=== PATIENT | female | born 1945 | race Caucasian/White ===

== ENCOUNTER 2017-09-17 17:00 | Emergency (ER) | payer MEDICARE, SELFPAY | END 2017-09-17 20:31 | disposition home or self-care (01) | PROVIDERS: Emergency Provider Emergency Medicine; Visit Provider Emergency Medicine | DX: G43.001 Migraine without aura, not intractable, with status migrainosus (principal); I10 Essential (primary) hypertension; E78.5 Hyperlipidemia, unspecified; J44.9 Chronic obstructive pulmonary disease, unspecified; E11.9 Type 2 diabetes mellitus without complications; Z90.49 Acquired absence of other specified parts of digestive tract; Z95.0 Presence of cardiac pacemaker; Z79.01 Long term (current) use of anticoagulants; Z79.4 Long term (current) use of insulin; Z79.899 Other long term (current) drug therapy; Z91.041 Radiographic dye allergy status; Z88.2 Allergy status to sulfonamides; Z88.8 Allergy status to other drugs, medicaments and biological substances; Z91.048 Other nonmedicinal substance allergy status; I69.320 Aphasia following cerebral infarction; I69.351 Hemiplegia and hemiparesis following cerebral infarction affecting right dominant side; I67.1 Cerebral aneurysm, nonruptured; Z91.81 History of falling | CPT/HCPCS: 70450; 71010; 80053; 82550; 82553; 84484; 85025; 93005; 93041; 96374; 96375; 96376; 99285; J2405 ==

== ENCOUNTER 2017-09-22 09:07 | Emergency (ER) | payer MEDICARE, SELFPAY | END 2017-09-22 11:53 | disposition home or self-care (01) | PROVIDERS: Emergency Provider Emergency Medicine; Family Provider Internal Medicine; Visit Provider Emergency Medicine | DX: R10.31 Right lower quadrant pain (principal); I10 Essential (primary) hypertension; E78.5 Hyperlipidemia, unspecified; J44.9 Chronic obstructive pulmonary disease, unspecified; E11.9 Type 2 diabetes mellitus without complications; Z79.4 Long term (current) use of insulin; Z88.8 Allergy status to other drugs, medicaments and biological substances | CPT/HCPCS: 74176; 80053; 81001; 83690; 85025; 96365; 96372; 96375; 96376; 99284; J2405 ==

== ENCOUNTER 2017-09-23 14:09 | Emergency (ER) | payer MEDICARE, SELFPAY | END 2017-09-23 17:10 | disposition short-term general hospital (02) | PROVIDERS: Emergency Provider Emergency Medicine; Family Provider Internal Medicine; Visit Provider Emergency Medicine | DX: R10.31 Right lower quadrant pain (principal); E11.65 Type 2 diabetes mellitus with hyperglycemia; Z79.4 Long term (current) use of insulin; I10 Essential (primary) hypertension; E78.5 Hyperlipidemia, unspecified; J44.9 Chronic obstructive pulmonary disease, unspecified; Z79.899 Other long term (current) drug therapy; Z88.8 Allergy status to other drugs, medicaments and biological substances; Z88.2 Allergy status to sulfonamides; F41.8 Other specified anxiety disorders; R06.09 Other forms of dyspnea | CPT/HCPCS: 74176; 80053; 83690; 83880; 84484; 85025; 85610; 85730; 93005; 93041; 99284 ==

== ENCOUNTER → 2017-09-23 | Outpatient (CLI) | payer MEDICARE, SELFPAY | PROVIDERS: Family Provider Internal Medicine; Visit Provider Internal Medicine | DX: M25.551 Pain in right hip (principal) | CPT/HCPCS: 73502 ==

== ENCOUNTER → 2017-10-24 15:41 | Outpatient (POV) | payer MEDICARE, SELFPAY ==
[2017-10-24 16:25] VITALS: BP 99/59; PULSE 75; RESP 18; TEMP 36.3; O2SAT 92
--- NOTE | 2017-10-24 16:36 | HMH.PMCON ---
Assessment and Plan (1) Lumbosacral radiculopathy due to degenerative joint disease of spine Current visit: Yes Status: Chronic Category: Medical Code(s): M47.27 - Other spondylosis with radiculopathy, lumbosacral region (2) Degenerative joint disease (DJD) of lumbar spine Current visit: Yes Status: Chronic Category: Medical Code(s): M47.816 - Spondylosis without myelopathy or radiculopathy, lumbar region - Assessment and plan all Dx Assessment and Plan for all problems:: This patient is on Eliquis. We will seek approval for her to come off her else. He has not had any injections I do believe the first place to start is with a lumbar epidural steroid injection. We will seek approval and plan a lumbar epidural steroid injection. Prior to this she needs to be off of her Eliquis for approximately 3 days. She is on a fentanyl patch and oxycodone prescribed by Dr. Medel. She can remain on these for now and he can continue prescribing these medications. HPI - Data of Consult Patient: new to practice Consult date: 10/24/17 Requesting Physician: Shiva Ritchie MD Primary Care Provider: Geovany Medel [facility] Provider: Geovany Medel - Consult Narrative Reason for consult: Low back pain History of present illness: Ms. Leon is a 72 year old female who has a long history of low back pain with previous back surgery. She was currently under the care of the pain clinic at the [facility]. She is currently medically managed with a fentanyl patch 50 mcg +12.5 mcg every 3 days along with oxycodone for breakthrough. She is doing well up until recently when she fell. Most of her pain is in her back. She does have pain going on the right leg. She has a below-knee amputation left leg. She has not had any injections. She is currently on Eliquis. Pain is worsened significantly since a fall. Pain score is a 9-10 out of 10. She has been nonfunctional since her fall. CC: Shiva Ritchie MD [facility] History I have reviewed the patient's past medical history: Yes Medical History: Reports:: Aneurysm, Atrial Fibrillation, Hypertension Other Surgeries: Yes: Pacemaker Amputation: No Fractures: No - *Social History Educational Level: Completed High School Smoking Status: Never smoker Alcohol Intake: never Occupational Status: disabled Housing: house Household Members: spouse - Psychiatric History Expresses thoughts of harming self/others: None Suicide Plan Description: No Plan Review of Systems - Review of Systems Review of systems:: pertinent systems reviewed and negative unless documented below - *Musculoskeletal Reports joint pain, Reports back pain, Reports limited joint movement - *Neurologic Reports radiating pain Meds Allergies Allergy/AdvReac Type Severity Reaction Status Date / Time amitriptyline [From Elavil] Allergy Severe T-[id number]-YCPC/THROAT; Unverified 09/20/17 14:41 SEIZURES chlorpromazine Allergy Severe SEIZURES Unverified 09/20/17 14:41 [From Thorazine] dichloralphenazone Allergy Severe S-SWELLS-OR Unverified 09/20/17 14:41 [From Midrin] AL/THROAT isometheptene [From Midrin] Allergy Severe S-SWELLS-OR Unverified 09/20/17 14:41 AL/THROAT prochlorperazine Allergy Severe SEIZURES Unverified 09/20/17 14:41 [From Compazine] acetaminophen [From MIDRIN] Allergy Intermediate Unverified 09/20/17 14:41 adhesive tape Allergy Intermediate I-RASH Unverified 09/20/17 14:41 aspirin Allergy Intermediate COLD Unverified 09/20/17 14:41 SWEATS , N/V cyclobenzaprine Allergy Unknown Unverified 09/20/17 14:41 [From FLEXERIL] duloxetine [DULOXETINE] Allergy Unknown Unverified 09/20/17 14:41 Iodinated Contrast Media - Allergy Unknown Unverified 09/20/17 14:41 Oral and [IODINATED CONTRAST MEDIA - ORAL AND] Sulfa (Sulfonamide Allergy Unknown CONTRAINDICATED Unverified 09/20/17 14:41 Antibiotics) WITH ASTHMA trimethoprim [TRIMETHOPRIM] Allergy U
--- NOTE | 2017-10-24 16:39 | P.CONS_ITS ---
Assessment and Plan (1) Lumbosacral radiculopathy due to degenerative joint disease of spine Current visit: Yes Status: Chronic Category: Medical Code(s): M47.27 - Other spondylosis with radiculopathy, lumbosacral region (2) Degenerative joint disease (DJD) of lumbar spine Current visit: Yes Status: Chronic Category: Medical Code(s): M47.816 - Spondylosis without myelopathy or radiculopathy, lumbar region - Assessment and plan all Dx Assessment and Plan for all problems:: This patient is on Eliquis. We will seek approval for her to come off her else. He has not had any injections I do believe the first place to start is with a lumbar epidural steroid injection. We will seek approval and plan a lumbar epidural steroid injection. Prior to this she needs to be off of her Eliquis for approximately 3 days. She is on a fentanyl patch and oxycodone prescribed by Dr. Medel. She can remain on these for now and he can continue prescribing these medications. HPI - Data of Consult Patient: new to practice Consult date: 10/24/17 Requesting Physician: Shiva Ritchie MD Primary Care Provider: Geovany Medel [facility] Provider: Geovany Medel - Consult Narrative Reason for consult: Low back pain History of present illness: Ms. Leon is a 72 year old female who has a long history of low back pain with previous back surgery. She was currently under the care of the pain clinic at the [facility]. She is currently medically managed with a fentanyl patch 50 mcg +12.5 mcg every 3 days along with oxycodone for breakthrough. She is doing well up until recently when she fell. Most of her pain is in her back. She does have pain going on the right leg. She has a below-knee amputation left leg. She has not had any injections. She is currently on Eliquis. Pain is worsened significantly since a fall. Pain score is a 9-10 out of 10. She has been nonfunctional since her fall. CC: Shiva Ritchie MD [facility] History I have reviewed the patient's past medical history: Yes Medical History: Reports:: Aneurysm, Atrial Fibrillation, Hypertension Other Surgeries: Yes: Pacemaker Amputation: No Fractures: No - *Social History Educational Level: Completed High School Smoking Status: Never smoker Alcohol Intake: never Occupational Status: disabled Housing: house Household Members: spouse - Psychiatric History Expresses thoughts of harming self/others: None Suicide Plan Description: No Plan Review of Systems - Review of Systems Review of systems:: pertinent systems reviewed and negative unless documented below - *Musculoskeletal Reports joint pain, Reports back pain, Reports limited joint movement - *Neurologic Reports radiating pain Meds Allergies Allergy/AdvReac Type Severity Reaction Status Date / Time amitriptyline [From Elavil] Allergy Severe U-[id number]-ICDK/THROAT; Unverified 14:41 SEIZURES chlorpromazine Allergy Severe SEIZURES Unverified 09/20/17 14:41 [From Thorazine] dichloralphenazone Allergy Severe S-SWELLS-OR Unverified 09/20/17 14:41 [From Midrin] AL/THROAT isometheptene [From Midrin] Allergy Severe S-SWELLS-OR Unverified 09/20/17 14:41 AL/THROAT prochlorperazine Allergy Severe SEIZURES Unverified 09/20/17 14:41 [From Compazine] acetaminophen [From MIDRIN] Allergy Intermediate Unverified 09/20/17 14:41 adhesive tape Allergy Intermediate I-RASH Unverified 09/20/17 14:41 aspirin Allergy Intermediate
== END ==
PROVIDERS: Family Provider Internal Medicine; PCP Internal Medicine; Visit Provider Anesthesiology
DX: M47.816 Spondylosis without myelopathy or radiculopathy, lumbar region (principal); M47.27 Other spondylosis with radiculopathy, lumbosacral region
CPT/HCPCS: 99202

== ENCOUNTER → 2017-11-25 13:53 | Day surgery (SDC) | payer MEDICARE, SELFPAY ==
[2017-11-25 14:35] VITALS: BP 136/70; PULSE 76; RESP 18; O2SAT 97; BMI 29.1
[2017-11-25 14:51] VITALS: BP 152/87; PULSE 72; RESP 18
--- NOTE | 2017-11-25 14:53 | HMH.PMPROC ---
- Procedure Date: 11/25/17 Time: 14:53 Anesthesiologist:: Shiva Ritchie MD Complications:: None Pre-procedure Diagnosis:: Degenerative disc disease of lumbar spine with lumbar radiculopathy symptoms Post-procedure Diagnosis:: Same Indications for Procedure:: This patient is a pleasant 72-year-old white female who we are seeing for low back pain with lumbar radiculopathy symptoms. She has had previous back surgery with hardware in place. She was on Eliquis. Been off her Eliquis for 4 days. She is on no patch and oxycodone prescribed by Dr. Medel. She presents for lumbar epidural steroid injection today to see if this gives her some benefit. Procedure Details:: Lumbar epidural steroid injection Informed consent was obtained and the risk and benefits of the procedure was explained to the patient. The patient was taken to the procedure room. The patient was placed prone on the procedure table. The patient was prepped and draped in sterile fashion. C-arm fluoroscopy was used to view the lumbar spine. Skin and subcutaneous tissues were anesthetized using lidocaine. I placed an 18-gauge epidural needle and advanced into the L5-S1 interspace using fluoroscopic guidance and [id number] to air. After confirmation of needle placement in the epidural space with dye I injected 2 mL of lidocaine 1.5% with Depo-Medrol 80 mg. Patient tolerated the procedure well with no complications. Plan and Disposition:: She may restart her Eliquis tomorrow. We will follow-up with her in 2 weeks to reevaluate her symptoms. She may be a pump candidate if she does not get any relief with the injections.
[2017-11-25 14:55] VITALS: BP 155/88; PULSE 75; RESP 18; O2SAT 92
--- NOTE | 2017-11-25 14:58 | P.PCN_ITS ---
- Procedure Date: 11/25/17 Time: 14:53 Anesthesiologist:: Shiva Ritchie MD Complications:: None Pre-procedure Diagnosis:: Degenerative disc disease of lumbar spine with lumbar radiculopathy symptoms Post-procedure Diagnosis:: Same Indications for Procedure:: This patient is a pleasant 72-year-old white female who we are seeing for low back pain with lumbar radiculopathy symptoms. She has had previous back surgery with hardware in place. She was on Eliquis. Been off her Eliquis for 4 days. She is on no patch and oxycodone prescribed by Dr. Medel. She presents for lumbar epidural steroid injection today to see if this gives her some benefit. Procedure Details:: Lumbar epidural steroid injection Informed consent was obtained and the risk and benefits of the procedure was explained to the patient. The patient was taken to the procedure room. The patient was placed prone on the procedure table. The patient was prepped and draped in sterile fashion. C-arm fluoroscopy was used to view the lumbar spine. Skin and subcutaneous tissues were anesthetized using lidocaine. I placed an 18-gauge epidural needle and advanced into the L5-S1 interspace using fluoroscopic guidance and [id number] to air. After confirmation of needle placement in the epidural space with dye I injected 2 mL of lidocaine 1.5 % with Depo-Medrol 80 mg. Patient tolerated the procedure well with no complications. Plan and Disposition:: She may restart her Eliquis tomorrow. We will follow-up with her in 2 weeks to reevaluate her symptoms. She may be a pump candidate if she does not get any relief with the injections.
[2017-11-25 15:03] VITALS: BP 113/74; PULSE 76; RESP 18; O2SAT 95
== END ==
PROVIDERS: Family Provider Internal Medicine; PCP Internal Medicine; Visit Provider Anesthesiology
DX: M51.16 Intervertebral disc disorders with radiculopathy, lumbar region (principal)
CPT/HCPCS: 62323; J1040

== ENCOUNTER 2017-12-22 11:10 | Emergency (ER) | payer MEDICARE, SELFPAY ==
[2017-12-22 11:19] VITALS: BP 101/66; PULSE 76; RESP 16; TEMP 37.3; O2SAT 96; BMI 29.9
--- NOTE | 2017-12-22 11:42 | CT_ITS ---
CT head/brain wo con HISTORY: Altered mental status, altered level consciousness, confusion, right-sided weakness ITS.REASON: ams ORDERING PHYSICIAN: iHen Bocanegra MD PATIENT AGE: 72 years COMPARISON: None TECHNIQUE: Axial images obtained without contrast. Brain and bone windows reviewed. All CT scans at the facility use one or more dose reduction, viz: automated exposure control; ma/kV adjustment per patient size (including targeted exams where dose is matched to indication; i.e. head); or iterative reconstruction technique. FINDINGS: No midline shift, mass effect, intracranial hemorrhage, hydrocephalus, or extra-axial fluid collection is evident. Subtle low density changes are present in the periventricular white matter consistent with ischemic gliotic change from microvascular disease. The calvarium has an unremarkable appearance. No mastoid effusion. No sinus air-fluid levels.. IMPRESSION: 1. No acute finding. 2. There is no evidence of intracranial hemorrhage, focal mass, or acute territorial infarction. A negative CT does not exclude an acute CVA. A follow-up head CT or MRI is recommended if neurological symptoms persist .
--- NOTE | 2017-12-22 11:42 | XR_ITS ---
XR chest AP HISTORY: Altered mental status, history of heart disease ITS.REASON: ams ORDERING PHYSICIAN: Hien Bocanegra MD PATIENT AGE: 72 years COMPARISON: 09/23/2017 FINDINGS: Mild cardiomegaly without failure. Bipolar pacemaker is present in left subclavian approach. Lungs are clear bilaterally. No acute bony anomalies. IMPRESSION: Cardiomegaly, no change with no acute finding.
--- NOTE | 2017-12-22 12:20 | HMH.EDWEAK ---
ED Disposition Clinical Impression: UTI (urinary tract infection), Chronic pain disorder Disposition: Home, Self-Care Condition on Discharge: Good Instructions: DI for Altered Mental Status, DI for Chronic Pain -- Adult, Urinary Tract Infection Additional Instructions: Macrobid, encourage fluids for mild dehydration; see Dr. Medel for follow up this week and also follow up with pain management in case the Fentanyl dose is a little high for you. Prescriptions: Nitrofurantoin Monohyd/M-Cryst [Macrobid 100 mg Capsule] 100 mg PO BID 10 Days #20 cap Referrals: Geovany Medel [Primary Care Provider] - - Critical Care Critical Care Time: No Attestation: On 12/22/17, the high probability of a clinically significant, sudden or life threatening deterioration of the following system(s) required my full and direct attention, intervention and personal management. The time I documented below is in addition to time spent performing reported procedures but includes the following listed in this critical care notation. Medical Decision Making - Abraham Inquiry Pt receiving controlled substance: No (already on controlled substance per pain management) Vital Signs: 12/22/17 11:19 Temperature 99.1 F Temperature Source Oral Pulse Rate [Right Radial] 76 Respiratory Rate 16 Blood Pressure [Right Arm] 101/66 Blood Pressure Mean [Right Arm] 77 Blood Pressure Source [Right Arm] Automatic Cuff Blood Pressure Position [Right Arm] Sitting 02 Sat by Pulse Oximetry 96 Oxygen Delivery Method Room Air - Lab Data Lab results reviewed: Yes: I reviewed the patient's lab results. Lab Results 12/22/17 12:28: Urine Color Yellow, Urine Appearance Clear, Urine pH 5.5, Ur Specific [place] 1.010, Urine Protein Negative, Urine Glucose (UA) 3+, Urine Ketones Negative, Urine Blood Negative, Urine Nitrate Negative, Urine Bilirubin Negative, Urine Urobilinogen 0.2, Ur Leukocyte Esterase Negative, Urine RBC Occasional, Urine WBC 10-20, Ur Squamous Epith Cells 5-10, Urine Bacteria Trace 12/22/17 12:30: WBC 6.5, RBC 3.92 L, Hgb 12.1 L, Hct 38.8, MCV 99.1 H, MCH 30.9, MCHC 31.2 L, RDW 13.7, Plt Count 171, MPV 8.5, Neut % (Auto) 49.4, Lymph % (Auto) 42.2, [place] % (Auto) 4.4, Eos % (Auto) 3.8, Baso % (Auto) 0.2, Neut # (Auto) 3.2, Lymph # (Auto) 2.7, [place] # (Auto) 0.3, Eos # (Auto) 0.3, Baso # (Auto) 0.0 12/22/17 12:30: Sodium 137, Potassium 5.4 H, Chloride 99, Carbon Dioxide 33 H, Anion Gap 10.4, BUN 29 H, Creatinine 1.72 H, Estimated Creat Clear 39, Estimated GFR 29 L, Est GFR ( Amer) 35 L, Glucose 317 H, Calcium 8.7, Total Bilirubin 0.3, AST 9 L, ALT 16, Alkaline Phosphatase 158 H, Total Protein 6.9, Albumin 3.2 L, Globulin 3.7 H, Albumin/Globulin Ratio 0.9 L 12/22/17 12:30: PT 10.6, INR 0.98 12/22/17 12:30: Total Creatine Kinase 58, CK-MB (CK-2) 0.8, CK-MB (CK-2) Rel Index 1.4, Troponin I < 0.02 12/22/17 13:11: POC Glucose 291 Result diagrams: 12/22/17 12:30 12/22/17 12:30 Orders (Tests/Meds): ORDERS Category Date Time Status Urine Culture Stat Micro 12/22/17 12:28 Received - Radiology Data #1 Image(s): Chest Image Reviewed: Yes I reviewed the patient's radiology results Preliminary Findings: Normal/NAD, No Infiltrates Seen, Normal Lung Inflation Larry - CT Data CT Scan: Head Time Received: 13:[address] Reviewed: Yes: I have reviewed the patient's CT results Preliminary Findings: Normal/NAD (neg acute per radiology report review) - ECG Data Tracing #1 I reviewed this ECG and interpreted as documented below: ECG initial impression date: 12/22/17 ECG initial impression time: 12:10 Normal Sinus Rhythm: No (hx Afib; is rate controlled today 75-100's w good v response) Arrhythmias present: afib - Reevaluation(s) Time: 13:32 (alert, no complaints at d/c) Weakness HPI - General Chief complaint: Altered Mental Status Stated complaint: high sugar ams Time Seen by Provider: 12/22/17 12:00 Mode of Arrival: Wheelchair [facility]
--- NOTE | 2017-12-22 12:24 | ED_ITS ---
ED Disposition Clinical Impression: UTI (urinary tract infection), Chronic pain disorder Disposition: Home, Self-Care Condition on Discharge: Good Instructions: DI for Altered Mental Status, DI for Chronic Pain -- Adult, Urinary Tract Infection Additional Instructions: Macrobid, encourage fluids for mild dehydration; see Dr. Medel for follow up this week and also follow up with pain management in case the Fentanyl dose is a little high for you. Prescriptions: Nitrofurantoin Monohyd/M-Cryst [Macrobid 100 mg Capsule] 100 mg PO BID 10 Days # 20 cap Referrals: Geovany Medel [Primary Care Provider] - - Critical Care Critical Care Time: No Attestation: On 12/22/17, the high probability of a clinically significant, sudden or life threatening deterioration of the following system(s) required my full and direct attention, intervention and personal management. The time I documented below is in addition to time spent performing reported procedures but includes the following listed in this critical care notation. Medical Decision Making - Abraham Inquiry Pt receiving controlled substance: No (already on controlled substance per pain management) Vital Signs: 12/22/17 11:19 Temperature 99.1 F Temperature Source Oral Pulse Rate [Right Radial] 76 Respiratory Rate 16 Blood Pressure [Right Arm] 101/66 Blood Pressure Mean [Right Arm] 77 Blood Pressure Source [Right Arm] Automatic Cuff Blood Pressure Position [Right Arm] Sitting 02 Sat by Pulse Oximetry 96 Oxygen Delivery Method Room Air - Lab Data Lab results reviewed: Yes: I reviewed the patient's lab results. Lab Results 12/22/17 12:28: Urine Color Yellow, Urine Appearance Clear, Urine pH 5.5, Ur Specific [place] 1.010, Urine Protein Negative, Urine Glucose (UA) 3+, Urine Ketones Negative, Urine Blood Negative, Urine Nitrate Negative, Urine Bilirubin Negative, Urine Urobilinogen 0.2, Ur Leukocyte Esterase Negative, Urine RBC Occasional, Urine WBC 10-20, Ur Squamous Epith Cells 5-10, Urine Bacteria Trace 12/22/17 12:30: WBC 6.5, RBC 3.92 L, Hgb 12.1 L, Hct 38.8, MCV 99.1 H, MCH 30.9 , MCHC 31.2 L, RDW 13.7, Plt Count 171, MPV 8.5, Neut % (Auto) 49.4, Lymph % ( Auto) 42.2, [place] % (Auto) 4.4, Eos % (Auto) 3.8, Baso % (Auto) 0.2, Neut # (Auto ) 3.2, Lymph # (Auto) 2.7, [place] # (Auto) 0.3, Eos # (Auto) 0.3, Baso # (Auto) 0.0 12/22/17 12:30: Sodium 137, Potassium 5.4 H, Chloride 99, Carbon Dioxide 33 H, Anion Gap 10.4, BUN 29 H, Creatinine 1.72 H, Estimated Creat Clear 39, Estimated GFR 29 L, Est GFR ( Amer) 35 L, Glucose 317 H, Calcium 8.7, Total Bilirubin 0.3, AST 9 L, ALT 16, Alkaline Phosphatase 158 H, Total Protein 6.9, Albumin 3.2 L, Globulin 3.7 H, Albumin/Globulin Ratio 0.9 L 12/22/17 12:30: PT 10.6, INR 0.98 12/22/17 12:30: Total Creatine Kinase 58, CK-MB (CK-2) 0.8, CK-MB (CK-2) Rel Index 1.4, Troponin I < 0.02 12/22/17 13:11: POC Glucose 291 Result diagrams: 12/22/17 12:30 12/22/17 12:30 Orders (Tests/Meds): ORDERS Category Date Time Status Urine Culture Stat Micro 12/22/17 12:28 Received - Radiology Data #1 Image(s): Chest Image Reviewed: Yes I reviewed the patient's radiology results Preliminary Findings: Normal/NAD, No Infiltrates Seen, Normal Lung Inflation Larry - CT Data CT Scan: Head Time Received: 13:[address] Reviewed: Yes: I have reviewed the patient's CT results Preliminary Findings: Normal/NAD (neg acute per radiology report review)
[2017-12-22 12:39] LABS: Microscopic, Urine URINE MICROSCOPIC (MICROSCOPIC)
[2017-12-22 12:41] LABS: Appearance,Urine CLEAR (Clear); Bilirubin,Urine Negative (Negative); Blood, Urine Negative (Negative); Color,Urine YELLOW (Yellow); Glucose,Urine (UA) 3+ (Negative); Ketones,Urine Negative (Negative); Leukocyte Esterase,Urine Negative (Negative); Nitrate,Urine Negative (Negative); PH,Urine 5.5 (5.0-8.5); Protein,Urine Negative (Negative); Urobilinogen,Urine 0.2 EU/dl (0.2)
--- NOTE | 2017-12-22 12:46 | PC.NURSE ---
fentanyl patch removed by myself as ordered by dr olvera. assessing to see if pt's loc increases.
[2017-12-22 12:51] LABS: Basophils % 0.2 % (0.1-2.0); Eosinophils # 0.3 K/mm3 (0.0-0.4); Eosinophils % 3.8 % (0.1-12.0); Hematocrit 38.8 % (37.0-47.0); Hemoglobin 12.1 g/dL (12.2-16.2); Lymphocytes # 2.7 K/mm3 (0.7-4.5); Lymphocytes % 42.2 K/mm3 (10-50); Mean Corpuscular HGB Conc 31.2 g/dL (31.8-35.4); Mean Corpuscular Hemoglobin 30.9 pg (27.0-31.2); Mean Corpuscular Volume 99.1 fl (81-99); Mean Platelet Volume 8.5 fl (7.4-10.4); Monocytes # 0.3 K/mm3 (0.1-1.0); Monocytes % 4.4 % (1.7-9.3); Neutrophils # 3.2 K/mm3 (1.8-7.8); Neutrophils % 49.4 % (37.0-80.0); Platelet Count 171 K/mm3 (142-424); Red Blood Count 3.92 M/mm3 (4.20-5.40); Red Cell Distribution Width 13.7 % (11.5-17.5); White Blood Count 6.5 K/mm3 (4.8-10.8)
[2017-12-22 13:00] LABS: INR 0.98 (0.9-1.1); Prothrombin Time 10.6 seconds (9.4-11.8)
[2017-12-22 13:03] LABS: Bacteria,Urine Trace /lpf; RBC,Urine Occasional #/hpf (0-3)
[2017-12-22 13:21] LABS: POC Glucose,Bedside 291 mg/dL (70-110)
[2017-12-22 13:23] LABS: Alanine Aminotransferase 16 U/L (12-78); Albumin Level 3.2 gm/dL (3.4-5.0); Albumin/Globulin Ratio 0.9 (1.1-1.8); Alkaline Phosphatase 158 U/L (46-116); Anion Gap 10.4 mEq/L (5-15); Aspartate Amino Transferase 9 U/L (15-37); Bilirubin,Total 0.3 mg/dL (0.2-1.0); Blood Urea Nitrogen 29 mg/dL (7-18); Calcium 8.7 mg/dL (8.5-10.1); Carbon Dioxide 33 mmol/L (21.0-32.0); Chloride 99 mmol/L (98-107); Creatinine Clearance Estimated 39 mL/min (0-300); Creatinine,Serum 1.72 mg/dL (0.55-1.02); Estimated Glomerular Filt Rate 29 ml/min (>60); GFR (African American) 35 ML/MIN (>60); Globulin 3.7 gm/dl (1.3-3.2); Glucose 317 mg/dL (74-106); Potassium 5.4 mmoL/L (3.5-5.1); Sodium 137 mmol/L (136-145); Total Protein,Serum 6.9 gm/dL (6.4-8.2)
[2017-12-22 13:26] LABS: CKMB Relative Index 1.4 U/L (0-4.0); Creatine Kinase 58 U/L (26-192); Creatine Kinase MB 0.8 ng/ml (0.0-3.6); Troponin I < 0.02 ng/ml (0.00-0.06)
[2017-12-22 13:55] VITALS: BP 118/65; PULSE 72; RESP 18; TEMP 37; O2SAT 92
== END 2017-12-22 13:57 | disposition home or self-care (01) ==
PROVIDERS: Emergency Provider Emergency Medicine; Family Provider Internal Medicine; PCP Internal Medicine
DX: N30.00 Acute cystitis without hematuria (principal); G89.4 Chronic pain syndrome; E11.65 Type 2 diabetes mellitus with hyperglycemia; Z79.84 Long term (current) use of oral hypoglycemic drugs; I10 Essential (primary) hypertension; I48.2 Chronic atrial fibrillation; Z95.0 Presence of cardiac pacemaker; Z88.6 Allergy status to analgesic agent; Z88.2 Allergy status to sulfonamides; I69.351 Hemiplegia and hemiparesis following cerebral infarction affecting right dominant side
CPT/HCPCS: 70450; 71045; 80053; 81001; 82550; 82553; 82962; 84484; 85025; 85610; 87086; 93005; 99283

== ENCOUNTER → 2017-12-26 15:07 | Outpatient (POV) | payer MEDICARE, SELFPAY ==
[2017-12-26 15:14] VITALS: BP 113/69; PULSE 56; RESP 18; TEMP 36.7; O2SAT 93; BMI 29.9
--- NOTE | 2017-12-26 16:02 | HMH.PAINSOAP ---
[facility] Pain Management SOAP Note Subjective:: Patient is a 72-year-old white female who comes for follow-up after her lumbar epidural steroid injection. Patient denies any relief from this injection she states that she had no relief even when she was numb. Patient recently has seen a neurosurgeon who states that she did not a surgical candidate at this time. Patient's symptomology is correlating more with a right SI issue. Patient has extreme point tenderness over her right SI joint and has a right inguinal pain. Patient rates her pain an 8 out of 10 today. Patient describes her pain as aching constant. patient uses a walker to help her walk. Patient is on Eliquis. Patient is currently being medically managed by her primary care physician with fentanyl patches, oxycodone, gabapentin, alprazolam. We will also give the patient a back brace today. I believe that this may help be helpful for her. ROS General: no recent weight change, no fever, no sleep disturbances Respiratory: no cough, no shortness of air, no recurring pulmonary infections Cardiovascular/Peripheral Vascular: No chest pain, No palpitations, no edema, no shortness of breath. Gastrointestinal: no incontinence, normal bowel movements reported Genitourinary: no incontinence Musculoskeletal: Back pain, right leg pain, right SI joint pain Psychiatric: normal mood/ affect Neurological: [denies weakness in extremities], [denies balance issues] Objective:: Physical Exam General: Alert and oriented x3, no acute distress, pleasant and cooperative, [on room air] Lungs: Resps E/U, Symmetrical chest expansion, Eyes: PERRL Musculoskeletal: Flexion and extension of lumbar spine somewhat guarded secondary to pain, deep tendon reflexes normal, strength in upper and lower extremities [5/5], [abnormal gait noted], positive Dalia's test on the right side, extreme point tenderness over right SI joint Neurological: speech clear, director of entertainment equal, no gross sensory deficits Assessment:: Degenerative disc disease of the lumbar spine with lumbar radiculopathy symptoms, postlaminectomy syndrome, sacroiliitis Plan:: I will schedule a right SI joint injection for the patient. I believe that this may be beneficial for her given her symptomology. Patient does have extreme point tenderness over her SI joint as well as a positive Dalia's test on that side. Patient has tried and failed physical therapy in the past she is also on medication which does not relieve her pain. She is also tried and failed anti-inflammatories. This note was dictated using voice recognition software contain errors or omissions
--- NOTE | 2017-12-26 16:05 | P.CONS_ITS ---
[facility] Pain Management SOAP Note Subjective:: Patient is a 72-year-old white female who comes for follow-up after her lumbar epidural steroid injection. Patient denies any relief from this injection she states that she had no relief even when she was numb. Patient recently has seen a neurosurgeon who states that she did not a surgical candidate at this time. Patient's symptomology is correlating more with a right SI issue. Patient has extreme point tenderness over her right SI joint and has a right inguinal pain. Patient rates her pain an 8 out of 10 today. Patient describes her pain as aching constant. patient uses a walker to help her walk. Patient is on Eliquis. Patient is currently being medically managed by her primary care physician with fentanyl patches, oxycodone, gabapentin, alprazolam. We will also give the patient a back brace today. I believe that this may help be helpful for her. ROS General: no recent weight change, no fever, no sleep disturbances Respiratory: no cough, no shortness of air, no recurring pulmonary infections Cardiovascular/Peripheral Vascular: No chest pain, No palpitations, no edema, no shortness of breath. Gastrointestinal: no incontinence, normal bowel movements reported Genitourinary: no incontinence Musculoskeletal: Back pain, right leg pain, right SI joint pain Psychiatric: normal mood/ affect Neurological: [denies weakness in extremities], [denies balance issues] Objective:: Physical Exam General: Alert and oriented x3, no acute distress, pleasant and cooperative, [ on room air] Lungs: Resps E/U, Symmetrical chest expansion, Eyes: PERRL Musculoskeletal: Flexion and extension of lumbar spine somewhat guarded secondary to pain, deep tendon reflexes normal, strength in upper and lower extremities [5/5], [abnormal gait noted], positive Dalia's test on the right side, extreme point tenderness over right SI joint Neurological: 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 I believe that this may be beneficial for her given her symptomology. Patient does have extreme point tenderness over her SI joint as well as a positive Dalia's test on that side. Patient has tried and failed physical therapy in the past she is also on medication which does not relieve her pain. She is also tried and failed anti-inflammatories. This note was dictated using voice recognition software contain errors or omissions
== END ==
PROVIDERS: Family Provider Internal Medicine; PCP Internal Medicine; Visit Provider Clinical Nurse Specialist Family Health
DX: M54.16 Radiculopathy, lumbar region (principal)
CPT/HCPCS: 99212

== ENCOUNTER → 2017-12-30 18:30 | Outpatient (REF) | payer MEDICARE, SELFPAY | LOC: LAB 18:30 | PROVIDERS: Visit Provider Internal Medicine | DX: N39.0 Urinary tract infection, site not specified (principal); E11.42 Type 2 diabetes mellitus with diabetic polyneuropathy; M54.5 Low back pain | CPT/HCPCS: 87086 ==

== ENCOUNTER → 2018-01-06 13:59 | Day surgery (SDC) | payer MEDICARE, SELFPAY ==
--- NOTE | 2018-01-06 14:26 | PC.NURSE ---
when pt came back to get checked in for injection her bp was 88/44 in one arm and 95/41 in the other. pt stated she has had multiple near syncopal episodes today and increased visual loss and blurred vision. pt asked if we could call 's office to see if he could get her in and i called even though we suggested she go to the ED to get checked out. office was called and they said the pt needed to go to the ED.
== END ==
PROVIDERS: Family Provider Internal Medicine; PCP Internal Medicine; Visit Provider Anesthesiology
DX: Z53.21 Procedure and treatment not carried out due to patient leaving prior to being seen by health care provider (principal); M51.16 Intervertebral disc disorders with radiculopathy, lumbar region; M96.1 Postlaminectomy syndrome, not elsewhere classified; M46.1 Sacroiliitis, not elsewhere classified

== ENCOUNTER → 2018-01-30 09:45 | Outpatient (POV) | payer MEDICARE, SELFPAY ==
[2018-01-30 10:13] VITALS: BP 130/75; PULSE 78; RESP 18; TEMP 36.6; O2SAT 99; BMI 37.5
--- NOTE | 2018-01-30 10:20 | HMH.PAINSOAP ---
[facility] Pain Management SOAP Note Subjective:: This patient is a pleasant 72-year-old white female who we cancel previous procedures because of increased blood sugar and increased blood pressure. She is consulted with Dr. Medel and her medications have been changed. Her sugar is better under control now last one was 206. Her blood pressure is also better controlled. She is also currently on fentanyl patches, oxycodone, gabapentin and alprazolam. These medications are currently being prescribed and managed by Dr. Medel. I do believe that she would benefit from a right SI joint injection. She is tender over the right SI joint. Most of her pain is emanating from this area. She does have a positive Dalia's test on the right side. We will schedule for right SI joint injection as soon as possible. Objective:: Alert and oriented ?3 in no acute distress. Tenderness over the right SI joint. Motor strength of the lower extremities is 5/5. Patient does have an antalgic gait and needs assistance with a walker. There is no gross sensory deficit. Assessment:: Sacroiliitis. Degenerative disease of lumbar spine with postlaminectomy syndrome and lumbar radiculopathy symptoms. Plan:: Patient's blood sugar and blood pressure are better under control. We will schedule for right SI joint injection under fluoroscopy as soon as possible.
[2018-01-30 11:42] VITALS: BP 173/77; PULSE 77; RESP 18; TEMP 36.7; O2SAT 99; BMI 35.2
== END ==
PROVIDERS: Family Provider Internal Medicine; PCP Internal Medicine; Visit Provider Anesthesiology
DX: M54.16 Radiculopathy, lumbar region (principal)
CPT/HCPCS: 99212

== ENCOUNTER → 2018-02-13 10:39 | Outpatient (POV) | payer MEDICARE, SELFPAY ==
[2018-02-13 10:48] VITALS: BP 177/84; PULSE 77; RESP 20; TEMP 36.6; O2SAT 98; BMI 38.4
--- NOTE | 2018-02-13 13:17 | HMH.PAINSOAP ---
[facility] Pain Management SOAP Note Subjective:: Is a 72-year-old white female who presents today after SI joint injection. Patient is tearful today stating that she has been in extreme pain since the injection. Injection site is clean there is no puncture nagel noted there is no redness no swelling. Patient went to ER with pain was given morphine. Patient has been doubling her oxycodone dose per her primary care physician. Patient has not been able to take anti-inflammatories. Patient states she has been taking Tylenol. Patient has had surgery by Dr. Padilla on her lumbar spine. Patient does not have any updated imaging of her lumbar spine. Patient rates her pain a 10 out of 10 today. Mostly in her right lower back radiating into her groin. ROS General: no recent weight change, no fever, no sleep disturbances Respiratory: no cough, no shortness of air, no recurring pulmonary infections Cardiovascular/Peripheral Vascular: No chest pain, No palpitations, no edema, no shortness of breath. 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 Patient is diabetic she is to monitor her sugars. Patient and I had a long discussion about this. I will see the patient back in 1 week we will get an CT scan update of her lumbar spine to ensure that she has had no changes post surgery. She is unable to take anti-inflammatories, unable to take muscle relaxers. I do have some concern about potential hyper analgesia due to the amount of narcotic medication she receives. Patient's morphine equivalent is 210. This note was dictated using voice recognition software and may contain errors or omissions
== END ==
PROVIDERS: Family Provider Internal Medicine; PCP Internal Medicine; Visit Provider Clinical Nurse Specialist Family Health
DX: M46.1 Sacroiliitis, not elsewhere classified (principal)
CPT/HCPCS: 99212

== ENCOUNTER 2018-02-18 21:23 | Observation (INO) ==
--- NOTE | 2018-02-18 21:54 | Emergency Department Note ---
ED Disposition Clinical Impression: Hyperglycemia Hypotension Qualifiers: Hypotension type: unspecified hypotension type Qualified Code(s): I95.9 - Hypotension, unspecified Disposition: Still a Patient Condition on Discharge: Fair - Critical Care Critical Care Time: Yes Attestation: On 02/18/18, the high probability of a clinically significant, sudden or life threatening deterioration of the following system(s) required my full and direct attention, intervention and personal management. The time I documented below is in addition to time spent performing reported procedures but includes the following listed in this critical care notation. Total Critical Care Time: 35 Vital system(s) involved:: Circulatory Failure My critical care processes included: Assessment & monitoring of V/S, Initial and Re-exams, Data Review/Interpretation, Coordinating Care, Medication Orders and management, Documentation Medical Decision Making - Abraham Inquiry Pt receiving controlled substance: No Vital Signs: 02/18/18 21:27 02/18/18 23:45 02/19/18 00:00 Temperature 98.0 F Temperature Source Oral Pulse Rate [Right Radial] 74 77 77 Respiratory Rate 14 16 16 Blood Pressure [Right Arm] 86/46 84/51 84/51 Blood Pressure Mean [Right Arm] 59 62 62 Blood Pressure Source [Right Arm] Automatic Cuff Automatic Cuff Blood Pressure Position [Right Arm] Sitting Supine Sitting 02 Sat by Pulse Oximetry 93 L 96 96 Oxygen Delivery Method Room Air Room Air Room Air - Lab Data Lab Results 02/18/18 21:40: WBC 14.1 H, RBC 4.48, Hgb 13.9, Hct 44.8, MCV 100.0 H, MCH 30.9 , MCHC 30.9 L, RDW 13.4, Plt Count 231, MPV 9.4, Neut % (Auto) 69.3, Lymph % ( Auto) 25.6, [place] % (Auto) 4.3, Eos % (Auto) 0.7, Baso % (Auto) 0.1, Neut # (Auto ) 9.8 H, Lymph # (Auto) 3.6, [place] # (Auto) 0.6, Eos # (Auto) 0.1, Baso # (Auto) 0.0 02/18/18 21:40: Sodium 131 L, Potassium 4.4, Chloride 97 L, Carbon Dioxide 25, Anion Gap 13.4, BUN 56 H, Creatinine 2.24 H, Estimated Creat Clear 29, Estimated GFR 22 L, Est GFR ( Amer) 26 L, Glucose 469 H*, Calcium 9.3, Total Bilirubin 0.2, AST 13 L, ALT 18, Alkaline Phosphatase 175 H, Troponin I < 0.02, Total Protein 7.3, Albumin 3.4, Globulin 3.9 H, Albumin/Globulin Ratio 0.9 L 02/18/18 22:15: Lactic Acid 2.5 H 02/18/18 23:30: Urine Color Yellow, Urine Appearance Clear, Urine pH 5.5, Ur Specific [place] 1.015, Urine Protein Negative, Urine Glucose (UA) 3+, Urine Ketones Negative, Urine Blood 2+, Urine Nitrate Negative, Urine Bilirubin Negative, Urine Urobilinogen 0.2, Ur Leukocyte Esterase Negative, Urine RBC 20- 50, Urine Yeast 4+ 02/18/18 23:51: POC Glucose 497 H* Result diagrams: 02/18/18 21:40 02/18/18 21:40 Orders (Tests/Meds): ED MEDICATIONS Discontinued Medications Generic Name Dose Route Start Last Admin Trade Name Mary PRN Reason Stop Dose Admin Insulin Human Lispro 15 unit 02/18/18 22:41 02/18/18 23:03 Humalog 100 Units/Ml 3ml Vial (Ssi) SQ 02/18/18 22:42 15 unit ONCE ONE Administration Insulin Human Lispro 15 unit 02/18/18 23:54 02/19/18 00:06 Humalog 100 Units/Ml 3ml Vial (Ssi) SQ 02/18/18 23:55 15 unit ONCE ONE Administration Sodium Chloride 1,000 ml 02/18/18 21:54 02/18/18 22:57 Sod Chlor 0.9% 1000ml Bag IV 02/18/18 21:55 1,000 ml BOLUS ONE Administration ORDERS Category Date Time Status XR chest portable Stat Exams 02/18/18 21:53 Taken EKG Request [ECG Request by /Tevin] Stat Y 02/18/18 23:58 Ordered - Radiology Data #1 Image(s): Chest Image Reviewed: Yes I reviewed the patient's radiology image Preliminary Findings: Normal/NAD - ECG Data Tracing #1 EKG interpreted by Axel Bundy MD: Rhythm: Ventricular paced rhythm Rate: 75 No evidence of acute ischemia or injury - Physician Consults Physician Consulted: Jarvis Time: 00:03 Reason -: Admission Comment/Response: I have discussed the case with Dr. Conley who agrees to admit the patient to the hospital. We discussed the patient's clinical information, including history, exam, laboratory and radiology results and ED course. Per hospital procedure, I will write temporary bridge inpatient orders on the patient. Specific orders requested by the admitting physician: 2L IVF. sliding scale insulin. recheck labs in am. no tx for yeast in urine at this time. General Adult HPI - General Chief complaint: Dizziness Stated complaint: lOW BP,FELLS LIKE GOING TO PASS OUT Time Seen by Provider: 02/18/18 21:54 Mode of Arrival: Ambulatory Limitations: No Limitations Description of Symptoms (Recalled from ER Triage Doc. by RN): pt states about a week or two of low blood pressure with pre-syncope sensation - History of Present Illness HPI narrative: For the past week or 2 the patient has symptoms of orthostatic hypotension. Dizzy when she stands up. Gets sweaty with it. When she takes her blood pressure it has sometimes been on the 70. She called her PCP french who advised her to come to the emergency room. She is on blood pressure medication. She does not take it if her systolic is less than 100. She last took it this morning when her systolic blood pressure was 103. She has chronic pain and is on a fentanyl patch. She is on 50 mcg every 3 days. She also has a 12 mcg patch that she was using in addition to the 50 mcg patch, but stopped using it a couple of months ago, before restarting it 3 days ago. states the blood pressure problems have been worse since she began using the 12 mcg patch again. Just finished a steroid course last night. - Related Data Home Medications Medication Instructions Recorded Confirmed ALPRAZolam [Xanax 0.5mg tab] 0.5 mg PO TID 01/06/18 02/18/18 Apixaban [Eliquis] 5 mg PO BID 01/06/18 02/18/18 Atorvastatin Calcium [Atorvastatin 40 mg PO HS 01/06/18 02/18/18 40mg Tab] Bisoprolol Fumarate [Zebeta] 10 mg PO DAILY 01/06/18 02/18/18 Furosemide [Furosemide 40MG tAB] 40 mg PO DAILY 01/06/18 02/18/18 Gabapentin [Gabapentin 800mg Tab] 800 mg PO QID 01/06/18 02/18/18 Lisinopril [Lisinopril 10mg Tab] 10 mg PO DAILY 01/06/18 02/18/18 Melatonin 10 mg PO HS 01/06/18 02/18/18 Oxycodone HCl [Oxycodone (IR) 10mg 10 mg PO Q4H 01/06/18 02/18/18 Tab] Pantoprazole Sodium [Protonix 40mg 40 mg PO DAILY 01/06/18 02/18/18 (granule) packet] Polyethylene Glycol 3350 [Miralax 17 gm PO DAILY 01/06/18 02/18/18 Powder] Potassium Chloride [Klor-con 20 20 meq PO DAILY 01/06/18 02/18/18 mEq tablet] acetaminophen 325 mg capsule 325 mg PO Q6H PRN 02/07/18 02/18/18 fentanyl 50 mcg/hr transdermal 1 patch TRANSDERMA Q72H 02/07/18 02/18/18 patch insulin aspart U-100 100 unit/mL 5 unit SUB-Q QPM 02/07/18 02/18/18 subcutaneous solution insulin glargine (U-100) 100 100 unit SUB-Q QHS 02/07/18 02/18/18 unit/mL subcutaneous solution Allergies Allergy/AdvReac Type Severity Reaction Status Date / Time amitriptyline [From Elavil] Allergy Severe T-[id number]/THROAT; Verified 21:38 SEIZURES chlorpromazine Allergy Severe SEIZURES Verified 02/18/18 21:38 [From Thorazine] dichloralphenazone Allergy Severe S-SWELLS-OR Verified 02/18/18 21:38 [From Midrin] AL/THROAT isometheptene [From Midrin] Allergy Severe S-SWELLS-OR Verified 02/18/18 21:38 AL/THROAT prochlorperazine Allergy Severe SEIZURES Verified 02/18/18 21:38 [From Compazine] acetaminophen [From MIDRIN] Allergy Intermediate Verified 02/18/18 21:38 adhesive tape Allergy Intermediate I-RASH Verified 02/18/18 21:38 aspirin Allergy Intermediate "COLD Verified 02/18/18 21:38 SWEATS", N/V cyclobenzaprine Allergy Unknown Verified 02/18/18 21:38 [From FLEXERIL] duloxetine [DULOXETINE] Allergy Unknown Verified 02/18/18 21:38 Iodinated Contrast Media - Allergy Unknown Verified 02/18/18 21:38 Oral and [IODINATED CONTRAST MEDIA - ORAL AND] Sulfa (Sulfonamide Allergy Unknown "CONTRAINDICATED Verified 02/18/18 21:38 Antibiotics) WITH ASTHMA" trimethoprim [TRIMETHOPRIM] Allergy Unknown Verified 02/18/18 21:38 Beta-Blockers AdvReac Severe "MAKES Verified 02/18/18 21:38 (Beta-Adrenergic Bloc ASTHMA WORSE" caffeine [From Cafergot] AdvReac Mild NA-NAUSEA Verified 02/18/18 21:38 ergotamine [From Cafergot] AdvReac Mild NA-NAUSEA Verified 02/18/18 21:38 pregabalin [From Lyrica] AdvReac Mild "TOO Verified 02/18/18 21:38 SEDATED" NSAIDS (Non-Steroidal AdvReac Verified 02/18/18 21:38 Anti-Inflamma [facility] History I have reviewed the patient's past medical history: Yes Medical History: Reports:: Aneurysm, Asthma, Atrial Fibrillation, Cancer, Diabetes Mellitus Type 2, Hypertension, Internal Pacemaker, Lung Disease, Renal Disease, Transient Ischemic Attacks (TIA), Tuberculosis Denies:: Diabetes Mellitus Type 1, MRSA, Seizures Other Medical History: Reports: Arthritis, Cataracts, Fibromyalgia Comment: Heart Problems, SOA Laterality Cases: Right: Arthroscopy Shoulder Other Surgeries: Yes: Cancer Surgery, Colonoscopy, Colon Resection, Hysterectomy -Total, Pacemaker Amputation: No Fractures: No Comment: Ablation in heart, Back surgery x3, Shoulder surgery, Small bowel blockage x4, Renal surgery - Social History Smoking Status: Never smoker Alcohol Intake: never Substance Use Type: denies use Occupational Status: retired Housing: house Household Members: spouse - Psychiatric History Expresses thoughts of harming self/others: None Suicide Plan Description: No Plan Family Hx:: Cancer, Hyperlipidemia, Diabetes, Heart Attack, Hypertension, Kidney Disease, Stroke, Thyroid Disorder, Tuberculosis, Asthma Comment: Radiation tx, Lung Disease, Emphysema, SOA ROS Obtained: Yes All systems reviewed & no additional complaints - Constitutional Constitutional: Denies fever(s) - Cardiovascular Cardiovascular: Denies chest pain - Respiratory Respiratory: No cough, No dyspnea - Gastrointestinal Gastrointestingal: Denies: abdominal pain, diarrhea, vomiting - Genitourinary Female Genitourinary: Denies dysuria - Musculoskeletal Musculoskeletal: Reports back pain, Reports other (right leg pain) Physical Exam - General General appearance: alert, in no apparent distress - Head Head exam: atraumatic, normocephalic, normal inspection - Eye Eye exam: Present: normal appearance, PERRL, EOMI - ENT ENT exam: Present: normal exam, normal oropharynx, mucous membranes moist, TM's normal bilaterally, normal external ear exam - Neck Neck exam: Present: normal inspection, full ROM, trachea midline. Absent: meningismus, lymphadenopathy - Chest Chest inspection: Present: normal inspection, symmetric chest wall rise. Absent : tenderness - Respiratory Respiratory exam: Present: normal lung sounds bilaterally. Absent: respiratory distress - Cardiovascular Cardiovascular exam: Present: regular rate, normal rhythm. Absent: JVD - Abdominal Exam Abdominal exam: Present: soft, normal bowel sounds. Absent: distention, tenderness, guarding - Extremities Exam Extremities exam: Present: normal inspection, full ROM, normal capillary refill. Absent: calf tenderness - Neurological Exam Neurological exam: Present: alert, oriented X3 - Psychiatric Psychiatric exam: Present: normal affect, normal mood - Skin Skin exam: Present: warm, dry, intact, normal color
[2018-02-18 22:02] LABS: Basophils % 0.1 % (0.1-2.0); Eosinophils # 0.1 K/mm3 (0.0-0.4); Eosinophils % 0.7 % (0.1-12.0); Hematocrit 44.8 % (37.0-47.0); Hemoglobin 13.9 g/dL (12.2-16.2); Lymphocytes # 3.6 K/mm3 (0.7-4.5); Lymphocytes % 25.6 K/mm3 (10-50); Mean Corpuscular HGB Conc 30.9 g/dL (31.8-35.4); Mean Corpuscular Hemoglobin 30.9 pg (27.0-31.2); Mean Platelet Volume 9.4 fl (7.4-10.4); Monocytes # 0.6 K/mm3 (0.1-1.0); Monocytes % 4.3 % (1.7-9.3); Neutrophils # 9.8 K/mm3 (1.8-7.8); Neutrophils % 69.3 % (37.0-80.0); Platelet Count 231 K/mm3 (142-424); Red Blood Count 4.48 M/mm3 (4.20-5.40); Red Cell Distribution Width 13.4 % (11.5-17.5); White Blood Count 14.1 K/mm3 (4.8-10.8)
[2018-02-18 22:12] LABS: Alanine Aminotransferase 18 U/L (12-78); Albumin Level 3.4 gm/dL (3.4-5.0); Albumin/Globulin Ratio 0.9 (1.1-1.8); Alkaline Phosphatase 175 U/L (46-116); Anion Gap 13.4 mEq/L (5-15); Aspartate Amino Transferase 13 U/L (15-37); Bilirubin,Total 0.2 mg/dL (0.2-1.0); Blood Urea Nitrogen 56 mg/dL (7-18); Calcium 9.3 mg/dL (8.5-10.1); Carbon Dioxide 25 mmol/L (21.0-32.0); Chloride 97 mmol/L (98-107); Globulin 3.9 gm/dl (1.3-3.2); Potassium 4.4 mmoL/L (3.5-5.1); Sodium 131 mmol/L (136-145); Total Protein,Serum 7.3 gm/dL (6.4-8.2)
[2018-02-18 22:14] LABS: Glucose 469 mg/dL (74-106)
[2018-02-18 23:36] LABS: Appearance,Urine CLEAR (Clear); Bilirubin,Urine Negative (Negative); Blood, Urine 2+ (Negative); Color,Urine YELLOW (Yellow); Glucose,Urine (UA) 3+ (Negative); Ketones,Urine Negative (Negative); Leukocyte Esterase,Urine Negative (Negative); PH,Urine 5.5 (5.0-8.5); Protein,Urine Negative (Negative); Specific Gravity, Urine 1.015 (1.005-1.030); Urobilinogen,Urine 0.2 EU/dl (0.2)
[2018-02-18 23:37] LABS: Microscopic, Urine URINE MICROSCOPIC (MICROSCOPIC)
[2018-02-18 23:39] LABS: RBC,Urine 20-50 #/hpf (0-3); Yeast,Urine 4+ /lpf
[2018-02-19 03:59] LABS: Basophils % 0.3 % (0.1-2.0); Eosinophils # 0.2 K/mm3 (0.0-0.4); Eosinophils % 1.2 % (0.1-12.0); Hematocrit 36.4 % (37.0-47.0); Lymphocytes % 38.8 K/mm3 (10-50); Mean Corpuscular HGB Conc 32.4 g/dL (31.8-35.4); Mean Corpuscular Hemoglobin 31.3 pg (27.0-31.2); Mean Corpuscular Volume 96.4 fl (81-99); Mean Platelet Volume 8.6 fl (7.4-10.4); Monocytes # 0.6 K/mm3 (0.1-1.0); Monocytes % 4.1 % (1.7-9.3); Neutrophils # 8.7 K/mm3 (1.8-7.8); Neutrophils % 55.6 % (37.0-80.0); Platelet Count 179 K/mm3 (142-424); Red Blood Count 3.78 M/mm3 (4.20-5.40); Red Cell Distribution Width 13.5 % (11.5-17.5); White Blood Count 15.6 K/mm3 (4.8-10.8)
[2018-02-19 04:05] LABS: Hemoglobin 11.8 g/dL (12.2-16.2)
[2018-02-19 04:06] LABS: Anion Gap 9.6 mEq/L (5-15); Potassium 3.6 mmoL/L (3.5-5.1)
[2018-02-19 04:27] LABS: Eosinophils % 1 % (0-3); Lymphocytes % 20 % (10-50); Macrocytosis 1+; Monocytes % 1 % (2-9); Neutrophils % 72 % (42-76); Polychromasia 1+; Total Cells Counted 100
--- NOTE | 2018-02-19 07:49 | H&P/Discharge Summary ---
General - General Admission date:: 02/19/18 Discharge date: 02/19/18 *Admission Date: 02/18/18 *Chief complaint: Weakness *History of present illness: 72-year-old white female with long medical history of diabetes, hypertension, chronic pain syndrome on oral and patch opioids as well as benzodiazepines, who has had multiple back procedures and most recently had an SI joint injection. Has been feeling very weak throughout the morning of admission, interestingly had put an extra fentanyl patch on of 12.5 mcg on top of her 50 mcg patch for the past couple of days, ostensibly at the request of her pain clinic. She felt very weak and unsteady yesterday, came to the emergency department found to be orthostatic and have acute kidney injury with creatinine of 2.2. Admitted overnight for fluids and observation and control of her blood sugar which were in the 400s in the ER. [facility] History I have reviewed the patient's past medical history: Yes Medical History: Reports:: Aneurysm, Asthma, Atrial Fibrillation, Cancer (eye and ear), Diabetes Mellitus Type 2, Hypertension, Internal Pacemaker, Lung Disease, MRSA, Renal Disease, Transient Ischemic Attacks (TIA), Tuberculosis Denies:: Diabetes Mellitus Type 1, Seizures Other Medical History: Reports: Arthritis, Cataracts, Fibromyalgia Laterality Cases: Right: Arthroscopy Shoulder Other Surgeries: Yes: Cancer Surgery, Cardiac Catheterization, Colonoscopy, Colon Resection, Hysterectomy-Total, Pacemaker Amputation: No Fractures: No - *Social History Educational Level: Completed College Smoking Status: Never smoker Alcohol Intake: never Substance Use Type: denies use Occupational Status: retired Housing: house Household Members: spouse - Psychiatric History Expresses thoughts of harming self/others: None Suicide Plan Description: No Plan *Family Hx:: Cancer, Hyperlipidemia, Diabetes, Heart Attack, Hypertension, Kidney Disease, Stroke, Thyroid Disorder, Tuberculosis, Asthma Review of Systems - Review of Systems Review of systems:: pertinent systems reviewed and negative unless documented below Essentially negative except for weakness. No cardiac symptoms, no palpitations , no chest pain, no edema. No change in her perception of her urine output. Exam Vital signs and Labs for Last 24 Hours: Temp Pulse Resp BP Pulse Ox 97.9 F 74 16 125/44 95 02/19/18 04:00 02/19/18 04:00 02/19/18 04:00 02/19/18 04:00 02/19/18 04:00 Laboratory Results - last 24 hr 02/18/18 21:40: WBC 14.1 H, RBC 4.48, Hgb 13.9, Hct 44.8, MCV 100.0 H, MCH 30.9 , MCHC 30.9 L, RDW 13.4, Plt Count 231, MPV 9.4, Neut % (Auto) 69.3, Lymph % ( Auto) 25.6, Bacon % (Auto) 4.3, Eos % (Auto) 0.7, Baso % (Auto) 0.1, Neut # (Auto ) 9.8 H, Lymph # (Auto) 3.6, Bacon # (Auto) 0.6, Eos # (Auto) 0.1, Baso # (Auto) 0.0 02/18/18 21:40: Sodium 131 L, Potassium 4.4, Chloride 97 L, Carbon Dioxide 25, Anion Gap 13.4, BUN 56 H, Creatinine 2.24 H, Estimated Creat Clear 29, Estimated GFR 22 L, Est GFR ( Amer) 26 L, Glucose 469 H*, Calcium 9.3, Total Bilirubin 0.2, AST 13 L, ALT 18, Alkaline Phosphatase 175 H, Troponin I < 0.02, Total Protein 7.3, Albumin 3.4, Globulin 3.9 H, Albumin/Globulin Ratio 0.9 L 02/18/18 22:15: Lactic Acid 2.5 H 02/18/18 23:30: Urine Color Yellow, Urine Appearance Clear, Urine pH 5.5, Ur Specific [place] 1.015, Urine Protein Negative, Urine Glucose (UA) 3+, Urine Ketones Negative, Urine Blood 2+, Urine Nitrate Negative, Urine Bilirubin Negative, Urine Urobilinogen 0.2, Ur Leukocyte Esterase Negative, Urine RBC 20- 50, Urine Yeast 4+ 02/18/18 23:51: POC Glucose 497 H* 02/19/18 02:20: Lactic Acid Fup @ 4Hr 1.7 02/19/18 03:55: WBC 15.6 H, RBC 3.78 L, Hgb 11.8 L D, Hct 36.4 L, MCV 96.4, MCH 31.3 H, MCHC 32.4, RDW 13.5, Plt Count 179, MPV 8.6, Neut % (Auto) 55.6, Lymph % (Auto) 38.8, Bacon % (Auto) 4.1, Eos % (Auto) 1.2, Baso % (Auto) 0.3, Neut # ( Auto) 8.7 H, Lymph # (Auto) 6.0 H, Bacon # (Auto) 0.6, Eos # (Auto) 0.2, Baso # ( Auto) 0.0, Total Counted 100, Neutrophils % (Manual) 72, Band Neutrophils % 6.0 , Lymphocytes % (Manual) 20, Monocytes % (Manual) 1 L, Eosinophils % (Manual) 1 , Platelet Estimate Normal, Polychromasia 1+, Macrocytosis 1+ 02/19/18 03:55: Sodium 139, Potassium 3.6, Chloride 107, Carbon Dioxide 26, Anion Gap 9.6, BUN 53 H, Creatinine 1.46 H D, Estimated Creat Clear 45, Estimated GFR 35 L, Est GFR ( Amer) 43 L D, Glucose 60 L D 02/19/18 04:16: POC Glucose 60 L 02/19/18 06:15: POC Glucose 114 H I & O for Last 24 hours: Intake & Output 02/16/18 02/17/18 02/18/18 02/19/18 11:59 11:59 11:59 11:59 Intake Total 1240 / 1240 Balance 1240 / 1240 Weight 179 lb Narrative: This morning patient is awake, alert. States she feels much better. Heart rate regular. Lungs are clear, abdomen soft, lots of pain behaviors with movement of her legs, but normal strength in both legs. Oropharynx is clear, well-hydrated. Eyes are without jaundice, no skin jaundice. Hospital Course Hospital Course: She was admitted, extra fentanyl patch was held, her lisinopril was held. She was gently hydrated overnight. This morning creatinine is improved to 1.4. Her blood pressure has normalized and her glucoses are normalized. She will be discharged home. She will be instructed to hold her extra fentanyl patch, take only her scheduled pain medications. She was also instructed to hold lisinopril until she sees her regular physician, Dr. Medel in the office. Results Labs on day of discharge: Labs from last 24 hours 02/19/18 02/19/18 02/19/18 06:15 04:16 03:55 WBC RBC Hgb Hct MCV MCH MCHC RDW Plt Count MPV Neut % (Auto) Lymph % (Auto) Bacon % (Auto) Eos % (Auto) Baso % (Auto) Neut # (Auto) Lymph # (Auto) Bacon # (Auto) Eos # (Auto) Baso # (Auto) Total Counted Neutrophils % (Manual) Band Neutrophils % Lymphocytes % (Manual) Monocytes % (Manual) Eosinophils % (Manual) Platelet Estimate Polychromasia Macrocytosis Sodium 139 Potassium 3.6 Chloride 107 Carbon Dioxide 26 Anion Gap 9.6 BUN 53 H Creatinine 1.46 H D Estimated Creat Clear 45 Estimated GFR 35 L Est GFR ( Amer) 43 L D Glucose 60 L D POC Glucose 114 H 60 L Lactic Acid Lactic Acid Fup @ 4Hr Calcium Total Bilirubin AST ALT Alkaline Phosphatase Troponin I Total Protein Albumin Globulin Albumin/Globulin Ratio Urine Color Urine Appearance Urine pH Ur Specific [place] Urine Protein Urine Glucose (UA) Urine Ketones Urine Blood Urine Nitrate Urine Bilirubin Urine Urobilinogen Ur Leukocyte Esterase Urine RBC Urine Yeast 02/19/18 02/19/18 02/18/18 03:55 02:20 23:51 WBC 15.6 H RBC 3.78 L Hgb 11.8 L D Hct 36.4 L MCV 96.4 MCH 31.3 H MCHC 32.4 RDW 13.5 Plt Count 179 MPV 8.6 Neut % (Auto) 55.6 Lymph % (Auto) 38.8 Bacon % (Auto) 4.1 Eos % (Auto) 1.2 Baso % (Auto) 0.3 Neut # (Auto) 8.7 H Lymph # (Auto) 6.0 H Bacon # (Auto) 0.6 Eos # (Auto) 0.2 Baso # (Auto) 0.0 Total Counted 100 Neutrophils % (Manual) 72 Band Neutrophils % 6.0 Lymphocytes % (Manual) 20 Monocytes % (Manual) 1 L Eosinophils % (Manual) 1 Platelet Estimate Normal Polychromasia 1+ Macrocytosis 1+ Sodium Potassium Chloride Carbon Dioxide Anion Gap BUN Creatinine Estimated Creat Clear Estimated GFR Est GFR ( Amer) Glucose POC Glucose 497 H* Lactic Acid Lactic Acid Fup @ 4Hr 1.7 Calcium Total Bilirubin AST ALT Alkaline Phosphatase Troponin I Total Protein Albumin Globulin Albumin/Globulin Ratio Urine Color Urine Appearance Urine pH Ur Specific [place] Urine Protein Urine Glucose (UA) Urine Ketones Urine Blood Urine Nitrate Urine Bilirubin Urine Urobilinogen Ur Leukocyte Esterase Urine RBC Urine Yeast 02/18/18 02/18/18 02/18/18 23:30 22:15 21:40 WBC RBC Hgb Hct MCV MCH MCHC RDW Plt Count MPV Neut % (Auto) Lymph % (Auto) Bacon % (Auto) Eos % (Auto) Baso % (Auto) Neut # (Auto) Lymph # (Auto) Bacon # (Auto) Eos # (Auto) Baso # (Auto) Total Counted Neutrophils % (Manual) Band Neutrophils % Lymphocytes % (Manual) Monocytes % (Manual) Eosinophils % (Manual) Platelet Estimate Polychromasia Macrocytosis Sodium 131 L Potassium 4.4 Chloride 97 L Carbon Dioxide 25 Anion Gap 13.4 BUN 56 H Creatinine 2.24 H Estimated Creat Clear 29 Estimated GFR 22 L Est GFR ( Amer) 26 L Glucose 469 H* POC Glucose Lactic Acid 2.5 H Lactic Acid Fup @ 4Hr Calcium 9.3 Total Bilirubin 0.2 AST 13 L ALT 18 Alkaline Phosphatase 175 H Troponin I < 0.02 Total Protein 7.3 Albumin 3.4 Globulin 3.9 H Albumin/Globulin Ratio 0.9 L Urine Color Yellow Urine Appearance Clear Urine pH 5.5 Ur Specific [place] 1.015 Urine Protein Negative Urine Glucose (UA) 3+ Urine Ketones Negative Urine Blood 2+ Urine Nitrate Negative Urine Bilirubin Negative Urine Urobilinogen 0.2 Ur Leukocyte Esterase Negative Urine RBC 20-50 Urine Yeast 4+ 02/18/18 21:40 WBC 14.1 H RBC 4.48 Hgb 13.9 Hct 44.8 MCV 100.0 H MCH 30.9 MCHC 30.9 L RDW 13.4 Plt Count 231 MPV 9.4 Neut % (Auto) 69.3 Lymph % (Auto) 25.6 Bacon % (Auto) 4.3 Eos % (Auto) 0.7 Baso % (Auto) 0.1 Neut # (Auto) 9.8 H Lymph # (Auto) 3.6 Bacon # (Auto) 0.6 Eos # (Auto) 0.1 Baso # (Auto) 0.0 Total Counted Neutrophils % (Manual) Band Neutrophils % Lymphocytes % (Manual) Monocytes % (Manual) Eosinophils % (Manual) Platelet Estimate Polychromasia Macrocytosis Sodium Potassium Chloride Carbon Dioxide Anion Gap BUN Creatinine Estimated Creat Clear Estimated GFR Est GFR ( Amer) Glucose POC Glucose Lactic Acid Lactic Acid Fup @ 4Hr Calcium Total Bilirubin AST ALT Alkaline Phosphatase Troponin I Total Protein Albumin Globulin Albumin/Globulin Ratio Urine Color Urine Appearance Urine pH Ur Specific [place] Urine Protein Urine Glucose (UA) Urine Ketones Urine Blood Urine Nitrate Urine Bilirubin Urine Urobilinogen Ur Leukocyte Esterase Urine RBC Urine Yeast DS: Diagnosis - Discharge Diagnosis (1) Acute kidney injury Status: Acute (2) Hypotension Status: Acute (3) Chronic pain disorder Status: Acute Discharge Medications Discharge Medications: Home Medications Medication Instructions Recorded Confirmed Type ALPRAZolam [Xanax 0.5mg tab] 0.5 mg PO Q4-6H PRN 01/06/18 02/19/18 History Apixaban [Eliquis] 5 mg PO BID 01/06/18 02/19/18 History Atorvastatin Calcium [Atorvastatin 40 mg PO HS 01/06/18 02/19/18 History 40mg Tab] Bisoprolol Fumarate [Zebeta] 10 mg PO DAILY 01/06/18 02/19/18 History Furosemide [Furosemide 40MG tAB] 40 mg PO DAILY 01/06/18 02/19/18 History Gabapentin [Gabapentin 800mg Tab] 800 mg PO QID 01/06/18 02/19/18 History Lisinopril [Lisinopril 10mg Tab] 10 mg PO DAILY 01/06/18 02/19/18 History Melatonin 10 mg PO HS 01/06/18 02/19/18 History Oxycodone HCl [Oxycodone (IR) 10mg 10 mg PO Q6 01/06/18 02/19/18 History Tab] Pantoprazole Sodium [Protonix 40mg 40 mg PO DAILY 01/06/18 02/19/18 History (granule) packet] Polyethylene Glycol 3350 [Miralax 17 gm PO DAILY 01/06/18 02/19/18 History Powder] Potassium Chloride [Klor-con 20 20 meq PO BID 01/06/18 02/19/18 History mEq tablet] acetaminophen 325 mg capsule 650 mg PO BID 02/07/18 02/19/18 History fentanyl 50 mcg/hr transdermal 1 patch TRANSDERMA Q72H 02/07/18 02/19/18 History patch insulin aspart U-100 100 unit/mL 30 unit SUB-Q DIRECTED 02/07/18 02/19/18 History subcutaneous solution insulin glargine (U-100) 100 35 unit SUB-Q QHS 02/07/18 02/19/18 History unit/mL subcutaneous solution Doxycycline Hyclate 100 mg PO DAILY 02/19/18 02/19/18 History Disposition Disposition: Home, Self-Care
[2018-02-19 07:50] VITALS: BP 108/61
== END 2018-02-19 08:10 | disposition home or self-care (01) ==
LOC: 2ND 21:23 → ER 21:23 → 2ND 02-19 01:12
PROVIDERS: ADMIT Internal Medicine Adolescent Medicine; ATTEND Internal Medicine Adolescent Medicine

== ENCOUNTER → 2018-02-20 13:45 | Outpatient (CLI) | payer MEDICARE, SELFPAY ==
--- NOTE | 2018-02-20 13:50 | CT_ITS ---
CT lumbar spine wo con INDICATION: Worsening back pain, previous fall with injury and pain ITS.REASON: WORSENING BACK PAIN ORDERING PHYSICIAN: Shvia Ritchie MD PATIENT AGE: 72 years COMPARISON: 07/14/2016 TECHNIQUE: Axial images are obtained without contrast. Sagittal and coronal reformatted images are reviewed as well. All CT scans at the facility use one or more dose reduction, viz: automated exposure control; ma/kV adjustment per patient size (including targeted exams where dose is matched to indication; i.e. head); or iterative reconstruction technique. FINDINGS: There is normal alignment. There are bridging lateral osteophytes in the lower thoracic spine. L2-L3: Degenerative disc disease with mild concentric bulging disc with mild bilateral foraminal narrowing. L3-L4: Postsurgical changes are present at L3 and L4 with interpedicular screws and a disc spacer device at L3 and L4. Facet hypertrophic changes are present at L3-L4 with mild bilateral foraminal narrowing. L4-L5: There is a disc spacer device also at L4-L5. Laminotomy defect noted at L4-L5 as before centrally and on the right. Prominent facet hypertrophic changes are present with moderate bilateral foraminal narrowing. L5-S1: Bulging disc with moderate facet hypertrophic change with mild bilateral foraminal narrowing. No acute fracture or dislocation. Punctate bilateral renal calculi noted as before. IMPRESSION: Postsurgical change with lumbar spondylosis as described above with foraminal narrowing. Please see above for detailed description at each level. Overall no significant change from the previous study with no acute fracture or dislocation. No evidence of surgical hardware malfunction.
== END ==
PROVIDERS: Family Provider Internal Medicine; PCP Internal Medicine; Visit Provider Anesthesiology
DX: M54.5 Low back pain (principal)
CPT/HCPCS: 72131

== ENCOUNTER → 2018-03-06 13:00 | Outpatient (POV) | payer MEDICARE, SELFPAY ==
[2018-03-06 13:41] VITALS: BP 144/87; PULSE 78; RESP 18; O2SAT 98; BMI 33.8
--- NOTE | 2018-03-06 14:35 | [facility].PAINSOAP ---
[facility] Pain Management SOAP Note Subjective:: Patient is a pleasant 72-year-old white female who presents today for follow-up. Patient is tearful today stating that her pain is unbearable. Patient states that her medication is not working for her. Patient is currently on fentanyl 50 mcg transdermal patch every 72 hours along with oxycodone 10 mg 1 p.o. 6 times a day along with alprazolam 0.5 mg 1 4 times a day. Patient had a long discussion about hyper analgesia at this point I do not believe extra pain medication will be beneficial for her. Patient's current morphine equivalent is 210. Patient had recent CT which shows no no acute changes since her last imaging. Patient has been seen by Dr. Padilla in the past. I would be beneficial for her to return to him. Patient states that coincidentally this happened after an injection from us. Patient is uninterested in a more injections. I believe that this is appropriate. Patient does present today with a back brace on. She states it does not help much. She rates her pain a 9 out of 10 mostly in her low back radiating into her legs. Patient is unable to take anti-inflammatories. ROS General: no recent weight change, no fever, no sleep disturbances Respiratory: no cough, no shortness of air, no recurring pulmonary infections Cardiovascular/Peripheral Vascular: No chest pain, No palpitations, no edema, no shortness of breath. Gastrointestinal: no incontinence, normal bowel movements reported Genitourinary: no incontinence Musculoskeletal: Back pain, right leg pain Psychiatric: normal mood/ affect Neurological: [denies weakness in extremities], [denies balance issues] Objective:: Physical Exam General: Alert and oriented x3, no acute distress, pleasant and cooperative, [on room air] Lungs: Resps E/U, Symmetrical chest expansion, Eyes: PERRL Musculoskeletal: Flexion and extension of lumbar spine somewhat guarded secondary to pain, deep tendon reflexes normal, strength in upper and lower extremities [5/5], [abnormal gait noted] Neurological: speech clear, internal carver equal, no gross sensory deficits Assessment:: Postlaminectomy syndrome lumbar spine, sacroiliitis, degenerative disc disease Plan:: We will send this patient to Dr. Padilla for consultation. I encouraged the patient to take her radiography report with her and the disc. At this time I do not believe that there is much we can offer her. Patient is being medically managed by her primary care physician. This note was dictated using voice recognition software and may contain errors or omissions
--- NOTE | 2018-03-06 14:39 | P.CONS_ITS ---
[facility] Pain Management SOAP Note Subjective:: Patient is a pleasant 72-year-old white female who presents today for follow- up. Patient is tearful today stating that her pain is unbearable. Patient states that her medication is not working for her. Patient is currently on fentanyl 50 mcg transdermal patch every 72 hours along with oxycodone 10 mg 1 p.o. 6 times a day along with alprazolam 0.5 mg 1 4 times a day. Patient had a long discussion about hyper analgesia at this point I do not believe extra pain medication will be beneficial for her. Patient's current morphine equivalent is 210. Patient had recent CT which shows no no acute changes since her last imaging. Patient has been seen by Dr. Padilla in the past. I would be beneficial for her to return to him. Patient states that coincidentally this happened after an injection from us. Patient is uninterested in a more injections. I believe that this is appropriate. Patient does present today with a back brace on. She states it does not help much. She rates her pain a 9 out of 10 mostly in her low back radiating into her legs. Patient is unable to take anti- inflammatories. ROS General: no recent weight change, no fever, no sleep disturbances Respiratory: no cough, no shortness of air, no recurring pulmonary infections Cardiovascular/Peripheral Vascular: No chest pain, No palpitations, no edema, no shortness of breath. Gastrointestinal: no incontinence, normal bowel movements reported Genitourinary: no incontinence Musculoskeletal: Back pain, right leg pain Psychiatric: normal mood/ affect Neurological: [denies weakness in extremities], [denies balance issues] Objective:: Physical Exam General: Alert and oriented x3, no acute distress, pleasant and cooperative, [ on room air] Lungs: Resps E/U, Symmetrical chest expansion, Eyes: PERRL Musculoskeletal: Flexion and extension of lumbar spine somewhat guarded secondary to pain, deep tendon reflexes normal, strength in upper and lower extremities [5/5], [abnormal gait noted] Neurological: speech clear, patient services manager equal, no gross sensory deficits Assessment:: Postlaminectomy syndrome lumbar spine, sacroiliitis, degenerative disc disease Plan:: We will send this patient to Dr. Padilla for consultation. I encouraged the patient to take her radiography report with her and the disc. At this time I do not believe that there is much we can offer her. Patient is being medically managed by her primary care physician. This note was dictated using voice recognition software and may contain errors or omissions
== END ==
PROVIDERS: Family Provider Internal Medicine; PCP Internal Medicine; Visit Provider Clinical Nurse Specialist Family Health
DX: M51.36 Other intervertebral disc degeneration, lumbar region (principal)
CPT/HCPCS: 99212

== ENCOUNTER 2018-05-04 22:53 | Observation (INO) ==
[2018-05-04 23:32] LABS: Microscopic, Urine URINE MICROSCOPIC (MICROSCOPIC)
[2018-05-04 23:34] LABS: Appearance,Urine CLEAR (Clear); Bilirubin,Urine Negative (Negative); Blood, Urine TRACE-I (Negative); Color,Urine YELLOW (Yellow); Glucose,Urine (UA) 2+ (Negative); Ketones,Urine Negative (Negative); Leukocyte Esterase,Urine 1+ (Negative); PH,Urine 5.5 (5.0-8.5); Protein,Urine Negative (Negative); Specific Gravity, Urine 1.015 (1.005-1.030); Urobilinogen,Urine 0.2 EU/dl (0.2)
[2018-05-04 23:41] LABS: Bacteria,Urine 1+ /lpf; Mucus,Urine 1+ /lpf; WBC,Urine 20-50 #/hpf (0-3)
[2018-05-04 23:43] LABS: Amphetamine/Metha Screen,Urine Negative ng/mL (<1000); Barbiturates Screen,Urine Negative ng/mL (<200); Basophils % 0.3 % (0.1-2.0); Benzodiazepines Screen,Urine Positive ng/mL (<200); Cannabinoid Screen,Urine Negative ng/mL (<50); Cocaine Screen,Urine Negative ng/mL (<300); Eosinophils # 0.3 K/mm3 (0.0-0.4); Eosinophils % 2.9 % (0.1-12.0); Hematocrit 31.2 % (37.0-47.0); Hemoglobin 9.9 g/dL (12.2-16.2); Lymphocytes % 35.6 K/mm3 (10-50); Mean Corpuscular HGB Conc 31.6 g/dL (31.8-35.4); Mean Corpuscular Hemoglobin 29.6 pg (27.0-31.2); Mean Corpuscular Volume 93.6 fl (81-99); Mean Platelet Volume 7.9 fl (7.4-10.4); Methadone Screen,Urine Negative ng/mL (<300); Monocytes # 0.4 K/mm3 (0.1-1.0); Monocytes % 4.5 % (1.7-9.3); Neutrophils # 4.8 K/mm3 (1.8-7.8); Neutrophils % 56.7 % (37.0-80.0); Opiate Screen,Urine Positive ng/mL (<300); Phencyclidine Screen,Urine Negative ng/mL (<25); Platelet Count 242 K/mm3 (142-424); Red Blood Count 3.34 M/mm3 (4.20-5.40); White Blood Count 8.4 K/mm3 (4.8-10.8)
[2018-05-05] LABS: Alanine Aminotransferase 19 U/L (12-78); Albumin Level 3.3 gm/dL (3.4-5.0); Albumin/Globulin Ratio 0.9 (1.1-1.8); Alkaline Phosphatase 177 U/L (46-116); Anion Gap 8.2 mEq/L (5-15); Aspartate Amino Transferase 12 U/L (15-37); Bilirubin,Total 0.3 mg/dL (0.2-1.0); Blood Urea Nitrogen 23 mg/dL (7-18); Calcium 8.6 mg/dL (8.5-10.1); Carbon Dioxide 27 mmol/L (21.0-32.0); Chloride 106 mmol/L (98-107); Creatine Kinase 149 U/L (26-192); Globulin 3.8 gm/dl (1.3-3.2); Glucose 274 mg/dL (74-106); Potassium 4.2 mmoL/L (3.5-5.1); Sodium 137 mmol/L (136-145); Total Protein,Serum 7.1 gm/dL (6.4-8.2)
--- NOTE | 2018-05-05 01:35 | Emergency Department Note ---
ED Disposition Clinical Impression: UTI (urinary tract infection) Qualifiers: Urinary tract infection type: acute cystitis Hematuria presence: without hematuria Qualified Code(s): N30.00 - Acute cystitis without hematuria Altered mental status Qualifiers: Altered mental status type: unspecified Qualified Code(s): R41.82 - Altered mental status, unspecified Disposition: Admitted as Observation Condition on Discharge: Good Time of Disposition: 01:34 - Critical Care Critical Care Time: No Attestation: On 05/04/18, the high probability of a clinically significant, sudden or life threatening deterioration of the following system(s) required my full and direct attention, intervention and personal management. The time I documented below is in addition to time spent performing reported procedures but includes the following listed in this critical care notation. Medical Decision Making - Medical Records Medical records reviewed: Yes: I reviewed the patient's medical records. - Abraham Inquiry Pt receiving controlled substance: No Vital Signs: 05/04/18 22:58 05/05/18 00:12 05/05/18 01:12 Temperature 99.8 F H Temperature Source Oral Pulse Rate Pulse Rate [Right Radial] 92 H 88 75 Respiratory Rate 20 14 14 Blood Pressure Blood Pressure [Right Arm] 131/80 138/74 143/87 Blood Pressure Mean [Right Arm] 97 95 105 Blood Pressure Source [Right Arm] Automatic Cuff Automatic Cuff Blood Pressure Position [Right Arm] Supine Supine 02 Sat by Pulse Oximetry 95 93 L 97 Oxygen Delivery Method Room Air Room Air 05/05/18 01:55 Temperature 98.9 F Temperature Source Oral Pulse Rate 91 H Pulse Rate [Right Radial] Respiratory Rate 16 Blood Pressure 112/62 Blood Pressure [Right Arm] Blood Pressure Mean [Right Arm] Blood Pressure Source [Right Arm] Blood Pressure Position [Right Arm] 02 Sat by Pulse Oximetry Oxygen Delivery Method Room Air - Lab Data Lab results reviewed: Yes: I reviewed the patient's lab results. Lab Results 05/04/18 23:20: WBC 8.4, RBC 3.34 L, Hgb 9.9 L, Hct 31.2 L, MCV 93.6, MCH 29.6, MCHC 31.6 L, RDW 15.0, Plt Count 242, MPV 7.9, Neut % (Auto) 56.7, Lymph % (Auto ) 35.6, [place] % (Auto) 4.5, Eos % (Auto) 2.9, Baso % (Auto) 0.3, Neut # (Auto) 4.8, Lymph # (Auto) 3.0, [place] # (Auto) 0.4, Eos # (Auto) 0.3, Baso # (Auto) 0.0 05/04/18 23:20: Sodium 137, Potassium 4.2, Chloride 106, Carbon Dioxide 27, Anion Gap 8.2, BUN 23 H, Creatinine 1.67 H, Estimated Creat Clear 39, Estimated GFR 30 L, Est GFR ( Amer) 37 L, Glucose 274 H, Calcium 8.6, Total Bilirubin 0.3, AST 12 L, ALT 19, Alkaline Phosphatase 177 H, Total Creatine Kinase 149, CK-MB (CK-2) 2.0, CK-MB (CK-2) Rel Index 1.3, Troponin I < 0.02, Total Protein 7.1, Albumin 3.3 L, Globulin 3.8 H, Albumin/Globulin Ratio 0.9 L 05/04/18 23:20: Urine Color Yellow, Urine Appearance Clear, Urine pH 5.5, Ur Specific [place] 1.015, Urine Protein Negative, Urine Glucose (UA) 2+, Urine Ketones Negative, Urine Blood Trace-i, Urine Nitrate Negative, Urine Bilirubin Negative, Urine Urobilinogen 0.2, Ur Leukocyte Esterase 1+ A, Urine RBC 5-10, Urine WBC 20-50, Urine Bacteria 1+, Fine Granular Casts 3-5, Urine Mucus 1+ 05/04/18 23:20: Lactate 1.2 05/04/18 23:20: Urine Opiates Screen Positive H, Urine Methadone Screen Negative , Ur Barbituates Screen Negative, Ur Phencyclidine Scrn Negative, Ur Amphetamines Screen Negative, U Benzodiazepines Scrn Positive H, Urine Cocaine Screen Negative, U Marijuana (THC) Screen Negative Result diagrams: 05/04/18 23:20 05/04/18 23:20 Orders (Tests/Meds): ED MEDICATIONS Generic Name Dose Route Start Last Admin Trade Name Freq PRN Reason Stop Dose Admin Atorvastatin Calcium 40 mg 05/05/18 21:00 Lipitor 40mg Tablet PO 06/04/18 20:59 HS DENISE Furosemide 40 mg 05/05/18 09:00 Lasix 40mg Tablet PO 06/04/18 08:59 DAILY DENISE Ceftriaxone Sodium 1 gm/ 50 mls @ 100 mls/hr 05/06/18 00:30 Sodium Chloride IV 05/19/18 00:29 Q24H DENISE Protocol Sodium Chloride 1,000 mls @ 75 mls/hr 05/05/18 02:01 05/05/18 02:59 Sod Chlor 0.9% 1000ml Bag IV 06/04/18 02:00 75 mls/hr .[id number] DENISE Administration Insulin Glargine 35 unit 05/05/18 02:01 Lantus Insulin 100units/Ml 10ml Vial SQ 06/04/18 02:00 QHS DENISE Non-Formulary Medication 5 mg 05/05/18 09:00 Apixaban [Eliquis] PO 06/04/18 08:59 BID DENISE Non-Formulary Medication 10 mg 05/05/18 09:00 Bisoprolol Fumarate [Zebeta] PO 06/04/18 08:59 DAILY DENISE Non-Formulary Medication 30 unit 05/05/18 02:01 Insulin Aspart [Novolog] SUB-Q 06/04/18 02:00 DIRECTED DENISE Non-Formulary Medication 650 mg 05/05/18 09:00 Acetaminophen [Acetaminophen] PO 06/04/18 08:59 BID DENISE Non-Formulary Medication 17 gm 05/05/18 09:00 Polyethylene Glycol 3350 [Miralax Powder] PO 06/04/18 08:59 DAILY DENISE Pantoprazole Sodium 40 mg 05/05/18 09:00 Protonix 40mg Granule Packet PO 06/04/18 08:59 DAILY DENISE Potassium Chloride 20 meq 05/05/18 09:00 Klor-Con 20meq Tablet PO 06/04/18 08:59 BID DENISE Sodium Chloride 10 ml 05/05/18 02:01 Saline Flush 10ml Syringe IV 06/04/18 02:00 NEEDED PRN Maintain IV Site Discontinued Medications Generic Name Dose Route Start Last Admin Trade Name Freq PRN Reason Stop Dose Admin Sodium Chloride 1,000 mls @ 999 mls/hr 05/04/18 23:15 05/04/18 23:26 Sod Chlor 0.9% 1000ml Bag IV 05/05/18 00:15 999 mls/hr .Q1H1M DENISE Administration Ceftriaxone Sodium 1 gm/ 50 mls @ 100 mls/hr 05/05/18 00:30 05/05/18 00:19 Sodium Chloride IV 05/19/18 00:29 100 mls/hr Q24H DENISE Administration Protocol ORDERS Category Date Time Status CT head/brain wo con Stat Cat Scan 05/04/18 23:04 Taken XR chest AP Stat Exams 05/04/18 23:05 Taken Blood Culture Stat Micro 05/04/18 23:20 Received Urine Culture Stat Micro 05/04/18 23:20 Received - Radiology Data #1 Image(s): Chest Image Reviewed: Yes I reviewed the patient's radiology image Preliminary Findings: Normal/NAD - CT Data CT Scan: Head Time Received: 23:[address] Reviewed: Yes: I have viewed the radiologist's interpretation Preliminary Findings: Normal/NAD Findings Narrative: see radiologist's report from V rad - ECG Data Tracing #1 I reviewed this ECG and interpreted as documented below: No acute ischemic changes, heart rate 88, no ectopies. ECG normal with no acute: arrhythmias, ischemia, conduction abnormalities, chamber hypertrophy Normal Sinus Rhythm: Yes - Physician Consults Physician Consulted: Dr Pereira covering for Dr Conley Time: 01:20 Reason -: Admission, Pt condition - Reevaluation(s) Time: 01:34 Reevaluation #1: Upon reevaluation patient appears medically stable, however extremely drowsy, very lethargic, barely able to wake up answer questions. Decision is made to hospitalize patient at this time, noted to be properly monitored, given her multiple comorbid risk factors. Altered Mental Status HPI - General Chief Complaint: Altered Mental Status Stated Complaint: Hallucinations, drowsiness, possible UTI Time Seen by Provider: 05/04/18 22:55 Mode of Arrival: Family Vehicle Source of Information: Patient, Spouse Limitations: No Limitations Description of Symptoms (Recalled from ER Triage Doc. by RN): pt presents with confusion. states that patient had recent back surgery and is on increased pain meds. states that he thinks she has a uti. pt states he "changed patients fentanyl patch a few hours ago and gave her oxycodone, xanax, and 2 benadryl. - History of Present Illness HPI narrative: Patient recently underwent low back surgery, on 04/28/18, as a result she is on multiple narcotics at this time, including fentanyl patch, hydrocodone, as well as alprazolam. gave her a dose of hydrocodone, as well as alprazolam, without realizing that the patient has already taken 2 Benadryl as just minutes before, as well. believes that she may be having a urinary tract infection, as she has been previously confused under similar circumstances. Hospital advised that she was also hallucinating at home, and wondering aimlessly from place to place. MD complaint: altered mental status, confusion Onset (ago): hour(s) (2) Timing confirmed by: spouse Severity: moderate Consistency of symptoms: waxing and waning Context: history of similar presentation Associated symptoms: foul smelling urine - Related Data Home Medications Medication Instructions Recorded Confirmed ALPRAZolam [Xanax 0.5mg tab] 0.5 mg PO Q4-6H PRN 01/06/18 05/05/18 Apixaban [Eliquis] 5 mg PO BID 01/06/18 05/05/18 Atorvastatin Calcium [Atorvastatin 40 mg PO HS 01/06/18 05/05/18 40mg Tab] Bisoprolol Fumarate [Zebeta] 10 mg PO DAILY 01/06/18 05/05/18 Furosemide [Furosemide 40MG tAB] 40 mg PO DAILY 01/06/18 05/05/18 Gabapentin [Gabapentin 800mg Tab] 800 mg PO QID 01/06/18 05/05/18 Melatonin 10 mg PO HS 01/06/18 05/05/18 Oxycodone HCl [Oxycodone (IR) 10mg 10 mg PO Q6 01/06/18 05/05/18 Tab] Pantoprazole Sodium [Protonix 40mg 40 mg PO DAILY 01/06/18 05/05/18 (granule) packet] Polyethylene Glycol 3350 [Miralax 17 gm PO DAILY 01/06/18 05/05/18 Powder] Potassium Chloride [Klor-con 20 20 meq PO BID 01/06/18 05/05/18 mEq tablet] acetaminophen 325 mg capsule 650 mg PO BID 02/07/18 05/05/18 fentanyl 50 mcg/hr transdermal 1 patch TRANSDERMA Q72H 02/07/18 05/05/18 patch insulin aspart U-100 100 unit/mL 30 unit SUB-Q DIRECTED 02/07/18 05/05/18 subcutaneous solution insulin glargine (U-100) 100 35 unit SUB-Q QHS 02/07/18 05/05/18 unit/mL subcutaneous solution Allergies Allergy/AdvReac Type Severity Reaction Status Date / Time amitriptyline [From Elavil] Allergy Severe [id number]/THROAT; Verified 09:31 SEIZURES chlorpromazine Allergy Severe SEIZURES Verified 05/04/18 23:04 [From Thorazine] dichloralphenazone Allergy Severe S-SWELLS-OR Verified 05/04/18 23:04 [From Midrin] AL/THROAT isometheptene [From Midrin] Allergy Severe S-SWELLS-OR Verified 05/04/18 23:04 AL/THROAT prochlorperazine Allergy Severe SEIZURES Verified 05/04/18 23:04 [From Compazine] acetaminophen [From MIDRIN] Allergy Intermediate Verified 05/04/18 23:04 adhesive tape Allergy Intermediate I-RASH Verified 05/04/18 23:04 aspirin Allergy Intermediate "COLD Verified 05/04/18 23:04 SWEATS", N/V cyclobenzaprine Allergy Unknown Verified 05/04/18 23:04 [From FLEXERIL] duloxetine [DULOXETINE] Allergy Unknown Verified 05/04/18 23:04 Iodinated Contrast Media - Allergy Unknown Verified 05/04/18 23:04 Oral and [IODINATED CONTRAST MEDIA - ORAL AND] Sulfa (Sulfonamide Allergy Unknown "CONTRAINDICATED Verified 05/04/18 23:04 Antibiotics) WITH ASTHMA" trimethoprim [TRIMETHOPRIM] Allergy Unknown Verified 05/04/18 23:04 Beta-Blockers AdvReac Severe "MAKES Verified 05/04/18 23:04 (Beta-Adrenergic Bloc ASTHMA WORSE" caffeine [From Cafergot] AdvReac Mild NA-NAUSEA Verified 05/04/18 23:04 ergotamine [From Cafergot] AdvReac Mild NA-NAUSEA Verified 05/04/18 23:04 pregabalin [From Lyrica] AdvReac Mild "TOO Verified 05/04/18 23:04 SEDATED" NSAIDS (Non-Steroidal AdvReac Verified 05/04/18 23:04 Anti-Inflamma [facility] History I have reviewed the patient's past medical history: Yes Medical History: Reports:: Aneurysm, Asthma, Atrial Fibrillation, Cancer (SKIN CA), Chronic Obstructive Pulmonary Disease (COPD), Cerebrovascular Accident, Diabetes Mellitus Type 2, Hypertension, Internal Pacemaker, Lung Disease, MRSA, Renal Disease, Transient Ischemic Attacks (TIA), Tuberculosis Denies:: Diabetes Mellitus Type 1, Seizures Other Medical History: Reports: Arthritis, Cataracts, Fibromyalgia Comment: Heart Problems, SOA Laterality Cases: Right: Arthroscopy Shoulder Other Surgeries: Yes: Cancer Surgery, Cardiac Catheterization, Colonoscopy, Colon Resection, Hysterectomy-Total, Pacemaker Amputation: No Fractures: No Comment: Ablation in heart, Back surgery x3, Shoulder surgery, Small bowel blockage x4, Renal surgery - Social History Smoking Status: Never smoker Alcohol Intake: never Substance Use Type: denies use Occupational Status: retired Housing: house Household Members: spouse - Psychiatric History Expresses thoughts of harming self/others: None Suicide Plan Description: No Plan Family Hx:: Cancer, Hyperlipidemia, Diabetes, Heart Attack, Hypertension, Kidney Disease, Stroke, Thyroid Disorder, Tuberculosis, Asthma Comment: Radiation tx, Lung Disease, Emphysema, SOA ROS Obtained: Yes All systems reviewed & no additional complaints, Yes Systems reviewed as appropriate & no additional complaints - Neurologic Neurologic: Reports as per HPI, Reports confusion Physical Exam - General General appearance: alert, lethargic, in distress (mild), other (falls asleep in mid sentence) - Head Head exam: atraumatic, normocephalic, normal inspection - Neck Neck exam: Present: normal inspection, full ROM, trachea midline. Absent: meningismus, lymphadenopathy - Chest Chest inspection: Present: normal inspection, symmetric chest wall rise. Absent : tenderness - Respiratory Respiratory exam: Present: normal lung sounds bilaterally. Absent: respiratory distress - Cardiovascular Cardiovascular exam: Present: regular rate, normal rhythm. Absent: JVD - Abdominal Exam Abdominal exam: Present: soft, normal bowel sounds. Absent: distention, tenderness, guarding - Extremities Exam Extremities exam: Present: normal inspection, full ROM, normal capillary refill. Absent: calf tenderness - Back Exam Back exam: Present: normal inspection. Absent: tenderness - Neurological Exam Neurological exam: Present: alert, oriented X3, CN II-XII intact - Psychiatric Psychiatric exam: Present: depressed, flat affect - Skin Skin exam: Present: warm, dry, intact, normal color
--- NOTE | 2018-05-05 07:17 | Pharmacy Consult Notes ---
[facility] Pharmacy VTE Monitoring - Patient Demographics Admission date: 05/05/18 Report Date: 05/05/18 Time: 07:17 Allergies/Adverse Reactions: Patient Allergies amitriptyline [From Elavil] Allergy (Severe, Verified 04/25/18 09:31) [id number]/THROAT; SEIZURES chlorpromazine [From Thorazine] Allergy (Severe, Verified 05/04/18 23:04) SEIZURES dichloralphenazone [From Midrin] Allergy (Severe, Verified 05/04/18 23:04) Q-[id number]-[id number]/THROAT isometheptene [From Midrin] Allergy (Severe, Verified 05/04/18 23:04) M-[id number]-YHTS/THROAT prochlorperazine [From Compazine] Allergy (Severe, Verified 05/04/18 23:04) SEIZURES acetaminophen [From MIDRIN] Allergy (Intermediate, Verified 05/04/18 23:04) adhesive tape Allergy (Intermediate, Verified 05/04/18 23:04) I-RASH aspirin Allergy (Intermediate, Verified 05/04/18 23:04) "COLD SWEATS", N/V cyclobenzaprine [From FLEXERIL] Allergy (Unknown, Verified 05/04/18 23:04) duloxetine [DULOXETINE] Allergy (Unknown, Verified 05/04/18 23:04) Iodinated Contrast Media - Oral and [IODINATED CONTRAST MEDIA - ORAL AND] Allergy (Unknown, Verified 05/04/18 23:04) Sulfa (Sulfonamide Antibiotics) Allergy (Unknown, Verified 05/04/18 23:04) "CONTRAINDICATED WITH ASTHMA" trimethoprim [TRIMETHOPRIM] Allergy (Unknown, Verified 05/04/18 23:04) Beta-Blockers (Beta-Adrenergic Bloc Adverse Reaction (Severe, Verified 05/04/18 23:04) "MAKES ASTHMA WORSE" caffeine [From Cafergot] Adverse Reaction (Mild, Verified 05/04/18 23:04) NA-NAUSEA ergotamine [From Cafergot] Adverse Reaction (Mild, Verified 05/04/18 23:04) NA-NAUSEA pregabalin [From Lyrica] Adverse Reaction (Mild, Verified 05/04/18 23:04) "TOO SEDATED" NSAIDS (Non-Steroidal Anti-Inflamma Adverse Reaction (Verified 05/04/18 23:04) Height: 1.78 m Weight: 91.824 kg Patient Problems: Current Active Problems UTI (urinary tract infection) (Acute) Altered mental status (Acute) - VTE Risk Labs: VTE Related Lab Results Hgb 9.9 g/dL (12.2-16.2) L 05/04/18 23:20 Hct 31.2 % (37.0-47.0) L 05/04/18 23:20 Plt Count 242 K/mm3 (142-424) 05/04/18 23:20 BUN 23 mg/dL (7-18) H 05/04/18 23:20 Creatinine 1.67 mg/dL (0.55-1.02) H 05/04/18 23:20 Estimated Creat Clear 39 mL/min (0-300) 05/04/18 23:20 Was VTE Risk Assessment Performed: Yes VTE Risk Level: Low Risk - Prophylaxis VTE Prophylaxis Ordered?: Yes Types of VTE Prophylaxis: TEDS Knee High, Pharmacological Location of Applied Device: Bilateral Lower Extremeties Pharmacologic Type: Other (ELIQUIS) - VTE Diagnosis Confirmed Treatment or plan recommended: Continue Current Treatment
--- NOTE | 2018-05-05 07:21 | History & Physical Report ---
*Admission Date: 05/05/18 *Chief complaint: Confusion *History of present illness: Ms. Espinosa has an extensive history of recurrent urinary tract infections and use of pain medications, antihistamines, benzodiazepines for anxiety. She presented with worsening altered mental status over the past 3 days noted by her significant other. She denies any dysuria, fevers, chills, hematuria. Her main presenting symptom was confusion. Her significant other reports she was beginning to have hallucinations and responding to internal stimuli. Denies any trauma or falls. No back pain, diarrhea, nausea or vomiting reported. To the ER because he was concerned it was another UTI. "This is how her urinary tract infections present". Initially seen in the emergency room where he UA was positive for leukoesterase, nitrates, bacteria. Started on ceftriaxone. Admitted for IV access and because of confusion. [facility] History Medical History: Reports:: Aneurysm, Asthma, Atrial Fibrillation, Cancer (SKIN CA), Chronic Obstructive Pulmonary Disease (COPD), Cerebrovascular Accident, Diabetes Mellitus Type 2, Hypertension, Internal Pacemaker, Lung Disease, MRSA, Renal Disease, Transient Ischemic Attacks (TIA), Tuberculosis Denies:: Diabetes Mellitus Type 1, Seizures Other Medical History: Reports: Arthritis, Cataracts, Fibromyalgia Laterality Cases: Right: Arthroscopy Shoulder Other Surgeries: Yes: Cancer Surgery, Cardiac Catheterization, Colonoscopy, Colon Resection, Hysterectomy-Total, Pacemaker Amputation: No Fractures: No - *Social History Educational Level: Attended College Smoking Status: Never smoker Alcohol Intake: never Substance Use Type: denies use Occupational Status: retired Housing: house Household Members: spouse - Psychiatric History Expresses thoughts of harming self/others: None Suicide Plan Description: No Plan *Family Hx:: Cancer, Hyperlipidemia, Diabetes, Heart Attack, Hypertension, Kidney Disease, Stroke, Thyroid Disorder, Tuberculosis, Asthma Review of Systems - *Neurologic Reports confusion Meds Home Medications Medication Instructions Recorded Confirmed Type ALPRAZolam [Xanax 0.5mg tab] 0.5 mg PO Q4-6H PRN 01/06/18 05/05/18 History Apixaban [Eliquis] 5 mg PO BID 01/06/18 05/05/18 History Atorvastatin Calcium [Atorvastatin 40 mg PO HS 01/06/18 05/05/18 History 40mg Tab] Bisoprolol Fumarate [Zebeta] 10 mg PO DAILY 01/06/18 05/05/18 History Furosemide [Furosemide 40MG tAB] 40 mg PO DAILYP PRN 01/06/18 05/05/18 History Gabapentin [Gabapentin 800mg Tab] 800 mg PO QID 01/06/18 05/05/18 History Melatonin 10 mg PO HS 01/06/18 05/05/18 History Oxycodone HCl [Oxycodone (IR) 10mg 10 mg PO Q4HP PRN 01/06/18 05/05/18 History Tab] Pantoprazole Sodium [Protonix 40mg 40 mg PO DAILY 01/06/18 05/05/18 History (granule) packet] Polyethylene Glycol 3350 [Miralax 17 gm PO DAILY 01/06/18 05/05/18 History Powder] Potassium Chloride [Klor-con 20 20 meq PO BID 01/06/18 05/05/18 History mEq tablet] acetaminophen 325 mg capsule 500 mg PO BID 02/07/18 05/05/18 History fentanyl 50 mcg/hr transdermal 1 patch TRANSDERMA Q72H 02/07/18 05/05/18 History patch insulin aspart U-100 100 unit/mL 13 unit SUB-Q QID 02/07/18 05/05/18 History subcutaneous solution Insulin Detemir [Levemir 100 0 units SQ DAILY 05/05/18 05/05/18 History units/mL 10mL vial] Insulin Detemir [Levemir 100 40 unit SQ HS 05/05/18 05/05/18 History units/mL 10mL vial] Allergies Allergy/AdvReac Type Severity Reaction Status Date / Time amitriptyline [From Elavil] Allergy Severe [id number]/THROAT; Verified 09:31 SEIZURES chlorpromazine Allergy Severe SEIZURES Verified 05/04/18 23:04 [From Thorazine] dichloralphenazone Allergy Severe S-SWELLS-OR Verified 05/04/18 23:04 [From Midrin] AL/THROAT isometheptene [From Midrin] Allergy Severe S-SWELLS-OR Verified 05/04/18 23:04 AL/THROAT prochlorperazine Allergy Severe SEIZURES Verified 05/04/18 23:04 [From Compazine] adhesive tape Allergy Intermediate I-RASH Verified 05/04/18 23:04 aspirin Allergy Intermediate "COLD Verified 05/04/18 23:04 SWEATS", N/V cyclobenzaprine Allergy Unknown Unknown Verified 05/05/18 07:52 [From FLEXERIL] allergy reaction duloxetine [DULOXETINE] Allergy Unknown Unknown Verified 05/05/18 07:52 allergy reaction Iodinated Contrast Media - Allergy Unknown Unknown Verified 05/05/18 07:52 Oral and allergy [IODINATED CONTRAST MEDIA - reaction ORAL AND] Sulfa (Sulfonamide Allergy Unknown "CONTRAINDICATED Verified 05/04/18 23:04 Antibiotics) WITH ASTHMA" trimethoprim [TRIMETHOPRIM] Allergy Unknown Unknown Verified 05/05/18 07:52 allergy reaction Beta-Blockers AdvReac Severe "MAKES Verified 05/04/18 23:04 (Beta-Adrenergic Bloc ASTHMA WORSE" caffeine [From Cafergot] AdvReac Mild NA-NAUSEA Verified 05/04/18 23:04 ergotamine [From Cafergot] AdvReac Mild NA-NAUSEA Verified 05/04/18 23:04 pregabalin [From Lyrica] AdvReac Mild "TOO Verified 05/04/18 23:04 SEDATED" NSAIDS (Non-Steroidal AdvReac Unknown Verified 05/05/18 07:52 Anti-Inflamma allergy reaction Exam Vital signs and Labs for Last 24 Hours: Temp Pulse Resp BP Pulse Ox 97.8 F 75 18 129/77 100 05/05/18 03:59 05/05/18 03:59 05/05/18 03:59 05/05/18 03:59 05/05/18 03:59 Laboratory Results - last 24 hr 05/04/18 23:20: WBC 8.4, RBC 3.34 L, Hgb 9.9 L, Hct 31.2 L, MCV 93.6, MCH 29.6, MCHC 31.6 L, RDW 15.0, Plt Count 242, MPV 7.9, Neut % (Auto) 56.7, Lymph % (Auto ) 35.6, [place] % (Auto) 4.5, Eos % (Auto) 2.9, Baso % (Auto) 0.3, Neut # (Auto) 4.8, Lymph # (Auto) 3.0, [place] # (Auto) 0.4, Eos # (Auto) 0.3, Baso # (Auto) 0.0 05/04/18 23:20: Sodium 137, Potassium 4.2, Chloride 106, Carbon Dioxide 27, Anion Gap 8.2, BUN 23 H, Creatinine 1.67 H, Estimated Creat Clear 39, Estimated GFR 30 L, Est GFR ( Amer) 37 L, Glucose 274 H, Calcium 8.6, Total Bilirubin 0.3, AST 12 L, ALT 19, Alkaline Phosphatase 177 H, Total Creatine Kinase 149, CK-MB (CK-2) 2.0, CK-MB (CK-2) Rel Index 1.3, Troponin I < 0.02, Total Protein 7.1, Albumin 3.3 L, Globulin 3.8 H, Albumin/Globulin Ratio 0.9 L 05/04/18 23:20: Urine Color Yellow, Urine Appearance Clear, Urine pH 5.5, Ur Specific [place] 1.015, Urine Protein Negative, Urine Glucose (UA) 2+, Urine Ketones Negative, Urine Blood Trace-i, Urine Nitrate Negative, Urine Bilirubin Negative, Urine Urobilinogen 0.2, Ur Leukocyte Esterase 1+ A, Urine RBC 5-10, Urine WBC 20-50, Urine Bacteria 1+, Fine Granular Casts 3-5, Urine Mucus 1+ 05/04/18 23:20: Lactate 1.2 05/04/18 23:20: Urine Opiates Screen Positive H, Urine Methadone Screen Negative , Ur Barbituates Screen Negative, Ur Phencyclidine Scrn Negative, Ur Amphetamines Screen Negative, U Benzodiazepines Scrn Positive H, Urine Cocaine Screen Negative, U Marijuana (THC) Screen Negative I & O for Last 24 hours: Intake & Output 05/02/18 05/03/18 05/04/18 05/05/18 23:59 23:59 23:59 23:59 Intake Total 1050 / 1050 Balance 1050 / 1050 Weight 80.739 kg 91.824 kg - *Routine HEENT Exam Head: Present: normocephalic, atraumatic Eye: Present: EOMI, PERRL. Absent: conjunctival icterus ENT: Present: mucous membranes moist, dentition normal - *Routine Neck Exam Present: supple. Absent: full ROM, lymphadenopathy - *Routine Respiratory Exam Present: CTA bilaterally. Absent: accessory muscle use, prolonged expiratory phase, rales, wheezes, crackles - *Routine Cardiovascular Exam Present: RRR, Normal S1, Normal S2. Absent: murmur, gallop - *Routine Abdominal Exam Present: soft, normoactive bowel sounds, tenderness (Suprapubic) - *Routine Rectal Exam Patient deferred: visual exam - *Routine Exam Patient deferred: external exam - *Routine Extremities Exam Absent: cyanosis, clubbing, edema - *Routine Skin Exam Present: intact. Absent: cyanosis, erythema - *Routine Neurological Exam Present: alert, oriented X3, CN II-XII intact - Routine Psychiatric Exam Present: normal affect, cooperative H&P: Result - Labs Labs: Short CBC 05/04/18 Range/Units 23:20 WBC 8.4 (4.8-10.8) K/mm3 Hgb 9.9 L (12.2-16.2) g/dL Hct 31.2 L (37.0-47.0) % Plt Count 242 (142-424) K/mm3 BMP 05/04/18 23:20 Sodium 137 Potassium 4.2 Chloride 106 Carbon Dioxide 27 BUN 23 H Creatinine 1.67 H Glucose 274 H Calcium 8.6 Cardiac Enzymes 05/04/18 Range/Units 23:20 Total Creatine Kinase 149 (26-192) U/L CK-MB (CK-2) 2.0 (0.0-3.6) ng/ml Troponin I < 0.02 (0.00-0.06) ng/ml Liver Function 05/04/18 Range/Units 23:20 Total Bilirubin 0.3 (0.2-1.0) mg/dL AST 12 L (15-37) U/L ALT 19 (12-78) U/L Alkaline Phosphatase 177 H (46-116) U/L Albumin 3.3 L (3.4-5.0) gm/dL Urine 05/04/18 Range/Units 23:20 Urine Color Yellow (Yellow) Urine Appearance Clear (Clear) Urine pH 5.5 (5.0-8.5) Ur Specific [place] 1.015 (1.005-1.030) Urine Protein Negative (Negative) Urine Glucose (UA) 2+ (Negative) Assessment and Plan (1) Acute kidney injury superimposed on CKD Current visit: Yes Status: Acute Category: Medical Code(s): N17.9 - Acute kidney failure, unspecified; N18.9 - Chronic kidney disease, unspecified (2) Altered mental status Current visit: Yes Status: Acute Qualifiers: Altered mental status type: unspecified Qualified Code(s): R41.82 - Altered mental status, unspecified Category: Medical Code(s): R41.82 - Altered mental status, unspecified (3) UTI (urinary tract infection) Current visit: Yes Status: Acute Qualifiers: Urinary tract infection type: acute cystitis Hematuria presence: without hematuria Qualified Code(s): N30.00 - Acute cystitis without hematuria Category: Medical Code(s): N39.0 - Urinary tract infection, site not specified (4) Chronic pain disorder Current visit: No Status: Acute Category: Medical Code(s): G89.4 - Chronic pain syndrome (5) CHF (congestive heart failure) Current visit: Yes Status: Acute Category: Medical Code(s): I50.9 - Heart failure, unspecified Continue home bisoprolol, atorvastatin, Lasix, and apixaban due to pacemaker (6) Diabetes Current visit: Yes Status: Chronic Category: Medical Code(s): E11.9 - Type 2 diabetes mellitus without complications Continue home insulin regimen with fingerstick glucose (7) GERD (gastroesophageal reflux disease) Current visit: Yes Status: Acute Category: Medical Code(s): K21.9 - Gastro -esophageal reflux disease without esophagitis Continue PPI - Assessment and plan all Dx Assessment and Plan for all problems:: 72-year-old female comorbidities admitted for complicated UTI. -Continue ceftriaxone every 24 hours -Any fluid resuscitation, bolus LR 500 cc 1 today -Reassess kidney function in the morning -Urine culture and sensitivities pending, de-escalate antibiotics pending results -Minimize medications putting patient at risk for confusion
[2018-05-06 06:48] LABS: Anion Gap 9.3 mEq/L (5-15); Calcium 8.5 mg/dL (8.5-10.1); Potassium 4.3 mmoL/L (3.5-5.1)
--- NOTE | 2018-05-06 09:41 | Progress Note ---
Internal Medicine - PN: Subj *Date: 05/06/18 *Time: 08:00 Interval history: Patient reports nausea has improved with Zofran. + dysuria and malodorous urine. No hematuria. States she "feels better." Mental status has returned to baseline. Alert and oriented x3. Rate and rhythm regular. Pulses 2+ bilaterally. Lung sounds clear and equal. Abdomen soft, nondistended, mild suprapubic tenderness. No LE edema. Exam Vital signs and Labs for Last 24 Hours: Temp Pulse Resp BP Pulse Ox 98.4 F 76 20 170/80 96 05/06/18 08:00 05/06/18 08:00 05/06/18 08:00 05/06/18 08:00 05/06/18 09:06 Laboratory Results - last 24 hr 05/05/18 11:03: POC Glucose 374 H* 05/05/18 16:07: POC Glucose 354 H* 05/05/18 21:30: POC Glucose 373 H* 05/06/18 05:55: Sodium 138, Potassium 4.3, Chloride 107, Carbon Dioxide 26, Anion Gap 9.3, BUN 15 D, Creatinine 1.04 H D, Estimated Creat Clear 66, Estimated GFR 52 L, Est GFR ( Amer) 63 D, Glucose 345 H, Calcium 8.5 I & O for Last 24 hours: Intake & Output 05/03/18 05/04/18 05/05/18 05/06/18 11:59 11:59 11:59 11:59 Intake Total 1050 / 1050 2022 Balance 1050 / 1050 2022 Weight 202 lb 7 oz 186 lb 9 oz Microbiology Reports for the Last 24 Hours: Microbiology 05/04/18 23:20 Urine,Catheterized Urine Culture - Preliminary NO GROWTH AFTER 24 HOURS Assessment and Plan (1) Acute kidney injury superimposed on CKD Current visit: Yes Status: Acute Category: Medical Code(s): N17.9 - Acute kidney failure, unspecified; N18.9 - Chronic kidney disease, unspecified (2) Altered mental status Current visit: Yes Status: Acute Qualifiers: Altered mental status type: unspecified Qualified Code(s): R41.82 - Altered mental status, unspecified Category: Medical Code(s): R41.82 - Altered mental status, unspecified (3) UTI (urinary tract infection) Current visit: Yes Status: Acute Qualifiers: Urinary tract infection type: acute cystitis Hematuria presence: without hematuria Qualified Code(s): N30.00 - Acute cystitis without hematuria Category: Medical Code(s): N39.0 - Urinary tract infection, site not specified (4) Chronic pain disorder Current visit: No Status: Acute Category: Medical Code(s): G89.4 - Chronic pain syndrome (5) CHF (congestive heart failure) Current visit: Yes Status: Acute Category: Medical Code(s): I50.9 - Heart failure, unspecified (6) Diabetes Current visit: Yes Status: Chronic Category: Medical Code(s): E11.9 - Type 2 diabetes mellitus without complications (7) GERD (gastroesophageal reflux disease) Current visit: Yes Status: Acute Category: Medical Code(s): K21.9 - Gastro -esophageal reflux disease without esophagitis - Assessment and plan all Dx Assessment and Plan for all problems:: Improving. Continue IV antibiotics. Urine culture pending. Oral intake has improved, d/c IVF's.
--- NOTE | 2018-05-07 09:58 | Progress Note ---
Internal Medicine - PN: Subj *Date: 05/07/18 *Time: 10:06 Interval history: Ms. Leon had some intermittent nausea overnight. Responded to Zofran. Decreased fluid intake due to nausea. Reports she is feeling well this morning. Labs stable this morning. Starting to have some complaint of neuropathy. Denies shortness of breath, fevers, diarrhea, confusion. Exam Vital signs and Labs for Last 24 Hours: Temp Pulse Resp BP Pulse Ox 98.3 F 75 18 154/81 96 05/07/18 07:59 05/07/18 07:59 05/07/18 07:59 05/07/18 07:59 05/07/18 07:59 Laboratory Results - last 24 hr 05/06/18 06:37: POC Glucose 332 H* 05/06/18 11:20: POC Glucose 305 H* 05/06/18 16:25: POC Glucose 268 H 05/06/18 20:20: POC Glucose 197 H 05/07/18 05:54: POC Glucose 123 H I & O for Last 24 hours: Intake & Output 05/04/18 05/05/18 05/06/18 05/07/18 23:59 23:59 23:59 23:59 Intake Total 3073 / 3073 240 / 240 240 / 240 Balance 3073 / 3073 240 / 240 240 / 240 Weight 80.739 kg 91.824 kg 84.623 kg Microbiology Reports for the Last 24 Hours: Microbiology 05/04/18 23:20 Urine,Catheterized Urine Culture - Final NO GROWTH AFTER 48 HOURS 05/04/18 23:20 Blood Blood Culture - Preliminary NO GROWTH AFTER 48 HOURS 05/04/18 23:20 Blood Blood Culture - Preliminary NO GROWTH AFTER 48 HOURS - *Routine HEENT Exam Head: Present: normocephalic, atraumatic Eye: Present: EOMI, PERRL ENT: Present: mucous membranes moist - *Routine Neck Exam Present: supple, full ROM - *Routine Respiratory Exam Present: CTA bilaterally. Absent: prolonged expiratory phase, rales, crackles - *Routine Cardiovascular Exam Present: RRR, Normal S1, Normal S2. Absent: murmur - *Routine Abdominal Exam Present: soft, normoactive bowel sounds. Absent: tenderness - *Routine Rectal Exam Patient deferred: visual exam - *Routine Exam Patient deferred: external exam - *Routine Extremities Exam Absent: cyanosis, clubbing, edema - *Routine Skin Exam Present: intact. Absent: cyanosis, erythema - *Routine Neurological Exam Present: alert, oriented X3, CN II-XII intact, moving all extremities Assessment and Plan (1) Acute kidney injury superimposed on CKD Current visit: Yes Status: Acute Category: Medical Code(s): N17.9 - Acute kidney failure, unspecified; N18.9 - Chronic kidney disease, unspecified (2) Altered mental status Current visit: Yes Status: Acute Qualifiers: Altered mental status type: unspecified Qualified Code(s): R41.82 - Altered mental status, unspecified Category: Medical Code(s): R41.82 - Altered mental status, unspecified (3) UTI (urinary tract infection) Current visit: Yes Status: Acute Qualifiers: Urinary tract infection type: acute cystitis Hematuria presence: without hematuria Qualified Code(s): N30.00 - Acute cystitis without hematuria Category: Medical Code(s): N39.0 - Urinary tract infection, site not specified (4) Chronic pain disorder Current visit: No Status: Acute Category: Medical Code(s): G89.4 - Chronic pain syndrome (5) CHF (congestive heart failure) Current visit: Yes Status: Acute Category: Medical Code(s): I50.9 - Heart failure, unspecified (6) Diabetes Current visit: Yes Status: Chronic Category: Medical Code(s): E11.9 - Type 2 diabetes mellitus without complications (7) GERD (gastroesophageal reflux disease) Current visit: Yes Status: Acute Category: Medical Code(s): K21.9 - Gastro -esophageal reflux disease without esophagitis - Assessment and plan all Dx Assessment and Plan for all problems:: Kidney injury improving with fluid resuscitation -Bolus LR 500 cc today -Continue ceftriaxone 1 more dose tonight for 3 total doses -Urine culture negative to date -Zofran for nausea -Initiate gabapentin 3 times a day 800 mg for neuropathy -Instructed to get up to bedside chair 2 times today, ambulate around the hallway at least once -Monitor glucose, continue current insulin regimen -Significant concern for polypharmacy is underlying etiology for symptoms and presentation. Adjustments have been made to home regimen with decrease in oxycodone, decrease alprazolam, decreasing gabapentin. Monitor overnight for stability to tolerance. If stable in the morning, plan for discharge home on decreased regimen of pain and anxiety medications. -Continues to require inpatient management.
[2018-05-08 07:25] VITALS: BP 141/76
--- NOTE | 2018-05-08 07:28 | Discharge Summary ---
General - General Admission date:: 05/05/18 Discharge date: 05/08/18 HPI HPI: Ms. Espinosa has an extensive history of recurrent urinary tract infections and use of pain medications, antihistamines, benzodiazepines for anxiety. She presented with worsening altered mental status over the past 3 days noted by her significant other. She denies any dysuria, fevers, chills, hematuria. Her main presenting symptom was confusion. Her significant other reports she was beginning to have hallucinations and responding to internal stimuli. Denies any trauma or falls. No back pain, diarrhea, nausea or vomiting reported. To the ER because he was concerned it was another UTI. "This is how her urinary tract infections present". Initially seen in the emergency room where he UA was positive for leukoesterase, nitrates, bacteria. Started on ceftriaxone. Admitted for IV access and because of confusion. Hospital Course Hospital Course: Patient was admitted, placed on IV ceftriaxone. Urinalysis looked suspicious but urine culture was no growth. Patient was treated with a total of 3 days of intravenous ceftriaxone. Her constitutional symptoms improved very nicely with IV fluids and antibiotics but also with the holding/decrease of her opiates and benzodiazepines. It turns out her is probably giving her more medication than prescribed and she is on a host of medications that can cause mental status changes and confusions. Discussion with the and her ensued about the risk of polypharmacy and trying a new regimen of reduced opiates and benzodiazepines as well as continuing on a stable dose of gabapentin. We recommended cutting back Xanax dose to 3 times daily instead of every 4 as needed, recommended cutting oxycodone to twice daily scheduled instead of every 4 hours as needed as she was being given. Recommended continuing her fentanyl patch, recommended cutting down gabapentin to 3 times daily instead of 4 times daily. Obviously this will need to be continued to wean and her primary physician's office as tolerated. This morning she was doing well. Please see exam notes for details below. Plan will be to be discharged home on new lower dose opiate regimen. She will follow-up with her primary physician, Dr. Medel in 2 days. Objective Vital signs: Temp Pulse Resp BP Pulse Ox 97.5 F L 95 H 20 135/78 96 05/08/18 03:49 05/08/18 03:49 05/08/18 03:49 05/08/18 03:49 05/08/18 03:49 Narrative: Patient is awake. Alert. A little bit weak according to her report but much stronger. She is pleasant and talkative. Anterior lung freedman are clear, heart rate regular, abdomen soft, skin is warm and well-perfused. Cranial nerves are symmetric and she is able to move all of her extremities symmetrically. Results Labs on day of discharge: Labs from last 24 hours 05/07/18 05/07/18 20:45 10:46 POC Glucose 262 H 191 H Preliminary micro results at discharge 05/04/18 23:20 Blood Culture - Preliminary Blood NO GROWTH AFTER 48 HOURS 05/04/18 23:20 Blood Culture - Preliminary Blood NO GROWTH AFTER 48 HOURS DS: Diagnosis - Discharge Diagnosis (1) Acute kidney injury superimposed on CKD Status: Resolved (2) Altered mental status Status: Resolved (3) UTI (urinary tract infection) Status: Ruled-out (4) Chronic pain disorder Status: Chronic (5) CHF (congestive heart failure) Status: Chronic (6) Diabetes Status: Chronic (7) GERD (gastroesophageal reflux disease) Status: Chronic (8) Polypharmacy Status: Chronic Discharge Plan - Patient Discharge Instructions ACTIVITY: Continue current activity DIET: continue same diet - Follow up Plan Follow up with: Geovany Medel [Primary Care Provider] - 2 days Disposition: Home, Self-Halfway Medications: Home Medications Medication Instructions Recorded Confirmed Type Apixaban [Eliquis] 5 mg PO BID 01/06/18 05/05/18 History Atorvastatin Calcium [Atorvastatin 40 mg PO HS 01/06/18 05/05/18 History 40mg Tab] Bisoprolol Fumarate [Zebeta] 10 mg PO DAILY 01/06/18 05/05/18 History Furosemide [Furosemide 40MG tAB] 40 mg PO DAILYP PRN 01/06/18 05/05/18 History Melatonin 10 mg PO HS 01/06/18 05/05/18 History Pantoprazole Sodium [Protonix 40mg 40 mg PO DAILY 01/06/18 05/05/18 History (granule) packet] Polyethylene Glycol 3350 [Miralax 17 gm PO DAILY 01/06/18 05/05/18 History Powder] Potassium Chloride [Klor-con 20 20 meq PO BID 01/06/18 05/05/18 History mEq tablet] acetaminophen 325 mg capsule 500 mg PO BID 02/07/18 05/05/18 History fentanyl 50 mcg/hr transdermal 1 patch TRANSDERMA Q72H 02/07/18 05/05/18 History patch insulin aspart U-100 100 unit/mL 13 unit SUB-Q QID 02/07/18 05/05/18 History subcutaneous solution Insulin Detemir [Levemir 100 0 units SQ DAILY 05/05/18 05/05/18 History units/mL 10mL vial] Insulin Detemir [Levemir 100 40 unit SQ HS 05/05/18 05/05/18 History units/mL 10mL vial] Prescriptions/Medication Reconciliation: Continue acetaminophen 325 mg capsule 500 mg PO BID fentanyl 50 mcg/hr transdermal patch 1 patch TRANSDERMA Q72H insulin aspart U-100 100 unit/mL subcutaneous solution 13 unit SUB-Q QID Potassium Chloride [Klor-con 20 mEq tablet] 20 meq PO BID Furosemide [Furosemide 40MG tAB] 40 mg PO DAILYP PRN PRN Reason: HYPERTENSION Pantoprazole Sodium [Protonix 40mg (granule) packet] 40 mg PO DAILY Polyethylene Glycol 3350 [Miralax Powder] 17 gm PO DAILY Melatonin 10 mg PO HS Bisoprolol Fumarate [Zebeta] 10 mg PO DAILY Atorvastatin Calcium [Atorvastatin 40mg Tab] 40 mg PO HS Apixaban [Eliquis] 5 mg PO BID Insulin Detemir [Levemir 100 units/mL 10mL vial] 0 units SQ DAILY Insulin Detemir [Levemir 100 units/mL 10mL vial] 40 unit SQ HS Changed ALPRAZolam [Xanax 0.5mg tab] 0.5 mg PO TID PRN 30 Days tablet PRN Reason: Anxiety Gabapentin [Gabapentin 800mg Tab] 800 mg PO TID #90 tablet Oxycodone HCl [Oxycodone (IR) 10mg Tab] 10 mg PO BID #60 tablet
== END 2018-05-08 09:14 | disposition home or self-care (01) ==
LOC: 2ND 22:53 → ER 22:53 → 2ND 05-05 01:56
PROVIDERS: ADMIT Family Medicine; ATTEND Internal Medicine Adolescent Medicine
CPT/HCPCS: 36415; 70450; 71010; 71045; 80048; 80053; 80305; 81001; 82550; 82553; 82962; 83605; 84484; 85025; 87040; 87086; 93005; 94761; 96365; 96367; 97110; 97116; 97162; 99285; G0378

== ENCOUNTER → 2018-07-07 16:23 | Outpatient (REF) | payer MEDICARE, SELFPAY ==
[2018-07-07 16:27] LABS: Adenovirus F 40/41, stool Not Detected (NotDetected); Astrovirus Not Detected (NotDetected); Campylobacter Not Detected (NotDetected); Clostridium Difficile A/B, PCR Not Detected (NotDetected); Cryptosporidium Not Detected (NotDetected); Cyclospora Cayetanesis Not Detected (NotDetected); Entamoeba histolytica Not Detected (NotDetected); Enteroaggregative E coli Not Detected (NotDetected); Enteropathogenic E coli Not Detected (NotDetected); Enterotoxigenic E coli Not Detected (NotDetected); Giardia lamblia Not Detected (NotDetected); Norovirus Not Detected (NotDetected); Plesimonas Shigalloides, PCR Not Detected (NotDetected); Rotavirus A Not Detected (NotDetected); Salmonella, PCR Not Detected (NotDetected); Sapovirus Not Detected (NotDetected); Shiga-like toxin E coli Not Detected (NotDetected); Shigella Enterovasive E coli Not Detected (NotDetected); Vibrio Cholerae Not Detected (NotDetected); Vibrio, PCR Not Detected (NotDetected); Yersinia Entercolitica, PCR Not Detected (NotDetected)
== END ==
LOC: LAB 16:23
PROVIDERS: Visit Provider Internal Medicine
DX: R19.7 Diarrhea, unspecified (principal)
CPT/HCPCS: 87507

== ENCOUNTER → 2018-07-13 14:35 | Outpatient (CLI) | payer MEDICARE, SELFPAY ==
--- NOTE | 2018-07-13 14:39 | MM_ITS ---
MM Dig screening mamm BI w/CAD ORDERING PHYSICIAN : Geovany Medel PATIENT AGE: 72 years GENDER: Female COMPARISON: Bilateral digital mammogram August 2015, & March 2013 Also January 2010 film screen study INDICATION: ITS.REASON: SCREENING. No hormones. No new complaints. Family history. Mother and maternal grandmother with breast cancer TECHNIQUE: Standard CC and MLO images were obtained. R2 CAD reviewed. FINDINGS: Minimal residual fibroglandular elements. Scattered small benign character calcifications including vascular calcifications as well as some likely minimal secretory calcifications lateral right breast. RIGHT BREAST:No significant new areas of concern. Area of density deep upper quadrant change. LEFT BREAST:No new areas of concern. Small benign areas nodularity upper-outer quadrant stable . pacemaker projected over the axillary left breast, again noted IMPRESSION: Stable bilateral mammogram. No new areas of significant concern. Bilateral follow-up in one year recommended. BI-RADS Category: 2 Benign Finding(s) RECOMMENDED FOLLOW-UP: 1YR 1 YEAR FOLLOW-UP (A letter has been sent to the patient regarding results of the study.)
== END ==
PROVIDERS: Family Provider Internal Medicine; PCP Internal Medicine; Visit Provider Internal Medicine
DX: Z12.31 Encounter for screening mammogram for malignant neoplasm of breast (principal)
CPT/HCPCS: 77067

== ENCOUNTER → 2018-08-08 14:32 | Outpatient (CLI) | payer MEDICARE, SELFPAY ==
--- NOTE | 2018-08-08 14:37 | XR_ITS ---
EXAM: XR lumbar spine min 4V HISTORY: Low back pain following injury, prior surgery ITS.REASON: S/P FALL, LBP ORDERING PHYSICIAN: Geovany Medel PATIENT AGE: 72 years COMPARISON: 06/03/2017 FINDINGS: Interval posterior fusion with interpedicular screws at L2 and L3. There is some increased sclerosis along the inferior endplate of L2 with degenerative disc disease at L2-L3. There has been prior fusion at L3 and L4. The interpedicular screws at L4 and been removed. Disc spaces are present at L2-L3 and L3-L4 and L4-L5. There is normal alignment. No acute fracture or dislocation. Multiple surgical clips are present in the abdomen and right upper quadrant. Facet arthritic changes are noted at L4-5 and L5-S1. IMPRESSION: Postsurgical changes as described above with degenerative changes. No acute fracture
== END ==
PROVIDERS: PCP Internal Medicine; Visit Provider Internal Medicine
DX: M54.5 Low back pain (principal)
CPT/HCPCS: 72110

== ENCOUNTER 2018-11-01 10:00 | Outpatient (RCR) | payer MEDICARE, SELFPAY | END 2018-11-01 10:10 | disposition home or self-care (01) | LOC: PT 10:00 | PROVIDERS: Visit Provider Physician Assistant Surgical | DX: Z98.1 Arthrodesis status (principal); M51.36 Other intervertebral disc degeneration, lumbar region; M51.26 Other intervertebral disc displacement, lumbar region; M48.062 Spinal stenosis, lumbar region with neurogenic claudication; M25.551 Pain in right hip; R25.1 Tremor, unspecified | CPT/HCPCS: 97010; 97014; 97033; 97110; 97112; 97140; 97163; 97164; G0283 ==

== ENCOUNTER → 2018-11-20 13:40 | Outpatient (CLI) | payer MEDICARE, SELFPAY ==
[2018-11-20 14:07] LABS: Basophils % 0.2 % (0.1-2.0); Eosinophils # 0.2 K/mm3 (0.0-0.4); Hematocrit 38.8 % (37.0-47.0); Hemoglobin 11.7 g/dL (12.2-16.2); Lymphocytes # 3.1 K/mm3 (0.7-4.5); Lymphocytes % 32.3 % (10-50); Mean Corpuscular HGB Conc 30.3 g/dL (31.8-35.4); Mean Corpuscular Hemoglobin 27.8 pg (27.0-31.2); Mean Corpuscular Volume 91.8 fl (81-99); Mean Platelet Volume 8.3 fl (7.4-10.4); Monocytes # 0.4 K/mm3 (0.1-1.0); Monocytes % 3.6 % (1.7-9.3); Neutrophils # 5.9 K/mm3 (1.8-7.8); Neutrophils % 61.8 % (37.0-80.0); Platelet Count 200 K/mm3 (142-424); Red Blood Count 4.22 M/mm3 (4.20-5.40); Red Cell Distribution Width 16.2 % (11.5-17.5); White Blood Count 9.5 K/mm3 (4.8-10.8)
[2018-11-20 15:15] LABS: Hemoglobin A1C 12.4 % (0.0-7.0)
[2018-11-20 15:18] LABS: Alanine Aminotransferase 18 U/L (12-78); Albumin Level 3.5 gm/dL (3.4-5.0); Alkaline Phosphatase 177 U/L (46-116); Anion Gap 16.1 mEq/L (5-15); Aspartate Amino Transferase 11 U/L (15-37); Bilirubin,Total 0.3 mg/dL (0.2-1.0); Blood Urea Nitrogen 29 mg/dL (7-18); Calcium 9.2 mg/dL (8.5-10.1); Carbon Dioxide 26 mmol/L (21.0-32.0); Chloride 105 mmol/L (98-107); Chol/HDL Ratio 3.3 (1-3.5); Cholesterol 164 mg/dL (140-200); Estimated Glomerular Filt Rate 44 ml/min (>60); GFR (African American) 53 ML/MIN (>60); Globulin 3.6 gm/dl (1.3-3.2); Glucose 75 mg/dL (74-106); HDL Cholesterol 50 mg/dL (29-89); LDL Cholesterol 83 mg/dL (0-130); Potassium 4.1 mmoL/L (3.5-5.1); Sodium 143 mmol/L (136-145); Thyroid Stimulating Hormone 5.42 uIU/ml (0.358-3.740); Total Protein,Serum 7.1 gm/dL (6.4-8.2); Triglycerides 155 mg/dL (30-200); VLDL Cholesterol 31 mg/dL (0-40)
[2018-11-22 15:24] LABS: Microalbumin, Urine 14.6 ug/mL (Not Estab.)
== END ==
PROVIDERS: Visit Provider Internal Medicine
DX: E11.42 Type 2 diabetes mellitus with diabetic polyneuropathy (principal); I10 Essential (primary) hypertension; E11.59 Type 2 diabetes mellitus with other circulatory complications; E78.5 Hyperlipidemia, unspecified; Z79.4 Long term (current) use of insulin
CPT/HCPCS: 36415; 80053; 80061; 82043; 83036; 84443; 85025

== ENCOUNTER → 2018-12-04 10:55 | Outpatient (CLI) | payer MEDICARE, SELFPAY ==
--- NOTE | 2018-12-04 10:59 | FL_ITS ---
EXAM: Barium swallow/esophagram. INDICATION: ITS.REASON: DIFFICULTY SWALLOWING, MID ESOPHAGUS FOOD HANGING ORDERING PHYSICIAN: Geovany Medel PATIENT AGE: 73 years COMPARISON: None TECHNIQUE: In the upright position the patient was observed to swallow barium in both the AP and lateral view. The cervical esophagus was examined under fluoroscopy with images obtained. The patient was then placed prone in the right anterior oblique position and was observed to swallow barium with Valsalva technique . FLUOROSCOPY TIME: 3 minutes and 13 seconds FL barium swallow modified: 12/04/2018 10:59 AM CLINICAL HISTORY: History of stroke with dysphagia ORDERING PHYSICIAN: Geovany Medel PATIENT AGE: 73 years Comparison: None TECHNIQUE: Patient administered varying consistencies of barium contrast, while viewed in lateral position under real-time fluoroscopy with cine recording. FLUOROSCOPY TIME: 3 minutes and 13 seconds The study was performed in conjunction with speech pathologist. Please see that report & recommendations. FINDINGS: Patient was given varying consistencies of barium. There was premature loss of fluid and liquids over base of tongue with minimal vestibular penetration of thin liquids which improved with head turning to the right. No obvious aspiration. IMPRESSION: Minimal vestibular penetration with thin liquids Please see speech pathologist report and recommendations.
--- NOTE | 2018-12-04 12:11 | HMH.SLMBS2 ---
Speech & Language Evaluation Speech/Language Mod Barium Swallow Start: 12/04/18 11:37 Freq: once Status: Complete Protocol: Document 12/04/18 11:37 RAMA (Rec: 12/04/18 12:11 RAMA [id number]) MBS Recommendations Diet Dietary Recommendations Regular Thin Liquids Comment Head turn to right Treatment/Strategies Treatment Recommendation Oral Motor Exercises Base of Tongue Exercises Compens. Strategy Educat. Strategy/Precaution Recommend Sitting Upright (90 deg) No Straw Liquids from Cup Referrals/Other Recommended Referrals GI Consult ENT Consult Other Recommendations Gastrointerology consult recommented to assess feeling of food getting stuck in throat. ENT consult recommended due to vocal quality changes in past two months coinciding with swallowing difficulty. Mod Barium Swallow Impressions Summary and Impressions Oral Phase Impression Mild Impairment Oral Phase Summary Premature loss of food and liquids over base of tongue; Pharyngeal Phase Impression Moderate Impairment Pharyngeal Phase Summary Penetration of thin liquids when not using compensatory strategy. No penetration noted when compensatory strategies were done. Speech/Language MBS Assessment/Goals/Plan Assessment Date of Evaluation: 12/04/18 Evaluation Type Initial Certification Assessment/Problems Pt. reports difficulty swallowing in the past few months. History of Stroke in (2016) and PEG tube placement due to aspiration and aspiration pneumonia. Pt concerned she is aspirating again. Does Patient Qualify for Service Yes Qualify/Failure Comment Ms. Leon participated in MBS today. She was able to communicate her history with therapists. Her was also informed of results and strategies. He reports she has difficulty with memory since her stroke three years
== END ==
PROVIDERS: PCP Internal Medicine; Visit Provider Internal Medicine
DX: R13.10 Dysphagia, unspecified (principal); T18.120A Food in esophagus causing compression of trachea, initial encounter
CPT/HCPCS: 70371; 92611

== ENCOUNTER 2018-12-26 13:08 | Outpatient (RCR) | payer MEDICARE, SELFPAY ==
--- NOTE | 2018-12-26 14:14 | HMH.SLDYSPHA ---
Speech & Language Evaluation Speech/Language Dysphagia Evaluation Start: 12/26/18 13:47 Freq: ONCE Status: Active Protocol: Document 12/26/18 13:47 SHASTA (Rec: 12/26/18 14:14 SHASTA [id number]) Dysphagia Assess/Goals/Plan Assessment Date of Evaluation: 12/26/18 Evaluation Type Initial Certification Assessment/Problems Dysphagia Does Patient Qualify for Service Yes Qualify/Failure Comment Patient was given HEP to complete at home. Will contact CIRCULATION LIBRARIAN in 1 week to determine further therapy needs Recommendations PHYSICIAN CERTIFICATION: The specified therapy services are required, authorized, and reviewed every 30 days. Pt will be seen # times/week 1 for # weeks 4 Diet Recommendations Normal Liquid Type Recommendations Normal/Thin SL Swallow Guidelines Standard Aspiration Prec. Dysphagia Swallow Precautions/Strategies Sitting Upright (90 deg) Turn Head Right Supersupraglottic Swallow No Straw Small Bites and Sips Alternate Liquids/Solids Additional Consults Recommended Other Comment Gastrointerology consult recommended to assess feeling of food getting suck in throat. ENT consult recommendeddue to vocal quality changes in past two months coinciding with swallowing difficulty. Plan Anticipate reaching STG in # weeks 2 Anticipate reaching LTG in # weeks 4 Pt/Guardian verbally ack understanding Yes of dx/prognosis/goals G -code Required Yes G-CODES ST Current Status [id number] ST Current Status Modifier CI-At least 1% but less than 20% impaired, limited or restricted ST Goal Status [id number] ST Goal Status Modifier CI-At least 1% but less than 20% impaired, limited or restricted STG-Bolus Prop/Tongue Movement Take small sip of liq/thick liq after 10 bolus to clear residue in # trials Will pop tongue against hard palate in # 30 trials STG-Bolus Prop/Oral Sensation Use effortful swallowing w/wo cues in # 10 trials STG-Asp Before/Tongue Control Produce a forceful fk/ at the end of 30 words in #trials STG-Asp During/Laryngeal Closure Use head rotation to R/L w/wo cues in # 3 trials
== END 2018-12-26 13:15 | disposition home or self-care (01) ==
LOC: ST 13:08
PROVIDERS: Visit Provider Internal Medicine
DX: R13.10 Dysphagia, unspecified (principal)
CPT/HCPCS: 92610

== ENCOUNTER 2019-01-19 13:30 | Outpatient (RCR) | payer MEDICARE, SELFPAY ==
--- NOTE | 2018-12-29 14:09 | HMH.OTOPEV ---
OT Inpatient Evaluation Rehab OT Outpatient Eval Start: 12/29/18 13:50 Freq: Status: Active Protocol: Document 12/29/18 13:50 RMARSHALL (Rec: 12/29/18 14:08 [facility] [id number] Electronically Signed By Tish Davalos OT 12/29/18 13:50 Outpatient Therapy Subjective History Subjective History Pt is a 73 year old female who reports to therapy for initial evaluation to right hand. 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 Pt was also diagnosed with RA in 2002 which has affected her pain in right hand. Pt explains she has complications with fine motor coordination such as buttoning clothing. Pt has numbness and tingling down into the forearm of the right UE. Pt does have braces that she sleeps in each night , but she does not feel they are helping her pain. Pt is unable to make a fist with the right hand and does have decreased AROM and strength at wrist. Pt will continue to be seen in order to address these deficits. 9 hole peg test results Left hand: 50 seconds Right hand: 65 seconds 9 hole peg test STG Left hand: 40 seconds Right hand: 50 seconds 9 hole peg test LTG Left hand 35 seconds Right hand: 45 seconds Consumer Analyst Strength STG Right: 10 lbs Left: 10 lbs Consumer Analyst strength LTG Right: 20 lbs Left: 15 lbs Chief Complaint Pain Stiff Weakness Decreased Consumer Analyst Strength Decreased Coordination Symptom Type Ache Throb Sharp Dull Stabbing
== END 2019-01-19 13:35 | disposition home or self-care (01) ==
LOC: OT 13:30
PROVIDERS: Visit Provider Specialist
DX: R29.898 Other symptoms and signs involving the musculoskeletal system (principal); R20.2 Paresthesia of skin; G56.91 Unspecified mononeuropathy of right upper limb
CPT/HCPCS: 97110; 97140; 97166

== ENCOUNTER → 2019-02-01 12:03 | Outpatient (CLI) | payer MEDICARE, SELFPAY ==
[2019-02-02 14:42] LABS: Vitamin B12 413 pg/mL (232-1245)
== END ==
PROVIDERS: Visit Provider Specialist
DX: G56.91 Unspecified mononeuropathy of right upper limb (principal); R20.2 Paresthesia of skin; R29.898 Other symptoms and signs involving the musculoskeletal system
CPT/HCPCS: 36415; 82607

== ENCOUNTER → 2019-03-05 10:40 | Outpatient (POV) | payer MEDICARE, SELFPAY | PROVIDERS: Visit Provider Specialist | DX: R20.2 Paresthesia of skin (principal); R29.898 Other symptoms and signs involving the musculoskeletal system; G56.91 Unspecified mononeuropathy of right upper limb | CPT/HCPCS: 95886; 95908 ==

== ENCOUNTER 2019-03-09 15:19 | Emergency (ER) | payer MEDICARE, SELFPAY ==
[2019-03-09 15:20] VITALS: BP 122/64; PULSE 73; RESP 22; TEMP 37.1; O2SAT 95; BMI 30.7
--- NOTE | 2019-03-09 15:39 | XR_ITS ---
XR chest 2V HISTORY: ITS.REASON: COUGH ORDERING PHYSICIAN: INGRID Recinos PATIENT AGE: 73 years COMPARISON: 11/08/2018 FINDINGS: Mild cardiomegaly without failure. Bipolar pacemaker is present from left subclavian approach.. There are fibrotic changes in the left mid to lower lung zone. Patchy densities present in the right lung base may be due to an area of atelectasis or infiltrate. There are degenerative changes of the thoracic spine. IMPRESSION: Chronic changes with atelectasis or infiltrate in the right lung base
--- NOTE | 2019-03-09 15:54 | HMH.EDUTC ---
[facility] [place] Disposition Clinical Impression: Pneumonia Qualifiers: Pneumonia type: due to unspecified organism Laterality: right Lung location: upper lobe of lung Qualified Code(s): J18.1 - Lobar pneumonia, unspecified organism Disposition: Home, Self-Care Condition on Discharge: Good Instructions: Pneumonia-Adult Prescriptions: levoFLOXacin [Levaquin 500mg tab] 500 mg PO DAILY #10 tab methylPREDNISolone [Medrol] 4 mg PO DIRECTED 6 Days #1 tab.ds.pk Guaifenesin/Dextromethorphan [Mucinex Dm ER 1,200-60 mg Tab] 1 tab PO BID 10 Days #20 tab Referrals: Geovany Medel [Primary Care Provider] - Time of Disposition: 16:51 Medical Decision Making - Abraham Inquiry Pt receiving controlled substance: No Vital Signs: 03/09/19 15:20 Temperature 98.7 F Temperature Source Oral Pulse Rate [Left Radial] 73 Respiratory Rate 22 Blood Pressure [Right Arm] 122/64 Blood Pressure Mean [Right Arm] 83 Blood Pressure Source [Right Arm] Automatic Cuff Blood Pressure Position [Right Arm] Sitting 02 Sat by Pulse Oximetry 95 Oxygen Delivery Method Room Air Orders (Tests/Meds): ED MEDICATIONS Discontinued Medications Generic Name Dose Route Start Last Admin Trade Name Freq PRN Reason Stop Dose Admin Albuterol/Ipratropium 3 ml 03/09/19 15:42 03/09/19 15:56 Duoneb 3ml Neb IH 03/09/19 15:43 3 ml ONCE ONE Administration ORDERS Category Date Time Status Chest XR 2 view (NOT portable) [XR chest 2V] Stat Exams 03/09/19 15:39 Taken - Radiology Data #1 Image(s): Chest Image Reviewed: Yes I reviewed the patient's radiology image [facility] [place] HPI - General Stated complaint: Cough Time Seen by Provider: 03/09/19 15:54 Mode of Arrival: Ambulatory Source of Information: Patient Limitations: No Limitations Description of Symptoms (Recalled from Triage Doc. by RN): COUGH, CONGESTION, ASTHMA, BRONCHITIS HEENT Symptoms (Recalled from RN notes): Yes Resp Symptoms (Recalled from RN notes): Yes Skin Symptoms (Recalled from RN notes): No MS Symptoms (Recalled from RN notes): No Functional Status (Recalled from RN notes): WNL - History of Present Illness Provider Complaint: Patient has had cough and congestion X 1 week. Has had fever. Has been on Amoxicillin and Prednisone since Tuesday by PCP. Is still coughing, to the point of choking/gagging. Sputum is green. Has h/o COPD. Onset (ago): day(s) (6) Location: chest Relieving factors: none Exacerbating factors: none Associated symptoms: cough Treatments prior to arrival: other (Prednisone, Amoxil) - Related Data Home Medications Medication Instructions Recorded Confirmed Apixaban [Eliquis 5mg tab] 5 mg PO BID 01/06/18 12/11/18 Atorvastatin Calcium [Atorvastatin 40 mg PO HS 01/06/18 12/11/18 40mg Tab] Bisoprolol Fumarate [Zebeta] 10 mg PO DAILY 01/06/18 12/11/18 Furosemide [Furosemide 40MG tAB] 40 mg PO DAILYP PRN 01/06/18 12/11/18 Melatonin 10 mg PO HS 01/06/18 12/11/18 Pantoprazole Sodium [Protonix 40mg 40 mg PO DAILY 01/06/18 12/11/18 (granule) packet] Polyethylene Glycol 3350 [Miralax 17 gm PO DAILY 01/06/18 12/11/18 Powder] Potassium Chloride [Klor-con 20 20 meq PO BID 01/06/18 12/11/18 mEq tablet] acetaminophen 325 mg capsule 500 mg PO BID 02/07/18 12/11/18 fentanyl 50 mcg/hr transdermal 1 patch TRANSDERMA Q72H 02/07/18 12/11/18 patch insulin aspart U-100 100 unit/mL 13 unit SUB-Q QID 02/07/18 12/11/18 subcutaneous solution Insulin Detemir [Levemir 100 0 units SQ DAILY 05/05/18 12/11/18 units/mL 10mL vial] Insulin Detemir [Levemir 100 40 unit SQ HS 05/05/18 12/11/18 units/mL 10mL vial] Oxycodone HCl [Oxycodone (IR) 10mg 10 mg PO BID 06/08/18 12/11/18 Tab] Previous Rx's Medication Instructions Recorded ALPRAZolam [Xanax 0.5mg tab] 0.5 mg PO TID PRN 30 Days tab 05/08/18 Gabapentin [Gabapentin 800mg Tab] 800 mg PO TID #90 tab 05/08/18 Guaifenesin/Dextromethorphan 1 tab PO BID 10 Days #20 tab 03/09/19
[2019-03-09 16:58] VITALS: BP 122/64; PULSE 73; RESP 22; TEMP 37.1; O2SAT 95
== END 2019-03-09 16:59 | disposition home or self-care (01) ==
PROVIDERS: Emergency Provider Physician Assistant; PCP Internal Medicine
DX: J18.1 Lobar pneumonia, unspecified organism (principal); E11.9 Type 2 diabetes mellitus without complications; Z79.4 Long term (current) use of insulin; M79.7 Fibromyalgia; J44.9 Chronic obstructive pulmonary disease, unspecified; I48.2 Chronic atrial fibrillation; Z88.2 Allergy status to sulfonamides; Z88.6 Allergy status to analgesic agent
CPT/HCPCS: G0463; 71046; 96372; 99202

== ENCOUNTER → 2019-03-21 12:59 | Outpatient (CLI) | payer MEDICARE, SELFPAY ==
--- NOTE | 2019-03-21 13:05 | CI_ITS ---
Cerebrovascular Exam Indications: 780.4 Dizziness and giddiness. IMPRESSIONS 1. The bilateral vertebral arteries are patent with normal antegrade flow. 2. Study suggests less than 20% stenosis involving the right internal carotid artery and the left internal carotid artery. 3. Right thyroid cyst. Carotid duplex study. Complete study and Doppler flow study including spectral analysis, color and green scale imaging. Height: Height: 162.6cm. Height: 64in. Weight: Weight: 80.7kg. Weight: 177.6lb. Body mass index: BMI: 30.6kg/m^2. Body surface area: BSA: 1.94m^2. Location: Vascular laboratory. Patient status: Outpatient. Incidental findings: A thyroid cyst in the right lobe is noted incidentally. Tables: Arterial flow: + +--------+--------+ Location V sys V ed + +--------+--------+ Right CCA - proximal 95.1cm/s 20.4cm/s + +--------+--------+ Right CCA - distal 66.8cm/s 20.4cm/s + +--------+--------+ Right ECA 87.4cm/s -------- + +--------+--------+ Right ICA - proximal 61.9cm/s 15.7cm/s + +--------+--------+ Right ICA - mid 49.6cm/s 21.6cm/s + +--------+--------+ Right ICA - distal 83.6cm/s 35.2cm/s + +--------+--------+ Right vertebral 31.7cm/s -------- + +--------+--------+ Left CCA - proximal 91.1cm/s 25.8cm/s + +--------+--------+ Left CCA - distal 81.7cm/s 25.8cm/s + +--------+--------+ Left ECA 99.9cm/s -------- + +--------+--------+ Left ICA - proximal 90.5cm/s 26.4cm/s + +--------+--------+ Left ICA - mid 79.2cm/s 35.2cm/s + +--------+--------+ Left ICA - distal 86.1cm/s 39cm/s + +--------+--------+ Left vertebral 46.5cm/s -------- + +--------+--------+ Velocity ratios: + + + + + + Right, V sys Right, V ed Left, V sys Left, V ed + + + + + + Max ICA/dist CCA 1.25 1.73 1.11 1.51 + + + + + + (Report amended ) Electronically signed by: Ravinder Smith [id number]
== END ==
PROVIDERS: PCP Internal Medicine; Visit Provider Internal Medicine
DX: G45.3 Amaurosis fugax (principal)
CPT/HCPCS: 93880

== ENCOUNTER 2019-03-23 10:07 | Day surgery (SDC) | payer MEDICARE, SELFPAY ==
[2019-03-20 14:25] VITALS: BMI 29.9
[2019-03-23] VITALS (10 sets, daily range): BP systolic 94–129; BP diastolic 54–82; PULSE 74–80; RESP 12–16; TEMP 36.2–36.4; O2SAT 93–97
[2019-03-23 10:54] LABS: POC Glucose,Bedside 298 (70-110)
--- NOTE | 2019-03-23 10:57 | HMH.ANESCL ---
[facility] Anesthesia Checklist - Patient Identification Patient Identification: Arm Band - Structural Data Admitted From: Home Planned Operative Procedure/s: egd Consent for Planned Operative Procedure(s) Verified: Yes Verified Documents: Surgical Consent, History and Physical - NPO Status Verified Time NPO: 00:00 - Additional verifications Anesthesia Reactions: No - Airway Assessment C-Spine Mobility Assessed: Yes (mp2) TMJ Mobility Assessed: Yes Dentition: Poor Dentition - Neurological Assessment Level of Consciousness: Awake, Alert - Anesthesia Plan Anesthesia Risk discussed: Yes Anesthesia Plan: Verified ASA Class: III Anesthesia Type: MAC [facility] History I have reviewed the patient's past medical history: Yes Medical History: Reports:: Aneurysm, Asthma, Atrial Fibrillation, Chronic Obstructive Pulmonary Disease (COPD), Cerebrovascular Accident, Diabetes Mellitus Type 2, Hypertension, Internal Pacemaker, Lung Disease (ASTHMA COPD), Renal Disease, Seizures (with medication reaction), Transient Ischemic Attacks (TIA), Tuberculosis Denies:: Cancer, Diabetes Mellitus Type 1, MRSA *Have you ever received a pneumonia vaccine?: Yes *Have you received a flu vaccine this season?: Yes Other Medical History: Reports: Arthritis, Cataracts, Fibromyalgia Laterality Cases: Other Surgeries: Yes: Cancer Surgery, Cardiac Catheterization, Colonoscopy, Colon Resection, Hysterectomy-Total, Pacemaker Amputation: No Fractures: No - *Social History Smoking Status: Never smoker Alcohol Intake: never Alcohol Intake Frequency:: other Substance Use Type: denies use *Occupational Status:: retired Housing: house Household Members: spouse *Travel in the last 8 weeks: None Family Hx:: Cancer, Hyperlipidemia, Diabetes, Heart Attack, Hypertension, Kidney Disease, Stroke, Thyroid Disorder, Tuberculosis, Asthma
[2019-03-23 11:51] LABS: POC Glucose,Bedside 228 (70-110)
--- NOTE | 2019-03-23 11:59 | P.PCN_ITS ---
[facility] Procedure Note Procedure Note:: Upper Endoscopy Procedure Report: Esophagogastroduodenoscopy with cold biopsies and TTS balloon dilation Endoscopost: Hector Tristan II, MD Referring Physician: Geovany Medel MD Date of Procedure: March 23, 2019 Equipment: Olympus GIF 180 standard upper endoscope Sedation: MAC sedation Indications: Mrs. Leon is a 73-year-old female with prior cerebrovascular accident/stroke. This was in late 2016 and she had some esophageal swallowing difficulties contributing to aspiration and required a PEG tube placement. This was subsequently removed. The patient does report food getting hung up or stuck in the proximal esophagus/retro-hyoid region. She does have periodic aspiration of fluids. She will have moderate choking. She did have pharyngeal dilation years ago and had seen Dr. Manning. The patient reports no abdominal pain, bloating, belching, heartburn. She does get a knot in her throat/globus sensation. She does have some painful swallowing/odontophagia. She has had some minor weight loss. Procedure: Prior to the procedure, a history and physical exam was performed, and patient's medications and allergies were reviewed. The risks, benefits and alternatives of the sedation and procedure were discussed with the patient. All questions were answered and informed consent was obtained. The patient was brought to the procedure room. Patient identification and proposed procedure were verified by the physician and the nurse. The patient was placed in a left lateral decubitus position and the scope was passed under direct vision. Throughout the procedure, the patient's blood pressure, pulse, and oxygen saturations were monitored continuously. The upper GI endoscopy was accomplished without difficulty. The patient tolerated the procedure well. Findings: The scope was passed directly into the upper esophagus and advanced to the third portion of the duodenum. The post bulbar duodenum and duodenal bulb were normal with normal mucosa and conniventes. There was moderate duodenal lymphoid stasis. The scope was withdrawn through a normal duodenal bulb and pylorus into the stomach. There was some linear reactive gastropathy of the antrum. The remainder of the antrum, body and fundus of the stomach were grossly normal. Upon retroflexion there was no hiatal hernia. 2 biopsies were taken in the antrum and along the lesser curvature for histology to rule out gastritis and/or H pylori. The scope was then withdrawn into the esophagus. There was no evidence of Schatzki's ring, Browning's esophagus or reflux esophagitis. There were some tertiary contractions and mild dysmotility. There was some whitish plaque that was very mild and biopsies were obtained from the middle esophagus to rule out mild candidal esophagitis. There was no corrugation and no evidence of eosinophilic esophagitis. The entire esophagus was dilated to 60 Icelandic/20 mm with a TTS hydrostatic balloon. The remainder of the esophageal mucosa was normal. Impression: 1. Moderate esophageal dysmotility with some minimal whitish plaque (rule out mild candidal esophagitis) 2. Very mild linear reactive gastropathy 3. Duodenal lymphoid stasis Plan: I do feel the patient's dysphagia is primarily pharyngeal dysphagia and probably is related to her prior CVA. I would consider modified barium swallow and referral to speech pathology for treatment/swallowing exercises.
== END 2019-03-23 13:06 | disposition home or self-care (01) ==
LOC: OUTP 10:08
PROVIDERS: PCP Internal Medicine; Visit Provider Internal Medicine Gastroenterology
PROC: 0DJ08ZZ Inspection of Upper Intestinal Tract, Via Natural or Artificial Opening Endoscopic (ICD-10-PCS; CPT 43235; principal; 2019-03-23 11:00)
DX: K22.4 Dyskinesia of esophagus (principal); K22.8 Other specified diseases of esophagus; K31.9 Disease of stomach and duodenum, unspecified; K21.0 Gastro-esophageal reflux disease with esophagitis; E11.9 Type 2 diabetes mellitus without complications; I69.391 Dysphagia following cerebral infarction; T18.12 Food in esophagus
CPT/HCPCS: 43239; 43249; 82962; 88305; C1726

== ENCOUNTER → 2019-05-02 19:44 | Outpatient (CLI) | payer MEDICARE, SELFPAY | PROVIDERS: PCP Internal Medicine; Visit Provider Specialist | DX: G47.30 Sleep apnea, unspecified (principal); R06.83 Snoring; E66.9 Obesity, unspecified | CPT/HCPCS: 95810 ==

== ENCOUNTER → 2019-05-25 14:41 | Outpatient (CLI) | payer MEDICARE, SELFPAY ==
--- NOTE | 2019-05-25 14:46 | XR_ITS ---
PROCEDURE: XR KNEE LT 3V CLINICAL INDICATION: LT KNEE PAIN COMPARISON: HIP2L HIP-2 VIEWS-LT from 05/12/2015 KNEE3L KNEE-3 VIEWS-LT from 05/12/2015 FINDINGS: No fracture or dislocation. No lytic or blastic change. There is normal mineralization. Tricompartmental osteoarthritic changes are present. Spurring is present at the intercondylar region of the distal femur versus an old avulsion injury. This did have a similar appearance on the previous exam. Other findings:Vascular calcifications IMPRESSION: Osteoarthritis, no acute finding Dictated by: Ravinder Smith MD 05/25/2019 15:16 Signed by: <Electronically signed by Ravinder Smith MD in [place]> 05/25/2019 15:16
== END ==
PROVIDERS: PCP Internal Medicine; Visit Provider Internal Medicine
DX: M25.562 Pain in left knee (principal)
CPT/HCPCS: 73562

== ENCOUNTER → 2019-07-13 12:54 | Outpatient (CLI) | payer MEDICARE, SELFPAY ==
--- NOTE | 2019-07-13 12:58 | US_ITS ---
PROCEDURE: US KIDNEY CLINICAL INDICATION: RECURRENT UTI, NEUROGENIC BLADDER Urinary tract infection COMPARISON: No exams were available for comparison FINDINGS: The kidneys are normal size shape and position. No hydronephrosis renal mass or perinephric fluid. No significant cortical thinning. IMPRESSION: Negative bilateral renal ultrasound Dictated by: Ravinder Smith MD 07/13/2019 18:08 Electronically signed by Ravinder Smith MD in [place] 07/13/2019 18:08
--- NOTE | 2019-07-13 12:58 | US_ITS ---
PROCEDURE: US URINARY BLADDER CLINICAL INDICATION: RECURRENT UTI, NEUROGENIC BLADDER COMPARISON: No exams were available for comparison FINDINGS: Urinary bladder has an unremarkable appearance with a full bladder volume estimated to be 514 mL. No obvious mass or filling defects demonstrated. Postvoid volume is calculated to be 58 cc. IMPRESSION: Mild amount of postvoid residual urine within the urinary bladder otherwise negative bladder ultrasound a Dictated by: Ravinder Smith MD 07/13/2019 18:09 Electronically signed by Ravinder Smith MD in [place] 07/13/2019 18:09
== END ==
PROVIDERS: PCP Internal Medicine; Visit Provider Internal Medicine
DX: N31.9 Neuromuscular dysfunction of bladder, unspecified (principal); N39.0 Urinary tract infection, site not specified
CPT/HCPCS: 76770; 76857

== ENCOUNTER 2019-10-02 15:00 | Outpatient (RCR) | payer MEDICARE, SELFPAY | END 2019-10-02 15:05 | disposition home or self-care (01) | LOC: PT 15:00 | PROVIDERS: PCP Internal Medicine; Visit Provider Physician Assistant Surgical | DX: M25.562 Pain in left knee (principal) | CPT/HCPCS: 97010; 97016; 97035; 97110; 97163; 97164 ==

== ENCOUNTER → 2019-10-25 20:08 | Outpatient (CLI) | payer MEDICARE, SELFPAY | PROVIDERS: PCP Internal Medicine; Visit Provider Nurse Practitioner Family | DX: G47.33 Obstructive sleep apnea (adult) (pediatric) (principal); G47.00 Insomnia, unspecified; G89.4 Chronic pain syndrome; I50.9 Heart failure, unspecified | CPT/HCPCS: 95811 ==

== ENCOUNTER → 2019-10-29 16:06 | Outpatient (CLI) | payer MEDICARE, SELFPAY ==
[2019-10-29 16:10] LABS: Microscopic, Urine URINE MICROSCOPIC (MICROSCOPIC)
[2019-10-29 16:53] LABS: Basophils % 0.4 % (0.1-2.0); Eosinophils # 0.3 K/mm3 (0.0-0.4); Eosinophils % 3.4 % (0.1-12.0); Hematocrit 35.7 % (37.0-47.0); Hemoglobin 10.7 g/dL (12.2-16.2); Lymphocytes # 3.3 K/mm3 (0.7-4.5); Lymphocytes % 37.3 % (10-50); Mean Corpuscular HGB Conc 29.8 g/dL (31.8-35.4); Mean Corpuscular Volume 93.9 fl (81-99); Mean Platelet Volume 8.8 fl (7.4-10.4); Monocytes # 0.4 K/mm3 (0.1-1.0); Monocytes % 4.8 % (1.7-9.3); Neutrophils # 4.8 K/mm3 (1.8-7.8); Neutrophils % 54.2 % (37.0-80.0); Platelet Count 213 K/mm3 (142-424); Red Cell Distribution Width 15.5 % (11.5-17.5); White Blood Count 8.9 K/mm3 (4.8-10.8)
[2019-10-29 17:12] LABS: Appearance,Urine CLEAR (Clear); Bilirubin,Urine Negative (Negative); Blood, Urine TRACE-L (Negative); Color,Urine YELLOW (Yellow); Glucose,Urine (UA) TRACE (Negative); Ketones,Urine TRACE (Negative); Leukocyte Esterase,Urine 1+ (Negative); Nitrate,Urine Negative (Negative); Protein,Urine Negative (Negative); Specific Gravity, Urine 1.015 (1.005-1.030); Urobilinogen,Urine 0.2 EU/dl (0.2)
[2019-10-29 17:14] LABS: Blood Urea Nitrogen 20 mg/dL (7-18); Calcium 8.6 mg/dL (8.5-10.1); Carbon Dioxide 30 mmol/L (21.0-32.0); Chloride 100 mmol/L (98-107); Creatinine,Serum 2.12 mg/dL (0.55-1.02); Estimated Glomerular Filt Rate 23 ml/min (>60); GFR (African American) 28 ML/MIN (>60); Glucose 230 mg/dL (74-106); Sodium 138 mmol/L (136-145)
[2019-10-29 17:18] LABS: Bacteria,Urine Trace /lpf; RBC,Urine Occasional #/hpf (0-3)
== END ==
PROVIDERS: Visit Provider Internal Medicine
DX: E11.42 Type 2 diabetes mellitus with diabetic polyneuropathy (principal); I10 Essential (primary) hypertension; Z79.4 Long term (current) use of insulin; R82.90 Unspecified abnormal findings in urine
CPT/HCPCS: 36415; 80048; 81001; 85025; 87086; G0463

== ENCOUNTER → 2019-11-16 15:46 | Outpatient (CLI) | payer MEDICARE, SELFPAY ==
[2019-11-16 16:33] LABS: Basophils % 0.3 % (0.1-2.0); Eosinophils # 0.3 K/mm3 (0.0-0.4); Eosinophils % 3.1 % (0.1-12.0); Hematocrit 36.1 % (37.0-47.0); Lymphocytes # 2.3 K/mm3 (0.7-4.5); Mean Corpuscular HGB Conc 30.5 g/dL (31.8-35.4); Mean Corpuscular Hemoglobin 28.9 pg (27.0-31.2); Mean Corpuscular Volume 94.7 fl (81-99); Mean Platelet Volume 8.9 fl (7.4-10.4); Monocytes # 0.4 K/mm3 (0.1-1.0); Monocytes % 4.1 % (1.7-9.3); Neutrophils # 6.1 K/mm3 (1.8-7.8); Neutrophils % 67.6 % (37.0-80.0); Platelet Count 204 K/mm3 (142-424); Red Blood Count 3.81 M/mm3 (4.20-5.40); Red Cell Distribution Width 15.9 % (11.5-17.5)
[2019-11-16 17:54] LABS: Alanine Aminotransferase 14 U/L (9-52); Albumin Level 3.1 g/dL (3.4-5.0); Albumin/Globulin Ratio 0.9 (1.1-1.8); Alkaline Phosphatase 114 U/L (46-116); Aspartate Amino Transferase 19 U/L (15-37); Bilirubin,Total 0.4 mg/dL (0.2-1.0); Blood Urea Nitrogen 18 mg/dL (7-18); C-Reactive Protein 0.9 mg/dL (0.0-0.9); Calcium 8.5 mg/dL (8.5-10.1); Chloride 104 mmol/L (98-107); Creatinine,Serum 1.16 mg/dL (0.55-1.02); Estimated Glomerular Filt Rate 46 ml/min (>60); GFR (African American) 55 ML/MIN (>60); Globulin 3.6 gm/dl (1.3-3.2); Glucose 244 mg/dL (74-106); Potassium 4.4 mmoL/L (3.5-5.1); Sodium 143 mmol/L (137-145); Total Protein,Serum 6.7 g/dL (6.4-8.2)
[2019-11-16 18:20] LABS: Anion Gap 13.4 mEq/L (5-15); Carbon Dioxide 30 mmol/L (21.0-32.0)
[2019-11-16 19:00] LABS: Erythrocyte Sedimentation Rate 73 mm/hr (0-30)
[2019-11-19 20:59] LABS: Hep Be Ag Negative (Negative); Hepatitis B Surf Ab Quant <3.1 mIU/mL (Immunity>9.9); Hepatitis C Antibody 0.1 s/co ratio (0.0-0.9); RA Latex Turbid. <10.0 IU/mL (0.0-13.9)
[2019-11-23 07:42] LABS: Anti-Cyclic Citrullinated Pept 9 units (0-19)
== END ==
PROVIDERS: Visit Provider Internal Medicine Rheumatology
DX: M05.79 Rheumatoid arthritis with rheumatoid factor of multiple sites without organ or systems involvement (principal); Z79.899 Other long term (current) drug therapy
CPT/HCPCS: 36415; 80053; 85025; 85651; 86140; 86200; 86431; 86706; 87350; 87380

== ENCOUNTER → 2019-12-13 20:09 | Outpatient (CLI) | payer MEDICARE, SELFPAY | PROVIDERS: PCP Internal Medicine; Visit Provider Nurse Practitioner Family | DX: G47.33 Obstructive sleep apnea (adult) (pediatric) (principal) | CPT/HCPCS: 95811 ==

== ENCOUNTER 2019-12-22 21:07 | Observation (INO) ==
[2019-12-22 22:07] LABS: Basophils % 0.4 % (0.1-2.0); Eosinophils # 0.2 K/mm3 (0.0-0.4); Eosinophils % 2.3 % (0.1-12.0); Hematocrit 41.4 % (37.0-47.0); Hemoglobin 12.9 g/dL (12.2-16.2); Lymphocytes % 40.3 % (10-50); Mean Corpuscular HGB Conc 31.1 g/dL (31.8-35.4); Mean Corpuscular Volume 92.8 fl (81-99); Monocytes # 0.4 K/mm3 (0.1-1.0); Monocytes % 5.6 % (1.7-9.3); Neutrophils # 3.8 K/mm3 (1.8-7.8); Neutrophils % 51.4 % (37.0-80.0); Platelet Count 217 K/mm3 (142-424); Red Blood Count 4.47 M/mm3 (4.20-5.40); Red Cell Distribution Width 15.4 % (11.5-17.5); White Blood Count 7.4 K/mm3 (4.8-10.8)
[2019-12-22 22:08] LABS: Chloride 98 mmol/L (98-107); Sodium 139 mmol/L (136-145)
[2019-12-22 22:11] LABS: Blood Urea Nitrogen 31 mg/dl (7-17)
[2019-12-22 22:12] LABS: Anion Gap 15.6 mEq/L (5-15); Calcium 9.3 mg/dl (8.4-10.2); Carbon Dioxide 30 mmol/L (22.0-30.0); Glucose 179 mg/dl (74-100)
[2019-12-22 22:28] LABS: ABG Base Excess 2.8 mmol/L (-2.4-2.3); ABG HCO3 27.8 mmhg (22.0-26.0); ABG Oxygen Saturation 89 % (90-100); ABG PCO2 46.7 mmhg (35.0-45.0); ABG PH 7.39 mmol/L (7.35-7.45); ABG PO2 53.5 mmhg (80-100); ABG TCO2 29.2 mmhg (23-27)
--- NOTE | 2019-12-22 22:28 | Emergency Department Note ---
ED Disposition Clinical Impression: EREN (acute kidney injury), Bronchitis Asthma with exacerbation Qualifiers: Asthma severity: moderate Asthma persistence: unspecified Qualified Code(s): J45.901 - Unspecified asthma with (acute) exacerbation Disposition: Admitted as Observation Condition on Discharge: Good - Critical Care Critical Care Time: No Attestation: On 12/22/19, the high probability of a clinically significant, sudden or life threatening deterioration of the following system(s) required my full and direct attention, intervention and personal management. The time I documented below is in addition to time spent performing reported procedures but includes the following listed in this critical care notation. Medical Decision Making - Medical Records Medical records reviewed: Yes: I reviewed the patient's medical records. - Abraham Inquiry Pt receiving controlled substance: No Vital Signs: 12/22/19 21:29 12/22/19 21:37 12/22/19 22:37 Temperature 99.8 F H Temperature Source Oral Pulse Rate [Right Brachial] 84 82 81 Respiratory Rate 24 18 16 Blood Pressure [Right Arm] 149/101 H 134/74 118/80 Blood Pressure Mean [Right Arm] 117 94 92 Blood Pressure Source [Right Arm] Automatic Cuff Automatic Cuff Automatic Cuff Blood Pressure Position [Right Arm] Sitting Sitting Sitting 02 Sat by Pulse Oximetry 96 89 L 94 L Oxygen Delivery Method Room Air Room Air Room Air 12/22/19 23:00 Temperature Temperature Source Pulse Rate [Right Brachial] 84 Respiratory Rate 18 Blood Pressure [Right Arm] 114/78 Blood Pressure Mean [Right Arm] 90 Blood Pressure Source [Right Arm] Automatic Cuff Blood Pressure Position [Right Arm] Supine 02 Sat by Pulse Oximetry 95 Oxygen Delivery Method Room Air - Lab Data Lab results reviewed: Yes: I reviewed the patient's lab results. Lab Results 12/22/19 21:20: WBC 7.4, RBC 4.47, Hgb 12.9, Hct 41.4, MCV 92.8, MCH 28.9, MCHC 31.1 L, RDW 15.4, Plt Count 217, MPV 9.0, Neut % (Auto) 51.4, Lymph % (Auto) 40.3, [place] % (Auto) 5.6, Eos % (Auto) 2.3, Baso % (Auto) 0.4, Neut # (Auto) 3.8, Lymph # (Auto) 3.0, [place] # (Auto) 0.4, Eos # (Auto) 0.2, Baso # (Auto) 0.0 12/22/19 21:20: Sodium 139, Potassium 4.6, Chloride 98, Carbon Dioxide 30, Anion Gap 15.6 H, BUN 31 H, Creatinine 1.50 H, Estimated Creat Clear 43, Estimated GFR 34 L, Est GFR ( Amer) 41 L, Glucose 179 H, Calcium 9.3, Troponin I < 0.01 12/22/19 21:20: Lactate 2.3 H 12/22/19 21:20: Influenza Type A Ag Negative, Influenza Type B Ag Negative 12/22/19 21:20: Group A Strep Rapid Negative 12/22/19 22:27: Specimen Source R/r, O2 % R/a, ABG pH 7.39, ABG pCO2 46.7 H, ABG pO2 53.5 L, ABG HCO3 27.8 H, ABG Total CO2 29.2 H, ABG O2 Saturation 89 L, ABG Base Excess 2.8 H, Ravinder Test Y Result diagrams: 12/22/19 21:20 12/22/19 21:20 Orders (Tests/Meds): ED MEDICATIONS Generic Name Dose Route Start Last Admin Trade Name Freq PRN Reason Stop Dose Admin Sodium Chloride 1,000 mls @ 999 mls/hr 12/22/19 22:30 12/22/19 22:30 Sod Chlor 0.9% 1000ml Bag IV 12/22/19 23:30 999 mls/hr .Q1H1M DENISE Administration Azithromycin 500 mg/ Sodium 250 mls @ 250 mls/hr 12/23/19 00:30 Chloride IV 01/06/20 00:29 Q24H DENISE Protocol Ceftriaxone Sodium 1 gm/ 50 mls @ 100 mls/hr 12/23/19 00:30 Sodium Chloride IV 01/06/20 00:29 Q24H DENISE Protocol Discontinued Medications Generic Name Dose Route Start Last Admin Trade Name Freq PRN Reason Stop Dose Admin Albuterol/Ipratropium 3 ml 12/22/19 22:11 12/22/19 22:14 Duoneb 3ml Neb IH 12/22/19 22:12 3 ml ONCE ONE Administration Methylprednisolone Sodium Succinate 125 mg 12/22/19 22:11 12/22/19 22:14 Solu-Medrol 125mg/2ml Vial IV 12/22/19 22:12 125 mg ONCE ONE Administration ORDERS Category Date Time Status XR chest 2V Stat Exams 12/22/19 21:58 Taken Troponin I Q3H Lab 12/23/19 01:00 Ordered Troponin I Q3H Lab 12/23/19 04:00 Ordered Blood Culture Stat Micro 12/22/19 21:20 Received Strep Screen Confirmation Stat Micro 12/22/19 21:20 Received Arterial Blood Gas Stat RT 12/22/19 21:58 Ordered - Radiology Data #1 Image(s): Chest Image Reviewed: Yes I reviewed the patient's radiology image Preliminary Findings: Normal/NAD - ECG Data Tracing #1 Arrhythmias present: other (paced) Ischemic changes: non-specific ST-T wave changes - Physician Consults Physician Consulted: dahlia Reason -: Admission Resp/SOB HPI - General Chief Complaint: Shortness of Breath/Dyspnea Stated Complaint: fever,SOB, Time Seen by Provider: 12/22/19 21:40 Mode of Arrival: Family Vehicle Source of Information: Patient, Medical Record Limitations: No Limitations Description of Symptoms (Recalled from ER Triage Doc. by RN): c/o SHORTNESS OF BREATH,ASTHMA HX.FEVER OR 101.8 AT HOME,AND PRODUCTIVE COUGH WITH GREEN SPUTUM AND BODY ACHES X 2 DAYS - History of Present Illness progressive sob and prod cough with fever over the last few days - has hx of asthma and using nebulizer but has continued to be sob and no known exposure to covid-19 Complaint: shortness of breath Onset (ago): day(s) Severity: moderate Known history of: asthma Associated symptoms: fever, cough Treatment prior to arrival: bronchodilator - Related Data Home oxygen amount: none Home Medications Medication Instructions Recorded Confirmed Atorvastatin Calcium [Atorvastatin 40 mg PO HS 01/06/18 12/22/19 40mg Tab] Bisoprolol Fumarate [Zebeta] 10 mg PO DAILY 01/06/18 12/22/19 Furosemide [Furosemide 40MG tAB] 40 mg PO DAILYP PRN 01/06/18 12/22/19 Melatonin 10 mg PO HS 01/06/18 12/22/19 Pantoprazole Sodium [Protonix 40mg 40 mg PO DAILY 01/06/18 12/22/19 (granule) packet] polyethylene glycoL 3350 [Miralax 17 gm PO DAILY 01/06/18 12/22/19 Powder] acetaminophen 325 mg capsule 500 mg PO BID 02/07/18 12/22/19 fentanyl 50 mcg/hr transdermal 1 patch TRANSDERMA Q72H 02/07/18 12/22/19 patch apixaban 5 mg tablet 10 mg PO BID tab 07/23/19 12/22/19 insulin aspart U-100 100 unit/mL 18 unit SQ QID ml 11/29/19 12/22/19 subcutaneous solution insulin glargine 100 unit/mL 75 unit SQ HS ml 11/29/19 12/22/19 subcutaneous solution leflunomide 10 mg tablet 10 mg PO DAILY tab 11/29/19 12/22/19 oxycodone 10 mg tablet 10 mg PO Q4H tab 11/29/19 12/22/19 Previous Rx's Medication Instructions Recorded ALPRAZolam [Xanax 0.5mg tab] 0.5 mg PO TID PRN 30 Days tab 05/08/18 Gabapentin [Gabapentin 800mg Tab] 800 mg PO TID #90 tab 05/08/18 Allergies Allergy/AdvReac Type Severity Reaction Status Date / Time amitriptyline [From Elavil] Allergy Severe I-[id number]/THROAT; Verified 12/22/19 22:13 SEIZURES chlorpromazine Allergy Severe SEIZURES Verified 12/22/19 22:13 [From Thorazine] dichloralphenazone Allergy Severe S-SWELLS-OR Verified 12/22/19 22:13 [From Midrin] AL/THROAT isometheptene [From Midrin] Allergy Severe S-SWELLS-OR Verified 12/22/19 22:13 AL/THROAT prochlorperazine Allergy Severe SEIZURES Verified 12/22/19 22:13 [From Compazine] adhesive tape Allergy Intermediate I-RASH Verified 12/22/19 22:13 aspirin Allergy Intermediate "COLD Verified 12/22/19 22:13 SWEATS", N/V cyclobenzaprine Allergy Unknown Unknown Verified 12/22/19 22:13 [From FLEXERIL] allergy reaction duloxetine [DULOXETINE] Allergy Unknown Unknown Verified 12/22/19 22:13 allergy reaction Iodinated Contrast Media Allergy Unknown Unknown Verified 12/22/19 22:13 [IODINATED CONTRAST MEDIA - allergy ORAL AND] reaction Sulfa (Sulfonamide Allergy Unknown "CONTRAINDICATED Verified 12/22/19 22:13 Antibiotics) WITH ASTHMA" trimethoprim [TRIMETHOPRIM] Allergy Unknown Unknown Verified 12/22/19 22:13 allergy reaction Beta-Blockers AdvReac Severe "MAKES Verified 12/22/19 22:13 (Beta-Adrenergic Bloc ASTHMA WORSE" caffeine [From Cafergot] AdvReac Mild NA-NAUSEA Verified 12/22/19 22:13 ergotamine [From Cafergot] AdvReac Mild NA-NAUSEA Verified 12/22/19 22:13 pregabalin [From Lyrica] AdvReac Mild "TOO Verified 12/22/19 22:13 SEDATED" NSAIDS (Non-Steroidal AdvReac Unknown Verified 12/22/19 22:13 Anti-Inflamma allergy reaction [facility] History - Hepatitis A Screen Drug use history?: No High risk sexual behaviors?: No History of sexually transmitted infection?: No Currently employed?: No Childcare worker?: No Do you have indoor plumbing?: Yes Do you have electricity?: Yes Attestation statement:: This patient has been screened for Hepatitis A risk factors. I have reviewed the patient's past medical history: Yes Medical History: Reports:: Aneurysm, Asthma, Atrial Fibrillation, Chronic Obstructive Pulmonary Disease (COPD), Cerebrovascular Accident, Diabetes Amanda litus Type 2, Hypertension, Internal Pacemaker, Lung Disease, Renal Disease, Seizures, Transient Ischemic Attacks (TIA), Tuberculosis Denies:: Cancer, Diabetes Mellitus Type 1, MRSA Other Medical History: Reports: Arthritis, Cataracts, Fibromyalgia Comment: Heart Problems, SOA Laterality Cases: Right: Arthroscopy Shoulder, Bilateral: Carpal Tunnel Release, Tonsillectomy Other Surgeries: Yes: Cancer Surgery, Cardiac Catheterization, Colonoscopy, Colon Resection, Hysterectomy-Total, Pacemaker Amputation: No Fractures: No Comment: Ablation in heart, Back surgery x3, Shoulder surgery, Small bowel blockage x4, Renal surgery - Social History Smoking Status: Never smoker Alcohol Intake: never Alcohol Intake Frequency:: other Substance Use Type: denies use Occupational Status: other Housing: house Household Members: spouse Family Hx:: Cancer, Hyperlipidemia, Diabetes, Heart Attack, Hypertension, Kidney Disease, Stroke, Thyroid Disorder, Tuberculosis, Asthma Comment: Radiation tx, Lung Disease, Emphysema, SOA ROS Obtained: Yes All systems reviewed & no additional complaints - Constitutional Constitutional: Reports fever(s) - Eyes Eyes: Denies change in vision - ENT Ears, Nose, Mouth, and Throat: Reports nasal congestion, Denies sore throat - Cardiovascular Cardiovascular: Reports as per HPI, Denies chest pain, Reports dyspnea - Respiratory Respiratory: Yes change in phlegm color, Yes cough, No coughing up blood - Gastrointestinal Gastrointestingal: Denies: vomiting - Genitourinary Female Genitourinary: Denies hematuria - Musculoskeletal Musculoskeletal: Denies joint pain, Denies joint swelling - Integumentary/Breasts Skin/Breast: Denies rash - Neurologic Neurologic: Denies headache(s), Denies seizure-like activity Physical Exam - General General appearance: alert - Head Head exam: normocephalic - Eye Eye exam: Present: PERRL, EOMI. Absent: scleral icterus - ENT ENT exam: Present: mucous membranes dry - Neck Neck exam: Present: trachea midline - Respiratory Respiratory exam: Present: prolonged expiratory phase, other (rhonchi ). Absent: respiratory distress - Cardiovascular Cardiovascular exam: Present: regular rate, systolic murmur, +S4 - Abdominal Exam Abdominal exam: Present: soft - Extremities Exam Extremities exam: Absent: calf tenderness - Neurological Exam Neurological exam: Present: alert, oriented X3, CN II-XII intact - Psychiatric Psychiatric exam: Present: normal affect - Skin Skin exam: Absent: rash
[2019-12-22 22:29] LABS: Allen's Test Y; Oxygen R/A %
[2019-12-23 04:26] LABS: Blood Urea Nitrogen 34 mg/dl (7-17); Carbon Dioxide 25 mmol/L (22.0-30.0); Chloride 103 mmol/L (98-107); Sodium 136 mmol/L (136-145)
[2019-12-23 04:43] LABS: Calcium 8.3 mg/dl (8.4-10.2); Glucose 344 mg/dl (74-100)
[2019-12-23 05:11] LABS: Basophils % 0.1 % (0.1-2.0); Eosinophils % 0.3 % (0.1-12.0); Hematocrit 35.8 % (37.0-47.0); Mean Corpuscular HGB Conc 30.5 g/dL (31.8-35.4); Mean Corpuscular Volume 93.6 fl (81-99); Monocytes # 0.1 K/mm3 (0.1-1.0); Neutrophils # 4.7 K/mm3 (1.8-7.8); Neutrophils % 81.6 % (37.0-80.0); Platelet Count 173 K/mm3 (142-424); Red Blood Count 3.83 M/mm3 (4.20-5.40); Red Cell Distribution Width 15.7 % (11.5-17.5); White Blood Count 5.7 K/mm3 (4.8-10.8)
[2019-12-23 05:13] LABS: Hemoglobin 10.9 g/dL (12.2-16.2)
--- NOTE | 2019-12-23 07:55 | Pharmacy Consult Notes ---
[facility] Pharmacy VTE Monitoring - Patient Demographics Admission date: 12/23/19 Report Date: 12/23/19 Time: 07:54 Allergies/Adverse Reactions: Patient Allergies amitriptyline [From Elavil] Allergy (Severe, Verified 12/23/19 01:34) A-[id number]/THROAT; SEIZURES chlorpromazine [From Thorazine] Allergy (Severe, Verified 12/23/19 01:34) SEIZURES dichloralphenazone [From Midrin] Allergy (Severe, Verified 12/23/19 01:34) [id number]/THROAT isometheptene [From Midrin] Allergy (Severe, Verified 12/23/19 01:34) [id number]/THROAT prochlorperazine [From Compazine] Allergy (Severe, Verified 12/23/19 01:34) SEIZURES adhesive tape Allergy (Intermediate, Verified 12/23/19 01:34) I-RASH aspirin Allergy (Intermediate, Verified 12/23/19 01:34) "COLD SWEATS", N/V cyclobenzaprine [From FLEXERIL] Allergy (Unknown, Verified 12/23/19 01:34) Unknown allergy reaction duloxetine [DULOXETINE] Allergy (Unknown, Verified 12/23/19 01:34) Unknown allergy reaction Iodinated Contrast Media [IODINATED CONTRAST MEDIA - ORAL AND] Allergy (Unknown, Verified 12/23/19 01:34) Unknown allergy reaction Sulfa (Sulfonamide Antibiotics) Allergy (Unknown, Verified 12/23/19 01:34) "CONTRAINDICATED WITH ASTHMA" trimethoprim [TRIMETHOPRIM] Allergy (Unknown, Verified 12/23/19 01:34) Unknown allergy reaction Beta-Blockers (Beta-Adrenergic Bloc Adverse Reaction (Severe, Verified 12/23/19 01:34) "MAKES ASTHMA WORSE" caffeine [From Cafergot] Adverse Reaction (Mild, Verified 12/23/19 01:34) NA-NAUSEA ergotamine [From Cafergot] Adverse Reaction (Mild, Verified 12/23/19 01:34) NA-NAUSEA pregabalin [From Lyrica] Adverse Reaction (Mild, Verified 12/23/19 01:34) "TOO SEDATED" NSAIDS (Non-Steroidal Anti-Inflamma Adverse Reaction (Verified 12/23/19 01:34) Unknown allergy reaction Height: 1.65 m Weight: 87.9 kg Patient Problems: Current Active Problems Acute kidney injury (Acute) Asthma with exacerbation (Acute) Bronchitis (Acute) - VTE Risk Labs: VTE Related Lab Results Hgb 10.9 g/dL (12.2-16.2) L D 12/23/19 04:05 Hct 35.8 % (37.0-47.0) L 12/23/19 04:05 Plt Count 173 K/mm3 (142-424) 12/23/19 04:05 BUN 34 mg/dl (7-17) H 12/23/19 04:05 Creatinine 1.20 mg/dl (0.52-1.04) H 12/23/19 04:05 Estimated Creat Clear 58 mL/min (50-200) 12/23/19 04:05 Was VTE Risk Assessment Performed: Yes VTE Score: 14 VTE Risk Level: Moderate Risk - Prophylaxis Types of VTE Prophylaxis: Pharmacological (PATIENT'S ELIQUIS RESTARTED) Location of Applied Device: Refused
--- NOTE | 2019-12-23 11:53 | H&P/Discharge Summary ---
General - General Admission date:: 12/23/19 Discharge date: 12/23/19 *Admission Date: 12/23/19 *Chief complaint: Cough, shortness of breath, fever *History of present illness: Ms. Espinosa is a 74-year-old female with no history of smoking who has extensive history of asthma and recurrent bronchitis. States that for the past 3 to 4 days she has been having worsening cough and congestion consistent with her bronchitis episodes. Her cough is been somewhat productive of green phlegm. Over the past 24 to 48 hours developed fever up to 101.8. [place] more fatigued and weak. Has been using an albuterol nebulizer at home with some benefit though still feeling dyspneic. Not drinking well or tolerating good p.o. intake. Family had significant concerns they brought her to the ER for assessment. Upon arrival she was noted to have hypoxemia per her blood gas with a PaO2 less than 60. Normal white count with a left shift, acute kidney injury above her baseline, and generalized weakness. Flu and strep were obtained that were found negative. She was given steroids, empiric antibiotics, and admitted for further management of bronchitis versus potential pneumonia. Her pneumonia severity index was calculated at 93 making her class IV and appropriate for inpatient management. Admitted to medicine for further management [facility] History I have reviewed the patient's past medical history: Yes Medical History: Reports:: Aneurysm, Arrhythmia, Asthma, Atrial Fibrillation, Congestive Heart Failure, Chronic Obstructive Pulmonary Disease (COPD), Cereb rovascular Accident, Diabetes Mellitus Type 2, Hyperlipidemia, Hypertension, Internal Pacemaker, Lung Disease, Renal Disease, Seizures, Transient Ischemic Attacks (TIA), Tuberculosis Denies:: Cancer, Diabetes Mellitus Type 1, MRSA *Have you ever received a pneumonia vaccine?: Yes (sep 2019) *Have you received a flu vaccine this season?: Yes (jul 2019) Other Medical History: Reports: Arthritis, Cataracts, Fibromyalgia Laterality Cases: Right: Arthroscopy Shoulder, Bilateral: Carpal Tunnel Release, Tonsillectomy Other Surgeries: Yes: Cancer Surgery, Cardiac Catheterization, Colonoscopy, Colon Resection, Hysterectomy-Total, Pacemaker Amputation: No Fractures: No - *Social History Smoking Status: Never smoker Alcohol Intake: never Alcohol Intake Frequency:: other Substance Use Type: denies use *Occupational Status:: retired, disabled Housing: house Household Members: spouse *Travel in the last 8 weeks: None Family Hx:: Cancer, Coronary Artery Disease, Diabetes, Heart Attack, Hypertension, Kidney Disease Review of Systems - Review of Systems Review of systems:: pertinent systems reviewed and negative unless documented below (14 point review of systems performed, pertinent positives and negatives as per HPI) - *Neurologic Denies headache(s), Denies seizure-like activity Exam Vital signs and Labs for Last 24 Hours: Temp Pulse Resp BP Pulse Ox 98.4 F 72 17 128/68 96 12/23/19 11:42 12/23/19 11:42 12/23/19 11:42 12/23/19 11:42 12/23/19 11:42 Laboratory Results - last 24 hr 12/22/19 21:20: WBC 7.4, RBC 4.47, Hgb 12.9, Hct 41.4, MCV 92.8, MCH 28.9, MCHC 31.1 L, RDW 15.4, Plt Count 217, MPV 9.0, Neut % (Auto) 51.4, Lymph % (Auto) 40.3, Fannin % (Auto) 5.6, Eos % (Auto) 2.3, Baso % (Auto) 0.4, Neut # (Auto) 3.8, Lymph # (Auto) 3.0, Fannin # (Auto) 0.4, Eos # (Auto) 0.2, Baso # (Auto) 0.0 12/22/19 21:20: Sodium 139, Potassium 4.6, Chloride 98, Carbon Dioxide 30, Anion Gap 15.6 H, BUN 31 H, Creatinine 1.50 H, Estimated Creat Clear 43, Estimated GFR 34 L, Est GFR ( Amer) 41 L, Glucose 179 H, Calcium 9.3, Troponin I < 0.01 12/22/19 21:20: Lactate 2.3 H 12/22/19 21:20: Influenza Type A Ag Negative, Influenza Type B Ag Negative 12/22/19 21:20: Group A Strep Rapid Negative 12/22/19 22:27: Specimen Source R/r, O2 % R/a, ABG pH 7.39, ABG pCO2 46.7 H, ABG pO2 53.5 L, ABG HCO3 27.8 H, ABG Total CO2 29.2 H, ABG O2 Saturation 89 L, ABG Base Excess 2.8 H, Ravinder Test Y 12/23/19 01:30: Troponin I < 0.01 12/23/19 01:30: Lactate 1.4 12/23/19 04:05: Sodium 136, Potassium 5.0, Chloride 103, Carbon Dioxide 25, Anion Gap 13.0, BUN 34 H, Creatinine 1.20 H, Estimated Creat Clear 58, Estimated GFR 44 L, Est GFR ( Amer) 53 L D, Glucose 344 H D, Calcium 8.3 L D, Magnesium 2.1, Troponin I < 0.01 12/23/19 04:05: WBC 5.7, RBC 3.83 L, Hgb 10.9 L D, Hct 35.8 L, MCV 93.6, MCH 28.5, MCHC 30.5 L, RDW 15.7, Plt Count 173, MPV 9.0, Neut % (Auto) 81.6 H, Lymph % (Auto) 17.0, Fannin % (Auto) 1.0 L, Eos % (Auto) 0.3, Baso % (Auto) 0.1, Neut # (Auto) 4.7, Lymph # (Auto) 1.0, Fannin # (Auto) 0.1, Eos # (Auto) 0.0, Baso # (Auto) 0.0 I & O for Last 24 hours: Intake & Output 12/20/19 12/21/19 12/22/19 12/23/19 23:59 23:59 23:59 23:59 Intake Total 417 / 417 Balance 417 / 417 Weight 80.739 kg 87.9 kg - Constitutional no acute distress, obese - *Routine HEENT Exam Head: Present: normocephalic Eye: Present: EOMI, PERRL ENT: Present: mucous membranes moist - *Routine Neck Exam Present: supple. Absent: lymphadenopathy - *Routine Respiratory Exam Present: prolonged expiratory phase, wheezes. Absent: accessory muscle use, rhonchi Comments: Minimal end expiratory wheeze, no focal crackles - *Routine Cardiovascular Exam Present: RRR - *Routine Abdominal Exam Present: soft, normoactive bowel sounds. Absent: tenderness - *Routine Extremities Exam Absent: cyanosis, clubbing, edema - *Routine Skin Exam Present: warm. Absent: rash - *Routine Neurological Exam Present: alert, oriented X3 Hospital Course Hospital Course: Admitted to observation. Started on IV antibiotics and steroids. Given breathing treatments during admission. Fortunately she did not require any supplemental oxygen. Monitored overnight with improvement in temperature and vitals. Patient states she felt much better in the morning on interview. Breathing more comfortably without any dyspnea. Was transition to oral antibiotics to complete a course for pneumonia along with short course of steroids. Prescribed duo nebs to use in her nebulizer at home. Additionally given her cough, fever, negative flu, coronavirus PCR was obtained. We will follow this lab up in the outpatient setting. Counseled on maintaining good social distancing, staying at home with self isolation pending coronavirus result. She is requiring no oxygen, not in acute respiratory failure or distress, she is medically stable for discharge home to complete oral antibiotics and follow-up closely with her primary care doctor in the coming week. Denies chest pain, nausea, vomiting, syncope, confusion. Tolerating good p.o. intake. Medically stable for discharge home Results Labs on day of discharge: Labs from last 24 hours 12/23/19 12/23/19 12/23/19 04:05 04:05 01:30 WBC 5.7 RBC 3.83 L Hgb 10.9 L D Hct 35.8 L MCV 93.6 MCH 28.5 MCHC 30.5 L RDW 15.7 Plt Count 173 MPV 9.0 Neut % (Auto) 81.6 H Lymph % (Auto) 17.0 Fannin % (Auto) 1.0 L Eos % (Auto) 0.3 Baso % (Auto) 0.1 Neut # (Auto) 4.7 Lymph # (Auto) 1.0 Fannin # (Auto) 0.1 Eos # (Auto) 0.0 Baso # (Auto) 0.0 Specimen Source O2 % ABG pH ABG pCO2 ABG pO2 ABG HCO3 ABG Total CO2 ABG O2 Saturation ABG Base Excess Ravinder Test Sodium 136 Potassium 5.0 Chloride 103 Carbon Dioxide 25 Anion Gap 13.0 BUN 34 H Creatinine 1.20 H Estimated Creat Clear 58 Estimated GFR 44 L Est GFR ( Amer) 53 L D Glucose 344 H D Lactate 1.4 Calcium 8.3 L D Magnesium 2.1 Troponin I < 0.01 Influenza Type A Ag Influenza Type B Ag Group A Strep Rapid 12/23/19 12/22/19 12/22/19 01:30 22:27 21:20 WBC RBC Hgb Hct MCV MCH MCHC RDW Plt Count MPV Neut % (Auto) Lymph % (Auto) Fannin % (Auto) Eos % (Auto) Baso % (Auto) Neut # (Auto) Lymph # (Auto) Fannin # (Auto) Eos # (Auto) Baso # (Auto) Specimen Source R/r O2 % R/a ABG pH 7.39 ABG pCO2 46.7 H ABG pO2 53.5 L ABG HCO3 27.8 H ABG Total CO2 29.2 H ABG O2 Saturation 89 L ABG Base Excess 2.8 H Ravinder Test Y Sodium Potassium Chloride Carbon Dioxide Anion Gap BUN Creatinine Estimated Creat Clear Estimated GFR Est GFR ( Amer) Glucose Lactate Calcium Magnesium Troponin I < 0.01 Influenza Type A Ag Influenza Type B Ag Group A Strep Rapid Negative 12/22/19 12/22/19 12/22/19 21:20 21:20 21:20 WBC RBC Hgb Hct MCV MCH MCHC RDW Plt Count MPV Neut % (Auto) Lymph % (Auto) Fannin % (Auto) Eos % (Auto) Baso % (Auto) Neut # (Auto) Lymph # (Auto) Fannin # (Auto) Eos # (Auto) Baso # (Auto) Specimen Source O2 % ABG pH ABG pCO2 ABG pO2 ABG HCO3 ABG Total CO2 ABG O2 Saturation ABG Base Excess Ravinder Test Sodium 139 Potassium 4.6 Chloride 98 Carbon Dioxide 30 Anion Gap 15.6 H BUN 31 H Creatinine 1.50 H Estimated Creat Clear 43 Estimated GFR 34 L Est GFR ( Amer) 41 L Glucose 179 H Lactate 2.3 H Calcium 9.3 Magnesium Troponin I < 0.01 Influenza Type A Ag Negative Influenza Type B Ag Negative Group A Strep Rapid 12/22/19 21:20 WBC 7.4 RBC 4.47 Hgb 12.9 Hct 41.4 MCV 92.8 MCH 28.9 MCHC 31.1 L RDW 15.4 Plt Count 217 MPV 9.0 Neut % (Auto) 51.4 Lymph % (Auto) 40.3 Fannin % (Auto) 5.6 Eos % (Auto) 2.3 Baso % (Auto) 0.4 Neut # (Auto) 3.8 Lymph # (Auto) 3.0 Fannin # (Auto) 0.4 Eos # (Auto) 0.2 Baso # (Auto) 0.0 Specimen Source O2 % ABG pH ABG pCO2 ABG pO2 ABG HCO3 ABG Total CO2 ABG O2 Saturation ABG Base Excess Ravinder Test Sodium Potassium Chloride Carbon Dioxide Anion Gap BUN Creatinine Estimated Creat Clear Estimated GFR Est GFR ( Amer) Glucose Lactate Calcium Magnesium Troponin I Influenza Type A Ag Influenza Type B Ag Group A Strep Rapid DS: Diagnosis - Discharge Diagnosis (1) Bronchopneumonia Status: Acute (2) Hypoxemia Status: Resolved (3) Acute kidney injury Status: Acute (4) Bronchitis Status: Acute (5) CHF (congestive heart failure) Status: Chronic (6) Chronic pain disorder Status: Chronic (7) Diabetes Status: Chronic (8) Obese Status: Chronic Problem details: Class I, complicates all aspects of her care Discharge Plan - Patient Discharge Instructions ACTIVITY: Continue current activity DIET: continue same diet Patient Instructions: DI for Asthma -- Adult, DI for Acute Bronchitis, DI for Acute Kidney Injury - Follow up Plan Follow up with: Geovany Medel [Primary Care Provider] - Disposition: Home, Self-Senior Living Medications: Home Medications Medication Instructions Recorded Confirmed Type Atorvastatin Calcium [Atorvastatin 40 mg PO HS 01/06/18 12/22/19 History 40mg Tab] Bisoprolol Fumarate [Zebeta] 10 mg PO DAILY 01/06/18 12/22/19 History Furosemide [Furosemide 40MG tAB] 40 mg PO DAILYP PRN 01/06/18 12/22/19 History Melatonin 10 mg PO HS 01/06/18 12/22/19 History Pantoprazole Sodium [Protonix 40mg 40 mg PO DAILY 01/06/18 12/22/19 History (granule) packet] polyethylene glycoL 3350 [Miralax 17 gm PO DAILY 01/06/18 12/22/19 History Powder] fentanyl 50 mcg/hr transdermal 1 patch TRANSDERMA Q72H 02/07/18 12/22/19 History patch ALPRAZolam [Xanax 0.5mg tab] 0.5 mg PO TID PRN 30 Days tab 05/08/18 12/22/19 Rx apixaban 5 mg tablet 5 mg PO BID tab 07/23/19 12/23/19 History insulin aspart U-100 100 unit/mL 18 unit SQ QID ml 11/29/19 12/22/19 History subcutaneous solution insulin glargine 100 unit/mL 75 unit SQ HS ml 11/29/19 12/22/19 History subcutaneous solution leflunomide 10 mg tablet 10 mg PO DAILY tab 11/29/19 12/22/19 History oxycodone 10 mg tablet 10 mg PO Q4H PRN tab 11/29/19 12/22/19 History Acetaminophen 500 mg PO BID 12/23/19 12/23/19 History Azithromycin 250 mg PO DAILY 4 Days #4 tab 12/23/19 Rx Cefdinir [Omnicef 300mg Capsule] 300 mg PO BID 6 Days #12 cap 12/23/19 Rx Gabapentin 800 mg PO TID 12/23/19 12/23/19 History Ipratropium/Albuterol Sulfate 3 ml IH QIDRT 30 Days #60 ampul.neb 12/23/19 Rx [Duoneb 3mL neb] predniSONE [Deltasone 10mg tablet] 40 mg PO DAILY 4 Days #16 tab 12/23/19 Rx Prescriptions/Medication Reconciliation: New Ipratropium/Albuterol Sulfate [Duoneb 3mL neb] 3 ml IH QIDRT 30 Days #60 ampul.neb Azithromycin 250 mg PO DAILY 4 Days #4 tab predniSONE [Deltasone 10mg tablet] 40 mg PO DAILY 4 Days #16 tab Cefdinir [Omnicef 300mg Capsule] 300 mg PO BID 6 Days #12 cap Continued apixaban 5 mg tablet 5 mg PO BID tab leflunomide 10 mg tablet 10 mg PO DAILY tab insulin glargine 100 unit/mL subcutaneous solution 75 unit SQ HS ml insulin aspart U-100 100 unit/mL subcutaneous solution 18 unit SQ QID ml fentanyl 50 mcg/hr transdermal patch 1 patch TRANSDERMA Q72H oxycodone 10 mg tablet 10 mg PO Q4H PRN tab PRN Reason: pain Furosemide [Furosemide 40MG tAB] 40 mg PO DAILYP PRN PRN Reason: HYPERTENSION Pantoprazole Sodium [Protonix 40mg (granule) packet] 40 mg PO DAILY polyethylene glycoL 3350 [Miralax Powder] 17 gm PO DAILY Melatonin 10 mg PO HS Bisoprolol Fumarate [Zebeta] 10 mg PO DAILY Atorvastatin Calcium [Atorvastatin 40mg Tab] 40 mg PO HS ALPRAZolam [Xanax 0.5mg tab] 0.5 mg PO TID PRN 30 Days tab PRN Reason: Anxiety Acetaminophen 500 mg PO BID Gabapentin 800 mg PO TID - Problem Reconciliation Problems Reviewed?: Yes
--- NOTE | 2019-12-24 16:12 | Electrocardiograph Report ---
APPROVED REPORT Exam: Resting ECG HR:83 bpm ECG Measurements Heart Rate 83 AXES MI 168 P 19 QRSd 142 QRS -61 QT 428 T103 QTc 502 <Conclusion> Normal sinus rhythm Left axis deviation Left bundle branch block Abnormal ECG Electronically signed by : Jimy Conley, 12/24/2019 16:12:09
== END 2019-12-23 12:45 | disposition home or self-care (01) ==
LOC: 2ND 21:07 → ER 21:07 → 2ND 12-23 01:05
PROVIDERS: ADMIT Internal Medicine Adolescent Medicine; ATTEND Internal Medicine Adolescent Medicine
DX: I48.91 Unspecified atrial fibrillation; I10 Essential (primary) hypertension; J18.9 Pneumonia, unspecified organism; J45.901 Unspecified asthma with (acute) exacerbation; Z95.0 Presence of cardiac pacemaker; Z88.8 Allergy status to other drugs, medicaments and biological substances; Z79.899 Other long term (current) drug therapy; E11.9 Type 2 diabetes mellitus without complications; Z20.828 Contact with and (suspected) exposure to other viral communicable diseases; Z79.4 Long term (current) use of insulin; I50.9 Heart failure, unspecified
CPT/HCPCS: 71020; 71046; 80048; 82803; 82962; 83605; 83735; 84484; 85025; 87040; 87077; 87275; 87276; 87430; 87635; 93005; 96365; 96367; 96375; 99285; G0378; J0456; U0002

== ENCOUNTER → 2020-03-04 14:28 | Outpatient (CLI) | payer MEDICARE, SELFPAY ==
--- NOTE | 2020-03-04 14:36 | CT_ITS ---
PROCEDURE: CT CERVICAL SPINE WO CON CLINICAL INDICATION: RADICULOPATHY CERVICAL REGION RT ARM Right hand pain and numbness, neck pain COMPARISON: [facility] CT CERVICAL SPINE W/O CONT from 03/07/2014 TECHNIQUE: Axial images obtained with sagittal and coronal reformats. All CT scans at the facility use one or more dose reduction, viz: automated exposure control, ma/kV adjustment per patient size (including targeted exams where dose is matched to indication, i.e. head), or iterative reconstruction technique. Axial spiral CT scanning performed of the cervical spine beginning at the base of the skull and continuing to the upper T-spine. 3-D multiplanar reconstruction with 3-D manipulation of volumetric data set in image rendering was completed by the radiologist and/or technologist with the supervision of the radiologist on independent workstation. FINDINGS: There is normal alignment. There is slight reversal of the cervical lordosis. C1-C2: Mild degenerative changes at the atlantoaxial joint. C2-C3: Unremarkable. C3-C4: Mild bulging disc. There is prominent left-sided facet hypertrophic change with mild left-sided foraminal narrowing. There has been fusion of C4-C5 C5 and C6. There is a mildly prominent left paracentral disc osteophyte complex at C5-C6 resulting in canal stenosis of 9 mm. There is bilateral lateral recess narrowing and bilateral foraminal narrowing. The lateral recess narrowing slightly greater on the left due to the disc osteophyte complex. MRI may provide further evaluation to determine the degree of impingement. There is some minimal ossification of posterior longitudinal ligament at C6 superiorly causing mild narrowing of the canal centrally. C6-C7: Degenerative disc disease with canal stenosis along with facet and uncovertebral hypertrophy with bilateral lateral recess and foraminal narrowing C7-T1: Degenerate disc disease with 2 mm anterolisthesis of C7. Lung apices are clear. IMPRESSION: 1. Reversal cervical lordosis with postsurgical changes. No acute fracture or dislocation. 2. C3-C4: Mild bulging disc. There is prominent left-sided facet hypertrophic change with mild left-sided foraminal narrowing. 3. There has been fusion of C4-C5 C5 and C6. There is a mildly prominent left paracentral disc osteophyte complex at C5-C6 resulting in canal stenosis of 9 mm. There is bilateral lateral recess narrowing and bilateral foraminal narrowing. The lateral recess narrowing slightly greater on the left due to the disc osteophyte complex. MRI may provide further evaluation to determine the degree of impingement. There is some minimal ossification of posterior longitudinal ligament at C6 superiorly causing mild narrowing of the canal centrally. 4. C6-C7: Degenerative disc disease with canal stenosis along with facet and uncovertebral hypertrophy with bilateral lateral recess and foraminal narrowing 5. C7-T1: Degenerate disc disease with 2 mm anterolisthesis of C7. Dictated by: Ravinder Smith MD 03/05/2020 10:25 Electronically signed by Ravinder Smith MD in [place] 03/05/2020 10:25
== END ==
PROVIDERS: PCP Internal Medicine; Visit Provider Internal Medicine
DX: M47.22 Other spondylosis with radiculopathy, cervical region (principal)
CPT/HCPCS: 72125

== ENCOUNTER → 2020-03-19 11:13 | Outpatient (CLI) | payer MEDICARE, SELFPAY ==
[2020-03-19 11:42] LABS: Basophils % 0.2 % (0.1-2.0); Eosinophils # 0.3 K/mm3 (0.0-0.4); Hematocrit 37.2 % (37.0-47.0); Hemoglobin 11.9 g/dL (12.2-16.2); Lymphocytes # 2.8 K/mm3 (0.7-4.5); Lymphocytes % 35.1 % (10-50); Mean Corpuscular HGB Conc 31.9 g/dL (31.8-35.4); Mean Corpuscular Hemoglobin 30.1 pg (27.0-31.2); Mean Corpuscular Volume 94.6 fl (81-99); Mean Platelet Volume 8.7 fl (7.4-10.4); Monocytes # 0.3 K/mm3 (0.1-1.0); Monocytes % 3.1 % (1.7-9.3); Neutrophils # 4.5 K/mm3 (1.8-7.8); Neutrophils % 57.7 % (37.0-80.0); Platelet Count 174 K/mm3 (142-424); Red Blood Count 3.93 M/mm3 (4.20-5.40); Red Cell Distribution Width 15.3 % (11.5-17.5); White Blood Count 7.9 K/mm3 (4.8-10.8)
--- NOTE | 2020-03-19 12:00 | ECG_ITS ---
APPROVED REPORT Exam: Resting ECG HR:75 bpm ECG Measurements Heart Rate 75 AXES QRSd 148 QRS -66 QT 450 T 93 QTc 502 <Conclusion> NSR Left axis deviation LBBB Abnormal ECG Electronically signed by : Geovany Medel, 03/19/2020 14:13:49
[2020-03-19 12:32] LABS: Anion Gap 13.7 mEq/L (5-15); Blood Urea Nitrogen 27 mg/dl (7-17); Calcium 9.5 mg/dl (8.4-10.2); Carbon Dioxide 31 mmol/L (22.0-30.0); Chloride 100 mmol/L (98-107); Estimated Glomerular Filt Rate 54 ml/min (>60); GFR (African American) 66 ML/MIN (>60); Glucose 130 mg/dl (74-100); Potassium 4.7 mmoL/L (3.5-5.1); Sodium 140 mmol/L (136-145)
[2020-03-19 12:33] LABS: Coronavirus 19 IgG Antibody Negative (Negative); Coronavirus 19 IgM Antibody Negative (Negative)
== END ==
PROVIDERS: Visit Provider Urology
DX: Z01.818 Encounter for other preprocedural examination (principal); L03.211 Cellulitis of face; H93.91 Unspecified disorder of right ear; D22.30 Melanocytic nevi of unspecified part of face
CPT/HCPCS: 36415; 80048; 85025; 86328; 93005

== ENCOUNTER 2020-03-20 08:54 | Day surgery (SDC) | payer MEDICARE, SELFPAY ==
[2020-03-19 10:22] VITALS: BMI 30.1
[2020-03-20 09:23] VITALS: BP 127/68; PULSE 77; RESP 18; TEMP 36.6; O2SAT 97
[2020-03-20 09:27] LABS: POC Glucose,Bedside 95 (70-110)
--- NOTE | 2020-03-20 11:15 | HMH.ANESCL ---
[facility] Anesthesia Checklist - Patient Identification Patient Identification: Arm Band - Structural Data Admitted From: Home Planned Operative Procedure/s: excision neoplasm right ear, nevus right upper lip Consent for Planned Operative Procedure(s) Verified: Yes Verified Documents: Surgical Consent, History and Physical - NPO Status Verified Time NPO: 00:00 - Additional verifications Anesthesia Reactions: No Hx Blood Transfusions: Yes Blood Transfusion Reaction: No - Airway Assessment C-Spine Mobility Assessed: Yes (mp2) TMJ Mobility Assessed: Yes Dentition: Good Dentition - Neurological Assessment Level of Consciousness: Awake, Alert - Anesthesia Plan Anesthesia Risk discussed: Yes Anesthesia Plan: Verified ASA Class: III Anesthesia Type: MAC [facility] History Medical History: Reports:: Aneurysm, Arrhythmia, Asthma, Atrial Fibrillation, Cancer, Congestive Heart Failure, Chronic Obstructive Pulmonary Disease (COPD), Cerebrovascular Accident, Diabetes Mellitus Type 2, Hyperlipidemia, Hypertension, Internal Pacemaker, Lung Disease, Renal Disease, Seizures, Transient Ischemic Attacks (TIA), Tuberculosis Denies:: Diabetes Mellitus Type 1, MRSA *Have you ever received a pneumonia vaccine?: Yes *Have you received a flu vaccine this season?: Yes Other Medical History: Reports: Arthritis, Cataracts, Fibromyalgia. Denies: Blood Transfusion Reaction Anesthesia experience/problems:: nac Laterality Cases: Right: Arthroscopy Shoulder, Bilateral: Carpal Tunnel Release, Tonsillectomy Other Surgeries: Yes: Cancer Surgery, Cardiac Catheterization, Colonoscopy, Colon Resection, Hysterectomy-Total, Pacemaker Amputation: No Fractures: No - *Social History Smoking Status: Never smoker Alcohol Intake: never Alcohol Intake Frequency:: other Substance Use Type: denies use *Occupational Status:: disabled Housing: house Household Members: spouse *Travel in the last 8 weeks: None Family Hx:: Cancer, Coronary Artery Disease, Diabetes, Heart Attack, Hypertension, Kidney Disease
[2020-03-20 11:40] VITALS: BP 111/51; PULSE 75; RESP 18; O2SAT 94
[2020-03-20 11:50] VITALS: BP 118/60; PULSE 75; RESP 18; O2SAT 92
[2020-03-20 12:00] VITALS: BP 118/64; PULSE 78; RESP 18; O2SAT 95
[2020-03-20 12:04] VITALS: BP 110/50; PULSE 77; RESP 18; TEMP 36.4; O2SAT 93
--- NOTE | 2020-03-20 17:00 | HMH.OPNOTE ---
Date of procedure: 03/20/20 Pre-op Diagnosis:: 1. Lesion right ear 3 cm 2. Neoplasm right upper lip 1 cm Post-op Diagnosis:: same Procedure performed:: 1. 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 The perilesional areas were infiltrated with a total of the 4 cc of 2% lidocaine containing epinephrine. Area was marked out it measured 3 cm and the gricelda out was incised and the lesion was excised to the level of the perichondrium. Anterior and inferior incisions were made and the tissue rearrangement geometric plastic repair was done with interrupted 5-0 nylon sutures. The lesion on the upper lip marked out and the gricelda out measured 1 cm and the gricelda up was incised and the lesion was excised and submitted. Lateral incisions were made and a tissue rearrangement geometric plastic repair was done with interrupted 5-0 nylon sutures. Dermabond dressing was applied to both sites along with Band-Aid and dot dressings. Patient tolerated the procedure well and was sent to recovery in good general condition. Condition: stable Disposition: PACU Complications:: none
== END 2020-03-20 12:00 | disposition home or self-care (01) ==
LOC: OR 08:54
PROVIDERS: PCP Internal Medicine; Visit Provider Otolaryngology
PROC: (CPT 14060; principal; 2020-03-20 10:30)
DX: D18.01 Hemangioma of skin and subcutaneous tissue (principal); J44.9 Chronic obstructive pulmonary disease, unspecified; I11.0 Hypertensive heart disease with heart failure; E78.5 Hyperlipidemia, unspecified; I50.9 Heart failure, unspecified; Z95.0 Presence of cardiac pacemaker; G45.9 Transient cerebral ischemic attack, unspecified; I72.9 Aneurysm of unspecified site; I63.9 Cerebral infarction, unspecified; E11.9 Type 2 diabetes mellitus without complications; Z79.4 Long term (current) use of insulin; Z79.899 Other long term (current) drug therapy
CPT/HCPCS: 14060 ×2; 82962; 88305; 96374; 96375

== ENCOUNTER → 2020-04-14 16:24 | Outpatient (CLI) | payer MEDICARE, SELFPAY ==
--- NOTE | 2020-04-14 16:28 | MM_ITS ---
PROCEDURE: MM DIG SCREENING MAMM BI W/CAD DIGITAL BREAST TOMOSYNTHESIS INCLUDED Patient Age:74Y CLINICAL INDICATION: SCREENING no hormones. No new complaints.. Positive family history:. Daughter with breast cancer age 50. Mother breast cancer. Grandmother and 3 aunts breast cancer. COMPARISON: DIGMAMMS MAMMOGRAM SCREEN-PURCHASE REQUEST EDITOR N/C from 07/25/2001 [facility] DIG MAMM-SCREEN LYNETTE from 02/13/2010 DIGMAMMS MAMMOGRAM SCREEN-PURCHASE REQUEST EDITOR N/C from 03/14/2013 [facility] DIG MAMM-SCREEN LYNETTE from 08/13/2015 ABDPELW/O CT ABD PELVIS W/O CONTRAST from 09/23/[address] head/brain wo con from 06/08/2018 [facility] MM Dig screening mamm BI w/CAD from 07/13/2018 XR CHEST 2V from 12/22/2019 TECHNIQUE: Standard CC and MLO images were obtained. R2 CAD reviewed. Bilateral digital breast tomosynthesis included. FINDINGS: Mild/moderate residual fibroglandular elements most evident towards upper-outer quadrant bilateral. A stable benign primarily vascular calcifications bilateral. Left breast. No new Areas of concern Stable likely intramammary node at lateral left breast-less than 8 mm size and unchanged since 2012 right breast and was even present back in 2000. Remainder left breast unremarkable. Scattered benign calcifications otherwise which can be followed. Pacemaker is noted superiorly on left RIGHT BREAST: Area labeled A:. Small area of density at the deep central right breast towards 530-6 o'clock position. (MLO tomosynthesis image 34 and cc tomosynthesis image 22) this measures just less than 10 mm length x 5 mm height. .Area labeled B: Slight posterior to this on today's MLO view is a 2nd small ovoid density measuring less than 5 mm. (MLO tomosynthesis image 50) suspect cyst/tiny cyst. These above areas would benefit from cc and 90 degree spot views along with subsequent ultrasound-with particularly attention to the area labeled A. The additional imaging particularly warranted to be cautious in this patient with positive family history Area labeled C: Large nearly 6 cm fat filled lymph node right axilla. Likely prominent benign lymph node which was included with today's deeper view of right axilla; but given its large size and the fact that was not well seen on previous studies I would suggest of ultrasound to further characterize/evaluate this large axillary lymph node to be cautious.... Is inferior-most margin may have been a image on the 2019 MLO view Physical exam here as well as elsewhere to palpate for any potential other enlarged nodes suggested in follow-up as well IMPRESSION: RIGHT BREAST: Spot views and ultrasound right breast recommended to evaluate areas discussed above.-Note comments in text above LEFT BREAST. Stable. No new areas of concern. Benign appearing stable less than 7 mm intramammary node upper outer quadrant BI-RAD Category: 0 Need Additional Imaging Evaluation FOLLOW-UP: IMM Immediate Follow-up Recommended Spot views and ultrasound right breast (A letter has been sent to the patient regarding results of the study.) Dictated by: Ricardo Espinoza MD 04/16/2020 12:48 Electronically signed by Ricardo Espinoza MD in [place] 04/16/2020 12:48
== END ==
PROVIDERS: PCP Internal Medicine; Visit Provider Internal Medicine
DX: Z12.31 Encounter for screening mammogram for malignant neoplasm of breast (principal)
CPT/HCPCS: 77063; 77067

== ENCOUNTER → 2020-05-07 14:08 | Outpatient (CLI) | payer MEDICARE, SELFPAY ==
--- NOTE | 2020-05-07 14:11 | MM_ITS ---
PROCEDURE: MM DIG MAMM DX UNILAT RT CAD Digital Breast Tomosynthesis Included CLINICAL INDICATION: RT BREAST NODULE COMPARISON: MG DMSB DIG MAMM-SCREEN LYNETTE from 08/13/2015 MG SCBI MM Dig screening mamm BI w/CAD from 07/13/2018 MG MM DIG SCREENING MAMM BI W/CAD from 04/14/2020 US US BREAST RT COMPLETE from 05/07/2020 TECHNIQUE: Problem solving views along with right breast ultrasound FINDINGS: Average fibroglandular tissue. Spot compression views of the right breast demonstrates a 9 and a 5 mm nodular opacity in the inferior aspect of the right breast. These are only well seen on the MLO view. The 5 mm opacity may be seen on the CC view medially Right breast ultrasound: At 12 o'clock there is a 5 mm cyst. At 1 o'clock there is a 3 mm cyst.. At 4 o'clock there is a 4 mm hypoechoic nodule. At 6 o'clock there is a 9 by 4 mm cyst likely corresponding to the mammographic abnormality. At 9 o'clock there is a 9 mm cyst and at 10 o'clock there is an 8 mm cyst. At 11 o'clock there is a 5 mm cyst. Behind the nipple there is an 8 mm cyst IMPRESSION: Mammographic abnormalities may correspond to cyst. There are multiple cyst noted on the ultrasound. Recommend six-month follow-up for confirmation of stability BI-RAD Category: 3 Probably Benign Finding Short Term Follow-up FOLLOW-UP: 6M 6Month Follow-up (A letter has been sent to the patient regarding results of the study.) Dictated b Ravinder Smith MD 05/09/2020 09:26 Ravinder Smith MD in [place] 05/09/2020 09:26
== END ==
PROVIDERS: PCP Internal Medicine; Visit Provider Internal Medicine
DX: R92.8 Other abnormal and inconclusive findings on diagnostic imaging of breast (principal)
CPT/HCPCS: 76641; 77061; 77065; G0279

== ENCOUNTER → 2020-05-30 15:31 | Outpatient (CLI) | payer MEDICARE, SELFPAY ==
[2020-06-01 17:14] LABS: Covid-19 Nasal PCR Sendout UK Not Detected
== END ==
PROVIDERS: PCP Internal Medicine; Visit Provider Internal Medicine
DX: Z03.818 Encounter for observation for suspected exposure to other biological agents ruled out (principal)
CPT/HCPCS: U0003

== ENCOUNTER → 2020-06-30 14:39 | Outpatient (CLI) | payer MEDICARE, SELFPAY ==
[2020-06-30 15:33] LABS: Chloride 107 mmol/L (98-107); Potassium 4.8 mmoL/L (3.5-5.1); Sodium 143 mmol/L (136-145)
[2020-06-30 15:36] LABS: Blood Urea Nitrogen 27 mg/dl (7-17); Estimated Glomerular Filt Rate 44 ml/min (>60); GFR (African American) 53 ML/MIN (>60)
[2020-06-30 15:37] LABS: Anion Gap 12.8 mEq/L (5-15); Calcium 9.1 mg/dl (8.4-10.2); Carbon Dioxide 28 mmol/L (22.0-30.0); Glucose 127 mg/dl (74-100)
== END ==
PROVIDERS: Visit Provider Internal Medicine
DX: E87.5 Hyperkalemia (principal); I10 Essential (primary) hypertension
CPT/HCPCS: 36415; 80048

== ENCOUNTER → 2020-07-14 16:02 | Outpatient (CLI) | payer MEDICARE, SELFPAY ==
[2020-07-14 16:24] LABS: Basophils % 0.3 % (0.1-2.0); Eosinophils # 0.3 K/mm3 (0.0-0.4); Eosinophils % 3.2 % (0.1-12.0); Hematocrit 33.5 % (37.0-47.0); Hemoglobin 10.4 g/dL (12.2-16.2); Lymphocytes # 2.6 K/mm3 (0.7-4.5); Lymphocytes % 31.6 % (10-50); Mean Corpuscular HGB Conc 30.9 g/dL (31.8-35.4); Mean Corpuscular Hemoglobin 29.9 pg (27.0-31.2); Mean Corpuscular Volume 96.6 fl (81-99); Monocytes # 0.3 K/mm3 (0.1-1.0); Monocytes % 3.9 % (1.7-9.3); Platelet Count 167 K/mm3 (142-424); Red Blood Count 3.47 M/mm3 (4.20-5.40); Red Cell Distribution Width 14.6 % (11.5-17.5); White Blood Count 8.3 K/mm3 (4.8-10.8)
[2020-07-14 17:30] LABS: Coronavirus 19 IgG Antibody Negative (Negative); Coronavirus 19 IgM Antibody Negative (Negative)
[2020-07-14 17:34] LABS: Anion Gap 11.9 mEq/L (5-15); Blood Urea Nitrogen 24 mg/dl (7-17); Calcium 8.7 mg/dl (8.4-10.2); Carbon Dioxide 30 mmol/L (22.0-30.0); Chloride 104 mmol/L (98-107); Estimated Glomerular Filt Rate 40 ml/min (>60); GFR (African American) 49 ML/MIN (>60); Glucose 154 mg/dl (74-100); Potassium 3.9 mmoL/L (3.5-5.1); Sodium 142 mmol/L (136-145)
== END ==
PROVIDERS: Visit Provider Otolaryngology
DX: Z01.89 Encounter for other specified special examinations (principal); L98.9 Disorder of the skin and subcutaneous tissue, unspecified; D22.9 Melanocytic nevi, unspecified; L57.0 Actinic keratosis
CPT/HCPCS: 36415; 80048; 85025; 86328

== ENCOUNTER 2020-07-15 06:58 | Day surgery (SDC) | payer MEDICARE, SELFPAY ==
[2020-07-14 15:37] VITALS: BMI 29.9
[2020-07-15 08:04] VITALS: BP 153/87; PULSE 69; RESP 18; TEMP 36.4; O2SAT 96
--- NOTE | 2020-07-15 08:28 | HMH.ANESCL ---
[facility] Anesthesia Checklist - Patient Identification Patient Identification: Arm Band, Verbal (Name & ) - Structural Data Admitted From: Home Planned Operative Procedure/s: ex ear lession x3 Consent for Planned Operative Procedure(s) Verified: Yes Verified Documents: History and Physical - NPO Status Verified Time NPO: 00:00 - Chart Verification Results Verified: CBC, BMP - Additional verifications Patient : No Anesthesia Reactions: No Hx Blood Transfusions: Yes Blood Transfusion Reaction: No Cephalosporin Allergy: No Previous Colonoscopy: No - Cardiovascular Assessment Heart Sounds: S1 & S2 Pulse Strength: Baseline Pulse Rhythm: Regular Peripheral Edema: No - Airway Assessment C-Spine Mobility Assessed: Yes TMJ Mobility Assessed: Yes Dentition: Poor Dentition - Neurological Assessment Level of Consciousness: Awake, Alert, Appropriate Hx Seizures: No Numbness or tingling in extremities: No - Anesthesia Plan Anesthesia Risk discussed: Yes Anesthesia Plan: Verified ASA Class: III Anesthesia Type: MAC [facility] History I have reviewed the patient's past medical history: Yes Medical History: Reports:: Aneurysm, Arrhythmia, Asthma, Atrial Fibrillation, Cancer (skin cancer), Congestive Heart Failure, Chronic Obstructive Pulmonary Disease (COPD), Cerebrovascular Accident, Diabetes Mellitus Type 2, Hyperlipidemia, Hypertension, Internal Pacemaker, Lung Disease, Renal Disease, Transient Ischemic Attacks (TIA), Tuberculosis Denies:: Diabetes Mellitus Type 1, MRSA, Seizures *Have you ever received a pneumonia vaccine?: Yes *Have you received a flu vaccine this season?: No Other Medical History: Reports: Arthritis, Cataracts, Fibromyalgia. Denies: Blood Transfusion Reaction Anesthesia experience/problems:: none Laterality Cases: Right: Arthroscopy Shoulder, Bilateral: Carpal Tunnel Release, Tonsillectomy Other Surgeries: Yes: Cancer Surgery, Cardiac Catheterization, Colonoscopy, Colon Resection, Hysterectomy-Total, Pacemaker, Other Amputation: No Fractures: No - *Social History Smoking Status: Never smoker Alcohol Intake: never Alcohol Intake Frequency:: other Substance Use Type: denies use *Occupational Status:: disabled Housing: house Household Members: spouse *Travel in the last 8 weeks: None Family Hx:: No significant family history
--- NOTE | 2020-07-15 08:34 | ECG_ITS ---
APPROVED REPORT Exam: Resting ECG HR:70 bpm ECG Measurements Heart Rate 70 AXES QRSd 198 QRS -58 QT 504 T 99 QTc 544 Conclusion AV sequential or dual chamber electronic pacemaker Electronically signed by : Jimy Conley, 07/20/2020 09:54:02
[2020-07-15 08:36] LABS: POC Glucose,Bedside 69 (70-110)
[2020-07-15 09:49] LABS: POC Glucose,Bedside 69 (70-110)
[2020-07-15 10:07] VITALS: BP 155/86; PULSE 72; RESP 18; TEMP 37.1; O2SAT 98
[2020-07-15 10:22] VITALS: BP 145/70; PULSE 70; RESP 18; O2SAT 97
[2020-07-15 10:37] VITALS: BP 151/76; PULSE 70; RESP 18; O2SAT 98
--- NOTE | 2020-07-15 10:47 | HMH.OPNOTE ---
Date of procedure: 07/15/20 Pre-op Diagnosis:: 1. Multiple posterior right ear lesions 2. Lesion right ear anteriorly 1.5 cm Post-op Diagnosis:: same Procedure performed:: 1. Excision multiple posterior lesions right ear 3.5 cm with tissue rearrangement repair 2. Excision of right ear anterior lesion 1.5 cm with tissue rearrangement geometric plastic repair Surgeon:: Que Manning MD MANAGER BAR:: Mayco Alvarez Anesthesia: MAC Estimated blood loss (mL): 10 Operative findings:: same Operative note:: The right ear was prepped and draped. The eyes were protected with Steri-Strips. The perilesional areas were infiltrated with a total of 6 cc of 2% lidocaine containing epinephrine. The right ear posterior lesion measured 3.5 cm. There were multiple foci in that area and they were all excised in continuity. Bleeding was stopped with bipolar cautery. This anterior and inferior incisions were made and a tissue rearrangement geometric plastic repair was done of the excisional area after Surgicel snow was placed in the defect. The repair was done with 4-0 nylon sutures and a Dermabond dressing was applied. The right ear anterior lesion which measured 1.5 cm was marked out and the gricelda out was incised and the lesion was excised and submitted. Bleeding was stopped with bipolar cautery. Total bleeding for all the procedure was 10 cc and completely stopped. Superior and inferior incisions were made and a tissue rearrangement geometric plastic repair was done using 4-0 nylon sutures. A Dermabond dressing was applied and the patient was sent to recovery in good general condition. Condition: stable Disposition: PACU Complications:: none
== END 2020-07-15 10:37 | disposition home or self-care (01) ==
LOC: OR 06:58
PROVIDERS: PCP Internal Medicine; Visit Provider Otolaryngology
PROC: (CPT 11444; principal; 2020-07-15 08:15)
DX: L82.1 Other seborrheic keratosis; R52 Pain, unspecified; E11.9 Type 2 diabetes mellitus without complications; I11.0 Hypertensive heart disease with heart failure; I50.9 Heart failure, unspecified; K21.9 Gastro-esophageal reflux disease without esophagitis; J45.909 Unspecified asthma, uncomplicated; Z86.73 Personal history of transient ischemic attack (TIA), and cerebral infarction without residual deficits; Z95.0 Presence of cardiac pacemaker; Z90.49 Acquired absence of other specified parts of digestive tract; Z79.899 Other long term (current) drug therapy; D64.9 Anemia, unspecified
CPT/HCPCS: 11444; 14060; 82962; 88305; 93005; 96374

== ENCOUNTER 2020-07-18 15:17 | Emergency (ER) | payer MEDICARE, SELFPAY ==
[2020-07-18 15:18] VITALS: BP 128/98; PULSE 85; RESP 28; TEMP 38.7; O2SAT 90; BMI 30.2
--- NOTE | 2020-07-18 15:31 | ECG_ITS ---
APPROVED REPORT Exam: Resting ECG HR:85 bpm ECG Measurements Heart Rate 85 AXES QRSd 144 QRS -62 QT 422 T 108 QTc 502 Conclusion Electronic ventricular pacemaker Electronically signed by : Geovany Medel, 08/04/2020 16:43:01
--- NOTE | 2020-07-18 15:55 | CT_ITS ---
PROCEDURE: CT CHEST WO CON CLINICAL INDICATION: SHORT OF BREATH Shortness of air COMPARISON: No exams were available for comparison TECHNIQUE: Axial images obtained with sagittal and coronal reformats. All CT scans at the facility use one or more dose reduction, viz: automated exposure control, ma/kV adjustment per patient size (including targeted exams where dose is matched to indication, i.e. head), or iterative reconstruction technique. FINDINGS: Cardiac pacemaker device is present from left subclavian approach. There is mild cardiomegaly. Coronary artery calcifications are present. There is a 9 mm nodular opacity in the right middle lobe medially adjacent to pericardial fat pad.. There is trace right-sided effusion. Minimal atelectatic changes are present in the right lung base laterally. No lobar consolidation or collapse. Mild atelectatic or fibrotic changes are present in the left lower lobe. There are mild degenerative changes in the thoracic spine with ankylosis of the thoracic spine. Mild thoracic curvature convex right. Show a 1.4 cm nodule of the left adrenal gland measuring near water density consistent with an adenoma. There are post cholecystectomy changes. IMPRESSION: 1. Cardiomegaly with coronary artery calcifications with a bipolar pacer in place. 2. Trace right effusion. Minimal left lower lobe atelectatic or fibrotic changes. 3. Nonspecific 9 mm parenchymal opacity right middle lobe. Six-month follow-up suggested. Dictated by: Ravinder Smith MD 07/18/2020 16:35 Ravinder Smith MD in [place] 07/18/2020 16:35
--- NOTE | 2020-07-18 16:16 | HMH.EDSOB ---
ED Disposition Clinical Impression: Acute exacerbation of CHF (congestive heart failure) Qualifiers: Heart failure type: systolic Qualified Code(s): I50.23 - Acute on chronic systolic (congestive) heart failure Disposition: Home, Self-Care Condition on Discharge: Fair Instructions: DI for Shortness of Breath Additional Instructions: Labs show normal CBC with a white blood cell count of 8.4 electrolytes are essentially normal have chronic renal failure lactic acid is 1.4 which is within normal limits troponin is normal at 0.01 BNP is elevated at 2480 this is a chronic problem for her COVID-[address] of chest shows: 1. Cardiomegaly with coronary artery calcifications with a bipolar pacer in place. 2. Trace right effusion. Minimal left lower lobe atelectatic or fibrotic changes. 3. Nonspecific 9 mm parenchymal opacity right middle lobe. Six-month follow-up suggested. She was given 40 mg of IV Lasix and that she has urinated a large amount of urine and is feeling better; plan is to send her home with advised to take Lasix for shortness of breath as needed Referrals: Geovany Medel [Primary Care Provider] - Time of Disposition: 18:04 - Critical Care Critical Care Time: No Attestation: On 07/18/20, the high probability of a clinically significant, sudden or life threatening deterioration of the following system(s) required my full and direct attention, intervention and personal management. The time I documented below is in addition to time spent performing reported procedures but includes the following listed in this critical care notation. Medical Decision Making - Medical Records Medical records reviewed: Yes: I reviewed the patient's medical records. MR Comment: Pt was sent over by dr Medel for evaluation due to complaints of shortness of breath, and fever and chills for 4 days. Labs show normal CBC with a white blood cell count of 8.4 electrolytes are essentially normal have chronic renal failure lactic acid is 1.4 which is within normal limits troponin is normal at 0.01 BNP is elevated at 2480 this is a chronic problem for her COVID-[address] of chest shows: 1. Cardiomegaly with coronary artery calcifications with a bipolar. pacer in place. 2. Trace right effusion. Minimal left lower lobe atelectatic or. fibrotic changes. 3. Nonspecific 9 mm parenchymal opacity right middle lobe. Six-month. follow-up suggested. She was given 40 mg of IV Lasix and that she has urinated a large amount of urine and is feeling better plan is to send her home with advised to take Lasix for shortness of breath as needed - Abraham Inquiry Pt receiving controlled substance: No Vital Signs: 07/18/20 15:18 07/18/20 16:31 07/18/20 17:05 Temperature 101.7 F H Temperature Source Oral Pulse Rate [Radial] 85 76 77 Respiratory Rate 28 H 26 H 24 Blood Pressure [Right Arm] 128/98 H 128/49 L 152/81 H Blood Pressure Mean [Right Arm] 108 75 104 Blood Pressure Source [Right Arm] Automatic Cuff Automatic Cuff Blood Pressure Position [Right Arm] Sitting Sitting Sitting 02 Sat by Pulse Oximetry 90 L 97 94 L Oxygen Delivery Method Room Air Nasal Cannula Nasal Cannula Oxygen Flow Rate (LPM) 2 2 - Lab Data Lab Results 07/18/20 16:00: WBC 8.4, RBC 3.57 L, Hgb 10.5 L, Hct 34.5 L, MCV 96.7, MCH 29.3, MCHC 30.3 L, RDW 14.8, Plt Count 167, MPV 8.6, Neut % (Auto) 76.7, Lymph % (Auto) 17.2, [place] % (Auto) 4.2, Eos % (Auto) 1.5, Baso % (Auto) 0.3, Neut # (Auto) 6.4, Lymph # (Auto) 1.5, [place] # (Auto) 0.4, Eos # (Auto) 0.1, Baso # (Auto) 0.0 07/18/20 16:00: Sodium 141, Potassium 4.2, Chloride 102, Carbon Dioxide 32 H, Anion Gap 11.2, BUN 25 H, Creatinine 1.30 H, Estimated Creat Clear 50, Estimated GFR 40 L, Est GFR ( Amer) 49 L, Glucose 116 H, Calcium 8.9 07/18/20 16:00: Total Bilirubin 0.8, Direct Bilirubin 0.1, Conjugated Bilirubin 0.0, Indirect Bilirubin 0.7, Unconjugated Bilirubin 0.7, AST 23, ALT 12, Alkaline Rahul
[2020-07-18 16:29] LABS: Basophils % 0.3 % (0.1-2.0); Eosinophils # 0.1 K/mm3 (0.0-0.4); Eosinophils % 1.5 % (0.1-12.0); Hematocrit 34.5 % (37.0-47.0); Hemoglobin 10.5 g/dL (12.2-16.2); Lymphocytes # 1.5 K/mm3 (0.7-4.5); Lymphocytes % 17.2 % (10-50); Mean Corpuscular HGB Conc 30.3 g/dL (31.8-35.4); Mean Corpuscular Hemoglobin 29.3 pg (27.0-31.2); Mean Corpuscular Volume 96.7 fl (81-99); Mean Platelet Volume 8.6 fl (7.4-10.4); Monocytes # 0.4 K/mm3 (0.1-1.0); Monocytes % 4.2 % (1.7-9.3); Neutrophils # 6.4 K/mm3 (1.8-7.8); Neutrophils % 76.7 % (37.0-80.0); Platelet Count 167 K/mm3 (142-424); Red Blood Count 3.57 M/mm3 (4.20-5.40); Red Cell Distribution Width 14.8 % (11.5-17.5); White Blood Count 8.4 K/mm3 (4.8-10.8)
[2020-07-18 16:30] LABS: Potassium 4.2 mmoL/L (3.5-5.1); Sodium 141 mmol/L (136-145)
[2020-07-18 16:31] VITALS: BP 128/49; PULSE 76; RESP 26; O2SAT 97
[2020-07-18 16:32] LABS: Chloride 102 mmol/L (98-107)
[2020-07-18 16:33] LABS: Anion Gap 11.2 mEq/L (5-15); Blood Urea Nitrogen 25 mg/dl (7-17); Carbon Dioxide 32 mmol/L (22.0-30.0); Creatinine Clearance Estimated 50 mL/min (50-200); Estimated Glomerular Filt Rate 40 ml/min (>60); GFR (African American) 49 ML/MIN (>60)
[2020-07-18 16:34] LABS: Alanine Aminotransferase 12 U/L (12-78); Albumin Level 3.7 g/dl (3.5-5.0); Alkaline Phosphatase 95 U/L (38-126); Aspartate Amino Transferase 23 U/L (14-36); Bilirubin,Direct 0.1 mg/dl (0.0-0.4); Bilirubin,Indirect 0.7 mg/dL (0.0-0.9); Bilirubin,Total 0.8 mg/dl (0.2-1.3); Bilirubin,Unconjugated 0.7 mg/dL (0.0-1.1); Calcium 8.9 mg/dl (8.4-10.2); Glucose 116 mg/dl (74-100); Total Protein,Serum 6.8 g/dl (6.3-8.2)
[2020-07-18 16:40] LABS: Lactic Acid 1.4 mmol/L (0.7-2.1)
[2020-07-18 16:43] LABS: NT Pro Brain Natriuretic Pep. 2480 pg/mL (0-125)
[2020-07-18 16:50] LABS: Troponin I < 0.01 ng/ml (0.00-0.034)
[2020-07-18 17:05] VITALS: BP 152/81; PULSE 77; RESP 24; O2SAT 94
[2020-07-18 17:19] LABS: Coronavirus 19 IgG Antibody Negative (Negative); Coronavirus 19 IgM Antibody Negative (Negative)
[2020-07-18 18:21] VITALS: BP 138/63; PULSE 78; RESP 18; TEMP 36.7; O2SAT 93
== END 2020-07-18 18:42 | disposition home or self-care (01) ==
PROVIDERS: Emergency Provider Emergency Medicine; PCP Internal Medicine
DX: I50.23 Acute on chronic systolic (congestive) heart failure (principal); E11.9 Type 2 diabetes mellitus without complications; Z79.4 Long term (current) use of insulin; Z20.828 Contact with and (suspected) exposure to other viral communicable diseases; I48.91 Unspecified atrial fibrillation; J44.9 Chronic obstructive pulmonary disease, unspecified; E78.5 Hyperlipidemia, unspecified; I10 Essential (primary) hypertension; Z95.0 Presence of cardiac pacemaker; M79.7 Fibromyalgia; Z79.899 Other long term (current) drug therapy
CPT/HCPCS: 71250; 80048; 80076; 83605; 83880; 84484; 85025; 86328; 87040; 93005; 96374; 99284

== ENCOUNTER → 2020-07-22 10:56 | Outpatient (CLI) | payer MEDICARE, SELFPAY ==
[2020-07-22 12:37] LABS: Chloride 102 mmol/L (98-107); Potassium 3.8 mmoL/L (3.5-5.1); Sodium 139 mmol/L (136-145)
[2020-07-22 12:40] LABS: Anion Gap 11.8 mEq/L (5-15); Blood Urea Nitrogen 27 mg/dl (7-17); Calcium 8.5 mg/dl (8.4-10.2); Carbon Dioxide 29 mmol/L (22.0-30.0); Estimated Glomerular Filt Rate 40 ml/min (>60); GFR (African American) 49 ML/MIN (>60); Glucose 94 mg/dl (74-100)
== END ==
PROVIDERS: Visit Provider Internal Medicine
DX: E11.42 Type 2 diabetes mellitus with diabetic polyneuropathy (principal); E78.5 Hyperlipidemia, unspecified; Z79.4 Long term (current) use of insulin
CPT/HCPCS: 36415; 80048

== ENCOUNTER 2020-08-16 18:37 | Emergency (ER) | payer MEDICARE, SELFPAY ==
--- NOTE | 2020-08-16 18:43 | XR_ITS ---
PROCEDURE: XR CHEST PORTABLE CLINICAL HISTORY: COUGH COMPARISON: PA and lateral chest 12/22/2019 and portable upright chest 07/30/2019 FINDINGS: The lung freedman are fairly well expanded. There are subtle ill-defined opacities right perihilar region and right lower lobe upper lung freedman clear in the left lung field is clear. There is stable mild generalized cardiomegaly. The left-sided cardiac pacemaker is again noted with dual chamber electrodes both in good position. IMPRESSION: Findings suggesting minimal right perihilar and right lower lobe bronchopneumonia Dictated by: Dr. Andrea Salmeron MD 08/17/2020 07:33 Dr. Andrea Salmeron MD in [place] 08/17/2020 07:33
[2020-08-16 18:46] VITALS: BP 145/76; PULSE 83; RESP 23; TEMP 36.6; O2SAT 94; BMI 32.4
--- NOTE | 2020-08-16 19:07 | HMH.EDUTC ---
[facility] [place] Clinical Impression: Bronchitis, Shortness of breath Sinusitis Qualifiers: Sinusitis location: unspecified location Chronicity: unspecified Qualified Code(s): J32.9 - Chronic sinusitis, unspecified Disposition: Home, Self-Care Condition on Discharge: Good Instructions: Sinusitis, Acute Bronchitis, DI for Sinusitis, Azithromycin Additional Instructions: ? Start antibiotic today. Be sure to complete entire prescription even if feeling better ? Monitor temp. Tylenol every 4 hours as needed and / or ibuprofen every 6 hours as needed ( As long as your primary care physician has told you that it ok to take both. For fever/aches/pains ER if no less than 101 despite Tylenol or Motrin ? Humidifier/vaporizer or hot steamy shower ? Inhaler/Nebulizer every 4-6 hours as needed like we discussed. If unsure how to use it, ask pharmacist to demonstrate how. Should help open airways and improve cough, wheezing, and shortness of breath ? Follow up IMMEDIATELY for new or worsening of symptoms OR no noticeable improvement over the next 48-72 hours. 911 immediately for any life threatening symptoms such as chest pain or difficulty breathing Prescriptions: Azithromycin [Z-Freddy 250mg Tab] 250 mg PO DIRECTED #6 tab Transmission Status: Received by [facility] Referrals: Geovany Medel [Primary Care Provider] - As needed Time of Disposition: 20:14 Medical Decision Making - Abraham Inquiry Pt receiving controlled substance: No Abraham was queried for this patient: No Vital Signs: 08/16/20 18:46 08/16/20 20:20 08/16/20 20:30 Temperature 97.8 F 97.8 F Temperature Source Oral Oral Pulse Rate 83 Pulse Rate [Radial] 83 Respiratory Rate 23 23 Blood Pressure 145/76 H Blood Pressure [Right Arm] 145/76 H Blood Pressure Mean [Right Arm] 99 Blood Pressure Source Automatic Cuff Blood Pressure Source [Right Arm] Automatic Cuff Blood Pressure Position Sitting Blood Pressure Position [Right Arm] Sitting 02 Sat by Pulse Oximetry 94 L 96 Oxygen Delivery Method Room Air Room Air Orders (Tests/Meds): ED MEDICATIONS Discontinued Medications Generic Name Dose Route Start Last Admin Trade Name Freq PRN Reason Stop Dose Admin Albuterol/Ipratropium 3 ml 08/16/20 19:29 08/16/20 19:44 Albuterol/Ipratropium 3 Ml Neb IH 08/16/20 19:30 3 ml ONCE ONE Administration Azithromycin 500 mg 08/16/20 20:13 08/16/20 20:29 Azithromycin 250mg Tablet PO 08/16/20 20:14 500 mg ONCE ONE Administration Protocol Ceftriaxone Sodium 1 gm 08/16/20 19:31 08/16/20 19:45 Ceftriaxone 1gm Vial IM 08/16/20 19:32 1 gm ONCE ONE Administration Protocol Lidocaine HCl 0 ml 08/16/20 19:31 08/16/20 19:45 Lidocaine 1% 5ml Pf Vial IM 08/16/20 19:32 2.1 ml ONCE ONE Administration Methylprednisolone Sodium Succinate 125 mg 08/16/20 19:30 08/16/20 19:44 Methylprednisolone Sod Succ 125mg Vial IM 08/16/20 19:31 125 mg ONCE ONE Administration ORDERS Category Date Time Status Chest XR -- portable [XR chest portable] Stat Exams 08/16/20 18:43 Taken - Radiology Data #1 Image(s): Chest Image Reviewed: Yes I reviewed the patient's radiology image w/the ED provider Discussed with ED physician and advised no definative changes, possible brochitis Medical Decision Narrative: Discussed with patient multiple times that we recommended transfer to the ED for more extensive lab work and treatment and patient refused Again discussed chest xray with patient and recommended transfer to the ED for further evaluation and treatment and patient refused Patient states that she is a diabetic but has taken Solu Medrol in the past and aware that it may elevated her blood sugar and has taken it without complications Patient given neb, solu medrol injection and Rocephin that patient states that she has taken before without complications or reactions and patient states that she is feeling
[2020-08-16 20:20] VITALS: O2SAT 96
[2020-08-16 20:30] VITALS: BP 145/76; PULSE 83; RESP 23; TEMP 36.6; O2SAT 96
== END 2020-08-16 20:32 | disposition home or self-care (01) ==
PROVIDERS: Emergency Provider Nurse Practitioner; PCP Internal Medicine
DX: J44.0 Chronic obstructive pulmonary disease with (acute) lower respiratory infection (principal); J20.9 Acute bronchitis, unspecified; I50.9 Heart failure, unspecified; I48.20 Chronic atrial fibrillation, unspecified; E11.9 Type 2 diabetes mellitus without complications; I10 Essential (primary) hypertension; E78.5 Hyperlipidemia, unspecified; Z86.73 Personal history of transient ischemic attack (TIA), and cerebral infarction without residual deficits; Z95.0 Presence of cardiac pacemaker; Z79.899 Other long term (current) drug therapy; Z88.2 Allergy status to sulfonamides; Z88.8 Allergy status to other drugs, medicaments and biological substances
CPT/HCPCS: G0463; 71045; 96372; 99202

== ENCOUNTER → 2020-09-02 15:38 | Outpatient (CLI) | payer MEDICARE, SELFPAY ==
--- NOTE | 2020-09-02 15:45 | XR_ITS ---
PROCEDURE: XR CHEST 2V CLINICAL HISTORY: COUGH/FEVER COMPARISON: No exams were available for comparison FINDINGS: There is cardiomegaly without failure. Bipolar pacemaker is present from left subclavian approach. No lobar consolidation or collapse. There are degenerative changes in the thoracic spine. IMPRESSION: As above, no acute finding Dictated by: Ravinder Smith MD 09/02/2020 16:43 Ravinder Smith MD in [place] 09/02/2020 16:43
[2020-09-04 10:03] LABS: Covid-19 Nasal PCR Sendout Lex NOT DETECTED
== END ==
PROVIDERS: PCP Internal Medicine; Visit Provider Internal Medicine
DX: Z03.818 Encounter for observation for suspected exposure to other biological agents ruled out (principal); R09.89 Other specified symptoms and signs involving the circulatory and respiratory systems; R05 Cough; R50.9 Fever, unspecified
CPT/HCPCS: 71046; U0004

== ENCOUNTER → 2020-09-24 15:20 | Outpatient (CLI) | payer MEDICARE, SELFPAY ==
--- NOTE | 2020-09-24 15:33 | XR_ITS ---
PROCEDURE: XR SHOULDER RT MIN 2V CLINICAL INDICATION: FALL 09/23/20 Posttraumatic pain COMPARISON: CR SHOU3L [id number] VIEWS from 08/01/2013 CR SHOU3L [id number] VIEWS from 10/20/2013 CR SHOU3L [id number] VIEWS from 03/07/2014 CR SHOU3L [id number] VIEWS from 04/26/2014 FINDINGS: Osteoarthritic changes of the AC joint and glenohumeral joint. No acute fracture or dislocation. Other findings:None. IMPRESSION: Osteoarthritis otherwise negative Dictated by: Ravinder Smith MD 09/24/2020 16:15 Ravinder Smith MD in [place] 09/24/2020 16:15
--- NOTE | 2020-09-24 15:34 | XR_ITS ---
PROCEDURE: XR HIP RT 2-3V W/PELVIS CLINICAL INDICATION: PT FELL 09/23/20 Posttraumatic pain COMPARISON: CR HIPCMRT XR hip RT 2-3V w/pelvis from 02/08/2018 FINDINGS: Mild osteoarthritic changes. No acute fracture or dislocation. Surgical clips are present in the lower abdomen. IMPRESSION: Mild osteoarthritis Dictated by: Ravinder Smith MD 09/24/2020 16:14 Ravinder Smith MD in [place] 09/24/2020 16:14
--- NOTE | 2020-09-24 15:35 | XR_ITS ---
PROCEDURE: XR LUMBAR SPINE MIN 4V CLINICAL INDICATION: PT FELL 09/23/20 Fall with injury and pain COMPARISON: CR [id number] XR lumbar spine min 4V from 08/08/2018 FINDINGS: Postsurgical changes with inter pedicular screws and connecting rods at L3 and L2. 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 Disc spacer is present at L4-5. There is mild lumbar curvature convex left. There is generalized vascular calcification. Surgical clips present in the left mid abdominal region and left lower quadrant IMPRESSION: Degenerative and postsurgical changes. No acute fracture or other significant change. Dictated by: Ravinder Smith MD 09/24/2020 16:13 Ravinder Smith MD in [place] 09/24/2020 16:13
== END ==
PROVIDERS: PCP Internal Medicine; Visit Provider Internal Medicine
DX: M25.511 Pain in right shoulder (principal); M25.551 Pain in right hip; M54.5 Low back pain; W19.XXXA Unspecified fall, initial encounter
CPT/HCPCS: 72110; 73030; 73502

== ENCOUNTER → 2020-10-24 10:02 | Outpatient (CLI) | payer MEDICARE, SELFPAY ==
--- NOTE | 2020-10-24 10:07 | MM_ITS ---
PROCEDURE: MM DIG MAMM DX UNILAT RT CAD Digital Breast Tomosynthesis Included CLINICAL INDICATION: RT BREAST CYST/NODULE,6 MONTH F/U COMPARISON: MG SCBI MM Dig screening mamm BI w/CAD from 07/13/2018 MG MM DIG SCREENING MAMM BI W/CAD from 04/14/2020 MG MM DIG MAMM DX UNILAT RT CAD from 05/07/2020 US US BREAST RT COMPLETE from 10/24/2020 TECHNIQUE: Standard CC and MLO images and 3D Tomosynthesis was obtained. R2 CAD reviewed. Spot compression MLO and CC views were obtained as well FINDINGS: The previously noted small nodular densities best seen on the spot MLO view are not definitely seen on the current study. Ultrasound showed that these were likely small cyst and they may have decompressed. Ultrasound performed the same date shows several tiny cysts most at the 9 to 10 o'clock position with no suspicious solid lesions seen. Again noted is moderate arterial calcification and few scattered benign-appearing microcalcifications. IMPRESSION: Probable interval decompression of small cystic structures seen on the previous mammogram though small cystic lesions are still seen on ultrasound. Recommend the patient return to normal yearly screening mammography BI-RAD Category: 1 Negative FOLLOW-UP: 6M 6Month Follow-up to return to normal screening schedule (A letter has been sent to the patient regarding results of the study.) Dictated by: Dr. Andrea Salmeron MD 10/30/2020 08:19 Dr. Andrea Salmeron MD in [place] 10/30/2020 08:19
--- NOTE | 2020-10-24 10:08 | US_ITS ---
PROCEDURE: US BREAST RT COMPLETE CLINICAL INDICATION: RT BREAST CYST/NODULE,6 MONTH F/U COMPARISON: US US BREAST RT COMPLETE from 05/07/2020 FINDINGS: Multiple tiny hypoechoic cystic lesions are again seen in the breast. The small cystic lesion at the 12 o'clock position outer breast is stable and unchanged currently measuring 0.5 x 0.3 by 0.5 cm. There is a tiny 0.3 x 0.4 x 0.2 cm cyst at the 1 o'clock position outer breast. The cystic structure at the 9 o'clock position outer breast is stable measuring 0.4 x 0.5 by 0.6 cm. There is a 2nd somewhat oval hypoechoic cystic structure in the 9 o'clock position outer breast measuring 0.5 by 0.9 x 0.3 cm. There is a similar cystic structure at the 10 o'clock position outer breast measuring 0.8 by 0.8 x 0.5 cm. There is no suspicious solid lesion. There are normal appearing nodes in the axilla. IMPRESSION: Ultrasound confirmation of multiple tiny benign-appearing cysts Dictated by: Dr. Andrea Salmeron MD 10/30/2020 08:23 Dr. Andrea Salmeron MD in [place] 10/30/2020 08:23
== END ==
LOC: RAD 10:02
PROVIDERS: PCP Internal Medicine; Visit Provider Internal Medicine
DX: R92.8 Other abnormal and inconclusive findings on diagnostic imaging of breast (principal)
CPT/HCPCS: 76641; 77061; 77065; G0279

== ENCOUNTER → 2020-12-02 08:38 | Outpatient (CLI) | payer MEDICARE, SELFPAY ==
--- NOTE | 2020-12-02 08:41 | US_ITS ---
PROCEDURE: US ABDOMEN COMPLETE CLINICAL INDICATION: EPIGASTRIC PAIN COMPARISON: CT CT CHEST WO CON from 07/18/2020 FINDINGS: PANCREAS: Unremarkable. No obvious mass or abnormal fluid collection. No ductal dilatation LIVER: No focal liver lesions demonstrated. Homogeneous echogenicity. There is some minimal prominence of the bile ducts in the left hepatic lobe which is nonspecific.. There is appropriate direction of blood flow within a non dilated portal vein RIGHT KIDNEY: Unremarkable. Normal size and echogenicity. No hydronephrosis LEFT KIDNEY: Unremarkable. Normal size and echogenicity. No hydronephrosis GALLBLADDER: Status post cholecystectomy. Common bile duct is normal at 7 mm. AORTA: No evidence of aneurysmal dilatation. SPLEEN: Unremarkable. Normal size and echogenicity ASCITES: None demonstrated. IMPRESSION: Status post cholecystectomy Minimal prominence of the biliary tree in the left hepatic lobe of questionable clinical significance. MRI of the liver without and gadolinium with MRCP may further evaluate if clinically desired. Dictated by: Ravinder Smith MD 12/02/2020 18:07 Ravinder Smith MD in [place] 12/02/2020 18:07
--- NOTE | 2020-12-02 08:41 | FL_ITS ---
PROCEDURE: FL UPPER GI CLINICAL INDICATION: EPIGASTRIC PAIN Feels like food gets stuck in the chest COMPARISON: No exams were available for comparison TECHNIQUE: FLUOROSCOPY TIME : 54 seconds FINDINGS: The esophagus, stomach, and duodenum have an unremarkable appearance.There is no evidence of hiatal hernia. No ulcer or mass evident. No mucosal abnormalities apparent. There is normal peristalsis. The duodenal C-loop is nondisplaced.. Postsurgical changes are present in the lumbar spine. IMPRESSION: Negative upper GI Dictated by: Ravinder Smith MD 12/02/2020 17:21 Ravinder Smith MD in [place] 12/02/2020 17:21
== END ==
LOC: RAD 08:38
PROVIDERS: PCP Internal Medicine; Visit Provider Internal Medicine
DX: R10.13 Epigastric pain (principal)
CPT/HCPCS: 74246; 76700

== ENCOUNTER → 2021-01-21 14:46 | Outpatient (CLI) | payer MEDICARE, SELFPAY ==
[2021-01-21 15:46] LABS: Coronavirus 19 IgG Antibody Positive (Negative); Coronavirus 19 IgM Antibody Negative (Negative)
== END ==
PROVIDERS: Visit Provider Urology
DX: R32 Unspecified urinary incontinence (principal); Z01.812 Encounter for preprocedural laboratory examination; Z20.822 Contact with and (suspected) exposure to COVID-19
CPT/HCPCS: 36415; 86328

== ENCOUNTER 2021-01-23 07:10 | Day surgery (SDC) | payer MEDICARE, SELFPAY ==
[2021-01-20 09:20] VITALS: BMI 31.6
[2021-01-23 07:32] VITALS: BP 124/48; PULSE 68; RESP 18; TEMP 36.6; O2SAT 95
[2021-01-23 07:44] LABS: POC Glucose,Bedside 118 (70-110)
[2021-01-23 08:46] VITALS: BP 120/78; PULSE 70; RESP 17; TEMP 36.4; O2SAT 95
[2021-01-23 08:56] VITALS: BP 120/78; PULSE 70; RESP 18; O2SAT 95
--- NOTE | 2021-01-23 10:04 | HMH.OPNOTE ---
Date of procedure: 01/23/21 Pre-op Diagnosis:: Enuresis/low urine output Post-op Diagnosis:: Enuresis/urethral stenosis Procedure performed:: Cystoscopy with urethral dilation Surgeon:: Harpal Bolivar MD Anesthesia: local Estimated blood loss (mL): 0 Clinical Note:: 75-year-old white female with recent complaints of small amount of leakage at night while sleeping as well as a decreased urine output during the day despite Lasix use. Her bladder scan in the office showed a residual of 0. Voiding diary was performed and it does appear she is taking in adequate amounts of fluids (60-70 ounces). Her urine output appears to be about half of that. Operative findings:: Cystoscopy revealed normal-appearing bladder. Urethra was mildly stenotic and was dilated without difficulty. Operative note:: Patient taken to the cystoscopy suite after informed consent was obtained. On the stretcher she was placed into the frog-leg position and she was prepped and draped in the standard surgical fashion and 2% lidocaine placed into the urethra. After 5 minutes the flexible cystoscope passed into the urethral meatus and into the bladder without difficulty. The bladder was examined in a systematic fashion. There was no evidence of cellules, trabeculation, stones or mucosal abnormalities. The ureteral orifices in their normal anatomic position with clear efflux of urine. The bladder neck was normal. There was some mild resistance to passage of the 16 [place] scope. Scope removed patient then dilated with a 2224 and 26 female sounds. She tolerated well and discharged to recovery in stable condition. Condition: stable Disposition: same day Specimens:: None Complications:: None
== END 2021-01-23 09:01 | disposition home or self-care (01) ==
LOC: OUTP 07:10
PROVIDERS: PCP Internal Medicine; Visit Provider Urology
PROC: 0TJB8ZZ Inspection of Bladder, Via Natural or Artificial Opening Endoscopic (ICD-10-PCS; CPT 52000; principal; 2021-01-23 08:00)
DX: N39.44 Nocturnal enuresis (principal); R39.15 Urgency of urination; R32 Unspecified urinary incontinence; N35.92 Unspecified urethral stricture, female; Z79.899 Other long term (current) drug therapy; Z79.4 Long term (current) use of insulin; I48.91 Unspecified atrial fibrillation; I11.0 Hypertensive heart disease with heart failure; I50.9 Heart failure, unspecified; J44.9 Chronic obstructive pulmonary disease, unspecified; E78.5 Hyperlipidemia, unspecified; Z95.0 Presence of cardiac pacemaker
CPT/HCPCS: 52281; 82962

== ENCOUNTER 2021-05-28 14:56 | Emergency (ER) | payer MEDICARE, SELFPAY ==
[2021-05-28 14:57] VITALS: BP 130/69; PULSE 70; RESP 22; TEMP 37.2; O2SAT 93; BMI 30.7
--- NOTE | 2021-05-28 15:12 | XR_ITS ---
PROCEDURE: XR CHEST PORTABLE CLINICAL HISTORY: sob COMPARISON: CR XR CHEST 2V from 12/22/[address] CHEST WO CON from 07/18/2020 CR XR CHEST PORTABLE from 08/16/2020 CR XR CHEST 2V from 09/02/2020 FINDINGS: There is cardiomegaly with a bipolar pacemaker in place in adequate position. No evidence of CHF. No lobar consolidation or collapse. The nonspecific opacity is noted overlying the right 2nd rib anteriorly and may be due to costochondral attenuation. Follow-up PA and lateral chest may confirm. No acute bony findings. IMPRESSION: Cardiomegaly without failure. Please see above for detail Dictated by: Ravinder Smith MD 05/28/2021 15:49 Ravinder Smith MD in [place] 05/28/2021 15:49
[2021-05-28 15:16] LABS: Coronavirus 19, PCR Not Detected (NotDetected); Influenza A, PCR Not Detected (NotDetected); Influenza B, PCR Not Detected (NotDetected)
--- NOTE | 2021-05-28 15:56 | ECG_ITS ---
APPROVED REPORT Exam: Resting ECG HR:70 bpm ECG Measurements Heart Rate 70 AXES MT 132 P 119 QRSd 150 QRS -54 QT 472 T 135 QTc 509 Conclusion Electronic ventricular pacemaker Electronically signed by : Jimy Conley MD 05/29/2021 18:55:07
[2021-05-28 16:02] LABS: Adenovirus,PCR Not Detected (NotDetected); Bordetella Pertussis Not Detected (NotDetected); Chlamydophila Pneumoniae, PCR Not Detected (NotDetected); Coronavirus 229E Not Detected (NotDetected); Coronavirus NL63 Not Detected (NotDetected); Coronavirus OC43 Not Detected (NotDetected); Coronovirus HKU1,PCR Not Detected (NotDetected); Human Metapneumovirus Not Detected (NotDetected); Influenza A, PCR Not Detected (NotDetected); Influenza AH1, 2009 Not Detected (NotDetected); Influenza AH1, PCR Not Detected (NotDetected); Influenza AH3,PCR Not Detected (NotDetected); Influenza B, PCR Not Detected (NotDetected); Mycoplasma Pneumoniae, PCR Not Detected (NotDetected); Parainfluenza 1, PCR Not Detected (NotDetected); Parainfluenza 2, PCR Not Detected (NotDetected); Parainfluenza 3, PCR Not Detected (NotDetected); Parainfluenza 4, PCR Not Detected (NotDetected); Respiratory Syncytial Virus Not Detected (NotDetected); Rhinovirus/Enterovirus Not Detected (NotDetected)
[2021-05-28 16:03] LABS: Basophils % 0.2 % (0.1-2.0); Eosinophils # 0.3 K/mm3 (0.0-0.4); Eosinophils % 3.3 % (0.1-12.0); Hematocrit 34.5 % (37.0-47.0); Hemoglobin 10.6 g/dL (12.2-16.2); Lymphocytes # 2.2 K/mm3 (0.7-4.5); Mean Corpuscular HGB Conc 30.9 g/dL (31.8-35.4); Mean Corpuscular Hemoglobin 30.9 pg (27.0-31.2); Mean Platelet Volume 8.7 fl (7.4-10.4); Monocytes # 0.4 K/mm3 (0.1-1.0); Neutrophils % 67.5 % (37.0-80.0); Platelet Count 202 K/mm3 (142-424); Red Blood Count 3.45 M/mm3 (4.20-5.40); White Blood Count 8.9 K/mm3 (4.8-10.8)
[2021-05-28 16:12] LABS: Alanine Aminotransferase 12 U/L (12-78); Albumin Level 3.6 g/dl (3.5-5.0); Albumin/Globulin Ratio 1.2 (1.1-1.8); Alkaline Phosphatase 105 U/L (38-126); Anion Gap 14.4 mEq/L (5-15); Aspartate Amino Transferase 22 U/L (14-36); Bilirubin,Total 0.5 mg/dl (0.2-1.3); Blood Urea Nitrogen 18 mg/dl (7-17); Calcium 8.6 mg/dl (8.4-10.2); Carbon Dioxide 31 mmol/L (22.0-30.0); Chloride 100 mmol/L (98-107); Creatinine Clearance Estimated 50 mL/min (50-200); Estimated Glomerular Filt Rate 40 ml/min (>60); GFR (African American) 48 ML/MIN (>60); Globulin 3.1 g/dL (1.3-3.2); Glucose 93 mg/dl (74-100); Potassium 4.4 mmoL/L (3.5-5.1); Sodium 141 mmol/L (136-145); Total Protein,Serum 6.7 g/dl (6.3-8.2)
[2021-05-28 16:23] LABS: NT Pro Brain Natriuretic Pep. 1630 pg/mL (0-125)
[2021-05-28 16:28] LABS: Troponin I < 0.01 ng/ml (0.00-0.034)
--- NOTE | 2021-05-28 16:33 | HMH.EDGENADL ---
ED Disposition Clinical Impression: Acute exacerbation of chronic obstructive airways disease Disposition: Home, Self-Care Condition on Discharge: Good Prescriptions: Azithromycin [Azithromycin 500mg Tab] 500 mg PO DAILY #5 tab Transmission Status: Pending to [facility] predniSONE [Prednisone 20mg Tab] 40 mg PO DAILY #10 tab Transmission Status: Pending to [facility] Referrals: Geovany Medel [Primary Care Provider] - 3 days Time of Disposition: 16:51 - Critical Care Critical Care Time: No Attestation: On 05/28/21, the high probability of a clinically significant, sudden or life threatening deterioration of the following system(s) required my full and direct attention, intervention and personal management. The time I documented below is in addition to time spent performing reported procedures but includes the following listed in this critical care notation. Medical Decision Making - Medical Records Medical records reviewed: Yes: I reviewed the patient's medical records. - Abraham Inquiry Pt receiving controlled substance: No Vital Signs: 05/28/21 14:57 Temperature 99.0 F Temperature Source Oral Pulse Rate [Left] 70 Respiratory Rate 22 Blood Pressure [Right Arm] 130/69 Blood Pressure Mean [Right Arm] 89 Blood Pressure Source [Right Arm] Automatic Cuff 02 Sat by Pulse Oximetry 93 L Oxygen Delivery Method Room Air - Lab Data Lab results reviewed: Yes: I reviewed the patient's lab results. Lab Results 05/28/21 15:06: SARS-CoV-2 (PCR) Not detected, Influenza A Untype (PCR) Not detected, Influenza Type B (PCR) Not detected 05/28/21 15:50: WBC 8.9, RBC 3.45 L, Hgb 10.6 L, Hct 34.5 L, MCV 100.0 H, MCH 30.9, MCHC 30.9 L, RDW 15.0, Plt Count 202, MPV 8.7, Neut % (Auto) 67.5, Lymph % (Auto) 25.0, [place] % (Auto) 4.0, Eos % (Auto) 3.3, Baso % (Auto) 0.2, Neut # (Auto) 6.0, Lymph # (Auto) 2.2, [place] # (Auto) 0.4, Eos # (Auto) 0.3, Baso # (Auto) 0.0 05/28/21 15:50: Sodium 141, Potassium 4.4, Chloride 100, Carbon Dioxide 31 H, Anion Gap 14.4, BUN 18 H, Creatinine 1.30 H, Estimated Creat Clear 50, Estimated GFR 40 L, Est GFR ( Amer) 48 L, Glucose 93, Calcium 8.6, Total Bilirubin 0.5, AST 22, ALT 12, Alkaline Phosphatase 105, Troponin I < 0.01, NT-Pro-B Natriuret Pep 1630 H, Total Protein 6.7, Albumin 3.6, Globulin 3.1, Albumin/Globulin Ratio 1.2 Result diagrams: 05/28/21 15:50 05/28/21 15:50 Orders (Tests/Meds): ED MEDICATIONS Discontinued Medications Generic Name Dose Route Start Last Admin Trade Name Freq PRN Reason Stop Dose Admin Albuterol/Ipratropium 3 ml 05/28/21 16:16 Ipratropium/Albuterol 3 Ml Neb IH 05/28/21 16:17 ONCE ONE ORDERS Category Date Time Status Troponin I Q3H Lab 05/28/21 18:15 Ordered Upper Respiratory Panel, PCR Stat Lab 05/28/21 15:06 Received - Radiology Data #1 Image(s): Chest Image Reviewed: Yes I reviewed the patient's radiology results Preliminary Findings: Normal/NAD - ECG Data Tracing #1 I reviewed this ECG and interpreted as documented below: Paced rhythm, 70 bpm, ECG initial impression date: 05/28/21 ECG initial impression time: 16:00 Medical Decision Narrative: 75yo F evaluated for cough and shortness of breath. Patient no acute distress on initial evaluation. She satting 93 to 95% on room air. Patient has faint end expiratory wheezes and transmitted upper airway noise. Routine laboratory studies, chest x-ray, EKG have been ordered. EKG is unremarkable as above. Chest x-ray shows cardiomegaly without sign of heart failure. Patient treated with a DuoNeb. Laboratory studies pending at this time. Laboratory studies reviewed and unremarkable. Patient will be discharged home with prescription for prednisone 40 mg p.o. daily x5 days as well as azithromycin 500 mg p.o. daily x5 days. Patient to follow-up with PCP early next week. General Adult HPI - General Chief complaint: Shortness of Breath/Dyspnea St
[2021-05-28 17:17] VITALS: PULSE 71; PULSE 74
[2021-05-28 17:59] VITALS: BP 136/69; PULSE 69; RESP 18; TEMP 35.3; O2SAT 98
== END 2021-05-28 18:02 | disposition home or self-care (01) ==
PROVIDERS: Emergency Provider Family Medicine; PCP Internal Medicine
DX: J44.1 Chronic obstructive pulmonary disease with (acute) exacerbation (principal); Z20.822 Contact with and (suspected) exposure to COVID-19; I48.0 Paroxysmal atrial fibrillation; Z86.73 Personal history of transient ischemic attack (TIA), and cerebral infarction without residual deficits; M79.7 Fibromyalgia; Z79.899 Other long term (current) drug therapy
CPT/HCPCS: 71045; 80053; 83880; 84484; 85025; 87486; 87581; 87633; 87798; 93005; 99283; U0003

== ENCOUNTER 2021-07-27 12:30 | Emergency (ER) | payer MEDICARE, SELFPAY ==
--- NOTE | 2021-07-27 12:19 | ECG_ITS ---
APPROVED REPORT Exam: Resting ECG HR:70 bpm ECG Measurements Heart Rate 70 AXES LA 114 P QRSd 154 QRS -66 QT 464 T 111 QTc 501 Conclusion Electronic ventricular pacemaker Electronically signed by : Jimy Conley MD 07/27/2021 21:14:50
[2021-07-27 12:31] VITALS: BP 129/68; PULSE 70; RESP 18; TEMP 37.1; O2SAT 88; BMI 36.1
[2021-07-27 12:35] VITALS: O2SAT 97
--- NOTE | 2021-07-27 12:41 | XR_ITS ---
PROCEDURE: XR CHEST PORTABLE CLINICAL HISTORY: cough COMPARISON: CT CT CHEST WO CON from 07/18/2020 CR XR CHEST PORTABLE from 08/16/2020 CR XR CHEST 2V from 09/02/2020 CR XR CHEST PORTABLE from 05/28/2021 FINDINGS: Limited study due to extensive overlying soft tissues limiting penetration to x-ray. Mediastinal silhouette appears relatively stable since prior study. Evaluation of the lung zones is severely limited due to body habitus. Pacing device obscures left chest. Limited views of osseous structures demonstrate no definite osseous lytic or blastic lesions. IMPRESSION: Very limited chest radiograph due to magnitude of overlying soft tissues, appearing overall similar to prior study. Dictated by: Ceci Nguyen MD 07/27/2021 15:16 eCci Nguyen MD in [place] 07/27/2021 15:16
[2021-07-27 13:39] LABS: Basophils % 0.5 % (0.1-2.0); Eosinophils # 0.3 K/mm3 (0.0-0.4); Eosinophils % 5.2 % (0.1-12.0); Hematocrit 33.3 % (37.0-47.0); Hemoglobin 10.4 g/dL (12.2-16.2); Lymphocytes % 30.6 % (10-50); Mean Corpuscular HGB Conc 31.3 g/dL (31.8-35.4); Mean Corpuscular Hemoglobin 31.3 pg (27.0-31.2); Mean Platelet Volume 9.8 fl (7.4-10.4); Monocytes # 0.3 K/mm3 (0.1-1.0); Monocytes % 4.3 % (1.7-9.3); Neutrophils # 3.9 K/mm3 (1.8-7.8); Neutrophils % 59.4 % (37.0-80.0); Platelet Count 181 K/mm3 (142-424); Red Blood Count 3.33 M/mm3 (4.20-5.40); Red Cell Distribution Width 14.6 % (11.5-17.5); White Blood Count 6.6 K/mm3 (4.8-10.8)
[2021-07-27 13:48] LABS: Chloride 101 mmol/L (98-107); Potassium 4.5 mmoL/L (3.5-5.1); Sodium 138 mmol/L (136-145)
[2021-07-27 13:51] LABS: Alanine Aminotransferase 11 U/L (12-78); Albumin Level 3.3 g/dl (3.5-5.0); Albumin/Globulin Ratio 1.3 (1.1-1.8); Alkaline Phosphatase 97 U/L (38-126); Anion Gap 10.5 mEq/L (5-15); Aspartate Amino Transferase 21 U/L (14-36); Bilirubin,Total 0.3 mg/dl (0.2-1.3); Blood Urea Nitrogen 27 mg/dl (7-17); Calcium 8.5 mg/dl (8.4-10.2); Carbon Dioxide 31 mmol/L (22.0-30.0); Creatinine Clearance Estimated 45 mL/min (50-200); Estimated Glomerular Filt Rate 34 ml/min (>60); GFR (African American) 41 ML/MIN (>60); Globulin 2.6 g/dL (1.3-3.2); Glucose 119 mg/dl (74-100); Lipase 34 U/L (23-300); Total Protein,Serum 5.9 g/dl (6.3-8.2)
[2021-07-27 14:01] LABS: NT Pro Brain Natriuretic Pep. 1290 pg/mL (0-125)
[2021-07-27 14:05] LABS: Troponin I < 0.01 ng/ml (0.00-0.034)
--- NOTE | 2021-07-27 15:03 | HMH.EDCP ---
ED Disposition Clinical Impression: Acute exacerbation of chronic obstructive airways disease, Nonspecific chest pain Disposition: Home, Self-Care Condition on Discharge: Good Instructions: DI for Atypical Chest Pain Referrals: Geovany Medel [Primary Care Provider] - - Critical Care Critical Care Time: No Attestation: On 07/27/21, the high probability of a clinically significant, sudden or life threatening deterioration of the following system(s) required my full and direct attention, intervention and personal management. The time I documented below is in addition to time spent performing reported procedures but includes the following listed in this critical care notation. Medical Decision Making - Medical Records Medical records reviewed: Yes: I reviewed the patient's medical records. - Abraham Inquiry Pt receiving controlled substance: No Vital Signs: 07/27/21 12:31 07/27/21 12:35 07/27/21 15:14 Temperature 98.7 F 98.6 F Temperature Source Oral Pulse Rate 69 Pulse Rate [Left Radial] 70 Respiratory Rate 18 18 Blood Pressure 114/61 Blood Pressure [Right Arm] 129/68 Blood Pressure Mean [Right Arm] 88 Blood Pressure Source Automatic Cuff Blood Pressure Source [Right Arm] Automatic Cuff Blood Pressure Position Sitting Blood Pressure Position [Right Arm] Sitting 02 Sat by Pulse Oximetry 88 L 97 Oxygen Delivery Method Room Air Room Air Room Air - Lab Data Lab Results 07/27/21 13:30: WBC 6.6, RBC 3.33 L, Hgb 10.4 L, Hct 33.3 L, MCV 100.0 H, MCH 31.3 H, MCHC 31.3 L, RDW 14.6, Plt Count 181, MPV 9.8, Neut % (Auto) 59.4, Lymph % (Auto) 30.6, [place] % (Auto) 4.3, Eos % (Auto) 5.2, Baso % (Auto) 0.5, Neut # (Auto) 3.9, Lymph # (Auto) 2.0, [place] # (Auto) 0.3, Eos # (Auto) 0.3, Baso # (Auto) 0.0 07/27/21 13:30: Sodium 138, Potassium 4.5, Chloride 101, Carbon Dioxide 31 H, Anion Gap 10.5, BUN 27 H, Creatinine 1.50 H, Estimated Creat Clear 45, Estimated GFR 34 L, Est GFR ( Amer) 41 L, Glucose 119 H, Calcium 8.5, Total Bilirubin 0.3, AST 21, ALT 11 L, Alkaline Phosphatase 97, Troponin I < 0.01, NT-Pro-B Natriuret Pep 1290 H, Total Protein 5.9 L, Albumin 3.3 L, Globulin 2.6, Albumin/Globulin Ratio 1.3, Lipase 34 Result diagrams: 07/27/21 13:30 07/27/21 13:30 Orders (Tests/Meds): ED MEDICATIONS Discontinued Medications Generic Name Dose Route Start Last Admin Trade Name Freq PRN Reason Stop Dose Admin Albuterol/Ipratropium 3 ml 07/27/21 15:09 07/27/21 15:17 Ipratropium/Albuterol 3 Ml Neb IH 07/27/21 15:10 3 ml ONCE ONE Administration Dexamethasone 10 mg 07/27/21 15:16 07/27/21 15:17 Dexamethasone 1mg/1ml Intensol 10ml Udc (Er) PO 07/27/21 15:17 10 mg ONCE ONE Administration Dexamethasone Sodium Phosphate 10 mg 07/27/21 15:09 07/27/21 15:16 Dexamethasone 4mg/Ml 5ml Mdv IV 07/27/21 15:10 Not Given ONCE ONE ORDERS Category Date Time Status Rapid PCR Covid and Flu A/B Stat Lab 07/27/21 12:41 Ordered Troponin I Q3H Lab 07/27/21 15:45 Ordered Troponin I Q3H Lab 07/27/21 18:45 Ordered - Radiology Data #1 Image(s): Chest Image Reviewed: Yes I reviewed the patient's radiology results, Yes I reviewed the patient's radiology image, Yes I have reviewed radiologist's interpretation no change from previous. Cardiomegally - ECG Data Tracing #1 I reviewed this ECG and interpreted as documented below: Normal jugular rate is 70 bpm. Electronic ventricular pacemaker ECG initial impression date: 07/27/21 ECG initial impression time: 12:19 - Reevaluation(s) Time: 15:25 Reevaluation #1: On reevaluation, patient is feeling much better. She had some minimal wheezing which appeared to have improved. There is no significant respiratory distress or hypoxia with ambulation. Patient's cardiac enzyme is normal. Given her subacute nature, ACS unlikely. Patient will need to follow-up with PCP within 48 hours. Strict return precaut
[2021-07-27 15:14] VITALS: BP 114/61; PULSE 69; RESP 18; TEMP 37; O2SAT 100
== END 2021-07-27 15:34 | disposition home or self-care (01) ==
PROVIDERS: Emergency Provider Emergency Medicine; PCP Internal Medicine
DX: J44.1 Chronic obstructive pulmonary disease with (acute) exacerbation (principal); I48.91 Unspecified atrial fibrillation; I50.9 Heart failure, unspecified; M79.7 Fibromyalgia; I10 Essential (primary) hypertension; E78.5 Hyperlipidemia, unspecified; E11.9 Type 2 diabetes mellitus without complications; Z79.899 Other long term (current) drug therapy
CPT/HCPCS: 36415; 71045; 80053; 83690; 83880; 84484; 85025; 93005; 99283

== ENCOUNTER → 2021-09-07 17:24 | Outpatient (CLI) | payer MEDICARE, SELFPAY ==
[2021-09-07 19:09] LABS: Basophils % 0.4 % (0.1-2.0); Eosinophils # 0.2 K/mm3 (0.0-0.4); Eosinophils % 2.9 % (0.1-12.0); Hematocrit 32.9 % (37.0-47.0); Hemoglobin 10.5 g/dL (12.2-16.2); Lymphocytes # 1.8 K/mm3 (0.7-4.5); Lymphocytes % 25.4 % (10-50); Mean Corpuscular Hemoglobin 30.4 pg (27.0-31.2); Mean Corpuscular Volume 95.1 fl (81-99); Mean Platelet Volume 9.7 fl (7.4-10.4); Monocytes # 0.3 K/mm3 (0.1-1.0); Monocytes % 4.4 % (1.7-9.3); Neutrophils # 4.7 K/mm3 (1.8-7.8); Platelet Count 182 K/mm3 (142-424); Red Blood Count 3.46 M/mm3 (4.20-5.40); White Blood Count 7.1 K/mm3 (4.8-10.8)
[2021-09-07 19:38] LABS: Alanine Aminotransferase 9 U/L (12-78); Albumin Level 3.4 g/dl (3.5-5.0); Albumin/Globulin Ratio 1.4 (1.1-1.8); Alkaline Phosphatase 101 U/L (38-126); Anion Gap 9.5 mEq/L (5-15); Aspartate Amino Transferase 18 U/L (14-36); Bilirubin,Total 0.3 mg/dl (0.2-1.3); Blood Urea Nitrogen 24 mg/dl (7-17); Calcium 8.5 mg/dl (8.4-10.2); Carbon Dioxide 31 mmol/L (22.0-30.0); Chloride 103 mmol/L (98-107); Chol/HDL Ratio 2.6 (1-3.5); Cholesterol 110 mg/dl (140-200); Estimated Glomerular Filt Rate 40 ml/min (>60); GFR (African American) 48 ML/MIN (>60); Globulin 2.4 g/dL (1.3-3.2); Glucose 125 mg/dl (74-100); HDL Cholesterol 42 mg/dl (40-60); Potassium 4.5 mmoL/L (3.5-5.1); Sodium 139 mmol/L (136-145); Total Protein,Serum 5.8 g/dl (6.3-8.2); Triglycerides 83 mg/dl (30-150); VLDL Cholesterol 17 mg/dL (0-40)
[2021-09-07 19:49] LABS: Direct LDL Cholesterol 50.12 mg/dL (100-129)
[2021-09-07 21:03] LABS: Erythrocyte Sedimentation Rate 80 mm/hr (0-30)
[2021-09-07 21:43] LABS: Hemoglobin A1C 7.9 % (4.0-6.0)
== END ==
PROVIDERS: Visit Provider Internal Medicine
DX: I11.0 Hypertensive heart disease with heart failure (principal); I50.33 Acute on chronic diastolic (congestive) heart failure; I48.91 Unspecified atrial fibrillation; M05.9 Rheumatoid arthritis with rheumatoid factor, unspecified; E11.40 Type 2 diabetes mellitus with diabetic neuropathy, unspecified; E78.5 Hyperlipidemia, unspecified; Z51.81 Encounter for therapeutic drug level monitoring; Z79.01 Long term (current) use of anticoagulants; Z79.4 Long term (current) use of insulin
CPT/HCPCS: 80053; 80061; 83036; 85025; 85651

== ENCOUNTER → 2021-09-09 14:16 | Outpatient (CLI) | payer MEDICARE, SELFPAY | PROVIDERS: Visit Provider Surgery | DX: Z01.812 Encounter for preprocedural laboratory examination (principal); Z11.52 Encounter for screening for COVID-19; M31.6 Other giant cell arteritis | CPT/HCPCS: C9803; U0003; U0005 ==

== ENCOUNTER 2021-09-11 08:55 | Day surgery (SDC) | payer MEDICARE, SELFPAY ==
[2021-09-10 11:19] VITALS: BMI 29.9
[2021-09-11 09:45] VITALS: BP 126/91; PULSE 69; RESP 18; TEMP 36.8; O2SAT 96
--- NOTE | 2021-09-11 12:52 | P.PN_ITS ---
[facility] Anesthesia Checklist - Patient Identification Patient Identification: Arm Band - Structural Data Admitted From: Home Planned Operative Procedure/s: Left Temporal Artery Biopsy Consent for Planned Operative Procedure(s) Verified: Yes Verified Documents: Surgical Consent, History and Physical - NPO Status Verified Time NPO: 00:00 - Additional verifications Anesthesia Reactions: No Hx Blood Transfusions: Yes Blood Transfusion Reaction: No - Airway Assessment C-Spine Mobility Assessed: Yes (mp2) TMJ Mobility Assessed: Yes Dentition: Good Dentition - Neurological Assessment Level of Consciousness: Awake, Alert - Anesthesia Plan Anesthesia Risk discussed: Yes Anesthesia Plan: Verified ASA Class: III Anesthesia Type: MAC [facility] History I have reviewed the patient's past medical history: Yes Medical History: Reports:: Aneurysm, Arrhythmia, Asthma, Atrial Fibrillation, Congestive Heart Failure, Chronic Obstructive Pulmonary Disease (COPD), Congenital Heart Disease, Cerebrovascular Accident, Diabetes Mellitus Type 2, Hyperlipidemia, Hypertension, Internal Pacemaker, Lung Disease, Migraine, Renal Disease, Seizures (reaction to medication), Transient Ischemic Attacks (TIA), Tuberculosis Denies:: Cancer, Diabetes Mellitus Type 1, MRSA *Have you ever received a pneumonia vaccine?: Yes *Have you received a flu vaccine this season?: Yes Other Medical History: Reports: Arthritis, Cataracts, Fibromyalgia, Other. Denies: Blood Transfusion Reaction Anesthesia experience/problems:: nac Laterality Cases: Right: Arthroscopy Shoulder, Bilateral: Carpal Tunnel Release, Tonsillectomy Other Surgeries: Yes: Cancer Surgery, Cardiac Catheterization, Colonoscopy, Colon Resection, Hysterectomy-Total, Pacemaker, Other Amputation: No Fractures: No - *Social History Last grade of school completed: High school graduate Smoking Status: Never smoker Alcohol Intake: never Alcohol Intake Frequency:: other Substance Use Type: denies use *Occupational Status:: disabled Housing: other Household Members: other, spouse *Travel in the last 8 weeks: None Family Hx:: No significant family history
[2021-09-11 13:03] VITALS: TEMP 43
--- NOTE | 2021-09-11 13:26 | HMH.OPNOTE ---
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 General anesthesia with laryngeal mask airway was achieved. Her left temporal region was prepped and draped in a sterile fashion. After infiltration with local anesthetic an incision was made anterior to the tragus. The deep subcutaneous tissue was dissected with a combination of sharp dissection, blunt dissection, and electrocautery. Soft tissue thickening was noted as the neurovascular bundle was encountered. The decision was made to proceed with excision of the entire bundle as opposed to attempts to free the artery alone. The neurovascular bundle was elevated and carefully transected free from surrounding tissue with a combination of sharp and blunt dissection. Silk suture ligation along the proximal and distal margin was completed prior to transection and the intervening tissue. The specimen was passed off for pathologic evaluation. The wound was carefully irrigated and skin was reapproximated with running 6-0 nylon. Dressings were applied and the patient was transferred to recovery in stable condition after removal of her laryngeal mask airway. Condition: stable Disposition: PACU Specimens:: Left temporal artery biopsy Complications:: No immediate
[2021-09-11 13:30] VITALS: BP 104/56; PULSE 71; RESP 16; TEMP 36.2; O2SAT 95
[2021-09-11 13:45] VITALS: BP 109/65; PULSE 64; RESP 18; O2SAT 96
[2021-09-11 14:00] VITALS: BP 123/61; PULSE 66; RESP 16; O2SAT 96
[2021-09-11 14:15] VITALS: BP 123/71; PULSE 59; RESP 16; O2SAT 98
[2022-07-01 10:55] LABS: POC Glucose,Bedside 135 (70-110)
== END 2021-09-11 14:20 | disposition home or self-care (01) ==
LOC: OR 08:56
PROVIDERS: PCP Internal Medicine; Visit Provider Surgery
DX: I70.8 Atherosclerosis of other arteries (principal); J45.909 Unspecified asthma, uncomplicated; I48.91 Unspecified atrial fibrillation; I50.9 Heart failure, unspecified; E11.9 Type 2 diabetes mellitus without complications; E78.5 Hyperlipidemia, unspecified; I10 Essential (primary) hypertension; Z95.0 Presence of cardiac pacemaker; Z88.6 Allergy status to analgesic agent; Z91.041 Radiographic dye allergy status; Z88.8 Allergy status to other drugs, medicaments and biological substances; Z91.018 Allergy to other foods; Z91.09 Other allergy status, other than to drugs and biological substances
CPT/HCPCS: 37609; 82962; 88305; 96374; J2704

== ENCOUNTER → 2021-09-22 16:09 | Outpatient (CLI) | payer MEDICARE, SELFPAY ==
--- NOTE | 2021-09-22 16:14 | XR_ITS ---
PROCEDURE: XR TIBIA FIBULA RT 2V CLINICAL INDICATION: RT LOWER LEG PAIN, FALL COMPARISON: No exams were available for comparison FINDINGS: Osteoarthritic change at the knee joint. Mild bony hypertrophy at the distal aspect of the medial and lateral malleolus. No acute fracture or dislocation. Vascular calcification. IMPRESSION: No acute findings. Dictated by: Ravinder Smith MD 09/22/2021 16:58 Ravinder Smith MD in [place] 09/22/2021 16:58
--- NOTE | 2021-09-22 16:14 | XR_ITS ---
PROCEDURE: XR LUMBAR SPINE MIN 4V CLINICAL INDICATION: FALL COMPARISON: CR XR LUMBAR SPINE MIN 4V from 09/24/2020 FINDINGS: Mild lumbar scoliosis convex left. Prior posterior fusion at L2-L3. Inter pedicular screws are in place. There is degenerative disc disease at L2-L3 with anterior osteophytes. Disc spacer devices are present at L2-L3 L3-L4 and L4-5. Has been prior posterior laminectomy at L2, L3, L4, and 5. Clips are present in the right upper quadrant, left mid abdominal region and left lower abdomen. No acute fracture or dislocation. No lytic or blastic change. Mild osteoarthritic change of the hips. Vascular calcifications. Other findings:None. IMPRESSION: Postsurgical and degenerative changes, no acute finding. Dictated by: Ravinder Smith MD 09/22/2021 16:57 Ravinder Smith MD in [place] 09/22/2021 16:57
--- NOTE | 2021-09-22 16:14 | XR_ITS ---
PROCEDURE: XR CHEST 2V CLINICAL HISTORY: RT POSTERIOR CHEST PAIN, POST FALL COMPARISON: CT CT CHEST WO CON from 07/18/2020 CR XR CHEST 2V from 09/02/2020 CR XR CHEST PORTABLE from 05/28/2021 CR XR CHEST PORTABLE from 07/27/2021 FINDINGS: Cardiomegaly. Bipolar pacemaker is present. No evidence of CHF. No lobar consolidation or collapse. No acute bony anomalies. IMPRESSION: No acute findings. Dictated by: Ravinder Smith MD 09/22/2021 17:00 Ravinder Smith MD in [place] 09/22/2021 17:00
--- NOTE | 2021-09-22 16:14 | XR_ITS ---
PROCEDURE: XR KNEE RT 3V CLINICAL INDICATION: RT KNEE PAIN, FALL COMPARISON: CR KNEE3L KNEE-3 VIEWS-LT from 05/12/2015 CR KNEE3L KNEE-3 VIEWS-LT from 09/10/2017 CR Knee L from 04/05/2019 CR XR KNEE LT 3V from 05/25/2019 FINDINGS: Mild tricompartmental osteoarthritic change. No acute fracture or dislocation. Generalized vascular calcification. IMPRESSION: No acute findings. Dictated by: Ravinder Smith MD 09/22/2021 16:59 Ravinder Smith MD in [place] 09/22/2021 16:59
== END ==
LOC: RAD 16:10
PROVIDERS: PCP Internal Medicine; Visit Provider Internal Medicine
DX: R07.89 Other chest pain (principal); M79.604 Pain in right leg; M25.561 Pain in right knee; W19.XXXA Unspecified fall, initial encounter
CPT/HCPCS: 71046; 72110; 73562; 73590

== ENCOUNTER 2021-09-23 13:52 | Emergency (ER) | payer MEDICARE, SELFPAY ==
[2021-09-23 13:52] VITALS: BP 141/72; PULSE 71; RESP 16; TEMP 36.8; O2SAT 98; BMI 29.9
--- NOTE | 2021-09-23 14:16 | CT_ITS ---
PROCEDURE: CT HEAD/BRAIN WO CON CLINICAL INDICATION: AMS Without well COMPARISON: CT CT HEAD/BRAIN WO CON from 07/30/2019 TECHNIQUE: Axial images obtained. All CT scans at the facility use one or more dose reduction, viz: automated exposure control, ma/kV adjustment per patient size (including targeted exams where dose is matched to indication, i.e. head), or iterative reconstruction technique. FINDINGS: No midline shift, mass effect, intracranial hemorrhage, hydrocephalus, or extra-axial fluid collection is evident. In the anterior falx area on the right there is a 6 by 4 mm area of slight increased density is some calcification along its superior margin and may be due to small meningioma. This is without mass effect. The calvarium has an unremarkable appearance. No mastoid effusion. No sinus air-fluid level. IMPRESSION: No acute intracranial findings. Small hyperdense nodule along the right aspect of the falx anteriorly suggesting a small meningioma Dictated by: Ravinder Smith MD 09/23/2021 14:56 Ravinder Smith MD in [facility] 09/23/2021 14:56
[2021-09-23 14:24] VITALS: BMI 29.9
[2021-09-23 14:36] LABS: Microscopic, Urine URINE MICROSCOPIC (MICROSCOPIC)
[2021-09-23 14:44] LABS: Appearance,Urine CLEAR (Clear); Bilirubin,Urine Negative (Negative); Blood, Urine TRACE-I (Negative); Color,Urine YELLOW (Yellow); Glucose,Urine (UA) Negative (Negative); Ketones,Urine Negative (Negative); Leukocyte Esterase,Urine TRACE (Negative); Nitrate,Urine Negative (Negative); Protein,Urine Negative (Negative); Urobilinogen,Urine 0.2 EU/dl (0.2)
[2021-09-23 15:08] LABS: Basophils # 0.1 K/mm3 (0-0.2); Basophils % 1.1 % (0.1-2.0); Eosinophils # 0.3 K/mm3 (0.0-0.4); Eosinophils % 3.5 % (0.1-12.0); Hematocrit 33.9 % (37.0-47.0); Hemoglobin 10.3 g/dL (12.2-16.2); Lymphocytes # 2.8 K/mm3 (0.7-4.5); Lymphocytes % 31.6 % (10-50); Mean Corpuscular HGB Conc 30.3 g/dL (31.8-35.4); Mean Corpuscular Hemoglobin 29.9 pg (27.0-31.2); Mean Corpuscular Volume 98.6 fl (81-99); Mean Platelet Volume 9.2 fl (7.4-10.4); Monocytes # 0.4 K/mm3 (0.1-1.0); Monocytes % 4.1 % (1.7-9.3); Neutrophils # 5.2 K/mm3 (1.8-7.8); Neutrophils % 59.8 % (37.0-80.0); Platelet Count 170 K/mm3 (142-424); Red Blood Count 3.44 M/mm3 (4.20-5.40); Red Cell Distribution Width 15.6 % (11.5-17.5); White Blood Count 8.7 K/mm3 (4.8-10.8)
[2021-09-23 15:17] LABS: Alanine Aminotransferase 14 U/L (12-78); Albumin Level 3.7 g/dl (3.5-5.0); Albumin/Globulin Ratio 1.4 (1.1-1.8); Alkaline Phosphatase 93 U/L (38-126); Anion Gap 8.1 mEq/L (5-15); Aspartate Amino Transferase 19 U/L (14-36); Bilirubin,Total 0.4 mg/dl (0.2-1.3); Blood Urea Nitrogen 24 mg/dl (7-17); Calcium 8.6 mg/dl (8.4-10.2); Carbon Dioxide 36 mmol/L (22.0-30.0); Chloride 96 mmol/L (98-107); Creatinine Clearance Estimated 45 mL/min (50-200); Estimated Glomerular Filt Rate 37 ml/min (>60); GFR (African American) 44 ML/MIN (>60); Globulin 2.7 g/dL (1.3-3.2); Glucose 175 mg/dl (74-100); Phosphorous 4.1 mg/dl (2.5-4.5); Potassium 4.1 mmoL/L (3.5-5.1); Sodium 136 mmol/L (136-145); Total Protein,Serum 6.4 g/dl (6.3-8.2)
[2021-09-23 15:18] LABS: Lactic Acid 1.6 mmol/L (0.7-2.1)
[2021-09-23 15:26] LABS: Bacteria,Urine Trace /lpf; RBC,Urine Occasional #/hpf (0-3)
[2021-09-23 15:30] VITALS: BP 144/78; PULSE 71; RESP 16; O2SAT 95
--- NOTE | 2021-09-23 15:46 | HMH.EDGENADL ---
ED Disposition Clinical Impression: Polypharmacy Disposition: Home, Self-Care Condition on Discharge: Fair Referrals: Geovany Medel [Primary Care Provider] - - Critical Care Critical Care Time: No Attestation: On 09/23/21, the high probability of a clinically significant, sudden or life threatening deterioration of the following system(s) required my full and direct attention, intervention and personal management. The time I documented below is in addition to time spent performing reported procedures but includes the following listed in this critical care notation. Medical Decision Making - Medical Records Medical records reviewed: Yes: I reviewed the patient's medical records. - Abraham Inquiry Pt receiving controlled substance: No Abraham was queried for this patient: No Vital Signs: 09/23/21 15:30 09/23/21 16:03 Pulse Rate 71 63 Respiratory Rate 16 17 Blood Pressure 144/78 H 154/72 H Blood Pressure Mean 100 100 02 Sat by Pulse Oximetry 95 95 - Lab Data Lab results reviewed: Yes: I reviewed the patient's lab results. Lab Results 09/23/21 14:32: Urine Color Yellow, Urine Appearance Clear, Urine pH 7.0, Ur Specific [place] 1.010, Urine Protein Negative, Urine Glucose (UA) Negative, Urine Ketones Negative, Urine Blood Trace-i, Urine Nitrate Negative, Urine Bilirubin Negative, Urine Urobilinogen 0.2, Ur Leukocyte Esterase Trace, Urine RBC Occasional, Urine WBC 3-5, Ur Squamous Epith Cells 3-5, Urine Bacteria Trace 09/23/21 14:59: WBC 8.7, RBC 3.44 L, Hgb 10.3 L, Hct 33.9 L, MCV 98.6, MCH 29.9, MCHC 30.3 L, RDW 15.6, Plt Count 170, MPV 9.2, Neut % (Auto) 59.8, Lymph % (Auto) 31.6, [place] % (Auto) 4.1, Eos % (Auto) 3.5, Baso % (Auto) 1.1, Neut # (Auto) 5.2, Lymph # (Auto) 2.8, [place] # (Auto) 0.4, Eos # (Auto) 0.3, Baso # (Auto) 0.1 09/23/21 14:59: Sodium 136, Potassium 4.1, Chloride 96 L, Carbon Dioxide 36 H, Anion Gap 8.1, BUN 24 H, Creatinine 1.40 H, Estimated Creat Clear 45, Estimated GFR 37 L, Est GFR ( Amer) 44 L, Glucose 175 H, Calcium 8.6, Phosphorus 4.1, Magnesium 2.0, Total Bilirubin 0.4, AST 19, ALT 14, Alkaline Phosphatase 93, Total Protein 6.4, Albumin 3.7, Globulin 2.7, Albumin/Globulin Ratio 1.4, TSH 3.87 09/23/21 14:59: Lactate 1.6 Result diagrams: 09/23/21 14:59 09/23/21 14:59 Medical Decision Narrative: Patient is 76-year-old female extensive past medical history presenting to the ED for altered mental status. Patient is somulent, alert, GCS of 14. Physical exam is unremarkable, patient has no focal neurological deficits. Differential includes but is not limited to polypharmacy patient is on 62 mg of fentanyl patch and multiple other central nervous system depressants, any abnormalities including intrarenal hemorrhage, electrolyte abnormalities. Given this a CT head, CBC, CMP, TSH was performed. Patient's lab work is unremarkable, CT head without any intracranial bleed. Laboratory finding and imaging findings are discussed with agrees that there is an aspect of polypharmacy playing a role. states that they will meet with her primary care physician to figure out her medications better along with further imaging. Patient stable for discharge. Patient is given strict return precautions and follow-up instructions. General Adult HPI - General Stated complaint: weakn Time Seen by Provider: 09/23/21 14:46 Mode of Arrival: EMS Source of Information: Patient Limitations: No Limitations - History of Present Illness HPI narrative: Patient is a 76-year-old female with extensive medical story and multiple medications presenting to the ED for altered mental status. Per family, patient is more sleepier than usual and was hard to wake up this morning. The patient has her eyes closed, appears sleepy but is able to answer all questions appropriately. Patient eats that she feels well, has been feeling sleepy however denies any headache, numbness, weakness. [place] any chest pain, sh
[2021-09-23 15:48] LABS: Thyroid Stimulating Hormone 3.87 uIU/mL (0.465-4.68)
[2021-09-23 16:03] VITALS: BP 154/72; PULSE 63; RESP 17; O2SAT 95
[2021-09-23 16:31] VITALS: BP 151/79; PULSE 68; RESP 18; O2SAT 96
[2021-09-23 16:50] VITALS: BP 151/79; PULSE 68; RESP 18; TEMP 36.8; O2SAT 96
== END 2021-09-23 16:50 | disposition home or self-care (01) ==
PROVIDERS: Emergency Provider Emergency Medicine; PCP Internal Medicine
DX: R53.83 Other fatigue (principal); I48.91 Unspecified atrial fibrillation; J44.9 Chronic obstructive pulmonary disease, unspecified; E78.5 Hyperlipidemia, unspecified; I10 Essential (primary) hypertension; E11.9 Type 2 diabetes mellitus without complications; M79.7 Fibromyalgia; Z86.73 Personal history of transient ischemic attack (TIA), and cerebral infarction without residual deficits
CPT/HCPCS: 70450; 80053; 81001; 83605; 83735; 84100; 84443; 85025; 99283

== ENCOUNTER 2021-10-03 17:38 | Emergency (ER) | payer MEDICARE, SELFPAY ==
--- NOTE | 2021-10-03 17:56 | XR_ITS ---
PROCEDURE INFORMATION: Exam: XR Chest Exam date and time: 10/03/2021 5:56 PM Age: 76 years old Clinical indication: Cough TECHNIQUE: Imaging protocol: XR of the chest. Views: 1 view. Total images: 1 COMPARISON: CR XR CHEST 2V 09/22/2021 4:17 PM FINDINGS: Lungs: Low lung volumes. Mild central vascular congestion. Mild perihilar interstitial prominence and peribronchial thickening which may relate to bronchitis, mild perihilar edema, or interstitial pneumonitis. No consolidations. Pleural spaces: No pleural effusion. No pneumothorax. Heart/Mediastinum: Moderate cardiomegaly. Cardiac pacemaker without gross hardware complication or change. No tracheal/mediastinal shift. Vasculature: Moderate aortic ectasia/tortuosity. Bones/joints: No acute osseous abnormalities are identified. Osteopenia. Moderate thoracic spondylosis. IMPRESSION: 1. Cardiomegaly and vascular congestion suggesting chronic CHF, without evidence of acute decompensation. Cardiac pacemaker without gross hardware complication or change. 2. Bilateral perihilar interstitial prominence and peribronchial thickening suggesting bronchitis, interstitial edema, or interstitial pneumonitis. No consolidations.
--- NOTE | 2021-10-03 18:00 | HMH.EDGENADL ---
ED Disposition Clinical Impression: Cough, Viral upper respiratory infection Disposition: Home, Self-Care Condition on Discharge: Good Additional Instructions: You have been evaluated for cough and chest congestion. Please continue to monitor your symptoms at home. Tylenol Motrin for pain. Follow-up with your primary care doctor. Return to the emergency department for any new or worsening symptoms. Referrals: Geovany Medel [Primary Care Provider] - Time of Disposition: 18:59 - Critical Care Critical Care Time: No Attestation: On 10/03/21, the high probability of a clinically significant, sudden or life threatening deterioration of the following system(s) required my full and direct attention, intervention and personal management. The time I documented below is in addition to time spent performing reported procedures but includes the following listed in this critical care notation. Medical Decision Making - Medical Records Medical records reviewed: Yes: I reviewed the patient's medical records. - Abraham Inquiry Pt receiving controlled substance: No - Lab Data Lab Results 10/03/21 18:00: SARS-CoV-2 (PCR) Not detected, Influenza A Untype (PCR) Not detected, Influenza Type B (PCR) Not detected Orders (Tests/Meds): ED MEDICATIONS Generic Name Dose Route Start Last Admin Trade Name Freq PRN Reason Stop Dose Admin Benzonatate 100 mg 10/03/21 18:15 Benzonatate 100mg Capsule PO 11/02/21 18:14 ONCE DENISE Medical Decision Narrative: 76-year-old female with history of COPD and CHF presenting to the emergency department with cough, chest congestion, Covid exposure. Patient clinically stable on arrival. Oxygen saturation is 94% on room air. Differential indices include viral upper respiratory infection, bronchitis, pneumonia, COVID-19. Will obtain rapid Covid testing and chest x-ray. Patient given Tessalon for cough Chest x-ray shows no focal opacity or multifocal pneumonia. No effusions. Covid testing negative. On reassessment, patient says she is feeling much better. Oxygen saturation is 97% on room air. No tachycardia or elevated respiratory rate. She continues to have occasional cough. Offered her a prescription for cough medication. She says she takes too many medications already. Counseled her to continue monitoring her symptoms. Tylenol or Motrin for pain and fever. Follow-up with PCP in 1 to 2 days for symptom recheck. Given return precautions. Stable for discharge. General Adult HPI - General Stated complaint: covid test, with symptoms Time Seen by Provider: 10/03/21 18:00 Mode of Arrival: Wheelchair Source of Information: Patient Limitations: No Limitations - History of Present Illness HPI narrative: 76-year-old female presenting to the emergency department with cough. Symptoms started 3 to 4 days ago. Has gotten much worse. She is coughing frequently. Feels like her throat is dry. Her cough is nonproductive. No particular shortness of breath. No loss of taste or smell. She is able to eat and drink without nausea or vomiting. Has some generalized weakness. No fevers or chills. No medications prior to arrival. She was exposed to COVID-19 1 week ago. Her daughter and daughter's tested positive. She is vaccinated. Has COPD and a cardiac pacemaker. - Related Data Home Medications Medication Instructions Recorded Confirmed Atorvastatin Calcium [Lipitor 40mg 40 mg PO HS 01/06/18 09/16/21 Tab] Bisoprolol Fumarate [Zebeta] 10 mg PO DAILY 01/06/18 09/16/21 Melatonin 10 mg PO HS 01/06/18 09/16/21 Pantoprazole Sodium [Protonix 40mg 40 mg PO DAILY 01/06/18 09/16/21 (granule) packet] fentanyl 50 mcg/hr transdermal 1 patch TRANSDERMA Q72H 02/07/18 09/16/21 patch apixaban 5 mg tablet 5 mg PO BID tab 07/23/19 09/16/21 insulin aspart U-100 100 unit/mL 18 unit SQ QID ml 11/29/19 09/16/21 subcutaneous solution oxycodone 10 mg tablet 10 m
[2021-10-03 18:07] LABS: Coronavirus 19, PCR Not Detected (NotDetected); Influenza A, PCR Not Detected (NotDetected); Influenza B, PCR Not Detected (NotDetected)
[2021-10-03 18:13] VITALS: BMI 29.9
[2021-10-03 18:39] VITALS: BP 129/78; PULSE 72; RESP 20; TEMP 37.9; O2SAT 98; BMI 29.9
--- NOTE | 2021-10-03 18:59 | PC.NURSE ---
SPOKE WITH PT'S DAUGHTER AND UPDATED ON PLAN OF CARE
[2021-10-03 19:06] VITALS: BP 128/70; BP 137/78; PULSE 67; PULSE 87; RESP 16; RESP 26; TEMP 37.3; TEMP 37.9; O2SAT 94; O2SAT 97
== END 2021-10-03 19:08 | disposition home or self-care (01) ==
LOC: UTC 17:46 → ER 17:54
PROVIDERS: Emergency Provider Emergency Medicine; PCP Internal Medicine
DX: J06.9 Acute upper respiratory infection, unspecified (principal); Z20.822 Contact with and (suspected) exposure to COVID-19; J44.9 Chronic obstructive pulmonary disease, unspecified; I48.91 Unspecified atrial fibrillation; E11.9 Type 2 diabetes mellitus without complications; E78.5 Hyperlipidemia, unspecified; I10 Essential (primary) hypertension; Z79.899 Other long term (current) drug therapy
CPT/HCPCS: 71045; 99282; C9803; U0003; U0005

== ENCOUNTER → 2021-11-11 12:14 | Outpatient (CLI) | payer MEDICARE, SELFPAY | PROVIDERS: Visit Provider Internal Medicine | DX: N39.0 Urinary tract infection, site not specified (principal) | CPT/HCPCS: 87086 ==

== ENCOUNTER → 2021-12-04 09:17 | Outpatient (CLI) | payer MEDICARE, SELFPAY ==
--- NOTE | 2021-12-04 09:21 | CT_ITS ---
FINAL REPORT CLINICAL HISTORY: EPIGASTRIC PAIN, NAUSEA FINDINGS: Axial CT images of the abdomen and pelvis were obtained without intravenous contrast. Oral contrast was administered. Coronal reformatted images were also obtained.This study was performed with techniques to keep radiation doses as low as reasonably achievable (ALARA). Individualized dose reduction techniques using automated exposure control or adjustment of mA and/or kV according to the patient's size were employed. Abdomen: There is mild scarring in the lung bases. There is cardiomegaly. There are several less than 3 mm nonobstructing renal stones. The gallbladder is surgically absent. The liver, spleen and pancreas have an unremarkable, unenhanced appearance. No mass or adenopathy is seen. No inflammatory process is identified. There are degenerative and postoperative changes in the spine. Pelvis: The appendix is not visualized, no localized inflammatory change is seen in this region. There is no evidence of ureteral dilation or ureteral stone.No mass or abnormal fluid collection is identified. There are postoperative changes in the sigmoid colon. There are postoperative changes from hysterectomy. IMPRESSION: Several less than 3 mm nonobstructing renal stones. No mass or inflammatory process. Reviewed, Interpreted and Dictated by Samuel Schneider III, MD Transcribed by Sandy Scott Authenticated by Samuel Schneider III, MD on 12/04/2021 11:26:08 AM [facility]
== END ==
LOC: RAD 09:17
PROVIDERS: PCP Internal Medicine; Visit Provider Internal Medicine
DX: R10.13 Epigastric pain (principal); R11.0 Nausea
CPT/HCPCS: 74176

== ENCOUNTER → 2022-02-16 20:29 | Outpatient (CLI) | payer MEDICARE, SELFPAY | LOC: SL 20:32 | PROVIDERS: PCP Internal Medicine; Visit Provider Specialist | DX: G47.33 Obstructive sleep apnea (adult) (pediatric) (principal); G47.36 Sleep related hypoventilation in conditions classified elsewhere; R06.83 Snoring | CPT/HCPCS: 95811 ==

== ENCOUNTER → 2022-03-18 16:56 | Outpatient (CLI) | payer MEDICARE, SELFPAY ==
[2022-03-18 19:51] LABS: Adenovirus F 40/41, stool Not Detected (NotDetected); Astrovirus Not Detected (NotDetected); Campylobacter Not Detected (NotDetected); Clostridium Difficile A/B, PCR Not Detected (NotDetected); Cryptosporidium Not Detected (NotDetected); Cyclospora Cayetanesis Not Detected (NotDetected); Entamoeba histolytica Not Detected (NotDetected); Enteroaggregative E coli Not Detected (NotDetected); Enterotoxigenic E coli Not Detected (NotDetected); Giardia lamblia Not Detected (NotDetected); Norovirus Not Detected (NotDetected); Plesimonas Shigalloides, PCR Not Detected (NotDetected); Rotavirus A Not Detected (NotDetected); Salmonella, PCR Not Detected (NotDetected); Sapovirus Not Detected (NotDetected); Shiga-like toxin E coli Not Detected (NotDetected); Shigella Enterovasive E coli Not Detected (NotDetected); Vibrio Cholerae Not Detected (NotDetected); Vibrio, PCR Not Detected (NotDetected); Yersinia Entercolitica, PCR Not Detected (NotDetected)
[2022-03-18 21:41] LABS: Occult Blood,Stool Negative (Negative)
[2022-03-19 09:16] LABS: Enteropathogenic E coli Detected (NotDetected)
== END ==
PROVIDERS: PCP Internal Medicine; Visit Provider Internal Medicine
DX: R19.7 Diarrhea, unspecified (principal); A04.0 Enteropathogenic Escherichia coli infection
CPT/HCPCS: 82272; 87205; 87507; G0328

== ENCOUNTER 2022-04-08 19:03 | Emergency (ER) | payer MEDICARE, SELFPAY ==
[2022-04-08 19:05] VITALS: BMI 26.5
--- NOTE | 2022-04-08 19:06 | CT_ITS ---
PROCEDURE INFORMATION: Exam: CT Head Without Contrast Exam date and time: 04/08/2022 7:13 PM Age: 76 years old Clinical indication: Stroke-like symptoms; Generalized weakness; Additional info: Stroke protocol. Weakness left TECHNIQUE: Imaging protocol: Computed tomography of the head without contrast. Radiation optimization: All CT scans at this facility use at least one of these dose optimization techniques: automated exposure control; mA and/or kV adjustment per patient size (includes targeted exams where dose is matched to clinical indication); or iterative reconstruction. Other technique: STROKE PROTOCOL was implemented. COMPARISON: CT HEAD/BRAIN WO CON 09/23/2021 2:35 PM FINDINGS: Brain: Intracranial vascular calcification. Mild decreased attenuation of the supratentorial white matter is likely secondary to chronic microvascular ischemia. No acute intracranial hemorrhage. Cerebral ventricles: Ventricular and subarachnoid spaces are age appropriate. Paranasal sinuses: Visualized sinuses are unremarkable. No fluid levels. Mastoid air cells: Visualized mastoid air cells are well aerated. Bones/joints: Unremarkable. No acute fracture. Soft tissues: Unremarkable. IMPRESSION: No acute intracranial abnormality. ASSESSMENT: ASPECTS ([place] Stroke Program Early CT Score) is 10.
[2022-04-08 19:10] VITALS: BP 139/91; PULSE 70; RESP 19; TEMP 37.3; O2SAT 97; BMI 30.9
--- NOTE | 2022-04-08 19:13 | ECG_ITS ---
APPROVED REPORT Exam: Resting ECG HR:112 bpm ECG Measurements Heart Rate 112 AXES OK 162 P 55 QRSd 9 QRS 32 QT 234 T 110 QTc 300 Conclusion Electronic ventricular pacemaker UNCONFIRMED REPORT Electronically signed by : Jimy Conley MD 04/12/2022 14:11:36
[2022-04-08 19:58] LABS: Basophils % 0.6 % (0.1-2.0); Eosinophils # 0.3 K/mm3 (0.0-0.4); Eosinophils % 4.5 % (0.1-12.0); Hemoglobin 10.2 g/dL (12.2-16.2); Lymphocytes # 1.8 K/mm3 (0.7-4.5); Lymphocytes % 24.7 % (10-50); Mean Corpuscular HGB Conc 30.8 g/dL (31.8-35.4); Mean Corpuscular Hemoglobin 29.8 pg (27.0-31.2); Mean Platelet Volume 9.4 fl (7.4-10.4); Monocytes # 0.3 K/mm3 (0.1-1.0); Monocytes % 4.7 % (1.7-9.3); Neutrophils # 4.7 K/mm3 (1.8-7.8); Neutrophils % 65.6 % (37.0-80.0); Platelet Count 162 K/mm3 (142-424); Red Blood Count 3.41 M/mm3 (4.20-5.40); Red Cell Distribution Width 16.8 % (11.5-17.5); White Blood Count 7.1 K/mm3 (4.8-10.8)
[2022-04-08 20:15] LABS: Alanine Aminotransferase 14 U/L (12-78); Albumin Level 3.7 g/dl (3.5-5.0); Albumin/Globulin Ratio 1.4 (1.1-1.8); Alkaline Phosphatase 111 U/L (38-126); Anion Gap 9.5 mEq/L (5-15); Aspartate Amino Transferase 23 U/L (14-36); Bilirubin,Total < 0.1 mg/dl (0.2-1.3); Blood Urea Nitrogen 25 mg/dl (7-17); Calcium 8.4 mg/dl (8.4-10.2); Carbon Dioxide 34 mmol/L (22.0-30.0); Chloride 99 mmol/L (98-107); Creatinine Clearance Estimated 42 mL/min (50-200); Estimated Glomerular Filt Rate 34 ml/min (>60); GFR (African American) 41 ML/MIN (>60); Globulin 2.6 g/dL (1.3-3.2); Glucose 127 mg/dl (74-100); Potassium 4.5 mmoL/L (3.5-5.1); Sodium 138 mmol/L (136-145); Total Protein,Serum 6.3 g/dl (6.3-8.2)
[2022-04-08 20:34] LABS: Procalcitonin 0.055 ng/mL (0.0-2.0)
[2022-04-08 20:59] LABS: Erythrocyte Sedimentation Rate 108 mm/hr (0-30)
[2022-04-08 21:54] LABS: Microscopic, Urine URINE MICROSCOPIC (MICROSCOPIC)
[2022-04-08 22:16] LABS: Appearance,Urine CLEAR (Clear); Bilirubin,Urine Negative (Negative); Blood, Urine 2+ (Negative); Color,Urine YELLOW (Yellow); Glucose,Urine (UA) Negative (Negative); Ketones,Urine Negative (Negative); Leukocyte Esterase,Urine 1+ (Negative); Nitrate,Urine Negative (Negative); Protein,Urine Negative (Negative); Specific Gravity, Urine 1.025 (1.005-1.030); Urobilinogen,Urine 0.2 EU/dl (0.2)
[2022-04-08 22:19] LABS: Bacteria,Urine 1+ /lpf; WBC,Urine 20-50 #/hpf (0-3)
[2022-04-09 01:11] VITALS: BP 134/78; PULSE 64; RESP 18; TEMP 37.1; O2SAT 97
--- NOTE | 2022-04-09 01:11 | HMH.EDHA ---
ED Disposition Clinical Impression: Temporal arteritis UTI (urinary tract infection) Qualifiers: Urinary tract infection type: site unspecified Hematuria presence: without hematuria Qualified Code(s): N39.0 - Urinary tract infection, site not specified Disposition: Home, Self-Care Condition on Discharge: Good Instructions: Giant Cell Arteritis Additional Instructions: fluids and use meds and call pcp for urine culture results and f/u Prescriptions: levoFLOXacin [Levaquin 500mg tab] 500 mg PO DAILY #7 tab Transmission Status: Pending to [facility] predniSONE [Prednisone 20mg Tab] 20 mg PO BID #10 tab Transmission Status: Pending to [facility] Referrals: Geovany Medel MD [Primary Care Provider] - - Critical Care Critical Care Time: No Attestation: On 04/08/22, the high probability of a clinically significant, sudden or life threatening deterioration of the following system(s) required my full and direct attention, intervention and personal management. The time I documented below is in addition to time spent performing reported procedures but includes the following listed in this critical care notation. Medical Decision Making - Medical Records Medical records reviewed: Yes: I reviewed the patient's medical records. - Abraham Inquiry Pt receiving controlled substance: No Vital Signs: 04/08/22 19:10 Temperature 99.2 F Temperature Source Oral Pulse Rate [Right Brachial] 70 Respiratory Rate 19 Blood Pressure [Right Arm] 139/91 H Blood Pressure Mean [Right Arm] 107 Blood Pressure Source [Right Arm] Automatic Cuff Blood Pressure Position [Right Arm] Sitting 02 Sat by Pulse Oximetry 97 Oxygen Delivery Method Room Air - Lab Data Lab results reviewed: Yes: I reviewed the patient's lab results. Lab Results 04/08/22 19:50: WBC 7.1, RBC 3.41 L, Hgb 10.2 L, Hct 33.0 L, MCV 97.0, MCH 29.8, MCHC 30.8 L, RDW 16.8, Plt Count 162, MPV 9.4, Neut % (Auto) 65.6, Lymph % (Auto) 24.7, Moore % (Auto) 4.7, Eos % (Auto) 4.5, Baso % (Auto) 0.6, Neut # (Auto) 4.7, Lymph # (Auto) 1.8, Moore # (Auto) 0.3, Eos # (Auto) 0.3, Baso # (Auto) 0.0, ESR 108 H 04/08/22 19:50: Sodium 138, Potassium 4.5, Chloride 99, Carbon Dioxide 34 H, Anion Gap 9.5, BUN 25 H, Creatinine 1.50 H, Estimated Creat Clear 42, Estimated GFR 34 L, Est GFR ( Amer) 41 L, Glucose 127 H, Calcium 8.4, Total Bilirubin < 0.1 L, AST 23, ALT 14, Alkaline Phosphatase 111, C-Reactive Protein 7.0 H, Total Protein 6.3, Albumin 3.7, Globulin 2.6, Albumin/Globulin Ratio 1.4, Procalcitonin 0.055 04/08/22 21:41: Urine Color Yellow, Urine Appearance Clear, Urine pH 6.0, Ur Specific [place] 1.025, Urine Protein Negative, Urine Glucose (UA) Negative, Urine Ketones Negative, Urine Blood 2+, Urine Nitrate Negative, Urine Bilirubin Negative, Urine Urobilinogen 0.2, Ur Leukocyte Esterase 1+ A, Urine RBC 3-5, Urine WBC 20-50, Ur Squamous Epith Cells 3-5, Urine Bacteria 1+ Result diagrams: 04/08/22 19:50 04/08/22 19:50 Orders (Tests/Meds): ED MEDICATIONS Generic Name Dose Route Start Last Admin Trade Name Freq PRN Reason Stop Dose Admin Levofloxacin 500 mg 04/09/22 01:09 Levofloxacin 500mg Tab PO 04/09/22 01:10 ONCE ONE Methylprednisolone Sodium Succinate 125 mg 04/09/22 01:09 Methylprednisolone Sod Succ 125mg Vial IV 04/09/22 01:10 ONCE ONE ORDERS Category Date Time Status Urine Culture Stat Micro 04/08/22 21:41 Received - CT Data CT Scan: Head Time Received: 01:[address] Reviewed: Yes: I have viewed the radiologist's interpretation Preliminary Findings: Normal/NAD Medical Decision Narrative: possible temp arteritis and stable exam and uti was noted Headache HPI - General Chief Complaint: Headache Stated Complaint: Head pain Time Seen by Provider: 04/09/22 01:11 Mode of Arrival: Family Vehicle Source of Information: Patient, Spouse, Medical Record Limitations: Physical Limitations Description o
== END 2022-04-09 01:41 | disposition home or self-care (01) ==
PROVIDERS: Emergency Provider Emergency Medicine; PCP Internal Medicine
DX: N39.0 Urinary tract infection, site not specified (principal); M31.6 Other giant cell arteritis; Z88.1 Allergy status to other antibiotic agents; Z88.2 Allergy status to sulfonamides; Z88.6 Allergy status to analgesic agent; Z88.8 Allergy status to other drugs, medicaments and biological substances; I48.91 Unspecified atrial fibrillation; J44.9 Chronic obstructive pulmonary disease, unspecified; I11.0 Hypertensive heart disease with heart failure; I50.9 Heart failure, unspecified; G43.909 Migraine, unspecified, not intractable, without status migrainosus; E11.9 Type 2 diabetes mellitus without complications
CPT/HCPCS: 70450; 80053; 81001; 84145; 85025; 85651; 86140; 87086; 93005; 99284

== ENCOUNTER → 2022-05-14 16:40 | Outpatient (CLI) | payer MEDICARE, SELFPAY ==
[2022-05-14 17:20] LABS: Basophils % 0.2 % (0.1-2.0); Eosinophils # 0.3 K/mm3 (0.0-0.4); Hematocrit 34.7 % (37.0-47.0); Hemoglobin 10.6 g/dL (12.2-16.2); Lymphocytes # 1.6 K/mm3 (0.7-4.5); Mean Corpuscular HGB Conc 30.5 g/dL (31.8-35.4); Mean Corpuscular Hemoglobin 29.7 pg (27.0-31.2); Mean Corpuscular Volume 97.6 fl (81-99); Monocytes # 0.4 K/mm3 (0.1-1.0); Monocytes % 3.7 % (1.7-9.3); Neutrophils # 7.1 K/mm3 (1.8-7.8); Platelet Count 186 K/mm3 (142-424); Red Blood Count 3.56 M/mm3 (4.20-5.40); Red Cell Distribution Width 16.3 % (11.5-17.5); White Blood Count 9.3 K/mm3 (4.8-10.8)
[2022-05-14 18:06] LABS: Hemoglobin A1C 7.5 % (4.0-6.0)
[2022-05-14 18:15] LABS: Alanine Aminotransferase 14 U/L (12-78); Albumin Level 3.2 g/dl (3.5-5.0); Albumin/Globulin Ratio 1.3 (1.1-1.8); Alkaline Phosphatase 119 U/L (38-126); Anion Gap 10.1 mEq/L (5-15); Aspartate Amino Transferase 22 U/L (14-36); Blood Urea Nitrogen 24 mg/dl (7-17); Calcium 8.2 mg/dl (8.4-10.2); Carbon Dioxide 33 mmol/L (22.0-30.0); Chloride 102 mmol/L (98-107); Chol/HDL Ratio 2.3 (1-3.5); Cholesterol 108 mg/dl (140-200); Estimated Glomerular Filt Rate 31 ml/min (>60); GFR (African American) 38 ML/MIN (>60); Globulin 2.4 g/dL (1.3-3.2); Glucose 117 mg/dl (74-100); HDL Cholesterol 47 mg/dl (40-60); Potassium 4.1 mmoL/L (3.5-5.1); Sodium 141 mmol/L (136-145); Total Protein,Serum 5.6 g/dl (6.3-8.2); Triglycerides 84 mg/dl (30-150); VLDL Cholesterol 17 mg/dL (0-40)
[2022-05-14 18:19] LABS: Bilirubin,Total < 0.1 mg/dl (0.2-1.3)
[2022-05-16 10:09] LABS: Direct LDL Cholesterol 49 mg/dL (100-129)
== END ==
PROVIDERS: PCP Internal Medicine; Visit Provider Internal Medicine
DX: E11.40 Type 2 diabetes mellitus with diabetic neuropathy, unspecified (principal); E11.65 Type 2 diabetes mellitus with hyperglycemia; E03.9 Hypothyroidism, unspecified; E78.5 Hyperlipidemia, unspecified; Z79.01 Long term (current) use of anticoagulants; Z79.4 Long term (current) use of insulin
CPT/HCPCS: 36415; 80053; 80061; 83036; 85025

== ENCOUNTER → 2022-05-28 12:59 | Outpatient (CLI) | payer MEDICARE, SELFPAY ==
--- NOTE | 2022-05-28 13:03 | US_ITS ---
FINAL REPORT CLINICAL HISTORY: ELEVATED renal function COMPARISON: Ultrasound imaging of the retroperitoneum was obtained. FINDINGS: The right kidney measures 9.4 cm in length. The left kidney measures 9.9 cm in length. There is normal renal echogenicity. No renal mass or hydronephrosis is seen. The spleen measures 11 cm and is normal. IMPRESSION: Unremarkable exam. Reviewed, Interpreted and Dictated by Samuel Schneider III, MD Transcribed by Renetta Spring Authenticated and [facility]
--- NOTE | 2022-05-28 13:03 | US_ITS ---
FINAL REPORT TECHNIQUE: Ultrasound imaging of the urinary bladder was obtained. CLINICAL HISTORY: ELEVATED renal FUNCTION, anemia FINDINGS: Urinary bladder volume is 94 mL prevoid. No postvoid measurement obtained. IMPRESSION: Urinary bladder volume 94 mL prevoid. Reviewed, Interpreted and Dictated by Samuel Schneider III, MD Transcribed by Renetta Spring Authenticated and [facility]
[2022-05-28 15:37] LABS: Iron 40 ug/dL (37-170)
[2022-05-28 15:47] LABS: Total Iron Binding Capacity 305 ug/dL (265-497)
[2022-05-28 16:25] LABS: Vitamin B12 406 pg/mL (239-931)
[2022-05-28 17:53] LABS: Microalbumin/Creatinine Ratio 12.1
[2022-05-28 17:57] LABS: Creatinine,Urine Random 83 mg/dL (Not Estab.)
== END ==
LOC: RAD 12:59
PROVIDERS: PCP Internal Medicine; Visit Provider Internal Medicine
DX: R94.4 Abnormal results of kidney function studies (principal); D50.8 Other iron deficiency anemias
CPT/HCPCS: 36415; 76770; 76857; 82043; 82570; 82607; 83540; 83550

== ENCOUNTER 2022-07-01 15:46 | Emergency (ER) | payer MEDICARE, SELFPAY ==
[2022-07-01 15:47] VITALS: BP 113/69; PULSE 70; RESP 18; TEMP 37; O2SAT 95; BMI 33.4
--- NOTE | 2022-07-01 16:13 | XR_ITS ---
PROCEDURE INFORMATION: Exam: XR Right Foot Exam date and time: 07/01/2022 4:14 PM Age: 76 years old Clinical indication: Injury or trauma; Fall; Blunt trauma; Foot; Right; Additional info: Injury to right foot, painful, and patient stated she is diabetic TECHNIQUE: Imaging protocol: Radiologic exam of the Right foot. Views: 3 or more views. COMPARISON: CR FTR3 FOOT-RT-3 VIEWS 09/10/2017 1:58 PM FINDINGS: Bones/joints: Degenerative changes of the foot. Calcaneal spurs are present. There is no evidence of acute fracture. There is no evidence of joint malalignment or dislocation. Soft tissues: Mild soft tissue swelling. IMPRESSION: 1. Degenerative changes of the foot. 2. No evidence of acute fracture. 3. Mild soft tissue swelling. 4. No evidence of acute dislocation.
--- NOTE | 2022-07-01 16:49 | EXP.UTC ---
Discharge Plan Disposition Patient Disposition: Home, Self-Care Condition: Good Prescriptions Prescriptions: No Action apixaban 5 mg tablet 5 mg PO BID hydroxychloroquine 200 mg tablet 1 mg PO BID diclofenac sodium 1 % gel 2 g TOPICAL DAILY cefdinir 300 mg capsule 300 mg PO prednisone 10 mg tablet 10 mg PO fentanyl 50 mcg/hr patch 72 hour 1 patch TRANSDERMA Q72H insulin aspart U-100 [Novolog U-100 Insulin aspart] 100 unit/mL solution 18 unit SQ QID Rx Instructions: BEFORE MEALS AND AT BEDTIME fentanyl 12 mcg/hr patch 72 hour 1 patch TRANSDERMA Q72H escitalopram oxalate [Lexapro] 5 mg tablet 5 mg PO DAILY atorvastatin 40 MG tablet 40 mg PO HS bisoprolol fumarate 10 MG tablet 10 mg PO DAILY pantoprazole [address] for susp in packet 40 mg PO DAILY melatonin 10 MG capsule 10 mg PO HS furosemide 40 mg tablet 40 mg PO DAILYP polyethylene glycol 3350 17 gram/dose powder 17 g PO BID alprazolam 0.5 MG tablet 0.5 mg PO TID PRN (Reason: Anxiety) 30 Days 0RF insulin glargine 100 unit/mL solution 70 units SQ HS Rx Instructions: 70 SQ at bedtime nightly; acetaminophen 500 mg tablet 500 mg PO BID PRN (Reason: Pain) gabapentin 800 mg tablet 800 mg PO .COMPLEX Rx Instructions: 800 mg PO qid; ipratropium-albuterol 3 ML solution for nebulization 3 ml IH QIDRT PRN (Reason: SOA) oxycodone 10 mg tablet 10 mg PO Q4H PRN (Reason: pain) prednisone 20 MG tablet 20 mg PO BID Qty: 10 0RF levofloxacin 500 MG tablet 500 mg PO DAILY Qty: 7 0RF Referrals Follow up/Referrals: Geovany Medel MD [Primary Care Provider] - See instructions Activity Restrictions/Add. Instructions Additional Instructions/Restrictions: Rest the extremity, Elevate the extremity as tolerated while you are resting. Follow up with Dr. Bowers (Podiatry). Sometimes there can be fractures that don't show up well on the first set of x-rays. I put in a referral but you need to call his office and schedule an appointment. Follow up with your regular doctor. GO TO THE ER FOR ANY WORSENING SYMPTOMS Clinical Impressions Clinical Impression: Crush injury of right foot Instructions Patient Instructions: DI for Crush Injury, How to Apply an Elastic Wrap on Ankle Discharge ED Provider: Shun Acosta [facility] HPI General Stated complaint: [id number] injured R Foot Mode of Arrival: Wheelchair Limitations: No Limitations Time Seen by Provider: 07/01/22 16:49 Description of Symptoms (Recalled from Triage Doc. by RN): RAN OVER HER RIGHT FOOT WITH HER WHEELCHAIR AND CONTINUES TO HAVE PAIN HEENT Symptoms (Recalled from RN notes): No Resp Symptoms (Recalled from RN notes): No Skin Symptoms (Recalled from RN notes): No MS Symptoms (Recalled from RN notes): Yes Functional Status (Recalled from RN notes): NA History of Present Illness Provider Complaint: She states that 2 days ago she accidently ran over her right foot with her wheel chair. She has had pain of the dorsal aspect of her foot near the base of her her toes since. Related Data Home Medications Medication Instructions Recorded Confirmed atorvastatin 40 mg tablet 40 mg PO HS Cholesterol 01/06/18 06/01/22 bisoprolol fumarate 10 mg tablet 10 mg PO DAILY bp 01/06/18 06/01/22 melatonin 10 mg capsule 10 mg PO HS sleep 01/06/18 06/01/22 pantoprazole 40 mg granules 40 mg PO DAILY Heartburn 01/06/18 06/01/22 delayed-release for susp in packet fentanyl 50 mcg/hr transdermal 1 patch transdermal Q72H chronic 02/07/18 06/01/22 patch pain apixaban 5 mg tablet 5 mg PO BID Blood thinner 07/23/19 06/01/22 insulin aspart U-100 100 unit/mL 18 unit SQ QID Diabetes 11/29/19 06/01/22 subcutaneous solution (Novolog U-100 Insulin aspart) oxycodone 10 mg tablet 10 mg PO Q4H PRN pain 11/29/19 06/01/22 hydroxychloroquine 200 mg tablet 1 m
[2022-07-01 17:47] VITALS: BP 113/79; PULSE 70; RESP 18; TEMP 37; O2SAT 95
== END 2022-07-01 17:48 | disposition home or self-care (01) ==
PROVIDERS: Emergency Provider Nurse Practitioner Family; PCP Internal Medicine
DX: V00.818A Other accident with wheelchair (powered), initial encounter (principal); S97.81XA Crushing injury of right foot, initial encounter
CPT/HCPCS: 73630; 99212; G0463

== ENCOUNTER → 2022-07-28 17:06 | Outpatient (CLI) | payer MEDICARE, SELFPAY | PROVIDERS: PCP Internal Medicine; Visit Provider Internal Medicine | DX: N39.0 Urinary tract infection, site not specified (principal); B95.2 Enterococcus as the cause of diseases classified elsewhere | CPT/HCPCS: 87086; 87088; 87186 ==

== ENCOUNTER 2022-07-30 16:00 | Observation (INO) | payer MEDICARE, SELFPAY ==
[2022-07-30 16:33] VITALS: BP 102/63; PULSE 88; RESP 16; TEMP 36.8; O2SAT 93; BMI 30.7
--- NOTE | 2022-07-30 16:34 | CT_ITS ---
PROCEDURE INFORMATION: Exam: CTA Head With Contrast, Arteriography Exam date and time: 07/30/2022 5:15 PM Age: 76 years old Clinical indication: Stroke-like symptoms; Altered mental status/memory loss; Additional info: Stroke protocol TECHNIQUE: Imaging protocol: Computed tomographic angiography of the head with contrast. Exam focused on the arteries. 3D rendering (Not supervised by radiologist): MIP and/or 3D reconstructed images were created by the technologist. Radiation optimization: All CT scans at this facility use at least one of these dose optimization techniques: automated exposure control; mA and/or kV adjustment per patient size (includes targeted exams where dose is matched to clinical indication); or iterative reconstruction. Contrast material: ISO 370; Contrast volume: 100 ml; Contrast route: INTRAVENOUS (IV); COMPARISON: CT HEAD/BRAIN WO CON 04/08/2022 7:13 PM, head CT 07/30/2022 FINDINGS: Limitations: Axial images are 2.5 mm. There are no thin slice axial images provided. ANTERIOR CIRCULATION: Right internal carotid artery: Intracranial segment is patent with no significant stenosis. No aneurysm. Right middle cerebral artery: No occlusion or significant stenosis. No aneurysm. Right anterior cerebral artery: There is fusiform aneurysmal dilatation of the origin of the distal A2 segment of the right anterior cerebral artery. The diameter is 4 mm relative to a more proximal diameter of 2.4 mm. As best seen on series 5, image 47 there are more saccular components of this aneurysm extending both medially and laterally. Both of these saccular components measure approximately 1.5 mm. Total diameter at this level is 6 mm. This is in the area of calcification on the noncontrast head CT. This was also present on the head CT of 04/08/2022 and 09/23/2021. No stenosis or occlusion of the right anterior cerebral artery. Left internal carotid artery: Intracranial segment is patent with no significant stenosis. No aneurysm. Left middle cerebral artery: No occlusion or significant stenosis. No aneurysm. Left anterior cerebral artery: No occlusion or significant stenosis. No aneurysm. POSTERIOR CIRCULATION: Right vertebral artery: No occlusion or significant stenosis. No aneurysm. Left vertebral artery: No occlusion or significant stenosis. No aneurysm. Basilar artery: No occlusion or significant stenosis. No aneurysm. Right posterior cerebral artery: No occlusion or significant stenosis. No aneurysm. Left posterior cerebral artery: No occlusion or significant stenosis. No aneurysm. Brain: See head CT. IMPRESSION: 1. No intracranial large vessel stenosis or occlusion. 2. 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
--- NOTE | 2022-07-30 16:34 | XR_ITS ---
PROCEDURE INFORMATION: Exam: XR Chest Exam date and time: 07/30/2022 5:42 PM Age: 76 years old Clinical indication: Injury or trauma; Fall; Cough; Blunt trauma (contusions or hematomas); Additional info: Cough fall TECHNIQUE: Imaging protocol: Radiologic exam of the chest. Views: 1 view. COMPARISON: CR XR CHEST PORTABLE 10/03/2021 6:01 PM FINDINGS: Tubes, catheters and devices: Left chest wall pacemaker . Lungs: Mild chronic interstitial prominence. No focal consolidation. Pleural spaces: Unremarkable. No pleural effusion. No pneumothorax. Heart/Mediastinum: There is stable cardiomegaly. Bones/joints: Unremarkable. IMPRESSION: 1. Cardiomegaly. 2. No acute findings
--- NOTE | 2022-07-30 16:34 | CT_ITS ---
PROCEDURE INFORMATION: Exam: CTA Neck With Contrast Exam date and time: 07/30/2022 5:15 PM Age: 76 years old Clinical indication: Stroke-like symptoms; Altered mental status/memory loss; Additional info: Stroke protocol TECHNIQUE: Imaging protocol: Computed tomographic angiography of the neck with contrast. 3D rendering (Not supervised by radiologist): MIP and/or 3D reconstructed images were created by the technologist. Radiation optimization: All CT scans at this facility use at least one of these dose optimization techniques: automated exposure control; mA and/or kV adjustment per patient size (includes targeted exams where dose is matched to clinical indication); or iterative reconstruction. Contrast material: ISO 370; Contrast volume: 75 ml; Contrast route: INTRAVENOUS (IV); COMPARISON: CT HEAD/BRAIN WO CON 04/08/2022 7:13 PM FINDINGS: Tubes, catheters and devices: There is a pacemaker in the left anterior chest wall. Right common carotid artery: The right common carotid artery is partly retropharyngeal in its course. No stenosis. Right internal carotid artery: No stenosis of the extracranial segment. No dissection or occlusion. Right external carotid artery: No occlusion or stenosis of the origin. Left common carotid artery: No stenosis. No dissection or occlusion. Left internal carotid artery: There is mild calcified plaque in the proximal left internal carotid artery. No stenosis. The left internal carotid artery is partly retropharyngeal in its course. Left external carotid artery: No occlusion or stenosis of the origin. Right vertebral artery: No stenosis. No dissection or occlusion. Left vertebral artery: No stenosis. No dissection or occlusion. Soft tissues: Unremarkable Bones/joints: There is anterior fusion from C4-C6. IMPRESSION: No carotid or vertebral artery stenosis. REFERENCES: NASCET CRITERIA. The degree of stenosis in the cervical segment of the internal carotid artery is based on NASCET criteria. Normal is no stenosis. Mild is less than 50% stenosis. Moderate is 50-69% stenosis. Severe is 70% to 99% stenosis. Total occlusion is no detectable patent lumen.
--- NOTE | 2022-07-30 16:34 | CT_ITS ---
PROCEDURE INFORMATION: Exam: CT Head Without Contrast Exam date and time: 07/30/2022 5:15 PM Age: 76 years old Clinical indication: Stroke-like symptoms; Altered mental status/memory loss; Additional info: Stroke protocol TECHNIQUE: Imaging protocol: Computed tomography of the head without contrast. Radiation optimization: All CT scans at this facility use at least one of these dose optimization techniques: automated exposure control; mA and/or kV adjustment per patient size (includes targeted exams where dose is matched to clinical indication); or iterative reconstruction. Other technique: STROKE PROTOCOL was implemented. COMPARISON: CT HEAD/BRAIN WO CON 04/08/2022 7:13 PM FINDINGS: Brain: There is no evidence of infarct, elder-white matter differentiation is preserved. There is no hemorrhage or extra-axial collection. There is no mass. As seen on series 3 images 36-38 there is a calcification present in the anterior interhemispheric fissure. The calcification appears vascular and the location would indicate the right anterior cerebral artery. Cerebral ventricles: There is no hydrocephalus. Paranasal sinuses: Visualized sinuses are unremarkable. No fluid levels. Mastoid air cells: Visualized mastoid air cells are well aerated. Bones/joints: Unremarkable. No acute fracture. Soft tissues: Unremarkable. IMPRESSION: 1. No acute intracranial lesion or injury. 2. Vascular calcification in the expected location of the right anterior cerebral artery. The size of the calcification is suspicious for a possible JUAN C small aneurysm. CTA is pending. ASSESSMENT: ASPECTS ([place] Stroke Program Early CT Score) is 10.
--- NOTE | 2022-07-30 16:39 | HMH.EDGENADL ---
Discharge Plan Disposition Patient Disposition: Admitted As Inpatient Condition: Fair Chief Complaint: Weakness Clinical Impressions Clinical Impression: Encephalopathy acute, Pneumonia, Hypoglycemia, Sepsis Discharge ED Provider: Shahid Castillo General Adult HPI General Chief complaint: Weakness Stated complaint: Sent from Dr. 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 Over the last 30 hours patient has become progressively encephalopathic, intermittent rhythmic movement of her bilateral upper and lower extremities. Patient reportedly had a ground-level fall onto her right knee this morning. Did not strike her head, no loss of consciousness. Patient is also had a cough over the last week with productive sputum. Patient presented to family doctor who referred her here for continued evaluation. Related Data Home Medications Medication Instructions Recorded Confirmed atorvastatin 40 mg tablet 40 mg PO HS Cholesterol 01/06/18 06/01/22 bisoprolol fumarate 10 mg tablet 10 mg PO DAILY bp 01/06/18 06/01/22 melatonin 10 mg capsule 10 mg PO HS sleep 01/06/18 06/01/22 pantoprazole 40 mg granules 40 mg PO DAILY Heartburn 01/06/18 06/01/22 delayed-release for susp in packet fentanyl 50 mcg/hr transdermal 1 patch transdermal Q72H chronic 02/07/18 06/01/22 patch pain apixaban 5 mg tablet 5 mg PO BID Blood thinner 07/23/19 06/01/22 insulin aspart U-100 100 unit/mL 18 unit SQ QID Diabetes 11/29/19 06/01/22 subcutaneous solution (Novolog U-100 Insulin aspart) oxycodone 10 mg tablet 10 mg PO Q4H PRN pain 11/29/19 06/01/22 hydroxychloroquine 200 mg tablet 1 mg PO BID Rheumatoid arthritis 03/17/20 06/01/22 ipratropium 0.5 mg-albuterol 3 mg 3 ml inhalation QIDRT PRN SOA 03/19/20 06/01/22 (2.5 mg base)/3 mL nebulization soln fentanyl 12 mcg/hr transdermal 1 patch transdermal Q72H Pain 01/08/21 06/01/22 patch acetaminophen 500 mg tablet 500 mg PO BID PRN Pain 09/02/21 06/01/22 diclofenac sodium 1 % topical gel 2 g topical DAILY Pain 09/02/21 06/01/22 furosemide 40 mg tablet 40 mg PO DAILYP HYPERTENSION 09/02/21 06/01/22 gabapentin 800 mg tablet 800 mg PO .COMPLEX NEUROPATHY 09/02/21 06/01/22 insulin glargine 100 unit/mL 70 units SQ HS SUGAR 09/02/21 06/01/22 subcutaneous solution polyethylene glycol 3350 17 17 g PO BID constipation 09/02/21 06/01/22 gram/dose oral powder escitalopram oxalate 5 mg tablet 5 mg PO DAILY 12/28/21 06/01/22 (Lexapro) cefdinir 300 mg capsule 300 mg PO 02/11/22 06/01/22 prednisone 10 mg tablet 10 mg PO 02/11/22 06/01/22 Previous Rx's Medication Instructions Recorded alprazolam 0.5 mg tablet 0.5 mg PO TID PRN Anxiety 30 days 05/08/18 levofloxacin 500 mg tablet 500 mg PO DAILY #7 tabs 04/09/22 prednisone 20 mg tablet 20 mg PO BID #10 tabs 04/09/22 Allergies Allergy/AdvReac Type Severity Reaction Status Date / Time amitriptyline [From Elavil] Allergy Severe [id number]/THROAT; Verified 06/01/22 10:53 SEIZURES chlorpromazine Allergy Severe SEIZURES Verified 06/01/22 10:53 [From Thorazine] dichloralphenazone Allergy Severe S-SWELLS-OR Verified 06/01/22 10:53 [From Midrin] AL/THROAT isometheptene [From Midrin] Allergy Severe S-SWELLS-OR Verified 06/01/22 10:53 AL/THROAT prochlorperazine Allergy Severe SEIZURES Verified 06/01/22 10:53 [From Compazine] adhesive tape Allergy Intermediate I-RASH Verified 06/01/22 10:53 aspirin Allergy Intermediate COLD Verified 06/01/22 10:53 SWEATS , N/V cyclobenzaprin
--- NOTE | 2022-07-30 17:24 | PC.NURSE ---
BLOOD SENT TO LAB
[2022-07-30 17:30] LABS: Basophils % 0.2 % (0.1-2.0); Eosinophils % 0.4 % (0.1-12.0); Hemoglobin 10.1 g/dL (12.2-16.2); Lymphocytes # 0.5 K/mm3 (0.7-4.5); Lymphocytes % 5.8 % (10-50); Mean Corpuscular HGB Conc 31.5 g/dL (31.8-35.4); Mean Corpuscular Hemoglobin 31.1 pg (27.0-31.2); Mean Corpuscular Volume 98.9 fl (81-99); Mean Platelet Volume 9.2 fl (7.4-10.4); Monocytes # 0.5 K/mm3 (0.1-1.0); Monocytes % 5.5 % (1.7-9.3); Neutrophils # 8.2 K/mm3 (1.8-7.8); Neutrophils % 88.1 % (37.0-80.0); Platelet Count 141 K/mm3 (142-424); Red Blood Count 3.23 M/mm3 (4.20-5.40); Red Cell Distribution Width 16.5 % (11.5-17.5); White Blood Count 9.3 K/mm3 (4.8-10.8)
[2022-07-30 17:35] LABS: Chloride 100 mmol/L (98-107); MANUAL DIFFERENTIAL MANUAL DIFFERENTIAL (MANUAL DIFF); Potassium 4.3 mmoL/L (3.5-5.1); Sodium 145 mmol/L (136-145)
--- NOTE | 2022-07-30 17:35 | PC.NURSE ---
PT RETURNED FROM CT
[2022-07-30 17:37] LABS: Alanine Aminotransferase 19 U/L (12-78); Aspartate Amino Transferase 32 U/L (14-36); Blood Urea Nitrogen 49 mg/dl (7-17); Creatinine Clearance Estimated 31 mL/min (50-200); Estimated Glomerular Filt Rate 23 ml/min (>60); GFR (African American) 28 ML/MIN (>60)
[2022-07-30 17:38] LABS: Albumin Level 3.6 g/dl (3.5-5.0); Albumin/Globulin Ratio 1.5 (1.1-1.8); Alkaline Phosphatase 106 U/L (38-126); Anion Gap 13.3 mEq/L (5-15); Bilirubin,Total 0.4 mg/dl (0.2-1.3); Calcium 8.3 mg/dl (8.4-10.2); Carbon Dioxide 36 mmol/L (22.0-30.0); Globulin 2.4 g/dL (1.3-3.2); Lactic Acid 1.5 mmol/L (0.7-2.1)
[2022-07-30 17:53] LABS: C-Reactive Protein 34.7 mg/L (0-4)
[2022-07-30 18:01] LABS: Glucose 32 mg/dl (74-100)
--- NOTE | 2022-07-30 18:02 | PC.NURSE ---
1802 CRITICAL GLUCOSE OF 32 FROM [facility] IN LAB. PT NAME AND , R/V. DR. HARDIN NOTIFIED
--- NOTE | 2022-07-30 18:08 | PC.NURSE ---
ANESTHESIA PAGED AT THIS TIME
--- NOTE | 2022-07-30 18:08 | PC.NURSE ---
VERIFIED VANC AND CEFEPIME DOSING WITH NIGHTWATCH.
[2022-07-30 18:28] LABS: Lymphocytes % 9 % (10-50); Monocytes % 4 % (2-9); Neutrophils % 87 % (42-76); Platelet Estimate Normal; RBC Morphology Normal; Total Cells Counted 100
[2022-07-30 18:36] LABS: VBG Base Excess 3.9 mmol/L (-2.4-2.3); VBG HCO3 29.6 mmol/L (23-30); VBG PH 7.34 mmol/L (7.31-7.41); VBG PO2 112.9 mmol/L (28-40); VBG Total CO2 31.3 mmol/L (23-27)
[2022-07-30 19:18] LABS: VBG PCO2 55.9 mmol/L (35-51)
--- NOTE | 2022-07-30 20:21 | XR_ITS ---
PROCEDURE INFORMATION: Exam: XR Right Knee Exam date and time: 07/30/2022 8:38 PM Age: 76 years old Clinical indication: Injury or trauma; Fall; Blunt trauma; Knee; Right TECHNIQUE: Imaging protocol: Radiologic exam of the Right knee. Views: 1 or 2 views. COMPARISON: CR XR KNEE RT 3V 09/22/2021 4:17 PM FINDINGS: Bones/joints: There is no fracture of the distal femur, proximal tibia, proximal fibula or patella. There is no dislocation. There are small marginal osteophytes. There are small patellofemoral osteophytes. There is a superior patellar enthesophyte. No bone erosion or periosteal reaction. Soft tissues: Normal. IMPRESSION: 1. No fracture. 2. Mild osteoarthritis.
[2022-07-30 20:38] LABS: Creatine Kinase 151 U/L (30-135)
[2022-07-30 22:32] LABS: POC Glucose,Bedside 91 (70-110)
[2022-07-30 22:38] LABS: Coronavirus 19, PCR Not Detected (NotDetected); Influenza B, PCR Not Detected (NotDetected)
[2022-07-30 22:49] VITALS: BP 110/58; PULSE 74; RESP 16; TEMP 36.6; O2SAT 96
--- NOTE | 2022-07-30 22:49 | PC.NURSE ---
patient up to floor via stretcher @ this time.
--- NOTE | 2022-07-30 23:01 | EXP.HP ---
History of Present Illness *Admission Date: 07/30/22 *Reason for visit:: Acute encephalopathy, weakness, hypoglycemia *History of present illness: July 30, 2022 history and physical. I saw and examined this patient in the emergency department. On examination of this patient she appears to be in no acute distress and nontoxic in nature. This patient is a 76-year-old female who presented to the emergency department with complaints of having progressive, intermittent movement of both of her upper and lower extremities. This patient reportedly had a ground-level fall onto her right knee earlier this morning as well. Patient and both advised that she did not hit her head. This patient was seen and evaluated in the emergency department and admitted to the medical surgical floor for observation. This patient has multiple comorbid diagnoses and takes multiple medications up to and including fentanyl and oxycodone as well as a benzodiazepine. While in the emergency department it was discovered the patient did have a low blood sugar which was treated with standard D50 as well as 500 cc of fluids. Radiological studies did reveal bilateral diffuse opacities that have the possibility for pneumonia. White blood cell count is within normal range, hemoglobin and hematocrit is slightly decreased at 10.1 and 32. Chemistry panel did reveal kidney injury with a BUN of 49 and a creatinine of 2.10 as well as hypoglycemic episode of 32. After the dose of D50 for the content glucose was 91. CK Level is 151. C-reactive protein is 34.7 and the patient is positive for flu A. We are pending a urine drug screen as well as urinalysis. We will continue to follow plan of clinical treatment. [facility] Social History Smoking Status: Never smoker second hand exposure: No alcohol intake: never substance use type: denies use current occupational status: disabled Travel in the last 8 weeks: None household members: spouse and other housing: other number of children: 3 current occupational exposures/hazards: No caffeine: Yes Review of Systems Review of Systems Review of systems:: pertinent systems reviewed and negative unless documented below Constitutional Constitutional: Reports system reviewed and no additional complaints, except as documented, Reports as per HPI, Reports fatigue, Reports frequent falls, Reports headache(s), Reports lethargy, Reports malaise and Reports weakness Eyes Eyes: Reports system reviewed and no additional complaints, except as documented and Reports as per HPI ENT Ears, Nose, Mouth, and Throat: Reports system reviewed and no additional complaints, except as documented, Reports as per HPI, Reports headache(s) and Reports neck pain *Cardiovascular Cardiovascular: Reports system reviewed and no additional complaints, except as documented, Reports as per HPI, Reports chest pain at rest, Reports dyspnea, Reports dyspnea on exertion, Reports leg edema and Reports lightheadedness *Respiratory Respiratory: Reports system reviewed and no additional complaints, except as documented, Reports as per HPI, Reports cough, Reports dyspnea, Reports dyspnea on exertion, Reports pain on inspiration and Reports pain with cough *Gastrointestinal Gastrointestinal: Reports system reviewed and no additional complaints, except as documented and Reports as per HPI *Genitourinary Genitourinary: Reports system reviewed and no additional complaints, except as documented and Reports as per HPI *Musculoskeletal Musculoskeletal: Reports system reviewed and no additional complaints, except as documented, Reports as per HPI, Reports arthralgias, Reports back pain, Reports joint swelling, Reports limited range of motion, Reports muscle weakness and Reports neck pain Integumentary/Breasts Skin/Breast: Reports system reviewed and no additional complaints, except as documented and Reports as per HPI *Neurolo
[2022-07-30 23:12] VITALS: BP 110/78; PULSE 81; RESP 16; TEMP 36.8; O2SAT 93
[2022-07-30 23:13] LABS: Influenza A, PCR Detected (NotDetected)
[2022-07-30 23:16] LABS: Microscopic, Urine URINE MICROSCOPIC (MICROSCOPIC)
--- NOTE | 2022-07-30 23:35 | PC.NURSE ---
Patient had one unmeasured void
[2022-07-30 23:42] LABS: Amphetamine/Metha Screen,Urine Negative ng/ml (<1000); Barbiturates Screen,Urine Negative ng/ml (<200)
[2022-07-30 23:43] LABS: Benzodiazepines Screen,Urine Positive ng/ml (<200)
[2022-07-30 23:44] LABS: Appearance,Urine CLEAR (Clear); Bilirubin,Urine Negative (Negative); Blood, Urine Negative (Negative); Cannabinoid Screen,Urine Negative ng/ml (<50); Cocaine Screen,Urine Negative ng/ml (<300); Color,Urine YELLOW (Yellow); Glucose,Urine (UA) Negative (Negative); Ketones,Urine Negative (Negative); Leukocyte Esterase,Urine 1+ (Negative); Nitrate,Urine Negative (Negative); Protein,Urine Negative (Negative); Urobilinogen,Urine 0.2 EU/dl (0.2)
[2022-07-30 23:45] LABS: Methadone Screen,Urine Negative ng/ml (<300)
[2022-07-30 23:46] LABS: Opiate Screen,Urine Negative ng/ml (<300); Phencyclidine Screen,Urine Negative ng/ml (<25)
[2022-07-31] VITALS (8 sets, daily range): BP systolic 117–147; BP diastolic 54–73; PULSE 69–87; RESP 17–20; TEMP 36.6–37.3; O2SAT 96–99; BMI 38.8
[2022-07-31 00:48] LABS: Bacteria,Urine 1+ /lpf
--- NOTE | 2022-07-31 04:34 | PC.NURSE ---
Shift summary: Pt is alert to person, place, and situation. Pt has not voiced any c/o to staff. Tolerating 2 L nc well with sats in upper 90s. Urine specimen collected prior to medication administration. is at bedside. Call light within reach.
--- NOTE | 2022-07-31 09:19 | EXP.PHA.CONS ---
Pharmacy Consult Date: 07/31/22 Time: 09:19 Referring provider: DR. RODRIGUEZ Reason for Consult:: VANCOMYCIN DOSING Allergies Allergy/AdvReac Type Severity Reaction Status Date / Time amitriptyline [From Elavil] Allergy Severe [id number]/THROAT; Verified 06/01/22 10:53 SEIZURES chlorpromazine Allergy Severe SEIZURES Verified 06/01/22 10:53 [From Thorazine] dichloralphenazone Allergy Severe S-SWELLS-OR Verified 06/01/22 10:53 [From Midrin] AL/THROAT isometheptene [From Midrin] Allergy Severe S-SWELLS-OR Verified 06/01/22 10:53 AL/THROAT prochlorperazine Allergy Severe SEIZURES Verified 06/01/22 10:53 [From Compazine] adhesive tape Allergy Intermediate I-RASH Verified 06/01/22 10:53 aspirin Allergy Intermediate COLD Verified 06/01/22 10:53 SWEATS , N/V cyclobenzaprine Allergy Unknown Unknown Verified 06/01/22 10:53 [From FLEXERIL] allergy reaction duloxetine [DULOXETINE] Allergy Unknown Unknown Verified 06/01/22 10:53 allergy reaction Iodinated Contrast Media Allergy Unknown Unknown Verified 06/01/22 10:53 [IODINATED CONTRAST MEDIA - allergy ORAL AND] reaction Sulfa (Sulfonamide Allergy Unknown CONTRAINDICATED Verified 06/01/22 10:53 Antibiotics) WITH ASTHMA trimethoprim [TRIMETHOPRIM] Allergy Unknown Unknown Verified 06/01/22 10:53 allergy reaction leflunomide Allergy rash, Verified 06/01/22 10:53 redness Macrolide Antibiotics Allergy rash, Verified 06/01/22 10:53 redness Beta-Blockers AdvReac Severe MAKES Verified 06/01/22 10:53 (Beta-Adrenergic Bloc ASTHMA WORSE caffeine [From Cafergot] AdvReac Mild NA-NAUSEA Verified 06/01/22 10:53 ergotamine [From Cafergot] AdvReac Mild NA-NAUSEA Verified 06/01/22 10:53 pregabalin [From Lyrica] AdvReac Mild TOO Verified 06/01/22 10:53 SEDATED NSAIDS (Non-Steroidal AdvReac Unknown Verified 06/01/22 10:53 Anti-Inflamma allergy reaction Home Medications Medication Instructions Recorded Confirmed Type atorvastatin 40 mg tablet 40 mg PO HS Cholesterol 01/06/18 07/31/22 History bisoprolol fumarate 10 mg tablet 10 mg PO DAILY bp 01/06/18 07/31/22 History melatonin 10 mg capsule 10 mg PO HS sleep 01/06/18 07/31/22 History pantoprazole 40 mg granules 40 mg PO DAILY Heartburn 01/06/18 07/31/22 History delayed-release for susp in packet fentanyl 50 mcg/hr transdermal 1 patch transdermal Q72H chronic 02/07/18 07/31/22 History patch pain alprazolam 0.5 mg tablet 0.5 mg PO TID PRN Anxiety 30 days 05/08/18 07/31/22 Rx apixaban 5 mg tablet 5 mg PO BID Blood thinner 07/23/19 07/31/22 History insulin aspart U-100 100 unit/mL 18 unit SQ QID Diabetes 11/29/19 07/31/22 History subcutaneous solution (Novolog U-100 Insulin aspart) oxycodone 10 mg tablet 10 mg PO Q4H PRN pain 11/29/19 07/31/22 History hydroxychloroquine 200 mg tablet 1 mg PO BID Rheumatoid arthritis 03/17/20 07/31/22 History ipratropium 0.5 mg-albuterol 3 mg 3 ml inhalation QIDRT PRN SOA 03/19/20 07/31/22 History (2.5 mg base)/3 mL nebulization soln fentanyl 12 mcg/hr transdermal 1 patch transdermal Q72H Pain 01/08/21 07/31/22 History patch acetaminophen 500 mg tablet 500 mg PO BID PRN Pain 09/02/21 07/31/22 History diclofenac sodium 1 % topical gel 2 g topical DAILY Pain 09/02/21 07/31/22 History furosemide 40 mg tablet 40 mg PO DAILYP HYPERTENSION 09/02/21 07/31/22 History gabapentin 800 mg tablet 800 mg PO .COMPLEX NEUROPATHY 09/02/21 07/31/22 History insulin glargine 100 unit/mL 70 units SQ HS SUGAR 09/02/21 07/31/22 History subcutaneous solution polyethylene glycol 3350 17 17 g PO BID constipation 09/02/21 07/31/22 History gram/dose oral powder escitalopram oxalate 5 mg tablet 5 mg PO DAILY Anxiety 12/28/21 07/31/22 History (Lexapro) cefdinir 300 mg capsule 300 mg PO DAILY Infection 02/11/22 07/31/22 History prednisone 10 mg tablet 10 mg PO DAILY Infection 02/11/22 07/31/22 History lev
[2022-07-31 09:29] LABS: Basophils % 0.2 % (0.1-2.0); Eosinophils % 0.1 % (0.1-12.0); Hematocrit 31.9 % (37.0-47.0); Hemoglobin 9.7 g/dL (12.2-16.2); Lymphocytes # 0.5 K/mm3 (0.7-4.5); Lymphocytes % 8.5 % (10-50); Mean Corpuscular HGB Conc 30.4 g/dL (31.8-35.4); Mean Corpuscular Hemoglobin 30.4 pg (27.0-31.2); Mean Corpuscular Volume 100.1 fl (81-99); Mean Platelet Volume 9.6 fl (7.4-10.4); Monocytes # 0.3 K/mm3 (0.1-1.0); Monocytes % 4.7 % (1.7-9.3); Neutrophils # 4.7 K/mm3 (1.8-7.8); Neutrophils % 86.5 % (37.0-80.0); Platelet Count 125 K/mm3 (142-424); Red Blood Count 3.18 M/mm3 (4.20-5.40); Red Cell Distribution Width 16.7 % (11.5-17.5); White Blood Count 5.4 K/mm3 (4.8-10.8)
[2022-07-31 09:30] LABS: MANUAL DIFFERENTIAL MANUAL DIFFERENTIAL (MANUAL DIFF)
[2022-07-31 09:33] LABS: Chloride 99 mmol/L (98-107); Potassium 5.6 mmoL/L (3.5-5.1); Sodium 142 mmol/L (136-145)
[2022-07-31 09:35] LABS: Blood Urea Nitrogen 49 mg/dl (7-17); Creatinine Clearance Estimated 41 mL/min (50-200); Estimated Glomerular Filt Rate 24 ml/min (>60); GFR (African American) 29 ML/MIN (>60)
[2022-07-31 09:36] LABS: Alanine Aminotransferase 20 U/L (12-78); Albumin Level 3.4 g/dl (3.5-5.0); Albumin/Globulin Ratio 1.4 (1.1-1.8); Alkaline Phosphatase 124 U/L (38-126); Anion Gap 14.6 mEq/L (5-15); Aspartate Amino Transferase 37 U/L (14-36); Bilirubin,Total 0.4 mg/dl (0.2-1.3); Calcium 7.9 mg/dl (8.4-10.2); Carbon Dioxide 34 mmol/L (22.0-30.0); Globulin 2.4 g/dL (1.3-3.2); Glucose 108 mg/dl (74-100); Magnesium 2.4 mg/dl (1.6-2.3); Total Protein,Serum 5.8 g/dl (6.3-8.2)
--- NOTE | 2022-07-31 09:40 | PC.NURSE ---
pt is lethargic and unable to communicate effectively this am. 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 took her medications fine this morning with pudding. required redirection for swallowing. spoke with hospitalist regarding pt insulin orders. did not give scheduled this am
[2022-07-31 09:45] LABS: NT Pro Brain Natriuretic Pep. 6910 pg/mL (0-450)
[2022-07-31 09:54] LABS: POC Glucose,Bedside 122 (70-110)
[2022-07-31 11:28] LABS: Hypochromasia 1+; Lymphocytes % 11 % (10-50); Macrocytosis 1+; Monocytes % 1 % (2-9); Neutrophils % 88 % (42-76); Platelet Estimate Slight Decrease; Tear Drop Cells 1+; Total Cells Counted 100
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
[2022-07-31 14:30] LABS: POC Glucose,Bedside 112 (70-110)
--- NOTE | 2022-07-31 15:58 | PC.NURSE ---
pt has been sleeping the majority of the shift. She is lethargic and confused. r sided weakness is unchanged, although she is bilaterally weak. f/c draining @ bedside. pt will be put on bipap @hs. turned and repositioned
--- NOTE | 2022-07-31 16:31 | PC.NURSE ---
spoke with MD regarding pt fentanyl dosage. instructed to remove the 12mcg patch and leave the 50mcg in place to be changed tomorrow per regular schedule. This nurse went in to room to remove the 12mcg with Sharri El RN as witness. There was no 50mcg patch in place when i went to remove. I notified MD. He wants case management contacted for further action. notified Furniture Duster
[2022-07-31 16:38] LABS: Potassium 5.9 mmoL/L (3.5-5.1)
[2022-07-31 16:52] LABS: POC Glucose,Bedside 113 (70-110)
[2022-07-31 21:23] LABS: POC Glucose,Bedside 136 (70-110)
--- NOTE | 2022-07-31 21:53 | PC.NURSE ---
Per RT pt refused to wear bipap because it is a full mask, and we do not have nasal masks available. Pt educated on bipap and risks of not using. Pt verbalized understanding.
[2022-08-01] VITALS (10 sets, daily range): BP systolic 108–130; BP diastolic 46–80; PULSE 69–88; RESP 15–20; TEMP 36.7–37.6; O2SAT 93–98; BMI 38.5
--- NOTE | 2022-08-01 04:04 | PC.NURSE ---
Pt alert and oriented x 3. At beginning of my shift pt c/o of nausea, but unable to have zofran at this time. Contacted provider - new orders received. Medicated per MAR with favorable results. Pt has slept majority of my shift. At bedtime RT went to put pt on bipap and she refused because it was not the nasal mask. Pt continues on 2.5 L NC with O2 sats >90%. Lung sounds diminished w/ expiratory wheezes. BS active x 4. Pts has expressed that he does not believe pain medication is related to pts confusion/fatigue. Explained to side effects of pain medication and symptoms of present illness. Told pts I would pass along his concerns in report and he could also discuss with MD in AM. Bed alarm on for safety, call light in reach.
[2022-08-01 06:10] LABS: POC Glucose,Bedside 156 (70-110)
[2022-08-01 09:21] LABS: Basophils % 0.3 % (0.1-2.0); Eosinophils % 0.2 % (0.1-12.0); Hematocrit 30.6 % (37.0-47.0); Lymphocytes # 0.5 K/mm3 (0.7-4.5); Mean Corpuscular HGB Conc 29.5 g/dL (31.8-35.4); Mean Corpuscular Volume 101.6 fl (81-99); Mean Platelet Volume 8.9 fl (7.4-10.4); Monocytes # 0.3 K/mm3 (0.1-1.0); Monocytes % 6.4 % (1.7-9.3); Neutrophils # 3.1 K/mm3 (1.8-7.8); Neutrophils % 80.2 % (37.0-80.0); Platelet Count 142 K/mm3 (142-424); Red Blood Count 3.01 M/mm3 (4.20-5.40); Red Cell Distribution Width 16.9 % (11.5-17.5); White Blood Count 3.9 K/mm3 (4.8-10.8)
[2022-08-01 09:32] LABS: Chloride 103 mmol/L (98-107); Potassium 4.8 mmoL/L (3.5-5.1); Sodium 142 mmol/L (136-145)
--- NOTE | 2022-08-01 09:32 | HMH.SLDYSPHA ---
Speech & Language Evaluation Speech/Language Dysphagia Evaluation Start: 08/01/22 09:02 Freq: ONCE Status: Active Protocol: Document 08/01/22 09:02 BERTHA (Rec: 08/01/22 09:32 BERTHA [id number]) Dysphagia Assess/Goals/Plan Assessment Date of Evaluation: 08/01/22 Evaluation Type Initial Certification Assessment/Problems Pt assessed per MD order for swallowing concerns Does Patient Qualify for Service Yes Qualify/Failure Comment Pt qualifies for skilled speech therapy services to follow up and do re-evaluation and making decision of completing MBSS Recommendations PHYSICIAN CERTIFICATION: The specified therapy services are required, authorized, and reviewed every 30 days. Pt will be seen # times/week 1 for # weeks 4 Diet Recommendations Normal Liquid Type Recommendations Normal/Thin SL Swallow Guidelines High aspiration risk,Eat at slow rate Crush Meds Crush all meds Dysphagia Swallow Precautions/Strategies Sitting Upright (90 deg),Tilt Head Right,No Straw,Small Bites and Sips,Alternate Liquids/Solids Plan Anticipate reaching STG in # weeks 1 Anticipate reaching LTG in # weeks 4 Pt/Guardian verbally ack understanding Yes of dx/prognosis/goals G -code Required No STG-Other Comment/Non-Specific Pt will complete a follow-up CSE and potential MBSS to further evaluate swallow. Acid Bleacher Goals Diet regular with Liquids Thin Liquids Education Instructions provided Provided education on assessment results, need for MBSS, aspiration risks to nurse, pt, and all of which expressed understanding. SALES ENGAGEMENT MANAGER will follow up tomorrow to discuss decision regarding MBSS. Pt/Caregiver able to recall information Able to recall/restate Speech & Language HPI History Present Illness Description of Patient Problem Patient is a 76-year-old female with past medical history of obstructive sleep apnea on nocturnal CPAP, prior CVA with residual right-sided weakness, wheelchair-bound, hypertension, atrial fibrillation st
[2022-08-01 09:35] LABS: Alanine Aminotransferase 21 U/L (12-78); Albumin Level 3.1 g/dl (3.5-5.0); Albumin/Globulin Ratio 1.2 (1.1-1.8); Alkaline Phosphatase 126 U/L (38-126); Anion Gap 11.8 mEq/L (5-15); Aspartate Amino Transferase 42 U/L (14-36); Bilirubin,Total 0.4 mg/dl (0.2-1.3); Blood Urea Nitrogen 50 mg/dl (7-17); Calcium 7.6 mg/dl (8.4-10.2); Carbon Dioxide 32 mmol/L (22.0-30.0); Creatinine Clearance Estimated 42 mL/min (50-200); Estimated Glomerular Filt Rate 26 ml/min (>60); GFR (African American) 31 ML/MIN (>60); Globulin 2.5 g/dL (1.3-3.2); Glucose 169 mg/dl (74-100); Total Protein,Serum 5.6 g/dl (6.3-8.2)
--- NOTE | 2022-08-01 09:39 | PC.NURSE ---
pt refused bedside swallow evaluation per speech therapist
--- NOTE | 2022-08-01 09:58 | PC.NURSE ---
educated pt and @ bedside on aspiration precautions regarding refusal of swallowing eval. MD notified. Pt requests to be a DNR. witnessed by VIVIEN avendano RN.
[2022-08-01 10:35] LABS: Procalcitonin 0.213 ng/mL (0.0-2.0)
[2022-08-01 11:31] LABS: POC Glucose,Bedside 205 (70-110)
[2022-08-01 11:36] LABS: Hemoglobin A1C 7.4 % (4.0-6.0)
--- NOTE | 2022-08-01 12:03 | EXP.PN ---
Subjective *Date: 08/01/22 *Time: 12:03 Interval history: Date of service August 01, 2022 The patient is sitting up in her bedside chair and reports no acute events overnight. She was able to take a shower this morning. She is accompanied by her who is in the room as well. Peg ROTH reports that she remains afebrile with stable vital signs and saturating appropriately on her usual home oxygen requirement. She reports that she is interacting with staff and no further mental status concerns are noted. Her morning labs have been reviewed and discussed including a normal white blood cell count, stable electrolytes and improving creatinine. Her urine culture is negative. She is tolerating her IV antibiotic with no adverse events. Exam Data for Last 24 hours Vital signs and Labs for Last 24 Hours: Temp Pulse Resp BP Pulse Ox FiO2 98.4 F 70 16 130/47 L 95 28 08/01/22 11:54 08/01/22 11:54 08/01/22 11:54 08/01/22 11:54 08/01/22 11:54 07/31/22 18:51 Laboratory Results - last 24 hr 07/31/22 14:14: POC Glucose 112 H 07/31/22 16:15: Potassium 5.9 H 07/31/22 16:45: POC Glucose 113 H 07/31/22 21:03: POC Glucose 136 H 08/01/22 06:01: POC Glucose 156 H 08/01/22 09:05: WBC 3.9 L D, RBC 3.01 L, Hgb 9.0 L, Hct 30.6 L, MCV 101.6 H, MCH 30.0, MCHC 29.5 L, RDW 16.9, Plt Count 142, MPV 8.9, Neut % (Auto) 80.2 H, Lymph % (Auto) 13.0, [place] % (Auto) 6.4, Eos % (Auto) 0.2, Baso % (Auto) 0.3, Neut # (Auto) 3.1, Lymph # (Auto) 0.5 L, [place] # (Auto) 0.3, Eos # (Auto) 0.0, Baso # (Auto) 0.0 08/01/22 09:05: Sodium 142, Potassium 4.8, Chloride 103, Carbon Dioxide 32 H, Anion Gap 11.8, BUN 50 H, Creatinine 1.90 H, Estimated Creat Clear 42, Estimated GFR 26 L, Est GFR ( Amer) 31 L, Glucose 169 H D, Calcium 7.6 L, Total Bilirubin 0.4, AST 42 H, ALT 21, Alkaline Phosphatase 126, Total Protein 5.6 L, Albumin 3.1 L, Globulin 2.5, Albumin/Globulin Ratio 1.2 08/01/22 09:05: Procalcitonin 0.213 08/01/22 09:05: Hemoglobin A1c 7.4 H 08/01/22 11:23: POC Glucose 205 H I & O for Last 24 hours: Intake & Output 07/29/22 07/30/22 07/31/22 08/01/22 23:59 23:59 23:59 23:59 Intake Total 533 / 533 1231 / 1231 Output Total 0 / 0 1000 / 1000 700 / 700 Balance 0 / 233 -467 / -467 531 / 531 Weight 83.915 kg 105.68 kg 104.95 kg Microbiology Reports for the Last 24 Hours: Microbiology 07/30/22 23:00 Urine,Clean Catch Urine Culture - Final Multiple organisms, suggests contamination. Constitutional Constitutional: no acute distress, morbidly obese, chronically ill appearing and cooperative *Routine HEENT Exam Head: Present normocephalic and atraumatic Eye: Present EOMI and PERRL ENT: Present mucous membranes moist *Routine Neck Exam Neck: Present supple and trachea midline; Absent full ROM, JVD or lymphadenopathy *Routine Respiratory Exam Respiratory: Present rhonchi, wheezes, normal respiratory effort and symmetric chest movement; Absent respiratory distress *Routine Cardiovascular Exam Cardiovascular: Present RRR, Normal S1 and Normal S2; Absent murmur *Routine Abdominal Exam Abdominal: Present soft and normoactive bowel sounds; Absent tenderness *Routine Extremities Exam Extremities: Present normal capillary refill; Absent edema or pallor *Routine Skin Exam Skin: Present intact, dry and warm; Absent rash *Routine Neurological Exam Neurological: Present alert, oriented X3, motor deficit (Right weak), moving all extremities, vision grossly intact, hearing grossly intact and normal speech Routine Psychiatric Exam Psychiatric: Present normal affect, normal thought process and cooperative Assessment and Plan *Assessment and plan (1) Encephalopathy acute: Status: Acute Category: Medical Code(s): G93.40 - Encephalopathy, unspecified (2) Influenza A: Status: Acute Category: Medical Code(s): J10.1 - Influenza due to other identified influenza virus with other respirat
[2022-08-01 18:19] LABS: POC Glucose,Bedside 193 (70-110)
[2022-08-01 22:05] LABS: POC Glucose,Bedside 247 (70-110)
[2022-08-02 04:00] VITALS: BP 121/67; PULSE 70; RESP 18; TEMP 36.9; O2SAT 97
[2022-08-02 04:58] VITALS: BMI 38.6
--- NOTE | 2022-08-02 06:04 | PC.NURSE ---
No acute changes since previous assessment. Pt has been more alert this shift, answering questions appropriately. Pt states she does feel some better. Pts reports one episode of brief confusion this shift. Pt has rested well. Medicated per MAR x 1 for pain. Pt is voiding per holm cath with adequate urine output. IV infusing per order, call light in reach. Bed alarm on for safety. at bedside. No needs voiced at this time.
[2022-08-02 06:16] LABS: Eosinophils % 0.2 % (0.1-12.0); Lymphocytes # 0.5 K/mm3 (0.7-4.5); Neutrophils # 1.9 K/mm3 (1.8-7.8); White Blood Count 2.6 K/mm3 (4.8-10.8)
[2022-08-02 06:19] LABS: Basophils % 0.4 % (0.1-2.0); Hematocrit 26.3 % (37.0-47.0); Hemoglobin 8.1 g/dL (12.2-16.2); Lymphocytes % 19.7 % (10-50); Mean Corpuscular HGB Conc 30.7 g/dL (31.8-35.4); Mean Corpuscular Hemoglobin 30.6 pg (27.0-31.2); Mean Corpuscular Volume 99.5 fl (81-99); Mean Platelet Volume 9.1 fl (7.4-10.4); Monocytes # 0.1 K/mm3 (0.1-1.0); Monocytes % 5.5 % (1.7-9.3); Neutrophils % 74.2 % (37.0-80.0); Platelet Count 134 K/mm3 (142-424); Red Blood Count 2.64 M/mm3 (4.20-5.40); Red Cell Distribution Width 16.8 % (11.5-17.5)
[2022-08-02 06:24] VITALS: PULSE 70; PULSE 76; O2SAT 96
[2022-08-02 06:34] LABS: POC Glucose,Bedside 149 (70-110)
--- NOTE | 2022-08-02 06:53 | PC.NURSE ---
Medicated per MAR for pain. No other needs voiced at this time. Call light in reach.
[2022-08-02 06:54] LABS: Chloride 106 mmol/L (98-107); Potassium 5.1 mmoL/L (3.5-5.1); Sodium 143 mmol/L (136-145)
[2022-08-02 06:57] LABS: Anion Gap 12.1 mEq/L (5-15); Blood Urea Nitrogen 52 mg/dl (7-17); Calcium 7.5 mg/dl (8.4-10.2); Carbon Dioxide 30 mmol/L (22.0-30.0); Creatinine Clearance Estimated 50 mL/min (50-200); Estimated Glomerular Filt Rate 31 ml/min (>60); GFR (African American) 38 ML/MIN (>60); Glucose 124 mg/dl (74-100)
[2022-08-02 08:00] VITALS: BP 128/66; PULSE 72; RESP 21; TEMP 37.2; O2SAT 96
[2022-08-02 10:09] VITALS: PULSE 77; RESP 18
--- NOTE | 2022-08-02 10:44 | HMH.PTEV ---
Physical Therapy Evaluation Rehab PT IP Evaluation Start: 08/02/22 10:07 Freq: ONCE Status: Active Protocol: Document 08/02/22 10:39 [email or web address] (Rec: 08/02/22 10:44 STEPHAN [id number]) Subjective/History History History This patient is a 76-year-old female who presented to the emergency department with complaints of having progressive, intermittent movement of both of her upper and lower extremities. This patient reportedly had a ground-level fall onto her right knee earlier this morning as well. Patient and both advised that she did not hit her head. Subjective Subjective Pt reports no significant complaints this a.m. - Rehab PT IP Eval Objective Appearance Patient Behavior Appropriate,Cooperative Patient Orientation Place,Name,Birthday,Year, Situation Difficulty following instructions none Speech Pattern Clear,Appropriate Ambulation Patient Able to Ambulate Yes Ambulation Observation IP General Gait Pattern Observation Shuffling Step Ambulation Distance (feet) 2 Ambulation Assistive Device None Ambulation Ability Contact Guard/Hand Hold Balance Ability to Arise Able, uses arms to help Sitting Balance Steady, safe Standing Balance Unsteady Dynamic Sitting Balance Ability Good Dynamic Standing Balance Ability Poor Transfers Chair Transfer Ability Supervision/Stand by Sit to Stand Bed Transfer Ability Contact Guard/Hand Hold Sit to Stand Chair Transfer Ability Contact Guard/Hand Hold Rehab PT IP prob,goals,plan Problems Date of Evaluation: 08/02/22 PT IP Problems Bed Mobility,Transfers,Gait, Balance,Self care,Safety Rehab Potential Rehab Potential Innapropriate for Skilled Therapy Equipment Needs Assistive Devices Wheelchair Discharge Goals Sit to Stand Chair Transfer Ability Contact Guard/Hand Hold Ambulation Assistive Device None,Rolling Walker Ambulation Distance (feet) 2 Discharge Plan PT Discharge Plan Pt is at baseline level of function at this time - no skilled thherapy needs at this time - pt to be dc'd home once medically stable G -code Required
--- NOTE | 2022-08-02 10:48 | EXP.DC.SUM ---
General Admission date:: 07/30/22 Discharge date: 08/02/22 HPI HPI HPI: July 30, 2022 history and physical. I saw and examined this patient in the emergency department. On examination of this patient she appears to be in no acute distress and nontoxic in nature. This patient is a 76-year-old female who presented to the emergency department with complaints of having progressive, intermittent movement of both of her upper and lower extremities. This patient reportedly had a ground-level fall onto her right knee earlier this morning as well. Patient and both advised that she did not hit her head. This patient was seen and evaluated in the emergency department and admitted to the medical surgical floor for observation. This patient has multiple comorbid diagnoses and takes multiple medications up to and including fentanyl and oxycodone as well as a benzodiazepine. While in the emergency department it was discovered the patient did have a low blood sugar which was treated with standard D50 as well as 500 cc of fluids. Radiological studies did reveal bilateral diffuse opacities that have the possibility for pneumonia. White blood cell count is within normal range, hemoglobin and hematocrit is slightly decreased at 10.1 and 32. Chemistry panel did reveal kidney injury with a BUN of 49 and a creatinine of 2.10 as well as hypoglycemic episode of 32. After the dose of D50 for the content glucose was 91. CK Level is 151. C-reactive protein is 34.7 and the patient is positive for flu A. We are pending a urine drug screen as well as urinalysis. We will continue to follow plan of clinical treatment. Hospital Course Hospital Course Hospital Course: The patient was admitted to the medical floor with blood and urine cultures acquired. She was started on IV antibiotic therapy. It was recognized from her Abraham report that she was receiving 240 morphine milligram equivalents for chronic pain syndrome. Current opioid prescribing guidelines recommend 50 MME's. When nursing staff did their survey and assessment they identify that the patient did not have a 50 mcg patch on her body as prescribed and her 12.5 mg patch was partially adhered. Her ED urine drug study identified no opioids but positive for benzodiazepines. Her altered mental status/toxic encephalopathy was attributed to her chronic narcotic therapy and sudden changes. Within 10 hours of her admission her altered mental status improved. At 33 hours her altered mental status was resolved and her decision-making was intact. She invited multiple staff members to be present in her room to review her goals of care and identified that she wanted to be declared DNR. Her influenza A was treated with Tamiflu dosed for her current GFR. There was concerns for aspiration pneumonia and she was treated with IV cefepime and then transition to oral therapy. Her blood and urine cultures identified no growth to date. Her laboratory studies and inflammatory markers were trended and identified improvement. She was maintained on PPI therapy for her chronic anemia. Her IV fluids were transitioned to oral resuscitation. Her blood sugars were controlled with basal and sliding scale insulin. A PT evaluation was requested prior to discharge. Baseline activity was identified and noted. We have recommended that she have a discussion with her opioid prescribing provider concerning weaning her medications. We have prescribed Narcan on discharge. She will be sent home on a short course of antibiotic therapy to complete a course for aspiration pneumonia. We recommend a follow-up appointment with her PCP in 1 week. Exam Data for Last 24 hours Vital signs and Labs for Last 24 Hours: Temp Pulse Resp BP Pulse Ox FiO2 98.9 F 77 18 128/66 96 28 08/02/22 08:00 08/02/22 10:09 08/02/22 10:09 08/02/22 08:00 08/02/22 08:00 08/01/22 18:48 Laboratory Results - last 24 hr 08/01/22 09:05: Hemoglobin
--- NOTE | 2022-08-02 11:18 | SW/DCPLANNER ---
I received a referral on this patient regarding prescribed opiate home medications and UDS is negative for opiates. I did follow up with patient's prescribing MD (Dr Medel) office regarding situation. Patient will discharge home today and follow up with Dr Medel as outpatient.
--- NOTE | 2022-08-03 13:47 | CARE MANAGER ---
Attempted post-discharge phone interview, mailbox is full at this time and not accepting calls.
== END 2022-08-02 13:05 | disposition home or self-care (01) ==
LOC: ER 16:10 → 2ND 20:25
PROVIDERS: Nurse Practitioner Family; Admitting Provider Family Medicine; Emergency Provider Emergency Medicine; PCP Internal Medicine; Visit Provider Family Medicine
DX: J10.08 Influenza due to other identified influenza virus with other specified pneumonia (principal); J18.9 Pneumonia, unspecified organism; J10.81 Influenza due to other identified influenza virus with encephalopathy; I50.31 Acute diastolic (congestive) heart failure; Z79.891 Long term (current) use of opiate analgesic; G93.40 Encephalopathy, unspecified; E11.9 Type 2 diabetes mellitus without complications; Z79.4 Long term (current) use of insulin; Z79.899 Other long term (current) drug therapy; Z95.0 Presence of cardiac pacemaker; I69.351 Hemiplegia and hemiparesis following cerebral infarction affecting right dominant side; I48.91 Unspecified atrial fibrillation; Z99.3 Dependence on wheelchair; W01.0XXA Fall on same level from slipping, tripping and stumbling without subsequent striking against object, initial encounter; I13.0 Hypertensive heart and chronic kidney disease with heart failure and stage 1 through stage 4 chronic kidney disease, or unspecified chronic kidney disease; Z79.01 Long term (current) use of anticoagulants; Z20.822 Contact with and (suspected) exposure to COVID-19
CPT/HCPCS: G0378; 36415; 70450; 70496; 70498; 71045; 73560; 80048; 80053; 80305; 81001; 82550; 82803; 82962; 83036; 83605; 83735; 83880; 84132; 84145; 85007; 85025; 86140; 87040; 87086; 92610; 94640; 94760; 97162; 99285; C9803; J0290; J2405; Q9967; U0003; U0005

== ENCOUNTER 2022-08-06 04:05 | Inpatient (IN) | payer MEDICARE, SELFPAY ==
[2022-08-06] VITALS (18 sets, daily range): BP systolic 115–183; BP diastolic 66–131; PULSE 66–81; RESP 16–20; TEMP 36.7–37.4; O2SAT 91–100; BMI 30.4; BMI 38.6; BMI 38.5
--- NOTE | 2022-08-06 04:09 | ECG_ITS ---
APPROVED REPORT Exam: Resting ECG HR:69 bpm ECG Measurements Heart Rate 69 AXES QRSd 162 QRS -71 QT 472 T 120 QTc 492 Conclusion ELECTRONIC VENTRICULAR PACEMAKER ABNORMAL RHYTHM ECG UNCONFIRMED REPORT Electronically signed by : Jimy Conley MD 08/07/2022 08:42:59
--- NOTE | 2022-08-06 04:12 | XR_ITS ---
PROCEDURE INFORMATION: Exam: XR Chest Exam date and time: 08/06/2022 4:38 AM Age: 76 years old Clinical indication: Condition or disease; Other: Hypoglycemia; Prior surgery TECHNIQUE: Imaging protocol: Radiologic exam of the chest. Views: 1 view. COMPARISON: CR XR CHEST PORTABLE 07/30/2022 5:42 PM FINDINGS: Lungs: Increasing consolidation at the lung bases. Pleural spaces: Unremarkable. No pleural effusion. No pneumothorax. Heart/Mediastinum: Stable cardiomegaly. Vasculature: The aorta is tortuous. Similar mediastinal widening. Bones/joints: Unremarkable. Other findings: Three portable AP images are submitted, the 1st image demonstrates incorrect side marker, the next 2 images demonstrate correct side markera. IMPRESSION: Increasing bibasilar consolidation concerning for atelectasis, edema or pneumonia, recommend following until clear.
[2022-08-06 04:31] LABS: Basophils % 0.4 % (0.1-2.0); Eosinophils # 0.1 K/mm3 (0.0-0.4); Eosinophils % 1.4 % (0.1-12.0); Hematocrit 32.6 % (37.0-47.0); Hemoglobin 10.1 g/dL (12.2-16.2); Lymphocytes % 11.2 % (10-50); Mean Corpuscular Hemoglobin 31.3 pg (27.0-31.2); Mean Corpuscular Volume 100.9 fl (81-99); Mean Platelet Volume 9.9 fl (7.4-10.4); Monocytes # 0.3 K/mm3 (0.1-1.0); Monocytes % 2.8 % (1.7-9.3); Neutrophils # 7.5 K/mm3 (1.8-7.8); Neutrophils % 84.1 % (37.0-80.0); Platelet Count 153 K/mm3 (142-424); Red Blood Count 3.23 M/mm3 (4.20-5.40); Red Cell Distribution Width 17.2 % (11.5-17.5); White Blood Count 8.9 K/mm3 (4.8-10.8)
--- NOTE | 2022-08-06 04:33 | HMH.EDGENADL ---
Discharge Plan Disposition Chief Complaint: Weakness Discharge ED Provider: Kamla Bonilla Adult HPI General Chief complaint: Weakness Stated complaint: Hypoglycemia Time Seen by Provider: 08/06/22 04:25 Mode of Arrival: Ambulatory Source of Information: Patient Limitations: No Limitations History of Present Illness HPI narrative: Mrs. Espinosa is a 76-year-old female past medical history for T2DM insulin-dependent, obstructive sleep apnea on nocturnal CPAP, prior CVA with residual right-sided weakness, wheelchair-bound, hypertension, atrial fibrillation status post pacemaker placement on Eliquis, Churg-Magen vasculit presenting to the emergency department for confusion and hypoglycemia. Fentanyl patch found on patient. Patient reports she was recently discharged from the hospital a week prior secondary to flu. Patient reports over the last few days since being discharged she continues to have periods of hypoglycemia. Today patient became acutely altered checked her sugar which was 30 at that time. Patient was given a Coca-[employer] and EMS was called. EMS arrived to scene and patient had a glucose of 89. Patient was transferred to [facility] for further evaluation. Patient reports she did not take any insulin today. Patient reports she continues to have a nonproductive cough but denies any fevers or other infectious-like symptoms. MD complaint: confusion, hypoglycemia Related Data Home Medications Medication Instructions Recorded Confirmed atorvastatin 40 mg tablet 40 mg PO HS Cholesterol 01/06/18 07/31/22 bisoprolol fumarate 10 mg tablet 10 mg PO DAILY BLOOD PRESSURE 01/06/18 07/31/22 melatonin 10 mg capsule 10 mg PO HS sleep 01/06/18 07/31/22 apixaban 5 mg tablet 5 mg PO BID Blood thinner 07/23/19 07/31/22 insulin aspart U-100 100 unit/mL 18 unit SQ QID Diabetes 11/29/19 07/31/22 subcutaneous solution (Novolog U-100 Insulin aspart) oxycodone 10 mg tablet 10 mg PO Q4H PRN pain 11/29/19 07/31/22 hydroxychloroquine 200 mg tablet 200 mg PO BID Rheumatoid arthritis 03/17/20 07/31/22 ipratropium 0.5 mg-albuterol 3 mg 3 ml inhalation QIDRT PRN SOA 03/19/20 07/31/22 (2.5 mg base)/3 mL nebulization soln fentanyl 12 mcg/hr transdermal 1 patch transdermal Q72H Pain 01/08/21 07/31/22 patch acetaminophen 500 mg tablet 500 mg PO BID PRN Pain 09/02/21 07/31/22 furosemide 40 mg tablet 40 mg PO BIDP PRN Edema 09/02/21 07/31/22 gabapentin 800 mg tablet 800 mg PO QID NEUROPATHY 09/02/21 07/31/22 insulin glargine 100 unit/mL 70 units SQ HS SUGAR 09/02/21 07/31/22 subcutaneous solution escitalopram oxalate 5 mg tablet 5 mg PO DAILY Anxiety 12/28/21 07/31/22 (Lexapro) alprazolam 0.5 mg tablet 0.5 mg PO TIDP PRN Anxiety 07/31/22 07/31/22 pantoprazole 40 mg tablet,delayed 40 mg PO DAILY GERD 07/31/22 07/31/22 release Previous Rx's Medication Instructions Recorded amoxicillin 500 mg-potassium 1 tab PO Q8H #21 tabs 08/02/22 clavulanate 125 mg tablet (Augmentin) docusate sodium 100 mg capsule 100 mg PO DAILY #30 caps 08/02/22 empagliflozin 10 mg tablet 10 mg PO DAILY #30 tabs 08/02/22 (Jardiance) naloxone 4 mg/actuation nasal 4 mg intranasal Q2M #2 ea 08/02/22 spray (Narcan) Allergies Allergy/AdvReac Type Severity Reaction Status Date / Time amitriptyline [From Elavil] Allergy Severe [id number]/THROAT; Verified 06/01/22 10:53 SEIZURES chlorpromazine Allergy Severe SEIZURES Verified 06/01/22 10:53 [From Thorazine] dichloralphenazone Allergy Severe S-SWELLS-OR Verified 06/01/22 10:53 [From Midrin] AL/THROAT isometheptene [From Midrin] Allergy Severe S-SWELLS-OR Verified 06/01/22 10:53 AL/THROAT prochlorperazine Allergy Severe SEIZURES Verified 06/01/22 10:53 [From Compazine] adhesive tape Allergy Intermediate I-RASH Verified 06/01/22 10:53 aspirin Allergy Intermediate COLD Verified 06/01/22 10:53 SWEATS , N/V cyclobenzaprine Allergy Unknown Unknown Verified 08
[2022-08-06 04:43] LABS: Acetone, Serum (Rapid) None Detected (None Detect)
[2022-08-06 04:58] LABS: Influenza A, PCR Not Detected (NotDetected); Influenza B, PCR Not Detected (NotDetected)
[2022-08-06 05:02] LABS: Appearance,Urine CLEAR (Clear); Bilirubin,Urine Negative (Negative); Blood, Urine Negative (Negative); Color,Urine YELLOW (Yellow); Glucose,Urine (UA) TRACE (Negative); Ketones,Urine Negative (Negative); Leukocyte Esterase,Urine TRACE (Negative); Microscopic, Urine URINE MICROSCOPIC (MICROSCOPIC); Nitrate,Urine Negative (Negative); Protein,Urine 2+ (Negative); Specific Gravity, Urine 1.025 (1.005-1.030)
[2022-08-06 05:24] LABS: Coronavirus 19, PCR Detected (NotDetected)
[2022-08-06 05:36] LABS: Amorphous Sediment,Urine 1+ /lpf; Bacteria,Urine 1+ /lpf; Mucus,Urine 1+ /lpf; Yeast,Urine 2+ /lpf
[2022-08-06 05:42] LABS: Alanine Aminotransferase 23 U/L (12-78); Albumin Level 3.8 g/dl (3.5-5.0); Albumin/Globulin Ratio 1.5 (1.1-1.8); Alkaline Phosphatase 116 U/L (38-126); Anion Gap 14.5 mEq/L (5-15); Aspartate Amino Transferase 44 U/L (14-36); Bilirubin,Total 0.8 mg/dl (0.2-1.3); Blood Urea Nitrogen 28 mg/dl (7-17); Calcium 8.3 mg/dl (8.4-10.2); Carbon Dioxide 30 mmol/L (22.0-30.0); Chloride 105 mmol/L (98-107); Creatinine Clearance Estimated 58 mL/min (50-200); Estimated Glomerular Filt Rate 48 ml/min (>60); GFR (African American) 59 ML/MIN (>60); Globulin 2.6 g/dL (1.3-3.2); Glucose 80 mg/dl (74-100); Potassium 4.5 mmoL/L (3.5-5.1); Sodium 145 mmol/L (136-145); Total Protein,Serum 6.4 g/dl (6.3-8.2)
[2022-08-06 06:13] LABS: Thyroid Stimulating Hormone 2.03 uIU/mL (0.465-4.68)
[2022-08-06 06:21] LABS: POC Glucose,Bedside 100 (70-110)
[2022-08-06 06:21] LABS: POC Glucose,Bedside 76 (70-110)
[2022-08-06 06:21] LABS: POC Glucose,Bedside 145 (70-110)
[2022-08-06 06:21] LABS: POC Glucose,Bedside 152 (70-110)
[2022-08-06 06:34] LABS: ABG HCO3 28.9 mmhg (22.0-26.0); ABG Oxygen Saturation 98 % (90-100); ABG PCO2 48.3 mmhg (35.0-45.0); ABG PO2 111.5 mmhg (80-100); ABG TCO2 30.4 mmhg (23-27)
[2022-08-06 06:35] LABS: Allen's Test Acceptable; Oxygen 2L %; Source Right Radial
--- NOTE | 2022-08-06 07:35 | EXP.HP ---
History of Present Illness *Admission Date: 08/06/22 *Reason for visit:: hypoglycemia, altered mental status *History of present illness: Ms. Espinosa is a 76-year-old female who he presented to the ER today with altered mental status, low blood sugar at home, and hypoxia on arrival. On examination of this patient she appears to be in no acute distress and nontoxic in nature.? She reports that she has been having trouble with her blood pressure continuing to drop in light of taking her medications as prescribed. Was somnolent on arrival with oxygen saturation reportedly at 83 on room air. Fentanyl patch was in place on arrival to the ER. She reports only taking her oral pain medication (oxycodone) 1-2 times a day. After taking a drink of sugary beverage at home this morning her blood sugar improved but is continued to drop/remain low during her time in the ER. Work-up initiated in the ER consisting of imaging and labs showing concern for hypoglycemia and oxygen requirement. Has chronic hypercarbic respiratory failure that is compensated with normal pH. She additionally is noted to have COVID. Complaining of significant weakness and unable to go home. Admitted to medicine for management of COVID, hypoglycemia, and polypharmacy. After arriving to the floor, she appears more alert and states she is less confused. She is asking for pain medication as she hurts from her chronic rheumatoid arthritis and neuropathy. Blood sugar improves when she drinks sugary beverages. Holding on diabetes treatment at this time. Patient afebrile and hemodynamically stable. No family at bedside on assessment. Of note, UDS obtained showing positive for benzos. Negative for opiates. While fentanyl may not show up on UDS, her oxycodone should. [facility] Medical History Chronic narcotic use Chronic pain disorder Degenerative joint disease (DJD) of lumbar spine Diabetes Diabetic neuropathy GERD (gastroesophageal reflux disease) Hypertension Lumbosacral radiculopathy due to degenerative joint disease of spine Obese Polypharmacy Severe sleep apnea Family History (Updated 08/06/22 @ 16:26 by Shun Oconnell MD) Diabetes Social History Smoking Status: Former smoker second hand exposure: No alcohol intake: never substance use type: denies use current occupational status: disabled Travel in the last 8 weeks: None household members: spouse and other housing: other number of children: 3 current occupational exposures/hazards: No caffeine: Yes Review of Systems Review of Systems Review of systems (narrative): 14 point review of systems performed, pertinent positives and negatives as per HPI Meds Home Medications and Allergies Home Medications Medication Instructions Recorded Confirmed Type atorvastatin 40 mg tablet 40 mg PO HS Cholesterol 01/06/18 08/06/22 History bisoprolol fumarate 10 mg tablet 10 mg PO DAILY Hypertension 01/06/18 08/06/22 History melatonin 10 mg capsule 10 mg PO HS sleep 01/06/18 08/06/22 History apixaban 5 mg tablet 5 mg PO BID AFIB 07/23/19 08/06/22 History insulin aspart U-100 100 unit/mL 18 unit SQ ACHS Diabetes 11/29/19 08/06/22 History subcutaneous solution (Novolog U-100 Insulin aspart) oxycodone 10 mg tablet 10 mg PO Q4H PRN pain 11/29/19 08/06/22 History hydroxychloroquine 200 mg tablet 200 mg PO BID Rheumatoid arthritis 03/17/20 08/06/22 History ipratropium 0.5 mg-albuterol 3 mg 3 ml inhalation QIDP PRN Shortness 03/19/20 08/06/22 History (2.5 mg base)/3 mL nebulization Of Breath Or Wheezing soln fentanyl 12 mcg/hr transdermal 1 patch transdermal Q72H Pain 01/08/21 08/06/22 History patch acetaminophen 500 mg tablet 500 mg PO BIDP PRN Pain 09/02/21 08/06/22 History furosemide 40 mg tablet 40 mg PO BIDP PRN Edema 09/02/21 08/06/22 History gabapentin 800 mg tablet 800 mg PO QID NEUROPATHY 1
--- NOTE | 2022-08-06 07:46 | PC.NURSE ---
contacted lab to draw blood cultures and lactic acid prior to blood culture administration
--- NOTE | 2022-08-06 07:57 | PC.NURSE ---
LAB AT BEDSIDE TO COLLECT LACTIC AND BLOOD CULTURES
[2022-08-06 08:05] LABS: Hemoglobin A1C 7.3 % (4.0-6.0)
--- NOTE | 2022-08-06 08:13 | EXP.PHA.CONS ---
Pharmacy Consult Date: 08/06/22 Time: 08:14 Referring provider: DR RENTERIA Reason for Consult:: VANCOMYCIN DOSING CONSULT Allergies Allergy/AdvReac Type Severity Reaction Status Date / Time amitriptyline [From Elavil] Allergy Severe E-[id number]/THROAT; Verified 06/01/22 10:53 SEIZURES chlorpromazine Allergy Severe SEIZURES Verified 06/01/22 10:53 [From Thorazine] dichloralphenazone Allergy Severe S-SWELLS-OR Verified 06/01/22 10:53 [From Midrin] AL/THROAT isometheptene [From Midrin] Allergy Severe S-SWELLS-OR Verified 06/01/22 10:53 AL/THROAT prochlorperazine Allergy Severe SEIZURES Verified 06/01/22 10:53 [From Compazine] adhesive tape Allergy Intermediate I-RASH Verified 06/01/22 10:53 aspirin Allergy Intermediate COLD Verified 06/01/22 10:53 SWEATS , N/V cyclobenzaprine Allergy Unknown Unknown Verified 06/01/22 10:53 [From FLEXERIL] allergy reaction duloxetine [DULOXETINE] Allergy Unknown Unknown Verified 06/01/22 10:53 allergy reaction Iodinated Contrast Media Allergy Unknown Unknown Verified 06/01/22 10:53 [IODINATED CONTRAST MEDIA - allergy ORAL AND] reaction Sulfa (Sulfonamide Allergy Unknown CONTRAINDICATED Verified 06/01/22 10:53 Antibiotics) WITH ASTHMA trimethoprim [TRIMETHOPRIM] Allergy Unknown Unknown Verified 06/01/22 10:53 allergy reaction leflunomide Allergy rash, Verified 06/01/22 10:53 redness Macrolide Antibiotics Allergy rash, Verified 06/01/22 10:53 redness Beta-Blockers AdvReac Severe MAKES Verified 06/01/22 10:53 (Beta-Adrenergic Bloc ASTHMA WORSE caffeine [From Cafergot] AdvReac Mild NA-NAUSEA Verified 06/01/22 10:53 ergotamine [From Cafergot] AdvReac Mild NA-NAUSEA Verified 06/01/22 10:53 pregabalin [From Lyrica] AdvReac Mild TOO Verified 06/01/22 10:53 SEDATED NSAIDS (Non-Steroidal AdvReac Unknown Verified 06/01/22 10:53 Anti-Inflamma allergy reaction Home Medications Medication Instructions Recorded Confirmed Type atorvastatin 40 mg tablet 40 mg PO HS Cholesterol 01/06/18 07/31/22 History bisoprolol fumarate 10 mg tablet 10 mg PO DAILY BLOOD PRESSURE 01/06/18 07/31/22 History melatonin 10 mg capsule 10 mg PO HS sleep 01/06/18 07/31/22 History apixaban 5 mg tablet 5 mg PO BID Blood thinner 07/23/19 07/31/22 History insulin aspart U-100 100 unit/mL 18 unit SQ QID Diabetes 11/29/19 07/31/22 History subcutaneous solution (Novolog U-100 Insulin aspart) oxycodone 10 mg tablet 10 mg PO Q4H PRN pain 11/29/19 07/31/22 History hydroxychloroquine 200 mg tablet 200 mg PO BID Rheumatoid arthritis 03/17/20 07/31/22 History ipratropium 0.5 mg-albuterol 3 mg 3 ml inhalation QIDRT PRN SOA 03/19/20 07/31/22 History (2.5 mg base)/3 mL nebulization soln fentanyl 12 mcg/hr transdermal 1 patch transdermal Q72H Pain 01/08/21 07/31/22 History patch acetaminophen 500 mg tablet 500 mg PO BID PRN Pain 09/02/21 07/31/22 History furosemide 40 mg tablet 40 mg PO BIDP PRN Edema 09/02/21 07/31/22 History gabapentin 800 mg tablet 800 mg PO QID NEUROPATHY 09/02/21 07/31/22 History insulin glargine 100 unit/mL 70 units SQ HS SUGAR 09/02/21 07/31/22 History subcutaneous solution escitalopram oxalate 5 mg tablet 5 mg PO DAILY Anxiety 12/28/21 07/31/22 History (Lexapro) alprazolam 0.5 mg tablet 0.5 mg PO TIDP PRN Anxiety 07/31/22 07/31/22 History pantoprazole 40 mg tablet,delayed 40 mg PO DAILY GERD 07/31/22 07/31/22 History release amoxicillin 500 mg-potassium 1 tab PO Q8H #21 tabs 08/02/22 Rx clavulanate 125 mg tablet (Augmentin) docusate sodium 100 mg capsule 100 mg PO DAILY #30 caps 08/02/22 Rx empagliflozin 10 mg tablet 10 mg PO DAILY #30 tabs 08/02/22 Rx (Jardiance) naloxone 4 mg/actuation nasal 4 mg intranasal Q2M #2 ea 08/02/22 Rx spray (Narcan) New Prescriptions to Start Prescriptions: Height: 1.65 m Weight: 83.007 kg Laboratory Results:: Lab
--- NOTE | 2022-08-06 08:30 | PC.NURSE ---
LAB AT BEDSIDE TO COLLECT BLOOD CULTURES AND LACTIC, OTHER TECH UNABLE. PT DIFFICULT BLOOD DRAW
[2022-08-06 09:17] LABS: Lactic Acid 0.9 mmol/L (0.7-2.1)
--- NOTE | 2022-08-06 09:27 | PC.NURSE ---
REPORT GIVEN TO Dangelo KIRKPATRICK RN
--- NOTE | 2022-08-06 09:30 | PC.NURSE ---
RESPIRATORY NOTIFIED OF PT TRANSFER TO STEP-DOWN ASSISTANCE REQUESTED WITH BI-PAP
[2022-08-06 11:15] LABS: POC Glucose,Bedside 57 (70-110)
[2022-08-06 13:04] LABS: Barbiturates Screen,Urine Negative ng/ml (<200)
[2022-08-06 13:05] LABS: Benzodiazepines Screen,Urine Positive ng/ml (<200)
[2022-08-06 13:06] LABS: Amphetamine/Metha Screen,Urine Negative ng/ml (<1000); Methadone Screen,Urine Negative ng/ml (<300)
[2022-08-06 13:07] LABS: Cannabinoid Screen,Urine Negative ng/ml (<50); Cocaine Screen,Urine Negative ng/ml (<300)
[2022-08-06 13:08] LABS: Opiate Screen,Urine Negative ng/ml (<300)
[2022-08-06 13:09] LABS: Phencyclidine Screen,Urine Negative ng/ml (<25)
[2022-08-06 14:11] LABS: POC Glucose,Bedside 94 (70-110)
--- NOTE | 2022-08-06 14:21 | HMH.PHAINT1 ---
Pharmacy Intervention Comments: MEDICATION RECONCILIATION COMPLETED ON PATIENT USING EXTERNAL FILL HISTORY FROM PHARMACY, GURPREET REPORT, AND DISCHARGE SUMMARY FROM PREVIOUS ADMISSION. -LORI BARNESD
[2022-08-07] VITALS (12 sets, daily range): BP systolic 113–154; BP diastolic 66–79; PULSE 70–79; RESP 16–20; TEMP 36.9–37.3; O2SAT 95–98; BMI 38.6
[2022-08-07 03:53] LABS: POC Glucose,Bedside 75 (70-110)
--- NOTE | 2022-08-07 03:54 | PC.NURSE ---
contacted SUZY Lange about pt FSBS of 42, pt has been given peanut butter crackers and apple juice, orders to give amp of D50. stat random glucose has been ordered per protocol.
[2022-08-07 04:20] LABS: Basophils # 0.2 K/mm3 (0-0.2); Basophils % 1.6 % (0.1-2.0); Eosinophils # 0.1 K/mm3 (0.0-0.4); Eosinophils % 0.8 % (0.1-12.0); Lymphocytes # 1.5 K/mm3 (0.7-4.5); Lymphocytes % 16.4 % (10-50); Mean Corpuscular HGB Conc 29.8 g/dL (31.8-35.4); Mean Corpuscular Hemoglobin 30.5 pg (27.0-31.2); Mean Corpuscular Volume 102.3 fl (81-99); Mean Platelet Volume 9.3 fl (7.4-10.4); Monocytes # 0.4 K/mm3 (0.1-1.0); Monocytes % 4.4 % (1.7-9.3); Neutrophils # 7.2 K/mm3 (1.8-7.8); Neutrophils % 76.8 % (37.0-80.0); Platelet Count 159 K/mm3 (142-424); Red Blood Count 2.94 M/mm3 (4.20-5.40); Red Cell Distribution Width 17.5 % (11.5-17.5); White Blood Count 9.4 K/mm3 (4.8-10.8)
[2022-08-07 04:29] LABS: Chloride 108 mmol/L (98-107); Potassium 4.9 mmoL/L (3.5-5.1); Sodium 144 mmol/L (136-145)
[2022-08-07 04:31] LABS: Blood Urea Nitrogen 23 mg/dl (7-17)
[2022-08-07 04:32] LABS: Alanine Aminotransferase 17 U/L (12-78); Albumin Level 2.8 g/dl (3.5-5.0); Albumin/Globulin Ratio 1.3 (1.1-1.8); Alkaline Phosphatase 77 U/L (38-126); Anion Gap 10.9 mEq/L (5-15); Aspartate Amino Transferase 32 U/L (14-36); Bilirubin,Total 0.7 mg/dl (0.2-1.3); Calcium 8.1 mg/dl (8.4-10.2); Carbon Dioxide 30 mmol/L (22.0-30.0); Creatinine Clearance Estimated 81 mL/min (50-200); Estimated Glomerular Filt Rate 54 ml/min (>60); GFR (African American) 65 ML/MIN (>60); Globulin 2.2 g/dL (1.3-3.2); Magnesium 2.4 mg/dl (1.6-2.3)
[2022-08-07 04:33] LABS: Glucose 203 mg/dl (74-100)
[2022-08-07 05:13] LABS: POC Glucose,Bedside 133 (70-110)
[2022-08-07 12:51] LABS: POC Glucose,Bedside 140 (70-110)
--- NOTE | 2022-08-07 13:17 | EXP.ACUTE.PN ---
Subjective *Date: 08/07/22 *Time: 13:17 Interval history: Stable on 2 L nasal cannula oxygen. Remained afebrile. Had another episode of hypoglycemia however last night in the middle of the night. Required an amp of D50, improved quickly. Having occasional nausea. Poor appetite but trying to eat at least a quarter of her tray. No marla emesis. Upset stomach began a few days ago, concerns associated with her COVID and is leading to some of her hypoglycemia. Has not had any insulin since admission. Denies any chest pain, confusion, dysuria. Medical Exam Vital signs and Labs for Last 24 Hours: Vital Signs Temp Pulse Pulse Resp BP Pulse Ox 08/07/22 12:00 98.5 F 73 18 138/79 97 08/07/22 10:48 95 08/07/22 10:23 74 08/07/22 10:23 70 08/07/22 10:23 98 08/07/22 08:00 98.5 F 74 18 113/67 98 08/07/22 06:25 71 08/07/22 06:25 78 08/07/22 06:25 97 08/07/22 04:00 98.5 F 72 16 135/71 98 08/07/22 00:00 98.7 F 70 18 150/71 H 96 08/06/22 20:00 98.5 F 72 20 160/79 H 99 08/06/22 19:34 72 08/06/22 19:34 72 08/06/22 19:34 95 08/06/22 16:00 98.7 F 71 18 146/76 H 97 08/06/22 15:05 81 08/06/22 15:05 77 Intake and Output 08/06/22 08/07/22 08/07/22 23:59 07:59 15:59 Intake Total 720 / 720 0 / 480 480 / 480 Output Total 0 / 400 200 / 200 Balance 720 / 320 0 / 280 280 / 280 Intake: Intake, Oral Amount 120 / 120 0 / 480 480 / 480 Intake, Total IV Amount 600 / 600 Cefepime HCl 2 gm In 0.9 % 100 / 100 Sodium Chloride 100 ml @ 200 mls/hr IV Q12H [facility] Rx#:[id number] Remdesivir 200 mg In 0.9 % 250 / 250 Sodium Chloride 250 ml @ 250 mls/hr IV ONCE ONE Rx#:[id number] Vancomycin/Water For Inj (Peg) 250 / 250 1.25 gm In 250 ml @ 125 mls/hr IV ONCE ONE Rx#:[id number] Output: Output, Urine Amount 0 / 400 200 / 200 Other: Number of Voids 0 Number of Unmeasured Voids 1 0 Number of Bowel Movements 1 Weight 105.097 kg Patient Weight 08/07/22 23:59 Weight 105.097 kg Laboratory Results - last 24 hr 08/06/22 04:55: Urine Opiates Screen Negative, Urine Methadone Screen Negative, Ur Barbituates Screen Negative, Ur Phencyclidine Scrn Negative, Ur Amphetamines Screen Negative, U Benzodiazepines Scrn Positive H, Urine Cocaine Screen Negative, U Marijuana (THC) Screen Negative 08/06/22 12:06: POC Glucose 94 08/06/22 20:05: POC Glucose 75 08/07/22 04:10: Sodium 144, Potassium 4.9, Chloride 108 H, Carbon Dioxide 30, Anion Gap 10.9, BUN 23 H, Creatinine 1.00, Estimated Creat Clear 81, Estimated GFR 54 L, Est GFR ( Amer) 65, Glucose 203 H D, Calcium 8.1 L, Magnesium 2.4 H, Total Bilirubin 0.7, AST 32 D, ALT 17 D, Alkaline Phosphatase 77, Total Protein 5.0 L, Albumin 2.8 L D, Globulin 2.2, Albumin/Globulin Ratio 1.3 08/07/22 04:10: WBC 9.4, RBC 2.94 L, Hgb 9.0 L D, Hct 30.0 L, MCV 102.3 H, MCH 30.5, MCHC 29.8 L, RDW 17.5, Plt Count 159, MPV 9.3, Neut % (Auto) 76.8, Lymph % (Auto) 16.4, Walton % (Auto) 4.4, Eos % (Auto) 0.8, Baso % (Auto) 1.6, Neut # (Auto) 7.2, Lymph # (Auto) 1.5, Walton # (Auto) 0.4, Eos # (Auto) 0.1, Baso # (Auto) 0.2 08/07/22 05:04: POC Glucose 133 H 08/07/22 12:42: POC Glucose 140 H I & O for Labs for Last 24 Hours: Intake & Output 08/04/22 08/05/22 08/06/22 08/07/22 23:59 23:59 23:59 23:59 Intake Total 720 / 720 480 / 480 Output Total 400 / 400 200 / 200 Balance 320 / 320 280 / 280 Weight 105 kg 105.097 kg Constitutional: Present mild distress, obese and chronically ill appearing Head: Present atraumatic and normocephalic ENT: Present normal exam and mucous membranes moist Neck: Present normal inspection and trachea midline Respiratory: Present wheezes, distant breath sounds and normal respiratory effort; Absent rhonchi or crackles Cardiac: Present Reg Rate and Rhythm GI: Present soft and normal bowel sounds; Abs
--- NOTE | 2022-08-07 17:08 | EXP.DC.SUM ---
General Admission date:: 08/06/22 Discharge date: 08/08/22 HPI HPI HPI: Ms. Espinosa is a 76-year-old female who he presented to the ER today with altered mental status, low blood sugar at home, and hypoxia on arrival. On examination of this patient she appears to be in no acute distress and nontoxic in nature.? She reports that she has been having trouble with her blood pressure continuing to drop in light of taking her medications as prescribed. Was somnolent on arrival with oxygen saturation reportedly at 83 on room air. Fentanyl patch was in place on arrival to the ER. She reports only taking her oral pain medication (oxycodone) 1-2 times a day. After taking a drink of sugary beverage at home this morning her blood sugar improved but is continued to drop/remain low during her time in the ER. Work-up initiated in the ER consisting of imaging and labs showing concern for hypoglycemia and oxygen requirement. Has chronic hypercarbic respiratory failure that is compensated with normal pH. She additionally is noted to have COVID. Complaining of significant weakness and unable to go home. Admitted to medicine for management of COVID, hypoglycemia, and polypharmacy. After arriving to the floor, she appears more alert and states she is less confused. She is asking for pain medication as she hurts from her chronic rheumatoid arthritis and neuropathy. Blood sugar improves when she drinks sugary beverages. Holding on diabetes treatment at this time. Patient afebrile and hemodynamically stable. No family at bedside on assessment. Of note, UDS obtained showing positive for benzos. Negative for opiates. While fentanyl may not show up on UDS, her oxycodone should. Hospital Course Hospital Course Hospital Course: 76-year-old female with multiple comorbidities and risk factors for decompensation.? Readmitted to the hospital for COVID, acute encephalopathy, hypoglycemia, and pneumonia.? I have strong concern for polypharmacy and risk of adverse events in the setting of sleep apnea and chronic narcotic and benzodiazepine use.? At this time holding her diabetes regimen and medications for anxiety.? We will use pain medication cautiously.? Problems addressed as follows: COVID-19 Pneumonia - Positive for flu last visit, positive for COVID this visit. Admitted for oxygen requirement, treatment for COVID and pneumonia. Started on dexamethasone, remdesivir, supplemental oxygen with goal saturation greater 90%. Did well during admission. Stable oxygen requirement of 2 L. Was intolerant of hospital BiPAP due to mask and history of claustrophobia/PTSD. Unable to bring home BiPAP due to family members with COVID and flu (unable to visit). Also initiated on broad-spectrum antibiotics for healthcare acquired pneumonia. Remained afebrile. Transitioned to Levaquin at time of discharge to complete 7-day total course of antibiotics. We will additionally finish dexamethasone course. No further antiviral treatment for COVID. Stable for discharge home, needs close follow-up with repeat imaging monitor for improvement and findings on exam. -Home oxygen ordered through [facility]. Provided to patient at discharge. Acute encephalopathy Hypoglycemia Polypharmacy -Encephalopathy resolved by the time she arrived to the floor. Multifactorial in etiology. No further episodes of confusion during admission. - Multiple risk factors for confusion and altered mental state.? Blood sugar gradually stabilized with holding all of her diabetes medications. On day of discharge her blood sugar was 127 on morning labs. Fingerstick glucose in the mid 100s for the past 24 hours prior to discharge. Would recommend holding diabetes medication at time of discharge and reevaluating with PCP. Of note, A1c at time of admission 7.3. -I additionally have significant concern for her outpatient pain regimen as a risk factor for her acute encephalopathy and putting her at risk for respiratory co
[2022-08-07 21:47] LABS: POC Glucose,Bedside 159 (70-110)
[2022-08-07 21:47] LABS: POC Glucose,Bedside 112 (70-110)
[2022-08-08] VITALS: BP 156/54; PULSE 71; RESP 22; TEMP 36.6; O2SAT 97
[2022-08-08 01:09] LABS: POC Glucose,Bedside 92 (70-110)
[2022-08-08 01:11] VITALS: PULSE 83; PULSE 85
[2022-08-08 04:00] VITALS: BP 149/76; PULSE 90; RESP 22; TEMP 36.6; O2SAT 96
[2022-08-08 04:27] VITALS: BMI 38.8
--- NOTE | 2022-08-08 05:07 | PC.NURSE ---
NO ACUTE CHANGES SINCE PREVIOUS ASSESSMENT. PT HAS RESTED INTERMITTENTLY THIS SHIFT. LUNG SOUNDS ARE DIMINISHED WITH SOME EXPIRATORY WHEEZING. REMAINS ON 2L NASAL CANNULA. PT C/O SOB ONCE THIS SHIFT AND WAS RELIEVED WITH A PRN BREATHING TREATMENT AND ADDING HUMIDIFICATION TO HER OXYGEN. PT HAS ALSO C/O PAIN AND NAUSEA X2 THIS SHIFT AND HAS BEEN MEDICATED PER DEC. PT'S FSBS HAS BEEN STABLE THIS SHIFT AT 159 AND 141. JUICE GIVEN THROUGHOUT SHIFT. VSS. CALL NIELSON WITH IN REACH.
[2022-08-08 05:12] LABS: POC Glucose,Bedside 141 (70-110)
[2022-08-08 06:53] VITALS: PULSE 70; PULSE 73; O2SAT 98
[2022-08-08 06:54] LABS: Basophils % 0.3 % (0.1-2.0); Hematocrit 29.1 % (37.0-47.0); Hemoglobin 8.8 g/dL (12.2-16.2); Lymphocytes # 1.3 K/mm3 (0.7-4.5); Lymphocytes % 13.4 % (10-50); Mean Corpuscular HGB Conc 30.3 g/dL (31.8-35.4); Mean Corpuscular Hemoglobin 30.4 pg (27.0-31.2); Mean Corpuscular Volume 100.2 fl (81-99); Monocytes # 0.5 K/mm3 (0.1-1.0); Monocytes % 4.8 % (1.7-9.3); Neutrophils # 7.9 K/mm3 (1.8-7.8); Neutrophils % 81.5 % (37.0-80.0); Platelet Count 172 K/mm3 (142-424); Red Cell Distribution Width 17.6 % (11.5-17.5); White Blood Count 9.7 K/mm3 (4.8-10.8)
[2022-08-08 07:01] LABS: Alanine Aminotransferase 18 U/L (12-78); Albumin Level 3.2 g/dl (3.5-5.0); Albumin/Globulin Ratio 1.3 (1.1-1.8); Alkaline Phosphatase 103 U/L (38-126); Anion Gap 14.6 mEq/L (5-15); Aspartate Amino Transferase 27 U/L (14-36); Bilirubin,Total 0.8 mg/dl (0.2-1.3); Blood Urea Nitrogen 25 mg/dl (7-17); Calcium 8.5 mg/dl (8.4-10.2); Carbon Dioxide 26 mmol/L (22.0-30.0); Chloride 109 mmol/L (98-107); Creatinine Clearance Estimated 81 mL/min (50-200); Estimated Glomerular Filt Rate 54 ml/min (>60); GFR (African American) 65 ML/MIN (>60); Globulin 2.5 g/dL (1.3-3.2); Glucose 127 mg/dl (74-100); Potassium 4.6 mmoL/L (3.5-5.1); Sodium 145 mmol/L (136-145); Total Protein,Serum 5.7 g/dl (6.3-8.2)
[2022-08-08 08:00] VITALS: BP 151/65; PULSE 73; RESP 20; TEMP 36.9; O2SAT 98
--- NOTE | 2022-08-08 08:43 | PC.NURSE ---
pt had 1 unmeasured void
[2022-08-08 10:14] VITALS: PULSE 71; O2SAT 96
--- NOTE | 2022-08-08 11:22 | PC.NURSE ---
pt 88% on room air
--- NOTE | 2022-08-08 13:14 | HMH.PHAINT1 ---
Pharmacy Intervention Comments: DISCHARGE MEDICATION COUNSELING PROVIDED TO PATIENT'S DAUGHTER. DISCUSSED THE FOLLOWING: -CHANGE OF OXYCODONE FROM Q4HP TO Q6HP -START THE FOLLOWING: -DEXAMETHASONE (STEROID, DAILY, TAKE WITH FOOD IN THE MORNING, CAN ELEVATE BLOOD SUGAR, UPSET STOMACH) -DOCUSATE (STOOL SOFTENER, DAILY, TAKE WITH FULL GLASS OF WATER) -DUONEBS (BREATHING TREATMENT, EVERY 6 HOURS NEEDED FOR SOB, MAY CAUSE JITTERY FEELING) -LEVOFLOXACIN (ANTIBIOTIC, DAILY, TAKE WITH FOOD, RISK OF TENDON RUPTURE, N/V/D POSSIBLE) -ONDANSETRON (FOR NAUSEA, EVERY 8 HOURS NEEDED, MIGHT MAKE HER SLEEPY) DAUGHER AND PATIENT VERBALIZED NO QUESTIONS AT THIS TIME.
[2022-08-08 14:04] LABS: POC Glucose,Bedside 202 (70-110)
[2022-08-09 17:09] LABS: Body Fluid Culture, Sterile Not indicated. (.); Organism ID Not indicated. (.); Specimen Source Urine (.); Streptococcus pneumoniae Ag Negative (Negative)
[2022-08-10 16:12] LABS: Legionella pneumophila Urinary Negative (Negative)
== END 2022-08-08 12:55 | disposition home or self-care (01) | DRG 177 ==
LOC: ER 04:07 → 2ND 08:42
PROVIDERS: Nurse Practitioner Family; Admitting Provider Internal Medicine Adolescent Medicine; Emergency Provider Student in an Organized Health Care Education/Training Program; PCP Internal Medicine; Visit Provider Internal Medicine Adolescent Medicine
DX: U07.1 COVID-19 (principal); J12.82 Pneumonia due to coronavirus disease 2019; J96.01 Acute respiratory failure with hypoxia; G93.40 Encephalopathy, unspecified; E11.40 Type 2 diabetes mellitus with diabetic neuropathy, unspecified; G47.30 Sleep apnea, unspecified; K21.9 Gastro-esophageal reflux disease without esophagitis; G89.29 Other chronic pain; Z79.4 Long term (current) use of insulin; F11.90 Opioid use, unspecified, uncomplicated; M06.9 Rheumatoid arthritis, unspecified; D64.89 Other specified anemias; Z66 Do not resuscitate; F41.9 Anxiety disorder, unspecified; E11.649 Type 2 diabetes mellitus with hypoglycemia without coma
CPT/HCPCS: 36415; 71045; 80053; 80305; 81001; 82009; 82803; 82962; 83036; 83605; 83735; 84443; 85025; 87040; 87899; 93005; 94640; 94761; 99285; C9803; J2405; U0003; U0005

== ENCOUNTER → 2022-08-17 16:39 | Outpatient (CLI) | payer MEDICARE, SELFPAY ==
[2022-08-17 18:27] LABS: Amphetamine/Metha Screen,Urine Negative ng/ml (<1000)
[2022-08-17 18:28] LABS: Barbiturates Screen,Urine Negative ng/ml (<200)
[2022-08-17 18:29] LABS: Benzodiazepines Screen,Urine Positive ng/ml (<200); Cannabinoid Screen,Urine Negative ng/ml (<50)
[2022-08-17 18:30] LABS: Cocaine Screen,Urine Negative ng/ml (<300); Methadone Screen,Urine Negative ng/ml (<300)
[2022-08-17 18:31] LABS: Opiate Screen,Urine Positive ng/ml (<300)
[2022-08-17 18:32] LABS: Phencyclidine Screen,Urine Negative ng/ml (<25)
[2022-08-25 10:35] LABS: Opiates Negative (Cutoff=100); Oxycodone (GC/MS) >3000 ng/mL (Cutoff=100); Oxymorphone (GC/MS) >3000 ng/mL (Cutoff=100)
== END ==
PROVIDERS: PCP Internal Medicine; Visit Provider Internal Medicine
DX: Z79.891 Long term (current) use of opiate analgesic (principal)
CPT/HCPCS: 80305; 80361; 80365; G0480

== ENCOUNTER 2022-08-29 13:25 | Observation (INO) | payer MEDICARE, SELFPAY ==
[2022-08-29] VITALS (11 sets, daily range): BP systolic 106–164; BP diastolic 56–117; PULSE 70–74; RESP 18–22; TEMP 36.6–36.9; O2SAT 80–100; BMI 38.6
--- NOTE | 2022-08-29 13:48 | XR_ITS ---
PROCEDURE INFORMATION: Exam: XR Chest Exam date and time: 08/29/2022 2:11 PM Age: 76 years old Clinical indication: Shortness of breath; Additional info: SOA TECHNIQUE: Imaging protocol: Radiologic exam of the chest. Views: 1 view. COMPARISON: CR XR CHEST AP 08/06/2022 4:38 AM FINDINGS: Tubes, catheters and devices: A pulse generator device is present, and its leads are in appropriate position. Lungs: Diffuse prominence of the interstitial markings noted Pleural spaces: Unremarkable. No pleural effusion. No pneumothorax. Heart/Mediastinum: Cardiomegaly Bones/joints: Unremarkable. IMPRESSION: IMPRESSION: Findings can be attributed to interstitial edema in the appropriate clinical context.
--- NOTE | 2022-08-29 13:53 | HMH.EDGENADL ---
Discharge Plan Disposition Patient Disposition: Admitted As Inpatient Condition: Fair Clinical Impressions Clinical Impression: Congestive heart failure, Hypoglycemia Discharge ED Provider: Satya Posey Adult HPI General Chief complaint: Altered Mental Status Stated complaint: Possible UTI, Abd pain, fever Time Seen by Provider: 08/29/22 13:42 Related Data Home Medications Medication Instructions Recorded Confirmed atorvastatin 40 mg tablet 40 mg PO HS Cholesterol 01/06/18 08/06/22 bisoprolol fumarate 10 mg tablet 10 mg PO DAILY Hypertension 01/06/18 08/06/22 melatonin 10 mg capsule 10 mg PO HS sleep 01/06/18 08/06/22 apixaban 5 mg tablet 5 mg PO BID AFIB 07/23/19 08/06/22 hydroxychloroquine 200 mg tablet 200 mg PO BID Rheumatoid arthritis 03/17/20 08/06/22 ipratropium 0.5 mg-albuterol 3 mg 3 ml inhalation QIDP PRN Shortness 03/19/20 08/06/22 (2.5 mg base)/3 mL nebulization Of Breath Or Wheezing soln acetaminophen 500 mg tablet 500 mg PO BIDP PRN Pain 09/02/21 08/06/22 furosemide 40 mg tablet 40 mg PO BIDP PRN Edema 09/02/21 08/06/22 gabapentin 800 mg tablet 800 mg PO QID NEUROPATHY 09/02/21 08/06/22 escitalopram oxalate 5 mg tablet 5 mg PO DAILY Anxiety 12/28/21 08/06/22 (Lexapro) alprazolam 0.5 mg tablet 0.5 mg PO TIDP PRN Anxiety 07/31/22 08/06/22 pantoprazole 40 mg tablet,delayed 40 mg PO DAILY GERD 07/31/22 08/06/22 release docusate sodium 100 mg capsule 100 mg PO DAILY CONSTIPATION 08/06/22 08/06/22 empagliflozin 10 mg tablet 10 mg PO DAILY CHF 08/06/22 08/06/22 (Jardiance) naloxone 4 mg/actuation nasal 4 mg intranasal DIRECTED PRN 08/06/22 08/06/22 spray (Narcan) OVERDOSE Previous Rx's Medication Instructions Recorded docusate sodium 100 mg capsule 100 mg PO DAILY 30 days #30 caps 08/07/22 oxycodone 10 mg tablet 10 mg PO Q6HP PRN pain 30 days #0 11/05/22 tabs dexamethasone 4 mg tablet 4 mg PO DAILY 3 days #3 tabs 08/08/22 ipratropium 0.5 mg-albuterol 3 mg 3 ml inhalation Q6HP PRN Shortness 08/08/22 (2.5 mg base)/3 mL nebulization Of Breath 30 days #120 mL soln levofloxacin 500 mg tablet 500 mg PO DAILY 4 days #4 tabs 08/08/22 ondansetron 4 mg disintegrating 4 mg PO Q8H PRN nausea and 08/08/22 tablet vomiting 3 days #9 tabs Allergies Allergy/AdvReac Type Severity Reaction Status Date / Time amitriptyline [From Elavil] Allergy Severe [id number]/THROAT; Verified 06/01/22 10:53 SEIZURES chlorpromazine Allergy Severe SEIZURES Verified 06/01/22 10:53 [From Thorazine] dichloralphenazone Allergy Severe S-SWELLS-OR Verified 06/01/22 10:53 [From Midrin] AL/THROAT isometheptene [From Midrin] Allergy Severe S-SWELLS-OR Verified 06/01/22 10:53 AL/THROAT prochlorperazine Allergy Severe SEIZURES Verified 06/01/22 10:53 [From Compazine] adhesive tape Allergy Intermediate I-RASH Verified 06/01/22 10:53 aspirin Allergy Intermediate COLD Verified 06/01/22 10:53 SWEATS , N/V cyclobenzaprine Allergy Unknown Unknown Verified 06/01/22 10:53 [From FLEXERIL] allergy reaction duloxetine [DULOXETINE] Allergy Unknown Unknown Verified 06/01/22 10:53 allergy reaction Iodinated Contrast Media Allergy Unknown Unknown Verified 06/01/22 10:53 [IODINATED CONTRAST MEDIA - allergy ORAL AND] reaction Sulfa (Sulfonamide Allergy Unknown CONTRAINDICATED Verified 06/01/22 10:53 Antibiotics) WITH ASTHMA trimethoprim [TRIMETHOPRIM] Allergy Unknown Unknown Verified 06/01/22 10:53 allergy reaction leflunomide Allergy rash, Verified 06/01/22 10:53 redness Macrolide Antibiotics Allergy rash, Verified 06/01/22 10:53 redness Beta-Blockers AdvReac Severe MAKES Verified 06/01/22 10:53 (Beta-Adrenergic Bloc ASTHMA WORSE caffeine [From Cafergot] AdvReac Mild NA-NAUSEA Verified 06/01/22 10:53 ergotamine [From Cafergot] AdvReac Mild NA-NAUSEA Verified 06/01/22 10:53 pregabalin [From Lyrica] AdvReac Mild TOO Verifie
--- NOTE | 2022-08-29 13:53 | HMH.EDGENADL ---
Discharge Plan Disposition Chief Complaint: Altered Mental Status Prescriptions Prescriptions: No Action apixaban 5 mg tablet 5 mg PO BID hydroxychloroquine 200 mg tablet 200 mg PO BID escitalopram oxalate [Lexapro] 5 mg tablet 5 mg PO DAILY atorvastatin 40 MG tablet 40 mg PO HS bisoprolol fumarate 10 MG tablet 10 mg PO DAILY melatonin 10 MG capsule 10 mg PO HS furosemide 40 mg tablet 40 mg PO BIDP PRN (Reason: Edema) acetaminophen 500 mg tablet 500 mg PO BIDP PRN (Reason: Pain) gabapentin 800 mg tablet 800 mg PO QID ipratropium-albuterol 3 ML solution for nebulization 3 ml IH QIDP PRN (Reason: Shortness Of Breath Or Wheezing) alprazolam 0.5 mg tablet 0.5 mg PO TIDP PRN (Reason: Anxiety) pantoprazole 40 mg tablet,delayed release (DR/EC) 40 mg PO DAILY docusate sodium 100 mg capsule 100 mg PO DAILY Jardiance 10 mg tablet 10 mg PO DAILY naloxone [Narcan] 4 mg/actuation spray,non-aerosol 4 mg intranasal DIRECTED PRN (Reason: OVERDOSE) Rx Instructions: spray 1 dose into ONE nostril; alternate nostrils w each dose until help arrives docusate sodium 100 mg Capsule 100 mg PO DAILY 30 Days Qty: 30 0RF oxycodone 10 mg tablet 10 mg PO Q6HP PRN (Reason: pain) 30 Days Qty: 0 0RF dexamethasone 4 mg Tablet 4 mg PO DAILY 3 Days Qty: 3 0RF levofloxacin 500 mg tablet 500 mg PO DAILY 4 Days Qty: 4 0RF ondansetron 4 mg tablet,disintegrating 4 mg PO Q8H PRN (Reason: nausea and vomiting) 3 Days Qty: 9 0RF ipratropium-albuterol 0.5 mg-3 mg(2.5 mg base)/3 mL Solution For Nebulization 3 ml inhalation Q6HP PRN (Reason: Shortness Of Breath) 30 Days Qty: 120 0RF Referrals Follow up/Referrals: Geovany Mdeel MD [Primary Care Provider] - See instructions Instructions Patient Instructions: DI for Altered Mental Status Discharge ED Provider: Satya Posey General Adult HPI General Chief complaint: Altered Mental Status Stated complaint: Possible UTI, Abd pain, fever Time Seen by Provider: 08/29/22 13:42 History of Present Illness HPI narrative: Patient presents with a 3-week history abdominal pain and vomiting. Symptoms are described as moderate and without exacerbating or alleviating symptoms. She also notes increasing shortness of air for the last week. She was recently diagnosed with flu. She denies fever. She denies chest pain. Related Data Home Medications Medication Instructions Recorded Confirmed atorvastatin 40 mg tablet 40 mg PO HS Cholesterol 01/06/18 08/06/22 bisoprolol fumarate 10 mg tablet 10 mg PO DAILY Hypertension 01/06/18 08/06/22 melatonin 10 mg capsule 10 mg PO HS sleep 01/06/18 08/06/22 apixaban 5 mg tablet 5 mg PO BID AFIB 07/23/19 08/06/22 hydroxychloroquine 200 mg tablet 200 mg PO BID Rheumatoid arthritis 03/17/20 08/06/22 ipratropium 0.5 mg-albuterol 3 mg 3 ml inhalation QIDP PRN Shortness 03/19/20 08/06/22 (2.5 mg base)/3 mL nebulization Of Breath Or Wheezing soln acetaminophen 500 mg tablet 500 mg PO BIDP PRN Pain 09/02/21 08/06/22 furosemide 40 mg tablet 40 mg PO BIDP PRN Edema 09/02/21 08/06/22 gabapentin 800 mg tablet 800 mg PO QID NEUROPATHY 09/02/21 08/06/22 escitalopram oxalate 5 mg tablet 5 mg PO DAILY Anxiety 12/28/21 08/06/22 (Lexapro) alprazolam 0.5 mg tablet 0.5 mg PO TIDP PRN Anxiety 07/31/22 08/06/22 pantoprazole 40 mg tablet,delayed 40 mg PO DAILY GERD 07/31/22 08/06/22 release docusate sodium 100 mg capsule 100 mg PO DAILY CONSTIPATION 08/06/22 08/06/22 empagliflozin 10 mg tablet 10 mg PO DAILY CHF 08/06/22 08/06/22 (Jardiance) naloxone 4 mg/actuation nasal 4 mg intranasal DIRECTED PRN 08/06/22 08/06/22 spray (Narcan) OVERDOSE Previous Rx's Medication Instructions Recorded docusate sodium 100 mg capsule 100 mg PO DAILY 30 days #30 caps 08/07/22 oxycodone 10 mg tablet 10 mg PO Q6HP PRN pain 30 days #0 08/07/22 tabs dexamethaso
--- NOTE | 2022-08-29 16:00 | PC.NURSE ---
EKG delayed due to attempting to obtain blood work.
[2022-08-29 16:46] LABS: Basophils % 0.2 % (0.1-2.0); Eosinophils # 0.1 K/mm3 (0.0-0.4); Eosinophils % 1.1 % (0.1-12.0); Hemoglobin 8.2 g/dL (12.2-16.2); Lymphocytes # 1.1 K/mm3 (0.7-4.5); Lymphocytes % 16.1 % (10-50); Mean Corpuscular HGB Conc 30.3 g/dL (31.8-35.4); Mean Corpuscular Hemoglobin 30.1 pg (27.0-31.2); Mean Corpuscular Volume 99.4 fl (81-99); Mean Platelet Volume 9.2 fl (7.4-10.4); Monocytes # 0.3 K/mm3 (0.1-1.0); Monocytes % 5.1 % (1.7-9.3); Neutrophils # 5.2 K/mm3 (1.8-7.8); Neutrophils % 77.5 % (37.0-80.0); Platelet Count 183 K/mm3 (142-424); Red Blood Count 2.73 M/mm3 (4.20-5.40); Red Cell Distribution Width 17.1 % (11.5-17.5); White Blood Count 6.7 K/mm3 (4.8-10.8)
[2022-08-29 16:47] LABS: Hematocrit 27.1 % (37.0-47.0)
[2022-08-29 16:48] LABS: Chloride 101 mmol/L (98-107); Sodium 139 mmol/L (136-145)
[2022-08-29 16:50] LABS: Alanine Aminotransferase 14 U/L (12-78); Aspartate Amino Transferase 29 U/L (14-36); Blood Urea Nitrogen 33 mg/dl (7-17); Creatinine Clearance Estimated 50 mL/min (50-200); Estimated Glomerular Filt Rate 31 ml/min (>60); GFR (African American) 38 ML/MIN (>60)
[2022-08-29 16:51] LABS: Albumin Level 3.6 g/dl (3.5-5.0); Albumin/Globulin Ratio 1.2 (1.1-1.8); Alkaline Phosphatase 116 U/L (38-126); Bilirubin,Total 0.5 mg/dl (0.2-1.3); Calcium 8.5 mg/dl (8.4-10.2); Carbon Dioxide 36 mmol/L (22.0-30.0); Globulin 2.9 g/dL (1.3-3.2); Total Protein,Serum 6.5 g/dl (6.3-8.2)
[2022-08-29 17:00] LABS: NT Pro Brain Natriuretic Pep. 4490 pg/mL (0-450)
[2022-08-29 17:11] LABS: Glucose 33 mg/dl (74-100); Troponin I < 0.01 ng/ml (0.00-0.034)
--- NOTE | 2022-08-29 17:37 | PC.NURSE ---
Dr Graff at bedside at this time.
--- NOTE | 2022-08-29 18:23 | PC.NURSE ---
contacted hospitalist about admission orders, states he is putting them in the computer now
--- NOTE | 2022-08-29 18:28 | EXP.HP ---
History of Present Illness *Admission Date: 08/29/22 *Reason for visit:: Shortness of breath *History of present illness: Patient is a 76-year-old female who has multiple comorbidities who recently was treated for COVID-pneumonia and influenza who presents to the emergency department due to progressive dyspnea on exertion, dyspnea at rest, orthopnea, weight gain and swelling for the past week. endorses decreased urine output. Has also been having 3-week history of diarrhea and vomiting. The emergency department evaluation demonstrated pulmonary edema on chest x-ray, patient has an EREN, oxygen requirement, elevated brain natretic peptide. While in the emergency department patient had an episode of hypoglycemia secondary to insulin administration by despite being n.p.o. patient was admitted to medicine service. [facility] Medical History Chronic narcotic use Chronic pain disorder Degenerative joint disease (DJD) of lumbar spine Diabetes Diabetic neuropathy GERD (gastroesophageal reflux disease) Hypertension Lumbosacral radiculopathy due to degenerative joint disease of spine Obese Polypharmacy Severe sleep apnea Family History Other Diabetes Social History Smoking Status: Never smoker second hand exposure: No alcohol intake: never substance use type: denies use current occupational status: disabled Travel in the last 8 weeks: None household members: spouse and other housing: other number of children: 3 current occupational exposures/hazards: No caffeine: Yes Review of Systems Review of Systems Review of systems:: unable to obtain (Dyspnea, and 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) Constitutional Constitutional: Reports fatigue *Cardiovascular Cardiovascular: Reports dyspnea and Reports dyspnea on exertion *Respiratory Respiratory: Reports dyspnea and Reports dyspnea on exertion *Gastrointestinal Gastrointestinal: Reports as per HPI Endocrine Endocrine: Reports fatigue Meds Home Medications and Allergies Home Medications Medication Instructions Recorded Confirmed Type atorvastatin 40 mg tablet 40 mg PO HS Cholesterol 01/06/18 08/06/22 History bisoprolol fumarate 10 mg tablet 10 mg PO DAILY Hypertension 01/06/18 08/06/22 History melatonin 10 mg capsule 10 mg PO HS sleep 01/06/18 08/06/22 History apixaban 5 mg tablet 5 mg PO BID AFIB 07/23/19 08/06/22 History hydroxychloroquine 200 mg tablet 200 mg PO BID Rheumatoid arthritis 03/17/20 08/06/22 History ipratropium 0.5 mg-albuterol 3 mg 3 ml inhalation QIDP PRN Shortness 03/19/20 08/06/22 History (2.5 mg base)/3 mL nebulization Of Breath Or Wheezing soln acetaminophen 500 mg tablet 500 mg PO BIDP PRN Pain 09/02/21 08/06/22 History furosemide 40 mg tablet 40 mg PO BIDP PRN Edema 09/02/21 08/06/22 History gabapentin 800 mg tablet 800 mg PO QID NEUROPATHY 09/02/21 08/06/22 History escitalopram oxalate 5 mg tablet 5 mg PO DAILY Anxiety 12/28/21 08/06/22 History (Lexapro) alprazolam 0.5 mg tablet 0.5 mg PO TIDP PRN Anxiety 07/31/22 08/06/22 History pantoprazole 40 mg tablet,delayed 40 mg PO DAILY GERD 07/31/22 08/06/22 History release docusate sodium 100 mg capsule 100 mg PO DAILY CONSTIPATION 08/06/22 08/06/22 History empagliflozin 10 mg tablet 10 mg PO DAILY CHF 08/06/22 08/06/22 History (Jardiance) naloxone 4 mg/actuation nasal 4 mg intranasal DIRECTED PRN 08/06/22 08/06/22 History spray (Narcan) OVERDOSE docusate sodium 100 mg capsule 100 mg PO DAILY 30 days #30 caps 08/07/22 Rx oxycodone 10 mg tablet 10 mg PO Q6HP PRN pain 30 days #0 08/07/22 08/06/22 Rx tabs dexamethasone 4 mg tablet 4 mg PO DAILY 3 days #3 tabs 08/08/22 Rx ipratropium 0.5 mg-albuterol 3 mg 3 ml inhalation Q6HP PRN Shortness 08/08/22 Rx (2.5 mg base)/3 mL nebulization Of Breath 30 days #12
--- NOTE | 2022-08-29 18:36 | PC.NURSE ---
attempted to call report to second floor, staff stated they would call right back
[2022-08-29 18:48] LABS: Lactic Acid 0.9 mmol/L (0.7-2.1)
--- NOTE | 2022-08-29 18:53 | PC.NURSE ---
fsbs 28 notified ER MD gave verbal order for 1 amp d50
--- NOTE | 2022-08-29 18:53 | PC.NURSE ---
FSBS 28, made aware. Verbal orders given to nurse.
--- NOTE | 2022-08-29 18:54 | PC.NURSE ---
report called to kory pedro on second floor
--- NOTE | 2022-08-29 18:57 | PC.NURSE ---
notified campos billings (hospitalist) of pt of fsbs 28, ER order 1 amp d50 and to start pt on d10 fluids per IV
--- NOTE | 2022-08-29 19:06 | PC.NURSE ---
staff attempted to give pt 1 amp of d50, iv would not flush or draw back blood. Staff attempted to start another IV. Pt awake alert and oriented pt able to follow commands, ER MD aware of the above. Pt given 2 8 oz cups of orange juice and a packet of sugar while trying to establish a new IV to give d50
[2022-08-29 19:52] LABS: Coronavirus 19, PCR Not Detected (NotDetected); Influenza A, PCR Not Detected (NotDetected); Influenza B, PCR Not Detected (NotDetected)
[2022-08-29 19:58] LABS: POC Glucose,Bedside 219 (70-110)
--- NOTE | 2022-08-29 19:59 | PC.NURSE ---
pt arrived to floor via stretcher @ 1955.
[2022-08-29 20:16] LABS: Troponin I 0.01 ng/ml (0.00-0.034)
[2022-08-29 22:26] LABS: Microscopic, Urine URINE MICROSCOPIC (MICROSCOPIC)
[2022-08-29 22:36] LABS: Appearance,Urine CLEAR (Clear); Bilirubin,Urine Negative (Negative); Blood, Urine Negative (Negative); Color,Urine YELLOW (Yellow); Glucose,Urine (UA) Negative (Negative); Ketones,Urine Negative (Negative); Leukocyte Esterase,Urine Negative (Negative); Nitrate,Urine Negative (Negative); Protein,Urine Negative (Negative); Specific Gravity, Urine 1.025 (1.005-1.030); Urobilinogen,Urine 0.2 EU/dl (0.2)
[2022-08-29 23:20] LABS: POC Glucose,Bedside 101 (70-110)
[2022-08-29 23:38] LABS: Troponin I < 0.01 ng/ml (0.00-0.034)
[2022-08-30] VITALS (8 sets, daily range): BP systolic 110–138; BP diastolic 51–83; PULSE 69–80; RESP 16–18; TEMP 36.4–36.9; O2SAT 95–97; BMI 38.5
[2022-08-30 05:50] LABS: POC Glucose,Bedside 68 (70-110)
[2022-08-30 07:39] LABS: Basophils % 0.5 % (0.1-2.0); Eosinophils # 0.3 K/mm3 (0.0-0.4); Eosinophils % 4.5 % (0.1-12.0); Hematocrit 28.1 % (37.0-47.0); Hemoglobin 8.4 g/dL (12.2-16.2); Lymphocytes # 1.7 K/mm3 (0.7-4.5); Lymphocytes % 31.1 % (10-50); Mean Corpuscular HGB Conc 29.8 g/dL (31.8-35.4); Mean Corpuscular Hemoglobin 30.2 pg (27.0-31.2); Mean Corpuscular Volume 101.5 fl (81-99); Mean Platelet Volume 9.2 fl (7.4-10.4); Monocytes # 0.4 K/mm3 (0.1-1.0); Monocytes % 6.4 % (1.7-9.3); Neutrophils # 3.2 K/mm3 (1.8-7.8); Neutrophils % 57.5 % (37.0-80.0); Platelet Count 171 K/mm3 (142-424); Red Blood Count 2.77 M/mm3 (4.20-5.40); Red Cell Distribution Width 17.1 % (11.5-17.5); White Blood Count 5.6 K/mm3 (4.8-10.8)
[2022-08-30 07:46] LABS: Alanine Aminotransferase 11 U/L (12-78); Albumin Level 3.3 g/dl (3.5-5.0); Albumin/Globulin Ratio 1.2 (1.1-1.8); Alkaline Phosphatase 108 U/L (38-126); Anion Gap 13.9 mEq/L (5-15); Aspartate Amino Transferase 22 U/L (14-36); Bilirubin,Total 0.5 mg/dl (0.2-1.3); Blood Urea Nitrogen 29 mg/dl (7-17); Calcium 8.3 mg/dl (8.4-10.2); Carbon Dioxide 38 mmol/L (22.0-30.0); Chloride 92 mmol/L (98-107); Creatinine Clearance Estimated 50 mL/min (50-200); Estimated Glomerular Filt Rate 31 ml/min (>60); GFR (African American) 38 ML/MIN (>60); Globulin 2.7 g/dL (1.3-3.2); Glucose 88 mg/dl (74-100); Potassium 3.9 mmoL/L (3.5-5.1); Sodium 140 mmol/L (136-145)
[2022-08-30 07:47] LABS: INR 1.26 (0.9-1.1); Prothrombin Time 13.4 seconds (10.1-12.5)
--- NOTE | 2022-08-30 07:58 | HMH.PHAINT1 ---
Pharmacy Intervention Comments: Medication reconciliation completed via chart review and external fill history. -Phuong Atkinson, PharmD Candidate 2022
[2022-08-30 12:08] LABS: POC Glucose,Bedside 143 (70-110)
--- NOTE | 2022-08-30 12:28 | HMH.PTEV ---
Physical Therapy Evaluation Rehab PT IP Evaluation Start: 08/30/22 11:12 Freq: ONCE Status: Active Protocol: Document 08/30/22 11:40 STEPHAN (Rec: 08/30/22 12:28 STEPHAN [id number]) Subjective/History History History Patient is a 76-year-old female who has multiple comorbidities who recently was treated for COVID-pneumonia and influenza who presents to the emergency department due to progressive dyspnea on exertion, dyspnea at rest, orthopnea, weight gain and swelling for the past week. endorses decreased urine output. Has also been having 3-week history of diarrhea and vomiting Subjective Subjective Pt is well known to therapy from both multiple IP admissions and OP treatments. Pt is W/C dependent at home and uses to assist w/ transfers. Pt only transfers from bed to W/C, W/C to toilet /bath. No ambulation Rehab PT IP Eval Objective Appearance Patient Behavior Cooperative Patient Orientation Person,Place,Time Difficulty following instructions none Speech Pattern Appropriate Ambulation Patient Able to Ambulate No Balance Ability to Arise Able, uses arms to help Sitting Balance Steady, safe Standing Balance Unsteady Dynamic Sitting Balance Ability Fair Dynamic Standing Balance Ability Poor Transfers Bed Transfer Ability Contact Guard/Hand Hold Chair Transfer Ability Contact Guard/Hand Hold Sit to Stand Bed Transfer Ability Contact Guard/Hand Hold, Minimal x 1 (25% assist) Sit to Stand Chair Transfer Ability Minimal x 1 (25% assist), Moderate x 1 (50% assist) Rehab PT IP prob,goals,plan Problems Date of Evaluation: 08/30/22 PT IP Problems Gait,Balance,Self care Rehab Potential Rehab Potential Fair Discharge Goals Bed Transfer Ability Contact Guard/Hand Hold Sit to Stand Chair Transfer Ability Minimal x 1 (25% assist), Moderate x 1 (50% assist) Discharge Plan PT Discharge Plan Pt to dc home once medically stable - while in [facility] pt is to be seen
--- NOTE | 2022-08-30 13:44 | HMH.OTEV ---
OT Inpatient Evaluation Rehab OT IP Evaluation Start: 08/30/22 11:12 Freq: ONCE Status: Complete Protocol: Document 08/30/22 11:30 [facility] (Rec: 08/30/22 13:44 [facility] [id number]) Rehab OT IP Assessment Subjective History Pt oriented x 3 on arrival. Pt agreeable to engage in therapy evaluation. Pt was admitted via ED on 08/29/22 due to cotinued shortness of breath. Pt was recently treated for COVID-pneumonia and influenza and has continued to experience progressive dyspnea on exertion, dyspnea at rest, orthopnea, weight gain and swelling for the past week. Pt reports prior to coming to the hospital, she lived at home with her . Pt was wheelchair bound and did not ambulate. She was able to complete step transfers from surface to wheelchair or vice versa with cga/min assist from . Pt reports her completed her lower body dressing for her. He also assisted with bathing. Pt was dependent upon her for completion of all IADLs. 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 Objective Patient Orientation Person,Place,Birthday Upper Extremity Gross ROM WFL Bed Mobility bed mobility-scoo
--- NOTE | 2022-08-30 17:26 | EXP.ACUTE.PN ---
Subjective *Date: 08/30/22 *Time: 17:26 Interval history: No issues overnight. Feels much better this morning. Breathing easier. fluid is decreasing Answered all questions. Medical Exam Vital signs and Labs for Last 24 Hours: Vital Signs Temp Pulse Pulse Resp BP BP Pulse Ox 08/30/22 16:00 70 08/30/22 11:41 80 08/30/22 08:23 70 08/30/22 12:00 98.2 F 70 18 112/62 97 08/30/22 08:00 97.9 F 79 16 112/51 L 95 08/29/22 22:56 70 08/30/22 00:00 70 08/30/22 04:00 97.6 F 70 16 138/83 08/30/22 00:00 98.2 F 69 18 110/62 97 08/29/22 20:08 97.9 F 71 18 124/78 08/29/22 20:07 97.9 F 70 18 119/72 97 08/29/22 18:00 70 130/58 L 98 08/29/22 17:30 74 106/56 L 96 Intake and Output 08/30/22 08/30/22 08/30/22 07:59 15:59 23:59 Intake Total 275 / 940 665 / 940 Output Total 1800 / 2100 300 / 2100 Balance -1525 / -1160 365 / -1160 Intake: Intake, Oral Amount 240 / 240 Intake, Total IV Amount 275 / 700 425 / 700 Dextrose 10 % in Water 500 ml @ 275 / 700 425 / 700 25 mls/hr IV .Q20H [facility] Rx#: [id number] Output: Output, Urine Amount 300 / 300 Output, Urine Amount (Catheter) 1800 / 1800 Huynh 1800 / 1800 Other: Number of Unmeasured Voids 0 0 Weight 104.78 kg Patient Weight 08/30/22 23:59 Weight 104.78 kg Laboratory Results - last 24 hr 08/29/22 16:23: Lactate 0.9 08/29/22 19:20: Troponin I 0.01 08/29/22 19:48: SARS-CoV-2 (PCR) Not detected, Influenza A Untype (PCR) Not detected, Influenza Type B (PCR) Not detected 08/29/22 19:51: POC Glucose 219 H 08/29/22 20:50: Urine Color Yellow, Urine Appearance Clear, Urine pH 6.0, Ur Specific Jesse 1.025, Urine Protein Negative, Urine Glucose (UA) Negative, Urine Ketones Negative, Urine Blood Negative, Urine Nitrate Negative, Urine Bilirubin Negative, Urine Urobilinogen 0.2, Ur Leukocyte Esterase Negative, Hyaline Casts 3-5 08/29/22 22:45: Troponin I < 0.01 08/29/22 23:14: POC Glucose 101 08/30/22 05:42: POC Glucose 68 L 08/30/22 07:10: WBC 5.6, RBC 2.77 L, Hgb 8.4 L, Hct 28.1 L, MCV 101.5 H, MCH 30.2, MCHC 29.8 L, RDW 17.1, Plt Count 171, MPV 9.2, Neut % (Auto) 57.5, Lymph % (Auto) 31.1, Alpine % (Auto) 6.4, Eos % (Auto) 4.5, Baso % (Auto) 0.5, Neut # (Auto) 3.2, Lymph # (Auto) 1.7, Alpine # (Auto) 0.4, Eos # (Auto) 0.3, Baso # (Auto) 0.0 08/30/22 07:10: PT 13.4 H, INR 1.26 H 08/30/22 07:10: Sodium 140, Potassium 3.9 D, Chloride 92 L, Carbon Dioxide 38 H, Anion Gap 13.9, BUN 29 H, Creatinine 1.60 H, Estimated Creat Clear 50, Estimated GFR 31 L, Est GFR ( Amer) 38 L, Glucose 88 D, Calcium 8.3 L, Phosphorus 4.0, Magnesium 2.0, Total Bilirubin 0.5, AST 22, ALT 11 L, Alkaline Phosphatase 108, Total Protein 6.0 L, Albumin 3.3 L, Globulin 2.7, Albumin/Globulin Ratio 1.2 08/30/22 11:51: POC Glucose 143 H I & O for Labs for Last 24 Hours: Intake & Output 08/27/22 08/28/22 08/29/22 08/30/22 23:59 23:59 23:59 23:59 Intake Total 940 / 940 Output Total 2100 / 2100 Balance -1160 / -1160 Weight 105.262 kg 104.78 kg Constitutional: Present no acute distress, morbidly obese, chronically ill appearing and cooperative Head: Present normocephalic Neck: Present normal inspection Respiratory: Present crackles and diminished air movement; Absent respiratory distress Cardiac: Present Reg Rate and Rhythm, S1/S2 and No Murmur GI: Present soft and normal bowel sounds Rectal (female): Present deferred (female): Present deferred Extremities: Present edema Comment:: 1+ Skin: Present intact and dry Assessment and Plan *Assessment and plan (1) Congestive heart failure: Status: Acute Category: Medical Code(s): I50.9 - Heart failure, unspecified (2) Hypoglycemia: Status: Acute Category: Medical Code(s): E16.2 - Hypoglycemia, unspecified (3) Hypertension: Status: Acute Category: Me
[2022-08-30 20:42] LABS: POC Glucose,Bedside 186 (70-110)
[2022-08-30 21:55] LABS: POC Glucose,Bedside 166 (70-110)
--- NOTE | 2022-08-30 23:10 | PC.NURSE ---
per CONOR calero to dc fire management specialist at this time
[2022-08-31] VITALS (17 sets, daily range): BP systolic 112–162; BP diastolic 54–92; PULSE 69–77; RESP 16–18; TEMP 36.8–37.4; O2SAT 93–98; BMI 37.3
[2022-08-31 00:38] LABS: POC Glucose,Bedside 159 (70-110)
[2022-08-31 05:37] LABS: POC Glucose,Bedside 108 (70-110)
[2022-08-31 07:27] LABS: Basophils % 0.1 % (0.1-2.0); Eosinophils # 0.3 K/mm3 (0.0-0.4); Eosinophils % 5.5 % (0.1-12.0); Hemoglobin 7.9 g/dL (12.2-16.2); Lymphocytes # 1.4 K/mm3 (0.7-4.5); Lymphocytes % 27.6 % (10-50); Mean Corpuscular HGB Conc 30.3 g/dL (31.8-35.4); Mean Corpuscular Hemoglobin 30.3 pg (27.0-31.2); Mean Platelet Volume 9.1 fl (7.4-10.4); Monocytes # 0.3 K/mm3 (0.1-1.0); Monocytes % 6.1 % (1.7-9.3); Neutrophils # 3.1 K/mm3 (1.8-7.8); Neutrophils % 60.6 % (37.0-80.0); Platelet Count 170 K/mm3 (142-424); Red Cell Distribution Width 17.1 % (11.5-17.5); White Blood Count 5.1 K/mm3 (4.8-10.8)
[2022-08-31 07:34] LABS: Alanine Aminotransferase 12 U/L (12-78); Albumin Level 3.1 g/dl (3.5-5.0); Albumin/Globulin Ratio 1.2 (1.1-1.8); Alkaline Phosphatase 93 U/L (38-126); Anion Gap 13.5 mEq/L (5-15); Aspartate Amino Transferase 22 U/L (14-36); Bilirubin,Total 0.5 mg/dl (0.2-1.3); Blood Urea Nitrogen 27 mg/dl (7-17); Carbon Dioxide 39 mmol/L (22.0-30.0); Chloride 91 mmol/L (98-107); Creatinine Clearance Estimated 56 mL/min (50-200); Estimated Glomerular Filt Rate 37 ml/min (>60); GFR (African American) 44 ML/MIN (>60); Globulin 2.6 g/dL (1.3-3.2); Glucose 97 mg/dl (74-100); Magnesium 2.2 mg/dl (1.6-2.3); Phosphorous 3.8 mg/dl (2.5-4.5); Potassium 3.5 mmoL/L (3.5-5.1); Sodium 140 mmol/L (136-145); Total Protein,Serum 5.7 g/dl (6.3-8.2)
[2022-08-31 12:12] LABS: POC Glucose,Bedside 178 (70-110)
[2022-08-31 16:49] LABS: POC Glucose,Bedside 136 (70-110)
--- NOTE | 2022-08-31 17:32 | EXP.ACUTE.PN ---
Subjective *Date: 08/31/22 *Time: 17:32 Interval history: Still complaining of shortness of breath this morning however down to 2 L which is her baseline in which she has been on at home for the past month. Denies chest pain, nausea, vomiting. Diuresed well with -2.4 L in the past 24 hours. Still having heartburn type symptoms. States she has daily bowel movements, has had 2 in the past 24 hours. Denies significant cough. No confusion, fever. Baseline level of function and weakness. Able to get to bedside chair with assistance of Medical Exam Vital signs and Labs for Last 24 Hours: Vital Signs Temp Pulse Pulse Resp BP Pulse Ox 08/31/22 15:35 98.6 F 72 17 126/61 97 08/31/22 11:47 98.2 F 70 17 130/61 95 08/31/22 08:00 98.3 F 70 16 112/58 L 95 08/31/22 03:22 98.4 F 70 18 117/58 L 96 08/30/22 20:00 80 08/31/22 00:00 98.8 F 74 18 115/54 L 96 08/30/22 20:00 98.4 F 70 16 135/64 97 Intake and Output 08/31/22 08/31/22 08/31/22 07:59 15:59 23:59 Intake Total 429 / 969 540 / 969 Output Total 2400 / 3850 1450 / 3850 Balance -1970 / -1 - / Intake: Intake, Oral Amount 120 / 660 540 / 660 Intake, Total IV Amount 309 / 309 Dextrose 10 % in Water 500 ml @ 309 / 309 25 mls/hr IV .Q20H [facility] Rx#: [id number] Output: Output, Urine Amount 2400 / 2400 0 / 2400 Output, Urine Amount (Catheter) 1450 / 1450 Huynh 1450 / 1450 Other: Number of Unmeasured Voids 0 0 Weight 101.718 kg Patient Weight 08/31/22 23:59 Weight 101.718 kg Laboratory Results - last 24 hr 08/30/22 18:00: POC Glucose 166 H 08/30/22 20:30: POC Glucose 186 H 08/31/22 00:28: POC Glucose 159 H 08/31/22 05:24: POC Glucose 108 08/31/22 06:44: WBC 5.1, RBC 2.60 L, Hgb 7.9 L, Hct 26.0 L, MCV 100.0 H, MCH 30.3, MCHC 30.3 L, RDW 17.1, Plt Count 170, MPV 9.1, Neut % (Auto) 60.6, Lymph % (Auto) 27.6, Ford % (Auto) 6.1, Eos % (Auto) 5.5, Baso % (Auto) 0.1, Neut # (Auto) 3.1, Lymph # (Auto) 1.4, Ford # (Auto) 0.3, Eos # (Auto) 0.3, Baso # (Auto) 0.0 08/31/22 06:44: Sodium 140, Potassium 3.5, Chloride 91 L, Carbon Dioxide 39 H, Anion Gap 13.5, BUN 27 H, Creatinine 1.40 H, Estimated Creat Clear 56, Estimated GFR 37 L, Est GFR ( Amer) 44 L, Glucose 97, Calcium 8.0 L, Phosphorus 3.8, Magnesium 2.2, Total Bilirubin 0.5, AST 22, ALT 12, Alkaline Phosphatase 93, Total Protein 5.7 L, Albumin 3.1 L, Globulin 2.6, Albumin/Globulin Ratio 1.2 08/31/22 11:56: POC Glucose 178 H 08/31/22 16:40: POC Glucose 136 H I & O for Labs for Last 24 Hours: Intake & Output 08/28/22 08/29/22 08/30/22 08/31/22 23:59 23:59 23:59 23:59 Intake Total 1420 / 1540 969 / 969 Output Total 3100 / 4300 3850 / 3850 Balance -1680 / -2760 -2881 / -2881 Weight 105.262 kg 104.78 kg 101.718 kg Constitutional: Present mild distress, morbidly obese, chronically ill appearing and cooperative Head: Present normocephalic Neck: Present normal inspection Respiratory: Present crackles and diminished air movement; Absent respiratory distress or wheezes Cardiac: Present Reg Rate and Rhythm, S1/S2 and No Murmur GI: Present soft and normal bowel sounds Extremities: Present edema Comment:: 1+ Skin: Present intact and dry Neuro: Present alert, awake, oriented x 3 and moves all extremities Assessment and Plan *Assessment and plan (1) Acute heart failure with preserved ejection fraction (HFpEF): Status: Acute Category: Medical Code(s): I50.31 - Acute diastolic (congestive) heart failure (2) EREN (acute kidney injury): Status: Acute Category: Medical Code(s): N17.9 - Acute kidney failure, unspecified (3) Anemia: Status: Acute Category: Medical Code(s): D64.9 - Anemia, unspecified (4) Hypertension: Status: Acute Category: Medical Code(s): I10 - Essential (primary) hypertension (5) Rheumatoid arthritis: Status:
[2022-08-31 21:42] LABS: POC Glucose,Bedside 179 (70-110)
[2022-09-01] VITALS (7 sets, daily range): BP systolic 120–146; BP diastolic 62–88; PULSE 72–87; RESP 16–19; TEMP 36.7–37.3; O2SAT 2–98; BMI 38.0
[2022-09-01 03:50] LABS: Hematocrit 30.2 % (37.0-47.0)
[2022-09-01 03:51] LABS: Hemoglobin 9.3 g/dL (12.2-16.2)
[2022-09-01 05:53] LABS: POC Glucose,Bedside 121 (70-110)
--- NOTE | 2022-09-01 06:34 | PC.NURSE ---
NO ACUTE CHANGES SINCE PREVIOUS ASSESSMENT. PT HAS RESTED WELL THIS SHIFT. PT RECEIVED ON UNIT OF PRBC AND TOLERATED THEM WELL. PT HAS C/O PAIN X2 THIS SHIFT AND WAS MEDICATED PER MAR FOR PAIN. MEDICATED X1 FOR NAUSEA. CALL NIELSON WITHIN REACH. AT BEDSIDE.
[2022-09-01 07:04] LABS: Basophils % 0.4 % (0.1-2.0); Eosinophils # 0.3 K/mm3 (0.0-0.4); Eosinophils % 5.2 % (0.1-12.0); Hematocrit 31.1 % (37.0-47.0); Hemoglobin 9.3 g/dL (12.2-16.2); Lymphocytes # 1.9 K/mm3 (0.7-4.5); Lymphocytes % 33.7 % (10-50); Mean Corpuscular HGB Conc 29.9 g/dL (31.8-35.4); Mean Corpuscular Hemoglobin 29.6 pg (27.0-31.2); Mean Platelet Volume 8.8 fl (7.4-10.4); Monocytes # 0.4 K/mm3 (0.1-1.0); Monocytes % 7.1 % (1.7-9.3); Neutrophils % 53.7 % (37.0-80.0); Platelet Count 172 K/mm3 (142-424); Red Blood Count 3.14 M/mm3 (4.20-5.40); Red Cell Distribution Width 17.4 % (11.5-17.5); White Blood Count 5.7 K/mm3 (4.8-10.8)
[2022-09-01 07:12] LABS: Alanine Aminotransferase 12 U/L (12-78); Albumin Level 3.1 g/dl (3.5-5.0); Albumin/Globulin Ratio 1.2 (1.1-1.8); Alkaline Phosphatase 106 U/L (38-126); Anion Gap 6.3 mEq/L (5-15); Aspartate Amino Transferase 20 U/L (14-36); Bilirubin,Total 0.7 mg/dl (0.2-1.3); Blood Urea Nitrogen 20 mg/dl (7-17); Calcium 8.2 mg/dl (8.4-10.2); Carbon Dioxide 40 mmol/L (22.0-30.0); Chloride 97 mmol/L (98-107); Creatinine Clearance Estimated 57 mL/min (50-200); Estimated Glomerular Filt Rate 37 ml/min (>60); GFR (African American) 44 ML/MIN (>60); Globulin 2.6 g/dL (1.3-3.2); Glucose 92 mg/dl (74-100); Potassium 3.3 mmoL/L (3.5-5.1); Sodium 140 mmol/L (136-145); Total Protein,Serum 5.7 g/dl (6.3-8.2)
--- NOTE | 2022-09-01 09:03 | ECG_ITS ---
APPROVED REPORT Exam: Resting ECG HR:69 bpm ECG Measurements Heart Rate 69 AXES QRSd 172 QRS -57 QT 457 T 113 QTc 477 Conclusion ELECTRONIC VENTRICULAR PACEMAKER ABNORMAL RHYTHM ECG UNCONFIRMED REPORT Electronically signed by : Jimy Conley MD 09/01/2022 13:09:46
--- NOTE | 2022-09-01 09:05 | SW/DCPLANNER ---
Addendum entered by Arianne Prescott 09/02/22 13:07: Patient stated that she will return home with home health services and assistance from her . I have updated Kalpana balderas/ Devon Vann regarding plan. Patient information/order has been faxed to [facility]: Disha sherrie/ pending sale to [facility] stated that services will begin tomorrow 09/03/22. Original Note: I spoke with this patient regarding plans once medically stable for discharge. Patient stated that she resides at home with her and does not currently have any services at home. I discussed with patient PT evaluation and placement at time of discharge. Patient expressed that she would need to have a discussion with her but is not opposed to looking into SNF level of care at [facility]. Patient stated that [facility] is the only facility she would consider for placement. Patient information has been faxed to Kalpana Vann at this time. Discharge date is unknown at this time.
[2022-09-01 12:18] LABS: POC Glucose,Bedside 111 (70-110)
--- NOTE | 2022-09-01 15:34 | EXP.ACUTE.PN ---
Subjective *Date: 09/01/22 *Time: 15:34 Interval history: Patient feels much better today. Breathing more comfortably. Denies cough, shortness of breath, chest pain, nausea or vomiting. Has had significant urine output. Continues to diurese well. At this point requesting placement at [place] for care home and therapy if possible. Case management assisting with placement. at bedside, updated on plan Medical Exam Vital signs and Labs for Last 24 Hours: Vital Signs Temp Pulse Pulse Resp BP BP Pulse Ox 09/01/22 12:00 98.1 F 87 19 145/85 H 97 09/01/22 08:00 98.1 F 74 18 136/66 93 L 09/01/22 04:00 98.4 F 72 18 120/62 95 09/01/22 00:45 99.1 F 76 18 146/76 H 93 L 08/31/22 23:45 98.9 F 73 18 154/65 H 95 08/31/22 23:15 99.0 F 72 16 154/90 H 93 L 08/31/22 22:15 99.1 F 71 16 162/85 H 94 L 08/31/22 21:15 98.9 F 72 18 160/92 H 97 08/31/22 21:00 98.9 F 70 18 155/77 H 95 08/31/22 20:45 98.9 F 74 18 142/86 H 97 08/31/22 20:30 98.7 F 69 18 138/67 96 08/31/22 20:25 98.8 F 72 18 131/78 97 08/31/22 20:20 99.3 F 73 16 138/72 96 08/31/22 20:15 99.0 F 70 16 142/66 H 96 08/31/22 19:58 99.0 F 77 18 132/70 98 08/31/22 19:51 99.1 F 70 18 123/64 95 08/31/22 19:06 08/31/22 15:35 98.6 F 72 17 126/61 97 FiO2 09/01/22 12:00 09/01/22 08:00 09/01/22 04:00 09/01/22 00:45 08/31/22 23:45 08/31/22 23:15 08/31/22 22:15 08/31/22 21:15 08/31/22 21:00 08/31/22 20:45 08/31/22 20:30 08/31/22 20:25 08/31/22 20:20 08/31/22 20:15 08/31/22 19:58 08/31/22 19:51 08/31/22 19:06 28 08/31/22 15:35 Intake and Output 08/31/22 09/01/22 09/01/22 23:59 07:59 15:59 Intake Total 370 / 1339 780 / 780 Output Total 650 / 4500 1300 / 1700 400 / 1700 Balance -280 / -3161 -1300 / -920 380 / -920 Intake: Intake, Oral Amount 120 / 780 780 / 780 Intake (Blood Product) Amt 250 / 250 Red Blood Cells Unit 250 / 250 [id number] Output: Output, Urine Amount 650 / 3050 1300 / 1700 400 / 1700 Other: Number of Unmeasured Voids 0 0 0 Weight 103.532 kg Patient Weight 09/01/22 23:59 Weight 103.532 kg Laboratory Results - last 24 hr 08/31/22 06:44: Blood Type Confirm B Positive 08/31/22 16:40: POC Glucose 136 H 08/31/22 18:12: Blood Type B Positive, Antibody Screen Negative, Crossmatch (AHG) See Detail 08/31/22 20:43: POC Glucose 179 H 09/01/22 03:36: Hgb 9.3 L D, Hct 30.2 L 09/01/22 05:40: POC Glucose 121 H 09/01/22 06:50: WBC 5.7, RBC 3.14 L, Hgb 9.3 L, Hct 31.1 L, MCV 99.0, MCH 29.6, MCHC 29.9 L, RDW 17.4, Plt Count 172, MPV 8.8, Neut % (Auto) 53.7, Lymph % (Auto) 33.7, Weston % (Auto) 7.1, Eos % (Auto) 5.2, Baso % (Auto) 0.4, Neut # (Auto) 3.0, Lymph # (Auto) 1.9, Weston # (Auto) 0.4, Eos # (Auto) 0.3, Baso # (Auto) 0.0 09/01/22 06:50: Sodium 140, Potassium 3.3 L, Chloride 97 L, Carbon Dioxide 40 H, Anion Gap 6.3, BUN 20 H D, Creatinine 1.40 H, Estimated Creat Clear 57, Estimated GFR 37 L, Est GFR ( Amer) 44 L, Glucose 92, Calcium 8.2 L, Total Bilirubin 0.7, AST 20, ALT 12, Alkaline Phosphatase 106, Total Protein 5.7 L, Albumin 3.1 L, Globulin 2.6, Albumin/Globulin Ratio 1.2 09/01/22 12:09: POC Glucose 111 H I & O for Labs for Last 24 Hours: Intake & Output 08/29/22 08/30/22 08/31/22 09/01/22 23:59 23:59 23:59 23:59 Intake Total 1420 / 1540 1339 / 1339 780 / 780 Output Total 3100 / 4300 4500 / 4500 1700 / 1700 Balance -1680 / -2760 -3161 / -3161 -920 / -920 Weight 105.262 kg 104.78 kg 101.718 kg 103.532 kg Constitutional: Present no acute distress, morbidly obese, chronically ill appearing and cooperative Head: Present normocephalic ENT: Present normal exam Neck: Present normal inspection Respiratory: Present prolonged expiratory phase and diminished air movement; Absent respiratory distress, wheezes or crackles Cardiac:
--- NOTE | 2022-09-01 17:38 | CA_ITS ---
APPROVED REPORT EXAM: Comprehensive 2D, Doppler, and color-flow Echocardiogram Television Technician: Angelina North CRT Ht: 5 ft 4 in Wt: 224lbs BSA: 2.05 BP: 110/70 mmHg Indications: Shortness of Breath, Atrial Fibrillation, Diabetes, Obesity, Peripheral Edema, Hypertension/HDD, home O2, DNR, HX COVID N FLU, CHF 2D Dimensions LVOT 1.87 cm (M/F) 1.5-2.5 LA Volume 42.30 mL LA Volume Index 20.10 mL/m2 (M/F) 16-34 M-Mode Dimensions RVDd 2.43 cm (0.9-2.6) LA Diam 3.31 cm (1.9-4.0) LVDd 5.54 cm (3.5-5.7) Ao Diam 4.23 cm (2.0-3.7) LVDs 4.38 cm (3.5-5.7) IVSd 1.46 cm (0.6-1.1) PWd 0.91 cm (0.6-1.1) EF (Teich) 42.10% FS 20.90% EDV (Teich) 149.90 mL TAPSE 1.60 (<1.7) ESV (Teich) 86.80 mL LV Diastology E Decel Time 127.00 (160-240 msec) E/A Ratio 2.93 MED E' 2.00 (< 7 cm/sec) MED A' 4.70 cm/s E'/MED E' Ratio 62.60 (>14) LAT E' 9.50 (<10 cm/sec) LAT A' 3.00 cm/s E/LAT E' Ratio 13.18 (>14) Aortic Valve AO Peak GR. 6.50 mmHg Mitral Valve MV A Velocity 43.00 (40-130 cm/s) E/A Ratio 2.93 MV Decel. Time 127.00 (160-240 ms) Pulmonary Valve PV Peak Velocity 137.00 (50-150 cm/s) Tricuspid Valve TR P. Velocity 273.00 cm/s RAP Estimate 10.00 mmHg RVSP 39.90 mmHg Left Ventricle Left atrium is mildly enlarged, left ventricle is normal size mild concentric left ventricular hypertrophy, estimated ejection fraction 40 to 45%, there is abnormal septal motion, diastolic parameters are inconclusive. Right Ventricle Right atrium and right ventricle are mildly enlarged with normal contractility, pacemaker lead seen in right atrium and right ventricle. Aortic Valve Aortic valve is minimally thickened and calcified without aortic stenosis or aortic insufficiency. Mitral Valve Mitral valve leaflets are minimally thickened, there is mild mitral regurgitation. Tricuspid Valve Tricuspid valve is grossly normal, there is mild tricuspid regurgitation calculated right ventricular systolic pressure is 32 mmHg. Pulmonic Valve Pulmonic valve is poorly visualized. Great Vessels Aortic root is normal size. Inferior vena cava is poorly visualized. Pericardium No significant pericardial effusion noted. Conclusion 1. Mild biatrial enlargement, normal left ventricular size, mild concentric left ventricular hypertrophy, estimated ejection fraction 40 to 45%, there is abnormal septal motion, diastolic parameters are inconclusive. 2. Thickened and calcified aortic valve without aortic stenosis or aortic insufficiency. 3. Mild mitral and tricuspid regurgitation, calculated right ventricular systolic pressure 32 mmHg. 4. No significant pericardial effusion noted. 5. Inferior vena cava is poorly visualized. Electronically signed by : Eligio Chi MD 09/01/2022 13:03:00
[2022-09-01 23:16] LABS: POC Glucose,Bedside 188 (70-110)
[2022-09-02] VITALS: O2SAT 94
[2022-09-02 04:00] VITALS: BP 112/59; PULSE 75; RESP 16; TEMP 36.7; O2SAT 98
--- NOTE | 2022-09-02 05:16 | PC.NURSE ---
Pt has c/o chronic pain 2x and nausea 1x t/ shift. Medication administered per DEC. Pt slept well t/o night. Tolerating 2 L nc well with sats >90%. Pt able to ambulate to BSC with 1x assist. Call light within reach. at bedside.
[2022-09-02 06:30] LABS: POC Glucose,Bedside 177 (70-110)
[2022-09-02 06:51] LABS: POC Glucose,Bedside 94 (70-110)
[2022-09-02 08:00] VITALS: BP 132/73; PULSE 71; RESP 20; TEMP 37.1; O2SAT 95
--- NOTE | 2022-09-02 08:06 | PC.NURSE ---
Pt c/o not having fentanyl patch that pt uses at home. Hospitalist ordered home dose patch of 37.5 mcg. Dose not available in [facility]. Consulted [facility] and asked rafa if i could cut a 75mcg patch in half and she stated that I could. Patch was pulled from [facility] and cut in half, verified by Eloisa horn. When going to place on pt, Rafa from [facility] called to say she had made a mistake and the patch was not able to be cut in half. Patch was wasted into biohazard box, verified by Eloisa. When telling pt we did not have her dosage but could apply a 25mcg patch for the time being, pt states she will just wait to apply her own once she is d/alexandro.
[2022-09-02 08:36] LABS: Basophils % 0.2 % (0.1-2.0); Eosinophils # 0.4 K/mm3 (0.0-0.4); Hematocrit 34.5 % (37.0-47.0); Hemoglobin 10.2 g/dL (12.2-16.2); Lymphocytes # 1.9 K/mm3 (0.7-4.5); Lymphocytes % 26.4 % (10-50); Mean Corpuscular HGB Conc 29.6 g/dL (31.8-35.4); Mean Corpuscular Hemoglobin 30.1 pg (27.0-31.2); Mean Corpuscular Volume 101.7 fl (81-99); Mean Platelet Volume 9.2 fl (7.4-10.4); Monocytes # 0.3 K/mm3 (0.1-1.0); Monocytes % 4.7 % (1.7-9.3); Neutrophils # 4.5 K/mm3 (1.8-7.8); Neutrophils % 63.8 % (37.0-80.0); Platelet Count 192 K/mm3 (142-424); Red Blood Count 3.39 M/mm3 (4.20-5.40); Red Cell Distribution Width 17.2 % (11.5-17.5)
[2022-09-02 08:46] LABS: Chloride 98 mmol/L (98-107); Potassium 3.3 mmoL/L (3.5-5.1); Sodium 139 mmol/L (136-145)
[2022-09-02 08:48] LABS: Alanine Aminotransferase 17 U/L (12-78); Aspartate Amino Transferase 29 U/L (14-36); Blood Urea Nitrogen 21 mg/dl (7-17); Creatinine Clearance Estimated 61 mL/min (50-200); Estimated Glomerular Filt Rate 40 ml/min (>60); GFR (African American) 48 ML/MIN (>60)
[2022-09-02 08:49] LABS: Albumin Level 3.4 g/dl (3.5-5.0); Albumin/Globulin Ratio 1.3 (1.1-1.8); Alkaline Phosphatase 95 U/L (38-126); Anion Gap 5.3 mEq/L (5-15); Bilirubin,Total 0.6 mg/dl (0.2-1.3); Calcium 8.6 mg/dl (8.4-10.2); Carbon Dioxide 39 mmol/L (22.0-30.0); Globulin 2.7 g/dL (1.3-3.2); Glucose 159 mg/dl (74-100); Total Protein,Serum 6.1 g/dl (6.3-8.2)
[2022-09-02 11:45] LABS: POC Glucose,Bedside 250 (70-110)
[2022-09-02 11:49] VITALS: BP 132/61; PULSE 74; RESP 17; TEMP 36.6; O2SAT 96
--- NOTE | 2022-09-02 12:10 | EXP.DC.SUM ---
General Admission date:: 08/29/22 Discharge date: 09/02/22 HPI HPI HPI: Patient is a 76-year-old female who has multiple comorbidities who recently was treated for COVID-pneumonia and influenza who presents to the emergency department due to progressive dyspnea on exertion, dyspnea at rest, orthopnea, weight gain and swelling for the past week. endorses decreased urine output. Has also been having 3-week history of diarrhea and vomiting. The emergency department evaluation demonstrated pulmonary edema on chest x-ray, patient has an EREN, oxygen requirement, elevated brain natretic peptide. While in the emergency department patient had an episode of hypoglycemia secondary to insulin administration by despite being n.p.o. patient was admitted to medicine service. Hospital Course Hospital Course Hospital Course: Patient is a 76-year-old female who presents with progressively worsening dyspnea weight gain and lower extremity edema.? Admitted for CHF exacerbation. Showing improvement on diuresis.? Stable on 2 L at this time.? Feels better this morning.? Initially considering placement, at this time patient just wants to go home. Stable at baseline level of function to discharge home with home health. Problems addressed as follows: Congestive heart failure, Combined -Echo ordered during admission. Results as follows: 1.? Mild biatrial enlargement, normal left ventricular size, mild concentric left ventricular hypertrophy, estimated ejection fraction 40 to 45%, there is abnormal septal motion, diastolic parameters are inconclusive. 2.? Thickened and calcified aortic valve without aortic stenosis or aortic insufficiency. 3.? Mild mitral and tricuspid regurgitation, calculated right ventricular systolic pressure 32 mmHg. 4.? No significant pericardial effusion noted. 5.? Inferior vena cava is poorly visualized. -Started on diuretic due to volume overload and CHF exacerbation. Responded well. Plan to continue oral Lasix at increased dose on discharge. Plan to continue beta-caroline and initiated low-dose VENUS inhibitor given hypertension and heart failure. Continue Jardiance for heart failure and diabetes. Patient's blood pressure stable, tolerating current regimen. Improvement and kidney function during hospitalization. Stable for discharge home, will need close follow-up and further adjustment in the outpatient setting. Will refer to home health to assist with medication management at home. Discussed prepackaging meds with , he would like to discuss this with her PCP. Recommend further evaluation and consideration of prepackaged medications through her outpatient pharmacy. Type 2 diabetes -During admission treated with Lantus 30 units nightly and sliding scale insulin. Daily required no more than 4 units of mealtime/sliding scale insulin. Recommend at this time for simplicity to continue with once nightly Lantus 30 units and oral Jardiance as above. Plan to simplify regimen for home given difficulty in monitoring and with compliance.? Last A1c at goal less than 8 earlier this month on last admission. EREN: Present on admission, improved with diuresis. Creatinine on day of discharge 1.3, this is her best creatinine in the past month. Would benefit from repeat labs in a week Macrocytic anemia -Present on admission, recommend daily vitamin. Did receive a transfusion on admission. Hemoglobin remained stable after transfusion above 9 Chronic medical problems A. fib continue Eliquis Hyperlipidemia continue statin Neuropathy continue gabapentin Extensive discussion about medication regimen, recommended to and patient that they adhere to regimen per rec at time of discharge until they have follow-up for further discussion with PCP. Discharged home with home health to assist with therapy and medication management Exam Data for Last 24 hours Vital signs and Labs for Last 24 Hours: Temp Pulse Resp BP Pulse Ox FiO2
--- NOTE | 2022-09-02 12:50 | P.CONPHA_ITS ---
Pharmacy Intervention Comments: Discharge counseling completed at bedside with the patient and her daughter. Discussed new medications (increased escitalopram dose, increased furosemide dose, lisinopril), continued medications, and discontinued medications (indomethacin and sliding scale insulin). Overviewed indications and possible s jelly effects/mitigation strategies of each new medication. Patient verbalized understanding and has no questions or concerns at this time.
--- NOTE | 2022-09-03 14:43 | CARE MANAGER ---
Spoke with patient for post-discharge phone interview, she states that she is doing well and has no issues at this time.
== END 2022-09-02 14:57 | disposition home health service (06) ==
LOC: ER 17:43 → 2ND 20:25
PROVIDERS: Admitting Provider Student in an Organized Health Care Education/Training Program; Emergency Provider Emergency Medicine; PCP Internal Medicine; Visit Provider Internal Medicine Adolescent Medicine
DX: I50.33 Acute on chronic diastolic (congestive) heart failure (principal); I11.0 Hypertensive heart disease with heart failure; N17.9 Acute kidney failure, unspecified; D64.9 Anemia, unspecified; M06.9 Rheumatoid arthritis, unspecified; F11.90 Opioid use, unspecified, uncomplicated; Z79.899 Other long term (current) drug therapy; G47.30 Sleep apnea, unspecified; G89.4 Chronic pain syndrome; M47.816 Spondylosis without myelopathy or radiculopathy, lumbar region; Z99.81 Dependence on supplemental oxygen; E11.9 Type 2 diabetes mellitus without complications; Z79.4 Long term (current) use of insulin; I48.91 Unspecified atrial fibrillation; Z79.01 Long term (current) use of anticoagulants; Z88.8 Allergy status to other drugs, medicaments and biological substances; Z86.16 Personal history of COVID-19
CPT/HCPCS: G0378; 36415; 71045; 80053; 81001; 82962; 83605; 83735; 83880; 84100; 84484; 85014; 85018; 85025; 85610; 86850; 93005; 93306; 94761; 97110; 97162; 97166; 97530; 99285; C9803; J2405; P9016; U0003; U0005

== ENCOUNTER → 2022-09-29 08:31 | Outpatient (CLI) | payer MEDICARE, SELFPAY ==
--- NOTE | 2022-09-29 08:42 | FL_ITS ---
FINAL REPORT CLINICAL HISTORY: ABD PAIN,CHRONIC CHF unable to stand Fluoro time: 1:00min FINDINGS: UPPER GI EXAM HISTORY: Epigastric pain. PROCEDURE: The patient ingested barium. Effervescent crystals were also administered. Spot and overhead films were obtained. FINDINGS: The esophagus is normal. There is no hiatal hernia. There is gastroesophageal reflux to the level of the cervical esophagus. Peristalsis is normal. The rugal fold pattern of the stomach is normal. The duodenal bulb is normal. IMPRESSION: Marked gastroesophageal reflux. Films reviewed , interpreted and dictated by Dr. Schneider Transcribed by Mayco Chavez PA-C. Reviewed, Interpreted and Dictated by Samuel Schneider III, MD Transcribed by INGRID Joe Authenticated and [facility]
--- NOTE | 2022-09-29 08:43 | US_ITS ---
FINAL REPORT CLINICAL HISTORY: ABD PAIN,CHRONIC CHF,STOMACH PAIN FINDINGS: Sonographic images of the abdomen were obtained. The liver has an unremarkable appearance with normal echogenicity. The gallbladder is absent. The common hepatic duct measures 7 mm, which is normal for age. Limited images of the pancreas are unremarkable. The spleen size is normal. The right kidney measures 9.7 cm in length. The left kidney measures 10.3 cm in length. There is normal renal echogenicity. There is no evidence of hydronephrosis. The aorta is obscured. Limited images of the inferior vena cava are unremarkable. IMPRESSION: Status post cholecystectomy, otherwise unremarkable. Reviewed, Interpreted and Dictated by Samuel Schneider III, MD Transcribed by Marti Jonas Authenticated and [facility]
[2022-09-30 12:10] LABS: H. pylori Breath Test Negative (Negative)
== END ==
LOC: RAD 08:31
PROVIDERS: PCP Internal Medicine Cardiovascular Disease; Visit Provider Internal Medicine
DX: R10.9 Unspecified abdominal pain (principal); I50.9 Heart failure, unspecified; J45.909 Unspecified asthma, uncomplicated
CPT/HCPCS: 74240; 76700; 83013

== ENCOUNTER → 2022-11-01 15:19 | Outpatient (CLI) | payer MEDICARE, SELFPAY ==
--- NOTE | 2022-11-01 15:25 | XR_ITS ---
FINAL REPORT CLINICAL HISTORY: R SHOULDER PAIN FINDINGS: RIGHT SHOULDER 3 views of the right shoulder were obtained. There is no acute fracture or dislocation. There are mild degenerative changes of the acromioclavicular and glenohumeral joints. There is no soft tissue abnormality. IMPRESSION: Mild degenerative changes no acute bony abnormality. Reviewed, Interpreted and Dictated by Samuel Schneider III, MD Transcribed by Sandy Scott Authenticated and [facility]
== END ==
PROVIDERS: PCP Internal Medicine; Visit Provider Internal Medicine
DX: M25.511 Pain in right shoulder (principal)
CPT/HCPCS: 73030

== ENCOUNTER → 2022-11-01 17:12 | Outpatient (CLI) | payer MEDICARE, SELFPAY ==
[2022-11-01 17:53] LABS: Basophils % 0.5 % (0.1-2.0); Eosinophils # 0.5 K/mm3 (0.0-0.4); Eosinophils % 6.4 % (0.1-12.0); Hematocrit 31.8 % (37.0-47.0); Lymphocytes # 1.5 K/mm3 (0.7-4.5); Lymphocytes % 19.6 % (10-50); Mean Corpuscular HGB Conc 31.5 g/dL (31.8-35.4); Mean Corpuscular Hemoglobin 30.3 pg (27.0-31.2); Mean Corpuscular Volume 96.1 fl (81-99); Mean Platelet Volume 9.4 fl (7.4-10.4); Monocytes # 0.3 K/mm3 (0.1-1.0); Monocytes % 4.3 % (1.7-9.3); Neutrophils # 5.3 K/mm3 (1.8-7.8); Neutrophils % 69.3 % (37.0-80.0); Platelet Count 190 K/mm3 (142-424); Red Blood Count 3.31 M/mm3 (4.20-5.40); Red Cell Distribution Width 15.9 % (11.5-17.5); White Blood Count 7.6 K/mm3 (4.8-10.8)
[2022-11-01 18:29] LABS: Alanine Aminotransferase 15 U/L (12-78); Albumin Level 3.8 g/dl (3.5-5.0); Albumin/Globulin Ratio 1.4 (1.1-1.8); Alkaline Phosphatase 97 U/L (38-126); Anion Gap 12.6 mEq/L (5-15); Aspartate Amino Transferase 26 U/L (14-36); Bilirubin,Total 0.5 mg/dl (0.2-1.3); Blood Urea Nitrogen 27 mg/dl (7-17); Calcium 8.3 mg/dl (8.4-10.2); Carbon Dioxide 36 mmol/L (22.0-30.0); Chloride 98 mmol/L (98-107); Chol/HDL Ratio 2.7 (1-3.5); Cholesterol 110 mg/dl (140-200); Estimated Glomerular Filt Rate 31 ml/min (>60); GFR (African American) 38 ML/MIN (>60); Globulin 2.8 g/dL (1.3-3.2); Glucose 164 mg/dl (74-100); HDL Cholesterol 41 mg/dl (40-60); Potassium 4.6 mmoL/L (3.5-5.1); Sodium 142 mmol/L (136-145); Total Protein,Serum 6.6 g/dl (6.3-8.2); Triglycerides 107 mg/dl (30-150); VLDL Cholesterol 21 mg/dL (0-40)
[2022-11-01 18:46] LABS: Direct LDL Cholesterol 49.45 mg/dL (100-129)
[2022-11-01 19:17] LABS: Hemoglobin A1C 6.3 % (4.0-6.0)
== END ==
LOC: LAB.DROPOF 17:13
PROVIDERS: PCP Internal Medicine; Visit Provider Internal Medicine
DX: E11.42 Type 2 diabetes mellitus with diabetic polyneuropathy (principal); I48.91 Unspecified atrial fibrillation; I11.0 Hypertensive heart disease with heart failure; I50.32 Chronic diastolic (congestive) heart failure; K21.00 Gastro-esophageal reflux disease with esophagitis, without bleeding; M05.9 Rheumatoid arthritis with rheumatoid factor, unspecified; M17.0 Bilateral primary osteoarthritis of knee; Z79.4 Long term (current) use of insulin
CPT/HCPCS: 73030; 80053; 80061; 83036; 85025

== ENCOUNTER → 2022-11-16 15:53 | Outpatient (CLI) | payer MEDICARE, SELFPAY ==
--- NOTE | 2022-11-16 16:03 | XR_ITS ---
FINAL REPORT CLINICAL HISTORY: SHOULD PAIN. Right shoulder pain, she falls frequently. Patient was unable to stand for exam. Done with her in her wheelchair. COMPARISON: 11/01/2022 FINDINGS: RIGHT SHOULDER 3 views of the right shoulder were obtained. There is no acute fracture or dislocation. There is degenerative disease.. There is no soft tissue abnormality. IMPRESSION: Degenerative disease with no acute bony abnormality. Reviewed, Interpreted and Dictated by Helga Scott MD Transcribed by Sandy Scott Authenticated and [facility]
[2022-11-16 20:28] LABS: Amphetamine/Metha Screen,Urine Negative ng/ml (<1000); Barbiturates Screen,Urine Negative ng/ml (<200); Benzodiazepines Screen,Urine Positive ng/ml (<200); Cannabinoid Screen,Urine Negative ng/ml (<50); Cocaine Screen,Urine Negative ng/ml (<300); Methadone Screen,Urine Negative ng/ml (<300); Opiate Screen,Urine Positive ng/ml (<300); Phencyclidine Screen,Urine Negative ng/ml (<25)
[2022-11-24 11:22] LABS: Oxycodone Positive (.); Oxycodone Confirm 2158 ng/mL (Cutoff=100); Oxymorphone Positive (.); Oxymorphone Confirm 2042 ng/mL (Cutoff=100)
[2022-12-02 11:22] LABS: Alfentanil NEGATIVE; Fentanyl 10.3 ng/mL; Norfentanyl 123.9 ng/mL; Sufentanil NEGATIVE
[2022-12-02 11:23] LABS: Acetyl Fentanyl NEGATIVE; Acetyl Norfentanyl NEGATIVE; Norsufentanil NEGATIVE
== END ==
PROVIDERS: PCP Internal Medicine; Visit Provider Internal Medicine
DX: F11.20 Opioid dependence, uncomplicated (principal); M25.511 Pain in right shoulder; W19.XXXA Unspecified fall, initial encounter
CPT/HCPCS: 73030; 80305; 80365

== ENCOUNTER → 2022-11-29 16:44 | Outpatient (CLI) | payer MEDICARE, SELFPAY ==
--- NOTE | 2022-11-29 17:29 | XR_ITS ---
PROCEDURE INFORMATION: Exam: XR Left Hand Exam date and time: 11/29/2022 5:32 PM Age: 77 years old Clinical indication: Pain; Hand; Bilateral; Additional info: Joint pain TECHNIQUE: Imaging protocol: Radiologic exam of the left hand. Views: 3 or more views. COMPARISON: No relevant prior studies available. FINDINGS: Bones/joints: No fractures or dislocations. Mild joint space narrowing and bone hypertrophy affect the DIP joints, of the 5th MCP joint, and the trapezium 1st metacarpal joint. Soft tissue swelling is present dorsal to the distal radius and ulna. Soft tissues: No radiopaque foreign bodies. Vasculature: Arterial calcifications. IMPRESSION: 1. No fractures or dislocations in the left hand and wrist. If occult fracture is clinically suspected, splinting and repeat radiographs or MRI would be suggested. 2. 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 3. Soft tissue swelling dorsal to the distal left radius and ulna.
--- NOTE | 2022-11-29 17:29 | XR_ITS ---
PROCEDURE INFORMATION: Exam: XR Right Hand Exam date and time: 11/29/2022 5:32 PM Age: 77 years old Clinical indication: Pain; Hand; Bilateral; Additional info: Jooint pain TECHNIQUE: Imaging protocol: Radiologic exam of the right hand. Views: 3 or more views. COMPARISON: No relevant prior studies available. FINDINGS: Bones/joints: No fractures or dislocations. Mild joint space narrowing and bone hypertrophy affect the DIP joints and trapezium 1st metacarpal joint. Soft tissues: No soft tissue gas, radiopaque foreign bodies, or masses. Vasculature: Arterial calcifications are present. IMPRESSION: 1. No fractures or dislocations in the right hand. 2. Mild osteoarthritis in the right hand. The
[2022-11-29 18:23] LABS: Basophils # 0.1 K/mm3 (0-0.2); Basophils % 0.6 % (0.1-2.0); Eosinophils # 0.1 K/mm3 (0.0-0.4); Eosinophils % 1.2 % (0.1-12.0); Hematocrit 35.1 % (37.0-47.0); Hemoglobin 11.1 g/dL (12.2-16.2); Lymphocytes # 2.2 K/mm3 (0.7-4.5); Lymphocytes % 19.2 % (10-50); Mean Corpuscular HGB Conc 31.6 g/dL (31.8-35.4); Mean Corpuscular Hemoglobin 30.2 pg (27.0-31.2); Mean Corpuscular Volume 95.3 fl (81-99); Monocytes # 0.5 K/mm3 (0.1-1.0); Monocytes % 4.6 % (1.7-9.3); Neutrophils # 8.6 K/mm3 (1.8-7.8); Neutrophils % 74.3 % (37.0-80.0); Platelet Count 239 K/mm3 (142-424); Red Blood Count 3.68 M/mm3 (4.20-5.40); Red Cell Distribution Width 15.7 % (11.5-17.5); White Blood Count 11.6 K/mm3 (4.8-10.8)
[2022-11-29 18:27] LABS: Chloride 100 mmol/L (98-107); Potassium 5.5 mmoL/L (3.5-5.1); Sodium 141 mmol/L (136-145)
[2022-11-29 18:30] LABS: Alanine Aminotransferase 15 U/L (12-78); Albumin Level 3.9 g/dl (3.5-5.0); Albumin/Globulin Ratio 1.4 (1.1-1.8); Alkaline Phosphatase 94 U/L (38-126); Anion Gap 11.5 mEq/L (5-15); Aspartate Amino Transferase 20 U/L (14-36); Bilirubin,Total 0.3 mg/dl (0.2-1.3); Blood Urea Nitrogen 52 mg/dl (7-17); Calcium 8.6 mg/dl (8.4-10.2); Carbon Dioxide 35 mmol/L (22.0-30.0); Estimated Glomerular Filt Rate 24 ml/min (>60); GFR (African American) 29 ML/MIN (>60); Globulin 2.8 g/dL (1.3-3.2); Glucose 146 mg/dl (74-100); Total Protein,Serum 6.7 g/dl (6.3-8.2)
[2022-11-29 18:35] LABS: C-Reactive Protein 0.5 mg/L (0-4)
[2022-11-29 20:26] LABS: Erythrocyte Sedimentation Rate 64 mm/hr (0-30)
[2022-12-01 12:25] LABS: RA Latex Turbid. <10.0 IU/mL (<14.0)
[2022-12-01 13:12] LABS: Anti-Cyclic Citrullinated Pept 0 units (0-19)
== END ==
LOC: LAB 16:46
PROVIDERS: PCP Internal Medicine; Visit Provider Internal Medicine Rheumatology
DX: M06.4 Inflammatory polyarthropathy (principal); M79.641 Pain in right hand; M79.642 Pain in left hand; Z79.899 Other long term (current) drug therapy
CPT/HCPCS: 36415; 73130; 80053; 85025; 85651; 86140; 86200; 86431

== ENCOUNTER → 2022-12-13 17:14 | Outpatient (CLI) | payer MEDICARE, SELFPAY ==
[2022-12-13 19:12] LABS: Chloride 99 mmol/L (98-107); Sodium 138 mmol/L (136-145)
[2022-12-13 19:13] LABS: Potassium 5.5 mmoL/L (3.5-5.1)
[2022-12-13 19:15] LABS: Blood Urea Nitrogen 36 mg/dl (7-17); Estimated Glomerular Filt Rate 34 ml/min (>60); GFR (African American) 41 ML/MIN (>60)
[2022-12-13 19:16] LABS: Anion Gap 10.5 mEq/L (5-15); Calcium 8.2 mg/dl (8.4-10.2); Carbon Dioxide 34 mmol/L (22.0-30.0); Glucose 206 mg/dl (74-100)
== END ==
PROVIDERS: PCP Internal Medicine; Visit Provider Internal Medicine
DX: I50.32 Chronic diastolic (congestive) heart failure (principal); I48.0 Paroxysmal atrial fibrillation; M05.9 Rheumatoid arthritis with rheumatoid factor, unspecified; I10 Essential (primary) hypertension; E11.42 Type 2 diabetes mellitus with diabetic polyneuropathy; N17.9 Acute kidney failure, unspecified; N18.9 Chronic kidney disease, unspecified; Z51.81 Encounter for therapeutic drug level monitoring; Z79.01 Long term (current) use of anticoagulants
CPT/HCPCS: 80048

== ENCOUNTER → 2022-12-30 09:25 | Outpatient (CLI) | payer MEDICARE, SELFPAY ==
--- NOTE | 2022-12-30 | CA_ITS ---
APPROVED REPORT EXAM: Comprehensive 2D, Doppler, and color-flow Echocardiogram Data Visualization Developer: Yancy Richards RT(R) Ht: 5 ft 4 in Wt: 224lbs BSA: 2.05 BP: 146/74 mmHg Indications: AFIB, pacemaker, CHF, COPD, O2 dependent, HTN, edema, DM, SOB, GARCÍA, obesity, hyperlipidemia 2D Dimensions LVOT 2.02 cm (M/F) 1.5-2.5 LA Volume 51.60 mL LA Volume Index 25.17 mL/m2 (M/F) 16-34 M-Mode Dimensions RVDd 3.30 cm (0.9-2.6) LA Diam 4.62 cm (1.9-4.0) LVDd 5.18 cm (3.5-5.7) Ao Diam 2.91 cm (2.0-3.7) LVDs 4.15 cm (3.5-5.7) IVSd 1.25 cm (0.6-1.1) PWd 0.98 cm (0.6-1.1) EF (Teich) 40.50% FS 19.90% EDV (Teich) 128.40 mL ESV (Teich) 76.40 mL LV Diastology E Decel Time 150.00 (160-240 msec) E/A Ratio 6.4 MED E' 5.70 (< 7 cm/sec) E'/MED E' Ratio 18.93 (>14) LAT E' 10.50 (<10 cm/sec) E/LAT E' Ratio 10.28 (>14) Mitral Valve MV E Max Donnie. 108.00 (40-130 cm/s) MV A Velocity 17.00 (40-130 cm/s) E/A Ratio 6.42 MV Decel. Time 150.00 (160-240 ms) MV PHT 44.00 ms Tricuspid Valve TR P. Velocity 339.00 cm/s RAP Estimate 15.00 mmHg RVSP 60.80 mmHg Left Ventricle Technically difficult study because of the patient factors and poor acoustic windows. Left atrium is mildly enlarged, left ventricle is normal size mild concentric left ventricular hypertrophy, estimated ejection fraction 45% with no obvious regional wall motion abnormality, endocardial cells are poorly visualized. Right Ventricle Right atrium and right ventricle are mildly enlarged with normal contractility, pacemaker leads in the right ventricle. Aortic Valve Aortic valve is thickened and calcified without Doppler evidence of aortic stenosis or aortic insufficiency. Mitral Valve Mitral valve leaflets are minimally thickened, there is mild mitral regurgitation. Tricuspid Valve Normal, there is mild tricuspid regurgitation, calculated right ventricular systolic pressure 60 mmHg. Pulmonic Valve Pulmonic valve is poorly visualized. Great Vessels Aortic root is normal size. Inferior vena cava is mildly dilated with less than 50% inspiratory collapse. Pericardium No significant pericardial effusion noted. Conclusion 1. Biatrial enlargement, normal left ventricular size, mild concentric left ventricular hypertrophy, estimated ejection fraction 45% with no regional wall motion abnormality, diastolic parameters are inconclusive. 2. Mildly enlarged right ventricle with normal contractility. 3. Mild mitral and tricuspid regurgitation, calculated right ventricular systolic pressure 60 mmHg. 4. No significant pericardial effusion noted. 5. Inferior vena cava is mildly dilated with less than 50% inspiratory collapse. Electronically signed by : Eligio Chi MD 12/30/2022 17:20:04
--- NOTE | 2022-12-30 09:35 | US_ITS ---
FINAL REPORT CLINICAL HISTORY: CHRONIC KIDNEY DISEASE FINDINGS: Limited sonographic images of the area of interest were obtained. There is a 4.2 x 1.5 x 3.0 cm lesion which is isoechoic to fat, favor a lipoma. No fluid collection is identified. 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 Reviewed, Interpreted and Dictated by Helga Scott MD Transcribed by Marti Jonas Authenticated and [facility]
--- NOTE | 2022-12-30 09:35 | US_ITS ---
FINAL REPORT TECHNIQUE: Ultrasound images of the kidneys and bladder were obtained. CLINICAL HISTORY: KIDNEY DISEASE COMPARISON: 05/28/2022 FINDINGS: The right kidney measures 9.5 cm in length. It is normal in echogenicity. There is no hydronephrosis. The left kidney measures 10.1 cm in length. It is normal in echogenicity. There is no hydronephrosis. The spleen measures 10.1 cm which is normal. IMPRESSION: Unremarkable renal ultrasound. Reviewed, Interpreted and Dictated by Helga Scott MD Transcribed by Marti Jonas Authenticated and [facility]
--- NOTE | 2022-12-30 09:35 | US_ITS ---
FINAL REPORT CLINICAL HISTORY: PALP AREA FINDINGS: Limited sonographic images of the abdomen were obtained. There is a 4.3 x 3.0 x 1.5 cm mass in the area of interest similar in echogenicity to the adjacent fat. Findings are favored to represent a lipoma. IMPRESSION: Favor a lipoma at the area of interest. Reviewed, Interpreted and Dictated by Helga Scott MD Transcribed by Marti Jonas Authenticated and [facility]
== END ==
LOC: RAD 09:25
PROVIDERS: PCP Internal Medicine; Visit Provider Internal Medicine
DX: R19.05 Periumbilic swelling, mass or lump (principal); R94.4 Abnormal results of kidney function studies; I50.32 Chronic diastolic (congestive) heart failure
CPT/HCPCS: 76705; 76770; 76857; 93306

== ENCOUNTER → 2023-01-04 13:27 | Outpatient (CLI) | payer MEDICARE, SELFPAY ==
--- NOTE | 2023-01-04 | CA_ITS ---
FINAL REPORT CLINICAL HISTORY: known brain aneurysm, headaches, dizziness FINDINGS: An ultrasound of the carotid arteries was performed. Duplex Doppler evaluation with spectral analysis was performed. The peak systolic velocity of the right common carotid artery is 78 cm/s. The peak systolic velocity of the right internal carotid artery is 58 cm/s and end diastolic velocity 21 cm/s. A small amount of plaque is present. The right external carotid artery is patent. The right vertebral artery is patent with antegrade flow. ICA/CCA ratio: 0.9 The peak systolic velocity of the left common carotid artery is 79 cm/s. The peak systolic velocity of the left internal carotid artery is 84 cm/s and end diastolic velocity 29 cm/s. A small amount of plaque is present. The left external carotid artery is patent. The left vertebral artery is patent with antegrade flow. ICA/CCA ratio: 1.1 Bilateral patent vertebral arteries with antegrade flow. IMPRESSION: Less than 50% bilateral carotid stenosis. Reviewed, Interpreted and Dictated by Levi Naqvi MD Transcribed by Prosper Mims Authenticated and [facility]
== END ==
PROVIDERS: PCP Internal Medicine; Visit Provider Internal Medicine
DX: R42 Dizziness and giddiness (principal); I48.0 Paroxysmal atrial fibrillation
CPT/HCPCS: 93880

== ENCOUNTER 2023-02-04 18:05 | Observation (INO) | payer MEDICARE, SELFPAY ==
[2023-02-04 18:07] VITALS: BP 128/39; PULSE 76; RESP 18; O2SAT 92
--- NOTE | 2023-02-04 18:08 | XR_ITS ---
PROCEDURE INFORMATION: Exam: XR Chest Exam date and time: 02/04/2023 6:32 PM Age: 77 years old Clinical indication: Fever TECHNIQUE: Imaging protocol: Radiologic exam of the chest. Views: 1 view. COMPARISON: CR XR CHEST PORTABLE 08/29/2022 2:11 PM FINDINGS: Tubes, catheters and devices: Dual lead left-sided cardiac pacemaker. Lungs: Hazy interstitial opacities in both lungs could reflect interstitial edema versus interstitial pneumonia. Granulomatous change. Pleural spaces: Unremarkable. No pleural effusion. No pneumothorax. Heart/Mediastinum: Cardiomegaly. Bones/joints: Unremarkable. IMPRESSION: Interstitial opacities bilaterally could reflect edema versus pneumonia. Correlate clinically.
[2023-02-04 18:10] VITALS: BP 128/39; PULSE 76; RESP 20; TEMP 39.4; O2SAT 92
--- NOTE | 2023-02-04 18:10 | ECG_ITS ---
APPROVED REPORT Exam: Resting ECG HR:69 bpm ECG Measurements Heart Rate 69 AXES QRSd 195 QRS -61 QT 473 T 92 QTc 493 Conclusion ELECTRONIC VENTRICULAR PACEMAKER ABNORMAL RHYTHM ECG UNCONFIRMED REPORT Electronically signed by : Jimy Conley MD 02/05/2023 15:52:30
--- NOTE | 2023-02-04 18:11 | HMH.EDGENADL ---
Discharge Plan Disposition Patient Disposition: Admitted As Inpatient Condition: Fair Clinical Impressions Clinical Impression: Pneumonia, Acute lower UTI, Acute alteration in mental status Discharge ED Provider: Satya Posey General Adult HPI General Chief complaint: Altered Mental Status Stated complaint: ams Time Seen by Provider: 02/04/23 18:08 History of Present Illness HPI narrative: Patient presents with altered mental status. Her last known normal was approximate 1 PM this afternoon. Of note H&P are limited due to the patient's altered mental status. She does have a prior history of urinary tract infection. There are no known exacerbating or alleviating factors and symptoms are described as moderate. EMS reported her blood sugar to be approximately 370 prior to arrival. Related Data Home Medications Medication Instructions Recorded Confirmed atorvastatin 40 mg tablet 40 mg PO HS Cholesterol 01/06/18 09/28/22 bisoprolol fumarate 10 mg tablet 10 mg PO DAILY Hypertension 01/06/18 09/28/22 melatonin 10 mg capsule 10 mg PO HS sleep 01/06/18 09/28/22 apixaban 5 mg tablet 5 mg PO BID AFIB 07/23/19 09/28/22 hydroxychloroquine 200 mg tablet 200 mg PO BID Rheumatoid arthritis 03/17/20 09/28/22 acetaminophen 500 mg tablet 500 mg PO BIDP PRN Pain 09/02/21 09/28/22 gabapentin 800 mg tablet 800 mg PO TID NEUROPATHY 09/02/21 09/28/22 alprazolam 0.5 mg tablet 0.5 mg PO TIDP PRN Anxiety 07/31/22 09/28/22 pantoprazole 40 mg tablet,delayed 40 mg PO DAILY GERD 07/31/22 09/28/22 release empagliflozin 10 mg tablet 10 mg PO DAILY Diabetes 08/06/22 09/28/22 (Jardiance) naloxone 4 mg/actuation nasal 4 mg intranasal DIRECTED PRN 08/06/22 09/28/22 spray (Narcan) OVERDOSE fentanyl 37.5 mcg/hour transdermal 1 patch transdermal Q72H Pain 08/30/22 09/28/22 patch Previous Rx's Medication Instructions Recorded oxycodone 10 mg tablet 10 mg PO Q6HP PRN pain 30 days #0 08/07/22 tabs ipratropium 0.5 mg-albuterol 3 mg 3 ml inhalation Q6HP PRN Shortness 08/08/22 (2.5 mg base)/3 mL nebulization Of Breath 30 days #120 mL soln ondansetron 4 mg disintegrating 4 mg PO Q8H PRN nausea and 08/08/22 tablet vomiting 3 days #9 tabs escitalopram oxalate 10 mg tablet 10 mg PO DAILY 30 days #30 tabs 09/02/22 (Lexapro) furosemide 80 mg tablet 80 mg PO DAILY 30 days #30 tabs 09/02/22 insulin glargine 100 unit/mL 30 unit (0.3 mL) SQ HS Diabetes 30 09/02/22 subcutaneous solution (Lantus days #9 mL U-100 Insulin) lisinopril 5 mg tablet 5 mg PO DAILY 30 days #30 tabs 09/02/22 Allergies Allergy/AdvReac Type Severity Reaction Status Date / Time amitriptyline [From Elavil] Allergy Severe [id number]/THROAT; Verified 09/28/22 15:02 SEIZURES chlorpromazine Allergy Severe SEIZURES Verified 09/28/22 15:02 [From Thorazine] dichloralphenazone Allergy Severe S-SWELLS-OR Verified 09/28/22 15:02 [From Midrin] AL/THROAT isometheptene [From Midrin] Allergy Severe S-SWELLS-OR Verified 09/28/22 15:02 AL/THROAT prochlorperazine Allergy Severe SEIZURES Verified 09/28/22 15:02 [From Compazine] adhesive tape Allergy Intermediate I-RASH Verified 09/28/22 15:02 aspirin Allergy Intermediate COLD Verified 09/28/22 15:02 SWEATS , N/V cyclobenzaprine Allergy Unknown Unknown Verified 09/28/22 15:02 [From FLEXERIL] allergy reaction duloxetine [DULOXETINE] Allergy Unknown Unknown Verified 09/28/22 15:02 allergy reaction Iodinated Contrast Media Allergy Unknown Unknown Verified 09/28/22 15:02 [IODINATED CONTRAST MEDIA - allergy ORAL AND] reaction Sulfa (Sulfonamide Allergy Unknown CONTRAINDICATED Verified 09/28/22 15:02 Antibiotics) WITH ASTHMA trimethoprim [TRIMETHOPRIM] Allergy Unknown Unknown Verified 09/28/22 15:02 allergy reaction leflunomide Allergy rash, Verified 09/28/22 15:02 redness Macrolide Antibiotics Allergy rash, Verified 09/28/22 15:02 redness Be
[2023-02-04 18:19] LABS: Eosinophils # 0.2 K/mm3 (0.0-0.4); Eosinophils % 1.9 % (0.1-12.0); Hematocrit 29.3 % (37.0-47.0); Hemoglobin 9.1 g/dL (12.2-16.2); Lymphocytes # 0.7 K/mm3 (0.7-4.5); Lymphocytes % 5.7 % (10-50); Mean Corpuscular Hemoglobin 30.1 pg (27.0-31.2); Mean Corpuscular Volume 97.1 fl (81-99); Mean Platelet Volume 8.9 fl (7.4-10.4); Monocytes # 0.4 K/mm3 (0.1-1.0); Monocytes % 3.2 % (1.7-9.3); Neutrophils # 10.7 K/mm3 (1.8-7.8); Neutrophils % 89.1 % (37.0-80.0); Platelet Count 161 K/mm3 (142-424); Red Blood Count 3.02 M/mm3 (4.20-5.40); Red Cell Distribution Width 17.4 % (11.5-17.5)
[2023-02-04 18:20] LABS: MANUAL DIFFERENTIAL MANUAL DIFFERENTIAL (MANUAL DIFF)
[2023-02-04 18:23] LABS: Coronavirus 19, PCR Not Detected (NotDetected); Influenza A, PCR Not Detected (NotDetected); Influenza B, PCR Not Detected (NotDetected); Microscopic, Urine URINE MICROSCOPIC (MICROSCOPIC)
[2023-02-04 18:24] LABS: Chloride 96 mmol/L (98-107); Potassium 4.3 mmoL/L (3.5-5.1); Sodium 139 mmol/L (136-145)
[2023-02-04 18:24] LABS: Appearance,Urine CLEAR (Clear); Bilirubin,Urine Negative (Negative); Blood, Urine TRACE-I (Negative); Color,Urine YELLOW (Yellow); Glucose,Urine (UA) 3+ (Negative); Ketones,Urine Negative (Negative); Leukocyte Esterase,Urine TRACE (Negative); Nitrate,Urine Negative (Negative); PH,Urine 5.5 (5.0-8.5); Protein,Urine Negative (Negative); Urobilinogen,Urine 0.2 EU/dl (0.2)
[2023-02-04 18:27] LABS: Alanine Aminotransferase 24 U/L (12-78); Albumin Level 3.7 g/dl (3.5-5.0); Albumin/Globulin Ratio 1.4 (1.1-1.8); Alkaline Phosphatase 104 U/L (38-126); Anion Gap 15.3 mEq/L (5-15); Aspartate Amino Transferase 33 U/L (14-36); Bilirubin,Total 0.5 mg/dl (0.2-1.3); Blood Urea Nitrogen 36 mg/dl (7-17); Carbon Dioxide 32 mmol/L (22.0-30.0); Creatinine Clearance Estimated 5 mL/min (50-200); Estimated Glomerular Filt Rate 37 ml/min (>60); GFR (African American) 44 ML/MIN (>60); Globulin 2.7 g/dL (1.3-3.2); Total Protein,Serum 6.4 g/dl (6.3-8.2)
[2023-02-04 18:28] LABS: Calcium 8.2 mg/dl (8.4-10.2); Glucose 287 mg/dl (74-100)
[2023-02-04 18:30] VITALS: BP 149/69; PULSE 70; RESP 20; O2SAT 92
--- NOTE | 2023-02-04 18:30 | PC.NURSE ---
XR at bedside. Family at bedside.
[2023-02-04 18:37] LABS: NT Pro Brain Natriuretic Pep. 4680 pg/mL (0-450)
[2023-02-04 18:46] LABS: Hypochromasia 2+; Lymphocytes % 4 % (10-50); Monocytes % 2 % (2-9); Neutrophils % 93 % (42-76); Ovalocytes 1+; Platelet Estimate Normal; Total Cells Counted 100
[2023-02-04 18:51] LABS: Squamous Epithelial Cell,Urine Occasional #/hpf (0-5)
[2023-02-04 18:52] LABS: Bacteria,Urine Trace /lpf; Yeast,Urine 1+ /lpf
[2023-02-04 18:53] VITALS: BP 149/69; PULSE 70; RESP 20; TEMP 38.5; O2SAT 94
[2023-02-04 18:58] LABS: Lactic Acid 1.7 mmol/L (0.7-2.1)
--- NOTE | 2023-02-04 19:21 | CT_ITS ---
PROCEDURE INFORMATION: Exam: CT Head Without Contrast Exam date and time: 02/04/2023 7:49 PM Age: 77 years old Clinical indication: Altered mental status/memory loss; Additional info: AMS TECHNIQUE: Imaging protocol: Computed tomography of the head without contrast. Radiation optimization: All CT scans at this facility use at least one of these dose optimization techniques: automated exposure control; mA and/or kV adjustment per patient size (includes targeted exams where dose is matched to clinical indication); or iterative reconstruction. REPORTING DATA: Count of CT and Cardiac NM exams in prior 12 months: This patient has received 4 known CTs and 0 known cardiac nuclear medicine studies in the 12 months prior to the current study. COMPARISON: CT HEAD/BRAIN WO CON 07/30/2022 5:15 PM FINDINGS: Brain: Atrophy and chronic small vessel ischemic changes. No hemorrhage. No mass effect or midline shift. Cerebral ventricles: No ventriculomegaly. Paranasal sinuses: Visualized sinuses are unremarkable. No fluid levels. Mastoid air cells: Visualized mastoid air cells are well aerated. Bones/joints: Unremarkable. No acute fracture. Soft tissues: Unremarkable. IMPRESSION: Chronic changes in the brain but no acute intracranial abnormality.
[2023-02-04 19:56] VITALS: BP 149/68; PULSE 70; RESP 20; TEMP 38.5; O2SAT 94
[2023-02-04 20:00] VITALS: BP 130/62; PULSE 64; RESP 16; TEMP 37.1; O2SAT 96; BMI 35.5
--- NOTE | 2023-02-04 20:02 | EXP.HP ---
History of Present Illness *Admission Date: 02/04/23 *Reason for visit:: Altered Mental Status *History of present illness: Ms. Leon is a 77 year old female with PMHx DM, HTN, CHF, CKD stage 3b, atrial fibrillation with SSS - on chronic anticoagulation, diabetic neuropathy, GERD, and chronic pain disorder with chronic narcotic use/ polypharmacy, who was found in the floor by her this evening. She did not recall falling in the floor and had confused conversation. Work-up in the ER, patient was noted to be febrile with temperature 101.3'F. CBC demonstrated leukocytosis with anemia. Chemistry was unremarkable with stable CR. CXR demonstrated findings suggestive of LLL pneumonia with mild CHF. Her proBNP was slightly elevated. Urine was abnormal, consistent with UTI. Discussed with ER physician. Agree with empiric antibiotics and admission to hospitalist service for further work-up and evaluation. [facility] Disclaimer: The information contained in this section may have been updated after the patient was seen, as this information can be updated by other users. Medical History (Updated 02/04/23 @ 20:52 by Judith White APRN) Chronic narcotic use Chronic pain disorder CKD (chronic kidney disease) stage 3, GFR 30-59 ml/min CVA (cerebral vascular accident) Degenerative joint disease (DJD) of lumbar spine Diabetes Diabetic neuropathy Dysphagia GERD (gastroesophageal reflux disease) Hypertension Lumbosacral radiculopathy due to degenerative joint disease of spine Obese Pacemaker Polypharmacy Severe sleep apnea Surgical History H/O: hysterectomy History of carpal tunnel surgery History of colon resection History of spinal surgery Family History Other Diabetes Social History Smoking Status: Unknown if ever smoked second hand exposure: No alcohol intake: never substance use type: denies use current occupational status: disabled Travel in the last 8 weeks: None household members: spouse and other housing: other number of children: 3 current occupational exposures/hazards: No caffeine: Yes Review of Systems Review of Systems Review of systems (narrative): Constitutional Comments: Patient denies any chills. Daughters at bedside stated she had a fever at home. They also added that she mainly lays in the bed, except to go to the bathroom. Eyes Comments: Patient denies any change in vision. Denies drainage, burning. ENT Comments: Patient denies [facility]. Denies sore throat, nasal or sinus drainage. *Cardiovascular Comments: Patient denies any chest pain or shortness of breath. Denies any palpitations. Denies any orthopnea or PND. Denies any lower extremity edema. She did state that she has had low blood pressure when she stands on occasion. *Respiratory Comments: Admits to occasional shortness of breath. Denies cough or congestion. Stated she did have COVID in the past. *Gastrointestinal Comments: Denies any abdominal pain. Stated that her stools have been dark and diarrhea. *Genitourinary Comments: Denies any burning. Her daughters stated that she has problem with frequent UTIs. *Musculoskeletal Comments: Weakness. Patient suffers from chronic pain and is on pain medications. Integumentary/Breasts Comments: Denies any problems with skin. *Neurologic Comments: Stated she has a Hx of a brain aneurysm and has headaches occasionally. Patient's daughters stated that she was found in the floor, confused. Psychiatric Comments: Patient's daughters stated that she has anxiety. Endocrine Comments: Denies increased thirst or sweating. Has Hx of diabetes. Meds Home Medications and Allergies Home Medications Medication Instructions Recorded Confirmed Type atorvastatin 40 mg tablet 40 mg PO HS Cholesterol 01/06/18 1
--- NOTE | 2023-02-04 20:03 | PC.NURSE ---
PT ARRIVED TO FLOOR AT THIS TIME
[2023-02-04 21:09] LABS: POC Glucose,Bedside 247 (70-110)
[2023-02-05] VITALS (8 sets, daily range): BP systolic 110–132; BP diastolic 63–83; PULSE 71–79; RESP 16–20; TEMP 36.8–37.1; O2SAT 97–100; BMI 35.5
[2023-02-05 06:28] LABS: POC Glucose,Bedside 128 (70-110)
[2023-02-05 07:02] LABS: Eosinophils # 0.1 K/mm3 (0.0-0.4); Mean Corpuscular Volume 95.8 fl (81-99); Monocytes # 0.4 K/mm3 (0.1-1.0)
[2023-02-05 07:10] LABS: Basophils % 0.2 % (0.1-2.0); Eosinophils % 1.4 % (0.1-12.0); Hematocrit 25.7 % (37.0-47.0); Lymphocytes # 1.7 K/mm3 (0.7-4.5); Lymphocytes % 19.1 % (10-50); Mean Corpuscular HGB Conc 31.1 g/dL (31.8-35.4); Mean Corpuscular Hemoglobin 29.8 pg (27.0-31.2); Mean Platelet Volume 8.7 fl (7.4-10.4); Monocytes % 4.8 % (1.7-9.3); Neutrophils # 6.6 K/mm3 (1.8-7.8); Neutrophils % 74.5 % (37.0-80.0); Platelet Count 141 K/mm3 (142-424); Red Blood Count 2.69 M/mm3 (4.20-5.40); Red Cell Distribution Width 17.6 % (11.5-17.5); White Blood Count 8.8 K/mm3 (4.8-10.8)
[2023-02-05 07:12] LABS: Alanine Aminotransferase 19 U/L (12-78); Albumin Level 3.1 g/dl (3.5-5.0); Albumin/Globulin Ratio 1.1 (1.1-1.8); Alkaline Phosphatase 86 U/L (38-126); Anion Gap 10.3 mEq/L (5-15); Aspartate Amino Transferase 26 U/L (14-36); Bilirubin,Total 0.4 mg/dl (0.2-1.3); Blood Urea Nitrogen 34 mg/dl (7-17); Carbon Dioxide 33 mmol/L (22.0-30.0); Chloride 104 mmol/L (98-107); Creatinine Clearance Estimated 61 mL/min (50-200); Estimated Glomerular Filt Rate 44 ml/min (>60); GFR (African American) 53 ML/MIN (>60); Globulin 2.7 g/dL (1.3-3.2); Glucose 116 mg/dl (74-100); Magnesium 2.5 mg/dl (1.6-2.3); Potassium 4.3 mmoL/L (3.5-5.1); Sodium 143 mmol/L (136-145); Total Protein,Serum 5.8 g/dl (6.3-8.2)
[2023-02-05 11:29] LABS: POC Glucose,Bedside 188 (70-110)
--- NOTE | 2023-02-05 12:58 | HMH.PTEV ---
Physical Therapy Evaluation Rehab PT IP Evaluation Start: 02/04/23 23:14 Freq: ONCE Status: Active Protocol: Document 02/05/23 12:39 PDESEROUX (Rec: 02/05/23 12:58 [email or web address] [id number]) Subjective/History History History Pt. presents to [facility] Inpatient setting w/ a PMH of CVA, DM, CKD, DDD and HTN who was found laying on the floor last night(02/04/23) by her . Pt. reports not being able to remember the fall, laying on the floor, nor her finding her. Pt. reports having increased confusion at that time secondary to c/o of a UTI. Pt. 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 Pt. reports having multiple falls that past few days. Pt. reports she does not ambulate at home and mostly stays in her chair throughout the day, reports that she will transfer , but requires the assistance from her . Pt. reports living in a 2-story home w/ her , but she doesn't not utilize the stairs in order to thrive. Subjective Subjective Pt.'s was bed side. Pt. reports, we are going back home. Pt. reports increase in BLE ankle/knee P! w/ activity. Rehab PT IP Eval Objective Appearance Patient Behavior Appropriate,Cooperative Patient Orientation Person,Place,Age,Month, Situation Difficulty following instructions none Speech Pattern Clear,Appropriate,Coherent Ambulation Patient Able to Ambulate No Balance Ability to Arise Able, uses arms to help Sitting Balance Leans or slides in chair Standing Balance Unsteady Dynamic Sitting Balance Ability Fair Dynamic Standing Balance Ability Fair Transfers Bed Transfer Ability Minimal x 1 (25% assist) Sit to Stand Bed Transfer Ability Moderate x 1 (50% assist) Pain hands, feet Pain Intensity
--- NOTE | 2023-02-05 16:02 | EXP.ACUTE.PN ---
Subjective *Date: 02/05/23 *Time: 18:02 Interval history: Patient is feeling better this morning. Stable on 2 L nasal cannula oxygen. No fever overnight. No nausea or vomiting. More alert and interactive today. Back to baseline per . Culture still pending. Complains of persistent pain, responds best to her gabapentin, oxycodone, fentanyl regimen. Medical Exam Vital signs and Labs for Last 24 Hours: Vital Signs Temp Pulse Pulse Resp BP BP Pulse Ox 02/05/23 15:48 16 02/05/23 15:43 98.2 F 77 18 119/66 99 02/05/23 11:20 98.8 F 73 18 129/83 97 02/05/23 07:19 98.4 F 73 18 132/67 100 02/05/23 04:00 98.3 F 72 20 128/64 98 02/05/23 00:00 98.3 F 72 20 124/75 97 02/04/23 20:00 98.8 F 64 16 130/62 96 02/04/23 19:56 101.3 F H 70 20 149/68 H 02/04/23 18:53 101.3 F H 70 20 149/69 H 94 L 02/04/23 18:30 70 20 149/69 H 92 L 02/04/23 18:07 76 18 128/39 L 92 L 02/04/23 18:10 102.9 F H 76 20 128/39 L 92 L Intake and Output 02/05/23 02/05/23 02/05/23 07:59 15:59 23:59 Intake Total 360 / 360 Output Total 900 / 1150 250 / 1150 Balance -540 / -790 -250 / -790 Intake: Intake, Oral Amount 360 / 360 Output: Output, Urine Amount 900 / 1150 250 / 1150 Other: Number of Unmeasured Voids 1 1 Weight 96.706 kg Patient Weight 02/05/23 23:59 Weight 96.706 kg Laboratory Results - last 24 hr 02/04/23 17:45: WBC 12.0 H, RBC 3.02 L, Hgb 9.1 L, Hct 29.3 L, MCV 97.1, MCH 30.1, MCHC 31.0 L, RDW 17.4, Plt Count 161, MPV 8.9, Neut % (Auto) 89.1 H, Lymph % (Auto) 5.7 L, Payne % (Auto) 3.2, Eos % (Auto) 1.9, Baso % (Auto) 0.0 L, Neut # (Auto) 10.7 H, Lymph # (Auto) 0.7, Payne # (Auto) 0.4, Eos # (Auto) 0.2, Baso # (Auto) 0.0, Total Counted 100, Neutrophils % (Manual) 93 H, Band Neutrophils % 1.0, Lymphocytes % (Manual) 4 L, Monocytes % (Manual) 2, Platelet Estimate Normal, Hypochromasia 2+, Ovalocytes 1+ 02/04/23 17:45: Sodium 139, Potassium 4.3, Chloride 96 L, Carbon Dioxide 32 H, Anion Gap 15.3 H, BUN 36 H, Creatinine 1.40 H, Estimated Creat Clear 5, Estimated GFR 37 L, Est GFR ( Amer) 44 L, Glucose 287 H, Calcium 8.2 L, Total Bilirubin 0.5, AST 33, ALT 24, Alkaline Phosphatase 104, Total Protein 6.4, Albumin 3.7, Globulin 2.7, Albumin/Globulin Ratio 1.4 02/04/23 17:45: NT-Pro-B Natriuret Pep 4680 H 02/04/23 18:13: Urine Color Yellow, Urine Appearance Clear, Urine pH 5.5, Ur Specific Oracle 1.010, Urine Protein Negative, Urine Glucose (UA) 3+, Urine Ketones Negative, Urine Blood Trace-i, Urine Nitrate Negative, Urine Bilirubin Negative, Urine Urobilinogen 0.2, Ur Leukocyte Esterase Trace, Urine RBC 3-5, Urine WBC 3-5, Ur Squamous Epith Cells Occasional, Urine Bacteria Trace, Urine Yeast 1+ 02/04/23 18:13: SARS-CoV-2 (PCR) Not detected, Influenza A Untype (PCR) Not detected, Influenza Type B (PCR) Not detected 02/04/23 18:30: Lactate 1.7 02/04/23 21:00: POC Glucose 247 H 02/05/23 05:25: POC Glucose 128 H 02/05/23 06:33: WBC 8.8 D, RBC 2.69 L, Hgb 8.0 L D, Hct 25.7 L, MCV 95.8, MCH 29.8, MCHC 31.1 L, RDW 17.6 H, Plt Count 141 L, MPV 8.7, Neut % (Auto) 74.5, Lymph % (Auto) 19.1, Payne % (Auto) 4.8, Eos % (Auto) 1.4, Baso % (Auto) 0.2, Neut # (Auto) 6.6, Lymph # (Auto) 1.7, Payne # (Auto) 0.4, Eos # (Auto) 0.1, Baso # (Auto) 0.0 02/05/23 06:33: Sodium 143, Potassium 4.3, Chloride 104, Carbon Dioxide 33 H, Anion Gap 10.3, BUN 34 H, Creatinine 1.20 H, Estimated Creat Clear 61, Estimated GFR 44 L, Est GFR ( Amer) 53 L D, Glucose 116 H D, Calcium 8.0 L, Magnesium 2.5 H, Total Bilirubin 0.4, AST 26, ALT 19, Alkaline Phosphatase 86, Total Protein 5.8 L, Albumin 3.1 L D, Globulin 2.7, Albumin/Globulin Ratio 1.1 02/05/23 11:21: POC Glucose 188 H I & O for Labs for Last 24 Hours: Intake & Output 02/02/23 02/03/23 02/04/23 02/05/23 23:59 23:59 23:59 23:59 Intake Total 360 / 360 Output Total 1150 / 1150 Balance -790 / -790 Weigh
[2023-02-05 16:33] LABS: POC Glucose,Bedside 143 (70-110)
--- NOTE | 2023-02-05 18:56 | PC.NURSE ---
Pt is resting in bed. Has c/o discomfort to bilateral feet, hands. Medicated per mar. VSS. remained at bedside this shift. Has went home since.
[2023-02-05 19:54] LABS: POC Glucose,Bedside 224 (70-110)
[2023-02-06 04:00] VITALS: BP 117/67; PULSE 67; RESP 19; TEMP 36.6; O2SAT 99; BMI 33.5
[2023-02-06 05:42] LABS: POC Glucose,Bedside 125 (70-110)
[2023-02-06 07:37] VITALS: BP 149/72; PULSE 70; RESP 17; TEMP 36.8; O2SAT 99
[2023-02-06 07:57] LABS: Basophils % 0.1 % (0.1-2.0); Eosinophils # 0.7 K/mm3 (0.0-0.4); Eosinophils % 8.2 % (0.1-12.0); Hemoglobin 8.7 g/dL (12.2-16.2); Lymphocytes # 1.9 K/mm3 (0.7-4.5); Lymphocytes % 23.3 % (10-50); Mean Corpuscular HGB Conc 31.1 g/dL (31.8-35.4); Mean Corpuscular Hemoglobin 30.1 pg (27.0-31.2); Mean Corpuscular Volume 96.8 fl (81-99); Mean Platelet Volume 8.9 fl (7.4-10.4); Monocytes # 0.4 K/mm3 (0.1-1.0); Monocytes % 5.2 % (1.7-9.3); Neutrophils # 5.3 K/mm3 (1.8-7.8); Neutrophils % 63.4 % (37.0-80.0); Platelet Count 147 K/mm3 (142-424); Red Blood Count 2.89 M/mm3 (4.20-5.40); Red Cell Distribution Width 17.6 % (11.5-17.5); White Blood Count 8.3 K/mm3 (4.8-10.8)
--- NOTE | 2023-02-06 07:59 | EXP.DC.SUM ---
General Admission date:: 02/04/23 Discharge date: 02/06/23 HPI HPI HPI: Ms. Leon is a 77 year old female with PMHx DM, HTN, CHF, CKD stage 3b, atrial fibrillation with SSS - on chronic anticoagulation, diabetic neuropathy, GERD, and chronic pain disorder with chronic narcotic use/ polypharmacy, who was found in the floor by her this evening. She did not recall falling in the floor and had confused conversation. Work-up in the ER, patient was noted to be febrile with temperature 101.3'F. CBC demonstrated leukocytosis with anemia. Chemistry was unremarkable with stable CR. CXR demonstrated findings suggestive of LLL pneumonia with mild CHF. Her proBNP was slightly elevated. Urine was abnormal, consistent with UTI. Discussed with ER physician. Agree with empiric antibiotics and admission to hospitalist service for further work-up and evaluation. Hospital Course Hospital Course Hospital Course: Patient is a 77-year-old female with multiple comorbidities including chronic pain, CKD, diabetes, hypertension, diastolic heart failure, rheumatoid arthritis who presented with fever and confusion to the ER.? Mentation improved rapidly. Remained stable during admission. Problems addressed as follows: LLL Pneumonia UTI Image findings with concern for left lower lobe pneumonia, urine abnormal. No culture growth prior to discharge however. Last positive culture per our records was in July and was sensitive to ceftriaxone. Continue ceftriaxone during admission. Transition to cefdinir at discharge to cover both sites of potential infection. Breathing was stable on baseline 2 L nasal cannula oxygen. Did not have productive cough. Acute on Chronic Diastolic CHF Hypertension Mildly elevated proBNP, diuresed x1 with 40 mg Lasix IV. Responded well with negative fluid balance. Continued home beta-caroline, VENUS, Jardiance. No changes to regimen on discharge. DM, Type 2 A1c obtained of 7. Continue sliding scale insulin during admission. Continue Jardiance. Recommend decreasing home glargine to 30 units nightly as she was treated with 25 units nightly and blood sugars in the morning were less than 110 consistently. CKD, Stage 3b: ?Monitored daily CR, stable at baseline 1.2 Anemia, Suspect of Chronic Disease Iron levels previously low, Initiate Multivitamin with iron. No transfusion necessary during admission. Remained above threshold of hemoglobin of 7 GERD: ?Continue PPI Chronic Pain Disorder/Polypharmacy Monitored for over sedation during admission. Continued her fentanyl patch 25 mcg every 3 days. Continued home oxycodone regimen which she takes scheduled almost every 6 hours. We will try dose reduction to 7.5 mg 4 times a day as an outpatient to see if she can tolerate this to decrease risk for oversedation. Continue gabapentin. is currently breaking tablets at home to give ~600 mg 4 times a day. Will defer prescribing dose change to PCP. Her polypharmacy definitely complicates her care. She appears to be very regimented with these medications and does not appear to be abusing them. I do have strong concern however that they are a culprit in her potential oversedation. Anxiety Treated with citalopram during admission as formulary conversion from her Lexapro. Increase Lexapro on discharge 20 mg daily. Recommend decreasing her Xanax to twice daily to decrease risk for oversedation in the setting of polypharmacy. Stable for discharge home. Urine culture still pending. Completing antibiotics as above. Extensive counseling on medication changes and recommendations. Questions answered at bedside. Spent 40 minutes in discharge counseling and direct care with patient. Exam Data for Last 24 hours Vital signs and Labs for Last 24 Hours: Temp Pulse Resp BP Pulse Ox 98.3 F 70 17 149/72 H 99 02/06/23 07:37 02/06/23 07:37 02/06/23 07:37 02/06/23 07:37 02/06/23 07:37 Laboratory Results - last 24 hr
[2023-02-06 08:10] LABS: Alanine Aminotransferase 19 U/L (12-78); Albumin Level 3.1 g/dl (3.5-5.0); Albumin/Globulin Ratio 1.2 (1.1-1.8); Alkaline Phosphatase 86 U/L (38-126); Anion Gap 9.7 mEq/L (5-15); Aspartate Amino Transferase 26 U/L (14-36); Bilirubin,Total 0.5 mg/dl (0.2-1.3); Blood Urea Nitrogen 26 mg/dl (7-17); Calcium 7.9 mg/dl (8.4-10.2); Carbon Dioxide 34 mmol/L (22.0-30.0); Chloride 101 mmol/L (98-107); Creatinine Clearance Estimated 57 mL/min (50-200); Estimated Glomerular Filt Rate 44 ml/min (>60); GFR (African American) 53 ML/MIN (>60); Globulin 2.6 g/dL (1.3-3.2); Glucose 105 mg/dl (74-100); Magnesium 2.4 mg/dl (1.6-2.3); Potassium 3.7 mmoL/L (3.5-5.1); Sodium 141 mmol/L (136-145); Total Protein,Serum 5.7 g/dl (6.3-8.2)
[2023-02-06 11:03] VITALS: BP 110/77; PULSE 75; RESP 16; TEMP 37; O2SAT 98
--- NOTE | 2023-02-06 12:12 | PC.NURSE ---
pt has been disahrged form the facility. took all belongings with her and voiced understanding of all discahrge education and folow up appts. took al home medications with her.
--- NOTE | 2023-02-07 11:46 | SW/DCPLANNER ---
Addendum entered by Arianne Prescott 02/07/23 13:50: Disha balderas/ [facility] stated that services will begin today. Original Note: Patient discharged home over the weekend. PT recommended home health services. I called and spoke with patient/: both are agreeable to home health services at this time. Patient information/order will be faxed to [facility].
--- NOTE | 2023-02-07 11:50 | CARE MANAGER ---
Spoke with patient's husbands and reviewed medication changes. They have an appointment with Dr. Medel this afternoon and he wants to review the medications with him before she takes them to make sure everything is ok. They deny any other questions or concerns. GONZALEZ Sahu
== END 2023-02-06 12:15 | disposition home or self-care (01) ==
LOC: ER 19:20 → 2ND 19:52
PROVIDERS: Nurse Practitioner; Admitting Provider Internal Medicine Adolescent Medicine; Emergency Provider Emergency Medicine; PCP Internal Medicine; Visit Provider Internal Medicine Adolescent Medicine
DX: J18.9 Pneumonia, unspecified organism (principal); N39.0 Urinary tract infection, site not specified; I50.33 Acute on chronic diastolic (congestive) heart failure; E11.22 Type 2 diabetes mellitus with diabetic chronic kidney disease; I13.0 Hypertensive heart and chronic kidney disease with heart failure and stage 1 through stage 4 chronic kidney disease, or unspecified chronic kidney disease; N18.30 Chronic kidney disease, stage 3 unspecified; K21.9 Gastro-esophageal reflux disease without esophagitis; G89.4 Chronic pain syndrome; Z79.899 Other long term (current) drug therapy; Z88.8 Allergy status to other drugs, medicaments and biological substances; Z79.4 Long term (current) use of insulin; Z79.01 Long term (current) use of anticoagulants; I49.5 Sick sinus syndrome; Z20.822 Contact with and (suspected) exposure to COVID-19
CPT/HCPCS: G0378; 36415; 70450; 71045; 80053; 81001; 82962; 83036; 83605; 83735; 83880; 85007; 85025; 87040; 87086; 93005; 97161; 99285; C9803; J0696; U0003; U0005

== ENCOUNTER → 2023-02-07 16:55 | Outpatient (CLI) | payer MEDICARE, SELFPAY ==
--- NOTE | 2023-02-07 | XR_ITS ---
PROCEDURE INFORMATION: Exam: XR Right Shoulder Exam date and time: 02/07/2023 5:11 PM Age: 77 years old Clinical indication: Injury or trauma; Fall; Blunt trauma (contusions or hematomas); Shoulder; Right TECHNIQUE: Imaging protocol: Radiologic exam of the right shoulder. Views: 2 or more views. COMPARISON: CR XR SHOULDER RT MIN 2V 11/16/2022 4:06 PM FINDINGS: Bones/joints: There is no evidence of acute fracture or dislocation. Mild degenerative changes involve the AC joint and glenohumeral joints.The visualized cervical thoracic spine demonstrates mild degenerative changes at multiple levels. Lungs: Visualized right lung is clear without pneumothorax. Soft tissues: No significant soft tissue edema. No subcutaneous emphysema or radiopaque foreign bodies. IMPRESSION: No acute posttraumatic osseous injury.
--- NOTE | 2023-02-07 | XR_ITS ---
PROCEDURE INFORMATION: Exam: XR Left Knee Exam date and time: 02/07/2023 5:11 PM Age: 77 years old Clinical indication: Injury or trauma; Blunt trauma; Knee; Left; Patient HX: Fall 02/04/23 TECHNIQUE: Imaging protocol: Radiologic exam of the left knee. Views: 3 views. COMPARISON: CR XR KNEE LT 3V 05/25/2019 2:55 PM FINDINGS: Bones/joints: There is no evidence of acute fracture or dislocation. Mild osteoarthritic degenerative changes involve the medial femoral tibial joint space and the patellofemoral joint with mild joint space narrowing and marginal osteophytes. There is mild sharpening of the tibial spines. Soft tissues: No significant soft tissue edema. No subcutaneous emphysema or radiopaque foreign bodies. No joint effusion. The visualized distal femoral, popliteal an visualized calf arteries demonstrate moderate atherosclerotic calcification. IMPRESSION: 1. No acute posttraumatic osseous injury. 2. Mild osteoarthritis.
--- NOTE | 2023-02-07 | XR_ITS ---
PROCEDURE INFORMATION: Exam: XR Right Knee Exam date and time: 02/07/2023 5:11 PM Age: 77 years old Clinical indication: Injury or trauma; Blunt trauma; Knee; Right; Patient HX: Fall 02/04/23 TECHNIQUE: Imaging protocol: Radiologic exam of the right knee. Views: 3 views. COMPARISON: CR XR KNEE RT 2V 07/30/2022 8:38 PM FINDINGS: Bones/joints: There is no evidence of acute fracture or dislocation. Mild osteoarthritic degenerative changes involve the medial femoral tibial joint space in the patellofemoral joint with mild joint space narrowing and marginal osteophytes. There is mild sharpening of the tibial spines. Soft tissues: No significant soft tissue edema. No subcutaneous emphysema or radiopaque foreign bodies. No joint effusion. The visualized distal femoral, popliteal an visualized calf arteries demonstrate moderate atherosclerotic calcification. IMPRESSION: 1. No acute posttraumatic osseous injury. 2. Mild osteoarthritis.
--- NOTE | 2023-02-07 | XR_ITS ---
PROCEDURE INFORMATION: Exam: XR Lumbosacral Spine Exam date and time: 02/07/2023 5:11 PM Age: 77 years old Clinical indication: Injury or trauma; Blunt trauma (contusions or hematomas); Patient HX: Fall 02/04/23 TECHNIQUE: Imaging protocol: Radiologic exam of the lumbosacral spine. Views: 4 or 5 views. COMPARISON: CR XR LUMBAR SPINE MIN 4V 09/22/2021 4:17 PM FINDINGS: Bones/joints: The thoracolumbar spine demonstrates moderate discogenic and spondylitic degenerative changes at multiple levels. There are mild endplate discogenic degenerative changes and marginal osteophytes. This is most severe at the L2-L3 level. There is prominent intervertebral disc space narrowing at this level and mild vacuum disc phenomenon. Multilevel facet degenerative arthropathy is present, most prominent involving the mid to lower lumbar spine. There is straightening of the lower normal lumbar lordotic curvature. There is a mild convex left lumbar scoliosis. Postoperative spinal orthopedic fusion hardware secures the L2-L3 level, in near anatomic alignment with bilateral inter pedicular screws in place. Disc spacer devices are re-identified at the L2-L3, L3-L4 and L4-L5 levels. There is no evidence of acute fracture. Vertebral body heights are preserved and stable. Soft tissues: A few phleboliths are present in the posterior soft tissues of the lower back. Intraperitoneal space: Clips are present in the right upper quadrant, left mid abdomen and left lower abdomen. Nonspecific bowel gas pattern. Elevation of the right hemidiaphragm is stable. Vasculature: The aorta and iliac arteries demonstrate moderate atherosclerotic calcification. IMPRESSION: 1. Stable exam without acute posttraumatic abnormality. 2. Multilevel moderate discogenic and spondylitic degenerative changes with stable postoperative changes.
== END ==
LOC: RAD 16:56
PROVIDERS: PCP Internal Medicine; Visit Provider Internal Medicine
DX: M25.511 Pain in right shoulder (principal); M54.50 Low back pain, unspecified; M25.561 Pain in right knee; M25.562 Pain in left knee; W19.XXXA Unspecified fall, initial encounter
CPT/HCPCS: 72110; 73030; 73562

== ENCOUNTER → 2023-03-09 16:30 | Outpatient (CLI) | payer MEDICARE, SELFPAY | PROVIDERS: PCP Internal Medicine; Visit Provider Internal Medicine | DX: N39.0 Urinary tract infection, site not specified (principal); B96.1 Klebsiella pneumoniae [K. pneumoniae] as the cause of diseases classified elsewhere; B95.2 Enterococcus as the cause of diseases classified elsewhere | CPT/HCPCS: 87086; 87088; 87186 ==

== ENCOUNTER → 2023-04-12 15:10 | Outpatient (CLI) | payer MEDICARE, SELFPAY ==
[2023-04-12 16:20] LABS: Basophils % 0.1 % (0.1-2.0); Eosinophils # 0.3 K/mm3 (0.0-0.4); Eosinophils % 4.8 % (0.1-12.0); Hematocrit 31.8 % (37.0-47.0); Hemoglobin 9.3 g/dL (12.2-16.2); Lymphocytes # 1.3 K/mm3 (0.7-4.5); Lymphocytes % 19.7 % (10-50); Mean Corpuscular HGB Conc 29.1 g/dL (31.8-35.4); Monocytes # 0.3 K/mm3 (0.1-1.0); Monocytes % 4.8 % (1.7-9.3); Neutrophils # 4.7 K/mm3 (1.8-7.8); Neutrophils % 70.6 % (37.0-80.0); Platelet Count 159 K/mm3 (142-424); Red Blood Count 3.31 M/mm3 (4.20-5.40); Red Cell Distribution Width 16.3 % (11.5-17.5); White Blood Count 6.7 K/mm3 (4.8-10.8)
[2023-04-12 16:54] LABS: Alanine Aminotransferase 14 U/L (12-78); Albumin Level 3.5 g/dl (3.5-5.0); Albumin/Globulin Ratio 1.4 (1.1-1.8); Alkaline Phosphatase 80 U/L (38-126); Aspartate Amino Transferase 26 U/L (14-36); Bilirubin,Total 0.3 mg/dl (0.2-1.3); Blood Urea Nitrogen 34 mg/dl (7-17); Calcium 8.3 mg/dl (8.4-10.2); Carbon Dioxide 29 mmol/L (22.0-30.0); Chloride 106 mmol/L (98-107); Chol/HDL Ratio 2.3 (1-3.5); Cholesterol 90 mg/dl (140-200); Estimated Glomerular Filt Rate 34 ml/min (>60); GFR (African American) 41 ML/MIN (>60); Globulin 2.5 g/dL (1.3-3.2); Glucose 98 mg/dl (74-100); HDL Cholesterol 39 mg/dl (40-60); Sodium 142 mmol/L (136-145); Triglycerides 61 mg/dl (30-150); VLDL Cholesterol 12 mg/dL (0-40)
[2023-04-12 17:05] LABS: Direct LDL Cholesterol 39.37 mg/dL (100-129)
[2023-04-12 17:24] LABS: Hemoglobin A1C 6.7 % (4.0-6.0)
== END ==
PROVIDERS: PCP Internal Medicine; Visit Provider Internal Medicine
DX: E11.42 Type 2 diabetes mellitus with diabetic polyneuropathy (principal); E78.5 Hyperlipidemia, unspecified; I10 Essential (primary) hypertension; Z79.4 Long term (current) use of insulin
CPT/HCPCS: 36415; 80053; 80061; 83036; 85025

== ENCOUNTER → 2023-05-26 15:03 | Outpatient (CLI) | payer MEDICARE, SELFPAY ==
--- NOTE | 2023-05-26 15:09 | XR_ITS ---
FINAL REPORT CLINICAL HISTORY: RT FOOT PAIN, discoloring on top of foot COMPARISON: None FINDINGS: RIGHT FOOT 3 views of the right foot were obtained. There is no acute fracture or dislocation. Visualized joint spaces are normally aligned. Soft tissues are unremarkable. Calcaneal spurs are identified, both a Darlyn deformity and a plantar spur. There is degenerative change at the first metatarsal phalangeal joint consistent with osteoarthritis. IMPRESSION: First MTP joint degenerative change, consistent with osteoarthritis. No acute bony abnormality seen. Reviewed, Interpreted and Dictated by Levi Naqvi MD Transcribed by Jade Cabrera Authenticated and [facility]
== END ==
PROVIDERS: PCP Internal Medicine; Visit Provider Internal Medicine
DX: M79.671 Pain in right foot (principal)
CPT/HCPCS: 73630

== ENCOUNTER → 2023-06-03 16:08 | Outpatient (CLI) | payer MEDICARE, SELFPAY ==
[2023-06-03 16:57] LABS: Microscopic, Urine URINE MICROSCOPIC (MICROSCOPIC)
[2023-06-03 18:06] LABS: Appearance,Urine Clear (Clear); Color,Urine Yellow (Yellow)
[2023-06-03 18:07] LABS: Bacteria,Urine Trace /lpf; Bilirubin,Urine Negative (Negative); Blood, Urine Negative (Negative); Glucose,Urine (UA) 3+ (Negative); Ketones,Urine Negative (Negative); Leukocyte Esterase,Urine 2+ (Negative); Nitrate,Urine Negative (Negative); Protein,Urine Negative (Negative); Specific Gravity, Urine 1.015 (1.005-1.030); Urobilinogen,Urine 0.2 EU/dl (0.2)
== END ==
PROVIDERS: PCP Internal Medicine; Visit Provider Internal Medicine
DX: N39.0 Urinary tract infection, site not specified (principal)
CPT/HCPCS: 81001; 87086

== ENCOUNTER 2023-08-01 16:20 | Outpatient (CLI) | payer MEDICARE, SELFPAY ==
[2023-08-01 17:05] VITALS: BP 109/62; PULSE 72; RESP 18; TEMP 36.8; O2SAT 99
--- NOTE | 2023-08-01 17:19 | PC.NURSE ---
Bladder scanned patient; 43mL in bladder. Burton RN @ BS verified total volume in bladder.
--- NOTE | 2023-08-01 17:31 | PC.NURSE ---
In and out cath'd patient with Burton ROTH. Urinalysis sent up on patient. 50mL output from in and out cath
[2023-08-01 17:32] VITALS: BMI 32.8
--- NOTE | 2023-08-01 17:40 | PC.NURSE ---
Pt. heading to Dr.Lewis grigsby
[2023-08-01 18:26] LABS: Microscopic, Urine URINE MICROSCOPIC (MICROSCOPIC)
[2023-08-01 18:34] LABS: Appearance,Urine TURBID (Clear); Bilirubin,Urine Negative (Negative); Blood, Urine 2+ (Negative); Color,Urine YELLOW (Yellow); Glucose,Urine (UA) 3+ (Negative); Ketones,Urine Negative (Negative); Leukocyte Esterase,Urine 2+ (Negative); Nitrate,Urine Negative (Negative); Protein,Urine TRACE (Negative); Specific Gravity, Urine 1.025 (1.005-1.030); Urobilinogen,Urine 0.2 EU/dl (0.2)
[2023-08-01 18:51] LABS: Bacteria,Urine Trace /lpf; Squamous Epithelial Cell,Urine Occasional #/hpf (0-5); WBC,Urine TNTC #/hpf (0-3); Yeast,Urine 4+ /lpf
== END 2023-08-01 17:40 | disposition home or self-care (01) ==
PROVIDERS: PCP Internal Medicine; Visit Provider Internal Medicine
DX: N31.9 Neuromuscular dysfunction of bladder, unspecified (principal); N39.0 Urinary tract infection, site not specified; E11.42 Type 2 diabetes mellitus with diabetic polyneuropathy; Z79.4 Long term (current) use of insulin
CPT/HCPCS: 81001; 87086

== ENCOUNTER → 2023-08-17 20:41 | Outpatient (CLI) | payer MEDICARE, SELFPAY | PROVIDERS: PCP Internal Medicine; Visit Provider Internal Medicine | DX: N39.0 Urinary tract infection, site not specified (principal); B37.9 Candidiasis, unspecified; B96.89 Other specified bacterial agents as the cause of diseases classified elsewhere | CPT/HCPCS: 87086 ==

== ENCOUNTER 2023-09-27 20:22 | Observation (INO) | payer MEDICARE, SELFPAY ==
[2023-09-27] VITALS (8 sets, daily range): BP systolic 100–121; BP diastolic 44–73; PULSE 67–76; RESP 11–20; TEMP 36.4–36.6; O2SAT 97–100; BMI 32.3; BMI 34.6
--- NOTE | 2023-09-27 20:27 | PC.NURSE ---
Dr. Qucah removed fentanyl patch from left arm during assessment.
--- NOTE | 2023-09-27 20:30 | ECG_ITS ---
APPROVED REPORT Exam: Resting ECG HR:70 bpm ECG Measurements Heart Rate 70 AXES QRSd 211 QRS -66 QT 509 T 81 QTc 530 Conclusion ELECTRONIC VENTRICULAR PACEMAKER ABNORMAL RHYTHM ECG UNCONFIRMED REPORT Electronically signed by : Jimy Conley MD 09/28/2023 09:00:25
--- NOTE | 2023-09-27 20:38 | CT_ITS ---
PROCEDURE INFORMATION: Exam: CT Head Without Contrast Exam date and time: 09/27/2023 9:03 PM Age: 78 years old Clinical indication: Altered mental status/memory loss; Additional info: AMS, somnolent TECHNIQUE: Imaging protocol: Computed tomography of the head without contrast. Radiation optimization: All CT scans at this facility use at least one of these dose optimization techniques: automated exposure control; mA and/or kV adjustment per patient size (includes targeted exams where dose is matched to clinical indication); or iterative reconstruction. REPORTING DATA: Count of CT and Cardiac NM exams in prior 12 months: This patient has received [address] and 0 known cardiac nuclear medicine studies in the 12 months prior to the current study. COMPARISON: CT HEAD/BRAIN WO CON 02/04/2023 7:49 PM FINDINGS: Brain: Mild supratentorial white matter hypodensities are likely the sequela of chronic small vessel ischemic disease. Mild atrophy. No hemorrhage, edema, or mass effect. 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 Cerebral ventricles: No ventriculomegaly. Paranasal sinuses: Visualized sinuses are unremarkable. No fluid levels. Mastoid air cells: Visualized mastoid air cells are well aerated. Bones/joints: Unremarkable. No acute fracture. Soft tissues: Unremarkable. IMPRESSION: No acute intracranial findings.
--- NOTE | 2023-09-27 20:38 | CT_ITS ---
PROCEDURE INFORMATION: Exam: CT Cervical Spine Without Contrast Exam date and time: 09/27/2023 9:03 PM Age: 78 years old Clinical indication: Other: AMS; Additional info: AMS, somnolent TECHNIQUE: Imaging protocol: Computed tomography of the cervical spine without contrast. Radiation optimization: All CT scans at this facility use at least one of these dose optimization techniques: automated exposure control; mA and/or kV adjustment per patient size (includes targeted exams where dose is matched to clinical indication); or iterative reconstruction. REPORTING DATA: Count of CT and Cardiac NM exams in prior 12 months: This patient has received [address] and 0 known cardiac nuclear medicine studies in the 12 months prior to the current study. COMPARISON: CT HEAD/BRAIN WO CON 09/27/2023 9:03 PM FINDINGS: Bones/joints: No fracture or acute listhesis. Solid osseous fusion of the endplates from C4 through C6. Mild C2-C3 and C3-C4 and severe C6-C7 degenerative disc disease. Moderate/severe bilateral facet arthropathy from C2-C3 through C7-T1. 1 mm of grade 1 anterolisthesis of C3 over C4 secondary to facet arthropathy. Mild central canal stenosis at C5-C6. No significant neural foraminal stenosis. Lungs: Lung apices are normal. Vasculature: Atherosclerotic plaque in the carotid and vertebral arteries. Soft tissues: Unremarkable. IMPRESSION: 1. No acute findings. 2. Osseous fusion from C4 through C6. 3. Moderate cervical spine degenerative change.
--- NOTE | 2023-09-27 20:39 | XR_ITS ---
PROCEDURE INFORMATION: Exam: XR Chest Exam date and time: 09/27/2023 9:09 PM Age: 78 years old Clinical indication: Other: AMS TECHNIQUE: Imaging protocol: Radiologic exam of the chest. Views: 1 view. COMPARISON: CR XR CHEST PORTABLE 02/04/2023 6:32 PM FINDINGS: Tubes, catheters and devices: Left subclavian pacemaker leads overlie the right atrium and right ventricle. Lungs: Lingular subsegmental atelectasis. Pleural spaces: Unremarkable. No pleural effusion. No pneumothorax. Heart/Mediastinum: Unremarkable. No cardiomegaly. Bones/joints: Unremarkable. IMPRESSION: 1. Left subclavian pacemaker leads overlie the right atrium and right ventricle. 2. Lingular subsegmental atelectasis.
[2023-09-27 20:54] LABS: VBG HCO3 27.9 mmol/L (23-30); VBG Oxygen Saturation 97.8 % (50-70); VBG PH 7.27 mmol/L (7.31-7.41); VBG PO2 113.6 mmol/L (28-40); VBG Total CO2 29.8 mmol/L (23-27)
[2023-09-27 20:57] LABS: VBG PCO2 62.2 mmol/L (35-51)
[2023-09-27 21:02] LABS: Chloride 104 mmol/L (98-107)
[2023-09-27 21:03] LABS: Basophils % 0.2 % (0.1-2.0); Eosinophils # 0.6 K/mm3 (0.0-0.4); Eosinophils % 8.7 % (0.1-12.0); Hematocrit 27.8 % (37.0-47.0); Hemoglobin 8.6 g/dL (12.2-16.2); Lymphocytes % 30.6 % (10-50); Mean Corpuscular Hemoglobin 28.9 pg (27.0-31.2); Mean Corpuscular Volume 93.1 fl (81-99); Mean Platelet Volume 9.4 fl (7.4-10.4); Monocytes # 0.3 K/mm3 (0.1-1.0); Monocytes % 5.1 % (1.7-9.3); Neutrophils # 3.7 K/mm3 (1.8-7.8); Neutrophils % 55.4 % (37.0-80.0); Platelet Count 156 K/mm3 (142-424); Potassium 4.5 mmoL/L (3.5-5.1); Red Blood Count 2.98 M/mm3 (4.20-5.40); Red Cell Distribution Width 17.8 % (11.5-17.5); Sodium 140 mmol/L (136-145); White Blood Count 6.7 K/mm3 (4.8-10.8)
[2023-09-27 21:05] LABS: Alanine Aminotransferase 16 U/L (12-78); Anion Gap 8.5 mEq/L (5-15); Aspartate Amino Transferase 26 U/L (14-36); Blood Urea Nitrogen 30 mg/dl (7-17); Carbon Dioxide 32 mmol/L (22.0-30.0); Creatinine Clearance Estimated 42 mL/min (50-200); Estimated Glomerular Filt Rate 31 ml/min (>60); GFR (African American) 38 ML/MIN (>60)
[2023-09-27 21:06] LABS: Albumin Level 3.5 g/dl (3.5-5.0); Albumin/Globulin Ratio 1.3 (1.1-1.8); Alkaline Phosphatase 86 U/L (38-126); Bilirubin,Total 0.5 mg/dl (0.2-1.3); Globulin 2.8 g/dL (1.3-3.2); Glucose 100 mg/dl (74-100); Total Protein,Serum 6.3 g/dl (6.3-8.2)
--- NOTE | 2023-09-27 21:06 | PC.NURSE ---
pt to radiology
[2023-09-27 21:09] LABS: Acetaminophen < 10 ug/ml (10-30); Salicylate < 1.0 mg/dL (2.0-20.0)
[2023-09-27 21:18] LABS: Troponin I 0.02 ng/ml (0.00-0.034)
--- NOTE | 2023-09-27 21:19 | HMH.ITSTN ---
Patient's chart states contrast allergy; pt family stating they think she can have contrast. Unable to verify allergy. Spoke to Dr. Quach who instructed to just do scans without contrast at this time.
[2023-09-27 21:38] LABS: Microscopic, Urine URINE MICROSCOPIC (MICROSCOPIC)
[2023-09-27 21:40] LABS: Bilirubin,Urine Negative (Negative); Blood, Urine TRACE-L (Negative); Color,Urine YELLOW (Yellow); Glucose,Urine (UA) 3+ (Negative); Ketones,Urine Negative (Negative); Leukocyte Esterase,Urine 1+ (Negative); Nitrate,Urine Negative (Negative); Protein,Urine Negative (Negative); Urobilinogen,Urine 0.2 EU/dl (0.2)
[2023-09-27 21:50] LABS: Appearance,Urine Slightly Cloudy (Clear)
[2023-09-27 22:08] LABS: Bacteria,Urine 1+ /lpf
[2023-09-27 22:17] LABS: Amphetamine/Metha Screen,Urine Negative ng/ml (<1000); Barbiturates Screen,Urine Negative ng/ml (<200); Benzodiazepines Screen,Urine Positive ng/ml (<200); Cannabinoid Screen,Urine Negative ng/ml (<50); Cocaine Screen,Urine Negative ng/ml (<300); Methadone Screen,Urine Negative ng/ml (<300); Opiate Screen,Urine Negative ng/ml (<300); Phencyclidine Screen,Urine Negative ng/ml (<25)
--- NOTE | 2023-09-27 22:23 | PC.NURSE ---
Notified house information technology administrator of need for bed assignment for benzodiazapine overdose admission.
--- NOTE | 2023-09-27 22:26 | EXP.HP ---
History of Present Illness *Admission Date: 09/27/23 *Reason for visit:: accidentally benzo overdose *History of present illness: This is a 78-year-old female with a history of prior CVA with right side weakness and dysphagia, chair bound, obesity, rheumatoid arthritis, MDD, type 2 diabetes, peripheral neuropathy, CKD, CHF, GLENNY, and COPD on home oxygen who presented to the emergency department for evaluation with concern for somnolence in the setting of possible benzodiazepine overdose. History obtained form bedside and ER documentation. The patient's , who is caregiver and manages her medications at home, stated he was suppose to give her Zofran for nausea and vomiting, however he realized later that it was not the Zofran that she had been taking, and said it was alprazolam. Patient also on home oxycodone, gabapentin and fentanyl pacth. He notes that she seems very sleepy and she is slow to arouse, but he does not note any new focal neurologic deficits or other concerns. She was well prior to taking the medications around 1500. No recent fevers or infectious symptoms noted. Admitted for treatment and management. [facility] Disclaimer: The information contained in this section may have been updated after the patient was seen, as this information can be updated by other users. Medical History Chronic narcotic use Chronic pain disorder CKD (chronic kidney disease) stage 3, GFR 30-59 ml/min CVA (cerebral vascular accident) Degenerative joint disease (DJD) of lumbar spine Diabetes Diabetic neuropathy Dysphagia Frequent headaches GERD (gastroesophageal reflux disease) Hypertension Lumbosacral radiculopathy due to degenerative joint disease of spine Obese Pacemaker Polypharmacy Severe sleep apnea Surgical History H/O: hysterectomy History of carpal tunnel surgery History of colon resection History of spinal surgery Family History Other Diabetes Social History Smoking Status: Never smoker second hand exposure: No alcohol intake: never substance use type: denies use current occupational status: disabled Travel in the last 8 weeks: None household members: spouse housing: other number of children: 3 current occupational exposures/hazards: No caffeine: Yes Review of Systems Review of Systems Review of systems:: unable to obtain Meds Home Medications and Allergies Home Medications Medication Instructions Recorded Confirmed Type apixaban 5 mg tablet (Eliquis) 5 mg PO BID 09/27/23 09/27/23 History atorvastatin 40 mg tablet 40 mg PO HS 09/27/23 09/27/23 History bisoprolol fumarate 10 mg tablet 10 mg PO DAILY 09/27/23 09/27/23 History empagliflozin 10 mg tablet 10 mg PO DAILY 09/27/23 09/28/23 History (Jardiance) escitalopram oxalate 5 mg tablet 10 mg PO DAILY 09/27/23 09/28/23 History famotidine 20 mg tablet 20 mg PO BID 09/27/23 09/27/23 History fentanyl 25 mcg/hr transdermal 25 mcg transdermal Q72H 09/27/23 09/27/23 History patch furosemide 40 mg tablet 40 mg PO DAILYP PRN Edema 09/27/23 09/28/23 History gabapentin 600 mg tablet 600 mg PO QID 09/27/23 09/27/23 History hydroxychloroquine 200 mg tablet 200 mg PO BID 09/27/23 09/28/23 History insulin aspart U-100 100 unit/mL 10 unit SQ DAILYP PRN Hyperglycemia 09/27/23 09/28/23 History (3 mL) subcutaneous pen (Novolog FlexPen U-100 Insulin aspart) insulin glargine 100 unit/mL 35 unit SQ HS 09/27/23 09/28/23 History subcutaneous solution (Lantus U-100 Insulin) ondansetron HCl 4 mg tablet 4 mg PO Q8HP PRN Nausea 09/27/23 09/27/23 History oxycodone 5 mg tablet 10 mg PO QIDP PRN Pain (Scale 09/27/23 09/27/23 History Score 7-10) pantoprazole 40 mg tablet,delayed 40 mg PO BID 09/27/23 09/27/23 History release acetaminophen 500 mg tablet 500 mg PO BIDP PRN Pain 09/28/23 09/28/23 History melatonin 3 mg tablet 3 mg PO DAILYP PRN Sleep 09/28/23 09/28/23 History polyethylene glycol 3350 17 gram 17 g PO BID Constipation 09/28/23 09/28/23 History oral powder packet New Prescriptions to Start Prescriptions: Allergies Allergy/AdvReac Type Severity Reaction Status Date / Time amitriptyline [From Elavil] Allergy Severe G-[id number]-WHHU/THROAT; Verified 08/11/23 14:29 SEIZURES chlorpromazine Allergy Severe SEIZURES Verified 08/11/23 14:29 [From Thorazine] dichloralphenazone Allergy Severe S-SWELLS-OR Verified 08/11/23 14:29 [From Midrin] AL/THROAT isometheptene [From Midrin] Allergy Severe S-SWELLS-OR Verified 08/11/23 14:29 AL/THROAT prochlorperazine Allergy Severe SEIZURES Verified 08/11/23 14:29 [From Compazine] adhesive tape Allergy Intermediate I-RASH Verified 08/11/23 14:29 aspirin Allergy Intermediate COLD Verified 08/11/23 14:29 SWEATS , N/V cyclobenzaprine Allergy Unknown Unknown Verified 08/11/23 14:29 [From FLEXERIL] allergy reaction duloxetine [DULOXETINE] Allergy Unknown Unknown Verified 08/11/23 14:29 allergy reaction Iodinated Contrast Media Allergy Unknown Unknown Verified 08/11/23 14:29 [IODINATED CONTRAST MEDIA - allergy ORAL AND] reaction Sulfa (Sulfonamide Allergy Unknown CONTRAINDICATED Verified 08/11/23 14:29 Antibiotics) WITH ASTHMA trimethoprim [TRIMETHOPRIM] Allergy Unknown Unknown Verified 08/11/23 14:29 allergy reaction leflunomide Allergy rash, Verified 08/11/23 14:29 redness Macrolide Antibiotics Allergy rash, Verified 08/11/23 14:29 redness Beta-Blockers AdvReac Severe MAKES Verified 08/11/23 14:29 (Beta-Adrenergic Bloc ASTHMA WORSE caffeine [From Cafergot] AdvReac Mild NA-NAUSEA Verified 08/11/23 14:29 ergotamine [From Cafergot] AdvReac Mild NA-NAUSEA Verified 08/11/23 14:29 pregabalin [From Lyrica] AdvReac Mild TOO Verified 08/11/23 14:29 SEDATED NSAIDS (Non-Steroidal AdvReac Unknown Verified 08/11/23 14:29 Anti-Inflamma allergy reaction Exam Data for Last 24 hours Vital signs and Labs for Last 24 Hours: Temp Pulse Resp BP Pulse Ox O2 Del Method O2 Flow Rate 97.8 F 70 13 116/53 L 100 Room Air 2 09/27/23 20:22 09/27/23 22:01 09/27/23 22:01 09/27/23 22:01 09/27/23 22:01 09/27/23 22:01 09/27/23 20:22 Laboratory Results - last 24 hr 09/27/23 20:38: VBG pH 7.27 L, VBG pCO2 62.2 H, VBG pO2 113.6 H, VBG HCO3 27.9, VBG Total CO2 29.8 H, VBG O2 Saturation 97.8 H, VBG Base Excess 1.0 09/27/23 20:43: WBC 6.7, RBC 2.98 L, Hgb 8.6 L, Hct 27.8 L, MCV 93.1, MCH 28.9, MCHC 31.0 L, RDW 17.8 H, Plt Count 156, MPV 9.4, Neut % (Auto) 55.4, Lymph % (Auto) 30.6, [place] % (Auto) 5.1, Eos % (Auto) 8.7, Baso % (Auto) 0.2, Neut # (Auto) 3.7, Lymph # (Auto) 2.0, [place] # (Auto) 0.3, Eos # (Auto) 0.6 H, Baso # (Auto) 0.0, Sodium 140, Potassium 4.5, Chloride 104, Carbon Dioxide 32 H, Anion Gap 8.5, BUN 30 H, Creatinine 1.60 H, Estimated Creat Clear 42, Estimated GFR 31 L, Est GFR ( Amer) 38 L, Glucose 100, Calcium 8.0 L, Total Bilirubin 0.5, AST 26, ALT 16, Alkaline Phosphatase 86, Troponin I 0.02, Total Protein 6.3, Albumin 3.5, Globulin 2.8, Albumin/Globulin Ratio 1.3, Salicylates < 1.0 L, Acetaminophen < 10 L 09/27/23 21:33: Urine Color Yellow, Urine Appearance Slightly cloudy, Urine pH 6.0, Ur Specific [place] 1.020, Urine Protein Negative, Urine Glucose (UA) 3+, Urine Ketones Negative, Urine Blood Trace-l, Urine Nitrate Negative, Urine Bilirubin Negative, Urine Urobilinogen 0.2, Ur Leukocyte Esterase 1+ A, Urine RBC 5-10, Urine WBC 10-20, Ur Squamous Epith Cells 3-5, Urine Bacteria 1+, Urine Opiates Screen Negative, Urine Methadone Screen Negative, Ur Barbituates Screen Negative, Ur Phencyclidine Scrn Negative, Ur Amphetamines Screen Negative, U Benzodiazepines Scrn Positive H, Urine Cocaine Screen Negative, U Marijuana (THC) Screen Negative I & O for Last 24 hours: Intake & Output 09/24/23 09/25/23 09/26/23 09/27/23 23:59 23:59 23:59 23:59 Weight 90.718 kg Constitutional Constitutional: morbidly obese and somnolent *Routine HEENT Exam Head: Present normocephalic and atraumatic Eye: Present EOMI, PERRL and normal accommodation ENT: Present mucous membranes moist *Routine Neck Exam Neck: Present supple, full ROM and trachea midline *Routine Respiratory Exam Respiratory: Present normal respiratory effort and symmetric chest movement; Absent respiratory distress *Routine Cardiovascular Exam Cardiovascular: Present RRR, Normal S1 and Normal S2 *Routine Abdominal Exam Abdominal: Present soft, normoactive bowel sounds and obese; Absent organomegaly *Routine Rectal Exam Rectal:: deferred *Routine Genitalia Exam Genitalia:: deferred *Routine Extremities Exam Extremities: Present full ROM and pulses intact; Absent cyanosis, clubbing or edema *Routine Skin Exam Skin: Present intact, dry and warm *Routine Neurological Exam Neurological: Present normal reflexes, altered mental status and moving all extremities Routine Psychiatric Exam Psychiatric: Present unable to assess H&P: Result Imaging and Cardiology Chest x-ray: Status: image reviewed by me, Preliminary report and final report EKG: Status: image reviewed by me and Preliminary report CT scan - head: Status: image reviewed by me, Preliminary report and final report Assessment and Plan *Assessment and plan (1) AMS (altered mental status): Status: Acute Qualifiers: Altered mental status type: somnolence Qualified Code(s): R40.0 - Somnolence Category: Medical Code(s): R41.82 - Altered mental status, unspecified (2) Benzodiazepine overdose: Status: Acute Qualifiers: Encounter type: initial encounter Injury intent: accidental or unintentional Qualified Code(s): T42.4X1A - Poisoning by benzodiazepines, accidental (unintentional), initial encounter Category: Medical Code(s): T42.4X1A - Poisoning by benzodiazepines, accidental (unintentional), initial encounter (3) CKD (chronic kidney disease) stage 3, GFR 30-59 ml/min: Status: Acute Qualifiers: Chronic kidney disease stage 3 subtype: stage 3a (GFR 45-59) Qualified Code(s): N18.31 - Chronic kidney disease, stage 3a Category: Medical Code(s): N18.30 - Chronic kidney disease, stage 3 unspecified (4) Diabetes: Status: Chronic Qualifiers: Diabetes mellitus complication status: with other specified complication 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: with custodial use Diabetes mellitus type: type 2 Qualified Code(s): E11.69 - Type 2 diabetes mellitus with other specified complication; Z79.4 - supervisor intermediates (current) use of insulin Category: Medical Code(s): E11.9 - Type 2 diabetes mellitus without complications (5) Hypertension: Status: Acute Qualifiers: Hypertension type: primary hypertension Qualified Code(s): I10 - Essential (primary) hypertension Category: Medical Code(s): I10 - Essential (primary) hypertension (6) Polypharmacy: Status: Chronic Category: Medical Code(s): Z79.899 - Other watermelon harvesting supervisor (current) drug therapy (7) GERD (gastroesophageal reflux disease): Status: Chronic Qualifiers: Esophagitis presence: without esophagitis Qualified Code(s): K21.9 - Gastro-esophageal reflux disease without esophagitis Category: Medical Code(s): K21.9 - Gastro-esophageal reflux disease without esophagitis (8) Dysphagia: Status: Acute Qualifiers: Dysphagia type: unspecified Qualified Code(s): R13.10 - Dysphagia, unspecified Category: Medical Code(s): R13.10 - Dysphagia, unspecified (9) Chronic narcotic use: Status: Chronic Category: Social Hx Code(s): F11.90 - Opioid use, unspecified, uncomplicated (10) Severe sleep apnea: Status: Chronic Category: Medical Code(s): G47.30 - Sleep apnea, unspecified Plan 78-year-old female with a history of prior CVA with right side weakness and dysphagia, chair bound, obesity, rheumatoid arthritis, MDD, type 2 diabetes, peripheral neuropathy, CKD, CHF, GLENNY, and COPD on home oxygen who presented to the emergency department for evaluation with concern for somnolence in the setting of possible benzodiazepine overdose. Upon arrival patient is easily aroused to voice, but answers questions appropriately and follows commands. patient underwent CT of head and CXR. Imaging reviewed. there are negative for acute process. labs are unremarkable. Discussion made with ER. Agreed for admission. Plan as follow: -AMS secondary to accidental Benzo over dose in the setting of polypharmacy: Admit patient. Dispo Med-surg start Continuous cardiac telemetry IV fluid NS @100ml monitor VS, HR per unit protocols -CKD; monitor fluid I/OS renal output epeat labs in the morning Hx of Diabetes, HTN, COPD, GLENNY< PPM: medication regimen on hold until mentation improve baselien AOx3. bed-chair bound - Hx of dyphagia s/p CVA: NPO unitl mentation improve. aspiration precaution, - Opiod Use: removed fentanyl patch hold opiod On levonox for DVT ppx. Home eliquis will be resume when safe to swallow on Protonix Full code Rounded on patient after nurse practitioner. Personally examined and interviewed patient. Agree with exam findings and care plan as documented. Discussed patient's polypharmacy at previous visits. Strong concern for overmedication. Seeing improvement this morning with holding of her benzodiazepines. If improved to baseline, anticipate discharge later today.
--- NOTE | 2023-09-27 22:40 | PC.NURSE ---
Nurse to nurse report to Kalyan ROTH
--- NOTE | 2023-09-27 22:47 | PC.NURSE ---
pt to floor via stretcher at this time
[2023-09-27] MEDS: 0.9 % SODIUM CHLORIDE 1000ML 1,000 ML 75 ML IV (22:58)
[2023-09-27 23:58] LABS: Troponin I 0.02 ng/ml (0.00-0.034)
--- NOTE | 2023-09-28 00:20 | ED_ITS ---
Discharge Plan Disposition Patient Disposition: Admitted Condition: Fair Clinical Impressions Clinical Impression: AMS (altered mental status), Benzodiazepine overdose Discharge ED Provider: Peg Quach General Adult HPI General Chief complaint: Neuro Symptoms/Deficit Stated complaint: possible stroke Time Seen by Provider: 09/27/23 20:37 Mode of Arrival: Wheelchair Source of Information: Patient and Spouse Limitations: No Limitations Description of Symptoms (Recalled from ER Triage Doc. by RN): Patient's spouse reports that patient is lethargic and slow to rouse. He reports worries of a stroke. States that he may have taken extra alprazolam to patient instead of medication he was intending to give. Patient takes oxycodone and wears a fentanyl patch as well. Upon triage, patient is easily aroused to voice, pale, but answers questions appropriately and follows commands. Patient's spouse reports last known normal was approximately noon today. History of Present Illness HPI narrative: This patient is a 78-year-old female with a history of prior CVA, obesity, rheumatoid arthritis, MDD, type 2 diabetes, peripheral neuropathy, CKD, CHF, GLENNY, and COPD on home oxygen who presented to the emergency department for evaluation with concern for somnolence in the setting of possible benzodiazepine overdose. The patient's , who controls her medications at home, notes that he had left out her Zofran so that she can take it for nausea and vomiting, however he realized later that it was not the Zofran that she had been taking, and said it was alprazolam. He notes that she is supposed to take 1 tablet of that 3 times a day and it is supposed to be spaced out from her opioids, however she took as many as 3 or 4 at once today potentially. He also notes that she has a fentanyl patch on and had received her evening oxycodone. He notes that she seems very sleepy and she is slow to arouse, but he does not note any new focal neurologic deficits or other concerns. She was well prior to taking the medications around 1500. No recent fevers or infectious symptoms noted. Related Data Home Medications Medication Instructions Recorded Confirmed apixaban 5 mg tablet (Eliquis) 5 mg PO BID 09/27/23 09/27/23 atorvastatin 40 mg tablet 40 mg PO HS 09/27/23 09/27/23 bisoprolol fumarate 10 mg tablet 10 mg PO DAILY 09/27/23 09/27/23 empagliflozin 10 mg tablet 10 mg PO DAILY 09/27/23 09/27/23 (Jardiance) escitalopram oxalate 5 mg tablet 10 mg PO DAILY 09/27/23 09/27/23 famotidine 20 mg tablet 20 mg PO BID 09/27/23 09/27/23 fentanyl 25 mcg/hr transdermal 25 mcg transdermal Q72H 09/27/23 09/27/23 patch furosemide 40 mg tablet 40 mg PO DAILYP PRN Edema 09/27/23 09/27/23 gabapentin 600 mg tablet 600 mg PO QID 09/27/23 09/27/23 hydroxychloroquine 200 mg tablet 200 mg PO BID 09/27/23 09/27/23 insulin aspart U-100 100 unit/mL 10 unit SQ DAILYP PRN Hyperglycemia 09/27/23 09/27/23 (3 mL) subcutaneous pen (Novolog FlexPen U-100 Insulin aspart) insulin glargine 100 unit/mL 35 unit SQ HS 09/27/23 09/27/23 subcutaneous solution (Lantus U-100 Insulin) linaclotide 290 mcg capsule 290 mcg PO DAILYP PRN Constipation 09/27/23 09/27/23 (Linzess) ondansetron HCl 4 mg tablet 4 mg PO Q8HP PRN Nausea 09/27/23 09/27/23 oxycodone 5 mg tablet 10 mg PO QIDP PRN Pain (Scale 09/27/23 09/27/23 Score 7-10) pantoprazole 40 mg tablet,delayed 40 mg PO BID 09/27/23 09/27/23 release Allergies Allergy/AdvReac Type Severity Reaction Status Date / Time amitriptyline [From Elavil] Allergy Severe [id number]/THROAT; Verified 08/11/23 14:29 SEIZURES chlorpromazine Allergy Severe SEIZURES Verified 08/11/23 14:29 [From Thorazine] dichloralphenazone Allergy Severe S-SWELLS-OR Verified 08/11/23 14:29 [From Midrin] AL/THROAT isometheptene [From Midrin] Allergy Severe S-SWELLS-OR Verified 08/11/23 14:29 AL/THROAT prochlorperazine Allergy Severe SEIZURES Verified 08/11/23 14:29 [From Compazine] adhesive tape Allergy Intermediate I-RASH Verified 08/11/23 14:29 aspirin Allergy Intermediate COLD Verified 08/11/23 14:29 SWEATS , N/V cyclobenzaprine Allergy Unknown Unknown Verified 08/11/23 14:29 [From FLEXERIL] allergy reaction duloxetine [DULOXETINE] Allergy Unknown Unknown Verified 08/11/23 14:29 allergy reaction Iodinated Contrast Media Allergy Unknown Unknown Verified 08/11/23 14:29 [IODINATED CONTRAST MEDIA - allergy ORAL AND] reaction Sulfa (Sulfonamide Allergy Unknown CONTRAINDICATED Verified 08/11/23 14:29 Antibiotics) WITH ASTHMA trimethoprim [TRIMETHOPRIM] Allergy Unknown Unknown Verified 08/11/23 14:29 allergy reaction leflunomide Allergy rash, Verified 08/11/23 14:29 redness Macrolide Antibiotics Allergy rash, Verified 08/11/23 14:29 redness Beta-Blockers AdvReac Severe MAKES Verified 08/11/23 14:29 (Beta-Adrenergic Bloc ASTHMA WORSE caffeine [From Cafergot] AdvReac Mild NA-NAUSEA Verified 08/11/23 14:29 ergotamine [From Cafergot] AdvReac Mild NA-NAUSEA Verified 08/11/23 14:29 pregabalin [From Lyrica] AdvReac Mild TOO Verified 08/11/23 14:29 SEDATED NSAIDS (Non-Steroidal AdvReac Unknown Verified 08/11/23 14:29 Anti-Inflamma allergy reaction PFSH PFSH Disclaimer: The information contained in this section may have been updated after the patient was seen, as this information can be updated by other users. Medical History Chronic narcotic use Chronic pain disorder CKD (chronic kidney disease) stage 3, GFR 30-59 ml/min CVA (cerebral vascular accident) Degenerative joint disease (DJD) of lumbar spine Diabetes Diabetic neuropathy Dysphagia Frequent headaches GERD (gastroesophageal reflux disease) Hypertension Lumbosacral radiculopathy due to degenerative joint disease of spine Obese Pacemaker Polypharmacy Severe sleep apnea Surgical History H/O: hysterectomy History of carpal tunnel surgery History of colon resection History of spinal surgery Family History Other Diabetes Social History Smoking Status: Never smoker second hand exposure: No alcohol intake: never substance use type: denies use current occupational status: disabled Travel in the last 8 weeks: None household members: spouse housing: other number of children: 3 current occupational exposures/hazards: No caffeine: Yes ROS Obtained: Yes All systems reviewed & no additional complaints except as documented Physical Exam General General appearance: in no apparent distress, obtunded and obese Comment: Somnolent but arouses to voice and answers questions appropriately Head Head exam: atraumatic and normocephalic Eye Eye exam: Present normal appearance, PERRL and EOMI ENT ENT exam: Present normal exam, normal oropharynx, mucous membranes moist and normal external ear exam Neck Neck exam: Present normal inspection, full ROM and trachea midline; Absent tenderness Chest Chest inspection: Present normal inspection and symmetric chest wall rise; Absent tenderness Respiratory Respiratory exam: Present normal lung sounds bilaterally; Absent respiratory distress, wheezes, stridor or accessory muscle use Cardiovascular Cardiovascular exam: Present regular rate and normal rhythm Abdominal Exam Abdominal exam: Present soft; Absent distention, tenderness or guarding Extremities Exam Extremities exam: Present normal inspection, full ROM and normal capillary refill; Absent tenderness or edema Back Exam Back exam: Present normal inspection and full ROM; Absent tenderness Neurological Exam Neurological exam: Present oriented X3, CN II-XII intact and normal gait; Absent motor sensory deficit Expanded Neurological Exam Patient oriented to: Present person, place and time Speech: Present fluid speech Coma scale eye opening: To voice Coma scale motor response: Obeys commands Coma scale verbal response: Oriented Coma scale total: 14 Psychiatric Psychiatric exam: Present normal affect and normal mood Skin Skin exam: Present warm and dry Medical Decision Making Medical Records Medical records reviewed: Yes I reviewed the patient's medical records. Abraham Inquiry Pt receiving controlled substance: No Vital Signs: 09/27/23 20:22 09/27/23 20:23 09/27/23 20:31 Temperature 97.8 F Temperature Source Oral Pulse Rate 73 70 Pulse Rate [Left Radial] 75 Respiratory Rate 20 20 18 Blood Pressure 116/61 119/72 Blood Pressure [Right Arm] 116/61 Blood Pressure Mean 80 85 Blood Pressure Mean [Right Arm] 79 Blood Pressure Source Blood Pressure Source [Right Arm] Automatic Cuff Blood Pressure Position Blood Pressure Position [Right Arm] Sitting 02 Sat by Pulse Oximetry 98 97 99 Oxygen Delivery Method Nasal Cannula Room Air Room Air Oxygen Flow Rate (LPM) 2 09/27/23 21:31 09/27/23 22:01 09/27/23 22:31 Temperature Temperature Source Pulse Rate 76 70 67 Pulse Rate [Left Radial] Respiratory Rate 12 13 11 L Blood Pressure 100/44 L 116/53 L 107/52 L Blood Pressure [Right Arm] Blood Pressure Mean 62 74 72 Blood Pressure Mean [Right Arm] Blood Pressure Source Blood Pressure Source [Right Arm] Blood Pressure Position Blood Pressure Position [Right Arm] 02 Sat by Pulse Oximetry 100 100 100 Oxygen Delivery Method Room Air Room Air Nasal Cannula Oxygen Flow Rate (LPM) 2 09/27/23 22:45 Temperature 97.8 F Temperature Source Oral Pulse Rate 67 Pulse Rate [Left Radial] Respiratory Rate 11 L Blood Pressure 107/52 L Blood Pressure [Right Arm] Blood Pressure Mean Blood Pressure Mean [Right Arm] Blood Pressure Source Automatic Cuff Blood Pressure Source [Right Arm] Blood Pressure Position Sitting Blood Pressure Position [Right Arm] 02 Sat by Pulse Oximetry Oxygen Delivery Method Nasal Cannula Oxygen Flow Rate (LPM) 2 Lab Data Lab results reviewed: Yes I reviewed the patient's lab results. Lab Results 09/27/23 20:38: VBG pH 7.27 L, VBG pCO2 62.2 H, VBG pO2 113.6 H, VBG HCO3 27.9, VBG Total CO2 29.8 H, VBG O2 Saturation 97.8 H, VBG Base Excess 1.0 09/27/23 20:43: WBC 6.7, RBC 2.98 L, Hgb 8.6 L, Hct 27.8 L, MCV 93.1, MCH 28.9, MCHC 31.0 L, RDW 17.8 H, Plt Count 156, MPV 9.4, Neut % (Auto) 55.4, Lymph % (Auto) 30.6, [place] % (Auto) 5.1, Eos % (Auto) 8.7, Baso % (Auto) 0.2, Neut # (Auto) 3.7, Lymph # (Auto) 2.0, [place] # (Auto) 0.3, Eos # (Auto) 0.6 H, Baso # (Auto) 0.0, Sodium 140, Potassium 4.5, Chloride 104, Carbon Dioxide 32 H, Anion Gap 8.5, BUN 30 H, Creatinine 1.60 H, Estimated Creat Clear 42, Estimated GFR 31 L, Est GFR ( Amer) 38 L, Glucose 100, Calcium 8.0 L, Total Bilirubin 0.5, AST 26, ALT 16, Alkaline Phosphatase 86, Troponin I 0.02, Total Protein 6.3, Albumin 3.5, Globulin 2.8, Albumin/Globulin Ratio 1.3, Salicylates < 1.0 L, Acetaminophen < 10 L 09/27/23 21:33: Urine Color Yellow, Urine Appearance Slightly cloudy, Urine pH 6.0, Ur Specific [place] 1.020, Urine Protein Negative, Urine Glucose (UA) 3+, Urine Ketones Negative, Urine Blood Trace-l, Urine Nitrate Negative, Urine Bilirubin Negative, Urine Urobilinogen 0.2, Ur Leukocyte Esterase 1+ A, Urine RBC 5-10, Urine WBC 10-20, Ur Squamous Epith Cells 3-5, Urine Bacteria 1+, Urine Opiates Screen Negative, Urine Methadone Screen Negative, Ur Barbituates Screen Negative, Ur Phencyclidine Scrn Negative, Ur Amphetamines Screen Negative, U Benzodiazepines Scrn Positive H, Urine Cocaine Screen Negative, U Marijuana (THC) Screen Negative 09/27/23 20:43 09/27/23 20:43 Orders (Tests/Meds): ED MEDICATIONS Generic Name Dose Route Start Last Admin Trade Name Freq PRN Reason Stop Dose Admin Enoxaparin Sodium 40 mg 09/28/23 09:00 Enoxaparin 40mg/0.4ml Syringe SQ 10/28/23 08:59 DAILY DENISE Sodium Chloride 1,000 mls @ 75 mls/hr 09/27/23 22:30 09/27/23 22:58 Sod Chlor 0.9% 1000ml Bag IV 10/27/23 22:29 75 mls/hr .[id number] DENISE Administration Pantoprazole Sodium 40 mg 09/28/23 09:00 Pantoprazole 40mg Tablet PO 10/28/23 08:59 DAILY DENISE ORDERS Category Date Time Status CT cervical spine wo con Stat Cat Scan 09/27/23 20:[address] head/brain wo con Stat Cat Scan 09/27/23 20:38 Completed CXR --portable [XR chest portable] Stat Exams 09/27/23 20:39 Completed Acetaminophen Stat Lab 09/27/23 20:43 Completed Complete Blood Count Auto Diff AMLAB Lab 09/28/23 06:00 Ordered Complete Blood Count Auto Diff Stat Lab 09/27/23 20:43 Completed Comprehensive Metabolic Panel AMLAB Lab 09/28/23 06:00 Ordered Comprehensive Metabolic Panel Stat Lab 09/27/23 20:43 Completed Drug Screen,Urine Stat Lab 09/27/23 21:33 Completed Magnesium AMLAB Lab 09/28/23 06:00 Ordered Salicylate Stat Lab 09/27/23 20:43 Completed Troponin I Q3H Lab 09/27/23 23:30 Completed Troponin I Q3H Lab 09/28/23 02:45 Ordered Troponin I Stat Lab 09/27/23 20:43 Completed Urinalysis and Microscopic Stat Lab 09/27/23 21:33 Completed Urine Culture Stat Micro 09/27/23 21:33 Received Venous Blood Gas Stat RT 09/27/23 20:38 Completed ECG Data Tracing #1: I reviewed this ECG and interpreted as documented below: Ventricularly paced rhythm with a ventricular rate of [address] changes concerning for ischemia. ECG initial impression date: 09/28/23 ECG initial impression time: 21:22 Medical Decision Narrative: In summary, this patient is a 78-year-old female presenting to the Emergency Department for evaluation of somnolence in the setting of possible benzodiazepine overdose. Differential diagnoses considered include but are not limited to overdose, CVA, hypoglycemia, urinary tract infection, other cause of altered mental status. Ruling out the most morbid conditions drove assessment. On exam, the patient is somnolent but neurologically intact. She does have a fentanyl patch on, which was removed given her somnolence. She is maintaining normal vital signs on her home oxygen. Workup included lab evaluation as well as CT head, chest x-ray, and EKG. I independently interpreted CT and x-ray prior to the radiologist read and noted no obvious acute areas of ischemia, intracranial hemorrhage, pneumonia, or other concerns. Please see their read for final interpretation. Labs were obtained that demonstrated mild respiratory acidosis. Patient also has chronic anemia. No acute findings noted at this time otherwise. Her creatinine appears to be around her baseline.. On multiple subsequent reassessments, the patient continues to be somnolent. I suspect this is due to polypharmacy and possible benzodiazepine overdose. Given this, feel she would benefit from admission for continued monitoring. I called and had an interactive discussion with the hospitalist who graciously admitted the patient for further evaluation and management. She was admitted in stable condition. Critical Care Critical Care Time Critical Care Time: No
[2023-09-28 00:54] VITALS: PULSE 80
--- NOTE | 2023-09-28 00:57 | PC.NURSE ---
Patient's has brought her home medications, but NOT the narcotic pain medications. He refuses to allow me to lock them in the med drawer or [facility]; however, he has been extensively educated on NOT giving his ANY of her medications. He is aware that pharmacy and Attending MD will be requesting these medications in the morning. He will be keeping them at his side.
[2023-09-28 03:07] LABS: Troponin I 0.02 ng/ml (0.00-0.034)
[2023-09-28 04:00] VITALS: BP 141/65; PULSE 70; PULSE 72; RESP 16; TEMP 36.7; O2SAT 98; BMI 34.6
--- NOTE | 2023-09-28 06:19 | PC.NURSE ---
Patient has become more alert since admission. She is oriented x4 and states she is still tired, but feels okay. Lab currently at bedside for morning labs. Spouse is asleep at bedside.
[2023-09-28 06:45] LABS: Basophils % 0.2 % (0.1-2.0); Eosinophils # 0.5 K/mm3 (0.0-0.4); Eosinophils % 9.1 % (0.1-12.0); Hematocrit 29.6 % (37.0-47.0); Hemoglobin 9.3 g/dL (12.2-16.2); Lymphocytes # 1.3 K/mm3 (0.7-4.5); Lymphocytes % 27.1 % (10-50); Mean Corpuscular HGB Conc 31.4 g/dL (31.8-35.4); Mean Corpuscular Hemoglobin 28.9 pg (27.0-31.2); Mean Corpuscular Volume 92.1 fl (81-99); Mean Platelet Volume 8.8 fl (7.4-10.4); Monocytes # 0.3 K/mm3 (0.1-1.0); Monocytes % 5.2 % (1.7-9.3); Neutrophils # 2.9 K/mm3 (1.8-7.8); Neutrophils % 58.4 % (37.0-80.0); Platelet Count 137 K/mm3 (142-424); Red Blood Count 3.22 M/mm3 (4.20-5.40); Red Cell Distribution Width 17.3 % (11.5-17.5); White Blood Count 4.9 K/mm3 (4.8-10.8)
[2023-09-28 06:53] LABS: Alanine Aminotransferase 17 U/L (12-78); Albumin Level 3.5 g/dl (3.5-5.0); Albumin/Globulin Ratio 1.2 (1.1-1.8); Alkaline Phosphatase 95 U/L (38-126); Aspartate Amino Transferase 28 U/L (14-36); Bilirubin,Total 0.5 mg/dl (0.2-1.3); Blood Urea Nitrogen 27 mg/dl (7-17); Calcium 8.1 mg/dl (8.4-10.2); Carbon Dioxide 32 mmol/L (22.0-30.0); Chloride 105 mmol/L (98-107); Creatinine Clearance Estimated 52 mL/min (50-200); Estimated Glomerular Filt Rate 36 ml/min (>60); GFR (African American) 44 ML/MIN (>60); Glucose 92 mg/dl (74-100); Magnesium 2.6 mg/dl (1.6-2.3); Sodium 140 mmol/L (136-145); Total Protein,Serum 6.5 g/dl (6.3-8.2)
[2023-09-28 08:00] VITALS: BP 118/66; PULSE 70; RESP 16; TEMP 36.4; O2SAT 100
--- NOTE | 2023-09-28 08:46 | HMH.PHAINT1 ---
Pharmacy Intervention Comments: Home med list verified with patient's at bedside who provided a list of medications he gives patient. List was compared with external pharmacy list.
--- NOTE | 2023-09-28 09:51 | HMH.OTEV ---
OT Inpatient Evaluation Rehab OT IP Evaluation Start: 09/28/23 08:06 Freq: ONCE Status: Active Protocol: Document 09/28/23 09:44 TIKIRUY (Rec: 09/28/23 09:51 ALEXIS [id number]) Rehab OT IP Assessment Subjective History This is a 78-year-old female with a history of prior CVA with right side weakness and dysphagia, chair bound, obesity, rheumatoid arthritis, MDD, type 2 diabetes, peripheral neuropathy, CKD, CHF, GLENNY, and COPD on home oxygen who presented to the emergency department for evaluation with concern for somnolence in the setting of possible benzodiazepine overdose. History obtained form bedside and ER documentation. The patient's , who is caregiver and manages her medications at home, stated he was suppose to give her Zofran for nausea and vomiting, however he realized later that it was not the Zofran that she had been taking, and said it was alprazolam. Patient also on home oxycodone, gabapentin and fentanyl pacth. He notes that she seems very sleepy and she is slow to arouse, but he does not note any new focal neurologic deficits or other concerns. She was well prior to taking the medications around 1500. No recent fevers or infectious symptoms noted. Admitted for treatment and management. I can try to sit up. Patient lives at home with . Patient's baseline is minimal. provides patient with all bed mobility, transfers and ADLs. Patient is incontient with bowel and bladder mgt tr. Subjective I can try to sit up. Patient was incontinent of bladder and bowel mgt tr this date. Instructed Patient on proper hand and foot placement to complete bed mobility from supine->sit @ EOB requiring Max A X2. Patient demonstrated fair+ dynamic sitting balance at EOB. Patient sat up at @ EOB~3-5 mins for proper bed changing with standing <30 secs with Max A X2. Assisted Patient from EOB->supine to prepare for TB bathing by SRNA . Objective Patient Orientation Person,Place,Name,Year Right Upper Extremity Gross ROM Mod Limitation 50% Left Upper Extremity Gross ROM WFL Bed Mobility bed mobility - supine/sit Assist Level Maximum x 2 (75% assist) Transfer Training Sit/Stand/Pivot Transfer Assist Level Maximum x 2 (75% assist) Chair Transfer Ability Maximum x 2 (75% assist) Chair Transfer Technique Sit to/from Ambulatory Chair Transfer Assistive Devices None Lower Body Dressing Ability Unable/dependent Upper Body Dressing Ability Unable/dependent Rehab OT IP prob,goals,plan Problems Date of Evaluation: 09/28/23 OT IP Problems Bed Mobility,Transfers,Balance ,Self care,Safety Rehab Potential Rehab Potential Good Equipment Needs Assistive Devices None / NA Plan OT intervention Plan Bed Mobility,Transfers,Balance ,Self care,Safety,Therapeutic Exercise OT Plan Frequency Daily Duration LOS Discharge Goals Bed Mobility Ability Assistance x1 Sit to Stand Chair Transfer Ability Maximum x 1 (75% assist) Chair Transfer Ability Maximum x 1 (75% assist) Chair Transfer Technique Sit to/from Ambulatory Chair Transfer Assistive Devices None Lower Body Dressing Ability Unable/dependent Upper Body Dressing Ability Unable/dependent Discharge Plan OT Discharge Plan Recommend placement at this time. Patient required increase amount of assistancex 2 for all ADLs, fx'l mobility and transfers in order to be taken care of daily. is the primary caregiver at this time. However due to medical decline and needing increase amount of care x2. Placement with rehab would be more beneifical. Patient to be seen here at [facility] for IP OT services. Eval Complexity Eval Charge Codes 08174 - Low Complexity PHYSICIAN CERTIFICATION: I certify the specified therapy services for Enedina Leon are required, authorized, and reviewed every 30 days.
--- NOTE | 2023-09-28 09:58 | HMH.PTEV ---
Physical Therapy Evaluation Rehab PT IP Evaluation Start: 09/28/23 08:06 Freq: ONCE Status: Active Protocol: Document 09/28/23 09:49 HEATHER (Rec: 09/28/23 09:58 HEATHER [id number]) Subjective/History History History Patient is a 78 year old female admitted 09/27/23 secondary to benzodiazepine overdose. Patient's , who controls her home medication, thought that he was giving her Zofran for nausea. He was actually giving her alprazolam. Patient previously dependent with all ADL's/IADL's. Previously non-ambulatory per caregiver report. Subjective Subjective I'm just so cold. Rehab PT IP Eval Objective Appearance Patient Behavior Appropriate,Cooperative, Anxious Patient Orientation Person,Place,Birthday Difficulty following instructions none Speech Pattern Clear,Appropriate Ambulation Patient Able to Ambulate No Balance Ability to Arise Unable Sitting Balance Leans or slides in chair Standing Balance Unsteady Dynamic Sitting Balance Ability Poor Dynamic Standing Balance Ability Poor Transfers Bed Transfer Ability Maximum x 2 (75% assist) Sit to Stand Bed Transfer Ability Maximum x 2 (75% assist) ROM All Extremities PT ROM Status ABN MMT All Extremities PT MMT ABN Abnormal MMT Grade 3-/5 grossly Rehab PT IP prob,goals,plan Problems Date of Evaluation: 09/28/23 PT IP Problems Bed Mobility,Transfers,Gait, Balance,Self care,Safety Rehab Potential Rehab Potential Fair Plan PT Intervention Plan Bed Mobility,Transfers,Gait, Balance,Self care,Safety, Therapeutic Exercise PT Plan Frequency BID Duration LOS Discharge Goals Bed Transfer Ability Moderate x 2 (50% assist) Sit to Stand Chair Transfer Ability Moderate x 2 (50% assist) Discharge Plan PT Discharge Plan PT suggests that patient would benefit from transfer to SNF for further rehad once found medically stable by . Eval Complexity Eval Charge Codes 29288 - High Complexity PHYSICIAN CERTIFICATION: I certify the specified therapy services for Enedina Leon are required, authorized, and reviewed every 30 days.
--- NOTE | 2023-09-28 10:51 | SW/DCPLANNER ---
Addendum entered by Arianne Prescott 09/28/23 15:31: Prema w/ [facility] stated they are unable to accept this patient. Patient information/order has been faxed to [facility]: patient/family are agreeable. Original Note: I spoke w/ patient and her regarding plans once medically stable for discharge. PT/OT evaluated patient and recommended SNF level of care. Patient and her prefer to return home w/ home health services. Patient has used [facility] in the past and prefers to use this agency again at discharge. I will fax information/order to [facility]. Patient will discharge home this afternoon.
[2023-09-28] MEDS: FENTANYL 25 MCG TD (11:31)
[2023-09-28] MEDS: FUROSEMIDE 80 MG 40 MG PO (11:31)
[2023-09-28] MEDS: HYDROXYCHLOROQUINE SULFATE 200 MG PO (11:32)
[2023-09-28] MEDS: *PAT OWN MED* FAMOTIDINE 20MG TABLET 20 MG PO (11:33)
[2023-09-28] MEDS: BISOPROLOL FUMARATE 10 MG 10 EACH PO (11:33)
[2023-09-28] MEDS: *PAT OWN MED* APIXABAN 5MG TABLET 5 MG PO (11:34)
[2023-09-28] MEDS: EMPAGLIFLOZIN 10MG TABLET 10 MG PO (11:42)
[2023-09-28] MEDS: 0.9 % SODIUM CHLORIDE 1000ML 1,000 ML 75 ML IV (11:43)
[2023-09-28 12:00] VITALS: BP 117/67; PULSE 70; RESP 17; TEMP 36.9; O2SAT 100
[2023-09-28 12:40] LABS: POC Glucose,Bedside 132 (70-110)
--- NOTE | 2023-09-28 15:09 | EXP.DC.SUM ---
General Admission date:: 09/27/23 Discharge date: 09/28/23 HPI HPI HPI: This is a 78-year-old female with a history of prior CVA with right side weakness and dysphagia, chair bound, obesity, rheumatoid arthritis, MDD, type 2 diabetes, peripheral neuropathy, CKD, CHF, GLENNY, and COPD on home oxygen who presented to the emergency department for evaluation with concern for somnolence in the setting of possible benzodiazepine overdose. History obtained form bedside and ER documentation. The patient's , who is caregiver and manages her medications at home, stated he was suppose to give her Zofran for nausea and vomiting, however he realized later that it was not the Zofran that she had been taking, and said it was alprazolam. Patient also on home oxycodone, gabapentin and fentanyl pacth. He notes that she seems very sleepy and she is slow to arouse, but he does not note any new focal neurologic deficits or other concerns. She was well prior to taking the medications around 1500. No recent fevers or infectious symptoms noted. Admitted for treatment and management. Hospital Course Hospital Course Hospital Course: 78-year-old female with a history of prior CVA with right side weakness and dysphagia, chair bound, obesity, rheumatoid arthritis, MDD, type 2 diabetes, peripheral neuropathy, CKD, CHF, GLENNY, and COPD on home oxygen who presented to the emergency department for evaluation with concern for somnolence in the setting of possible benzodiazepine overdose. Upon arrival patient is easily aroused to voice, but answers questions appropriately and follows commands. patient underwent CT of head and CXR. Imaging reviewed. there are negative for acute process. labs are unremarkable. Discussion made with ER. Agreed for admission. Patient's mentation improved by morning with holding medications. Back to her baseline mentation and clinical status. Stable to discharge home. Problems addressed as follows: -AMS secondary to accidental Benzo over dose in the setting of polypharmacy: Admitted patient for observation. Received a liter of IV fluids. Monitored on telemetry. Mentation improved to baseline by morning. Stable for discharge home. Extensive discussion with about caution with medications. I expressed multiple times my concerns for patient's polypharmacy and risk of adverse events like this. Patient and state understanding. This appears to be completely accidental event however given her extensive medication list, at high risk for recurrence of this event. Patient was evaluated by therapy, recommend placement but family prefers to go home. Discharged in the care of her . -CKD; Creatinine stable during admission. Continued home regimen for chronic conditions including COPD, GERD, ED, diabetes. - Opiod Use: Has chronic pain. Continue regimen at recommend continuing to evaluate areas for weaning as an outpatient. Stable to discharge home. Spent 40 minutes in discharge counseling, discussionwith family, and direct care with patient. Exam Data for Last 24 hours Vital signs and Labs for Last 24 Hours: Temp Pulse Resp BP Pulse Ox O2 Del Method O2 Flow Rate 98.4 F 70 17 117/67 100 Nasal Cannula 2 09/28/23 12:00 09/28/23 12:00 09/28/23 12:00 09/28/23 12:00 09/28/23 12:00 09/28/23 15:00 09/28/23 15:00 Laboratory Results - last 24 hr 09/27/23 20:38: VBG pH 7.27 L, VBG pCO2 62.2 H, VBG pO2 113.6 H, VBG HCO3 27.9, VBG Total CO2 29.8 H, VBG O2 Saturation 97.8 H, VBG Base Excess 1.0 09/27/23 20:43: WBC 6.7, RBC 2.98 L, Hgb 8.6 L, Hct 27.8 L, MCV 93.1, MCH 28.9, MCHC 31.0 L, RDW 17.8 H, Plt Count 156, MPV 9.4, Neut % (Auto) 55.4, Lymph % (Auto) 30.6, Lucas % (Auto) 5.1, Eos % (Auto) 8.7, Baso % (Auto) 0.2, Neut # (Auto) 3.7, Lymph # (Auto) 2.0, Lucas # (Auto) 0.3, Eos # (Auto) 0.6 H, Baso # (Auto) 0.0, Sodium 140, Potassium 4.5, Chloride 104, Carbon Dioxide 32 H, Anion Gap 8.5, BUN 30 H, Creatinine 1.60 H, Estimated Creat Clear 42, Estimated GFR 31 L, Est GFR ( Amer) 38 L, Glucose 100, Calcium 8.0 L, Total Bilirubin 0.5, AST 26, ALT 16, Alkaline Phosphatase 86, Troponin I 0.02, Total Protein 6.3, Albumin 3.5, Globulin 2.8, Albumin/Globulin Ratio 1.3, Salicylates < 1.0 L, Acetaminophen < 10 L 09/27/23 21:33: Urine Color Yellow, Urine Appearance Slightly cloudy, Urine pH 6.0, Ur Specific Roberts 1.020, Urine Protein Negative, Urine Glucose (UA) 3+, Urine Ketones Negative, Urine Blood Trace-l, Urine Nitrate Negative, Urine Bilirubin Negative, Urine Urobilinogen 0.2, Ur Leukocyte Esterase 1+ A, Urine RBC 5-10, Urine WBC 10-20, Ur Squamous Epith Cells 3-5, Urine Bacteria 1+, Urine Opiates Screen Negative, Urine Methadone Screen Negative, Ur Barbituates Screen Negative, Ur Phencyclidine Scrn Negative, Ur Amphetamines Screen Negative, U Benzodiazepines Scrn Positive H, Urine Cocaine Screen Negative, U Marijuana (THC) Screen Negative 09/27/23 23:30: Troponin I 0.02 09/28/23 02:40: Troponin I 0.02 09/28/23 06:22: WBC 4.9 D, RBC 3.22 L, Hgb 9.3 L, Hct 29.6 L, MCV 92.1, MCH 28.9, MCHC 31.4 L, RDW 17.3, Plt Count 137 L, MPV 8.8, Neut % (Auto) 58.4, Lymph % (Auto) 27.1, Lucas % (Auto) 5.2, Eos % (Auto) 9.1, Baso % (Auto) 0.2, Neut # (Auto) 2.9, Lymph # (Auto) 1.3, Lucas # (Auto) 0.3, Eos # (Auto) 0.5 H, Baso # (Auto) 0.0, Sodium 140, Potassium 4.0, Chloride 105, Carbon Dioxide 32 H, Anion Gap 7.0, BUN 27 H, Creatinine 1.40 H, Estimated Creat Clear 52, Estimated GFR 36 L, Est GFR ( Amer) 44 L, Glucose 92, Calcium 8.1 L, Magnesium 2.6 H, Total Bilirubin 0.5, AST 28, ALT 17, Alkaline Phosphatase 95, Total Protein 6.5, Albumin 3.5, Globulin 3.0, Albumin/Globulin Ratio 1.2 09/28/23 12:02: POC Glucose 132 H I & O for Last 24 hours: Intake & Output 09/25/23 09/26/23 09/27/23 09/28/23 23:59 23:59 23:59 23:59 Intake Total 585 / 585 Output Total 400 / 400 Balance 185 / 185 Weight 97.704 kg 97.704 kg Constitutional Constitutional: no acute distress, obese and chronically ill appearing *Routine HEENT Exam Head: Present normocephalic Eye: Present EOMI and PERRL ENT: Present mucous membranes moist Comments: NC in place *Routine Neck Exam Neck: Present supple; Absent lymphadenopathy *Routine Respiratory Exam Respiratory: Present diminished air movement and normal respiratory effort; Absent rhonchi, wheezes or crackles *Routine Cardiovascular Exam Cardiovascular: Present RRR *Routine Abdominal Exam Abdominal: Present soft and normoactive bowel sounds; Absent tenderness *Routine Rectal Exam Patient deferred: visual exam *Routine Exam Patient deferred: external exam *Routine Extremities Exam Extremities: Present edema (trace BLE); Absent cyanosis or clubbing *Routine Skin Exam Skin: Present warm; Absent rash *Routine Neurological Exam Neurological: Present alert, oriented X3 and normal speech; Absent altered mental status Routine Psychiatric Exam Psychiatric: Present normal thought process and anxious Results Data Completed and Pending Labs on day of discharge: Labs from last 24 hours 09/28/23 09/28/23 09/28/23 12:02 06:22 02:40 WBC 4.9 D RBC 3.22 L Hgb 9.3 L Hct 29.6 L MCV 92.1 MCH 28.9 MCHC 31.4 L RDW 17.3 Plt Count 137 L MPV 8.8 Neut % (Auto) 58.4 Lymph % (Auto) 27.1 Lucas % (Auto) 5.2 Eos % (Auto) 9.1 Baso % (Auto) 0.2 Neut # (Auto) 2.9 Lymph # (Auto) 1.3 Lucas # (Auto) 0.3 Eos # (Auto) 0.5 H Baso # (Auto) 0.0 VBG pH VBG pCO2 VBG pO2 VBG HCO3 VBG Total CO2 VBG O2 Saturation VBG Base Excess Sodium 140 Potassium 4.0 Chloride 105 Carbon Dioxide 32 H Anion Gap 7.0 BUN 27 H Creatinine 1.40 H Estimated Creat Clear 52 Estimated GFR 36 L Est GFR ( Amer) 44 L Glucose 92 POC Glucose 132 H Calcium 8.1 L Magnesium 2.6 H Total Bilirubin 0.5 AST 28 ALT 17 Alkaline Phosphatase 95 Troponin I 0.02 Total Protein 6.5 Albumin 3.5 Globulin 3.0 Albumin/Globulin Ratio 1.2 Urine Color Urine Appearance Urine pH Ur Specific Roberts Urine Protein Urine Glucose (UA) Urine Ketones Urine Blood Urine Nitrate Urine Bilirubin Urine Urobilinogen Ur Leukocyte Esterase Urine RBC Urine WBC Ur Squamous Epith Cells Urine Bacteria Salicylates Urine Opiates Screen Urine Methadone Screen Acetaminophen Ur Barbituates Screen Ur Phencyclidine Scrn Ur Amphetamines Screen U Benzodiazepines Scrn Urine Cocaine Screen U Marijuana (THC) Screen 09/27/23 09/27/23 09/27/23 23:30 21:33 20:43 WBC 6.7 RBC 2.98 L Hgb 8.6 L Hct 27.8 L MCV 93.1 MCH 28.9 MCHC 31.0 L RDW 17.8 H Plt Count 156 MPV 9.4 Neut % (Auto) 55.4 Lymph % (Auto) 30.6 Lucas % (Auto) 5.1 Eos % (Auto) 8.7 Baso % (Auto) 0.2 Neut # (Auto) 3.7 Lymph # (Auto) 2.0 Lucas # (Auto) 0.3 Eos # (Auto) 0.6 H Baso # (Auto) 0.0 VBG pH VBG pCO2 VBG pO2 VBG HCO3 VBG Total CO2 VBG O2 Saturation VBG Base Excess Sodium 140 Potassium 4.5 Chloride 104 Carbon Dioxide 32 H Anion Gap 8.5 BUN 30 H Creatinine 1.60 H Estimated Creat Clear 42 Estimated GFR 31 L Est GFR ( Amer) 38 L Glucose 100 POC Glucose Calcium 8.0 L Magnesium Total Bilirubin 0.5 AST 26 ALT 16 Alkaline Phosphatase 86 Troponin I 0.02 0.02 Total Protein 6.3 Albumin 3.5 Globulin 2.8 Albumin/Globulin Ratio 1.3 Urine Color Yellow Urine Appearance Slightly cloudy Urine pH 6.0 Ur Specific Roberts 1.020 Urine Protein Negative Urine Glucose (UA) 3+ Urine Ketones Negative Urine Blood Trace-l Urine Nitrate Negative Urine Bilirubin Negative Urine Urobilinogen 0.2 Ur Leukocyte Esterase 1+ A Urine RBC 5-10 Urine WBC 10-20 Ur Squamous Epith Cells 3-5 Urine Bacteria 1+ Salicylates < 1.0 L Urine Opiates Screen Negative Urine Methadone Screen Negative Acetaminophen < 10 L Ur Barbituates Screen Negative Ur Phencyclidine Scrn Negative Ur Amphetamines Screen Negative U Benzodiazepines Scrn Positive H Urine Cocaine Screen Negative U Marijuana (THC) Screen Negative 09/27/23 20:38 WBC RBC Hgb Hct MCV MCH MCHC RDW Plt Count MPV Neut % (Auto) Lymph % (Auto) Lucas % (Auto) Eos % (Auto) Baso % (Auto) Neut # (Auto) Lymph # (Auto) Lucas # (Auto) Eos # (Auto) Baso # (Auto) VBG pH 7.27 L VBG pCO2 62.2 H VBG pO2 113.6 H VBG HCO3 27.9 VBG Total CO2 29.8 H VBG O2 Saturation 97.8 H VBG Base Excess 1.0 Sodium Potassium Chloride Carbon Dioxide Anion Gap BUN Creatinine Estimated Creat Clear Estimated GFR Est GFR ( Amer) Glucose POC Glucose Calcium Magnesium Total Bilirubin AST ALT Alkaline Phosphatase Troponin I Total Protein Albumin Globulin Albumin/Globulin Ratio Urine Color Urine Appearance Urine pH Ur Specific Roberts Urine Protein Urine Glucose (UA) Urine Ketones Urine Blood Urine Nitrate Urine Bilirubin Urine Urobilinogen Ur Leukocyte Esterase Urine RBC Urine WBC Ur Squamous Epith Cells Urine Bacteria Salicylates Urine Opiates Screen Urine Methadone Screen Acetaminophen Ur Barbituates Screen Ur Phencyclidine Scrn Ur Amphetamines Screen U Benzodiazepines Scrn Urine Cocaine Screen U Marijuana (THC) Screen DS: Diagnosis Discharge Diagnosis (1) AMS (altered mental status): Status: Acute Code(s): R41.82 - Altered mental status, unspecified Qualifiers: Altered mental status type: somnolence Qualified Code(s): R40.0 - Somnolence (2) Benzodiazepine overdose: Status: Acute Code(s): T42.4X1A - Poisoning by benzodiazepines, accidental (unintentional), initial encounter Qualifiers: Encounter type: initial encounter Injury intent: accidental or unintentional Qualified Code(s): T42.4X1A - Poisoning by benzodiazepines, accidental (unintentional), initial encounter (3) CKD (chronic kidney disease) stage 3, GFR 30-59 ml/min: Status: Acute Code(s): N18.30 - Chronic kidney disease, stage 3 unspecified Qualifiers: Chronic kidney disease stage 3 subtype: stage 3a (GFR 45-59) Qualified Code(s): N18.31 - Chronic kidney disease, stage 3a (4) Diabetes: Status: Chronic Code(s): E11.9 - Type 2 diabetes mellitus without complications Qualifiers: Diabetes mellitus complication status: with other specified complication 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 mellitus long lines operator insulin use: with [facility] use Diabetes mellitus type: type 2 Qualified Code(s): E11.69 - Type 2 diabetes mellitus with other specified complication; Z79.4 - intermediate (current) use of insulin (5) Hypertension: Status: Acute Code(s): I10 - Essential (primary) hypertension Qualifiers: Hypertension type: primary hypertension Qualified Code(s): I10 - Essential (primary) hypertension (6) Polypharmacy: Status: Chronic Code(s): Z79.899 - Other long lines operator (current) drug therapy (7) GERD (gastroesophageal reflux disease): Status: Chronic Code(s): K21.9 - Gastro-esophageal reflux disease without esophagitis Qualifiers: Esophagitis presence: without esophagitis Qualified Code(s): K21.9 - Gastro-esophageal reflux disease without esophagitis (8) Dysphagia: Status: Acute Code(s): R13.10 - Dysphagia, unspecified Qualifiers: Dysphagia type: unspecified Qualified Code(s): R13.10 - Dysphagia, unspecified (9) Chronic narcotic use: Status: Chronic Code(s): F11.90 - Opioid use, unspecified, uncomplicated (10) Severe sleep apnea: Status: Chronic Code(s): G47.30 - Sleep apnea, unspecified Meds Home Medications and Allergies Home Medications Medication Instructions Recorded Confirmed Type apixaban 5 mg tablet (Eliquis) 5 mg PO BID 09/27/23 09/27/23 History atorvastatin 40 mg tablet 40 mg PO HS 09/27/23 09/27/23 History bisoprolol fumarate 10 mg tablet 10 mg PO DAILY 09/27/23 09/27/23 History empagliflozin 10 mg tablet 10 mg PO DAILY 09/27/23 09/28/23 History (Jardiance) escitalopram oxalate 5 mg tablet 10 mg PO DAILY 09/27/23 09/28/23 History famotidine 20 mg tablet 20 mg PO BID 09/27/23 09/27/23 History fentanyl 25 mcg/hr transdermal 25 mcg transdermal Q72H 09/27/23 09/27/23 History patch furosemide 40 mg tablet 40 mg PO DAILYP PRN Edema 09/27/23 09/28/23 History gabapentin 600 mg tablet 600 mg PO QID 09/27/23 09/27/23 History hydroxychloroquine 200 mg tablet 200 mg PO BID 09/27/23 09/28/23 History insulin aspart U-100 100 unit/mL 10 unit SQ DAILYP PRN Hyperglycemia 09/27/23 09/28/23 History (3 mL) subcutaneous pen (Novolog FlexPen U-100 Insulin aspart) insulin glargine 100 unit/mL 35 unit SQ HS 09/27/23 09/28/23 History subcutaneous solution (Lantus U-100 Insulin) ondansetron HCl 4 mg tablet 4 mg PO Q8HP PRN Nausea 09/27/23 09/27/23 History oxycodone 5 mg tablet 10 mg PO QIDP PRN Pain (Scale 09/27/23 09/27/23 History Score 7-10) pantoprazole 40 mg tablet,delayed 40 mg PO BID 09/27/23 09/27/23 History release acetaminophen 500 mg tablet 500 mg PO BIDP PRN Pain 09/28/23 09/28/23 History melatonin 3 mg tablet 3 mg PO DAILYP PRN Sleep 09/28/23 09/28/23 History polyethylene glycol 3350 17 gram 17 g PO BID Constipation 09/28/23 09/28/23 History oral powder packet New Prescriptions to Start Prescriptions: Allergies Allergy/AdvReac Type Severity Reaction Status Date / Time amitriptyline [From Elavil] Allergy Severe [id number]/THROAT; Verified 08/11/23 14:29 SEIZURES chlorpromazine Allergy Severe SEIZURES Verified 08/11/23 14:29 [From Thorazine] dichloralphenazone Allergy Severe S-SWELLS-OR Verified 08/11/23 14:29 [From Midrin] AL/THROAT isometheptene [From Midrin] Allergy Severe S-SWELLS-OR Verified 08/11/23 14:29 AL/THROAT prochlorperazine Allergy Severe SEIZURES Verified 08/11/23 14:29 [From Compazine] adhesive tape Allergy Intermediate I-RASH Verified 08/11/23 14:29 aspirin Allergy Intermediate COLD Verified 08/11/23 14:29 SWEATS , N/V cyclobenzaprine Allergy Unknown Unknown Verified 08/11/23 14:29 [From FLEXERIL] allergy reaction duloxetine [DULOXETINE] Allergy Unknown Unknown Verified 08/11/23 14:29 allergy reaction Iodinated Contrast Media Allergy Unknown Unknown Verified 08/11/23 14:29 [IODINATED CONTRAST MEDIA - allergy ORAL AND] reaction Sulfa (Sulfonamide Allergy Unknown CONTRAINDICATED Verified 08/11/23 14:29 Antibiotics) WITH ASTHMA trimethoprim [TRIMETHOPRIM] Allergy Unknown Unknown Verified 08/11/23 14:29 allergy reaction leflunomide Allergy rash, Verified 08/11/23 14:29 redness Macrolide Antibiotics Allergy rash, Verified 08/11/23 14:29 redness Beta-Blockers AdvReac Severe MAKES Verified 08/11/23 14:29 (Beta-Adrenergic Bloc ASTHMA WORSE caffeine [From Cafergot] AdvReac Mild NA-NAUSEA Verified 08/11/23 14:29 ergotamine [From Cafergot] AdvReac Mild NA-NAUSEA Verified 08/11/23 14:29 pregabalin [From Lyrica] AdvReac Mild TOO Verified 08/11/23 14:29 SEDATED NSAIDS (Non-Steroidal AdvReac Unknown Verified 08/11/23 14:29 Anti-Inflamma allergy reaction Discharge Plan Disposition Patient Disposition: Home Health Service Condition: Fair Discharge Order Discharge Orders: Discharge Order (Routine); Ordered 09/28/23 Ordered By: Shun Oconnell Follow up Plan Follow up with: Geovany Medel MD [Primary Care Provider] - 10/05/23 2:20 pm Prescriptions/Medication Reconciliation: Continued furosemide 40 mg tablet 40 mg PO DAILYP PRN (Reason: Edema) atorvastatin 40 mg tablet 40 mg PO HS gabapentin 600 mg tablet 600 mg PO QID insulin glargine [Lantus U-100 Insulin] 100 unit/mL solution 35 unit SQ HS ondansetron HCl 4 mg tablet 4 mg PO Q8HP PRN (Reason: Nausea) bisoprolol fumarate 10 mg tablet 10 mg PO DAILY famotidine 20 mg tablet 20 mg PO BID pantoprazole 40 mg tablet,delayed release (DR/EC) 40 mg PO BID hydroxychloroquine 200 mg tablet 200 mg PO BID fentanyl 25 mcg/hr patch 72 hour 25 mcg transdermal Q72H oxycodone 5 mg tablet 10 mg PO QIDP PRN (Reason: Pain (Scale Score 7-10)) Patient Comments: TAKE 2 TABLETS BY MOUTH EVERY 4 HOURS NEEDED FOR PAIN insulin aspart U-100 [Novolog FlexPen U-100 Insulin] 100 unit/mL (3 mL) insulin pen 10 unit SQ DAILYP PRN (Reason: Hyperglycemia) escitalopram oxalate 5 mg tablet 10 mg PO DAILY Eliquis 5 mg tablet 5 mg PO BID Jardiance 10 mg tablet 10 mg PO DAILY polyethylene glycol 3350 17 gram Powder In Packet 17 g PO BID melatonin 3 mg Tablet 3 mg PO DAILYP PRN (Reason: Sleep) acetaminophen 500 mg Tablet 500 mg PO BIDP PRN (Reason: Pain) Problem Reconciliation Problems Reviewed?: Yes Patient Discharge Instructions ACTIVITY: Continue current activity DIET: continue same diet Patient Instructions: DI for Drug Overdose in Adults Providers Primary Care Provider: Geovany Medel Admit Provider: Shun Oconnell Attending Provider: Shun Oconnell
[2023-09-28 17:06] LABS: POC Glucose,Bedside 90 (70-110)
--- NOTE | 2023-09-30 12:46 | CARE MANAGER ---
Contacted patient's related to hospital discharge. He states they are doing well and denies questions or concerns. He is aware caretenders will come next week. GONZALEZ Sahu
== END 2023-09-28 16:27 | disposition home health service (06) ==
LOC: ER 22:22 → 2ND 22:32
PROVIDERS: Nurse Practitioner Family; Admitting Provider Internal Medicine Adolescent Medicine; Emergency Provider Emergency Medicine; PCP Internal Medicine; Visit Provider Internal Medicine Adolescent Medicine
DX: T42.4X1A Poisoning by benzodiazepines, accidental (unintentional), initial encounter (principal); R41.82 Altered mental status, unspecified; N18.31 Chronic kidney disease, stage 3a; E11.69 Type 2 diabetes mellitus with other specified complication; Z79.4 Long term (current) use of insulin; I12.9 Hypertensive chronic kidney disease with stage 1 through stage 4 chronic kidney disease, or unspecified chronic kidney disease; Z79.899 Other long term (current) drug therapy; K21.9 Gastro-esophageal reflux disease without esophagitis; F11.90 Opioid use, unspecified, uncomplicated; G47.30 Sleep apnea, unspecified; Z99.81 Dependence on supplemental oxygen; J44.9 Chronic obstructive pulmonary disease, unspecified; I69.391 Dysphagia following cerebral infarction; I69.351 Hemiplegia and hemiparesis following cerebral infarction affecting right dominant side; R13.19 Other dysphagia
CPT/HCPCS: 36415; 70450; 71045; 72125; 80053; 80307; 80329; 81001; 82803; 82962; 83735; 84484; 85025; 87086; 93005; 97163; 97165; 99285; G0378

== ENCOUNTER 2023-10-13 09:01 | Outpatient (CLI) | payer MEDICARE, SELFPAY ==
--- NOTE | 2023-10-13 09:06 | US_ITS ---
FINAL REPORT CLINICAL HISTORY: ABD PAIN,KNOT RT OF UMBILICUS COMPARISON: 09/29/2022 FINDINGS: Sonographic images of the abdomen were obtained. The liver has an unremarkable appearance with normal echogenicity. The gallbladder has been surgically removed. The common bile duct was not measured on this examination but no evidence of biliary ductal dilatation is seen. The pancreas is obscured by overlying bowel gas. The spleen size is normal. The right kidney measures 9.9 in length. The left kidney measures 10.6 in length. There is normal renal echogenicity. There is no evidence of hydronephrosis. The aorta has an unremarkable appearance. Limited images of the inferior vena cava are unremarkable. Images were also obtained of the right anterior abdomen at the level of the umbilicus. There is a 3.6 x 3.8 x 1.5 cm echogenic mass, ovoid, in the right anterior abdominal wall. This is nonspecific, but may represent a lipoma or other neoplasm. IMPRESSION: 3.6 x 3.8 x 1.5 cm ovoid mass in the right anterior abdominal wall, which may represent a lipoma or potentially other neoplasm. Reviewed, Interpreted and Dictated by Samuel Schneider III, MD Transcribed by Jade Cabrera Authenticated and [facility]
== END 2023-10-13 23:59 ==
LOC: RAD 09:01
PROVIDERS: PCP Internal Medicine; Visit Provider Internal Medicine
DX: R10.9 Unspecified abdominal pain (principal); R19.05 Periumbilic swelling, mass or lump
CPT/HCPCS: 76700

== ENCOUNTER 2023-11-15 14:50 | Outpatient (CLI) | payer MEDICARE, SELFPAY ==
[2023-11-15 15:28] LABS: Basophils % 0.1 % (0.1-2.0); Eosinophils # 0.4 K/mm3 (0.0-0.4); Eosinophils % 5.4 % (0.1-12.0); Hematocrit 29.4 % (37.0-47.0); Hemoglobin 9.1 g/dL (12.2-16.2); Lymphocytes # 1.4 K/mm3 (0.7-4.5); Lymphocytes % 18.9 % (10-50); Mean Corpuscular HGB Conc 30.8 g/dL (31.8-35.4); Mean Corpuscular Hemoglobin 29.2 pg (27.0-31.2); Mean Corpuscular Volume 94.8 fl (81-99); Mean Platelet Volume 9.2 fl (7.4-10.4); Monocytes # 0.3 K/mm3 (0.1-1.0); Monocytes % 4.7 % (1.7-9.3); Neutrophils # 5.1 K/mm3 (1.8-7.8); Neutrophils % 70.9 % (37.0-80.0); Platelet Count 185 K/mm3 (142-424); Red Cell Distribution Width 17.6 % (11.5-17.5); White Blood Count 7.3 K/mm3 (4.8-10.8)
[2023-11-15 15:38] LABS: Hemoglobin A1C 6.2 % (4.0-6.0)
[2023-11-15 15:48] LABS: Chloride 105 mmol/L (98-107)
[2023-11-15 15:49] LABS: Potassium 4.5 mmoL/L (3.5-5.1); Sodium 140 mmol/L (136-145)
[2023-11-15 15:51] LABS: Alanine Aminotransferase 17 U/L (12-78); Aspartate Amino Transferase 27 U/L (14-36); Blood Urea Nitrogen 27 mg/dl (7-17); Estimated Glomerular Filt Rate 31 ml/min (>60); GFR (African American) 38 ML/MIN (>60)
[2023-11-15 15:52] LABS: Albumin Level 3.6 g/dl (3.5-5.0); Albumin/Globulin Ratio 1.4 (1.1-1.8); Alkaline Phosphatase 98 U/L (38-126); Anion Gap 7.5 mEq/L (5-15); Bilirubin,Total 0.5 mg/dl (0.2-1.3); Calcium 8.4 mg/dl (8.4-10.2); Carbon Dioxide 32 mmol/L (22.0-30.0); Chol/HDL Ratio 2.6 (1-3.5); Cholesterol 95 mg/dl (140-200); Globulin 2.5 g/dL (1.3-3.2); Glucose 139 mg/dl (74-100); HDL Cholesterol 36 mg/dl (40-60); Total Protein,Serum 6.1 g/dl (6.3-8.2); Triglycerides 61 mg/dl (30-150); VLDL Cholesterol 12 mg/dL (0-40)
[2023-11-15 16:09] LABS: Direct LDL Cholesterol 49.26 mg/dL (100-129)
[2023-11-15 19:09] LABS: Thyroid Stimulating Hormone 5.89 uIU/mL (0.465-4.68)
== END 2023-11-15 23:59 ==
LOC: LAB 14:51
PROVIDERS: PCP Internal Medicine; Visit Provider Internal Medicine
DX: E11.42 Type 2 diabetes mellitus with diabetic polyneuropathy (principal); E11.59 Type 2 diabetes mellitus with other circulatory complications; I10 Essential (primary) hypertension; E78.5 Hyperlipidemia, unspecified; N19 Unspecified kidney failure; Z79.4 Long term (current) use of insulin
CPT/HCPCS: 36415; 80053; 80061; 83036; 84443; 85025

== ENCOUNTER 2023-12-19 11:03 | Outpatient (CLI) | payer MEDICARE, SELFPAY ==
--- NOTE | 2023-12-19 11:06 | CT_ITS ---
FINAL REPORT CLINICAL HISTORY: RLQ PAIN COMPARISON: 12/04/2021 FINDINGS: Axial CT images of the abdomen and pelvis were obtained without intravenous contrast. Coronal and sagittal reformatted images were also obtained.This study was performed with techniques to keep radiation doses as low as reasonably achievable (ALARA). Individualized dose reduction techniques using automated exposure control or adjustment of mA and/or kV according to the patient's size were employed. Abdomen: Mild atelectasis is present at the lung bases. Small pleural effusions are noted as well. There are multiple small less than 3 mm bilateral nonobstructing renal stones present. The gallbladder has been surgically removed. Mild anasarca is present. The liver, spleen and pancreas have an unremarkable, unenhanced appearance. No mass or adenopathy is seen. No inflammatory process is identified. Vascular calcifications are present. Pelvis: Images of the pelvis reveal no evidence of ureteral dilation or ureteral stone. There is mild bladder wall thickening, diffuse, favor inflammatory. No mass or abnormal fluid collection is identified. Postoperative changes are present in the lumbar spine, sigmoid colon, and the pelvis, as the patient is status post hysterectomy. IMPRESSION: Multiple less than 3 mm in size bilateral nonobstructing renal stones. Mild atelectasis in the bases with small pleural effusions. Mild anasarca is present as well. Mild diffuse bladder wall thickening, favor inflammatory. Reviewed, Interpreted and Dictated by Samuel Schneider III, MD Transcribed by Jade Cabrera Authenticated and [facility]
== END 2023-12-19 23:59 ==
LOC: RAD 11:05
PROVIDERS: PCP Internal Medicine; Visit Provider Internal Medicine
DX: R10.31 Right lower quadrant pain (principal)
CPT/HCPCS: 74176

== ENCOUNTER 2024-01-13 23:33 | Emergency (ER) | payer MEDICARE, SELFPAY ==
--- NOTE | 2024-01-13 23:37 | ED_ITS ---
Discharge Plan Disposition Patient Disposition: Home, Self-Care Prescriptions Prescriptions: No Action furosemide 40 mg tablet 40 mg PO DAILYP PRN (Reason: Edema) atorvastatin 40 mg tablet 40 mg PO HS gabapentin 600 mg tablet 600 mg PO QID insulin glargine [Lantus U-100 Insulin] 100 unit/mL solution 35 unit SQ HS ondansetron HCl 4 mg tablet 4 mg PO Q8HP PRN (Reason: Nausea) bisoprolol fumarate 10 mg tablet 10 mg PO DAILY famotidine 20 mg tablet 20 mg PO BID pantoprazole 40 mg tablet,delayed release (DR/EC) 40 mg PO BID hydroxychloroquine 200 mg tablet 200 mg PO BID fentanyl 25 mcg/hr patch 72 hour 25 mcg transdermal Q72H oxycodone 5 mg tablet 10 mg PO QIDP PRN (Reason: Pain (Scale Score 7-10)) Patient Comments: TAKE 2 TABLETS BY MOUTH EVERY 4 HOURS NEEDED FOR PAIN insulin aspart U-100 [Novolog FlexPen U-100 Insulin] 100 unit/mL (3 mL) insulin pen 10 unit SQ DAILYP PRN (Reason: Hyperglycemia) escitalopram oxalate 5 mg tablet 10 mg PO DAILY Eliquis 5 mg tablet 5 mg PO BID Jardiance 10 mg tablet 10 mg PO DAILY polyethylene glycol 3350 17 gram Powder In Packet 17 g PO BID melatonin 3 mg Tablet 3 mg PO DAILYP PRN (Reason: Sleep) acetaminophen 500 mg Tablet 500 mg PO BIDP PRN (Reason: Pain) Referrals Follow up/Referrals: Provider,Referral, MD [Primary Care Provider] - See instructions Activity Restrictions/Add. Instructions Additional Instructions/Restrictions: Please follow-up with your primary care provider for further assessment and recheck of your labs. Please return to the emergency department if you develop any new or worsening symptoms or become concerned for your health. Clinical Impressions Clinical Impression: Anemia, CKD (chronic kidney disease) Chest pain Qualifiers: Chest pain type: unspecified Qualified Code(s): R07.9 - Chest pain, unspecified Instructions Patient Instructions: Renal (Kidney) Disease Diet -- For People Not on Dialysis, Furosemide Discharge ED Provider: Flavio Delgadillo General Adult HPI General Chief complaint: Chest Pain Stated complaint: CP Time Seen by Provider: 01/13/24 23:37 History of Present Illness HPI narrative: 78-year-old female with history of depression, heart failure, COPD on chronic oxygen, CKD, insulin-dependent diabetes, arthritis, chronic debility presents with intermittent chest pain. Patient and family report that the patient is essentially bedbound. She only gets up to go to the bedside commode. Intermittently, approximately once or twice a week, patient will have brief period of chest pain and shortness of breath lasting less than 10 minutes associated with getting up out of bed. Pain is worse with movement. Centrally located. Patient had an episode tonight a couple hours prior to arrival, prompting presentation. She reports that she is chest pain-free. She denies any history of stents or coronary artery disease. Related Data Home Medications Medication Instructions Recorded Confirmed apixaban 5 mg tablet (Eliquis) 5 mg PO BID 09/27/23 09/27/23 atorvastatin 40 mg tablet 40 mg PO HS 09/27/23 09/27/23 bisoprolol fumarate 10 mg tablet 10 mg PO DAILY 09/27/23 09/27/23 empagliflozin 10 mg tablet 10 mg PO DAILY 09/27/23 09/28/23 (Jardiance) escitalopram oxalate 5 mg tablet 10 mg PO DAILY 09/27/23 09/28/23 famotidine 20 mg tablet 20 mg PO BID 09/27/23 09/27/23 fentanyl 25 mcg/hr transdermal 25 mcg transdermal Q72H 09/27/23 09/27/23 patch furosemide 40 mg tablet 40 mg PO DAILYP PRN Edema 09/27/23 09/28/23 gabapentin 600 mg tablet 600 mg PO QID 09/27/23 09/27/23 hydroxychloroquine 200 mg tablet 200 mg PO BID 09/27/23 09/28/23 insulin aspart U-100 100 unit/mL 10 unit SQ DAILYP PRN Hyperglycemia 09/27/23 09/28/23 (3 mL) subcutaneous pen (Novolog FlexPen U-100 Insulin aspart) insulin glargine 100 unit/mL 35 unit SQ HS 09/27/23 09/28/23 subcutaneous solution (Lantus U-100 Insulin) ondansetron HCl 4 mg tablet 4 mg PO Q8HP PRN Nausea 09/27/23 09/27/23 oxycodone 5 mg tablet 10 mg PO QIDP PRN Pain (Scale 09/27/23 09/27/23 Score 7-10) pantoprazole 40 mg tablet,delayed 40 mg PO BID 09/27/23 09/27/23 release acetaminophen 500 mg tablet 500 mg PO BIDP PRN Pain 09/28/23 09/28/23 melatonin 3 mg tablet 3 mg PO DAILYP PRN Sleep 09/28/23 09/28/23 polyethylene glycol 3350 17 gram 17 g PO BID Constipation 09/28/23 09/28/23 oral powder packet Allergies Allergy/AdvReac Type Severity Reaction Status Date / Time amitriptyline [From Elavil] Allergy Severe [id number]-[id number]/THROAT; Verified 08/11/23 14:29 SEIZURES chlorpromazine Allergy Severe SEIZURES Verified 08/11/23 14:29 [From Thorazine] dichloralphenazone Allergy Severe S-SWELLS-OR Verified 08/11/23 14:29 [From Midrin] AL/THROAT isometheptene [From Midrin] Allergy Severe S-SWELLS-OR Verified 08/11/23 14:29 AL/THROAT prochlorperazine Allergy Severe SEIZURES Verified 08/11/23 14:29 [From Compazine] adhesive tape Allergy Intermediate I-RASH Verified 08/11/23 14:29 aspirin Allergy Intermediate COLD Verified 08/11/23 14:29 SWEATS , N/V cyclobenzaprine Allergy Unknown Unknown Verified 08/11/23 14:29 [From FLEXERIL] allergy reaction duloxetine [DULOXETINE] Allergy Unknown Unknown Verified 08/11/23 14:29 allergy reaction Iodinated Contrast Media Allergy Unknown Unknown Verified 08/11/23 14:29 [IODINATED CONTRAST MEDIA - allergy ORAL AND] reaction Sulfa (Sulfonamide Allergy Unknown CONTRAINDICATED Verified 08/11/23 14:29 Antibiotics) WITH ASTHMA trimethoprim [TRIMETHOPRIM] Allergy Unknown Unknown Verified 08/11/23 14:29 allergy reaction leflunomide Allergy rash, Verified 08/11/23 14:29 redness Macrolide Antibiotics Allergy rash, Verified 08/11/23 14:29 redness Beta-Blockers AdvReac Severe MAKES Verified 08/11/23 14:29 (Beta-Adrenergic Bloc ASTHMA WORSE caffeine [From Cafergot] AdvReac Mild NA-NAUSEA Verified 08/11/23 14:29 ergotamine [From Cafergot] AdvReac Mild NA-NAUSEA Verified 08/11/23 14:29 pregabalin [From Lyrica] AdvReac Mild TOO Verified 08/11/23 14:29 SEDATED NSAIDS (Non-Steroidal AdvReac Unknown Verified 08/11/23 14:29 Anti-Inflamma allergy reaction [facility] Disclaimer: The information contained in this section may have been updated after the patient was seen, as this information can be updated by other users. Medical History Chronic narcotic use Chronic pain disorder CKD (chronic kidney disease) stage 3, GFR 30-59 ml/min CVA (cerebral vascular accident) Degenerative joint disease (DJD) of lumbar spine Diabetes Diabetic neuropathy Dysphagia Frequent headaches GERD (gastroesophageal reflux disease) Hypertension Lumbosacral radiculopathy due to degenerative joint disease of spine Obese Pacemaker Polypharmacy Severe sleep apnea Surgical History H/O: hysterectomy History of carpal tunnel surgery History of colon resection History of spinal surgery Family History Other Diabetes Social History Smoking Status: Never smoker second hand exposure: No alcohol intake: never substance use type: denies use current occupational status: disabled Travel in the last 8 weeks: None household members: spouse housing: other number of children: 3 current occupational exposures/hazards: No caffeine: Yes ROS Obtained: Yes All systems reviewed & no additional complaints except as documented Physical Exam General General appearance: alert and in no apparent distress Head Head exam: atraumatic and normocephalic Eye Eye exam: Present normal appearance, PERRL and EOMI ENT ENT exam: Present normal oropharynx and normal external ear exam Neck Neck exam: Present normal inspection and full ROM Chest Chest inspection: Present normal inspection and symmetric chest wall rise; Absent tenderness Respiratory Respiratory exam: Present normal lung sounds bilaterally; Absent respiratory distress Cardiovascular Cardiovascular exam: Present regular rate and normal rhythm Abdominal Exam Abdominal exam: Present soft; Absent distention, tenderness or guarding Extremities Exam Extremities exam: Present normal inspection and edema (Mild bilateral lower extremity); Absent joint swelling Back Exam Back exam: Present normal inspection; Absent tenderness Neurological Exam Neurological exam: Present alert and oriented X3; Absent motor sensory deficit Psychiatric Psychiatric exam: Present normal affect and normal mood Skin Skin exam: Present warm, dry and normal color Lymphatic Lymphatic Findings: no adenopathy Medical Decision Making Medical Records Medical records reviewed: Yes I reviewed the patient's medical records. Abraham Inquiry Pt receiving controlled substance: No Abraham was queried for this patient: No Vital Signs: 01/13/24 23:38 01/14/24 00:23 01/14/24 00:30 Temperature 98.3 F Temperature Source Oral Pulse Rate 71 75 Pulse Rate [Left] 76 Respiratory Rate 16 18 12 Blood Pressure 138/61 120/59 L Blood Pressure [Right Arm] 118/59 L Blood Pressure Mean 86 82 Blood Pressure Mean [Right Arm] 78 Blood Pressure Position [Right Arm] Sitting 02 Sat by Pulse Oximetry 96 100 100 Oxygen Delivery Method Nasal Cannula Oxygen Flow Rate (LPM) 3 Lab Data Lab results reviewed: Yes I reviewed the patient's lab results. Lab Results 01/14/24 01:22: WBC 5.5, RBC 2.77 L, Hgb 7.7 L, Hct 26.9 L, MCV 97.1, MCH 27.8, MCHC 28.6 L, RDW 18.4 H, Plt Count 146, MPV 8.4, Neut % (Auto) 74.8, Lymph % (Auto) 16.0, Powell % (Auto) 5.2, Eos % (Auto) 3.8, Baso % (Auto) 0.2, Neut # (Auto) 4.1, Lymph # (Auto) 0.9, Powell # (Auto) 0.3, Eos # (Auto) 0.2, Baso # (Auto) 0.0, Sodium 141, Potassium 6.0 H, Chloride 105, Carbon Dioxide 34 H, Anion Gap 8.0, BUN 34 H, Creatinine 1.70 H, Estimated Creat Clear 40, Estimated GFR 29 L, Est GFR ( Amer) 35 L, Glucose 167 H, Calcium 8.4, Total Bilirubin 0.5, AST 39 H, ALT 25, Alkaline Phosphatase 104, Troponin I 0.02, T otal Protein 6.0 L, Albumin 3.4 L, Globulin 2.6, Albumin/Globulin Ratio 1.3 01/14/24 01:52: Potassium 5.6 H 01/14/24 01:22 01/14/24 01:52 Orders (Tests/Meds): ORDERS Category Date Time Status CXR --portable [XR chest portable] Stat Exams 01/14/24 00:02 Completed CBC w/Auto Diff [Complete Blood Count Auto Diff] Stat Lab 01/14/24 01:22 Completed CMP [Comprehensive Metabolic Panel] Stat Lab 01/14/24 01:22 Completed Potassium Stat Lab 01/14/24 01:52 Completed Troponin I Q3H Lab 01/14/24 01:22 Completed Troponin I Q3H Lab 01/14/24 03:15 Ordered ECG Data Tracing #1: I reviewed this ECG and interpreted as documented below: Electronically paced ventricular rhythm, rate of 70, significant baseline artifact limits interpretation, Sgarbossa positive ST changes. ECG initial impression date: 01/13/24 ECG initial impression time: 23:33 HEART Score History (anamnesis): Slightly suspicious ECG: Non-specific disturbance Age: >65 years Risk factors: 3 or more risk factors Troponin: </= normal limit HEART Score: 5 Medical Decision Narrative: 78-year-old female with history as documented above presents with intermittent short periods of chest pain worse with movement.. History was obtained interactive discussion with patient, family. On arrival, patient is [afebrile, hemodynamically stable, satting appropriately, alert, oriented x4, GCS 15], moving all extremities spontaneously. Full physical exam performed and significant for minimal lower extremity edema. Differential includes but is not limited to musculoskeletal chest pain, ACS, pneumonia, heart failure, deconditioning. Workup initiated including CBC CMP troponin chest x-ray. Patient did not receive aspirin because she has a reported NSAID intolerance and our concern for ACS is low. On re-evaluation, patient [remains afebrile, HD stable.] There was a significant delay in obtaining laboratory studies due to access issues. The blood was drawn approximately 2 hours after patient arrival. This was over 3 hours after patient had her less than 10-minute episode of chest pain. Laboratory workup independently interpreted by me and significant for no significant leukocytosis, anemia with hemoglobin 7.7, down from 9.1 2 months ago. Creatinine mildly elevated at 1.7, stable from 2 months ago. BUN chronically elevated. Potassium 6.0. This is likely a hemolyzed sample. We will redraw. On redraw, potassium 5.6, minimally elevated but with no EKG changes. Initial troponin within normal limits, 0.02. Imaging independently interpreted by me and significant for hypoventilatory changes, no obvious pneumonia. See radiology read for full review of final results. Repeat troponin was considered, but deemed unnecessary given initial troponin was drawn over 4 hours after episode and patient has remained chest pain-free since that time. I had extensive discussion with patient and family regarding her presentation. It does not seem consistent with an acute coronary event at this time. May be musculoskeletal in nature. I discussed with patient her laboratory abnormalities and recommended she follow-up with PCP for reassessment including of her anemia and chronic kidney disease. She was agreeable to plan. She was discharged in stable condition. Procedures Risk/Benefits of Procedure(s) Were Explained: Yes Critical Care Critical Care Time Critical Care Time: No
[2024-01-13 23:38] VITALS: BP 118/59; PULSE 76; RESP 16; TEMP 36.8; O2SAT 96; BMI 35.4
--- NOTE | 2024-01-14 00:02 | XR_ITS ---
PROCEDURE INFORMATION: Exam: XR Chest Exam date and time: 01/14/2024 12:02 AM Age: 78 years old Clinical indication: Dyspnea; Prior surgery; Surgery date: 6+ months; Surgery type: Pacemaker; Additional info: Intermittent cp SOA TECHNIQUE: Imaging protocol: Radiologic exam of the chest. Views: 1 view. COMPARISON: CR XR CHEST PORTABLE 09/27/2023 9:09 PM FINDINGS: Tubes, catheters and devices: A dual lead pacemaker enters from the left.: Lungs: No acute findings. Pleural spaces: Unremarkable. No pleural effusion. No pneumothorax. Heart/Mediastinum: Unremarkable. No cardiomegaly. Vasculature: Unremarkable. Bones/joints: Unremarkable. IMPRESSION: No acute findings. The left lung base is not well evaluated secondary to technique and patient's body habitus. PA and lateral imaging is recommended.
[2024-01-14 00:23] VITALS: BP 138/61; PULSE 71; RESP 18; O2SAT 100
[2024-01-14 00:30] VITALS: BP 120/59; PULSE 75; RESP 12; O2SAT 100
[2024-01-14 01:37] LABS: Basophils % 0.2 % (0.1-2.0); Eosinophils # 0.2 K/mm3 (0.0-0.4); Eosinophils % 3.8 % (0.1-12.0); Hematocrit 26.9 % (37.0-47.0); Hemoglobin 7.7 g/dL (12.2-16.2); Lymphocytes # 0.9 K/mm3 (0.7-4.5); Mean Corpuscular HGB Conc 28.6 g/dL (31.8-35.4); Mean Corpuscular Hemoglobin 27.8 pg (27.0-31.2); Mean Corpuscular Volume 97.1 fl (81-99); Mean Platelet Volume 8.4 fl (7.4-10.4); Monocytes # 0.3 K/mm3 (0.1-1.0); Monocytes % 5.2 % (1.7-9.3); Neutrophils # 4.1 K/mm3 (1.8-7.8); Neutrophils % 74.8 % (37.0-80.0); Platelet Count 146 K/mm3 (142-424); Red Blood Count 2.77 M/mm3 (4.20-5.40); Red Cell Distribution Width 18.4 % (11.5-17.5); White Blood Count 5.5 K/mm3 (4.8-10.8)
[2024-01-14 01:39] LABS: Chloride 105 mmol/L (98-107)
[2024-01-14 01:40] LABS: Sodium 141 mmol/L (136-145)
[2024-01-14 01:42] LABS: Alanine Aminotransferase 25 U/L (12-78); Albumin Level 3.4 g/dl (3.5-5.0); Alkaline Phosphatase 104 U/L (38-126); Aspartate Amino Transferase 39 U/L (14-36); Bilirubin,Total 0.5 mg/dl (0.2-1.3); Blood Urea Nitrogen 34 mg/dl (7-17); Creatinine Clearance Estimated 40 mL/min (50-200); Estimated Glomerular Filt Rate 29 ml/min (>60); GFR (African American) 35 ML/MIN (>60)
[2024-01-14 01:43] LABS: Albumin/Globulin Ratio 1.3 (1.1-1.8); Calcium 8.4 mg/dl (8.4-10.2); Carbon Dioxide 34 mmol/L (22.0-30.0); Globulin 2.6 g/dL (1.3-3.2); Glucose 167 mg/dl (74-100)
[2024-01-14 01:55] LABS: Troponin I 0.02 ng/ml (0.00-0.034)
[2024-01-14 02:10] LABS: Potassium 5.6 mmoL/L (3.5-5.1)
[2024-01-14 02:40] VITALS: BP 133/73; PULSE 72; RESP 13; TEMP 36.7; O2SAT 99
--- NOTE | 2024-01-14 23:32 | ECG_ITS ---
APPROVED REPORT Exam: Resting ECG HR:70 bpm ECG Measurements Heart Rate 70 AXES QRSd 158 QRS -71 QT 421 T 73 QTc 441 Conclusion ELECTRONIC VENTRICULAR PACEMAKER ABNORMAL RHYTHM ECG Electronically signed by : ALFREDO HARDIN, 01/14/2024 17:12:16
== END 2024-01-14 02:42 | disposition home or self-care (01) ==
PROVIDERS: Emergency Provider Emergency Medicine
DX: E87.6 Hypokalemia (principal); Z95.0 Presence of cardiac pacemaker; D63.1 Anemia in chronic kidney disease; N18.9 Chronic kidney disease, unspecified; E11.40 Type 2 diabetes mellitus with diabetic neuropathy, unspecified; K21.9 Gastro-esophageal reflux disease without esophagitis; I12.9 Hypertensive chronic kidney disease with stage 1 through stage 4 chronic kidney disease, or unspecified chronic kidney disease; Z79.4 Long term (current) use of insulin; Z79.84 Long term (current) use of oral hypoglycemic drugs; Z86.73 Personal history of transient ischemic attack (TIA), and cerebral infarction without residual deficits; Z79.01 Long term (current) use of anticoagulants; R07.9 Chest pain, unspecified
CPT/HCPCS: 71045; 80053; 84132; 84484; 85025; 93005; 99284

== ENCOUNTER 2024-01-17 16:18 | Outpatient (CLI) | payer MEDICARE, SELFPAY ==
[2024-01-17 16:47] LABS: Basophils % 0.3 % (0.1-2.0); Eosinophils # 0.3 K/mm3 (0.0-0.4); Eosinophils % 5.7 % (0.1-12.0); Hemoglobin 7.2 g/dL (12.2-16.2); Lymphocytes # 1.1 K/mm3 (0.7-4.5); Mean Corpuscular HGB Conc 28.9 g/dL (31.8-35.4); Mean Corpuscular Hemoglobin 27.9 pg (27.0-31.2); Mean Corpuscular Volume 96.6 fl (81-99); Mean Platelet Volume 8.3 fl (7.4-10.4); Monocytes # 0.3 K/mm3 (0.1-1.0); Monocytes % 6.2 % (1.7-9.3); Neutrophils # 3.3 K/mm3 (1.8-7.8); Neutrophils % 66.8 % (37.0-80.0); Platelet Count 150 K/mm3 (142-424); Red Blood Count 2.59 M/mm3 (4.20-5.40); Red Cell Distribution Width 18.4 % (11.5-17.5); Reticulocyte % (Auto) 2.5 % (0.9-3.2)
[2024-01-17 18:02] LABS: Blood Urea Nitrogen 36 mg/dl (7-17); Calcium 8.3 mg/dl (8.4-10.2); Carbon Dioxide 34 mmol/L (22.0-30.0); Chloride 104 mmol/L (98-107); Estimated Glomerular Filt Rate 27 ml/min (>60); GFR (African American) 33 ML/MIN (>60); Glucose 171 mg/dl (74-100); Potassium 5.5 mmoL/L (3.5-5.1); Sodium 142 mmol/L (136-145)
[2024-01-17 18:03] LABS: Anion Gap 9.5 mEq/L (5-15)
[2024-01-17 18:10] LABS: Iron 20 ug/dL (37-170)
[2024-01-17 18:29] LABS: Total Iron Binding Capacity 382 ug/dL (265-497)
== END 2024-01-17 23:59 | disposition home or self-care (01) ==
LOC: LAB.DROPOF 16:19
PROVIDERS: PCP Internal Medicine; Visit Provider Internal Medicine
DX: I50.32 Chronic diastolic (congestive) heart failure (principal); I10 Essential (primary) hypertension; I48.0 Paroxysmal atrial fibrillation; E11.42 Type 2 diabetes mellitus with diabetic polyneuropathy; E87.5 Hyperkalemia; D64.9 Anemia, unspecified; N19 Unspecified kidney failure; Z79.4 Long term (current) use of insulin
CPT/HCPCS: 80048; 83540; 83550; 85025; 85044

== ENCOUNTER 2024-02-28 17:36 | Outpatient (CLI) | payer MEDICARE, SELFPAY ==
[2024-02-28 18:29] LABS: Basophils % 0.2 % (0.1-2.0); Eosinophils # 0.2 K/mm3 (0.0-0.4); Eosinophils % 3.8 % (0.1-12.0); Hemoglobin 7.7 g/dL (12.2-16.2); Lymphocytes # 0.8 K/mm3 (0.7-4.5); Lymphocytes % 12.8 % (10-50); Mean Corpuscular HGB Conc 28.7 g/dL (31.8-35.4); Mean Corpuscular Hemoglobin 26.9 pg (27.0-31.2); Mean Corpuscular Volume 93.8 fl (81-99); Mean Platelet Volume 9.5 fl (7.4-10.4); Monocytes # 0.3 K/mm3 (0.1-1.0); Monocytes % 5.1 % (1.7-9.3); Neutrophils # 4.7 K/mm3 (1.8-7.8); Neutrophils % 78.1 % (37.0-80.0); Platelet Count 151 K/mm3 (142-424); Red Blood Count 2.85 M/mm3 (4.20-5.40); Red Cell Distribution Width 18.6 % (11.5-17.5); White Blood Count 6.1 K/mm3 (4.8-10.8)
[2024-02-28 18:37] LABS: Hematocrit 26.7 % (37.0-47.0)
[2024-02-28 18:41] LABS: Alanine Aminotransferase 16 U/L (12-78); Albumin Level 3.2 g/dl (3.5-5.0); Albumin/Globulin Ratio 1.3 (1.1-1.8); Alkaline Phosphatase 86 U/L (38-126); Anion Gap 13.1 mEq/L (5-15); Aspartate Amino Transferase 28 U/L (14-36); Bilirubin,Total 0.5 mg/dl (0.2-1.3); Blood Urea Nitrogen 34 mg/dl (7-17); Calcium 8.3 mg/dl (8.4-10.2); Carbon Dioxide 29 mmol/L (22.0-30.0); Chloride 106 mmol/L (98-107); Estimated Glomerular Filt Rate 29 ml/min (>60); GFR (African American) 35 ML/MIN (>60); Globulin 2.5 g/dL (1.3-3.2); Glucose 172 mg/dl (74-100); Potassium 4.1 mmoL/L (3.5-5.1); Sodium 144 mmol/L (136-145); Total Protein,Serum 5.7 g/dl (6.3-8.2)
== END 2024-02-28 23:59 | disposition home or self-care (01) ==
LOC: LAB.DROPOF 17:43
PROVIDERS: PCP Internal Medicine; Visit Provider Internal Medicine
DX: R10.9 Unspecified abdominal pain (principal)
CPT/HCPCS: 80053; 85025

== ENCOUNTER 2024-03-14 16:34 | Outpatient (CLI) | payer MEDICARE, SELFPAY ==
[2024-03-14 19:18] LABS: Iron 42 ug/dL (37-170)
[2024-03-14 19:27] LABS: Total Iron Binding Capacity 339 ug/dL (265-497)
== END 2024-03-14 23:59 | disposition home or self-care (01) ==
LOC: LAB 16:35
PROVIDERS: PCP Internal Medicine; Visit Provider Internal Medicine
DX: D64.9 Anemia, unspecified (principal); N18.9 Chronic kidney disease, unspecified; E61.1 Iron deficiency
CPT/HCPCS: 36415; 83540; 83550

== ENCOUNTER 2024-03-19 13:30 | Outpatient (CLI) | payer MEDICARE, SELFPAY ==
[2024-03-21 13:53] LABS: Occult Blood,Stool Negative (Negative)
== END 2024-03-19 23:59 | disposition home or self-care (01) ==
LOC: LAB.DROPOF 03-21 13:31
PROVIDERS: PCP Internal Medicine; Visit Provider Internal Medicine
DX: K92.1 Melena (principal)
CPT/HCPCS: 82272; G0328

== ENCOUNTER 2024-03-20 13:00 | Outpatient (CLI) | payer MEDICARE, SELFPAY ==
[2024-03-21 13:54] LABS: Occult Blood,Stool Negative (Negative)
== END 2024-03-20 23:59 | disposition home or self-care (01) ==
LOC: LAB.DROPOF 03-21 13:26
PROVIDERS: PCP Internal Medicine; Visit Provider Internal Medicine
DX: K92.1 Melena (principal)
CPT/HCPCS: 82272; G0328

== ENCOUNTER 2024-04-03 17:18 | Inpatient (IN) | payer OTHER, MEDICARE, SELFPAY ==
[2024-04-03 17:19] VITALS: BP 125/55; PULSE 71; RESP 10; TEMP 36.6; O2SAT 100; BMI 31.9
--- NOTE | 2024-04-03 17:23 | ECG_ITS ---
APPROVED REPORT Exam: Resting ECG HR:98 bpm ECG Measurements Heart Rate 98 AXES QRSd 144 QRS -65 QT 412 T 131 QTc 467 Conclusion ELECTRONIC VENTRICULAR PACEMAKER ABNORMAL RHYTHM ECG UNCONFIRMED REPORT Electronically signed by : Shun Aldrich, 04/03/2024 23:15:53
--- NOTE | 2024-04-03 18:04 | XR_ITS ---
PROCEDURE INFORMATION: Exam: XR Chest Exam date and time: 04/03/2024 6:41 PM Age: 78 years old Clinical indication: Dyspnea TECHNIQUE: Imaging protocol: Radiologic exam of the chest. Views: 1 view. COMPARISON: CR XR CHEST PORTABLE 01/14/2024 12:02 AM FINDINGS: Tubes, catheters and devices: Nodular appearing density left mid lung partially obscured by the overlying generator pack. This density overlies the 5th posterior rib and 3rd anterior rib. Lungs: Mild bibasilar atelectasis. Lungs are otherwise clear. Pleural spaces: Unremarkable. No pleural effusion. No pneumothorax. Heart/Mediastinum: Cardiomegaly is stable. Stable position dual lead pacer. Bones/joints: Unremarkable. IMPRESSION: 1. Cardiomegaly. Bibasilar atelectasis. 2. Nodular appearing density left mid lung not seen previously. Favor summation shadows but developing nodule not totally excluded. Advise further assessment with nonemergent chest CT.
--- NOTE | 2024-04-03 18:04 | CT_ITS ---
PROCEDURE INFORMATION: Exam: CT Head Without Contrast Exam date and time: 04/03/2024 6:41 PM Age: 78 years old Clinical indication: Altered mental status/memory loss; Additional info: AMS TECHNIQUE: Imaging protocol: Computed tomography of the head without contrast. Radiation optimization: All CT scans at this facility use at least one of these dose optimization techniques: automated exposure control; mA and/or kV adjustment per patient size (includes targeted exams where dose is matched to clinical indication); or iterative reconstruction. COMPARISON: CT HEAD/BRAIN WO CON 09/27/2023 9:03 PM FINDINGS: Brain: Mild supratentorial white matter hypodensities are likely the sequela of chronic small vessel ischemic disease. Mild atrophy. 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 No hemorrhage, edema, or mass effect. Cerebral ventricles: No ventriculomegaly. Paranasal sinuses: Visualized sinuses are unremarkable. No fluid levels. Mastoid air cells: Visualized mastoid air cells are well aerated. Bones: Unremarkable. No acute fracture. Soft tissues: Unremarkable. Vasculature: Extensive calcified plaque in the distal internal carotid arteries. IMPRESSION: No acute intracranial findings.
--- NOTE | 2024-04-03 18:06 | PC.NURSE ---
Dr. Aldrich states he removed the pts fentnyl patch off her R deltoid.
--- NOTE | 2024-04-03 18:07 | CT_ITS ---
PROCEDURE INFORMATION: Exam: CT Abdomen And Pelvis Without Contrast Exam date and time: 04/03/2024 6:43 PM Age: 78 years old Clinical indication: Abdominal pain; Generalized; Additional info: Diffuse abd pain TECHNIQUE: Imaging protocol: Computed tomography of the abdomen and pelvis without contrast. Radiation optimization: All CT scans at this facility use at least one of these dose optimization techniques: automated exposure control; mA and/or kV adjustment per patient size (includes targeted exams where dose is matched to clinical indication); or iterative reconstruction. COMPARISON: CT ABDOMEN PELVIS WO CON 12/19/2023 11:05 AM and 12/04/2021 FINDINGS: Lungs: See Pleural spaces finding. Pleural spaces: Small to moderate right and small left sided pleural effusions and associated bibasilar fibro atelectatic changes. Cardiomegaly. Moderate coronary artery calcifications suggesting coronary artery disease. Liver: Normal. No mass. Gallbladder and biliary ducts: Status post cholecystectomy. No evident bile duct dilatation allowing for prior cholecystectomy. Pancreas: Atrophy of the pancreas which is otherwise unremarkable. Spleen: Normal. No splenomegaly. Adrenal glands: Stable small benign-appearing left adrenal nodule dating back to 12/04/2021 compatible with adenoma. Kidneys and ureters: Kidneys and ureters unremarkable with no obstructing stones or uropathy. Stomach and bowel: Status post partial colectomy of the distal colon with reanastomosis in the upper left side of the pelvis. Questionable developing pneumatosis versus artifact related to air trapped between the intraluminal contents and colon wall involving the mid ascending colon centered on axial image 64 series 3 and coronal image 46. Colon otherwise unremarkable. GI tract structures otherwise unremarkable with no evident wall thickening allowing for incomplete distention. Appendix: No evidence of appendicitis. Intraperitoneal space: Moderate amounts of free fluid noted throughout the abdomen and pelvis. Vasculature: Atherosclerotic changes of the aorta and iliacs noted. No evidence of aneurysm. Lymph nodes: Unremarkable. No enlarged lymph nodes. Urinary bladder: Unremarkable as visualized. Reproductive: New hysterectomy. Bones/joints: Extensive postop changes of the lumbar spine noted. Soft tissues: [id number] body wall edema and edema of the intra-abdominal fat tissues compatible with anasarca. IMPRESSION: 1. Possible mild pneumatosis versus artifact related to air trapped between the intraluminal contents and colon wall of the mid ascending colon. Clinical assessment and follow-up advised. 2. Ascites and [id number] anasarca changes. 3. Bilateral pleural effusions [id number]-left. 4. Moderate coronary artery calcifications suggesting coronary artery disease. 5. Additional nonemergent findings as above.
[2024-04-03 18:13] LABS: Microscopic, Urine URINE MICROSCOPIC (MICROSCOPIC)
[2024-04-03 18:17] LABS: Chloride 106 mmol/L (98-107); Potassium 5.5 mmoL/L (3.5-5.1); Sodium 144 mmol/L (136-145)
[2024-04-03 18:17] LABS: Appearance,Urine CLOUDY (Clear); Bilirubin,Urine Negative (Negative); Blood, Urine TRACE-I (Negative); Color,Urine YELLOW (Yellow); Glucose,Urine (UA) 2+ (Negative); Ketones,Urine Negative (Negative); Leukocyte Esterase,Urine 2+ (Negative); Nitrate,Urine Negative (Negative); Protein,Urine Negative (Negative); Specific Gravity, Urine 1.015 (1.005-1.030); Urobilinogen,Urine 0.2 EU/dl (0.2)
--- NOTE | 2024-04-03 18:17 | HMH.EDGENADL ---
Discharge Plan Disposition Patient Disposition: Admitted Condition: Fair Clinical Impressions Clinical Impression: Acute encephalopathy, CKD (chronic kidney disease), Acute UTI, Candidal intertrigo, Need for comfort care Discharge ED Provider: Lia Aldrich General Adult HPI General Chief complaint: Altered Mental Status Stated complaint: Weakness Time Seen by Provider: 04/03/24 17:28 Mode of Arrival: EMS Source of Information: Relative and EMS Limitations: Altered Mental Status Description of Symptoms (Recalled from ER Triage Doc. by RN): pt presents to ED via [facility] for AMS. family reports pt has been having hallucinations, and foul smelling urine. History of Present Illness HPI narrative: Patient is a 78-year-old female presenting today with altered mental status and concern for urinary tract infection. She is accompanied by her son and her at the bedside and brought in by EMS. states that she has significant decline over the last several years after having a stroke they have increasing difficulty caring for her at home over the last several days she is gotten progressively worse with hallucinations that are visual very foul-smelling urine and complaints of pain. She is on oxycodone and fentanyl which were administered today even in the setting of significant encephalopathy. No fevers or cough. She does have a history of aspiration several years ago but has not aspirated clinically from historical standpoint according to her . The patient is altered and her history is limited but she also complains of abdominal pain. Related Data Home Medications Medication Instructions Recorded Confirmed apixaban 5 mg tablet (Eliquis) 5 mg PO BID 09/27/23 03/19/24 bisoprolol fumarate 10 mg tablet 10 mg PO DAILY 09/27/23 03/19/24 empagliflozin 10 mg tablet 10 mg PO DAILY 09/27/23 03/19/24 (Jardiance) famotidine 20 mg tablet 20 mg PO BID 09/27/23 03/19/24 fentanyl 25 mcg/hr transdermal 25 mcg transdermal Q72H 09/27/23 03/19/24 patch gabapentin 600 mg tablet 600 mg PO QID 09/27/23 03/19/24 hydroxychloroquine 200 mg tablet 200 mg PO BID 09/27/23 03/19/24 insulin aspart U-100 100 unit/mL 10 unit SQ DAILYP PRN Hyperglycemia 09/27/23 03/19/24 (3 mL) subcutaneous pen (Novolog FlexPen U-100 Insulin aspart) insulin glargine 100 unit/mL 35 unit SQ HS 09/27/23 03/19/24 subcutaneous solution (Lantus U-100 Insulin) pantoprazole 40 mg tablet,delayed 40 mg PO BID 09/27/23 03/19/24 release acetaminophen 500 mg tablet 500 mg PO BIDP PRN Pain 09/28/23 09/28/23 melatonin 3 mg tablet 3 mg PO DAILYP PRN Sleep 09/28/23 03/19/24 polyethylene glycol 3350 17 gram 17 g PO BID Constipation 09/28/23 03/19/24 oral powder packet alprazolam 0.5 mg tablet 0.5 mg PO DAILY 03/19/24 03/19/24 Previous Rx's Medication Instructions Recorded oxycodone 10 mg tablet 10 mg PO QID PRN pain #120 tabs 03/12/24 atorvastatin 40 mg tablet 40 mg PO HS #90 tabs 03/16/24 furosemide 80 mg tablet 80 mg PO .Q M W F edema #30 tabs 03/21/24 ondansetron HCl 4 mg tablet 4 mg PO Q8HP PRN Nausea #20 tabs 03/21/24 escitalopram oxalate 5 mg tablet See Rx Instructions .Route 03/26/24 .COMPLEX #90 tabs levofloxacin 250 mg tablet 250 mg PO DAILY #7 tabs 04/03/24 Allergies Allergy/AdvReac Type Severity Reaction Status Date / Time amitriptyline [From Elavil] Allergy Severe F-HMTQEF-QORD/THROAT; Verified 03/19/24 14:25 SEIZURES chlorpromazine Allergy Severe SEIZURES Verified 03/19/24 14:25 [From Thorazine] dichloralphenazone Allergy Severe S-SWELLS-OR Verified 03/19/24 14:25 [From Midrin] AL/THROAT isometheptene [From Midrin] Allergy Severe S-SWELLS-OR Verified 03/19/24 14:25 AL/THROAT prochlorperazine Allergy Severe SEIZURES Verified 03/19/24 14:25 [From Compazine] adhesive tape Allergy Intermediate I-RASH Verified 03/19/24 14:25 aspirin Allergy Intermediate COLD Verified 08/11/23 14:29 SWEATS , N/V cyclobenzaprine Allergy Unknown Unknown Verified 08/11/23 14:29 [From FLEXERIL] allergy reaction duloxetine [DULOXETINE] Allergy Unknown Unknown Verified 08/11/23 14:29 allergy reaction Iodinated Contrast Media Allergy Unknown Unknown Verified 08/11/23 14:29 [IODINATED CONTRAST MEDIA - allergy ORAL AND] reaction Sulfa (Sulfonamide Allergy Unknown CONTRAINDICATED Verified 03/19/24 14:25 Antibiotics) WITH ASTHMA trimethoprim [TRIMETHOPRIM] Allergy Unknown Unknown Verified 03/19/24 14:25 allergy reaction leflunomide Allergy rash, Verified 03/19/24 14:25 redness Macrolide Antibiotics Allergy rash, Verified 03/19/24 14:25 redness Beta-Blockers AdvReac Severe MAKES Verified 03/19/24 14:25 (Beta-Adrenergic Bloc ASTHMA WORSE caffeine [From Cafergot] AdvReac Mild NA-NAUSEA Verified 03/19/24 14:25 ergotamine [From Cafergot] AdvReac Mild NA-NAUSEA Verified 03/19/24 14:25 pregabalin [From Lyrica] AdvReac Mild TOO Verified 03/19/24 14:25 SEDATED NSAIDS (Non-Steroidal AdvReac Unknown Verified 03/19/24 14:25 Anti-Inflamma allergy reaction PFSH PFS Disclaimer: The information contained in this section may have been updated after the patient was seen, as this information can be updated by other users. Medical History Frequent headaches CKD (chronic kidney disease) stage 3, GFR 30-59 ml/min Dysphagia Pacemaker CVA (cerebral vascular accident) Chronic narcotic use Severe sleep apnea Obese Diabetic neuropathy Hypertension Polypharmacy GERD (gastroesophageal reflux disease) Diabetes Chronic pain disorder Degenerative joint disease (DJD) of lumbar spine Lumbosacral radiculopathy due to degenerative joint disease of spine Surgical History H/O: hysterectomy History of carpal tunnel surgery History of spinal surgery History of colon resection Family History Other Diabetes Social History Smoking Status: Former smoker second hand exposure: No alcohol intake: never substance use type: denies use current occupational status: disabled Travel in the last 8 weeks: None household members: spouse housing: other number of children: 3 current occupational exposures/hazards: No caffeine: Yes ROS Obtained: Yes All systems reviewed & no additional complaints except as documented Physical Exam General General appearance: alert and lethargic Respiratory Respiratory exam: Present other (Decreased respiratory effort oxygen saturation is normal on 2 L nasal cannula pupils are not pinpoint) Cardiovascular Cardiovascular exam: Present regular rate and normal rhythm Abdominal Exam Abdominal exam: Present tenderness (Patient diffusely tender in her abdomen) Neurological Exam Neurological exam: Absent alert or oriented X3 (Oriented only to her name otherwise nonfocal neurologic exam) Expanded Neurological Exam Coma scale eye opening: To pain Coma scale motor response: Obeys commands Coma scale verbal response: Confused Coma scale total: 12 Skin Skin exam: Present other (Patient has diffuse candidal intertrigo between skin folds including under the breasts and under her pannus around her groins also had a fentanyl patch that was taken off on her left shoulder) Medical Decision Making Abraham Inquiry Pt receiving controlled substance: No Vital Signs: 04/03/24 17:19 04/03/24 19:01 04/03/24 19:31 Temperature 97.8 F Temperature Source Oral Pulse Rate 70 75 Pulse Rate [Left Radial] 71 Respiratory Rate 10 L Blood Pressure 124/63 111/51 L Blood Pressure [Right Arm] 125/55 L Blood Pressure Mean 79 Blood Pressure Mean [Right Arm] 78 Blood Pressure Source Blood Pressure Position 02 Sat by Pulse Oximetry 100 100 100 Oxygen Delivery Method Room Air Room Air Oxygen Flow Rate (LPM) 04/03/24 19:59 04/03/24 21:13 Temperature 97.7 F Temperature Source Axillary Pulse Rate 75 67 Pulse Rate [Left Radial] Respiratory Rate 18 Blood Pressure 120/57 L 122/61 Blood Pressure [Right Arm] Blood Pressure Mean 73 Blood Pressure Mean [Right Arm] Blood Pressure Source Automatic Cuff Blood Pressure Position Supine 02 Sat by Pulse Oximetry 99 Oxygen Delivery Method Room Air Nasal Cannula Oxygen Flow Rate (LPM) 2 Lab Data Lab results reviewed: Yes I reviewed the patient's lab results. Lab Results 04/03/24 17:32: Urine Color Yellow, Urine Appearance Cloudy, Urine pH 6.0, Ur Specific Crete 1.015, Urine Protein Negative, Urine Glucose (UA) 2+, Urine Ketones Negative, Urine Blood Trace-i, Urine Nitrate Negative, Urine Bilirubin Negative, Urine Urobilinogen 0.2, Ur Leukocyte Esterase 2+ A, Urine RBC Occasional, Urine WBC 10-20, Ur Squamous Epith Cells Occasional, Urine Bacteria Trace, Urine Yeast 4+ 04/03/24 18:00: WBC 6.4, RBC 3.00 L, Hgb 8.3 L, Hct 29.2 L, MCV 97.4, MCH 27.8, MCHC 28.6 L, RDW 21.9 H, Plt Count 164, MPV 8.6, Neut % (Auto) 86.9 H, Lymph % (Auto) 8.5 L, Patrick % (Auto) 4.0, Eos % (Auto) 0.2, Baso % (Auto) 0.5, Neut # (Auto) 5.6, Lymph # (Auto) 0.6 L, Patrick # (Auto) 0.3, Eos # (Auto) 0.0, Baso # (Auto) 0.0, Total Counted 100, Neutrophils % (Manual) 90 H, Lymphocytes % (Manual) 8 L, Monocytes % (Manual) 1 L, Basophils % (Manual) 1.0, Platelet Estimate Normal, Hypochromasia 2+, Ovalocytes 1+, Sodium 144, Potassium 5.5 H, Chloride 106, Carbon Dioxide 35 H, Anion Gap 8.5, BUN 44 H, Creatinine 1.90 H, Estimated Creat Clear 37, Estimated GFR 26 L, Est GFR ( Amer) 31 L, Glucose 154 H, Calcium 8.5, Total Bilirubin 0.8, AST 49 H, ALT 34, Alkaline Phosphatase 146 H, Troponin I 0.03, Total Protein 6.4, Albumin 3.7, Globulin 2.7, Albumin/Globulin Ratio 1.4 04/03/24 18:10: VBG pH 7.32, VBG pCO2 59.4 H, VBG pO2 44.9 H, VBG HCO3 29.8, VBG Total CO2 31.6 H, VBG O2 Saturation 73.7 H, VBG Base Excess 3.7 H, VBG Lactic Acid 2.2 H 04/03/24 21:20: Troponin I 0.03 04/03/24 18:00 04/03/24 18:00 Orders (Tests/Meds): ED MEDICATIONS Generic Name Dose Route Start Last Admin Trade Name Freq PRN Reason Stop Dose Admin Ceftriaxone Sodium 1 gm/ 50 mls @ 100 mls/hr 04/03/24 19:00 04/03/24 18:53 Sodium Chloride IV 04/13/24 18:59 100 mls/hr Q24H DENISE Administration Discontinued Medications Generic Name Dose Route Start Last Admin Trade Name Mary PRN Reason Stop Dose Admin Lactated Ringer's 1,000 mls @ 999 mls/hr 04/03/24 18:15 04/03/24 18:41 Lactated Ringer's 1000 Ml Bag IV 04/03/24 19:15 999 mls/hr .Q1H1M DENISE Administration Ceftriaxone Sodium 1 gm/ 50 mls @ 100 mls/hr 04/03/24 18:37 04/03/24 18:48 Sodium Chloride IV 04/03/24 19:06 Not Given ONCE ONE ORDERS Category Date Time Status CT abdomen pelvis wo con Stat Cat Scan 04/03/24 18:[address] head/brain wo con Stat Cat Scan 04/03/24 18:04 Completed CXR --portable [XR chest portable] Stat Exams 04/03/24 18:04 Completed CBC w/Auto Diff [Complete Blood Count Auto Diff] Stat Lab 04/03/24 18:00 Completed CMP [Comprehensive Metabolic Panel] Stat Lab 04/03/24 18:00 Results Lactate Venous Stat Lab 04/03/24 18:10 Ordered TSH [Thyroid Stimulating Hormone] Stat Lab 04/03/24 18:00 Results Trop I [Troponin I] Stat Lab 04/03/24 18:00 Results Troponin I Q3H Lab 04/03/24 21:20 Completed Troponin I Q3H Lab 04/04/24 00:15 Ordered UA [Urinalysis and Microscopic] Stat Lab 04/03/24 17:32 Completed Blood Culture Stat Micro 04/03/24 18:00 Received Urine Culture Stat Micro 04/03/24 17:32 Received Venous Blood Gas Stat RT 04/03/24 18:10 Completed Medical Decision Narrative: 78-year-old female presented with acute encephalopathy appears to not be able to be cared for at home she has significant candidal intertrigo has a very foul-smelling urine and Huynh catheter was placed to drain her bladder with very turbulent fluid. Urinalysis is positive for urinary tract infection will initiate broad-spectrum antibiotics for urinary tract infection. She does not appear to be in shock or have any sources of infection elsewhere aside from the skin which is likely just related to hygiene. We will place some barrier creams on these areas. Given the fact that she is acutely encephalopathic we will also get a CT scan of her head her history and physical are limited but she had significant abdominal pain on my exam will get a noncontrasted CT scan she has a contrast allergy so will not use contrast. She has chronic renal insufficiency as well. She will need to be admitted for IV antibiotics management of her encephalopathy and if she improves will likely need placement as they are having very difficult time caring for her at home as well. Reassessment 8:[address] findings as below and on my personal interpretation there is ascites and moderate to severe anasarca. There is possible pneumatosis called by radiology and she does have some tenderness this is unlikely lactate is normal she had chronic abdominal discomfort. After discussing with the family her daughters are now at the bedside and they inform me that she was actually admitted to hospice yesterday. This is all very new and not mature with regards to how the family do this but they are certain that she would not want any surgical intervention and that their main desire is comfort care at the moment. However they agree that father cannot care for their mother at home right now he is 84 years old and their desires for her to be brought in the hospital and further discussion regarding case management for possible inpatient hospice or if she improves possible placement with regards to the urinary tract infection. She is DNR and DNI and not a surgical candidate nor desires any type of surgical intervention. Patient will be admitted to hospital medicine for further evaluation and treatment and specifically for goals of care and final disposition tomorrow once this is solidified more. 1. Possible mild pneumatosis versus artifact related to air trapped between the intraluminal contents and colon wall of the mid ascending colon. Clinical assessment and follow-up advised. 2. Ascites and [id number] anasarca changes. 3. Bilateral pleural effusions [id number]. 4. Moderate coronary artery calcifications suggesting coronary artery disease. 5. Additional nonemergent findings as above. -- Critical Care Critical Care Time Critical Care Time: Yes Attestation: On 04/03/24, the high probability of a clinically significant, sudden or life threatening deterioration of the following system(s) required my full and direct attention, intervention and personal management. The time I documented below is in addition to time spent performing reported procedures but includes the following listed in this critical care notation. Total Time Total Critical Care Time: 35
[2024-04-03 18:18] LABS: VBG Base Excess 3.7 mmol/L (-2.4-2.3); VBG HCO3 29.8 mmol/L (23-30); VBG Oxygen Saturation 73.7 % (50-70); VBG PH 7.32 mmol/L (7.31-7.41); VBG PO2 44.9 mmol/L (28-40); VBG Total CO2 31.6 mmol/L (23-27)
[2024-04-03 18:19] LABS: Blood Urea Nitrogen 44 mg/dl (7-17); Creatinine Clearance Estimated 37 mL/min (50-200); Estimated Glomerular Filt Rate 26 ml/min (>60); GFR (African American) 31 ML/MIN (>60)
[2024-04-03 18:20] LABS: Alanine Aminotransferase 34 U/L (12-78); Albumin Level 3.7 g/dl (3.5-5.0); Albumin/Globulin Ratio 1.4 (1.1-1.8); Alkaline Phosphatase 146 U/L (38-126); Anion Gap 8.5 mEq/L (5-15); Aspartate Amino Transferase 49 U/L (14-36); Bilirubin,Total 0.8 mg/dl (0.2-1.3); Calcium 8.5 mg/dl (8.4-10.2); Carbon Dioxide 35 mmol/L (22.0-30.0); Globulin 2.7 g/dL (1.3-3.2); Glucose 154 mg/dl (74-100); Total Protein,Serum 6.4 g/dl (6.3-8.2)
[2024-04-03 18:20] LABS: Lactate Venous 2.2 mmol/L (0.4-2.0); VBG PCO2 59.4 mmol/L (35-51)
[2024-04-03 18:23] LABS: Basophils % 0.5 % (0.1-2.0); Eosinophils % 0.2 % (0.1-12.0); Hematocrit 29.2 % (37.0-47.0); Hemoglobin 8.3 g/dL (12.2-16.2); Lymphocytes # 0.6 K/mm3 (0.7-4.5); Lymphocytes % 8.5 % (10-50); Mean Corpuscular HGB Conc 28.6 g/dL (31.8-35.4); Mean Corpuscular Hemoglobin 27.8 pg (27.0-31.2); Mean Corpuscular Volume 97.4 fl (81-99); Mean Platelet Volume 8.6 fl (7.4-10.4); Monocytes # 0.3 K/mm3 (0.1-1.0); Neutrophils # 5.6 K/mm3 (1.8-7.8); Neutrophils % 86.9 % (37.0-80.0); Platelet Count 164 K/mm3 (142-424); Red Cell Distribution Width 21.9 % (11.5-17.5); White Blood Count 6.4 K/mm3 (4.8-10.8)
[2024-04-03 18:25] LABS: MANUAL DIFFERENTIAL MANUAL DIFFERENTIAL (MANUAL DIFF)
[2024-04-03 18:32] LABS: Troponin I 0.03 ng/ml (0.00-0.034)
--- NOTE | 2024-04-03 18:39 | PC.NURSE ---
pt to CT scan
[2024-04-03] MEDS: LACTATED RINGERS 1000ML 1,000 ML 999 ML IV (18:41)
[2024-04-03 18:44] LABS: RBC,Urine Occasional #/hpf (0-3); Yeast,Urine 4+ /lpf
[2024-04-03 18:45] LABS: Bacteria,Urine Trace /lpf; Squamous Epithelial Cell,Urine Occasional #/hpf (0-5)
[2024-04-03 18:53] LABS: Hypochromasia 2+; Lymphocytes % 8 % (10-50); Monocytes % 1 % (2-9); Neutrophils % 90 % (42-76); Ovalocytes 1+; Platelet Estimate Normal; Total Cells Counted 100
[2024-04-03] MEDS: CEFTRIAXONE 1 GM 1 GM in 0.9 % SODIUM CHLORIDE 50 ML IV (18:53)
--- NOTE | 2024-04-03 18:53 | PC.NURSE ---
fluids stopped per verbal order MD gramajo
[2024-04-03 19:01] VITALS: BP 124/63; PULSE 70; O2SAT 100
[2024-04-03 19:31] VITALS: BP 111/51; PULSE 75; O2SAT 100
[2024-04-03 19:59] VITALS: BP 120/57; PULSE 75; O2SAT 99
--- NOTE | 2024-04-03 20:02 | PC.NURSE ---
speaking with hospitalist at this time.
--- NOTE | 2024-04-03 20:31 | PC.NURSE ---
call placed to hospitalist for admit; didn't answer
--- NOTE | 2024-04-03 21:03 | PC.NURSE ---
house notified of bed request at this time
--- NOTE | 2024-04-03 21:12 | PC.NURSE ---
report called to GONZALEZ Robles on second floor
[2024-04-03 21:13] VITALS: BP 122/61; PULSE 67; RESP 18; TEMP 36.5; O2SAT 100
--- NOTE | 2024-04-03 21:15 | P.HP_ITS ---
History of Present Illness *Admission Date: 04/03/24 *Reason for visit:: AMS *History of present illness: This is a 78-year-old female with multiples co-morbidities that recent signed for Hospice care at home that was brought in by EMS with altered mental status and concern for urinary tract infection, and abdominal discomfort. She is accompanied by her son and her at the bedside. states that she has significant decline over the last several years after having a stroke they have increasing difficulty caring for her at home over the last several days she is gotten progressively worse with hallucinations that are visual very foul- smelling urine and complaints of pain. She is on oxycodone and fentanyl which were administered today even in the setting of significant encephalopathy. No fevers or cough. She does have a history of aspiration several years ago but has not aspirated clinically from historical standpoint according to her . The patient is altered and her history is limited but she also complains of abdominal pain. Admitted for further management. [facility] Disclaimer: The information contained in this section may have been updated after the patient was seen, as this information can be updated by other users. Medical History Frequent headaches CKD (chronic kidney disease) stage 3, GFR 30-59 ml/min Dysphagia Pacemaker CVA (cerebral vascular accident) Chronic narcotic use Severe sleep apnea Obese Diabetic neuropathy Hypertension Polypharmacy GERD (gastroesophageal reflux disease) Diabetes Chronic pain disorder Degenerative joint disease (DJD) of lumbar spine Lumbosacral radiculopathy due to degenerative joint disease of spine Surgical History H/O: hysterectomy History of carpal tunnel surgery History of spinal surgery History of colon resection Family History Other Diabetes Social History (Updated 04/03/24 @ 23:34 by Margaret Solitario RN) Smoking Status: Never smoker second hand exposure: No alcohol intake: never substance use type: denies use current occupational status: disabled Travel in the last 8 weeks: None household members: spouse housing: other number of children: 3 current occupational exposures/hazards: No caffeine: Yes Review of Systems Review of Systems Review of systems:: unable to obtain Meds Home Medications and Allergies Home Medications Medication Instructions Recorded Confirmed Type apixaban 5 mg tablet (Eliquis) 5 mg PO BID 09/27/23 04/03/24 History bisoprolol fumarate 10 mg tablet 10 mg PO DAILY 09/27/23 04/03/24 History empagliflozin 10 mg tablet 10 mg PO DAILY 09/27/23 04/04/24 History (Jardiance) famotidine 20 mg tablet 20 mg PO BID 09/27/23 04/03/24 History fentanyl 25 mcg/hr transdermal 25 mcg transdermal Q72H 09/27/23 04/03/24 History patch gabapentin 600 mg tablet 600 mg PO QID 09/27/23 04/03/24 History hydroxychloroquine 200 mg tablet 200 mg PO BID 09/27/23 04/03/24 History insulin aspart U-100 100 unit/mL 10 unit SQ DAILYP PRN Hyperglycemia 09/27/23 04/03/24 History (3 mL) subcutaneous pen (Novolog FlexPen U-100 Insulin aspart) insulin glargine 100 unit/mL 35 unit SQ HS 09/27/23 04/03/24 History subcutaneous solution (Lantus U-100 Insulin) pantoprazole 40 mg tablet,delayed 40 mg PO BID 09/27/23 04/03/24 History release acetaminophen 500 mg tablet 500 mg PO BIDP PRN Pain 09/28/23 04/03/24 History melatonin 3 mg tablet 3 mg PO HS 09/28/23 04/03/24 History polyethylene glycol 3350 17 gram 17 g PO BID PRN Constipation 09/28/23 04/03/24 History oral powder packet atorvastatin 40 mg tablet 40 mg PO HS #90 tabs 03/16/24 04/03/24 Rx alprazolam 0.5 mg tablet 0.5 mg PO TID PRN Anxiety 03/19/24 04/04/24 History escitalopram oxalate 5 mg tablet 5 mg PO DAILY 04/03/24 04/03/24 History furosemide 80 mg tablet 80 mg PO MOWEFR 04/03/24 04/04/24 History oxycodone 10 mg tablet 10 mg PO QID PRN Moderate Pain 04/03/24 04/03/24 History (Scale Score 5-6) cefdinir 300 mg capsule 300 mg PO BID 5 days #10 caps 04/04/24 Rx New Prescriptions to Start Prescriptions: Shun Davey Allergies Allergy/AdvReac Type Severity Reaction Status Date / Time amitriptyline [From Elavil] Allergy Severe S-HUVPHO-NBSI/THROAT; Verified 03/19/24 14:25 SEIZURES chlorpromazine Allergy Severe SEIZURES Verified 03/19/24 14:25 [From Thorazine] dichloralphenazone Allergy Severe S-SWELLS-OR Verified 03/19/24 14:25 [From Midrin] AL/THROAT isometheptene [From Midrin] Allergy Severe S-SWELLS-OR Verified 03/19/24 14:25 AL/THROAT prochlorperazine Allergy Severe SEIZURES Verified 03/19/24 14:25 [From Compazine] adhesive tape Allergy Intermediate I-RASH Verified 03/19/24 14:25 aspirin Allergy Intermediate COLD Verified 08/11/23 14:29 SWEATS , N/V cyclobenzaprine Allergy Unknown Unknown Verified 08/11/23 14:29 [From FLEXERIL] allergy reaction duloxetine [DULOXETINE] Allergy Unknown Unknown Verified 08/11/23 14:29 allergy reaction Iodinated Contrast Media Allergy Unknown Unknown Verified 08/11/23 14:29 [IODINATED CONTRAST MEDIA - allergy ORAL AND] reaction Sulfa (Sulfonamide Allergy Unknown CONTRAINDICATED Verified 03/19/24 14:25 Antibiotics) WITH ASTHMA trimethoprim [TRIMETHOPRIM] Allergy Unknown Unknown Verified 03/19/24 14:25 allergy reaction leflunomide Allergy rash, Verified 03/19/24 14:25 redness Macrolide Antibiotics Allergy rash, Verified 03/19/24 14:25 redness Beta-Blockers AdvReac Severe MAKES Verified 03/19/24 14:25 (Beta-Adrenergic Bloc ASTHMA WORSE caffeine [From Cafergot] AdvReac Mild NA-NAUSEA Verified 03/19/24 14:25 ergotamine [From Cafergot] AdvReac Mild NA-NAUSEA Verified 03/19/24 14:25 pregabalin [From Lyrica] AdvReac Mild TOO Verified 03/19/24 14:25 SEDATED NSAIDS (Non-Steroidal AdvReac Unknown Verified 03/19/24 14:25 Anti-Inflamma allergy reaction Exam Data for Last 24 hours Vital signs and Labs for Last 24 Hours: Temp Pulse Resp BP Pulse Ox O2 Del Method O2 Flow Rate 97.7 F 67 18 122/61 99 Nasal Cannula 2 04/03/24 21:13 04/03/24 21:13 04/03/24 21:13 04/03/24 21:13 04/03/24 19:59 04/03/24 21:13 04/03/24 21:13 Laboratory Results - last 24 hr 04/03/24 17:32: Urine Color Yellow, Urine Appearance Cloudy, Urine pH 6.0, Ur Specific [place] 1.015, Urine Protein Negative, Urine Glucose (UA) 2+, Urine Ketones Negative, Urine Blood Trace-i, Urine Nitrate Negative, Urine Bilirubin Negative, Urine Urobilinogen 0.2, Ur Leukocyte Esterase 2+ A, Urine RBC Occasional, Urine WBC 10-20, Ur Squamous Epith Cells Occasional, Urine Bacteria Trace, Urine Yeast 4+ 04/03/24 18:00: WBC 6.4, RBC 3.00 L, Hgb 8.3 L, Hct 29.2 L, MCV 97.4, MCH 27.8, MCHC 28.6 L, RDW 21.9 H, Plt Count 164, MPV 8.6, Neut % (Auto) 86.9 H, Lymph % (Auto) 8.5 L, Pepin % (Auto) 4.0, Eos % (Auto) 0.2, Baso % (Auto) 0.5, Neut # (Auto) 5.6, Lymph # (Auto) 0.6 L, Pepin # (Auto) 0.3, Eos # (Auto) 0.0, Baso # (Auto) 0.0, Total Counted 100, Neutrophils % (Manual) 90 H, Lymphocytes % (Manual) 8 L, Monocytes % (Manual) 1 L, Basophils % (Manual) 1.0, Platelet Estimate Normal, Hypochromasia 2+, Ovalocytes 1+, Sodium 144, Potassium 5.5 H, Chloride 106, Carbon Dioxide 35 H, Anion Gap 8.5, BUN 44 H, Creatinine 1.90 H, Estimated Creat Clear 37, Estimated GFR 26 L, Est GFR ( Amer) 31 L, Glucose 154 H, Calcium 8.5, Total Bilirubin 0.8, AST 49 H, ALT 34, Alkaline Phosphatase 146 H, Troponin I 0.03, Total Protein 6.4, Albumin 3.7, Globulin 2.7, Albumin/Globulin Ratio 1.4 04/03/24 18:10: VBG pH 7.32, VBG pCO2 59.4 H, VBG pO2 44.9 H, VBG HCO3 29.8, VBG Total CO2 31.6 H, VBG O2 Saturation 73.7 H, VBG Base Excess 3.7 H, VBG Lactic Acid 2.2 H Temp Pulse Resp BP Pulse Ox O2 Del Method O2 Flow Rate 97.8 F 70 13 116/53 L 100 Room Air 2 09/27/23 20:22 09/27/23 22:01 09/27/23 22:01 09/27/23 22:01 09/27/23 22:01 09/27/23 22:01 09/27/23 20:22 Laboratory Results - last 24 hr 09/27/23 20:38: VBG pH 7.27 L, VBG pCO2 62.2 H, VBG pO2 113.6 H, VBG HCO3 27.9, VBG Total CO2 29.8 H, VBG O2 Saturation 97.8 H, VBG Base Excess 1.0 09/27/23 20:43: WBC 6.7, RBC 2.98 L, Hgb 8.6 L, Hct 27.8 L, MCV 93.1, MCH 28.9, MCHC 31.0 L, RDW 17.8 H, Plt Count 156, MPV 9.4, Neut % (Auto) 55.4, Lymph % (Auto) 30.6, Pepin % (Auto) 5.1, Eos % (Auto) 8.7, Baso % (Auto) 0.2, Neut # (Auto) 3.7, Lymph # (Auto) 2.0, Pepin # (Auto) 0.3, Eos # (Auto) 0.6 H, Baso # (Auto) 0.0, Sodium 140, Potassium 4.5, Chloride 104, Carbon Dioxide 32 H, Anion Gap 8.5, BUN 30 H, Creatinine 1.60 H, Estimated Creat Clear 42, Estimated GFR 31 L, Est GFR ( Amer) 38 L, Glucose 100, Calcium 8.0 L, Total Bilirubin 0.5, AST 26, ALT 16, Alkaline Phosphatase 86, Troponin I 0.02, Total Protein 6.3, Albumin 3.5, Globulin 2.8, Albumin/Globulin Ratio 1.3, Salicylates < 1.0 L, Acetaminophen < 10 L 09/27/23 21:33: Urine Color Yellow, Urine Appearance Slightly cloudy, Urine pH 6.0, Ur Specific [place] 1.020, Urine Protein Negative, Urine Glucose (UA) 3+, Urine Ketones Negative, Urine Blood Trace-l, Urine Nitrate Negative, Urine Bilirubin Negative, Urine Urobilinogen 0.2, Ur Leukocyte Esterase 1+ A, Urine RBC 5-10, Urine WBC 10-20, Ur Squamous Epith Cells 3-5, Urine Bacteria 1+, Urine Opiates Screen Negative, Urine Methadone Screen Negative, Ur Barbituates Screen Negative, Ur Phencyclidine Scrn Negative, Ur Amphetamines Screen Negative, U Benzodiazepines Scrn Positive H, Urine Cocaine Screen Negative, U Marijuana (THC) Screen Negative I & O for Last 24 hours: Intake & Output 03/31/24 04/01/24 04/02/24 04/03/24 23:59 23:59 23:59 23:59 Weight 95.254 kg Intake & Output 09/24/23 09/25/23 09/26/23 09/27/23 23:59 23:59 23:59 23:59 Weight 90.718 kg Constitutional Constitutional: morbidly obese, chronically ill appearing and obtunded *Routine HEENT Exam Head: Present normocephalic and atraumatic Eye: Present EOMI, PERRL and normal accommodation ENT: Present mucous membranes moist *Routine Neck Exam Neck: Present supple, full ROM and trachea midline *Routine Respiratory Exam Respiratory: Present normal respiratory effort and symmetric chest movement; Absent respiratory distress *Routine Cardiovascular Exam Cardiovascular: Present RRR, Normal S1, Normal S2 and tachycardia *Routine Abdominal Exam Abdominal: Present soft, normoactive bowel sounds, tenderness, guarding and obese *Routine Rectal Exam Rectal:: deferred *Routine Genitalia Exam Genitalia:: deferred *Routine Extremities Exam Extremities: Present full ROM and pulses intact; Absent cyanosis, clubbing or edema *Routine Skin Exam Skin: Present intact, dry and warm *Routine Neurological Exam Neurological: Present normal reflexes, altered mental status and moving all extremities; Absent alert Routine Psychiatric Exam Psychiatric: Present unable to assess H&P: Result Imaging and Cardiology EKG: Status: image reviewed by me, Preliminary report and final report CT scan - head: Status: image reviewed by me, Preliminary report and final report CT scan - abdomen: Status: image reviewed by me, Preliminary report and final report Assessment and Plan *Assessment and plan (1) Acute encephalopathy: Status: Acute Category: Medical Code(s): G93.40 - Encephalopathy, unspecified (2) Acute UTI: Status: Acute Category: Medical Code(s): N39.0 - Urinary tract infection, site not specified (3) Candidal intertrigo: Status: Acute Category: Medical Code(s): B37.2 - Candidiasis of skin and nail (4) CKD (chronic kidney disease): Status: Acute Qualifiers: Chronic kidney disease stage: stage 4 (severe) Qualified Code(s): N18.4 - Chronic kidney disease, stage 4 (severe) Category: Medical Code(s): N18.9 - Chronic kidney disease, unspecified (5) Diabetes: Status: Chronic Qualifiers: Diabetes mellitus complication status: with other specified complication Diabetes mellitus correction insulin use: 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 Diabetes mellitus type: type 2 Qualified Code(s): E11.69 - Type 2 diabetes mellitus with other specified complication; Z79.4 - [facility] (current) use of insulin Category: Medical Code(s): E11.9 - Type 2 diabetes mellitus without complications (6) Hypertension: Status: Acute Qualifiers: Hypertension type: primary hypertension Qualified Code(s): I10 - Essential (primary) hypertension Category: Medical Code(s): I10 - Essential (primary) hypertension (7) Hospice care patient: Status: Acute Category: Medical Code(s): Z51.5 - Encounter for palliative care Plan 78-year-old female with multiples co-morbidities that recent signed for Hospice care at home that was brought in by EMS with altered mental status and concern for urinary tract infection, and abdominal discomfort. patient arrived on altered mental status. Housband appear not being able to care for herself at home. Initial labs was obtained. CT of the head and abdomen. Radiology called concercened for possible pneumatosis. anasarca. Chemistry showed CKD, UA concer nded for infection. extensive adam intertrigo likely responsible for the UTI. Family does not want to pursue any aggressive intervention. therefore surgeon was no consulted. However, is not able to provide care at home. Discussed with ED for inpatient management. Plan: -Acute encephalopathy: Likely secondary to urinary tract infection Extensive Candidal intertrigo: Admit patient for inpatient management Patient started on IV Rocephin every 24 [place] placed at the ER UA culture pending Apply nystatin powder twice daily for affect area Provide diet as tolerated Monitor vital signs. Supportive care Patient with others chronic conditions including diabetes, hypertension, chronic kidney disease, congestive heart failure, anemia of the chronic disease. Unclear what condition guarded for hospice. career manager consult to assist with discharge planning. Patient currently is stable. May not qualify for inpatient hospice and will need placement. DNR/DNI On Eliquis Rounded on patient after nurse practitioner. Personally examined and interviewed patient. Agree with exam findings and care plan as documented.
--- NOTE | 2024-04-03 21:30 | PC.NURSE ---
pt arrived to the floor via stretcher @19:28
[2024-04-03 21:47] LABS: Troponin I 0.03 ng/ml (0.00-0.034)
[2024-04-03 22:19] LABS: Reflex Lactic Add Lactic Reflex
--- NOTE | 2024-04-03 22:50 | PC.NURSE ---
Pt arrived to floor via stretcher w/ daughters at bedside. 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 Pt appears pale and is hard to awaken at this time. Lung sounds diminished. 2+ pitting edema to BLE. Pt has a DTI to coccyx and is very red/excoriated in abdominal folds and natan area with foul odor. (see wound note) arrives to bedside. states pt has been worsening over the past month but her PCP has been out of office so he was not able to take her for dr visit. states pt is bedridden and completely dependent for daily care. states pt has been refusing to turn from side to side for him at home. Pt states he was unaware of pts present skin conditions. Pt was given a bath. Pt more awake at this time, spontaneous eye opening and answers yes/no questions. Call light within reach.
[2024-04-03 23:09] LABS: Lactic Acid Follow Up (RFLX 1) 1.8 mmol/L (0.7-2.1)
[2024-04-04] VITALS: BP 124/71; PULSE 72; RESP 20; TEMP 36.6; O2SAT 99
[2024-04-04 00:46] LABS: Troponin I 0.04 ng/ml (0.00-0.034)
[2024-04-04] MEDS: ONDANSETRON 4MG/2ML VIAL 4 MG IV ×2 (02:05→12:27)
[2024-04-04] MEDS: GABAPENTIN 600MG TABLET 600 MG PO ×3 (02:42→20:39)
[2024-04-04] MEDS: ALPRAZolam 0.5MG TABLET 0.5 MG PO ×2 (02:43→14:12)
[2024-04-04] MEDS: FAMOTIDINE 20MG TABLET 20 MG PO ×3 (02:43→20:39)
[2024-04-04] MEDS: ATORVASTATIN 40MG TABLET 40 MG PO ×2 (02:43→20:39)
[2024-04-04] MEDS: APIXABAN 5MG TABLET 5 MG PO ×3 (02:44→20:39)
[2024-04-04] MEDS: OXYCODONE 5MG IMMEDIATE RELEASE TABLET 10 MG PO (02:44)
[2024-04-04] MEDS: PANTOPRAZOLE 40MG TABLET 40 MG PO ×3 (02:45→20:39)
[2024-04-04] MEDS: INSULIN GLARGINE 100 UNITS/ML 10ML VIAL 35 UNIT SQ (03:01)
[2024-04-04 03:12] LABS: POC Glucose,Bedside 118 (70-110)
[2024-04-04 04:00] VITALS: BMI 31.8
--- NOTE | 2024-04-04 04:38 | PC.WOUNDNOTE ---
DTI to buttocks
[2024-04-04 06:36] VITALS: BP 120/70; PULSE 70; RESP 18; O2SAT 99
--- NOTE | 2024-04-04 07:58 | HMH.PHAINT1 ---
Pharmacy Intervention Comments: home medication list verified using list from outpatient pharmacy
[2024-04-04 08:00] VITALS: BP 136/72; PULSE 70; RESP 16; TEMP 37.2; O2SAT 98
--- OUTSIDE RECORDS SUMMARY | 2024-04-04 09:39 | XMS_ITS ---
Author Name Unknown Organization Unknown ALLERGIES AND ADVERSE REACTIONS No information ASSESSMENT No information CHIEF COMPLAINT No information MEDICATIONS No information OBJECTIVE DATA No information PHYSICAL EXAMINATION No information TREATMENT PLAN Planned Care Start Date Provider Encounter for Check-up [phone] [facility] PROBLEMS No information RESULTS No information REVIEW OF SYSTEMS No information SUBJECTIVE DATA No information VITAL SIGNS No information
[2024-04-04] MEDS: FUROSEMIDE 80 MG TABLET PO (10:02)
[2024-04-04] MEDS: BISOPROLOL 5MG TABLET 10 MG PO (10:03)
[2024-04-04] MEDS: CITALOPRAM 10MG TABLET 10 MG PO (10:04)
[2024-04-04] MEDS: POLYETHYLENE GLYCOL 3350 17 GM PACKET PO ×2 (10:05→20:40)
[2024-04-04] MEDS: NYSTATIN CREAM 30GM/TUBE TP ×4 (10:06→20:51)
[2024-04-04 10:17] LABS: Thyroid Stimulating Hormone 3.61 uIU/mL (0.465-4.68)
[2024-04-04 10:23] LABS: Basophils % 0.3 % (0.1-2.0); Chloride 108 mmol/L (98-107); Eosinophils % 0.5 % (0.1-12.0); Hematocrit 28.6 % (37.0-47.0); Lymphocytes # 1.1 K/mm3 (0.7-4.5); Lymphocytes % 16.9 % (10-50); Mean Corpuscular Hemoglobin 27.1 pg (27.0-31.2); Mean Corpuscular Volume 96.7 fl (81-99); Mean Platelet Volume 9.1 fl (7.4-10.4); Monocytes # 0.4 K/mm3 (0.1-1.0); Monocytes % 6.2 % (1.7-9.3); Neutrophils # 4.7 K/mm3 (1.8-7.8); Neutrophils % 76.2 % (37.0-80.0); Platelet Count 167 K/mm3 (142-424); Potassium 4.6 mmoL/L (3.5-5.1); Red Blood Count 2.96 M/mm3 (4.20-5.40); Red Cell Distribution Width 22.3 % (11.5-17.5); Sodium 146 mmol/L (136-145); White Blood Count 6.2 K/mm3 (4.8-10.8)
[2024-04-04 10:25] LABS: Blood Urea Nitrogen 42 mg/dl (7-17); Creatinine Clearance Estimated 44 mL/min (50-200); Estimated Glomerular Filt Rate 31 ml/min (>60); GFR (African American) 38 ML/MIN (>60)
[2024-04-04 10:26] LABS: Alanine Aminotransferase 31 U/L (12-78); Albumin Level 3.3 g/dl (3.5-5.0); Albumin/Globulin Ratio 1.2 (1.1-1.8); Alkaline Phosphatase 121 U/L (38-126); Anion Gap 7.6 mEq/L (5-15); Aspartate Amino Transferase 43 U/L (14-36); Bilirubin,Total 0.7 mg/dl (0.2-1.3); Calcium 8.3 mg/dl (8.4-10.2); Carbon Dioxide 35 mmol/L (22.0-30.0); Globulin 2.7 g/dL (1.3-3.2); Glucose 96 mg/dl (74-100)
--- NOTE | 2024-04-04 11:18 | SW/DCPLANNER ---
Addendum entered by Arianne Prescott 04/05/24 09:11: I have updated Tri and Myranda balderas/ CORBIN that the plan is for patient to return home today. Addendum entered by Arianne Prescott 04/04/24 13:10: The plan for this patient is to return home today w/ Hospice services. is agreeable to this plan. I have updated Myranda balderas/ Bossman and Dr Oconnell. Original Note: Patient is currently established w/ [facility]. Per Tri balderas/ CORBIN this is a related hospital admission. CORBIN Furnace Converter will be on site this AM to speak w/ patient and regarding discharge plans. Patient's is NOT interested in LTC placement at this time. I will follow up w/ ELIANN Furnace Converter once she speaks w/ patient and family. Per patient could possibly return back home today and resume Hospice services.
[2024-04-04 11:51] LABS: POC Glucose,Bedside 111 (70-110)
--- NOTE | 2024-04-04 14:51 | HMH.PTWOUND ---
Rehab Inpt Wound Evaluation Rehab IP Wound Evaluation Start: 04/04/24 12:11 Freq: ONCE Status: Active Protocol: Document 04/04/24 14:48 ANTONIA (Rec: 04/04/24 14:51 PHOBOOKER [id number]) Rehab PT Wound Assessment Subjective Subjective 78 yowf adm to [facility] with UTI. She presents with skin irritation in multiple abdominal folds which is most likely yeast related. Nsg staff is currently applying appropriate prescribed medication and no further PT wound care is necessary at this time. Thank you for involving the wound care team in the care of this patient. PHYSICIAN CERTIFICATION: I certify the specified therapy services for Enedina Leon are required, authorized, and reviewed every 30 days.
[2024-04-04 16:00] VITALS: BP 119/54; PULSE 70; RESP 18; TEMP 36.6; O2SAT 99
[2024-04-04 16:31] LABS: POC Glucose,Bedside 82 (70-110)
--- NOTE | 2024-04-04 18:15 | EXP.ACUTE.PN ---
Subjective *Date: 04/04/24 *Time: 18:15 Interval history: Patient stable on her 2 L baseline oxygen. Complaining of some mild diffuse pain. More alert. Oriented to self and place. Extensive goals of care discussion today with , hospice, patient. Plan to discharge home with hospice when stable. Patient denies any nausea or vomiting. No chest pain. No shortness of breath. 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 States she tired of hurting all the time and feels miserable all the time. Afebrile. Medical Exam Vital signs and Labs for Last 24 Hours: Vital Signs Temp Pulse Pulse Resp BP BP Pulse Ox 04/04/24 16:00 97.8 F 70 18 119/54 L 99 04/04/24 15:00 04/04/24 13:00 04/04/24 11:00 04/04/24 09:00 04/04/24 08:00 04/04/24 08:00 98.9 F 70 16 136/72 98 04/04/24 06:36 70 18 120/70 99 04/04/24 06:35 04/04/24 05:00 04/04/24 03:00 04/04/24 01:00 04/04/24 00:15 04/04/24 00:00 98 F 72 20 124/71 99 04/03/24 23:00 04/03/24 21:13 97.7 F 67 18 122/61 04/03/24 19:59 75 120/57 L 99 04/03/24 19:31 75 111/51 L 100 04/03/24 19:01 70 124/63 100 O2 Del Method O2 Flow Rate 04/04/24 16:00 Room Air 04/04/24 15:00 Nasal Cannula 2 04/04/24 13:00 Nasal Cannula 2 04/04/24 11:00 Nasal Cannula 2 04/04/24 09:00 Nasal Cannula 2 04/04/24 08:00 Nasal Cannula 2 04/04/24 08:00 Room Air 04/04/24 06:36 Nasal Cannula 2 04/04/24 06:35 Nasal Cannula 2 04/04/24 05:00 Nasal Cannula 2 04/04/24 03:00 Nasal Cannula 2 04/04/24 01:00 Nasal Cannula 2 04/04/24 00:15 Nasal Cannula 2 04/04/24 00:00 Nasal Cannula 2 04/03/24 23:00 Nasal Cannula 2 04/03/24 21:13 Nasal Cannula 2 04/03/24 19:59 Room Air 04/03/24 19:31 Room Air 04/03/24 19:01 Intake and Output 04/04/24 04/04/24 04/04/24 07:59 15:59 23:59 Intake Total 500 / 670 170 / 670 Output Total 600 / 600 Balance 500 / 70 -430 / 70 Intake: Intake, Oral Amount 170 / 170 Intake, Total IV Amount 500 / 500 Lactated Ringers 1000ML 1,000 500 / 500 ml @ 999 mls/hr IV .Q1H1M [facility] Rx#:[id number] Output: Output, Urine Amount 600 / 600 Other: Number of Unmeasured Voids 0 Weight 95.25 kg Patient Weight 04/04/24 23:59 Weight 95.25 kg Laboratory Results - last 24 hr 04/03/24 17:32: Urine Color Yellow, Urine Appearance Cloudy, Urine pH 6.0, Ur Specific [place]cock 1.015, Urine Protein Negative, Urine Glucose (UA) 2+, Urine Ketones Negative, Urine Blood Trace-i, Urine Nitrate Negative, Urine Bilirubin Negative, Urine Urobilinogen 0.2, Ur Leukocyte Esterase 2+ A, Urine RBC Occasional, Urine WBC 10-20, Ur Squamous Epith Cells Occasional, Urine Bacteria Trace, Urine Yeast 4+ 04/03/24 18:00: WBC 6.4, RBC 3.00 L, Hgb 8.3 L, Hct 29.2 L, MCV 97.4, MCH 27.8, MCHC 28.6 L, RDW 21.9 H, Plt Count 164, MPV 8.6, Neut % (Auto) 86.9 H, Lymph % (Auto) 8.5 L, [place] % (Auto) 4.0, Eos % (Auto) 0.2, Baso % (Auto) 0.5, Neut # (Auto) 5.6, Lymph # (Auto) 0.6 L, [place] # (Auto) 0.3, Eos # (Auto) 0.0, Baso # (Auto) 0.0, Total Counted 100, Neutrophils % (Manual) 90 H, Lymphocytes % (Manual) 8 L, Monocytes % (Manual) 1 L, Basophils % (Manual) 1.0, Platelet Estimate Normal, Hypochromasia 2+, Ovalocytes 1+, Sodium 144, Potassium 5.5 H, Chloride 106, Carbon Dioxide 35 H, Anion Gap 8.5, BUN 44 H, Creatinine 1.90 H, Estimated Creat Clear 37, Estimated GFR 26 L, Est GFR ( Amer) 31 L, Glucose 154 H, Calcium 8.5, Total Bilirubin 0.8, AST 49 H, ALT 34, Alkaline Phosphatase 146 H, Troponin I 0.03, Total Protein 6.4, Albumin 3.7, Globulin 2.7, Albumin/Globulin Ratio 1.4, TSH 3.61 04/03/24 18:10: VBG pH 7.32, VBG pCO2 59.4 H, VBG pO2 44.9 H, VBG HCO3 29.8, VBG Total CO2 31.6 H, VBG O2 Saturation 73.7 H, VBG Base Excess 3.7 H, VBG Lactic Acid 2.2 H 04/03/24 21:20: Troponin I 0.03 04/03/24 22:49: Lactate 1.8 04/04/24 00:15: Troponin I 0.04 H 04/04/24 02:58: POC Glucose 118 H 04/04/24 09:50: WBC 6.2, RBC 2.96 L, Hgb 8.0 L, Hct 28.6 L, MCV 96.7, MCH 27.1, MCHC 28.0 L, RDW 22.3 H, Plt Count 167, MPV 9.1, Neut % (Auto) 76.2, Lymph % (Auto) 16.9, [place] % (Auto) 6.2, Eos % (Auto) 0.5, Baso % (Auto) 0.3, Neut # (Auto) 4.7, Lymph # (Auto) 1.1, [place] # (Auto) 0.4, Eos # (Auto) 0.0, Baso # (Auto) 0.0, Sodium 146 H, Potassium 4.6, Chloride 108 H, Carbon Dioxide 35 H, Anion Gap 7.6, BUN 42 H, Creatinine 1.60 H, Estimated Creat Clear 44, Estimated GFR 31 L, Est GFR ( Amer) 38 L D, Glucose 96 D, Calcium 8.3 L, Total Bilirubin 0.7, AST 43 H, ALT 31, Alkaline Phosphatase 121, Total Protein 6.0 L, Albumin 3.3 L D, Globulin 2.7, Albumin/Globulin Ratio 1.2 04/04/24 11:45: POC Glucose 111 H 04/04/24 16:20: POC Glucose 82 I & O for Labs for Last 24 Hours: Intake & Output 04/01/24 04/02/24 04/03/24 04/04/24 23:59 23:59 23:59 23:59 Intake Total 670 / 670 Output Total 600 / 600 Balance 70 / 70 Weight 95.254 kg 95.25 kg Microbiology Reports for the Last 24 Hours: Microbiology 04/03/24 18:00 Blood Blood Culture - Preliminary NO GROWTH AFTER 24 HOURS 04/03/24 17:50 Blood Blood Culture - Preliminary NO GROWTH AFTER 24 HOURS Constitutional: Present no acute distress, obese, chronically ill appearing and cooperative Head: Present normocephalic ENT: Present normal exam Neck: Present normal inspection Respiratory: Present prolonged expiratory phase and diminished air movement; Absent respiratory distress, wheezes or crackles Cardiac: Present Reg Rate and Rhythm, S1/S2 and No Murmur GI: Present soft and normal bowel sounds Extremities: Present normal capillary refill and edema (trace) Comment:: trace Skin: Present intact, dry and rash Comment:: Erythematous rash in skin folds under breasts and fold of abdomen consistent with yeast/intertrigo Neuro: Present alert, awake and moves all extremities Comment:: decreased sensation in feet; oriented to self and place. Improving mentation. Assessment and Plan *Assessment and plan (1) Acute encephalopathy: Status: Acute Category: Medical Code(s): G93.40 - Encephalopathy, unspecified (2) Acute UTI: Status: Acute Category: Medical Code(s): N39.0 - Urinary tract infection, site not specified (3) Candidal intertrigo: Status: Acute Category: Medical Code(s): B37.2 - Candidiasis of skin and nail (4) CKD (chronic kidney disease): Status: Acute Qualifiers: Chronic kidney disease stage: stage 4 (severe) Qualified Code(s): N18.4 - Chronic kidney disease, stage 4 (severe) Category: Medical Code(s): N18.9 - Chronic kidney disease, unspecified (5) Diabetes: Status: Chronic Qualifiers: Diabetes mellitus type: type 2 Diabetes mellitus retirement insulin use: with manager intermediate use Diabetes mellitus complication status: with other specified complication Qualified Code(s): E11.69 - Type 2 diabetes mellitus with other specified complication; Z79.4 - intermediate accountant (current) use of insulin Category: Medical Code(s): E11.9 - Type 2 diabetes mellitus without complications (6) Hypertension: Status: Acute Qualifiers: Hypertension type: primary hypertension Qualified Code(s): I10 - Essential (primary) hypertension Category: Medical Code(s): I10 - Essential (primary) hypertension (7) Hospice care patient: Status: Acute Category: Medical Code(s): Z51.5 - Encounter for palliative care (8) Polypharmacy: Status: Chronic Category: Medical Code(s): Z79.899 - Other retirement (current) drug therapy (9) Chronic narcotic use: Status: Chronic Category: Social Hx Code(s): F11.90 - Opioid use, unspecified, uncomplicated (10) Lumbosacral radiculopathy due to degenerative joint disease of spine: Status: Chronic Category: Medical Code(s): M47.27 - Other spondylosis with radiculopathy, lumbosacral region (11) Chronic hypoxemic respiratory failure: Status: Chronic Category: Medical Code(s): J96.11 - Chronic respiratory failure with hypoxia Plan 78-year-old female with multiples co-morbidities that recent signed for Hospice care at home that was brought in by EMS with altered mental status and concern for urinary tract infection, and abdominal discomfort. patient arrived on altered mental status. Housband appear not being able to care for herself at home. Initial labs was obtained. CT of the head and abdomen. Radiology called concercened for possible pneumatosis. anasarca. Chemistry showed CKD, UA concerning for infection. Has extensive intertrigo on her abdomen. Extensive discussion with family, want to pursue keeping her comfortable and addressing her pain. Would like to continue to treat UTI given her improving mentation with antibiotics. Also have held her fentanyl patch. Family understands that the pain medications may cause confusion and somnolence. She states understanding as well and just does not want to hurt. Will continue 1 more day of antibiotics inpatient to treat her UTI and then transition to p.o. antibiotics to complete empiric course for UTI. Plan to transition back home with hospice tomorrow. Problems addressed as follows: -Acute encephalopathy: Likely secondary to urinary tract infection Extensive Candidal intertrigo: Urine culture pending, will continue IV Rocephin every 24 hours 1 g. Plan to transition to oral cefdinir at discharge based on previous cultures unless current culture shows alternative pathogen and sensitivity. Pure wick in place Nystatin powder on skin folds for intertrigo Supplemental oxygen as needed, currently on 2 L which is her baseline. Sats above 90%. -Discussed case with hospice, will continue inpatient treatment for now and then transition home tomorrow. Continue treatment for UTI as above. - White cell count normal at 6.2. Kidney function at baseline with creatinine of 1.6, BUN 42. Given goals of care, will order labs for the morning. Polypharmacy Chronic benzodiazepine and opiate use -Component of sedation related to her medications. Has improved with antibiotics for UTI above but is also improved with removal of fentanyl patch. Continue oxycodone 10 mg every 6 hours. Hold on fentanyl patch. Continue gabapentin 4 times a day. Continue Ativan per home regimen. Monitoring mentation closely. In light of goals of care, patient's progressing debility and chronic pain, patient understands potential side effects of her medications with goal of improving her pain and suffering. Patient to transition home with hospice and will resume pain regimen at that time. DNR/DNI On Eliquis Diabetic diet
[2024-04-04] MEDS: CEFTRIAXONE 1 GM 1 GM in 0.9 % SODIUM CHLORIDE 50 ML IV (18:27)
[2024-04-04 20:00] VITALS: BP 119/65; PULSE 76; RESP 16; TEMP 36.2; O2SAT 99
[2024-04-04 20:39] LABS: POC Glucose,Bedside 97 (70-110)
[2024-04-05] MEDS: ONDANSETRON 4MG/2ML VIAL 4 MG IV ×2 (01:46→09:04)
[2024-04-05 04:00] VITALS: BP 121/66; PULSE 70; RESP 16; TEMP 37.2; O2SAT 98; BMI 37.1
--- NOTE | 2024-04-05 05:06 | PC.NURSE ---
PATIENT FINALLY WOKE UP AROUND 3 AM. 02 AT 1.5L PER NASAL CANNULA. 02 SATS 99%. PUREWICK IN PLACE. UOP ADEQUATE AND CLEAR YELLOW. SPOUSE AT BEDSIDE.
[2024-04-05 05:26] LABS: POC Glucose,Bedside 99 (70-110)
[2024-04-05 06:20] LABS: Chloride 106 mmol/L (98-107); Eosinophils # 0.3 K/mm3 (0.0-0.4); Eosinophils % 4.2 % (0.1-12.0); Hematocrit 26.9 % (37.0-47.0); Hemoglobin 7.8 g/dL (12.2-16.2); Lymphocytes # 1.1 K/mm3 (0.7-4.5); Lymphocytes % 17.5 % (10-50); Mean Corpuscular Hemoglobin 27.5 pg (27.0-31.2); Mean Corpuscular Volume 94.7 fl (81-99); Monocytes # 0.4 K/mm3 (0.1-1.0); Monocytes % 6.2 % (1.7-9.3); Neutrophils # 4.4 K/mm3 (1.8-7.8); Neutrophils % 72.2 % (37.0-80.0); Platelet Count 168 K/mm3 (142-424); Potassium 3.7 mmoL/L (3.5-5.1); Red Blood Count 2.84 M/mm3 (4.20-5.40); Red Cell Distribution Width 22.1 % (11.5-17.5); Sodium 144 mmol/L (136-145); White Blood Count 6.1 K/mm3 (4.8-10.8)
[2024-04-05 06:22] LABS: Alanine Aminotransferase 24 U/L (12-78); Aspartate Amino Transferase 37 U/L (14-36); Blood Urea Nitrogen 40 mg/dl (7-17); Creatinine Clearance Estimated 55 mL/min (50-200); Estimated Glomerular Filt Rate 34 ml/min (>60); GFR (African American) 41 ML/MIN (>60)
[2024-04-05 06:23] LABS: Albumin Level 3.1 g/dl (3.5-5.0); Albumin/Globulin Ratio 1.3 (1.1-1.8); Alkaline Phosphatase 112 U/L (38-126); Anion Gap 4.7 mEq/L (5-15); Bilirubin,Total 0.7 mg/dl (0.2-1.3); Calcium 8.2 mg/dl (8.4-10.2); Carbon Dioxide 37 mmol/L (22.0-30.0); Globulin 2.4 g/dL (1.3-3.2); Glucose 101 mg/dl (74-100); Magnesium 2.4 mg/dl (1.6-2.3); Total Protein,Serum 5.5 g/dl (6.3-8.2)
--- NOTE | 2024-04-05 06:59 | P.DS_ITS ---
General Admission date:: 04/03/24 Discharge date: 04/05/24 HPI HPI HPI: This is a 78-year-old female with multiples co-morbidities that recent signed for Hospice care at home that was brought in by EMS with altered mental status and concern for urinary tract infection, and abdominal discomfort. She is accompanied by her son and her at the bedside. states that she has significant decline over the last several years after having a stroke they have increasing difficulty caring for her at home over the last several days she is gotten progressively worse with hallucinations that are visual very foul- smelling urine and complaints of pain. She is on oxycodone and fentanyl which were administered today even in the setting of significant encephalopathy. No fevers or cough. She does have a history of aspiration several years ago but has not aspirated clinically from historical standpoint according to her . The patient is altered and her history is limited but she also complains of abdominal pain. Admitted for further management. Hospital Course Hospital Course Hospital Course: 78-year-old female with multiples co-morbidities that recent signed for Hospice care at home that was brought in by EMS with altered mental status and concern for urinary tract infection, and abdominal discomfort. patient arrived on altered mental status. states he is not to provide all of the Enedina's needs at home at this time. Initial labs was obtained. CT of the head and abdomen. Radiology called concercened for possible pneumatosis. anasarca. Chemistry showed CKD, UA concerning for infection. Has extensive intertrigo on her abdomen. Extensive discussion with family, want to pursue keeping her comfortable and addressing her pain. Would like to continue to treat UTI given her improving mentation with antibiotics. Also have held her fentanyl patch. Family understands that the pain medications may cause confusion and somnolence. She states understanding as well and just does not want to hurt. To IV antibiotics for 1 more day. Showing improvement. Will transition oral antibiotics. Patient evaluated by hospice, family comfortable taking patient home with the assistance of hospice and her daughters helping care for her. Hospice to resume care upon arrival at home. Stable to discharge. Problems addressed as follows: Acute encephalopathy: Improved Urinary tract infection Extensive Candidal intertrigo: Patient presented with confusion. Multiple risk factors including polypharmacy and UTI. Was initiated on Rocephin IV daily. Blood cultures and urine cultures obtained. Urine culture still pending at discharge but blood cultures negative at 48 hours. Given her improvement in mentation with holding/decreasing her pain regimen and treating urinary tract infection, will transition to oral antibiotics and discharge home with the assistance of family and hospice. Complete 5 more days of antibiotics with cefdinir twice daily. Continue nystatin topical cream for rash in skin folds. Given patient's stability on baseline oxygen, resuming hospice care, stable to discharge at this time. White cell count remains normal at 6.1. Kidney function at baseline BUN 40, creatinine 1.5. Patient alert and oriented x 2, improved from presentation. Continues to require 2 L oxygen which is her baseline. Polypharmacy Chronic benzodiazepine and opiate use Chronic pain -Component of sedation related to her medications. Has improved with antibiotics for UTI above but is also improved with removal of fentanyl patch. Continue oxycodone 10 mg every 6 hours. Hold on fentanyl patch. Continue gabapentin 4 times a day. Continue Ativan per home regimen. Monitoring mentation closely. In light of goals of care, patient's progressing debility and chronic pain, patient understands potential side effects of her medications with goal of improving her pain and suffering. Patient to transition home with hospice and will resume pain regimen at that time. Resume home regimen upon arrival. Transition care to hospice. Reviewed home medications. Recommend discontinuing Lipitor given her goals of care. This medication provides long-term benefit. Do not see need to continue this medication at this time in light of transitioning to hospice care. Total time spent on discharge 35 minutes in counseling, documentation, chart review, and direct care with patient. Exam Data for Last 24 hours Vital signs and Labs for Last 24 Hours: Temp Pulse Resp BP Pulse Ox O2 Del Method O2 Flow Rate 99.0 F 70 16 121/66 98 Room Air 1.5 04/05/24 04:00 04/05/24 04:00 04/05/24 04:00 04/05/24 04:00 04/05/24 04:00 04/05/24 06:38 04/05/24 04:55 Laboratory Results - last 24 hr 04/03/24 18:00: TSH 3.61 04/04/24 09:50: WBC 6.2, RBC 2.96 L, Hgb 8.0 L, Hct 28.6 L, MCV 96.7, MCH 27.1, MCHC 28.0 L, RDW 22.3 H, Plt Count 167, MPV 9.1, Neut % (Auto) 76.2, Lymph % (Auto) 16.9, Guthrie % (Auto) 6.2, Eos % (Auto) 0.5, Baso % (Auto) 0.3, Neut # (Auto) 4.7, Lymph # (Auto) 1.1, Guthrie # (Auto) 0.4, Eos # (Auto) 0.0, Baso # (Auto) 0.0, Sodium 146 H, Potassium 4.6, Chloride 108 H, Carbon Dioxide 35 H, Anion Gap 7.6, BUN 42 H, Creatinine 1.60 H, Estimated Creat Clear 44, Estimated GFR 31 L, Est GFR ( Amer) 38 L D, Glucose 96 D, Calcium 8.3 L, Total Bilirubin 0.7, AST 43 H, ALT 31, Alkaline Phosphatase 121, Total Protein 6.0 L, Albumin 3.3 L D, Globulin 2.7, Albumin/Globulin Ratio 1.2 04/04/24 11:45: POC Glucose 111 H 04/04/24 16:20: POC Glucose 82 04/04/24 20:28: POC Glucose 97 04/05/24 05:17: POC Glucose 99 04/05/24 05:46: WBC 6.1, RBC 2.84 L, Hgb 7.8 L, Hct 26.9 L, MCV 94.7, MCH 27.5, MCHC 29.0 L, RDW 22.1 H, Plt Count 168, MPV 9.0, Neut % (Auto) 72.2, Lymph % (Auto) 17.5, Guthrie % (Auto) 6.2, Eos % (Auto) 4.2, Baso % (Auto) 0.0 L, Neut # (Auto) 4.4, Lymph # (Auto) 1.1, Guthrie # (Auto) 0.4, Eos # (Auto) 0.3, Baso # (Auto) 0.0, Sodium 144, Potassium 3.7, Chloride 106, Carbon Dioxide 37 H, Anion Gap 4.7 L, BUN 40 H, Creatinine 1.50 H, Estimated Creat Clear 55, Estimated GFR 34 L, Est GFR ( Amer) 41 L, Glucose 101 H, Calcium 8.2 L, Magnesium 2.4 H , Total Bilirubin 0.7, AST 37 H, ALT 24, Alkaline Phosphatase 112, Total Protein 5.5 L, Albumin 3.1 L, Globulin 2.4, Albumin/Globulin Ratio 1.3 I & O for Last 24 hours: Intake & Output 04/02/24 04/03/24 04/04/24 04/05/24 23:59 23:59 23:59 23:59 Intake Total 670 / 910 240 / 240 Output Total 1600 / 1600 850 / 850 Balance -930 / -690 -610 / -610 Weight 95.254 kg 95.25 kg 111.13 kg Microbiology Reports for the Last 24 Hours: Microbiology 04/03/24 18:00 Blood Blood Culture - Preliminary NO GROWTH AFTER 24 HOURS 04/03/24 17:50 Blood Blood Culture - Preliminary NO GROWTH AFTER 24 HOURS Constitutional Constitutional: no acute distress, obese and chronically ill appearing *Routine HEENT Exam Head: Present normocephalic Eye: Present EOMI and PERRL ENT: Present mucous membranes moist Comments: NC in place *Routine Neck Exam Neck: Present supple; Absent lymphadenopathy *Routine Respiratory Exam Respiratory: Present diminished air movement and normal respiratory effort; Absent rhonchi, wheezes or crackles *Routine Cardiovascular Exam Cardiovascular: Present RRR *Routine Abdominal Exam Abdominal: Present soft and normoactive bowel sounds; Absent tenderness *Routine Rectal Exam Patient deferred: visual exam *Routine Exam Patient deferred: external exam *Routine Extremities Exam Extremities: Present edema (trace BLE); Absent cyanosis or clubbing *Routine Skin Exam Skin: Present warm and rash Comments: Significant intertrigo under breasts and fold of abdomen. *Routine Neurological Exam Neurological: Present alert, oriented X3 and normal speech; Absent altered mental status Routine Psychiatric Exam Psychiatric: Present normal thought process and anxious Results Data Completed and Pending Labs on day of discharge: Labs from last 24 hours 04/05/24 04/05/24 04/04/24 05:46 05:17 20:28 WBC 6.1 RBC 2.84 L Hgb 7.8 L Hct 26.9 L MCV 94.7 MCH 27.5 MCHC 29.0 L RDW 22.1 H Plt Count 168 MPV 9.0 Neut % (Auto) 72.2 Lymph % (Auto) 17.5 Guthrie % (Auto) 6.2 Eos % (Auto) 4.2 Baso % (Auto) 0.0 L Neut # (Auto) 4.4 Lymph # (Auto) 1.1 Guthrie # (Auto) 0.4 Eos # (Auto) 0.3 Baso # (Auto) 0.0 Sodium 144 Potassium 3.7 Chloride 106 Carbon Dioxide 37 H Anion Gap 4.7 L BUN 40 H Creatinine 1.50 H Estimated Creat Clear 55 Estimated GFR 34 L Est GFR ( Amer) 41 L Glucose 101 H POC Glucose 99 97 Calcium 8.2 L Magnesium 2.4 H Total Bilirubin 0.7 AST 37 H ALT 24 Alkaline Phosphatase 112 Total Protein 5.5 L Albumin 3.1 L Globulin 2.4 Albumin/Globulin Ratio 1.3 TSH 04/04/24 04/04/24 04/04/24 16:20 11:45 09:50 WBC 6.2 RBC 2.96 L Hgb 8.0 L Hct 28.6 L MCV 96.7 MCH 27.1 MCHC 28.0 L RDW 22.3 H Plt Count 167 MPV 9.1 Neut % (Auto) 76.2 Lymph % (Auto) 16.9 Guthrie % (Auto) 6.2 Eos % (Auto) 0.5 Baso % (Auto) 0.3 Neut # (Auto) 4.7 Lymph # (Auto) 1.1 Guthrie # (Auto) 0.4 Eos # (Auto) 0.0 Baso # (Auto) 0.0 Sodium 146 H Potassium 4.6 Chloride 108 H Carbon Dioxide 35 H Anion Gap 7.6 BUN 42 H Creatinine 1.60 H Estimated Creat Clear 44 Estimated GFR 31 L Est GFR ( Amer) 38 L D Glucose 96 D POC Glucose 82 111 H Calcium 8.3 L Magnesium Total Bilirubin 0.7 AST 43 H ALT 31 Alkaline Phosphatase 121 Total Protein 6.0 L Albumin 3.3 L D Globulin 2.7 Albumin/Globulin Ratio 1.2 TSH 04/03/24 18:00 WBC RBC Hgb Hct MCV MCH MCHC RDW Plt Count MPV Neut % (Auto) Lymph % (Auto) Guthrie % (Auto) Eos % (Auto) Baso % (Auto) Neut # (Auto) Lymph # (Auto) Guthrie # (Auto) Eos # (Auto) Baso # (Auto) Sodium Potassium Chloride Carbon Dioxide Anion Gap BUN Creatinine Estimated Creat Clear Estimated GFR Est GFR ( Amer) Glucose POC Glucose Calcium Magnesium Total Bilirubin AST ALT Alkaline Phosphatase Total Protein Albumin Globulin Albumin/Globulin Ratio TSH 3.61 Preliminary micro results at discharge 04/03/24 18:00 Blood Culture - Preliminary Blood NO GROWTH AFTER 24 HOURS 04/03/24 17:50 Blood Culture - Preliminary Blood NO GROWTH AFTER 24 HOURS DS: Diagnosis Discharge Diagnosis (1) Acute encephalopathy: Status: Acute Code(s): G93.40 - Encephalopathy, unspecified (2) Acute UTI: Status: Acute Code(s): N39.0 - Urinary tract infection, site not specified (3) Candidal intertrigo: Status: Acute Code(s): B37.2 - Candidiasis of skin and nail (4) CKD (chronic kidney disease): Status: Acute Code(s): N18.9 - Chronic kidney disease, unspecified Qualifiers: Chronic kidney disease stage: stage 4 (severe) Qualified Code(s): N18.4 - Chronic kidney disease, stage 4 (severe) (5) Diabetes: Status: Chronic Code(s): E11.9 - Type 2 diabetes mellitus without complications Qualifiers: Diabetes mellitus complication status: with other specified complication Diabetes mellitus watermaster insulin use: with nursing home use Diabetes mellitus type: type 2 Qualified Code(s): E11.69 - Type 2 diabetes mellitus with other specified complication; Z79.4 - care home (current) use of insulin (6) Hypertension: Status: Acute Code(s): I10 - Essential (primary) hypertension Qualifiers: Hypertension type: primary hypertension Qualified Code(s): I10 - Essential (primary) hypertension (7) Hospice care patient: Status: Acute Code(s): Z51.5 - Encounter for palliative care Meds Home Medications and Allergies Home Medications Medication Instructions Recorded Confirmed Type apixaban 5 mg tablet (Eliquis) 5 mg PO BID 09/27/23 04/03/24 History bisoprolol fumarate 10 mg tablet 10 mg PO DAILY 09/27/23 04/03/24 History empagliflozin 10 mg tablet 10 mg PO DAILY 09/27/23 04/04/24 History (Jardiance) famotidine 20 mg tablet 20 mg PO BID 09/27/23 04/03/24 History fentanyl 25 mcg/hr transdermal 25 mcg transdermal Q72H 09/27/23 04/03/24 History patch gabapentin 600 mg tablet 600 mg PO QID 09/27/23 04/03/24 History hydroxychloroquine 200 mg tablet 200 mg PO BID 09/27/23 04/03/24 History insulin aspart U-100 100 unit/mL 10 unit SQ DAILYP PRN Hyperglycemia 09/27/23 04/03/24 History (3 mL) subcutaneous pen (Novolog FlexPen U-100 Insulin aspart) insulin glargine 100 unit/mL 35 unit SQ HS 09/27/23 04/03/24 History subcutaneous solution (Lantus U-100 Insulin) pantoprazole 40 mg tablet,delayed 40 mg PO BID 09/27/23 04/03/24 History release acetaminophen 500 mg tablet 500 mg PO BIDP PRN Pain 09/28/23 04/03/24 History melatonin 3 mg tablet 3 mg PO HS 09/28/23 04/03/24 History polyethylene glycol 3350 17 gram 17 g PO BID PRN Constipation 09/28/23 04/03/24 History oral powder packet alprazolam 0.5 mg tablet 0.5 mg PO TID PRN Anxiety 03/19/24 04/04/24 History escitalopram oxalate 5 mg tablet 5 mg PO DAILY 04/03/24 04/03/24 History furosemide 80 mg tablet 80 mg PO MOWEFR 04/03/24 04/04/24 History oxycodone 10 mg tablet 10 mg PO QID PRN Moderate Pain 04/03/24 04/03/24 History (Scale Score 5-6) cefdinir 300 mg capsule 300 mg PO BID 5 days #10 caps 04/04/24 Rx nystatin 100,000 unit/gram topical 1 applic topical QID 10 days #60 04/05/24 Rx cream grams New Prescriptions to Start Prescriptions: cefdinShun Martini nystatin Shun Oconnell Allergies Allergy/AdvReac Type Severity Reaction Status Date / Time amitriptyline [From Elavil] Allergy Severe A-[id number]/THROAT; Verified 03/19/24 14:25 SEIZURES chlorpromazine Allergy Severe SEIZURES Verified 03/19/24 14:25 [From Thorazine] dichloralphenazone Allergy Severe S-SWELLS-OR Verified 03/19/24 14:25 [From Midrin] AL/THROAT isometheptene [From Midrin] Allergy Severe S-SWELLS-OR Verified 03/19/24 14:25 AL/THROAT prochlorperazine Allergy Severe SEIZURES Verified 03/19/24 14:25 [From Compazine] adhesive tape Allergy Intermediate I-RASH Verified 03/19/24 14:25 aspirin Allergy Intermediate COLD Verified 08/11/23 14:29 SWEATS , N/V cyclobenzaprine Allergy Unknown Unknown Verified 08/11/23 14:29 [From FLEXERIL] allergy reaction duloxetine [DULOXETINE] Allergy Unknown Unknown Verified 08/11/23 14:29 allergy reaction Iodinated Contrast Media Allergy Unknown Unknown Verified 08/11/23 14:29 [IODINATED CONTRAST MEDIA - allergy ORAL AND] reaction Sulfa (Sulfonamide Allergy Unknown CONTRAINDICATED Verified 03/19/24 14:25 Antibiotics) WITH ASTHMA trimethoprim [TRIMETHOPRIM] Allergy Unknown Unknown Verified 03/19/24 14:25 allergy reaction leflunomide Allergy rash, Verified 03/19/24 14:25 redness Macrolide Antibiotics Allergy rash, Verified 03/19/24 14:25 redness Beta-Blockers AdvReac Severe MAKES Verified 03/19/24 14:25 (Beta-Adrenergic Bloc ASTHMA WORSE caffeine [From Cafergot] AdvReac Mild NA-NAUSEA Verified 03/19/24 14:25 ergotamine [From Cafergot] AdvReac Mild NA-NAUSEA Verified 03/19/24 14:25 pregabalin [From Lyrica] AdvReac Mild TOO Verified 03/19/24 14:25 SEDATED NSAIDS (Non-Steroidal AdvReac Unknown Verified 03/19/24 14:25 Anti-Inflamma allergy reaction Discharge Plan Disposition Patient Disposition: Hospice - Home Condition: Fair Discharge Order Discharge Orders: Discharge Order (Routine); Ordered 04/05/24 Ordered By: Shun Oconnell Follow up Plan Follow up with: Geovany Medel MD [Primary Care Provider] - 04/11/24 1:30 pm Prescriptions/Medication Reconciliation: New cefdinir 300 mg capsule 300 mg PO BID 5 Days Qty: 10 0RF nystatin 100,000 unit/gram Cream 1 applic topical QID 10 Days Qty: 60 0RF Continued alprazolam 0.5 mg tablet 0.5 mg PO TID PRN (Reason: Anxiety) furosemide 80 mg tablet 80 mg PO MOWE Rx Instructions: once daily every tuesday, tuesday, and tuesday escitalopram oxalate 5 mg tablet 5 mg PO DAILY Rx Instructions: TAKE 1 TABLET BY MOUTH IN THE MORNING oxycodone 10 mg tablet 10 mg PO QID PRN (Reason: Moderate Pain (Scale Score 5-6)) gabapentin 600 mg tablet 600 mg PO QID insulin glargine [Lantus U-100 Insulin] 100 unit/mL solution 35 unit SQ HS bisoprolol fumarate 10 mg tablet 10 mg PO DAILY famotidine 20 mg tablet 20 mg PO BID pantoprazole 40 mg tablet,delayed release (DR/EC) 40 mg PO BID hydroxychloroquine 200 mg tablet 200 mg PO BID fentanyl 25 mcg/hr patch 72 hour 25 mcg transdermal Q72H insulin aspart U-100 [Novolog FlexPen U-100 Insulin] 100 unit/mL (3 mL) insulin pen 10 unit SQ DAILYP PRN (Reason: Hyperglycemia) Eliquis 5 mg tablet 5 mg PO BID Jardiance 10 mg tablet 10 mg PO DAILY polyethylene glycol 3350 17 gram Powder In Packet 17 g PO BID PRN (Reason: Constipation) melatonin 3 mg Tablet 3 mg PO HS acetaminophen 500 mg Tablet 500 mg PO BIDP PRN (Reason: Pain) Discontinued atorvastatin 40 mg tablet 40 mg PO HS Qty: 90 1RF Problem Reconciliation Problems Reviewed?: Yes Patient Discharge Instructions ACTIVITY: Continue current activity DIET: continue same diet Providers Primary Care Provider: Geovany Medel Admit Provider: Shun Oconnell Attending Provider: Shun Oconnell
[2024-04-05 07:59] VITALS: BP 116/65; PULSE 73; RESP 22; TEMP 37.3; O2SAT 99
[2024-04-05] MEDS: ACETAMINOPHEN 500MG TAB 500 MG PO (09:04)
[2024-04-05] MEDS: PANTOPRAZOLE 40MG TABLET 40 MG PO (09:14)
[2024-04-05] MEDS: BISOPROLOL 5MG TABLET 10 MG PO (09:14)
[2024-04-05] MEDS: CITALOPRAM 10MG TABLET 10 MG PO (09:14)
[2024-04-05] MEDS: FAMOTIDINE 20MG TABLET 20 MG PO (09:14)
[2024-04-05] MEDS: OXYCODONE 5MG IMMEDIATE RELEASE TABLET 10 MG PO (09:15)
[2024-04-05] MEDS: APIXABAN 5MG TABLET 5 MG PO (09:15)
[2024-04-05] MEDS: GABAPENTIN 600MG TABLET 600 MG PO (09:15)
[2024-04-05] MEDS: NYSTATIN CREAM 30GM/TUBE TP (09:16)
== END 2024-04-05 10:23 | disposition hospice, home (50) | DRG 690 ==
LOC: ER 20:55 → 2ND 04-04 01:09
PROVIDERS: Admitting Provider Internal Medicine Adolescent Medicine; Emergency Provider Student in an Organized Health Care Education/Training Program; PCP Internal Medicine; Visit Provider Internal Medicine Adolescent Medicine
DX: N39.0 Urinary tract infection, site not specified (principal); G93.40 Encephalopathy, unspecified; J96.11 Chronic respiratory failure with hypoxia; N18.9 Chronic kidney disease, unspecified; Z51.5 Encounter for palliative care; Z79.4 Long term (current) use of insulin; E11.40 Type 2 diabetes mellitus with diabetic neuropathy, unspecified; I12.9 Hypertensive chronic kidney disease with stage 1 through stage 4 chronic kidney disease, or unspecified chronic kidney disease; E11.22 Type 2 diabetes mellitus with diabetic chronic kidney disease; Z86.73 Personal history of transient ischemic attack (TIA), and cerebral infarction without residual deficits; K21.9 Gastro-esophageal reflux disease without esophagitis; B37.2 Candidiasis of skin and nail; Z79.899 Other long term (current) drug therapy; Z66 Do not resuscitate
CPT/HCPCS: 36415; 70450; 71045; 74176; 80053; 81001; 82803; 82962; 83605; 83735; 84443; 84484; 85007; 85025; 85027; 87040; 87086; 93005; 99291; J0696; J2405; J7120

== ENCOUNTER 2024-04-20 08:57 | Emergency (ER) | payer OTHER, MEDICARE, SELFPAY ==
[2024-04-20] VITALS (12 sets, daily range): BP systolic 108–155; BP diastolic 62–87; PULSE 69–79; RESP 18; TEMP 36.6–36.7; O2SAT 94–100; BMI 38.2
--- NOTE | 2024-04-20 09:05 | PC.NURSE ---
PT PLACED ON BEDPAN, LARGE VOID MISSING THE BEDPAN. PT CLEANED AND COMPLETE BED CHANGE. DRY GOWN AND CHUX PLACED. PT ON PUREWICK AT THIS TIME. CALL LIGHT WITHIN REACH. FAMILY AT BEDSIDE. NO FURTHER NEEDS VOICED
--- NOTE | 2024-04-20 09:08 | PC.NURSE ---
DR MCCOLLUM AT BEDSIDE
--- NOTE | 2024-04-20 09:10 | CT_ITS ---
FINAL REPORT TECHNIQUE: Thin section axial images were obtained through the thoracic spine without contrast. Sagittal and coronal images were obtained from the axial data. CLINICAL HISTORY: fall out of bed, neck/back pain FINDINGS: There is no acute fracture of the thoracic spine. There is no malalignment. There is multilevel degenerative disc disease. Small bilateral effusions are identified. No acute paraspinal abnormality is identified. IMPRESSION: Multilevel degenerative disc disease. Reviewed, Interpreted and Dictated by Helga Scott MD Transcribed by Marti Jonas Authenticated and [facility]
--- NOTE | 2024-04-20 09:10 | CT_ITS ---
FINAL REPORT TECHNIQUE: Thin section axial images were obtained through the lumbar spine without contrast. Sagittal and coronal reconstruction images were obtained from the axial data. Exam was performed using dose reduction techniques. CLINICAL HISTORY: fall out of bed, neck/back pain COMPARISON: CT abdomen and pelvis 04/03/2024 FINDINGS: There is no acute fracture or acute malalignment of the lumbar spine. Vertebral body height is preserved. There is mild multilevel degenerative disease with disc space narrowing and osteophyte formation, stable since the prior CT of April 03. There is no significant central stenosis. Postoperative changes of a posterior lumbar fusion at the L2-3 level are once again identified. Paraspinal soft tissues are within normal limits. There is no paraspinal mass or fluid collection. Small bilateral pleural effusions are noted in the lung bases. IMPRESSION: No acute abnormality of the lumbar spine. Mild multilevel degenerative disease. Prior posterior fusion at the L2-3 level. Reviewed, Interpreted and Dictated by Helga Scott MD Transcribed by Jade Cabrera Authenticated and . [facility]
--- NOTE | 2024-04-20 09:11 | CT_ITS ---
FINAL REPORT TECHNIQUE: Thin section axial images through the cervical spine were performed without contrast. Coronal and sagittal reformatted images were performed and reviewed.This study was performed with techniques to keep radiation dose as low as reasonably achievable, (ALARA). Individualize dose reduction techniques using automated exposure control or adjustment of mA and/or kV according to the patient's size were employed. CLINICAL HISTORY: fall, neck pain FINDINGS: There is normal alignment of the cervical spine. There is no subluxation. The prevertebral soft tissues are unremarkable. The vertebral bodies are normal in height. The facets overlap at all levels. The spinous processes are normal. There is mild rightward curvature of the cervical spine. There is straightening of the normal cervical curvature which may be due to positioning or muscle spasm. There is bony fusion of C4, C5, and C6. There is significant disc space narrowing noted at C6-C7. There are multilevel degenerative facet changes. There are posterior osteophytes at C5-C6 with mild central canal narrowing. There is moderate foraminal stenosis on the left at C6-C7. There is no fracture. IMPRESSION: Degenerative changes of the cervical spine without acute fracture. Authenticated and [facility]
--- NOTE | 2024-04-20 09:11 | CT_ITS ---
FINAL REPORT TECHNIQUE: Thin section axial images through the brain were performed without contrast.This study was performed with techniques to keep radiation dose as low as reasonably achievable, (ALARA). Individualize dose reduction techniques using automated exposure control or adjustment of mA and/or kV according to the patient's size were employed. CLINICAL HISTORY: fall out of bed, neck/back pain COMPARISON: 04/03/2024 FINDINGS: Bone windows are unremarkable. The visualized paranasal sinuses and mastoid air cells are unremarkable. There is mild global atrophy. There is decreased attenuation in the white matter most consistent with minimal microvascular change. There is no evidence of acute ischemia or hemorrhage. There are no extra axial fluid collections. There is no mass or mass effect. IMPRESSION: 1. No acute intracranial abnormalities. 2. Atrophy with microvascular change. Authenticated and [facility]
--- NOTE | 2024-04-20 09:13 | XR_ITS ---
FINAL REPORT CLINICAL HISTORY: fall FINDINGS: Pelvis A single view was obtained. There is no acute fracture or dislocation. There are degenerative changes of the hips bilaterally. Note is made of diffuse osteopenia. No soft tissue abnormality is identified. IMPRESSION: Degenerative changes without acute abnormality. Reviewed, Interpreted and Dictated by Helga Scott MD Transcribed by Marti Jonas Authenticated and [facility]
--- NOTE | 2024-04-20 09:17 | HMH.EDGENADL ---
Discharge Plan Disposition Patient Disposition: Hospice - Home Prescriptions Prescriptions: New nitrofurantoin macrocrystal 100 mg capsule 100 mg PO BID 5 Days Qty: 10 0RF Rx Instructions: must administer with a meal/food No Action alprazolam 0.5 mg tablet 0.5 mg PO TID PRN (Reason: Anxiety) furosemide 80 mg tablet 80 mg PO Rx Instructions: once daily every tuesday, tuesday, and tuesday escitalopram oxalate 5 mg tablet 5 mg PO DAILY Rx Instructions: TAKE 1 TABLET BY MOUTH IN THE MORNING oxycodone 10 mg tablet 10 mg PO QID PRN (Reason: Moderate Pain (Scale Score 5-6)) cefdinir 300 mg capsule 300 mg PO BID 5 Days Qty: 10 0RF nystatin 100,000 unit/gram Cream 1 applic topical QID 10 Days Qty: 60 0RF gabapentin 600 mg tablet 600 mg PO QID insulin glargine [Lantus U-100 Insulin] 100 unit/mL solution 35 unit SQ HS bisoprolol fumarate 10 mg tablet 10 mg PO DAILY famotidine 20 mg tablet 20 mg PO BID pantoprazole 40 mg tablet,delayed release (DR/EC) 40 mg PO BID hydroxychloroquine 200 mg tablet 200 mg PO BID fentanyl 25 mcg/hr patch 72 hour 25 mcg transdermal Q72H insulin aspart U-100 [Novolog FlexPen U-100 Insulin] 100 unit/mL (3 mL) insulin pen 10 unit SQ DAILYP PRN (Reason: Hyperglycemia) Eliquis 5 mg tablet 5 mg PO BID Jardiance 10 mg tablet 10 mg PO DAILY polyethylene glycol 3350 17 gram Powder In Packet 17 g PO BID PRN (Reason: Constipation) melatonin 3 mg Tablet 3 mg PO HS acetaminophen 500 mg Tablet 500 mg PO BIDP PRN (Reason: Pain) Referrals Follow up/Referrals: Provider,Referral, MD [Referring] - See instructions Activity Restrictions/Add. Instructions Additional Instructions/Restrictions: Take antibiotics as prescribed. Continue other home medications. f/u w/ hospice and PCP. Clinical Impressions Clinical Impression: Fall Qualifiers: Encounter type: initial encounter Qualified Code(s): W19.XXXA - Unspecified fall, initial encounter Back pain Qualifiers: Back pain location: back pain in unspecified location Chronicity: chronic Back pain laterality: midline Qualified Code(s): M54.9 - Dorsalgia, unspecified UTI (urinary tract infection) Qualifiers: Urinary tract infection type: site unspecified Hematuria presence: without hematuria Qualified Code(s): N39.0 - Urinary tract infection, site not specified Discharge ED Provider: Vince Javier General Adult HPI <Vince Javier MD - Last Filed: 04/20/24 16:12> General Chief complaint: Fall Stated complaint: Back Pain Time Seen by Provider: 04/20/24 09:00 Mode of Arrival: EMS Source of Information: Patient History of Present Illness HPI narrative: This is a 78 yo F well known to our department w/ multiple comorbidities including stroke on Eliquis (bed-bound, recently signed w/ home hospice) who presents after a fall out of bed. States that she rolled out of bed trying to use bedside commode. Unsure if she hit head. No LOC. Reports worsening of chronic neck and back pain. Denies any other injuries. Spouse reports concerns for UTI given recent hallucinations. No hallucinations at present. Related Data Home Medications Medication Instructions Recorded Confirmed apixaban 5 mg tablet (Eliquis) 5 mg PO BID 09/27/23 04/03/24 bisoprolol fumarate 10 mg tablet 10 mg PO DAILY 09/27/23 04/03/24 empagliflozin 10 mg tablet 10 mg PO DAILY 09/27/23 04/04/24 (Jardiance) famotidine 20 mg tablet 20 mg PO BID 09/27/23 04/03/24 fentanyl 25 mcg/hr transdermal 25 mcg transdermal Q72H 09/27/23 04/03/24 patch gabapentin 600 mg tablet 600 mg PO QID 09/27/23 04/03/24 hydroxychloroquine 200 mg tablet 200 mg PO BID 09/27/23 04/03/24 insulin aspart U-100 100 unit/mL 10 unit SQ DAILYP PRN Hyperglycemia 09/27/23 04/03/24 (3 mL) subcutaneous pen (Novolog FlexPen U-100 Insulin aspart) insulin glargine 100 unit/mL 35 unit SQ HS 09/27/23 04/03/24 subcutaneous solution (Lantus U-100 Insulin) pantoprazole 40 mg tablet,delayed 40 mg PO BID 09/27/23 04/03/24 release acetaminophen 500 mg tablet 500 mg PO BIDP PRN Pain 09/28/23 04/03/24 melatonin 3 mg tablet 3 mg PO HS 09/28/23 04/03/24 polyethylene glycol 3350 17 gram 17 g PO BID PRN Constipation 09/28/23 04/03/24 oral powder packet alprazolam 0.5 mg tablet 0.5 mg PO TID PRN Anxiety 03/19/24 04/04/24 escitalopram oxalate 5 mg tablet 5 mg PO DAILY 04/03/24 04/03/24 furosemide 80 mg tablet 80 mg PO MOWEFR 04/03/24 04/04/24 oxycodone 10 mg tablet 10 mg PO QID PRN Moderate Pain 04/03/24 04/03/24 (Scale Score 5-6) Previous Rx's Medication Instructions Recorded cefdinir 300 mg capsule 300 mg PO BID 5 days #10 caps 04/04/24 nystatin 100,000 unit/gram topical 1 applic topical QID 10 days #60 04/05/24 cream grams nitrofurantoin macrocrystal 100 mg 100 mg PO BID 5 days #10 caps 04/20/24 capsule Allergies Allergy/AdvReac Type Severity Reaction Status Date / Time amitriptyline [From Elavil] Allergy Severe X-EFGOUO-EPSH/THROAT; Verified 03/19/24 14:25 SEIZURES chlorpromazine Allergy Severe SEIZURES Verified 03/19/24 14:25 [From Thorazine] dichloralphenazone Allergy Severe S-SWELLS-OR Verified 03/19/24 14:25 [From Midrin] AL/THROAT isometheptene [From Midrin] Allergy Severe S-SWELLS-OR Verified 03/19/24 14:25 AL/THROAT prochlorperazine Allergy Severe SEIZURES Verified 03/19/24 14:25 [From Compazine] adhesive tape Allergy Intermediate I-RASH Verified 03/19/24 14:25 aspirin Allergy Intermediate COLD Verified 08/11/23 14:29 SWEATS , N/V cyclobenzaprine Allergy Unknown Unknown Verified 08/11/23 14:29 [From FLEXERIL] allergy reaction duloxetine [DULOXETINE] Allergy Unknown Unknown Verified 08/11/23 14:29 allergy reaction Iodinated Contrast Media Allergy Unknown Unknown Verified 08/11/23 14:29 [IODINATED CONTRAST MEDIA - allergy ORAL AND] reaction Sulfa (Sulfonamide Allergy Unknown CONTRAINDICATED Verified 03/19/24 14:25 Antibiotics) WITH ASTHMA trimethoprim [TRIMETHOPRIM] Allergy Unknown Unknown Verified 03/19/24 14:25 allergy reaction leflunomide Allergy rash, Verified 03/19/24 14:25 redness Macrolide Antibiotics Allergy rash, Verified 03/19/24 14:25 redness Beta-Blockers AdvReac Severe MAKES Verified 03/19/24 14:25 (Beta-Adrenergic Bloc ASTHMA WORSE caffeine [From Cafergot] AdvReac Mild NA-NAUSEA Verified 03/19/24 14:25 ergotamine [From Cafergot] AdvReac Mild NA-NAUSEA Verified 03/19/24 14:25 pregabalin [From Lyrica] AdvReac Mild TOO Verified 03/19/24 14:25 SEDATED NSAIDS (Non-Steroidal AdvReac Unknown Verified 03/19/24 14:25 Anti-Inflamma allergy reaction PFSH <Vince Javier MD - Last Filed: 04/20/24 16:12> PFSH Disclaimer: The information contained in this section may have been updated after the patient was seen, as this information can be updated by other users. Medical History Frequent headaches CKD (chronic kidney disease) stage 3, GFR 30-59 ml/min Dysphagia Pacemaker CVA (cerebral vascular accident) Chronic narcotic use Severe sleep apnea Obese Diabetic neuropathy Hypertension Polypharmacy GERD (gastroesophageal reflux disease) Diabetes Chronic pain disorder Degenerative joint disease (DJD) of lumbar spine Lumbosacral radiculopathy due to degenerative joint disease of spine Surgical History H/O: hysterectomy History of carpal tunnel surgery History of spinal surgery History of colon resection Family History Other Diabetes Social History (Updated 04/03/24 @ 23:34 by Margaret Solitario RN) Smoking Status: Never smoker second hand exposure: No alcohol intake: never substance use type: denies use current occupational status: disabled Travel in the last 8 weeks: None household members: spouse housing: other number of children: 3 current occupational exposures/hazards: No caffeine: Yes <Vince Javier MD - Last Filed: 04/20/24 16:12> ROS Obtained: Yes All systems reviewed & no additional complaints except as documented Physical Exam <Vince Javier MD - Last Filed: 04/20/24 16:12> General General appearance: alert and in no apparent distress Eye Eye exam: Present normal appearance, PERRL and EOMI Neck Neck exam: Present tenderness Respiratory Respiratory exam: Present normal lung sounds bilaterally; Absent respiratory distress Cardiovascular Cardiovascular exam: Present regular rate and normal rhythm Abdominal Exam Abdominal exam: Present soft and distention; Absent tenderness, guarding or rebound Extremities Exam Extremities exam: Present normal inspection Back Exam Back exam: Present tenderness (diffuse) Neurological Exam Neurological exam: Present alert and oriented X3 Skin Skin exam: Present warm and dry Medical Decision Making <Vince Javier MD - Last Filed: 04/20/24 16:12> Medical Records Medical records reviewed: Yes I reviewed the patient's medical records. Abraham Inquiry Pt receiving controlled substance: No Vital Signs: 04/20/24 08:58 04/20/24 09:39 04/20/24 10:14 Temperature 97.9 F Temperature Source Oral Pulse Rate 70 69 Pulse Rate [Radial] 76 Respiratory Rate 18 Blood Pressure 128/62 151/65 H Blood Pressure [Right Arm] 124/65 Blood Pressure Mean 83 Blood Pressure Mean [Right Arm] 84 Blood Pressure Source Blood Pressure Source [Right Arm] Automatic Cuff Blood Pressure Position Blood Pressure Position [Right Arm] Sitting 02 Sat by Pulse Oximetry 99 100 95 Oxygen Delivery Method Nasal Cannula Room Air Oxygen Flow Rate (LPM) 3 04/20/24 10:31 04/20/24 11:01 04/20/24 11:31 Temperature Temperature Source Pulse Rate 70 79 75 Pulse Rate [Radial] Respiratory Rate Blood Pressure 129/69 136/67 116/87 Blood Pressure [Right Arm] Blood Pressure Mean Blood Pressure Mean [Right Arm] Blood Pressure Source Blood Pressure Source [Right Arm] Blood Pressure Position Blood Pressure Position [Right Arm] 02 Sat by Pulse Oximetry 98 99 94 L Oxygen Delivery Method Room Air Room Air Room Air Oxygen Flow Rate (LPM) 04/20/24 12:02 04/20/24 12:31 04/20/24 13:01 Temperature Temperature Source Pulse Rate 70 72 70 Pulse Rate [Radial] Respiratory Rate Blood Pressure 155/80 H 154/78 H 147/76 H Blood Pressure [Right Arm] Blood Pressure Mean 98 90 96 Blood Pressure Mean [Right Arm] Blood Pressure Source Blood Pressure Source [Right Arm] Blood Pressure Position Blood Pressure Position [Right Arm] 02 Sat by Pulse Oximetry 99 99 99 Oxygen Delivery Method Oxygen Flow Rate (LPM) 04/20/24 13:31 04/20/24 14:01 04/20/24 15:10 Temperature 98.0 F Temperature Source Oral Pulse Rate 70 70 Pulse Rate [Radial] Respiratory Rate 18 Blood Pressure 143/80 H 133/69 108/72 L Blood Pressure [Right Arm] Blood Pressure Mean 88 82 Blood Pressure Mean [Right Arm] Blood Pressure Source Automatic Cuff Blood Pressure Source [Right Arm] Blood Pressure Position Sitting Blood Pressure Position [Right Arm] 02 Sat by Pulse Oximetry 99 Oxygen Delivery Method Nasal Cannula Oxygen Flow Rate (LPM) 3 Lab Data Lab Results 04/20/24 09:38: WBC 4.3 L, RBC 2.85 L, Hgb 8.2 L, Hct 27.6 L, MCV 96.8, MCH 28.7, MCHC 29.6 L, RDW 21.2 H, Plt Count 152, MPV 9.1, Neut % (Auto) 70.3, Lymph % (Auto) 17.9, Swisher % (Auto) 7.0, Eos % (Auto) 4.4, Baso % (Auto) 0.4, Neut # (Auto) 3.0, Lymph # (Auto) 0.8, Swisher # (Auto) 0.3, Eos # (Auto) 0.2, Baso # (Auto) 0.0, PT 15.4 H, INR 1.42 H, Sodium 142, Potassium 4.4, Chloride 105, Carbon Dioxide 34 H, Anion Gap 7.4, BUN 30 H, Creatinine 1.80 H, Estimated Creat Clear 43, Estimated GFR 27 L, Est GFR ( Amer) 33 L, Glucose 121 H, Calcium 8.4, Total Bilirubin 0.7, AST 34, ALT 19, Alkaline Phosphatase 106, Total Protein 6.2 L, Albumin 3.5, Globulin 2.7, Albumin/Globulin Ratio 1.3 04/20/24 10:30: Urine Color Yellow, Urine Appearance Clear, Urine pH 7.0, Ur Specific Industry 1.010, Urine Protein Negative, Urine Glucose (UA) 2+, Urine Ketones Negative, Urine Blood Negative, Urine Nitrate Negative, Urine Bilirubin Negative, Urine Urobilinogen 0.2, Ur Leukocyte Esterase 2+ A, Urine RBC Occasional, Urine WBC 5-10, Ur Squamous Epith Cells None, Urine Bacteria None 04/20/24 09:38 04/20/24 09:38 Orders (Tests/Meds): ED MEDICATIONS Discontinued Medications Generic Name Dose Route Start Last Admin Trade Name Freq PRN Reason Stop Dose Admin Hydromorphone HCl 0.5 mg 04/20/24 09:10 04/20/24 11:37 Hydromorphone 2mg/Ml Syringe IV 05/20/24 09:09 0.5 mg Q2HP PRN Administration Severe Pain (7-10) ORDERS Category Date Time Status CT cervical spine wo con Stat Cat Scan 04/20/24 09:[address] head/brain wo con Stat Cat Scan 04/20/24 09:[address] lumbar spine wo con Stat Cat Scan 04/20/24 09:[address] thoracic spine wo con Stat Cat Scan 04/20/24 09:10 Completed Pelvis XR 1-2 views [XR pelvis 1-2V] Stat Exams 04/20/24 09:13 Completed CBC w/Auto Diff [Complete Blood Count Auto Diff] Stat Lab 04/20/24 09:38 Completed CMP [Comprehensive Metabolic Panel] Stat Lab 04/20/24 09:38 Completed PT/INR [Prothrombin Time INR] Stat Lab 04/20/24 09:38 Completed Urinalysis and Microscopic Stat Lab 04/20/24 10:30 Completed Urine Culture Stat Micro 04/20/24 10:30 Received Medical Decision Narrative: This is a 78 yo F well known to our department w/ multiple comorbidities including stroke on Eliquis (bed-bound, recently signed w/ home hospice) who presents after a fall out of bed. On arrival, pt well appearing in no acute distress, HDS, afebrile. DDx includes but is not limited to intracranial injury, spinal fxr/dislocation, long bone/pelvic fxr, UTI. Initial management included Dilaudid PRN. Workup included CBC, CMP, UA, PT/INR, anti-Xa, CT head, CT full spine, pelvis XR. Labs show Cr 1.8 which is similar to pts fluctuating baseline, Hb 8.2 from 7.8 2 weeks ago, glucose 121, 5-10 WBC on UA w/ + LE (could be consistent w/ UTI, will treat w/ OP abx pending urine culture given 's concerns). CT imaging independently interpreted by me revealing of no acute intracranial pathology or spinal pathology. Pelvis XR unremarkable on my read as well. Considered hospitalization of this pt, however she is appropriate for discharge back to home hospice in alignment w/ her goals of care and outpatient treatment of UTI w/ nitrofurantoin. Prescription sent. Discharged in stable condition. Return precautions given. <Shahid Castillo MD - Last Filed: 04/20/24 14:21> Vital Signs: 04/20/24 08:58 04/20/24 09:39 04/20/24 10:14 Temperature 97.9 F Temperature Source Oral Pulse Rate 70 69 Pulse Rate [Radial] 76 Respiratory Rate 18 Blood Pressure 128/62 151/65 H Blood Pressure [Right Arm] 124/65 Blood Pressure Mean 83 Blood Pressure Mean [Right Arm] 84 Blood Pressure Source Blood Pressure Source [Right Arm] Automatic Cuff Blood Pressure Position Blood Pressure Position [Right Arm] Sitting 02 Sat by Pulse Oximetry 99 100 95 Oxygen Delivery Method Nasal Cannula Room Air Oxygen Flow Rate (LPM) 3 04/20/24 10:31 04/20/24 11:01 04/20/24 11:31 Temperature Temperature Source Pulse Rate 70 79 75 Pulse Rate [Radial] Respiratory Rate Blood Pressure 129/69 136/67 116/87 Blood Pressure [Right Arm] Blood Pressure Mean Blood Pressure Mean [Right Arm] Blood Pressure Source Blood Pressure Source [Right Arm] Blood Pressure Position Blood Pressure Position [Right Arm] 02 Sat by Pulse Oximetry 98 99 94 L Oxygen Delivery Method Room Air Room Air Room Air Oxygen Flow Rate (LPM) 04/20/24 12:02 04/20/24 12:31 04/20/24 13:01 Temperature Temperature Source Pulse Rate 70 72 70 Pulse Rate [Radial] Respiratory Rate Blood Pressure 155/80 H 154/78 H 147/76 H Blood Pressure [Right Arm] Blood Pressure Mean 98 90 96 Blood Pressure Mean [Right Arm] Blood Pressure Source Blood Pressure Source [Right Arm] Blood Pressure Position Blood Pressure Position [Right Arm] 02 Sat by Pulse Oximetry 99 99 99 Oxygen Delivery Method Oxygen Flow Rate (LPM) 04/20/24 13:31 04/20/24 14:01 04/20/24 15:10 Temperature 98.0 F Temperature Source Oral Pulse Rate 70 70 Pulse Rate [Radial] Respiratory Rate 18 Blood Pressure 143/80 H 133/69 108/72 L Blood Pressure [Right Arm] Blood Pressure Mean 88 82 Blood Pressure Mean [Right Arm] Blood Pressure Source Automatic Cuff Blood Pressure Source [Right Arm] Blood Pressure Position Sitting Blood Pressure Position [Right Arm] 02 Sat by Pulse Oximetry 99 Oxygen Delivery Method Nasal Cannula Oxygen Flow Rate (LPM) 3 Lab Data Lab Results 04/20/24 09:38: WBC 4.3 L, RBC 2.85 L, Hgb 8.2 L, Hct 27.6 L, MCV 96.8, MCH 28.7, MCHC 29.6 L, RDW 21.2 H, Plt Count 152, MPV 9.1, Neut % (Auto) 70.3, Lymph % (Auto) 17.9, Swisher % (Auto) 7.0, Eos % (Auto) 4.4, Baso % (Auto) 0.4, Neut # (Auto) 3.0, Lymph # (Auto) 0.8, Swisher # (Auto) 0.3, Eos # (Auto) 0.2, Baso # (Auto) 0.0, PT 15.4 H, INR 1.42 H, Sodium 142, Potassium 4.4, Chloride 105, Carbon Dioxide 34 H, Anion Gap 7.4, BUN 30 H, Creatinine 1.80 H, Estimated Creat Clear 43, Estimated GFR 27 L, Est GFR ( Amer) 33 L, Glucose 121 H, Calcium 8.4, Total Bilirubin 0.7, AST 34, ALT 19, Alkaline Phosphatase 106, Total Protein 6.2 L, Albumin 3.5, Globulin 2.7, Albumin/Globulin Ratio 1.3 04/20/24 10:30: Urine Color Yellow, Urine Appearance Clear, Urine pH 7.0, Ur Specific Industry 1.010, Urine Protein Negative, Urine Glucose (UA) 2+, Urine Ketones Negative, Urine Blood Negative, Urine Nitrate Negative, Urine Bilirubin Negative, Urine Urobilinogen 0.2, Ur Leukocyte Esterase 2+ A, Urine RBC Occasional, Urine WBC 5-10, Ur Squamous Epith Cells None, Urine Bacteria None Orders (Tests/Meds): ED MEDICATIONS Discontinued Medications Generic Name Dose Route Start Last Admin Trade Name Freq PRN Reason Stop Dose Admin Hydromorphone HCl 0.5 mg 04/20/24 09:10 04/20/24 11:37 Hydromorphone 2mg/Ml Syringe IV 05/20/24 09:09 0.5 mg Q2HP PRN Administration Severe Pain (7-10) ORDERS Category Date Time Status CT cervical spine wo con Stat Cat Scan 04/20/24 09:[address] head/brain wo con Stat Cat Scan 04/20/24 09:[address] lumbar spine wo con Stat Cat Scan 04/20/24 09:[address] thoracic spine wo con Stat Cat Scan 04/20/24 09:10 Completed Pelvis XR 1-2 views [XR pelvis 1-2V] Stat Exams 04/20/24 09:13 Completed CBC w/Auto Diff [Complete Blood Count Auto Diff] Stat Lab 04/20/24 09:38 Completed CMP [Comprehensive Metabolic Panel] Stat Lab 04/20/24 09:38 Completed PT/INR [Prothrombin Time INR] Stat Lab 04/20/24 09:38 Completed Urinalysis and Microscopic Stat Lab 04/20/24 10:30 Completed Urine Culture Stat Micro 04/20/24 10:30 Received Medical Decision Narrative: This is a 78 yo F well known to our department w/ multiple comorbidities including stroke on Eliquis (bed-bound, recently signed w/ home hospice) who presents after a fall out of bed. On arrival, pt well appearing in no acute distress, HDS, afebrile. DDx includes but is not limited to intracranial injury, spinal fxr/dislocation, long bone/pelvic fxr, UTI. Initial management included Dilaudid PRN. Workup included CBC, CMP, UA, PT/INR, anti-Xa, CT head, CT full spine, pelvis XR. Labs show Cr 1.8 which is similar to pts fluctuating baseline, Hb 8.2 from 7.8 2 weeks ago, glucose 121, 5-10 WBC on UA w/ + LE (could be consistent w/ UTI, will treat w/ OP abx pending urine culture given 's concerns). CT imaging independently interpreted by me revealing of no acute intracranial pathology or spinal pathology. Pelvis XR unremarkable on my read as well. Considered hospitalization of this pt, however she is appropriate for discharge back to home hospice in alignment w/ her goals of care and outpatient treatment of UTI w/ nitrofurantoin. Prescription sent. Discharged in stable condition. Return precautions given. Critical Care <Vince Javier MD - Last Filed: 04/20/24 16:12> Critical Care Time Critical Care Time: No
[2024-04-20 09:47] LABS: Basophils % 0.4 % (0.1-2.0); Eosinophils # 0.2 K/mm3 (0.0-0.4); Eosinophils % 4.4 % (0.1-12.0); Hematocrit 27.6 % (37.0-47.0); Hemoglobin 8.2 g/dL (12.2-16.2); Lymphocytes # 0.8 K/mm3 (0.7-4.5); Lymphocytes % 17.9 % (10-50); Mean Corpuscular HGB Conc 29.6 g/dL (31.8-35.4); Mean Corpuscular Hemoglobin 28.7 pg (27.0-31.2); Mean Corpuscular Volume 96.8 fl (81-99); Mean Platelet Volume 9.1 fl (7.4-10.4); Monocytes # 0.3 K/mm3 (0.1-1.0); Neutrophils % 70.3 % (37.0-80.0); Platelet Count 152 K/mm3 (142-424); Red Blood Count 2.85 M/mm3 (4.20-5.40); Red Cell Distribution Width 21.2 % (11.5-17.5); White Blood Count 4.3 K/mm3 (4.8-10.8)
[2024-04-20 09:54] LABS: INR 1.42 (0.9-1.1); Prothrombin Time 15.4 seconds (10.1-12.5)
[2024-04-20 10:00] LABS: Chloride 105 mmol/L (98-107); Potassium 4.4 mmoL/L (3.5-5.1); Sodium 142 mmol/L (136-145)
[2024-04-20 10:02] LABS: Alanine Aminotransferase 19 U/L (12-78); Alkaline Phosphatase 106 U/L (38-126); Aspartate Amino Transferase 34 U/L (14-36); Bilirubin,Total 0.7 mg/dl (0.2-1.3); Blood Urea Nitrogen 30 mg/dl (7-17); Creatinine Clearance Estimated 43 mL/min (50-200); Estimated Glomerular Filt Rate 27 ml/min (>60); GFR (African American) 33 ML/MIN (>60)
[2024-04-20 10:03] LABS: Albumin Level 3.5 g/dl (3.5-5.0); Albumin/Globulin Ratio 1.3 (1.1-1.8); Anion Gap 7.4 mEq/L (5-15); Calcium 8.4 mg/dl (8.4-10.2); Carbon Dioxide 34 mmol/L (22.0-30.0); Globulin 2.7 g/dL (1.3-3.2); Glucose 121 mg/dl (74-100); Total Protein,Serum 6.2 g/dl (6.3-8.2)
--- NOTE | 2024-04-20 10:20 | PC.NURSE ---
Pt. had an episode of urinary incontinence upon arrival. Purewick now in place. No urine obtained at this time.
[2024-04-20] MEDS: HYDROMORPHONE 2MG/ML SYRINGE 0.5 MG IV ×2 (10:26→11:37)
[2024-04-20 10:34] LABS: Microscopic, Urine URINE MICROSCOPIC (MICROSCOPIC)
[2024-04-20 10:44] LABS: Appearance,Urine CLEAR (Clear); Bilirubin,Urine Negative (Negative); Blood, Urine Negative (Negative); Color,Urine YELLOW (Yellow); Glucose,Urine (UA) 2+ (Negative); Ketones,Urine Negative (Negative); Leukocyte Esterase,Urine 2+ (Negative); Nitrate,Urine Negative (Negative); Protein,Urine Negative (Negative); Urobilinogen,Urine 0.2 EU/dl (0.2)
[2024-04-20 11:05] LABS: RBC,Urine Occasional #/hpf (0-3)
--- NOTE | 2024-04-20 13:01 | PC.NURSE ---
call made to rad for status of lumbar ct scan; radiology therapist reports scan status is locked .
--- NOTE | 2024-04-20 13:42 | PC.NURSE ---
call made to rad for status update on final report to lumbar CT, radioisotope technician states that they will chat to see update.
--- NOTE | 2024-04-20 14:36 | PC.NURSE ---
[facility] NOTIFIED OF NEED FOR TRANSPORT HOME
--- NOTE | 2024-04-20 15:00 | PC.NURSE ---
1000MLS CLEAR YELLOW URINE VIA PUREWICK
--- NOTE | 2024-04-20 15:00 | PC.NURSE ---
HOSPICE NOTIFIED OF [facility]
== END 2024-04-20 15:10 | disposition hospice, home (50) ==
PROVIDERS: Emergency Provider Student in an Organized Health Care Education/Training Program; PCP Internal Medicine
DX: N39.0 Urinary tract infection, site not specified (principal); M54.59 Other low back pain; M54.2 Cervicalgia; N18.30 Chronic kidney disease, stage 3 unspecified; K21.9 Gastro-esophageal reflux disease without esophagitis; I12.9 Hypertensive chronic kidney disease with stage 1 through stage 4 chronic kidney disease, or unspecified chronic kidney disease; E11.22 Type 2 diabetes mellitus with diabetic chronic kidney disease; Z86.73 Personal history of transient ischemic attack (TIA), and cerebral infarction without residual deficits; Z79.01 Long term (current) use of anticoagulants; Z79.4 Long term (current) use of insulin; Z79.84 Long term (current) use of oral hypoglycemic drugs
CPT/HCPCS: 70450; 72125; 72128; 72131; 72170; 80053; 81001; 85025; 85610; 87086; 96365; 96366; 99285; J1170

== ENCOUNTER 2024-04-26 02:39 | Emergency (ER) | payer OTHER, MEDICARE, SELFPAY ==
[2024-04-26 02:40] VITALS: BP 132/76; PULSE 75; RESP 19; TEMP 36.8; O2SAT 97; BMI 40.6
--- NOTE | 2024-04-26 02:41 | CT_ITS ---
PROCEDURE INFORMATION: Exam: CT Chest Without Contrast; Diagnostic Exam date and time: 04/26/2024 3:24 AM Age: 78 years old Clinical indication: Injury or trauma; Additional info: Fall, right side pain TECHNIQUE: Imaging protocol: Diagnostic computed tomography of the chest without contrast. Radiation optimization: All CT scans at this facility use at least one of these dose optimization techniques: automated exposure control; mA and/or kV adjustment per patient size (includes targeted exams where dose is matched to clinical indication); or iterative reconstruction. COMPARISON: CT CHEST WO CON 07/18/2020 4:14 PM FINDINGS: Tubes, catheters and devices: There is a left-sided pacemaker in appropriate position. Lungs: There is diffuse septal thickening. There is no consolidation. Pleural spaces: Small bilateral pleural effusions. No pneumothorax. Heart: The heart is moderately enlarged. Mediastinal space: There no mediastinal hematoma. Lymph nodes: Unremarkable. No enlarged lymph nodes. Vasculature: Unremarkable. No aortic aneurysm. Bones/joints: No acute fracture. Soft tissues: Unremarkable. IMPRESSION: 1. Moderate cardiomegaly. 2. Mild bilateral pleural effusions with septal thickening, architectural representative of mild CHF. There is no evidence of pneumonia. 3. There is no significant traumatic injury seen.
--- NOTE | 2024-04-26 02:41 | CT_ITS ---
PROCEDURE INFORMATION: Exam: CT Abdomen And Pelvis Without Contrast Exam date and time: 04/26/2024 3:27 AM Age: 78 years old Clinical indication: Injury or trauma; Additional info: Fall, right rib/hip pain TECHNIQUE: Imaging protocol: Computed tomography of the abdomen and pelvis without contrast. Radiation optimization: All CT scans at this facility use at least one of these dose optimization techniques: automated exposure control; mA and/or kV adjustment per patient size (includes targeted exams where dose is matched to clinical indication); or iterative reconstruction. COMPARISON: CT ABDOMEN PELVIS WO CON 04/26/2024 3:27 AM FINDINGS: Liver: The liver demonstrates a nodular surface. It is otherwise unremarkable. There is no focal mass present. There is no liver laceration present. Gallbladder and biliary ducts: There are postsurgical changes from a cholecystectomy. Pancreas: No pancreatic ductal dilation. There is no laceration present. Spleen: No splenomegaly. There is no splenic laceration present. Adrenal glands: Normal. No mass. No laceration. Kidneys and ureters: No hydronephrosis. There is no renal laceration present. Stomach and bowel: Postsurgical changes from partial sigmoid colon resection. Appendix: No evidence of appendicitis. Intraperitoneal space: Mild simple abdominal ascites. Vasculature: No abdominal aortic aneurysm. No dissection. No rupture.. Lymph nodes: Unremarkable. No enlarged lymph nodes. Urinary bladder: Unremarkable as visualized. Reproductive: Unremarkable as visualized. Bones/joints: No acute fracture. No dislocation. Postsurgical changes from a fixation extends from L2-L3 with disc spacers at L3-L4 and L4-L5. Soft tissues: Unremarkable. IMPRESSION: 1. No significant traumatic injury to the abdomen or pelvis. 2. Cirrhotic liver. 3. Mild simple abdominal ascites. 4. Postsurgical changes from partial sigmoid colon resection.
--- NOTE | 2024-04-26 02:41 | XR_ITS ---
PROCEDURE INFORMATION: Exam: XR Right Forearm Exam date and time: 04/26/2024 3:27 AM Age: 78 years old Clinical indication: Injury or trauma; Fall; Additional info: Fall pain TECHNIQUE: Imaging protocol: Radiologic exam of the right forearm. Views: 2 views. COMPARISON: CR XR HAND RT 2V 04/26/2024 3:27 AM FINDINGS: Bones/joints: Normal. The joints are well aligned. There is no fracture present. There is no area of lysis. Soft tissues: Normal. IMPRESSION: No fracture or dislocation.
--- NOTE | 2024-04-26 02:41 | XR_ITS ---
PROCEDURE INFORMATION: Exam: XR Right Tibia and Fibula Exam date and time: 04/26/2024 3:27 AM Age: 78 years old Clinical indication: Injury or trauma; Fall; Additional info: Fall pain TECHNIQUE: Imaging protocol: Radiologic exam of the right tibia and fibula. Views: 2 views. COMPARISON: CR XR TIBIA FIBULA RT 2V 09/22/2021 4:17 PM FINDINGS: Bones/joints: Acute fracture of the proximal fibula with 1 mm of displacement. No other fracture is present. The joints are well aligned. Soft tissues: Normal. IMPRESSION: 1. Acute fracture of the proximal fibula with 1 mm of displacement. 2. No other fracture is present. The joints are well aligned.
--- NOTE | 2024-04-26 02:41 | XR_ITS ---
PROCEDURE INFORMATION: Exam: XR Right Ankle Exam date and time: 04/26/2024 3:27 AM Age: 78 years old Clinical indication: Injury or trauma; Fall; Additional info: Fall pain TECHNIQUE: Imaging protocol: Radiologic exam of the right ankle. Views: 3 or more views. COMPARISON: CR XR ANKLE RT MIN 3V 04/26/2024 3:27 AM FINDINGS: Bones/joints: Normal. The joints are well aligned. There is no fracture present. There is no area of lysis. Soft tissues: Normal. IMPRESSION: No fracture or dislocation.
--- NOTE | 2024-04-26 02:41 | XR_ITS ---
PROCEDURE INFORMATION: Exam: XR Right Hand Exam date and time: 04/26/2024 3:27 AM Age: 78 years old Clinical indication: Injury or trauma; Fall; Additional info: Fall pain TECHNIQUE: Imaging protocol: Radiologic exam of the right hand. Views: 1 or 2 views. COMPARISON: CR XR HAND RT MIN 3V 11/29/2022 5:32 PM FINDINGS: Bones/joints: Normal. The joints are well aligned. There is no fracture present. There is no area of lysis. Soft tissues: Normal. IMPRESSION: No fracture or dislocation.
--- NOTE | 2024-04-26 02:41 | XR_ITS ---
PROCEDURE INFORMATION: Exam: XR Right Foot Exam date and time: 04/26/2024 3:27 AM Age: 78 years old Clinical indication: Injury or trauma; Fall; Additional info: Fall pain TECHNIQUE: Imaging protocol: Radiologic exam of the right foot. Views: 3 or more views. COMPARISON: CR XR FOOT RT MIN 3V 04/26/2024 3:27 AM FINDINGS: Bones/joints: Normal. There is no fracture present. The joints are well aligned. There is no Lisfranc injury. Soft tissues: Normal. IMPRESSION: No significant injury of the foot.
--- NOTE | 2024-04-26 02:41 | XR_ITS ---
PROCEDURE INFORMATION: Exam: XR Right Elbow Exam date and time: 04/26/2024 3:27 AM Age: 78 years old Clinical indication: Injury or trauma; Fall; Additional info: Fall pain TECHNIQUE: Imaging protocol: Radiologic exam of the right elbow. Views: 3 or more views. COMPARISON: CR XR FOREARM RT 2V 04/26/2024 3:27 AM FINDINGS: Bones/joints: Normal. The joints are well aligned. There is no fracture present. There is no area of lysis. Soft tissues: Normal. IMPRESSION: No fracture or dislocation.
--- NOTE | 2024-04-26 02:41 | XR_ITS ---
PROCEDURE INFORMATION: Exam: XR Right Shoulder Exam date and time: 04/26/2024 3:27 AM Age: 78 years old Clinical indication: Injury or trauma; Fall; Additional info: Fall pain TECHNIQUE: Imaging protocol: Radiologic exam of the right shoulder. Views: 2 or more views. COMPARISON: CR XR SHOULDER RT MIN 2V 02/07/2023 5:11 PM FINDINGS: Bones/joints: Normal. There is no fracture present. The shoulder joint appears well aligned. The acromioclavicular joint is unremarkable. The visualized ribs and lungs are unremarkable. Soft tissues: Normal. IMPRESSION: Unremarkable examination with no fracture or dislocation.
--- NOTE | 2024-04-26 02:41 | XR_ITS ---
PROCEDURE INFORMATION: Exam: XR Right Hip Exam date and time: 04/26/2024 3:27 AM Age: 78 years old Clinical indication: Injury or trauma; Fall; Additional info: Fall pain TECHNIQUE: Imaging protocol: Radiologic exam of the right hip. Views: 2 or 3 views hip with pelvis when performed. COMPARISON: CT ABDOMEN PELVIS WO CON 04/26/2024 3:27 AM FINDINGS: Bones/joints: Unremarkable. No acute fracture. The joints are well aligned. Soft tissues: Unremarkable. IMPRESSION: No evidence for significant traumatic injury.
--- NOTE | 2024-04-26 02:41 | XR_ITS ---
PROCEDURE INFORMATION: Exam: XR Right Femur Exam date and time: 04/26/2024 3:27 AM Age: 78 years old Clinical indication: Injury or trauma; Fall; Additional info: Fall pain TECHNIQUE: Imaging protocol: Radiologic exam of the right femur. Views: 2 views. COMPARISON: CR FEMR2 FEMUR-RT-2 VIEWS 06/03/2017 11:59 AM FINDINGS: Bones/joints: Unremarkable. No acute fracture. The joints are well aligned. Soft tissues: Unremarkable. IMPRESSION: No evidence for significant traumatic injury.
--- NOTE | 2024-04-26 02:41 | XR_ITS ---
PROCEDURE INFORMATION: Exam: XR Right Humerus Exam date and time: 04/26/2024 3:27 AM Age: 78 years old Clinical indication: Injury or trauma; Fall; Additional info: Fall pain TECHNIQUE: Imaging protocol: Radiologic exam of the right humerus. Views: 2 or more views. COMPARISON: CR XR SHOULDER RT MIN 2V 04/26/2024 3:27 AM FINDINGS: Bones/joints: Normal. There is no acute fracture present. The joints are well aligned. Soft tissues: Normal. IMPRESSION: Unremarkable examination with no fracture or dislocation.
--- NOTE | 2024-04-26 02:41 | XR_ITS ---
PROCEDURE INFORMATION: Exam: XR Right Knee Exam date and time: 04/26/2024 3:27 AM Age: 78 years old Clinical indication: Injury or trauma; Fall; Additional info: Fall pain TECHNIQUE: Imaging protocol: Radiologic exam of the right knee. Views: 3 views. COMPARISON: CR XR KNEE RT 3V 02/07/2023 5:11 PM FINDINGS: Bones/joints: Normal. The joints are well aligned. There is no fracture present. There is no area of lysis. Soft tissues: Normal. IMPRESSION: No fracture or dislocation.
--- NOTE | 2024-04-26 02:42 | CT_ITS ---
PROCEDURE INFORMATION: Exam: CT Thoracic Spine Without Contrast Exam date and time: 04/26/2024 3:19 AM Age: 78 years old Clinical indication: Injury or trauma; Additional info: Trauma, critical injury suspected TECHNIQUE: Imaging protocol: Computed tomography of the thoracic spine without contrast. Radiation optimization: All CT scans at this facility use at least one of these dose optimization techniques: automated exposure control; mA and/or kV adjustment per patient size (includes targeted exams where dose is matched to clinical indication); or iterative reconstruction. COMPARISON: CT THORACIC SPINE WO CON 04/20/2024 9:54 AM FINDINGS: Bones/joints: No acute fracture. Normal alignment. No significant disc bulge or herniation. No severe spinal canal stenosis. No significant neural foraminal narrowing. Soft tissues: Moderate bilateral pleural effusions.. IMPRESSION: There is no significant traumatic injury of the thoracic spine.
--- NOTE | 2024-04-26 02:42 | CT_ITS ---
PROCEDURE INFORMATION: Exam: CT Lumbar Spine Without Contrast Exam date and time: 04/26/2024 3:22 AM Age: 78 years old Clinical indication: Injury or trauma; Additional info: Trauma, critical injury suspected TECHNIQUE: Imaging protocol: Computed tomography of the lumbar spine without contrast. Radiation optimization: All CT scans at this facility use at least one of these dose optimization techniques: automated exposure control; mA and/or kV adjustment per patient size (includes targeted exams where dose is matched to clinical indication); or iterative reconstruction. COMPARISON: CT LUMBAR SPINE WO CON 04/20/2024 9:56 AM FINDINGS: Bones/joints: Postsurgical changes from posterior fixation of L2-L3. Disc spaces at L3-L4 and L4-L5. Vertebral bodies are normal height. No acute fracture. Soft tissues: Unremarkable. IMPRESSION: 1. Postsurgical changes from posterior fixation of L2-L3. 2. Disc spaces at L3-L4 and L4-L5. 3. No acute traumatic injury of lumbar spine.
--- NOTE | 2024-04-26 02:42 | CT_ITS ---
PROCEDURE INFORMATION: Exam: CT Cervical Spine Without Contrast Exam date and time: 04/26/2024 3:16 AM Age: 78 years old Clinical indication: Injury or trauma; Additional info: Trauma, critical injury suspected TECHNIQUE: Imaging protocol: Computed tomography of the cervical spine without contrast. Radiation optimization: All CT scans at this facility use at least one of these dose optimization techniques: automated exposure control; mA and/or kV adjustment per patient size (includes targeted exams where dose is matched to clinical indication); or iterative reconstruction. COMPARISON: CT CERVICAL SPINE WO CON 26/04/2024 03:16 FINDINGS: Bones: Chronic fusion of C4-C6. Straightening of the curvature of the cervical spine is likely positional. Multilevel degenerative changes of the cervical spine producing multiple levels of mild and moderate spinal canal stenosis. Lungs: Lung apices are normal. Soft tissues: Unremarkable. IMPRESSION: No acute fracture or malalignment of the cervical spine.
--- NOTE | 2024-04-26 02:42 | CT_ITS ---
PROCEDURE INFORMATION: Exam: CT Head Without Contrast Exam date and time: 04/26/2024 3:13 AM Age: 78 years old Clinical indication: Injury or trauma; Additional info: Trauma, critical injury suspected TECHNIQUE: Imaging protocol: Computed tomography of the head without contrast. Radiation optimization: All CT scans at this facility use at least one of these dose optimization techniques: automated exposure control; mA and/or kV adjustment per patient size (includes targeted exams where dose is matched to clinical indication); or iterative reconstruction. COMPARISON: CT HEAD/BRAIN WO CON 20/04/2024 09:50 FINDINGS: Brain: Mild to moderate chronic brain volume loss and chronic small vessel ischemic changes. Cerebral ventricles: No ventriculomegaly. Paranasal sinuses: Visualized sinuses are unremarkable. No fluid levels. Mastoid air cells: Small left mastoid effusion. Orbital cavities: Status post bilateral cataract surgery. Bones: Unremarkable. No acute fracture. Soft tissues: Unremarkable. IMPRESSION: No acute intracranial findings.
--- NOTE | 2024-04-26 02:45 | XR_ITS ---
PROCEDURE INFORMATION: Exam: XR Left Shoulder Exam date and time: 04/26/2024 3:27 AM Age: 78 years old Clinical indication: Injury or trauma; Fall; Additional info: Fall pain TECHNIQUE: Imaging protocol: Radiologic exam of the left shoulder. Views: 2 or more views. COMPARISON: CT CHEST WO CON 04/26/2024 3:24 AM FINDINGS: Bones/joints: Normal. There is no fracture present. The shoulder joint appears well aligned. The acromioclavicular joint is unremarkable. The visualized ribs and lungs are unremarkable. Soft tissues: Normal. IMPRESSION: Unremarkable examination with no fracture or dislocation.
--- NOTE | 2024-04-26 02:52 | [facility].EDGENADL ---
Discharge Plan Disposition Patient Disposition: Home, Self-Care Prescriptions Prescriptions: No Action alprazolam 0.5 mg tablet 0.5 mg PO TID PRN (Reason: Anxiety) furosemide 80 mg tablet 80 mg PO Rx Instructions: once daily every tuesday, tuesday, and tuesday escitalopram oxalate 5 mg tablet 5 mg PO DAILY Rx Instructions: TAKE 1 TABLET BY MOUTH IN THE MORNING oxycodone 10 mg tablet 10 mg PO QID PRN (Reason: Moderate Pain (Scale Score 5-6)) cefdinir 300 mg capsule 300 mg PO BID 5 Days Qty: 10 0RF nystatin 100,000 unit/gram Cream 1 applic topical QID 10 Days Qty: 60 0RF nitrofurantoin macrocrystal 100 mg capsule 100 mg PO BID 5 Days Qty: 10 0RF Rx Instructions: must administer with a meal/food gabapentin 600 mg tablet 600 mg PO QID insulin glargine [Lantus U-100 Insulin] 100 unit/mL solution 35 unit SQ HS bisoprolol fumarate 10 mg tablet 10 mg PO DAILY famotidine 20 mg tablet 20 mg PO BID pantoprazole 40 mg tablet,delayed release (DR/EC) 40 mg PO BID hydroxychloroquine 200 mg tablet 200 mg PO BID fentanyl 25 mcg/hr patch 72 hour 25 mcg transdermal Q72H insulin aspart U-100 [Novolog FlexPen U-100 Insulin] 100 unit/mL (3 mL) insulin pen 10 unit SQ DAILYP PRN (Reason: Hyperglycemia) Eliquis 5 mg tablet 5 mg PO BID Jardiance 10 mg tablet 10 mg PO DAILY polyethylene glycol 3350 17 gram Powder In Packet 17 g PO BID PRN (Reason: Constipation) melatonin 3 mg Tablet 3 mg PO HS acetaminophen 500 mg Tablet 500 mg PO BIDP PRN (Reason: Pain) Referrals Follow up/Referrals: Devon Hanna DO [Staff Physician] - See instructions Provider,Referral, MD [Primary Care Provider] - See instructions Activity Restrictions/Add. Instructions Additional Instructions/Restrictions: Please keep splint clean, dry, intact. Do not bear weight on the foot. Please talk with hospice and follow-up with our orthopedist Dr. Hanna. Keep leg elevated to help with swelling and pain. Clinical Impressions Clinical Impression: Closed right fibular fracture Qualifiers: Encounter type: initial encounter Fracture morphology: spiral Fracture alignment: nondisplaced Closed fibular fracture Qualifiers: Encounter type: initial encounter Fibula location: proximal Laterality: right Print Language Print Language: [place] Discharge ED Provider: Flavio Delgadillo Adult HPI General Chief complaint: Fall Stated complaint: Fall Time Seen by Provider: 04/26/24 02:41 Mode of Arrival: EMS Source of Information: Patient, Spouse and EMS Limitations: No Limitations Description of Symptoms (Recalled from ER Triage Doc. by RN): Patient reports that she attempted to stand out of bed, although she does not walk normally. She reports that her knees buckled and she fell and hit her head on the ground. Denies loss of conciousness. Reports right leg and hip pain, right and left shoulder pain, right worse than left. Patient reports inability to walk due to severe arthritis. History of Present Illness HPI narrative: 78-year-old female with extensive past medical history presents for trauma. She reports that she does not walk at home normally, but tonight she tried to get up to go to the bedside commode. She reports that she has bad arthritis, her legs buckled and she fell onto her right side and complains of pain over the entirety of her right upper/lower extremity in chest abdomen pelvis. She reports hitting her head but denies loss of consciousness. She reports that she has been otherwise doing okay recently. Related Data Home Medications ?Medication ?Instructions ?Recorded ?Confirmed apixaban 5 mg tablet (Eliquis) 5 mg PO BID 09/27/23 04/03/24 bisoprolol fumarate 10 mg tablet 10 mg PO DAILY 09/27/23 04/03/24 empagliflozin 10 mg tablet 10 mg PO DAILY 09/27/23 04/04/24 (Jardiance) famotidine 20 mg tablet 20 mg PO BID 09/27/23 04/03/24 fentanyl 25 mcg/hr transdermal 25 mcg transdermal Q72H 09/27/23 04/03/24 patch gabapentin 600 mg tablet 600 mg PO QID 09/27/23 04/03/24 hydroxychloroquine 200 mg tablet 200 mg PO BID 09/27/23 04/03/24 insulin aspart U-100 100 unit/mL 10 unit SQ DAILYP PRN Hyperglycemia 09/27/23 04/03/24 (3 mL) subcutaneous pen (Novolog FlexPen U-100 Insulin aspart) insulin glargine 100 unit/mL 35 unit SQ HS 09/27/23 04/03/24 subcutaneous solution (Lantus U-100 Insulin) pantoprazole 40 mg tablet,delayed 40 mg PO BID 09/27/23 04/03/24 release acetaminophen 500 mg tablet 500 mg PO BIDP PRN Pain 09/28/23 04/03/24 melatonin 3 mg tablet 3 mg PO HS 09/28/23 04/03/24 polyethylene glycol 3350 17 gram 17 g PO BID PRN Constipation 09/28/23 04/03/24 oral powder packet alprazolam 0.5 mg tablet 0.5 mg PO TID PRN Anxiety 03/19/24 04/04/24 escitalopram oxalate 5 mg tablet 5 mg PO DAILY 04/03/24 04/03/24 furosemide 80 mg tablet 80 mg PO MOWEFR 04/03/24 04/04/24 oxycodone 10 mg tablet 10 mg PO QID PRN Moderate Pain 04/03/24 04/03/24 (Scale Score 5-6) Previous Rx's ?Medication ?Instructions ?Recorded cefdinir 300 mg capsule 300 mg PO BID 5 days #10 caps 04/04/24 nystatin 100,000 unit/gram topical 1 applic topical QID 10 days #60 04/05/24 cream grams nitrofurantoin macrocrystal 100 mg 100 mg PO BID 5 days #10 caps 04/20/24 capsule Allergies Allergy/AdvReac Type Severity Reaction Status Date / Time amitriptyline [From Elavil] Allergy Severe N-WORZYM-QXBT/THROAT; Verified 03/19/24 14:25 SEIZURES chlorpromazine Allergy Severe SEIZURES Verified 03/19/24 14:25 [From Thorazine] dichloralphenazone Allergy Severe S-SWELLS-OR Verified 03/19/24 14:25 [From Midrin] AL/THROAT isometheptene [From Midrin] Allergy Severe S-SWELLS-OR Verified 03/19/24 14:25 AL/THROAT prochlorperazine Allergy Severe SEIZURES Verified 03/19/24 14:25 [From Compazine] adhesive tape Allergy Intermediate I-RASH Verified 03/19/24 14:25 aspirin Allergy Intermediate COLD Verified 08/11/23 14:29 SWEATS , N/V cyclobenzaprine Allergy Unknown Unknown Verified 08/11/23 14:29 [From FLEXERIL] allergy reaction duloxetine [DULOXETINE] Allergy Unknown Unknown Verified 08/11/23 14:29 allergy reaction Iodinated Contrast Media Allergy Unknown Unknown Verified 08/11/23 14:29 [IODINATED CONTRAST MEDIA - allergy ORAL AND] reaction Sulfa (Sulfonamide Allergy Unknown CONTRAINDICATED Verified 03/19/24 14:25 Antibiotics) WITH ASTHMA trimethoprim [TRIMETHOPRIM] Allergy Unknown Unknown Verified 03/19/24 14:25 allergy reaction leflunomide Allergy rash, Verified 03/19/24 14:25 redness Macrolide Antibiotics Allergy rash, Verified 03/19/24 14:25 redness Beta-Blockers AdvReac Severe MAKES Verified 03/19/24 14:25 (Beta-Adrenergic Bloc ASTHMA WORSE caffeine [From Cafergot] AdvReac Mild NA-NAUSEA Verified 03/19/24 14:25 ergotamine [From Cafergot] AdvReac Mild NA-NAUSEA Verified 03/19/24 14:25 pregabalin [From Lyrica] AdvReac Mild TOO Verified 03/19/24 14:25 SEDATED NSAIDS (Non-Steroidal AdvReac Unknown Verified 03/19/24 14:25 Anti-Inflamma allergy reaction PFSH PFS Disclaimer: The information contained in this section may have been updated after the patient was seen, as this information can be updated by other users. Medical History Frequent headaches CKD (chronic kidney disease) stage 3, GFR 30-59 ml/min Dysphagia Pacemaker CVA (cerebral vascular accident) Chronic narcotic use Severe sleep apnea Obese Diabetic neuropathy Hypertension Polypharmacy GERD (gastroesophageal reflux disease) Diabetes Chronic pain disorder Degenerative joint disease (DJD) of lumbar spine Lumbosacral radiculopathy due to degenerative joint disease of spine Surgical History H/O: hysterectomy History of carpal tunnel surgery History of spinal surgery History of colon resection Family History Other Diabetes Social History (Updated 04/03/24 @ 23:34 by Margaret Solitario RN) Smoking Status: Never smoker second hand exposure: No alcohol intake: never substance use type: denies use current occupational status: disabled Travel in the last 8 weeks: None household members: spouse housing: other number of children: 3 current occupational exposures/hazards: No caffeine: Yes ROS Obtained: Yes All systems reviewed & no additional complaints except as documented Physical Exam General General appearance: alert and obese Comment: Uncomfortable appearing Head Head exam: atraumatic and normocephalic Eye Eye exam: Present normal appearance, PERRL and EOMI ENT ENT exam: Present normal oropharynx and normal external ear exam Neck Neck exam: Present normal inspection and full ROM; Absent tenderness Chest Chest inspection: Present normal inspection, symmetric chest wall rise and tenderness (Diffuse) Respiratory Respiratory exam: Present normal lung sounds bilaterally; Absent respiratory distress Cardiovascular Cardiovascular exam: Present regular rate and normal rhythm Abdominal Exam Abdominal exam: Present soft and tenderness (Diffuse); Absent distention or guarding Extremities Exam Extremities exam: Present other (Tenderness to palpation of the entire right upper and right lower extremity, normal neurovascular exam, tenderness to the left shoulder) Back Exam Back exam: Present normal inspection and tenderness (Generalized) Neurological Exam Neurological exam: Present alert and oriented X3; Absent motor sensory deficit Psychiatric Psychiatric exam: Present anxious Skin Skin exam: Present warm, dry and normal color Lymphatic Lymphatic Findings: no adenopathy Medical Decision Making Medical Records Medical records reviewed: Yes I reviewed the patient's medical records. Abraham Inquiry Pt receiving controlled substance: No Abraham was queried for this patient: No Vital Signs: 04/26/24 02:40 04/26/24 03:00 04/26/24 04:11 Temperature 98.3 F Temperature Source Oral Pulse Rate 75 75 Pulse Rate [Left Radial] 75 Respiratory Rate 19 12 14 Blood Pressure 144/72 H 150/79 H Blood Pressure [Right Arm] 132/76 Blood Pressure Mean 96 102 Blood Pressure Mean [Right Arm] 94 Blood Pressure Source [Right Arm] Automatic Cuff Blood Pressure Position [Right Arm] Sitting 02 Sat by Pulse Oximetry 97 99 98 Oxygen Delivery Method Nasal Cannula Nasal Cannula Nasal Cannula Oxygen Flow Rate (LPM) 3 3 2 04/26/24 04:30 04/26/24 05:00 Temperature Temperature Source Pulse Rate 73 Pulse Rate [Left Radial] Respiratory Rate 13 11 L Blood Pressure 148/80 H 140/76 Blood Pressure [Right Arm] Blood Pressure Mean 98 97 Blood Pressure Mean [Right Arm] Blood Pressure Source [Right Arm] Blood Pressure Position [Right Arm] 02 Sat by Pulse Oximetry 98 100 Oxygen Delivery Method Nasal Cannula Nasal Cannula Oxygen Flow Rate (LPM) 2 2 Lab Data Lab results reviewed: Yes I reviewed the patient's lab results. Lab Results 04/26/24 02:45: WBC 5.0, RBC 2.98 L, Hgb 8.3 L, Hct 29.3 L, MCV 98.5, MCH 27.9, MCHC 28.3 L, RDW 20.5 H, Plt Count 152, MPV 9.5, Neut % (Auto) 63.6, Lymph % (Auto) 20.1, [place] % (Auto) 4.8, Eos % (Auto) 11.1, Baso % (Auto) 0.5, Neut # (Auto) 3.2, Lymph # (Auto) 1.0, [place] # (Auto) 0.2, Eos # (Auto) 0.6 H, Baso # (Auto) 0.0, PT 13.3 H, INR 1.21 H, Sodium 141, Potassium 4.1, Chloride 103, Carbon Dioxide 35 H, Anion Gap 7.1, BUN 28 H, Creatinine 1.60 H, Estimated Creat Clear 51, Estimated GFR 31 L, Est GFR ( Amer) 38 L, Glucose 174 H, Calcium 8.4, Total Bilirubin 0.6, AST 32, ALT 16, Alkaline Phosphatase 102, Total Protein 6.3, Albumin 3.5, Globulin 2.8, Albumin/Globulin Ratio 1.3 04/26/24 02:45 04/26/24 02:45 Orders (Tests/Meds): ED MEDICATIONS Generic Name Dose Route Start Last Admin Trade Name Freq PRN Reason Stop Dose Admin Oxycodone HCl 10 mg 04/26/24 09:00 04/26/24 05:17 Oxycodone 10mg Extended Release Tab.Er.12h PO 05/26/24 08:59 10 mg BID DENISE Administration ORDERS Category Date Time Status CT abdomen pelvis wo con Stat Cat Scan 04/26/24 02:[address] cervical spine wo con Stat Cat Scan 04/26/24 02:[address] chest wo con Stat Cat Scan 04/26/24 02:[address] head/brain wo con Stat Cat Scan 04/26/24 02:[address] lumbar spine wo con Stat Cat Scan 04/26/24 02:[address] thoracic spine wo con Stat Cat Scan 04/26/24 02:42 Completed Ankle XR -Right minimum 3 Views [XR ankle RT min 3V] Exams 04/26/24 02:41 Completed Stat Elbow XR right minimum 3 views [XR elbow RT min 3V] Exams 04/26/24 02:41 Completed Stat Foot XR right minimum 3 views [XR foot RT min 3V] Stat Exams 04/26/24 02:41 Completed Forearm XR right 2 views [XR forearm RT 2V] Stat Exams 04/26/24 02:41 Completed Hand XR right 2 views [XR hand RT 2V] Stat Exams 04/26/24 02:41 Completed Humerus XR right [XR humerus RT] Stat Exams 04/26/24 02:41 Completed Knee XR right 3 views [XR knee RT 3V] Stat Exams 04/26/24 02:41 Completed Shoulder XR left minimum 2 views [XR shoulder LT min 2V Exams 04/26/24 02:45 Completed ] Stat Shoulder XR right miminum 2 views [XR shoulder RT min Exams 04/26/24 02:41 Completed 2V] Stat Tibia/fibula XR right 2 views [XR tibia fibula RT 2V] Exams 04/26/24 02:41 Completed Stat XR femur RT 2V Stat Exams 04/26/24 02:41 Completed XR hip RT 2-3V w/pelvis Stat Exams 04/26/24 02:41 Completed CBC w/Auto Diff [Complete Blood Count Auto Diff] Stat Lab 04/26/24 02:45 Completed CMP [Comprehensive Metabolic Panel] Stat Lab 04/26/24 02:45 Completed INR [Prothrombin Time INR] Stat Lab 04/26/24 02:45 Completed Medical Decision Narrative: 78-year-old female with history of chronic hypoxic respiratory failure, CKD, diabetes, heart failure, chronic narcotic use, chronic mobility presents after she fell onto her right side while trying to get up out of her bed. History was obtained via interactive discussion with patient, EMS, family, chart review. On arrival, patient is afebrile, hemoglobin stable, satting appropriately on home nasal cannula. Full physical exam performed and significant for diffuse tenderness over the right side of the body as well as the chest abdomen and pelvis. Differential includes but is not limited to intracranial trauma intrathoracic, intra-abdominal trauma spine, extremity trauma. Workup initiated including CBC CMP INR full Noncon CT scans, radiographs of the right upper and right lower extremity as well as the left shoulder. On re-evaluation, patient [remains afebrile, HD stable.] Laboratory workup independently interpreted by me and significant for stable anemia, stable renal function, no significant electrolyte derangement. Imaging independently interpreted by me and significant for no evidence of intracranial bleeding, acute spinal fracture, thoracic or intra-abdominal trauma. Radiographs of the extremities show a proximal transverse fracture of the right fibula as well as a spiral fracture of the distal fibula. See radiology read for full review of final results. Given patient history, exam and workup, patient's presentation most likely represents acute traumatic fracture of the proximal and distal right fibula. This is concerning for syndesmotic injury. Patient is not supposed to be ambulatory at baseline and is on hospice care. Patient was placed in a posterior short leg splint with stirrups and discharged in stable condition with instructions to follow-up with hospice and orthopedics for further assessment. She is already on anticoagulation which should cover risk for DVT. Procedures Risk/Benefits of Procedure(s) Were Explained: Yes Orthopedic Splinting/Casting Injury #1: Side: right Lower Extremity Injury Location: lower leg Lower Extremity Immobilizer: posterior splint and stirrup splint Additional Comments: Applied by me at bedside Post Cast/Splinting Neuro Status: intact Post Cast/Splinting Vasc Status: intact Critical Care Critical Care Time Critical Care Time: No
[2024-04-26 02:58] LABS: Basophils % 0.5 % (0.1-2.0); Eosinophils # 0.6 K/mm3 (0.0-0.4); Eosinophils % 11.1 % (0.1-12.0); Hematocrit 29.3 % (37.0-47.0); Hemoglobin 8.3 g/dL (12.2-16.2); Lymphocytes % 20.1 % (10-50); Mean Corpuscular HGB Conc 28.3 g/dL (31.8-35.4); Mean Corpuscular Hemoglobin 27.9 pg (27.0-31.2); Mean Corpuscular Volume 98.5 fl (81-99); Mean Platelet Volume 9.5 fl (7.4-10.4); Monocytes # 0.2 K/mm3 (0.1-1.0); Monocytes % 4.8 % (1.7-9.3); Neutrophils # 3.2 K/mm3 (1.8-7.8); Neutrophils % 63.6 % (37.0-80.0); Platelet Count 152 K/mm3 (142-424); Red Blood Count 2.98 M/mm3 (4.20-5.40); Red Cell Distribution Width 20.5 % (11.5-17.5)
[2024-04-26 03:00] VITALS: BP 144/72; PULSE 75; RESP 12; O2SAT 99
[2024-04-26 03:05] LABS: Chloride 103 mmol/L (98-107); Potassium 4.1 mmoL/L (3.5-5.1); Sodium 141 mmol/L (136-145)
[2024-04-26 03:07] LABS: Alanine Aminotransferase 16 U/L (12-78); Aspartate Amino Transferase 32 U/L (14-36); Blood Urea Nitrogen 28 mg/dl (7-17); Creatinine Clearance Estimated 51 mL/min (50-200); Estimated Glomerular Filt Rate 31 ml/min (>60); GFR (African American) 38 ML/MIN (>60)
[2024-04-26 03:08] LABS: Albumin Level 3.5 g/dl (3.5-5.0); Albumin/Globulin Ratio 1.3 (1.1-1.8); Alkaline Phosphatase 102 U/L (38-126); Anion Gap 7.1 mEq/L (5-15); Bilirubin,Total 0.6 mg/dl (0.2-1.3); Calcium 8.4 mg/dl (8.4-10.2); Carbon Dioxide 35 mmol/L (22.0-30.0); Globulin 2.8 g/dL (1.3-3.2); Glucose 174 mg/dl (74-100); Total Protein,Serum 6.3 g/dl (6.3-8.2)
[2024-04-26 03:09] LABS: INR 1.21 (0.9-1.1); Prothrombin Time 13.3 seconds (10.1-12.5)
[2024-04-26 04:11] VITALS: BP 150/79; PULSE 75; RESP 14; O2SAT 98
[2024-04-26 04:30] VITALS: BP 148/80; PULSE 73; RESP 13; O2SAT 98
[2024-04-26 05:00] VITALS: BP 140/76; RESP 11; O2SAT 100
[2024-04-26] MEDS: OXYCODONE 10MG EXTENDED RELEASE TAB.ER.12H 10 MG PO (05:17)
[2024-04-26 05:20] VITALS: BP 140/76; PULSE 70; RESP 18; TEMP 36.7; O2SAT 99
== END 2024-04-26 05:48 | disposition home or self-care (01) ==
PROVIDERS: Emergency Provider Emergency Medicine
DX: S82.831A Other fracture of upper and lower end of right fibula, initial encounter for closed fracture (principal); R07.89 Other chest pain; R10.817 Generalized abdominal tenderness; M79.601 Pain in right arm; W18.30XA Fall on same level, unspecified, initial encounter
CPT/HCPCS: 29515; 70450; 71250; 72125; 72128; 72131; 73030; 73060; 73080; 73090; 73120; 73502; 73552; 73562; 73590; 73610; 73630; 74176; 80053; 85025; 85610; 99285

== ENCOUNTER 2024-04-29 20:12 | Emergency (ER) | payer OTHER, SELFPAY ==
--- NOTE | 2024-04-29 20:14 | XR_ITS ---
PROCEDURE INFORMATION: Exam: XR Chest Exam date and time: 04/29/2024 8:13 PM Age: 78 years old Clinical indication: Other: Altered mental status TECHNIQUE: Imaging protocol: Radiologic exam of the chest. Views: 1 view. COMPARISON: CT CHEST WO CON 04/26/2024 3:24 AM FINDINGS: Lungs: Low lung volumes with mild bibasilar atelectasis. Mild pulmonary vascular congestion. Pleural spaces: Normal. No pleural effusion. No pneumothorax. Heart/Mediastinum: Cardiomegaly. Left chest wall pacemaker in place with lead tips extending to the right atrium and right ventricle. Bones/joints: Unremarkable. IMPRESSION: 1. Cardiomegaly and mild pulmonary vascular congestion. 2. No evidence of pulmonary edema. 3. Low lung volumes.
[2024-04-29 20:17] VITALS: BP 116/48; PULSE 74; RESP 16; TEMP 37.2; O2SAT 98; BMI 42.4
[2024-04-29 20:30] VITALS: BP 106/60; PULSE 76; RESP 11; O2SAT 100
--- NOTE | 2024-04-29 20:30 | ECG_ITS ---
APPROVED REPORT Exam: Resting ECG HR:76 bpm ECG Measurements Heart Rate 76 AXES QRSd 227 QRS -68 QT 501 T 97 QTc 531 Conclusion ELECTRONIC VENTRICULAR PACEMAKER widened qrs Electronically signed by : RAGHU ADDISON, 04/29/2024 21:33:31
[2024-04-29 20:50] LABS: Microscopic, Urine URINE MICROSCOPIC (MICROSCOPIC)
[2024-04-29 20:52] LABS: Bilirubin,Urine Negative (Negative); Blood, Urine 2+ (Negative); Color,Urine YELLOW (Yellow); Glucose,Urine (UA) Negative (Negative); Ketones,Urine Negative (Negative); Leukocyte Esterase,Urine 2+ (Negative); Nitrate,Urine Negative (Negative); Protein,Urine 2+ (Negative); Specific Gravity, Urine >= 1.030 (1.005-1.030); Urobilinogen,Urine 0.2 EU/dl (0.2)
[2024-04-29 20:56] LABS: Appearance,Urine Slightly Cloudy (Clear)
[2024-04-29 21:01] VITALS: BP 122/58; PULSE 76; RESP 9; O2SAT 98
[2024-04-29 21:06] LABS: Basophils % 0.4 % (0.1-2.0); Eosinophils # 0.5 K/mm3 (0.0-0.4); Eosinophils % 9.8 % (0.1-12.0); Hematocrit 26.6 % (37.0-47.0); Hemoglobin 7.7 g/dL (12.2-16.2); Lymphocytes # 0.8 K/mm3 (0.7-4.5); Lymphocytes % 15.9 % (10-50); Mean Corpuscular HGB Conc 28.9 g/dL (31.8-35.4); Mean Corpuscular Hemoglobin 28.7 pg (27.0-31.2); Mean Corpuscular Volume 99.2 fl (81-99); Mean Platelet Volume 10.2 fl (7.4-10.4); Monocytes # 0.2 K/mm3 (0.1-1.0); Monocytes % 5.1 % (1.7-9.3); Neutrophils # 3.3 K/mm3 (1.8-7.8); Neutrophils % 68.8 % (37.0-80.0); Platelet Count 130 K/mm3 (142-424); Red Blood Count 2.68 M/mm3 (4.20-5.40); Red Cell Distribution Width 20.2 % (11.5-17.5); White Blood Count 4.8 K/mm3 (4.8-10.8)
[2024-04-29 21:08] LABS: Bacteria,Urine Trace /lpf
[2024-04-29 21:13] LABS: Albumin Level 3.2 g/dl (3.5-5.0); Chloride 105 mmol/L (98-107); Potassium 3.8 mmoL/L (3.5-5.1); Sodium 141 mmol/L (136-145)
[2024-04-29 21:15] LABS: Blood Urea Nitrogen 41 mg/dl (7-17); Creatinine Clearance Estimated 24 mL/min (50-200); Estimated Glomerular Filt Rate 27 ml/min (>60); GFR (African American) 33 ML/MIN (>60)
[2024-04-29 21:16] LABS: Alanine Aminotransferase 12 U/L (12-78); Albumin/Globulin Ratio 1.3 (1.1-1.8); Alkaline Phosphatase 93 U/L (38-126); Anion Gap 7.8 mEq/L (5-15); Aspartate Amino Transferase 28 U/L (14-36); Bilirubin,Total 0.6 mg/dl (0.2-1.3); Calcium 8.4 mg/dl (8.4-10.2); Carbon Dioxide 32 mmol/L (22.0-30.0); Globulin 2.5 g/dL (1.3-3.2); Glucose 107 mg/dl (74-100); Total Protein,Serum 5.7 g/dl (6.3-8.2)
--- NOTE | 2024-04-29 21:22 | HMH.EDGENADL ---
Discharge Plan Disposition Patient Disposition: Home, Self-Care Condition: Good Prescriptions Prescriptions: New fosfomycin tromethamine 3 gram packet 3 g PO Q3D Qty: 3 0RF No Action alprazolam 0.5 mg tablet 0.5 mg PO TID PRN (Reason: Anxiety) furosemide 80 mg tablet 80 mg PO Rx Instructions: once daily every tuesday, tuesday, and tuesday escitalopram oxalate 5 mg tablet 5 mg PO DAILY Rx Instructions: TAKE 1 TABLET BY MOUTH IN THE MORNING oxycodone 10 mg tablet 10 mg PO QID PRN (Reason: Moderate Pain (Scale Score 5-6)) cefdinir 300 mg capsule 300 mg PO BID 5 Days Qty: 10 0RF nystatin 100,000 unit/gram Cream 1 applic topical QID 10 Days Qty: 60 0RF nitrofurantoin macrocrystal 100 mg capsule 100 mg PO BID 5 Days Qty: 10 0RF Rx Instructions: must administer with a meal/food gabapentin 600 mg tablet 600 mg PO QID insulin glargine [Lantus U-100 Insulin] 100 unit/mL solution 35 unit SQ HS bisoprolol fumarate 10 mg tablet 10 mg PO DAILY famotidine 20 mg tablet 20 mg PO BID pantoprazole 40 mg tablet,delayed release (DR/EC) 40 mg PO BID hydroxychloroquine 200 mg tablet 200 mg PO BID fentanyl 25 mcg/hr patch 72 hour 25 mcg transdermal Q72H insulin aspart U-100 [Novolog FlexPen U-100 Insulin] 100 unit/mL (3 mL) insulin pen 10 unit SQ DAILYP PRN (Reason: Hyperglycemia) Eliquis 5 mg tablet 5 mg PO BID Jardiance 10 mg tablet 10 mg PO DAILY polyethylene glycol 3350 17 gram Powder In Packet 17 g PO BID PRN (Reason: Constipation) melatonin 3 mg Tablet 3 mg PO HS acetaminophen 500 mg Tablet 500 mg PO BIDP PRN (Reason: Pain) Referrals Follow up/Referrals: Geovany Medel MD [Primary Care Provider] - See instructions Activity Restrictions/Add. Instructions Additional Instructions/Restrictions: Take fosfomycin as prescribed for UTI and follow closely with your primary care provider and hospice for continued management. Return for any new or worsening symptoms. Clinical Impressions Clinical Impression: Acute UTI Instructions Patient Instructions: DI for Altered Mental Status, DI for Urinary Tract Infection (UTI) Print Language Print Language: Lithuanian Discharge ED Provider: Ania Mcmahan General Adult HPI General Chief complaint: Altered Mental Status Stated complaint: altered mental status, possible uti Time Seen by Provider: 04/29/24 20:13 Mode of Arrival: EMS Source of Information: Patient and EMS Limitations: No Limitations Description of Symptoms (Recalled from ER Triage Doc. by RN): Pt reportst to ED via EMS. EMS states they were called by pt's who reported pt was altered more than her normal. Upon arivval to scene EMS states that stated symptoms had been going on for a week. Upon arrival to ED pt states not feeling well . Pt is drowsy oreinted to person and time but intermittently confusion while answering questions. Pt states that she is a hospice pt. History of Present Illness HPI narrative: Patient is a 78-year-old female with past medical history diabetes, GERD, hypertension, CKD, CHF, RA, depression presenting with concern for altered mental status and not feeling well. Patient presents via EMS who states that they were called by the patient's who was concerned that she was more altered than her baseline. Reportedly this has been going on for 1 week and was not an acute change today, EMS stroke assessment was negative. She was recently seen about 1 week ago and found to have a fibular fracture for which her right lower extremity is in a splint. She states that she has not been feeling well and states that she feels generally weak but no specific concern, denies abdominal pain, chest pain, shortness of breath. She is on hospice and states that her and son predominantly care for her. She is on Eliquis as well. Related Data Home Medications ?Medication ?Instructions ?Recorded ?Confirmed apixaban 5 mg tablet (Eliquis) 5 mg PO BID 09/27/23 04/03/24 bisoprolol fumarate 10 mg tablet 10 mg PO DAILY 09/27/23 04/03/24 empagliflozin 10 mg tablet 10 mg PO DAILY 09/27/23 04/04/24 (Jardiance) famotidine 20 mg tablet 20 mg PO BID 09/27/23 04/03/24 fentanyl 25 mcg/hr transdermal 25 mcg transdermal Q72H 09/27/23 04/03/24 patch gabapentin 600 mg tablet 600 mg PO QID 09/27/23 04/03/24 hydroxychloroquine 200 mg tablet 200 mg PO BID 09/27/23 04/03/24 insulin aspart U-100 100 unit/mL 10 unit SQ DAILYP PRN Hyperglycemia 09/27/23 04/03/24 (3 mL) subcutaneous pen (Novolog FlexPen U-100 Insulin aspart) insulin glargine 100 unit/mL 35 unit SQ HS 09/27/23 04/03/24 subcutaneous solution (Lantus U-100 Insulin) pantoprazole 40 mg tablet,delayed 40 mg PO BID 09/27/23 04/03/24 release acetaminophen 500 mg tablet 500 mg PO BIDP PRN Pain 09/28/23 04/03/24 melatonin 3 mg tablet 3 mg PO HS 09/28/23 04/03/24 polyethylene glycol 3350 17 gram 17 g PO BID PRN Constipation 09/28/23 04/03/24 oral powder packet alprazolam 0.5 mg tablet 0.5 mg PO TID PRN Anxiety 03/19/24 04/04/24 escitalopram oxalate 5 mg tablet 5 mg PO DAILY 04/03/24 04/03/24 furosemide 80 mg tablet 80 mg PO MOWEFR 04/03/24 04/04/24 oxycodone 10 mg tablet 10 mg PO QID PRN Moderate Pain 04/03/24 04/03/24 (Scale Score 5-6) Previous Rx's ?Medication ?Instructions ?Recorded cefdinir 300 mg capsule 300 mg PO BID 5 days #10 caps 04/04/24 nystatin 100,000 unit/gram topical 1 applic topical QID 10 days #60 04/05/24 cream grams nitrofurantoin macrocrystal 100 mg 100 mg PO BID 5 days #10 caps 04/20/24 capsule fosfomycin tromethamine 3 gram 3 g PO Q3D 3 doses #3 ea 04/29/24 oral packet Allergies Allergy/AdvReac Type Severity Reaction Status Date / Time amitriptyline [From Elavil] Allergy Severe [id number]/THROAT; Verified 03/19/24 14:25 SEIZURES chlorpromazine Allergy Severe SEIZURES Verified 03/19/24 14:25 [From Thorazine] dichloralphenazone Allergy Severe S-SWELLS-OR Verified 03/19/24 14:25 [From Midrin] AL/THROAT isometheptene [From Midrin] Allergy Severe S-SWELLS-OR Verified 03/19/24 14:25 AL/THROAT prochlorperazine Allergy Severe SEIZURES Verified 03/19/24 14:25 [From Compazine] adhesive tape Allergy Intermediate I-RASH Verified 03/19/24 14:25 aspirin Allergy Intermediate COLD Verified 08/11/23 14:29 SWEATS , N/V cyclobenzaprine Allergy Unknown Unknown Verified 08/11/23 14:29 [From FLEXERIL] allergy reaction duloxetine [DULOXETINE] Allergy Unknown Unknown Verified 08/11/23 14:29 allergy reaction Iodinated Contrast Media Allergy Unknown Unknown Verified 08/11/23 14:29 [IODINATED CONTRAST MEDIA - allergy ORAL AND] reaction Sulfa (Sulfonamide Allergy Unknown CONTRAINDICATED Verified 03/19/24 14:25 Antibiotics) WITH ASTHMA trimethoprim [TRIMETHOPRIM] Allergy Unknown Unknown Verified 03/19/24 14:25 allergy reaction leflunomide Allergy rash, Verified 03/19/24 14:25 redness Macrolide Antibiotics Allergy rash, Verified 03/19/24 14:25 redness Beta-Blockers AdvReac Severe MAKES Verified 03/19/24 14:25 (Beta-Adrenergic Bloc ASTHMA WORSE caffeine [From Cafergot] AdvReac Mild NA-NAUSEA Verified 03/19/24 14:25 ergotamine [From Cafergot] AdvReac Mild NA-NAUSEA Verified 03/19/24 14:25 pregabalin [From Lyrica] AdvReac Mild TOO Verified 03/19/24 14:25 SEDATED NSAIDS (Non-Steroidal AdvReac Unknown Verified 03/19/24 14:25 Anti-Inflamma allergy reaction PFSH PFSH Disclaimer: The information contained in this section may have been updated after the patient was seen, as this information can be updated by other users. Medical History Frequent headaches CKD (chronic kidney disease) stage 3, GFR 30-59 ml/min Dysphagia Pacemaker CVA (cerebral vascular accident) Chronic narcotic use Severe sleep apnea Obese Diabetic neuropathy Hypertension Polypharmacy GERD (gastroesophageal reflux disease) Diabetes Chronic pain disorder Degenerative joint disease (DJD) of lumbar spine Lumbosacral radiculopathy due to degenerative joint disease of spine Surgical History H/O: hysterectomy History of carpal tunnel surgery History of spinal surgery History of colon resection Family History Other Diabetes Social History (Updated 04/03/24 @ 23:34 by Margaret Solitario RN) Smoking Status: Never smoker second hand exposure: No alcohol intake: never substance use type: denies use current occupational status: disabled Travel in the last 8 weeks: None household members: spouse housing: other number of children: 3 current occupational exposures/hazards: No caffeine: Yes ROS Obtained: Yes Systems reviewed as appropriate & no additional complaints except as documented Physical Exam General General appearance: alert (She does appear sleepy but answers all questions appropriately) and in no apparent distress Head Head exam: atraumatic and normocephalic Eye Eye exam: Present PERRL and EOMI Chest Chest inspection: Present normal inspection and symmetric chest wall rise Respiratory Respiratory exam: Present normal lung sounds bilaterally; Absent respiratory distress Cardiovascular Cardiovascular exam: Present normal rhythm and Pacemaker w/paced rhythm Abdominal Exam Abdominal exam: Present soft; Absent distention or tenderness Extremities Exam Extremities exam: Present normal inspection and other (Right lower extremity in splint, able to wiggle toes and cap refill normal bilateral toes, sensation intact bilateral lower extremities and weak but strength is 4-5 bilateral upper extremities and sensation intact bilateral upper extremities) Neurological Exam Neurological exam: Present alert and oriented X3 Skin Skin exam: Present warm and dry Medical Decision Making Medical Records Medical records reviewed: Yes I reviewed the patient's medical records. Abraham Inquiry Pt receiving controlled substance: No Abraham was queried for this patient: No Vital Signs: 04/29/24 20:17 04/29/24 20:30 04/29/24 21:01 Temperature 99.0 F Temperature Source Oral Pulse Rate 76 76 Pulse Rate [Left Radial] 74 Respiratory Rate 16 11 L 9 L Blood Pressure 106/60 L 122/58 L Blood Pressure [Right Arm] 116/48 L Blood Pressure Mean [Right Arm] 70 Blood Pressure Source [Right Arm] Automatic Cuff 02 Sat by Pulse Oximetry 98 100 98 Oxygen Delivery Method Nasal Cannula Oxygen Flow Rate (LPM) 3 04/29/24 21:31 Temperature Temperature Source Pulse Rate 70 Pulse Rate [Left Radial] Respiratory Rate 12 Blood Pressure 107/49 L Blood Pressure [Right Arm] Blood Pressure Mean [Right Arm] Blood Pressure Source [Right Arm] 02 Sat by Pulse Oximetry 100 Oxygen Delivery Method Oxygen Flow Rate (LPM) Lab Data Lab Results 04/29/24 20:46: Urine Color Yellow, Urine Appearance Slightly cloudy, Urine pH 6.0, Ur Specific [place] >= 1.030, Urine Protein 2+, Urine Glucose (UA) Negative, Urine Ketones Negative, Urine Blood 2+, Urine Nitrate Negative, Urine Bilirubin Negative, Urine Urobilinogen 0.2, Ur Leukocyte Esterase 2+ A, Urine RBC 10-20, Urine WBC 10-20, Ur Squamous Epith Cells 3-5, Urine Bacteria Trace 04/29/24 21:00: WBC 4.8, RBC 2.68 L, Hgb 7.7 L, Hct 26.6 L, MCV 99.2 H, MCH 28.7, MCHC 28.9 L, RDW 20.2 H, Plt Count 130 L, MPV 10.2, Neut % (Auto) 68.8, Lymph % (Auto) 15.9, [place] % (Auto) 5.1, Eos % (Auto) 9.8, Baso % (Auto) 0.4, Neut # (Auto) 3.3, Lymph # (Auto) 0.8, [place] # (Auto) 0.2, Eos # (Auto) 0.5 H, Baso # (Auto) 0.0, Sodium 141, Potassium 3.8, Chloride 105, Carbon Dioxide 32 H, Anion Gap 7.8, BUN 41 H, Creatinine 1.80 H, Estimated Creat Clear 24, Estimated GFR 27 L, Est GFR ( Amer) 33 L, Glucose 107 H, Calcium 8.4, Total Bilirubin 0.6, AST 28, ALT 12, Alkaline Phosphatase 93, Troponin I 0.03, Total Protein 5.7 L, Albumin 3.2 L, Globulin 2.5, Albumin/Globulin Ratio 1.3 04/29/24 21:00 04/29/24 21:00 Orders (Tests/Meds): ED MEDICATIONS Generic Name Dose Route Start Last Admin Trade Name Freq PRN Reason Stop Dose Admin Sodium Chloride 10 ml 04/29/24 20:14 Sodium Chloride 0.9% 10ml Flush Syringe IV 05/29/24 20:13 NEEDED PRN Maintain IV Site Discontinued Medications Generic Name Dose Route Start Last Admin Trade Name Freq PRN Reason Stop Dose Admin Ceftriaxone Sodium 1 gm/ 50 mls @ 100 mls/hr 04/29/24 21:21 04/29/24 21:38 Sodium Chloride IV 04/29/24 21:50 100 mls/hr ONCE ONE Administration ORDERS Category Date Time Status XR chest portable Stat Exams 04/29/24 20:14 Completed Complete Blood Count Auto Diff Stat Lab 04/29/24 21:00 Completed Comprehensive Metabolic Panel Stat Lab 04/29/24 21:00 Completed Troponin I Stat Lab 04/29/24 21:00 Completed Urinalysis and Microscopic Stat Lab 04/29/24 20:46 Completed Urine Culture Stat Micro 04/29/24 20:46 Received ECG Request Stat Y 04/29/24 20:14 Ordered HEART Score History (anamnesis): Slightly suspicious ECG: Non-specific disturbance Age: >65 years Risk factors: Atherosclerosis history Troponin: </= normal limit HEART Score: 5 Medical Decision Narrative: Patient is a 78-year-old female with past medical history diabetes, CHF on 3 L nasal cannula chronically, CKD, RA, depression and frequent UTIs presenting with generalized malaise and concern for altered mental status per EMS from her at home. She is however at her baseline and is alert, oriented and GCS 15 and able to express that she has not been feeling well but is alert and oriented to person place and time. She does have the right lower extremity in a splint from recent fibula fracture. She has no physical complaints and exam is overall unremarkable except she is a chronically ill individual on 3 L nasal cannula which is her baseline, lung sounds with only a rare crackle bilaterally but otherwise no acute findings. Will obtain blood work for further evaluation. She also does notably have a chronic indwelling Huynh. EKG showing a paced ventricular rhythm without acute ischemia or infarction at a rate of 76 with prolonged QT performed at 2041 and read at the same time. CBC with chronic Anemia with hemoglobin of 7.7 and platelet count 130 but not requiring acute transfusion, CMP with creatinine 1.8 which is per baseline from the past several months on review, troponin negative at 0.03, chest x-ray showing chronic cardiomegaly and mild pulmonary edema but again patient not requiring any further oxygen requirement from her baseline and not in any respiratory distress. Urine is grossly infectious for which she was given dose of Rocephin while in the emergency department. Given chronic illness and chronic indwelling Huynh will prescribe fosfomycin to preferred pharmacy. This plan was discussed with patient and family at bedside who are agreeable with plan and will return home via EMS. Critical Care Critical Care Time Critical Care Time: No
[2024-04-29 21:28] LABS: Troponin I 0.03 ng/ml (0.00-0.034)
[2024-04-29 21:31] VITALS: BP 107/49; PULSE 70; RESP 12; O2SAT 100
[2024-04-29] MEDS: CEFTRIAXONE SODIUM 1 GM in 0.9 % SODIUM CHLORIDE 50 ML IV (21:38)
[2024-04-29 22:06] VITALS: BP 119/65; PULSE 76; RESP 18; TEMP 37.2; O2SAT 100
== END 2024-04-29 22:41 | disposition home or self-care (01) ==
PROVIDERS: Emergency Provider Emergency Medicine; PCP Internal Medicine
DX: N39.0 Urinary tract infection, site not specified (principal); R41.82 Altered mental status, unspecified; R53.81 Other malaise; E11.22 Type 2 diabetes mellitus with diabetic chronic kidney disease; N18.30 Chronic kidney disease, stage 3 unspecified; I11.0 Hypertensive heart disease with heart failure; I50.9 Heart failure, unspecified; K21.9 Gastro-esophageal reflux disease without esophagitis; M06.9 Rheumatoid arthritis, unspecified; Z79.4 Long term (current) use of insulin; Z79.84 Long term (current) use of oral hypoglycemic drugs
CPT/HCPCS: 71045; 80053; 81001; 84484; 85025; 87086; 93005; 96365; 99284; J0696

== ENCOUNTER 2024-05-15 08:13 | Inpatient (IN) | payer OTHER, SELFPAY ==
[2024-05-15] VITALS (16 sets, daily range): BP systolic 108–152; BP diastolic 43–107; PULSE 70–88; RESP 18–20; TEMP 36.8–37.4; O2SAT 94–100; BMI 33.3; BMI 36.3
--- NOTE | 2024-05-15 08:11 | PC.NURSE ---
Pt has arrived via EMS, taken to room 1. Bedside report received from Marysol DOMÍNGUEZ-P. Dr. John at bedside
--- NOTE | 2024-05-15 08:14 | PC.NURSE ---
DR MORTENSEN AT BEDSIDE
--- NOTE | 2024-05-15 08:16 | CT_ITS ---
FINAL REPORT TECHNIQUE: After the administration of oral and intravenous contrast, axial images were obtained through the abdomen and pelvis by computed tomography. The study was performed with techniques to keep radiation dose as low as reasonably achievable, (ALARA). Individual dose reduction techniques using automated exposure control or adjustment of mA and/or kV according to the patient's size were employed. CLINICAL HISTORY: R side abd pain, n/v uncontrollable COMPARISON: 04/26/2024 FINDINGS: There are moderate right and small left pleural effusions with bibasilar atelectasis. There is cardiomegaly. There is fatty infiltration of the liver. The liver has a nodular contour consistent with cirrhosis. The patient is status post cholecystectomy. There is borderline splenomegaly with spleen measuring 13.1 cm. The adrenals are normal. The pancreas is unremarkable. The kidneys enhance appropriately. The aorta is normal in caliber. There is no adenopathy. There is moderate ascites in the abdomen and pelvis, worse than previous. Note is made of moderate anasarca. The appendix is not identified. Postoperative changes are seen in the sigmoid colon. There is a Huynh catheter with air in the urinary bladder. Postoperative changes are seen near the superior bladder. Patient is status post hysterectomy. There is no adenopathy. IMPRESSION: Cirrhosis with portal hypertension. Worsening ascites. Reviewed, Interpreted and Dictated by Samuel Schneider III, MD Transcribed by Marti Jonas Authenticated and [facility]
--- NOTE | 2024-05-15 08:25 | ECG_ITS ---
APPROVED REPORT Exam: Resting ECG HR:80 bpm ECG Measurements Heart Rate 80 AXES QRSd 222 QRS -55 QT 505 T 128 QTc 541 Conclusion ELECTRONIC VENTRICULAR PACEMAKER ABNORMAL RHYTHM ECG No STEMI Electronically signed by : CLAUDE MORTENSEN, 05/16/2024 07:10:38
[2024-05-15 08:36] LABS: Basophils % 0.1 % (0.1-2.0); Eosinophils % 0.5 % (0.1-12.0); Hematocrit 33.3 % (37.0-47.0); Hemoglobin 9.6 g/dL (12.2-16.2); Lymphocytes # 0.5 K/mm3 (0.7-4.5); Lymphocytes % 7.4 % (10-50); Mean Corpuscular HGB Conc 28.7 g/dL (31.8-35.4); Mean Corpuscular Hemoglobin 28.5 pg (27.0-31.2); Mean Corpuscular Volume 99.1 fl (81-99); Mean Platelet Volume 9.7 fl (7.4-10.4); Monocytes # 0.2 K/mm3 (0.1-1.0); Monocytes % 3.3 % (1.7-9.3); Neutrophils # 6.4 K/mm3 (1.8-7.8); Neutrophils % 88.7 % (37.0-80.0); Platelet Count 219 K/mm3 (142-424); Red Blood Count 3.36 M/mm3 (4.20-5.40); White Blood Count 7.2 K/mm3 (4.8-10.8)
[2024-05-15] MEDS: LACTATED RINGERS 1000ML 1,000 ML 999 ML IV (08:37)
[2024-05-15] MEDS: MORPHINE 4MG/ML SYRINGE 6 MG IV (08:37)
[2024-05-15] MEDS: ONDANSETRON 4MG/2ML VIAL 4 MG IV ×2 (08:38→18:45)
[2024-05-15] MEDS: diphenhydrAMINE 50MG/ML VIAL 50 MG IV (08:38)
[2024-05-15 08:40] LABS: Microscopic, Urine URINE MICROSCOPIC (MICROSCOPIC)
--- NOTE | 2024-05-15 08:40 | PC.NURSE ---
As I was bringing medications for pt, she was laying back in bed and spitting out her vomit. It was very mocouid and
--- NOTE | 2024-05-15 08:40 | PC.NURSE ---
As I was bringing medications for pt, she was laying back in bed and spitting out her vomit. It was mucous-like with streaks of red. I sat pt up in bed and offered her an emesis bag while I prepared suction. Pt was able to clear her mouth of the emesis and I cleaned her face, chin, and neck of her fluids. Pt thanked me and said she felt better. Pt's is at bedside and said, now she can sit like that with her back she has to go slow . I educated pt and her spouse the reason for needing to sit up some d/t the collection of emesis in her mouth and she could aspirate. I educated pt & her spouse on the ordered medications of Dr. John for Morphine, LR fluids, zofran, and benadryl. Mr Espinosa stated, She has short memory problems so she won't remember that I need you to talk to me . I then re-explained the medications, reason for positioning the pt this way, and the orders of Dr. John. He asked if I was a nurse, I told him I was. He then asked if the doctor was that gentleman with the shorts on , I told him no that was not a doctor it was another visitor. I asked if he needed anything, he stated no I'm alright
--- NOTE | 2024-05-15 08:40 | HMH.EDGENADL ---
Discharge Plan Disposition Patient Disposition: Admitted Chief Complaint: Abdominal Pain Clinical Impressions Clinical Impression: Nausea & vomiting Discharge ED Provider: Avelino John General Adult HPI General Chief complaint: Abdominal Pain Stated complaint: N/V for 4 days, hospice pt Time Seen by Provider: 05/15/24 08:14 Mode of Arrival: EMS Source of Information: Patient and EMS Limitations: No Limitations Description of Symptoms (Recalled from ER Triage Doc. by RN): pt to ed c/o vomiting x4 days associated with abd pain. pt reports to being on hospice. History of Present Illness HPI narrative: 78-year-old female presents to the ER for complaints of nausea and vomiting for 4 days with associated abdominal pain. Patient is on hospice for multiple reasons including end-stage COPD. Patient states she has had multiple recent urinary tract infections and continues to be on an antibiotic, she believes it is amoxicillin. Patient still reports dysuria. Patient states she is not able to keep anything down including food. She denies fevers, chest pain, shortness of breath, or other associated symptoms. Related Data Home Medications ?Medication ?Instructions ?Recorded ?Confirmed apixaban 5 mg tablet (Eliquis) 5 mg PO BID 09/27/23 04/03/24 bisoprolol fumarate 10 mg tablet 10 mg PO DAILY 09/27/23 04/03/24 empagliflozin 10 mg tablet 10 mg PO DAILY 09/27/23 04/04/24 (Jardiance) famotidine 20 mg tablet 20 mg PO BID 09/27/23 04/03/24 fentanyl 25 mcg/hr transdermal 25 mcg transdermal Q72H 09/27/23 04/03/24 patch gabapentin 600 mg tablet 600 mg PO QID 09/27/23 04/03/24 hydroxychloroquine 200 mg tablet 200 mg PO BID 09/27/23 04/03/24 insulin aspart U-100 100 unit/mL 10 unit SQ DAILYP PRN Hyperglycemia 09/27/23 04/03/24 (3 mL) subcutaneous pen (Novolog FlexPen U-100 Insulin aspart) insulin glargine 100 unit/mL 35 unit SQ HS 09/27/23 04/03/24 subcutaneous solution (Lantus U-100 Insulin) pantoprazole 40 mg tablet,delayed 40 mg PO BID 09/27/23 04/03/24 release acetaminophen 500 mg tablet 500 mg PO BIDP PRN Pain 09/28/23 04/03/24 melatonin 3 mg tablet 3 mg PO HS 09/28/23 04/03/24 polyethylene glycol 3350 17 gram 17 g PO BID PRN Constipation 09/28/23 04/03/24 oral powder packet alprazolam 0.5 mg tablet 0.5 mg PO TID PRN Anxiety 03/19/24 04/04/24 escitalopram oxalate 5 mg tablet 5 mg PO DAILY 04/03/24 04/03/24 furosemide 80 mg tablet 80 mg PO MOWEFR 04/03/24 04/04/24 oxycodone 10 mg tablet 10 mg PO QID PRN Moderate Pain 04/03/24 04/03/24 (Scale Score 5-6) Previous Rx's ?Medication ?Instructions ?Recorded cefdinir 300 mg capsule 300 mg PO BID 5 days #10 caps 04/04/24 nystatin 100,000 unit/gram topical 1 applic topical QID 10 days #60 04/05/24 cream grams nitrofurantoin macrocrystal 100 mg 100 mg PO BID 5 days #10 caps 04/20/24 capsule fosfomycin tromethamine 3 gram 3 g PO Q3D 3 doses #3 ea 04/29/24 oral packet Allergies Allergy/AdvReac Type Severity Reaction Status Date / Time amitriptyline [From Elavil] Allergy Severe I-[id number]/THROAT; Verified 03/19/24 14:25 SEIZURES chlorpromazine Allergy Severe SEIZURES Verified 03/19/24 14:25 [From Thorazine] dichloralphenazone Allergy Severe S-SWELLS-OR Verified 03/19/24 14:25 [From Midrin] AL/THROAT isometheptene [From Midrin] Allergy Severe S-SWELLS-OR Verified 03/19/24 14:25 AL/THROAT prochlorperazine Allergy Severe SEIZURES Verified 03/19/24 14:25 [From Compazine] adhesive tape Allergy Intermediate I-RASH Verified 03/19/24 14:25 aspirin Allergy Intermediate COLD Verified 08/11/23 14:29 SWEATS , N/V cyclobenzaprine Allergy Unknown Unknown Verified 08/11/23 14:29 [From FLEXERIL] allergy reaction duloxetine [DULOXETINE] Allergy Unknown Unknown Verified 08/11/23 14:29 allergy reaction Iodinated Contrast Media Allergy Unknown Unknown Verified 08/11/23 14:29 [IODINATED CONTRAST MEDIA - allergy ORAL AND] reaction Sulfa (Sulfonamide Allergy Unknown CONTRAINDICATED Verified 03/19/24 14:25 Antibiotics) WITH ASTHMA trimethoprim [TRIMETHOPRIM] Allergy Unknown Unknown Verified 03/19/24 14:25 allergy reaction leflunomide Allergy rash, Verified 03/19/24 14:25 redness Macrolide Antibiotics Allergy rash, Verified 03/19/24 14:25 redness Beta-Blockers AdvReac Severe MAKES Verified 03/19/24 14:25 (Beta-Adrenergic Bloc ASTHMA WORSE caffeine [From Cafergot] AdvReac Mild NA-NAUSEA Verified 03/19/24 14:25 ergotamine [From Cafergot] AdvReac Mild NA-NAUSEA Verified 03/19/24 14:25 pregabalin [From Lyrica] AdvReac Mild TOO Verified 03/19/24 14:25 SEDATED NSAIDS (Non-Steroidal AdvReac Unknown Verified 03/19/24 14:25 Anti-Inflamma allergy reaction PFSH PFSH Disclaimer: The information contained in this section may have been updated after the patient was seen, as this information can be updated by other users. Medical History (Updated 05/15/24 @ 16:54 by Avelino John MD) Frequent headaches CKD (chronic kidney disease) stage 3, GFR 30-59 ml/min Dysphagia Pacemaker CVA (cerebral vascular accident) Chronic narcotic use Severe sleep apnea Obese Diabetic neuropathy Hypertension Polypharmacy GERD (gastroesophageal reflux disease) Diabetes Chronic pain disorder Degenerative joint disease (DJD) of lumbar spine Lumbosacral radiculopathy due to degenerative joint disease of spine Surgical History H/O: hysterectomy History of carpal tunnel surgery History of spinal surgery History of colon resection Family History Other Diabetes Social History (Updated 04/03/24 @ 23:34 by Margaret Solitario RN) Smoking Status: Never smoker second hand exposure: No alcohol intake: never substance use type: denies use current occupational status: disabled Travel in the last 8 weeks: None household members: spouse housing: other number of children: 3 current occupational exposures/hazards: No caffeine: Yes ROS Obtained: Yes All systems reviewed & no additional complaints except as documented Positive ROS as per HPI Physical Exam General General appearance: alert and in no apparent distress Head Head exam: atraumatic and normocephalic Eye Eye exam: Present PERRL and EOMI ENT ENT exam: Present mucous membranes moist Neck Neck exam: Present normal inspection and full ROM Chest Chest inspection: Present symmetric chest wall rise Respiratory Respiratory exam: Present normal lung sounds bilaterally; Absent respiratory distress, wheezes or stridor Cardiovascular Cardiovascular exam: Present regular rate and normal rhythm Abdominal Exam Abdominal exam: Present soft and tenderness (Right-sided without localization); Absent distention, guarding, rebound or rigidity Extremities Exam Extremities exam: Present full ROM and other (Splint on right lower extremity secondary to recent fracture.); Absent edema Neurological Exam Neurological exam: Present alert and oriented X3; Absent motor sensory deficit Psychiatric Psychiatric exam: Present normal affect and normal mood Skin Skin exam: Present warm and dry Medical Decision Making Medical Records Medical records reviewed: Yes I reviewed the patient's medical records. MR Comment: On most recent admission to our hospital, patient was treated for urinary tract infection, encephalopathy, candidal intertrigo. Urine culture from 04/29 did not have any growth Abraham Inquiry Pt receiving controlled substance: No Vital Signs: 05/15/24 08:14 05/15/24 08:17 05/15/24 08:30 Temperature 99.3 F Temperature Source Oral Pulse Rate 70 70 Pulse Rate [Left Radial] 70 Respiratory Rate 19 Blood Pressure 111/90 132/76 Blood Pressure [Right Arm] 111/90 Blood Pressure Mean Blood Pressure Mean [Right Arm] 97 02 Sat by Pulse Oximetry 99 99 99 Oxygen Delivery Method Nasal Cannula Oxygen Flow Rate (LPM) 3 05/15/24 09:17 05/15/24 09:30 05/15/24 09:45 Temperature Temperature Source Pulse Rate 70 70 72 Pulse Rate [Left Radial] Respiratory Rate Blood Pressure 108/47 L 113/54 L 115/49 L Blood Pressure [Right Arm] Blood Pressure Mean Blood Pressure Mean [Right Arm] 02 Sat by Pulse Oximetry 100 100 100 Oxygen Delivery Method Room Air Oxygen Flow Rate (LPM) 05/15/24 10:31 05/15/24 11:21 05/15/24 12:00 Temperature Temperature Source Pulse Rate 76 70 74 Pulse Rate [Left Radial] Respiratory Rate Blood Pressure 112/50 L 117/43 L 139/79 Blood Pressure [Right Arm] Blood Pressure Mean 88 Blood Pressure Mean [Right Arm] 02 Sat by Pulse Oximetry 100 100 100 Oxygen Delivery Method Room Air Oxygen Flow Rate (LPM) 05/15/24 12:29 Temperature Temperature Source Pulse Rate 77 Pulse Rate [Left Radial] Respiratory Rate Blood Pressure 127/107 H Blood Pressure [Right Arm] Blood Pressure Mean Blood Pressure Mean [Right Arm] 02 Sat by Pulse Oximetry 100 Oxygen Delivery Method Room Air Oxygen Flow Rate (LPM) Lab Data Lab Results 05/15/24 08:21: WBC 7.2, RBC 3.36 L, Hgb 9.6 L, Hct 33.3 L, MCV 99.1 H, MCH 28.5, MCHC 28.7 L, RDW 21.0 H, Plt Count 219, MPV 9.7, Neut % (Auto) 88.7 H, Lymph % (Auto) 7.4 L, [place] % (Auto) 3.3, Eos % (Auto) 0.5, Baso % (Auto) 0.1, Neut # (Auto) 6.4, Lymph # (Auto) 0.5 L, [place] # (Auto) 0.2, Eos # (Auto) 0.0, Baso # (Auto) 0.0, Total Counted 100, Neutrophils % (Manual) 89 H, Lymphocytes % (Manual) 7 L, Monocytes % (Manual) 4, Platelet Estimate Normal, RBC Morphology Normal, Sodium 140, Potassium 3.8, Chloride 103, Carbon Dioxide 30, Anion Gap 10.8, BUN 27 H, Creatinine 1.30 H, Estimated Creat Clear 52, Estimated GFR 40 L, Est GFR ( Amer) 48 L, Glucose 102 H, Lactate 2.2 H, Calcium 8.2 L, Total Bilirubin 1.6 H, AST 50 H, ALT 26, Alkaline Phosphatase 108, Troponin I 0.06 H, Total Protein 6.5, Albumin 3.8, Globulin 2.7, Albumin/Globulin Ratio 1.4, Lipase 57 05/15/24 08:22: Urine Color Yellow, Urine Appearance Sl cloudy, Urine pH 6.0, Ur Specific [place] >= 1.030, Urine Protein 1+, Urine Glucose (UA) Trace, Urine Ketones Trace, Urine Blood 1+, Urine Nitrate Negative, Urine Bilirubin 1+ A, Urine Urobilinogen 0.2, Ur Leukocyte Esterase 1+ A, Urine RBC 3-5, Urine WBC 3-5, Ur Squamous Epith Cells Occasional, Urine Bacteria Trace, Urine Yeast 1+ 05/15/24 11:33: Troponin I 0.06 H 05/15/24 12:36: Lactate 1.6 05/15/24 08:21 05/15/24 08:21 Orders (Tests/Meds): ED MEDICATIONS Discontinued Medications Generic Name Dose Route Start Last Admin Trade Name Freq PRN Reason Stop Dose Admin Diphenhydramine HCl 50 mg 05/15/24 08:16 05/15/24 08:38 Diphenhydramine 50mg/Ml Vial IV 05/15/24 08:17 50 mg ONCE ONE Administration Lactated Ringer's 1,000 mls @ 999 mls/hr 05/15/24 08:14 05/15/24 08:37 Lactated Ringer's 1000 Ml Bag IV 05/15/24 09:14 999 mls/hr .Q1H1M ONE Administration Iopamidol 75 ml 05/15/24 09:18 05/15/24 09:19 Iopamidol-370 (76%);100ml Bottle IV 05/15/24 09:19 75 ml ONCE ONE Administration Morphine Sulfate 6 mg 05/15/24 08:14 05/15/24 08:37 Morphine 4mg/Ml Syringe IV 05/15/24 08:15 6 mg ONCE ONE Administration Ondansetron HCl 4 mg 05/15/24 08:16 05/15/24 08:38 Ondansetron 4mg/2ml Vial IV 05/15/24 08:17 4 mg ONCE ONE Administration Promethazine HCl 12.5 mg 05/15/24 13:44 05/15/24 13:47 Promethazine Hcl 25mg/Ml 1ml Vial IV 05/15/24 13:45 12.5 mg ONCE ONE Administration Sodium Chloride 10 ml 05/15/24 09:18 05/15/24 09:19 Sodium Chloride 0.9% 10ml Syr (Rad Only) IV 05/15/24 09:19 10 ml ONCE ONE Administration Sodium Chloride 25 ml 05/15/24 13:44 05/15/24 13:47 Sodium Chloride 0.9% 25ml Bag IV 05/15/24 13:45 25 ml ONCE ONE Administration ORDERS Category Date Time Status CT abdomen pelvis w con Stat Cat Scan 05/15/24 08:16 Completed CBC w/Auto Diff [Complete Blood Count Auto Diff] Stat Lab 05/15/24 08:21 Completed CMP [Comprehensive Metabolic Panel] Stat Lab 05/15/24 08:21 Completed Complete Blood Count Auto Diff AMLAB Lab 05/16/24 06:00 Ordered Comprehensive Metabolic Panel AMLAB Lab 05/16/24 06:00 Ordered Lactic Acid Follow Up (RFLX 1) Stat Lab 05/15/24 12:36 Completed Lactic Acid Stat Lab 05/15/24 08:21 Completed Lipase Stat Lab 05/15/24 08:21 Completed Magnesium AMLAB Lab 05/16/24 06:00 Ordered Trop I [Troponin I] Stat Lab 05/15/24 08:21 Completed Troponin I Q3H Lab 05/15/24 11:33 Completed Urinalysis and Microscopic Stat Lab 05/15/24 08:22 Completed Urine Culture Stat Micro 05/15/24 08:22 Received Medical Decision Narrative: In summary, this 78-year-old female with multiple comorbidities including end-stage COPD, frequent urinary tract infections, CHF, CKD, all of which increase her overall morbidity presents to the emergency department today with concerns of nausea, vomiting, inability to tolerate any oral intake. On initial evaluation patient is hemodynamically stable, afebrile, chronically ill-appearing, on home oxygen, mild tenderness to palpation of the right abdomen without any localizing tenderness, nonacute abdomen. Differential diagnosis includes but is not limited to viral syndrome, bowel obstruction, urinary tract infection, pyelonephritis, malignancy, electrolyte abnormality, dehydration. Based on these concerns, I ordered serum labs, CT imaging, I had considered ACS though it is less likely I did order cardiac workup, urine studies. ECG personally interpreted demonstrates ventricular paced rhythm, rate 80, widened QRS and prolonged QTc, no STEMI. ECG similar to prior. Patient received IV fluids, Zofran, morphine for treatment. She is already wearing a fentanyl patch. Patient received Benadryl for pretreatment of contrast allergy. Labs personally reviewed demonstrate elevated creatinine, however this is improved from prior, no leukocytosis, anemia improved from previous, normal platelets, nonactionable electrolytes, lactate is elevated at 2.2, patient is receiving IV fluids, patient does have newly elevated bilirubin at 1.6 with slightly elevated AST but no other LFT abnormalities, UA with trace bacteria and few WBCs, negative nitrite, I do not believe patient requires different treatment for UTI at this time, initial troponin elevated at 0.06, patient has had elevated troponin previously, serial troponin pending. CT abdomen pelvis personally to her to present demonstrate any acute intra-abdominal pathology, patient does have findings of cirrhosis and ascites, patient does not have significant fluid wave on exam, I do not believe paracentesis would be valuable to her at this time. See radiology read for final interpretation. Patient was placed into ED observation at 10:10 AM for continued monitoring, serial troponins to rule out evolving AR since patient has stable ECG and no chest pain, patient was also in observation to attempt further antiemetics and oral intake challenges. Repeat troponin also elevated at 0.06, I discussed this case with cardiology who evaluated the patient at bedside. They state patient is cleared from their standpoint and does not require further intervention. Patient attempted oral intake and failed, she received Phenergan and again attempted oral intake which also failed. At this time I believe patient requires admission for management of intractable nausea and vomiting. Patient and family are amenable to this plan. I discussed this case with the hospitalist who accepted the patient for admission. Patient was admitted in stable condition. Critical Care Critical Care Time Critical Care Time: No
[2024-05-15 08:43] LABS: Albumin Level 3.8 g/dl (3.5-5.0); Chloride 103 mmol/L (98-107); MANUAL DIFFERENTIAL MANUAL DIFFERENTIAL (MANUAL DIFF); Potassium 3.8 mmoL/L (3.5-5.1); Sodium 140 mmol/L (136-145)
[2024-05-15 08:43] LABS: Appearance,Urine SL CLOUDY (Clear); Blood, Urine 1+ (Negative); Color,Urine YELLOW (Yellow); Glucose,Urine (UA) TRACE (Negative); Ketones,Urine TRACE (Negative); Leukocyte Esterase,Urine 1+ (Negative); Nitrate,Urine Negative (Negative); Protein,Urine 1+ (Negative); Specific Gravity, Urine >= 1.030 (1.005-1.030); Urobilinogen,Urine 0.2 EU/dl (0.2)
[2024-05-15 08:45] LABS: Alanine Aminotransferase 26 U/L (12-78); Anion Gap 10.8 mEq/L (5-15); Aspartate Amino Transferase 50 U/L (14-36); Blood Urea Nitrogen 27 mg/dl (7-17); Carbon Dioxide 30 mmol/L (22.0-30.0); Creatinine Clearance Estimated 52 mL/min (50-200); Estimated Glomerular Filt Rate 40 ml/min (>60); GFR (African American) 48 ML/MIN (>60)
[2024-05-15 08:46] LABS: Albumin/Globulin Ratio 1.4 (1.1-1.8); Alkaline Phosphatase 108 U/L (38-126); Bilirubin,Total 1.6 mg/dl (0.2-1.3); Calcium 8.2 mg/dl (8.4-10.2); Globulin 2.7 g/dL (1.3-3.2); Glucose 102 mg/dl (74-100); Lipase 57 U/L (23-300); Total Protein,Serum 6.5 g/dl (6.3-8.2)
[2024-05-15 08:55] LABS: Lactic Acid 2.2 mmol/L (0.7-2.1)
[2024-05-15 08:55] LABS: Bilirubin,Urine 1+ (Negative)
[2024-05-15 08:56] LABS: Bacteria,Urine Trace /lpf; Squamous Epithelial Cell,Urine Occasional #/hpf (0-5); Yeast,Urine 1+ /lpf
[2024-05-15 08:58] LABS: Troponin I 0.06 ng/ml (0.00-0.034)
[2024-05-15 09:10] LABS: Lymphocytes % 7 % (10-50); Monocytes % 4 % (2-9); Neutrophils % 89 % (42-76); Platelet Estimate Normal; RBC Morphology Normal; Total Cells Counted 100
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
[2024-05-15] MEDS: SODIUM CHLORIDE 0.9% 10ML SYR (RAD ONLY) 10 ML IV (09:19)
[2024-05-15] MEDS: IOPAMIDOL-370 (76%);100ML BOTTLE 75 ML IV (09:19)
[2024-05-15 12:00] LABS: Troponin I 0.06 ng/ml (0.00-0.034)
[2024-05-15 12:28] LABS: Reflex Lactic Add Lactic Reflex
--- NOTE | 2024-05-15 12:50 | PC.NURSE ---
SANTOS HIGGINS WITH CARDIOLOGY NOTIFIED OF CONSULT
[2024-05-15 12:51] LABS: Lactic Acid Follow Up (RFLX 1) 1.6 mmol/L (0.7-2.1)
[2024-05-15] MEDS: PROMETHAZINE HCL 25MG/ML 1ML VIAL 12.5 MG IV (13:47)
[2024-05-15] MEDS: SODIUM CHLORIDE 0.9% 25ML BAG 25 ML IV (13:47)
--- NOTE | 2024-05-15 13:49 | PC.NURSE ---
patient in room, no concerns at this time.
--- NOTE | 2024-05-15 13:52 | P.CONCA_ITS ---
History of Present Illness History of Present Illness Consult date: 05/15/24 Requesting physician: Avelino John Chief complaint: Abdominal pain, nausea, vomiting, elevated troponins Additional Medical History:: 1. Hospice due to multiple comorbidities 2. 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 CKD, stage III 4. Chronic anemia 5. Multiple drug allergies/intolerances 6. Mild cardiomyopathy by echocardiogram 2022 with EF 45% and no regional wall motion abnormalities noted. Mild concentric LVH noted. Mild RV enlargement with normal contractility. Mild MR and TR. RVSP 60 mmHg 7. HFrEF 8. Diabetes 9. Hypertension 10. Severe sleep apnea History of present illness: 78-year-old female presents to the ER for complaints of nausea and vomiting for 4 days with associated abdominal pain. Patient is on hospice for multiple reasons including end-stage COPD. Patient states she has had multiple recent urinary tract infections and continues to be on an antibiotic, she believes it is amoxicillin. Patient still reports dysuria. Patient states she is not able to keep anything down including food. She denies fevers, chest pain, shortness of breath, or other associated symptoms. The above per Dr. John Cardiology consulted for troponins mildly elevated at 0.06. Patient denies any chest pain, pressure or tightness. EKG shows paced rhythm without acute changes. Patient has been a longtime patient of Dr. Tucker in [place] who follows her pacemaker. [facility] Disclaimer: The information contained in this section may have been updated after the patient was seen, as this information can be updated by other users. Medical History (Updated 05/15/24 @ 14:04 by INGRID Mcarthur) Frequent headaches CKD (chronic kidney disease) stage 3, GFR 30-59 ml/min Dysphagia Pacemaker CVA (cerebral vascular accident) Chronic narcotic use Severe sleep apnea Obese Diabetic neuropathy Hypertension Polypharmacy GERD (gastroesophageal reflux disease) Diabetes Chronic pain disorder Degenerative joint disease (DJD) of lumbar spine Lumbosacral radiculopathy due to degenerative joint disease of spine Surgical History H/O: hysterectomy History of carpal tunnel surgery History of spinal surgery History of colon resection Family History Other Diabetes Social History (Updated 04/03/24 @ 23:34 by Margaret Solitario RN) Smoking Status: Never smoker second hand exposure: No alcohol intake: never substance use type: denies use current occupational status: disabled Travel in the last 8 weeks: None household members: spouse housing: other number of children: 3 current occupational exposures/hazards: No caffeine: Yes Review of Systems Review of Systems Review of systems:: pertinent systems reviewed and negative unless documented below *Cardiovascular Cardiovascular: Denies chest pain and Reports dyspnea *Respiratory Respiratory: Reports dyspnea *Gastrointestinal Gastrointestinal: Reports melena and Reports vomiting Exam Data for Last 24 hours Vital signs and Labs for Last 24 Hours: Temp Pulse Resp BP Pulse Ox O2 Del Method O2 Flow Rate 99.3 F 77 19 127/107 H 100 Room Air 3 05/15/24 08:17 05/15/24 12:29 05/15/24 08:17 05/15/24 12:29 05/15/24 12:29 05/15/24 12:29 05/15/24 08:17 Laboratory Results - last 24 hr 05/15/24 08:21: WBC 7.2, RBC 3.36 L, Hgb 9.6 L, Hct 33.3 L, MCV 99.1 H, MCH 28.5, MCHC 28.7 L, RDW 21.0 H, Plt Count 219, MPV 9.7, Neut % (Auto) 88.7 H, Lymph % (Auto) 7.4 L, Motley % (Auto) 3.3, Eos % (Auto) 0.5, Baso % (Auto) 0.1, Neut # (Auto) 6.4, Lymph # (Auto) 0.5 L, [place] # (Auto) 0.2, Eos # (Auto) 0.0, Baso # (Auto) 0.0, Total Counted 100, Neutrophils % (Manual) 89 H, Lymphocytes % (Manual) 7 L, Monocytes % (Manual) 4, Platelet Estimate Normal, RBC Morphology Normal, Sodium 140, Potassium 3.8, Chloride 103, Carbon Dioxide 30, Anion Gap 10.8, BUN 27 H, Creatinine 1.30 H, Estimated Creat Clear 52, Estimated GFR 40 L, Est GFR ( Amer) 48 L, Glucose 102 H, Lactate 2.2 H, Calcium 8.2 L, Total Bilirubin 1.6 H, AST 50 H, ALT 26, Alkaline Phosphatase 108, Troponin I 0.06 H, Total Protein 6.5, Albumin 3.8, Globulin 2.7, Albumin/Globulin Ratio 1.4, Lipase 57 05/15/24 08:22: Urine Color Yellow, Urine Appearance Sl cloudy, Urine pH 6.0, Ur Specific [place] >= 1.030, Urine Protein 1+, Urine Glucose (UA) Trace, Urine Ketones Trace, Urine Blood 1+, Urine Nitrate Negative, Urine Bilirubin 1+ A, Urine Urobilinogen 0.2, Ur Leukocyte Esterase 1+ A, Urine RBC 3-5, Urine WBC 3- 5, Ur Squamous Epith Cells Occasional, Urine Bacteria Trace, Urine Yeast 1+ 05/15/24 11:33: Troponin I 0.06 H 05/15/24 12:36: Lactate 1.6 I & O for Last 24 hours: Intake & Output 05/13/24 05/14/24 05/15/24 05/16/24 11:59 11:59 11:59 11:59 Weight 200 lb Constitutional Constitutional: moderate distress and obese *Routine Respiratory Exam Respiratory: Present decreased breath sounds; Absent rales or wheezes *Routine Cardiovascular Exam Cardiovascular: Present RRR; Absent murmur, gallop or rubs *Routine Extremities Exam Extremities: Present edema *Routine Neurological Exam Neurological: Present alert and oriented X3 Meds Home Medications and Allergies Home Medications ?Medication ?Instructions ?Recorded ?Confirmed ?Type apixaban 5 mg tablet (Eliquis) 5 mg PO BID 09/27/23 04/03/24 History bisoprolol fumarate 10 mg tablet 10 mg PO DAILY 09/27/23 04/03/24 History empagliflozin 10 mg tablet 10 mg PO DAILY 09/27/23 04/04/24 History (Jardiance) famotidine 20 mg tablet 20 mg PO BID 09/27/23 04/03/24 History fentanyl 25 mcg/hr transdermal 25 mcg transdermal Q72H 09/27/23 04/03/24 History patch gabapentin 600 mg tablet 600 mg PO QID 09/27/23 04/03/24 History hydroxychloroquine 200 mg tablet 200 mg PO BID 09/27/23 04/03/24 History insulin aspart U-100 100 unit/mL 10 unit SQ DAILYP PRN Hyperglycemia 09/27/23 04/03/24 History (3 mL) subcutaneous pen (Novolog FlexPen U-100 Insulin aspart) insulin glargine 100 unit/mL 35 unit SQ HS 09/27/23 04/03/24 History subcutaneous solution (Lantus U-100 Insulin) pantoprazole 40 mg tablet,delayed 40 mg PO BID 09/27/23 04/03/24 History release acetaminophen 500 mg tablet 500 mg PO BIDP PRN Pain 09/28/23 04/03/24 History melatonin 3 mg tablet 3 mg PO HS 09/28/23 04/03/24 History polyethylene glycol 3350 17 gram 17 g PO BID PRN Constipation 09/28/23 04/03/24 History oral powder packet alprazolam 0.5 mg tablet 0.5 mg PO TID PRN Anxiety 03/19/24 04/04/24 History escitalopram oxalate 5 mg tablet 5 mg PO DAILY 04/03/24 04/03/24 History furosemide 80 mg tablet 80 mg PO MOWEFR 04/03/24 04/04/24 History oxycodone 10 mg tablet 10 mg PO QID PRN Moderate Pain 04/03/24 04/03/24 History (Scale Score 5-6) cefdinir 300 mg capsule 300 mg PO BID 5 days #10 caps 04/04/24 Rx nystatin 100,000 unit/gram topical 1 applic topical QID 10 days #60 04/05/24 Rx cream grams nitrofurantoin macrocrystal 100 mg 100 mg PO BID 5 days #10 caps 04/20/24 Rx capsule fosfomycin tromethamine 3 gram 3 g PO Q3D 3 doses #3 ea 04/29/24 Rx oral packet New Prescriptions to Start Prescriptions: Allergies Allergy/AdvReac Type Severity Reaction Status Date / Time amitriptyline [From Elavil] Allergy Severe [id number]-[id number]/THROAT; Verified 03/19/24 14:25 SEIZURES chlorpromazine Allergy Severe SEIZURES Verified 03/19/24 14:25 [From Thorazine] dichloralphenazone Allergy Severe S-SWELLS-OR Verified 03/19/24 14:25 [From Midrin] AL/THROAT isometheptene [From Midrin] Allergy Severe S-SWELLS-OR Verified 03/19/24 14:25 AL/THROAT prochlorperazine Allergy Severe SEIZURES Verified 03/19/24 14:25 [From Compazine] adhesive tape Allergy Intermediate I-RASH Verified 03/19/24 14:25 aspirin Allergy Intermediate COLD Verified 08/11/23 14:29 SWEATS , N/V cyclobenzaprine Allergy Unknown Unknown Verified 08/11/23 14:29 [From FLEXERIL] allergy reaction duloxetine [DULOXETINE] Allergy Unknown Unknown Verified 08/11/23 14:29 allergy reaction Iodinated Contrast Media Allergy Unknown Unknown Verified 08/11/23 14:29 [IODINATED CONTRAST MEDIA - allergy ORAL AND] reaction Sulfa (Sulfonamide Allergy Unknown CONTRAINDICATED Verified 03/19/24 14:25 Antibiotics) WITH ASTHMA trimethoprim [TRIMETHOPRIM] Allergy Unknown Unknown Verified 03/19/24 14:25 allergy reaction leflunomide Allergy rash, Verified 03/19/24 14:25 redness Macrolide Antibiotics Allergy rash, Verified 03/19/24 14:25 redness Beta-Blockers AdvReac Severe MAKES Verified 03/19/24 14:25 (Beta-Adrenergic Bloc ASTHMA WORSE caffeine [From Cafergot] AdvReac Mild NA-NAUSEA Verified 03/19/24 14:25 ergotamine [From Cafergot] AdvReac Mild NA-NAUSEA Verified 03/19/24 14:25 pregabalin [From Lyrica] AdvReac Mild TOO Verified 03/19/24 14:25 SEDATED NSAIDS (Non-Steroidal AdvReac Unknown Verified 03/19/24 14:25 Anti-Inflamma allergy reaction Assessment and Plan *Assessment and plan (1) Abdominal pain: Status: Acute Qualifiers: Abdominal location: generalized Qualified Code(s): R10.84 - Generalized abdominal pain Category: Medical Code(s): R10.9 - Unspecified abdominal pain (2) Nausea & vomiting: Status: Acute Qualifiers: Vomiting type: unspecified Qualified Code(s): R11.2 - Nausea with vomiting, unspecified Category: Medical Code(s): R11.2 - Nausea with vomiting, unspecified (3) Elevated troponin: Status: Acute Category: Medical Code(s): R79.89 - Other specified abnormal findings of blood chemistry (4) Anemia: Status: Acute Qualifiers: Anemia type: due to chronic kidney disease Chronic kidney disease stage: stage 3 (moderate) Chronic kidney disease stage 3 subtype: stage 3b (GFR 30-44) Qualified Code(s): N18.32 - Chronic kidney disease, stage 3b; D63.1 - Anemia in chronic kidney disease Category: Medical Code(s): D64.9 - Anemia, unspecified (5) CKD (chronic kidney disease): Status: Acute Qualifiers: Chronic kidney disease stage: stage 4 (severe) Qualified Code(s): N18.4 - Chronic kidney disease, stage 4 (severe) Category: Medical Code(s): N18.9 - Chronic kidney disease, unspecified (6) Hospice care patient: Status: Acute Category: Medical Code(s): Z51.5 - Encounter for palliative care (7) Chronic hypoxemic respiratory failure: Status: Chronic Category: Medical Code(s): J96.11 - Chronic respiratory failure with hypoxia (8) Diabetes: Status: Chronic Qualifiers: Diabetes mellitus complication status: with other specified complication Diabetes mellitus director television insulin use: with director television use Diabetes mellitus type: type 2 Qualified Code(s): E11.69 - Type 2 diabetes mellitus with other specified complication; Z79.4 - assisted (current) use of insulin Category: Medical Code(s): E11.9 - Type 2 diabetes mellitus without complications (9) Hypertension: Status: Acute Qualifiers: Hypertension type: primary hypertension Qualified Code(s): I10 - Essential (primary) hypertension Category: Medical Code(s): I10 - Essential (primary) hypertension (10) Severe sleep apnea: Status: Chronic Category: Medical Code(s): G47.30 - Sleep apnea, unspecified Plan 1. Abdominal pain with nausea and vomiting -Workup per Dr. 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 No evidence of obstruction 2. Elevated troponins, mild -Likely related to 3 to 4 days of nausea/ vomiting combined with anemia and chronic kidney disease and elevated lactate level -Patient denies any chest pain, pressure or tightness. -No further workup at this time. Recommend follow-up with her regular testing and regulating technician Dr. Tucker 3. End-stage COPD 4. Diabetes mellitus 5. Hypertension 6. COPD 7. CKD, stage III 8. Pacemaker in situ, followed by Dr. Tucker 9. Hospice patient
--- NOTE | 2024-05-15 15:58 | PC.NURSE ---
wash house worker notified of admission
--- NOTE | 2024-05-15 16:00 | SW/DCPLANNER ---
Addendum entered by Arianne Prescott 05/15/24 16:04: I have updated Wendy balderas/ Nain Peter regarding this plan. Original Note: Patient is currently established w/ [facility]. Updated patient information has been faxed to Tri balderas/ [facility]. I am waiting on a return call from Tri regarding if hospital admission is a related to Hospice diagnosis.
--- NOTE | 2024-05-15 16:21 | PC.NURSE ---
Called report to Israel ROTH on Med/Surg
--- NOTE | 2024-05-15 16:53 | PC.NURSE ---
PATIENT ARRIVED TO FLOOR BY STRETCHER AT [address], [place]
--- NOTE | 2024-05-15 18:14 | EXP.HP ---
History of Present Illness *Admission Date: 05/15/24 *Reason for visit:: nausea, vomiting, abdominal pain *History of present illness: Mrs. Leon is a 78-year-old female with multiple comorbidities including chronic pain, chronic opiate therapy, chronic oxygen for respiratory failure/end-stage COPD, bedbound status, hypertension, indwelling catheter, recurrent UTIs, diabetes, PTSD who was recently admitted to hospice a little over a month ago. She presented to the ER due to complaint of 2 to 3 days of nausea and vomiting. Has had worsening abdominal pain. Daughter and at bedside support history. Reports that she has had some darker stools over the past few days. Vomiting with mucus and brown emesis. reports he discontinued the patient's alprazolam as of last Tuesday. Was taking it twice a day at that time. Patient denies fever, dyspnea, altered mental status. said he stopped her Xanax because she was sleeping more and when he stopped that she has become more alert and oriented. He was concerned she might have another UTI. Workup in the ER with chronic anemia, better than patient's baseline. Kidney function electrolytes at or better than patient's baseline. CT of abdomen showing increasing ascites and cirrhosis with portal hypertension. White count normal. Attempts to treat nausea and vomiting in the ER were unsuccessful. Medicine consulted for admission and further management. On arrival to the floor, patient's son, daughter, at bedside. There is some confusion as to when her last Xanax was administered. Concerned that she may be having symptoms from withdrawal. Has been on this medication for many years. Patient decided to stop it on his own. Patient's vomiting began 24 to 48 hours after last dose. No known sick contacts. Is oriented on exam. On baseline oxygen of 3 L. Febrile. Complains of generalized abdominal pain, worse in right lower quadrant. Of note, appendix is absent. [facility] Disclaimer: The information contained in this section may have been updated after the patient was seen, as this information can be updated by other users. Medical History Frequent headaches CKD (chronic kidney disease) stage 3, GFR 30-59 ml/min Dysphagia Pacemaker CVA (cerebral vascular accident) Chronic narcotic use Severe sleep apnea Obese Diabetic neuropathy Hypertension Polypharmacy GERD (gastroesophageal reflux disease) Diabetes Chronic pain disorder Degenerative joint disease (DJD) of lumbar spine Lumbosacral radiculopathy due to degenerative joint disease of spine Surgical History H/O: hysterectomy History of carpal tunnel surgery History of spinal surgery History of colon resection Family History Diabetes Social History Smoking Status: Never smoker second hand exposure: No alcohol intake: never substance use type: denies use current occupational status: disabled Travel in the last 8 weeks: None household members: spouse housing: other number of children: 3 current occupational exposures/hazards: No caffeine: Yes Review of Systems Review of Systems Review of systems (narrative): 14 point review of systems performed, pertinent positives and negatives as per [facility] Meds Home Medications and Allergies Home Medications ?Medication ?Instructions ?Recorded ?Confirmed ?Type apixaban 5 mg tablet (Eliquis) 5 mg PO BID 09/27/23 05/15/24 History bisoprolol fumarate 10 mg tablet 10 mg PO DAILY 09/27/23 05/15/24 History empagliflozin 10 mg tablet 10 mg PO DAILY 09/27/23 05/15/24 History (Jardiance) famotidine 20 mg tablet 20 mg PO BID 09/27/23 05/15/24 History fentanyl 25 mcg/hr transdermal 25 mcg transdermal Q72H 09/27/23 05/15/24 History patch gabapentin 600 mg tablet 600 mg PO QID 09/27/23 05/15/24 History hydroxychloroquine 200 mg tablet 200 mg PO BID 09/27/23 05/15/24 History insulin aspart U-100 100 unit/mL 10 unit SQ DAILYP PRN Hyperglycemia 09/27/23 05/15/24 History (3 mL) subcutaneous pen (Novolog FlexPen U-100 Insulin aspart) insulin glargine 100 unit/mL 35 unit SQ HS 09/27/23 05/15/24 History subcutaneous solution (Lantus U-100 Insulin) pantoprazole 40 mg tablet,delayed 40 mg PO BID 09/27/23 05/15/24 History release acetaminophen 500 mg tablet 500 mg PO BIDP PRN Pain 09/28/23 05/15/24 History melatonin 3 mg tablet 10 mg PO HS 09/28/23 05/15/24 History escitalopram oxalate 5 mg tablet 10 mg PO DAILY 04/03/24 05/15/24 History furosemide 80 mg tablet 40 mg PO MOWEFR 04/03/24 05/15/24 History oxycodone 10 mg tablet 10 mg PO QID PRN Moderate Pain 04/03/24 05/15/24 History (Scale Score 5-6) nystatin 100,000 unit/gram topical 1 applic topical QID 10 days #60 04/05/24 05/15/24 Rx cream grams nitrofurantoin macrocrystal 100 mg 100 mg PO BID 5 days #10 caps 04/20/24 05/15/24 Rx capsule fosfomycin tromethamine 3 gram 3 g PO Q3D 3 doses #3 ea 04/29/24 05/15/24 Rx oral packet atorvastatin 40 mg tablet 40 mg PO DAILY 05/15/24 05/15/24 History guaifenesin 600 mg tablet, 600 mg PO BID 05/15/24 05/15/24 History extended release 12 hr hyoscyamine sulfate 0.125 mg 0.125 mg PO NEEDED PRN 05/15/24 05/15/24 History sublingual tablet Congestion ipratropium 0.5 mg-albuterol 3 mg 1 ml inhalation NEEDED PRN 05/15/24 05/15/24 History (2.5 mg base)/3 mL nebulization Congestion soln ondansetron HCl 4 mg tablet 4 mg PO Q8HP PRN Nausea And 05/15/24 05/15/24 History Vomiting New Prescriptions to Start Prescriptions: Allergies Allergy/AdvReac Type Severity Reaction Status Date / Time amitriptyline [From Elavil] Allergy Severe [id number]/[id number]; Verified 03/19/24 14:25 SEIZURES chlorpromazine Allergy Severe SEIZURES Verified 03/19/24 14:25 [From Thorazine] dichloralphenazone Allergy Severe S-SWELLS-OR Verified 03/19/24 14:25 [From Midrin] AL/THROAT isometheptene [From Midrin] Allergy Severe S-SWELLS-OR Verified 03/19/24 14:25 AL/THROAT prochlorperazine Allergy Severe SEIZURES Verified 03/19/24 14:25 [From Compazine] adhesive tape Allergy Intermediate I-RASH Verified 03/19/24 14:25 aspirin Allergy Intermediate COLD Verified 08/11/23 14:29 SWEATS , N/V cyclobenzaprine Allergy Unknown Unknown Verified 08/11/23 14:29 [From FLEXERIL] allergy reaction duloxetine [DULOXETINE] Allergy Unknown Unknown Verified 08/11/23 14:29 allergy reaction Iodinated Contrast Media Allergy Unknown Unknown Verified 08/11/23 14:29 [IODINATED CONTRAST MEDIA - allergy ORAL AND] reaction Sulfa (Sulfonamide Allergy Unknown CONTRAINDICATED Verified 03/19/24 14:25 Antibiotics) WITH ASTHMA trimethoprim [TRIMETHOPRIM] Allergy Unknown Unknown Verified 03/19/24 14:25 allergy reaction leflunomide Allergy rash, Verified 03/19/24 14:25 redness Macrolide Antibiotics Allergy rash, Verified 03/19/24 14:25 redness Beta-Blockers AdvReac Severe MAKES Verified 03/19/24 14:25 (Beta-Adrenergic Bloc ASTHMA WORSE caffeine [From Cafergot] AdvReac Mild NA-NAUSEA Verified 03/19/24 14:25 ergotamine [From Cafergot] AdvReac Mild NA-NAUSEA Verified 03/19/24 14:25 pregabalin [From Lyrica] AdvReac Mild TOO Verified 03/19/24 14:25 SEDATED NSAIDS (Non-Steroidal AdvReac Unknown Verified 03/19/24 14:25 Anti-Inflamma allergy reaction Exam Data for Last 24 hours Vital signs and Labs for Last 24 Hours: Temp Pulse Resp BP Pulse Ox O2 Del Method O2 Flow Rate 98.3 F 85 20 125/50 L 94 L Nasal Cannula 3 05/15/24 17:00 05/15/24 17:00 05/15/24 17:00 05/15/24 17:00 05/15/24 17:00 05/15/24 18:06 05/15/24 18:06 Laboratory Results - last 24 hr 05/15/24 08:21: WBC 7.2, RBC 3.36 L, Hgb 9.6 L, Hct 33.3 L, MCV 99.1 H, MCH 28.5, MCHC 28.7 L, RDW 21.0 H, Plt Count 219, MPV 9.7, Neut % (Auto) 88.7 H, Lymph % (Auto) 7.4 L, [place] % (Auto) 3.3, Eos % (Auto) 0.5, Baso % (Auto) 0.1, Neut # (Auto) 6.4, Lymph # (Auto) 0.5 L, [place] # (Auto) 0.2, Eos # (Auto) 0.0, Baso # (Auto) 0.0, Total Counted 100, Neutrophils % (Manual) 89 H, Lymphocytes % (Manual) 7 L, Monocytes % (Manual) 4, Platelet Estimate Normal, RBC Morphology Normal, Sodium 140, Potassium 3.8, Chloride 103, Carbon Dioxide 30, Anion Gap 10.8, BUN 27 H, Creatinine 1.30 H, Estimated Creat Clear 52, Estimated GFR 40 L, Est GFR ( Amer) 48 L, Glucose 102 H, Lactate 2.2 H, Calcium 8.2 L, Total Bilirubin 1.6 H, AST 50 H, ALT 26, Alkaline Phosphatase 108, Troponin I 0.06 H, Total Protein 6.5, Albumin 3.8, Globulin 2.7, Albumin/Globulin Ratio 1.4, Lipase 57 05/15/24 08:22: Urine Color Yellow, Urine Appearance Sl cloudy, Urine pH 6.0, Ur Specific [place] >= 1.030, Urine Protein 1+, Urine Glucose (UA) Trace, Urine Ketones Trace, Urine Blood 1+, Urine Nitrate Negative, Urine Bilirubin 1+ A, Urine Urobilinogen 0.2, Ur Leukocyte Esterase 1+ A, Urine RBC 3-5, Urine WBC 3-5, Ur Squamous Epith Cells Occasional, Urine Bacteria Trace, Urine Yeast 1+ 05/15/24 11:33: Troponin I 0.06 H 05/15/24 12:36: Lactate 1.6 I & O for Last 24 hours: Intake & Output 05/12/24 05/13/24 05/14/24 05/15/24 23:59 23:59 23:59 23:59 Weight 98.911 kg Constitutional Constitutional: mild distress, morbidly obese, chronically ill appearing and obtunded *Routine HEENT Exam Head: Present normocephalic and atraumatic Eye: Present EOMI, PERRL and normal accommodation ENT: Present mucous membranes moist *Routine Neck Exam Neck: Present supple, full ROM and trachea midline *Routine Respiratory Exam Respiratory: Present prolonged expiratory phase, diminished air movement, normal respiratory effort and symmetric chest movement; Absent respiratory distress, rhonchi, wheezes or crackles *Routine Cardiovascular Exam Cardiovascular: Present RRR, Normal S1, Normal S2 and tachycardia *Routine Abdominal Exam Abdominal: Present soft, tenderness (Throughout, worse in right lower quadrant) and obese; Absent normoactive bowel sounds or guarding Comments: Hypo-active bowel *Routine Rectal Exam Rectal:: deferred *Routine Genitalia Exam Genitalia:: deferred *Routine Extremities Exam Extremities: Present full ROM and pulses intact; Absent cyanosis, clubbing or edema Comments: Right leg in cam walker boot *Routine Skin Exam Skin: Present intact, dry and warm *Routine Neurological Exam Neurological: Present alert, normal reflexes and moving all extremities; Absent altered mental status Routine Psychiatric Exam Psychiatric: Present unable to assess Assessment and Plan *Assessment and plan (1) Abdominal pain: Status: Acute Qualifiers: Abdominal location: generalized Qualified Code(s): R10.84 - Generalized abdominal pain Category: Medical Code(s): R10.9 - Unspecified abdominal pain (2) Nausea & vomiting: Status: Acute Qualifiers: Vomiting type: unspecified Qualified Code(s): R11.2 - Nausea with vomiting, unspecified Category: Medical Code(s): R11.2 - Nausea with vomiting, unspecified (3) Elevated troponin: Status: Acute Category: Medical Code(s): R79.89 - Other specified abnormal findings of blood chemistry (4) Candidal intertrigo: Status: Acute Category: Medical Code(s): B37.2 - Candidiasis of skin and nail (5) Diabetes: Status: Chronic Qualifiers: Diabetes mellitus type: type 2 Diabetes mellitus terminal operations manager insulin use: with correction use Diabetes mellitus complication status: with other specified complication Qualified Code(s): E11.69 - Type 2 diabetes mellitus with other specified complication; Z79.4 - residential (current) use of insulin Category: Medical Code(s): E11.9 - Type 2 diabetes mellitus without complications (6) Hypertension: Status: Acute Qualifiers: Hypertension type: primary hypertension Qualified Code(s): I10 - Essential (primary) hypertension Category: Medical Code(s): I10 - Essential (primary) hypertension (7) Hospice care patient: Status: Acute Category: Medical Code(s): Z51.5 - Encounter for palliative care (8) Polypharmacy: Status: Chronic Category: Medical Code(s): Z79.899 - Other terminal operations manager (current) drug therapy (9) Chronic narcotic use: Status: Chronic Category: Social Hx Code(s): F11.90 - Opioid use, unspecified, uncomplicated (10) Lumbosacral radiculopathy due to degenerative joint disease of spine: Status: Chronic Category: Medical Code(s): M47.27 - Other spondylosis with radiculopathy, lumbosacral region (11) Chronic hypoxemic respiratory failure: Status: Chronic Category: Medical Code(s): J96.11 - Chronic respiratory failure with hypoxia (12) CKD (chronic kidney disease) stage 3, GFR 30-59 ml/min: Status: Acute Qualifiers: Chronic kidney disease stage 3 subtype: stage 3a (GFR 45-59) Qualified Code(s): N18.31 - Chronic kidney disease, stage 3a Category: Medical Code(s): N18.30 - Chronic kidney disease, stage 3 unspecified Plan 78-year-old female with multiple comorbidities who presented with nausea and vomiting and abdominal pain to the ER. Workup with fairly unremarkable labs however unable to obtain control of patient's nausea and vomiting. Medicine consulted for admission. Discussed case with ER, request admission for further medical management, fluids, serial labs. I agreed to admit. Patient having active nausea upon arrival to the floor. Denies any marla chest pain. Patient is a hospice patient and has been with hospice for at least a month and a half. Recently stopped Xanax, concerned she may be having withdrawal symptoms. No clear indication of infection at this time. Problems addressed as follows: Abdominal pain Intractable nausea and vomiting -Recent abrupt cessation of Xanax, concerning for withdrawal. Will administer 0.5 mg IV lorazepam as needed every 8 hours. 1 dose now to see if this helps with her nausea -Continue Zofran 4 mg every 6 hours as needed IV - Personally reviewed CT of abdomen, concern for ascites and abnormal appearance of liver consistent with cirrhosis; I believe this has been mentioned to the patient and before however this new seems to be new to them. Will further discuss tomorrow with goals of care and rediscussion about hospice. Nothing to do acutely at this time -Resume Lasix 40 mg daily tomorrow with addition of spironolactone 20 mg daily for ascites management long-term indwelling catheter, recurrent UTIs - Urine negative for nitrate, 1+ leuk esterase, 1+ yeast. 3-5 white cells. In the setting of long-term indwelling catheter, will hold on further treatment. Urine culture pending. White count normal at 7.2 Polypharmacy Chronic benzodiazepine and opiate use. Continue oxycodone 10 mg every 6 hours. Continue gabapentin 600 mg every 6 hours. -Concern for component of withdrawal from benzodiazepine given abrupt cessation last Tuesday prior to onset of symptoms. Resume low-dose lorazepam. Will branch credit counselor on taper at discharge pending goals of care unless plan is to resume given her hospice status. Diabetes: Continue to glargine at reduced dose of 25 units nightly. Sliding scale insulin with fingersticks ACHS DNR/DNI On Eliquis Diabetic diet
[2024-05-15] MEDS: PATIENT'S OWN HOME MEDICATION (Oxycodone 10 mg tablet) 10 EACH PO (18:23)
[2024-05-15] MEDS: GABAPENTIN 600MG TABLET 600 MG PO (18:45)
[2024-05-15 20:51] LABS: POC Glucose,Bedside 117 (70-110)
[2024-05-15] MEDS: FAMOTIDINE 20MG TABLET 20 MG PO (20:53)
[2024-05-15] MEDS: APIXABAN 5MG TABLET 5 MG PO (20:53)
[2024-05-15] MEDS: MELATONIN 3 MG 10 EACH PO (20:54)
[2024-05-15] MEDS: INSULIN GLARGINE 100 UNITS/ML 10ML VIAL 25 UNIT SQ (20:54)
[2024-05-15] MEDS: LORazepam 2MG/ML VIAL 0.5 MG IV (21:56)
[2024-05-15] MEDS: IPRATROPIUM/ALBUTEROL 3 ML NEB IH (23:32)
[2024-05-16] MEDS: PANTOPRAZOLE 40MG TABLET 40 MG PO ×3 (00:15→20:21)
[2024-05-16] MEDS: GABAPENTIN 600MG TABLET 600 MG PO ×2 (00:26→12:47)
[2024-05-16] MEDS: OXYCODONE 5MG IMMEDIATE RELEASE TABLET 10 MG PO ×2 (00:26→12:41)
--- NOTE | 2024-05-16 01:06 | PC.NURSE ---
Spouse reported to nurse around 11 pm that pt was due to have her Fentanyl patch changed tonight. ( on 05/15). Informed spouse that previous nurse reported that Fentanyl patch was changed on Tues am as she understood him to say. He denies that patch was changed. Noted patch intact and covered to left upper arm with lots of writing on the covering. Spouse also reports that pts dose is a 25 mcg in addition to a 12 mcg to total 37 mcg of Fentanyl. Discussed with SUZY Nevarez who wishes to have MD address tomorrow. Pt and spouse sleeping when returned to the room to explain. Nurse did not awaken to discuss further
[2024-05-16] MEDS: ONDANSETRON 4MG/2ML VIAL 4 MG IV (02:14)
[2024-05-16 04:00] VITALS: BP 129/70; PULSE 70; RESP 18; TEMP 36.8; O2SAT 100; BMI 36.3
--- NOTE | 2024-05-16 05:36 | PC.NURSE ---
78 yo female pt admitted with UTI, N/V. Pt is A/O X 4. She has complained of pain and N/V throughout the shift despite giving meds as needed. She has had zofran, lorazepam and oxycodone. Most of the time, pt is dry heaving but she does bring up small amounts of clear mucus looking liquids. One one occasion it was noted that she did have a moderate amount of emesis. LEADITE MAN Wyatt Lomas made aware of pt status.
[2024-05-16] MEDS: LORazepam 2MG/ML VIAL 0.5 MG IV (06:14)
[2024-05-16 06:17] LABS: POC Glucose,Bedside 90 (70-110)
[2024-05-16] MEDS: IPRATROPIUM/ALBUTEROL 3 ML NEB IH ×2 (06:19→11:13)
[2024-05-16 06:20] VITALS: PULSE 73; PULSE 78; O2SAT 95
[2024-05-16 07:21] LABS: Albumin Level 3.4 g/dl (3.5-5.0); Chloride 106 mmol/L (98-107)
[2024-05-16 07:22] LABS: Potassium 3.5 mmoL/L (3.5-5.1); Sodium 141 mmol/L (136-145)
[2024-05-16 07:24] LABS: Anion Gap 9.5 mEq/L (5-15); Blood Urea Nitrogen 29 mg/dl (7-17); Carbon Dioxide 29 mmol/L (22.0-30.0); Creatinine Clearance Estimated 57 mL/min (50-200); Estimated Glomerular Filt Rate 40 ml/min (>60); GFR (African American) 48 ML/MIN (>60)
[2024-05-16 07:25] LABS: Alanine Aminotransferase 19 U/L (12-78); Albumin/Globulin Ratio 1.3 (1.1-1.8); Alkaline Phosphatase 116 U/L (38-126); Aspartate Amino Transferase 62 U/L (14-36); Bilirubin,Total 1.4 mg/dl (0.2-1.3); Globulin 2.6 g/dL (1.3-3.2); Glucose 80 mg/dl (74-100); Magnesium 2.1 mg/dl (1.6-2.3)
[2024-05-16] MEDS: BELLADONNA ALKALOIDS 60 ML ML PO (07:50)
[2024-05-16 08:00] VITALS: BP 188/73; PULSE 90; RESP 17; TEMP 36.7; O2SAT 94
[2024-05-16] MEDS: FAMOTIDINE 20MG TABLET 20 MG PO ×2 (08:38→20:15)
[2024-05-16] MEDS: EMPAGLIFLOZIN 10MG TABLET 10 MG PO (08:38)
[2024-05-16] MEDS: SPIRONOLACTONE 25MG TABLET 25 MG PO (08:38)
[2024-05-16] MEDS: FENTANYL 25 MCG TD (08:38)
[2024-05-16] MEDS: HYDROXYCHLOROQUINE SULFATE 200MG TABLET 200 MG PO ×2 (08:38→20:15)
[2024-05-16] MEDS: NYSTATIN CREAM 30GM/TUBE TP ×2 (08:39→20:19)
[2024-05-16] MEDS: BISOPROLOL 5MG TABLET 10 MG PO (08:39)
[2024-05-16] MEDS: APIXABAN 5MG TABLET 5 MG PO ×2 (08:39→20:15)
[2024-05-16] MEDS: CITALOPRAM 20MG TABLET 20 MG PO (08:39)
[2024-05-16 08:45] LABS: Basophils % 0.2 % (0.1-2.0); Eosinophils % 0.1 % (0.1-12.0); Hemoglobin 8.4 g/dL (12.2-16.2); Lymphocytes # 0.6 K/mm3 (0.7-4.5); Lymphocytes % 10.6 % (10-50); Mean Corpuscular Hemoglobin 28.5 pg (27.0-31.2); Mean Corpuscular Volume 98.5 fl (81-99); Mean Platelet Volume 9.9 fl (7.4-10.4); Monocytes # 0.3 K/mm3 (0.1-1.0); Monocytes % 6.1 % (1.7-9.3); Neutrophils # 4.6 K/mm3 (1.8-7.8); Neutrophils % 82.9 % (37.0-80.0); Platelet Count 165 K/mm3 (142-424); Red Blood Count 2.95 M/mm3 (4.20-5.40); Red Cell Distribution Width 20.8 % (11.5-17.5); White Blood Count 5.5 K/mm3 (4.8-10.8)
--- NOTE | 2024-05-16 11:00 | PC.NURSE ---
IV accessed lost at this time. IV attempted x2 with ultrasound unsuccessful. Discussed with MD. MD will change IV meds to PO due to hospice status. Pt and family in agree with POC.
[2024-05-16 11:15] VITALS: PULSE 81; O2SAT 99
[2024-05-16] MEDS: ONDANSETRON 4MG ODT 4 MG SL ×2 (11:36→18:26)
[2024-05-16] MEDS: LORazepam 0.5MG TABLET 0.5 MG PO (11:41)
[2024-05-16] MEDS: FUROSEMIDE 80 MG TABLET PO (11:41)
[2024-05-16 11:50] LABS: POC Glucose,Bedside 96 (70-110)
--- NOTE | 2024-05-16 14:26 | SW/DCPLANNER ---
Addendum entered by Arianne Prescott 05/22/24 11:22: I have updated [facility] w/ Hospice that the plan is for this patient to discharge home today. Addendum entered by Arianne Prescott 05/17/24 15:02: Per patient/family the plan is for patient to discharge home w/ daughter (Clari) and continue services w/ [facility]. Addendum entered by Arianne Prescott 05/17/24 13:37: I have updated [facility] that patient will not admit under Hospice respite today. Original Note: Patient is currently established w/ [facility] at home. Patient was admitted due to nausea and vomiting. Per Field Automobile Adjuster (Jaimie) patient did make her daughters healthcare surrogates last week. Patient's is NOT aware of this change. The plan for this patient is to discharge from [facility] acute setting tomorrow morning and be admitted at hospital under Hospice respite care tomorrow. Patient's family is aware of all protocol for respite care and visitation hours. Per Aliza balderas/ [facility] patient will have five days respite and be ready for discharge on 05/21/24. I will continue to follow up w/ patient, family, MD and [facility]. Aliza balderas/ [facility] stated that she will be at [facility] in AM to speak w/ patient and family.
--- NOTE | 2024-05-16 14:48 | EXP.ACUTE.PN ---
Subjective *Date: 05/16/24 *Time: 15:22 Medical Exam Vital signs and Labs for Last 24 Hours: Vital Signs Temp Pulse Pulse Resp BP BP Pulse Ox 05/16/24 13:00 05/16/24 11:15 81 05/16/24 11:15 81 05/16/24 11:15 99 05/16/24 11:00 05/16/24 09:00 05/16/24 08:00 05/16/24 08:00 98.1 F 90 17 188/73 H 94 L 05/16/24 06:49 05/16/24 06:20 73 05/16/24 06:20 78 05/16/24 06:20 95 05/16/24 05:00 05/16/24 04:00 98.2 F 70 18 129/70 100 05/16/24 03:00 05/16/24 01:00 05/15/24 23:44 88 05/15/24 23:43 05/15/24 23:00 05/15/24 21:00 05/15/24 20:00 99.4 F 80 18 138/84 98 05/15/24 20:00 05/15/24 18:11 05/15/24 18:06 05/15/24 18:00 05/15/24 18:00 05/15/24 17:00 98.3 F 85 20 125/50 L 94 L 05/15/24 16:53 98.3 F 87 20 142/87 H 05/15/24 16:46 76 125/50 L 99 05/15/24 16:43 82 152/73 H 98 O2 Del Method O2 Flow Rate FiO2 05/16/24 13:00 Nasal Cannula 2 05/16/24 11:15 05/16/24 11:15 05/16/24 11:15 Nasal Cannula 1 05/16/24 11:00 Nasal Cannula 2 05/16/24 09:00 Nasal Cannula 2 05/16/24 08:00 Nasal Cannula 2 05/16/24 08:00 05/16/24 06:49 Nasal Cannula 3 05/16/24 06:20 05/16/24 06:20 05/16/24 06:20 Nasal Cannula 2 05/16/24 05:00 Nasal Cannula 3 05/16/24 04:00 2 05/16/24 03:00 Nasal Cannula 05/16/24 01:00 Nasal Cannula 3 05/15/24 23:44 05/15/24 23:43 Nasal Cannula 2 28 05/15/24 23:00 Nasal Cannula 3 05/15/24 21:00 Nasal Cannula 3 05/15/24 20:00 Nasal Cannula 2 05/15/24 20:00 Nasal Cannula 3 05/15/24 18:11 Nasal Cannula 3 05/15/24 18:06 Nasal Cannula 3 05/15/24 18:00 Nasal Cannula 3 05/15/24 18:00 Nasal Cannula 3 05/15/24 17:00 Room Air 05/15/24 16:53 Room Air 05/15/24 16:46 05/15/24 16:43 Intake and Output 05/15/24 05/16/24 05/16/24 23:59 07:59 15:59 Output Total 750 / 750 Balance -750 / -750 Output: Output, Urine Amount 750 / 750 Other: Number of Unmeasured Voids 0 Weight 98.911 kg 98.911 kg Patient Weight 05/16/24 23:59 Weight 98.911 kg Laboratory Results - last 24 hr 05/15/24 20:43: POC Glucose 117 H 05/16/24 05:56: Sodium 141, Potassium 3.5, Chloride 106, Carbon Dioxide 29, Anion Gap 9.5, BUN 29 H, Creatinine 1.30 H, Estimated Creat Clear 57, Estimated GFR 40 L, Est GFR ( Amer) 48 L, Glucose 80 D, Calcium 8.0 L, Magnesium 2.1, Total Bilirubin 1.4 H, AST 62 H, ALT 19 D, Alkaline Phosphatase 116, Total Protein 6.0 L, Albumin 3.4 L D, Globulin 2.6, Albumin/Globulin Ratio 1.3 05/16/24 06:09: POC Glucose 90 05/16/24 08:35: WBC 5.5, RBC 2.95 L, Hgb 8.4 L, Hct 29.0 L, MCV 98.5, MCH 28.5, MCHC 29.0 L, RDW 20.8 H, Plt Count 165, MPV 9.9, Neut % (Auto) 82.9 H, Lymph % (Auto) 10.6, [place] % (Auto) 6.1, Eos % (Auto) 0.1, Baso % (Auto) 0.2, Neut # (Auto) 4.6, Lymph # (Auto) 0.6 L, [place] # (Auto) 0.3, Eos # (Auto) 0.0, Baso # (Auto) 0.0 05/16/24 11:40: POC Glucose 96 I & O for Labs for Last 24 Hours: Intake & Output 05/13/24 05/14/24 05/15/24 05/16/24 23:59 23:59 23:59 23:59 Output Total 750 / 750 Balance -750 / -750 Weight 98.911 kg 98.911 kg Constitutional: Present no acute distress, obese, chronically ill appearing and cooperative Head: Present normocephalic ENT: Present normal exam Neck: Present normal inspection Respiratory: Present prolonged expiratory phase and diminished air movement; Absent respiratory distress, wheezes or crackles Cardiac: Present Reg Rate and Rhythm, S1/S2 and No Murmur GI: Present soft and normal bowel sounds Extremities: Present normal capillary refill and edema (trace) Comment:: trace Skin: Present intact, dry and rash Comment:: Erythematous rash in skin folds under breasts and fold of abdomen consistent with yeast/intertrigo Neuro: Present alert, awake and moves all extremities Comment:: decreased sensation in feet; oriented to self and place. Improving mentation. Assessment and Plan *Assessment and plan (1) Abdominal pain: Status: Acute Qualifiers: Abdominal location: generalized Qualified Code(s): R10.84 - Generalized abdominal pain Category: Medical Code(s): R10.9 - Unspecified abdominal pain (2) Nausea & vomiting: Status: Acute Qualifiers: Vomiting type: unspecified Qualified Code(s): R11.2 - Nausea with vomiting, unspecified Category: Medical Code(s): R11.2 - Nausea with vomiting, unspecified (3) Elevated troponin: Status: Acute Category: Medical Code(s): R79.89 - Other specified abnormal findings of blood chemistry (4) Candidal intertrigo: Status: Acute Category: Medical Code(s): B37.2 - Candidiasis of skin and nail (5) Diabetes: Status: Chronic Qualifiers: Diabetes mellitus complication status: with other specified complication Diabetes mellitus termite inspector insulin use: with intermediate use Diabetes mellitus type: type 2 Qualified Code(s): E11.69 - Type 2 diabetes mellitus with other specified complication; Z79.4 - joint terminal attack controller (current) use of insulin Category: Medical Code(s): E11.9 - Type 2 diabetes mellitus without complications (6) Hypertension: Status: Acute Qualifiers: Hypertension type: primary hypertension Qualified Code(s): I10 - Essential (primary) hypertension Category: Medical Code(s): I10 - Essential (primary) hypertension (7) Hospice care patient: Status: Acute Category: Medical Code(s): Z51.5 - Encounter for palliative care (8) Polypharmacy: Status: Chronic Category: Medical Code(s): Z79.899 - Other intermediate (current) drug therapy (9) Chronic narcotic use: Status: Chronic Category: Social Hx Code(s): F11.90 - Opioid use, unspecified, uncomplicated (10) Lumbosacral radiculopathy due to degenerative joint disease of spine: Status: Chronic Category: Medical Code(s): M47.27 - Other spondylosis with radiculopathy, lumbosacral region (11) Chronic hypoxemic respiratory failure: Status: Chronic Category: Medical Code(s): J96.11 - Chronic respiratory failure with hypoxia (12) CKD (chronic kidney disease) stage 3, GFR 30-59 ml/min: Status: Acute Qualifiers: Chronic kidney disease stage 3 subtype: stage 3a (GFR 45-59) Qualified Code(s): N18.31 - Chronic kidney disease, stage 3a Category: Medical Code(s): N18.30 - Chronic kidney disease, stage 3 unspecified Plan 78-year-old female with multiple comorbidities who presented with nausea and vomiting and abdominal pain to the ER. Workup with fairly unremarkable labs however unable to obtain control of patient's nausea and vomiting. Medicine consulted for admission. Discussed case with ER, request admission for further medical management, fluids, serial labs. I agreed to admit. Patient having active nausea upon arrival to the floor. Denies any marla chest pain. Patient is a hospice patient and has been with hospice for at least a month and a half. Recently stopped Xanax, concerned she may be having withdrawal symptoms. No clear indication of infection at this time. Nausea improving. Continue diabetic diet. Problems addressed as follows: Abdominal pain Intractable nausea and vomiting -Recent abrupt cessation of Xanax along with significant dosing of guaifenesin. Concern for withdrawal from Xanax versus medication side effect. -Continue Ativan 0.5 mg PO as needed every 8 hours. Seeing them nausea -Continue Zofran 4 mg every 6 hours as needed IV - Personally reviewed CT of abdomen, concern for ascites and abnormal appearance of liver consistent with cirrhosis; I believe this has been mentioned to the patient and before however this new seems to be new to them. Will further discuss tomorrow with goals of care and rediscussion about hospice. Nothing to do acutely at this time -Resume Lasix 40 mg daily with addition of spironolactone 25 mg daily for ascites management -Kidney function normal with BUN 29, creatinine 1.3. Potassium 3.5. Magnesium 2.1. Repeat CBC, CMP, magnesium ordered for the morning. long-term indwelling catheter, recurrent UTIs -Urine negative for nitrate, 1+ leuk esterase, 1+ yeast. 3-5 white cells. In the setting of long-term indwelling catheter, will hold on further treatment. Urine culture pending. White count normal at 5.5 Polypharmacy Chronic benzodiazepine and opiate use. - Continue oxycodone 10 mg every 6 hours. Continue gabapentin 600 mg every 6 hours. - Concern for component of withdrawal from benzodiazepine given abrupt cessation last Tuesday prior to onset of symptoms. Resume low-dose lorazepam. Will senior counsel on taper at discharge pending goals of care unless plan is to resume given her hospice status. Diabetes: Continue to glargine at reduced dose of 25 units nightly. Sliding scale insulin with fingersticks ACHS Extensive discussion with family today about goals of care. Patient would benefit from respite care with hospice. Transition to respite care tomorrow. DNR/DNI On Eliquis Diabetic diet
--- NOTE | 2024-05-16 14:48 | EXP.EVENT.NO ---
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 The patient's active diagnoses are of sufficient risk that focused discussion on advanced care planning is indicated in order to allow the patient to thoughtfully consider personal goals of care; and, if situations arise that prevent the ability to personally give input, to ensure appropriate representation of their personal desires through documentation or informed surrogate decision makers. Discussion: Persons present and participating in discussion: grey roll worker, Arianne Prescott ([facility] social service worker), myself, patient's 2 daughters, patient, Discussion: Discussed patient's progressive symptoms, her nausea and vomiting and ileus. Discussed the competing factors of treatment for her chronic conditions and symptoms/side effects that they are causing. Discussed goals of care including hospice and risks of pain medication usage causing her to be less responsive but treating her abdominal pain and likely causing worsening of her bowel dysfunction. She discussed respite for the patient and her family. Patient wants to proceed with staying in the hospital for now and trying to treat her bowel dysfunction. Understand she is not a surgical candidate. Prognosis is poor, if unable to tolerate p.o. intake, explained to her and family that she would have days to weeks at best to live. Has been having a hard time with self-care. Discussed at length with him and family and hospice admitting clerk the need for him to take a break as he was recently admitted to the hospital last week. Plan to have him take respite during the days for at least the next 2 days to get some rest, go home, do self-care. Spouse reluctant but agreeable. Patient stressed importance of him taking care of himself, this seems to have more of an impact. Continue with DNR status, if no improvement in the coming days we will likely transition home with hospice to her daughter's house. Time spent: Total time spent [id number] in education and discussion directly related to advance care plannin minutes Shun Oconnell 05/16/2024 13:40-14:32
[2024-05-16 15:59] VITALS: BP 147/74; PULSE 82; RESP 17; TEMP 36.8; O2SAT 99
[2024-05-16] MEDS: PROMETHAZINE 25MG TABLET 25 MG PO (16:02)
[2024-05-16] MEDS: ACETAMINOPHEN 500MG TAB 500 MG PO (16:02)
[2024-05-16] MEDS: MORPHINE 4MG/ML SYRINGE 4 MG IV (18:26)
[2024-05-16] MEDS: BISACODYL 10MG SUPP 10 MG RC (18:27)
[2024-05-16 20:00] VITALS: BP 118/59; PULSE 70; RESP 16; TEMP 36.9; O2SAT 98
[2024-05-16 20:12] LABS: POC Glucose,Bedside 130 (70-110)
[2024-05-16] MEDS: MELATONIN 5MG TABLET 10 MG PO (20:15)
[2024-05-16] MEDS: INSULIN GLARGINE 100 UNITS/ML 10ML VIAL 25 UNIT SQ (20:16)
[2024-05-17] VITALS (8 sets, daily range): BP systolic 92–131; BP diastolic 46–60; PULSE 73–95; RESP 17–18; TEMP 36.7–37.8; O2SAT 90–100; BMI 36.3; BMI 35.9
[2024-05-17] MEDS: IPRATROPIUM/ALBUTEROL 3 ML NEB IH ×5 (00:04→23:54)
[2024-05-17] MEDS: OXYCODONE 5MG IMMEDIATE RELEASE TABLET 10 MG PO ×2 (00:11→06:06)
[2024-05-17] MEDS: GABAPENTIN 600MG TABLET 600 MG PO ×2 (00:11→06:06)
[2024-05-17] MEDS: PROMETHAZINE 25MG TABLET 25 MG PO (00:35)
--- NOTE | 2024-05-17 00:37 | PC.NURSE ---
PATIENT C/O NAUSEA. DENIES VOMITING. REFUSED N/G TUBE. MEDICATED WITH PHENERGAN 25MG PO.
[2024-05-17] MEDS: ONDANSETRON 4MG ODT 4 MG SL ×2 (04:17→12:00)
--- NOTE | 2024-05-17 04:19 | PC.NURSE ---
c/o nausea. dry heaves. Refused n/g tube. Medicated with zofran 4 mp po.
[2024-05-17 05:26] LABS: POC Glucose,Bedside 94 (70-110)
--- NOTE | 2024-05-17 06:37 | PC.NURSE ---
Skin w/d/pale. oxycodone 10 mg po scheduled. c/o nausea after duo nebs. nausea controlled with po phenergan/zofran. has not vomited this shift. SRNA reported stool passed earlier was dark.
[2024-05-17 08:59] LABS: Basophils % 0.2 % (0.1-2.0); Eosinophils # 0.1 K/mm3 (0.0-0.4); Eosinophils % 1.2 % (0.1-12.0); Hematocrit 26.7 % (37.0-47.0); Hemoglobin 7.8 g/dL (12.2-16.2); Lymphocytes # 0.7 K/mm3 (0.7-4.5); Lymphocytes % 13.8 % (10-50); Mean Corpuscular HGB Conc 29.4 g/dL (31.8-35.4); Mean Corpuscular Hemoglobin 28.6 pg (27.0-31.2); Mean Corpuscular Volume 97.6 fl (81-99); Mean Platelet Volume 9.4 fl (7.4-10.4); Monocytes # 0.3 K/mm3 (0.1-1.0); Neutrophils # 3.7 K/mm3 (1.8-7.8); Neutrophils % 77.8 % (37.0-80.0); Platelet Count 146 K/mm3 (142-424); Red Blood Count 2.74 M/mm3 (4.20-5.40); Red Cell Distribution Width 20.5 % (11.5-17.5); White Blood Count 4.8 K/mm3 (4.8-10.8)
[2024-05-17 09:01] LABS: Albumin Level 3.1 g/dl (3.5-5.0); Chloride 104 mmol/L (98-107); Sodium 141 mmol/L (136-145)
[2024-05-17 09:03] LABS: Anion Gap 6.6 mEq/L (5-15); Blood Urea Nitrogen 26 mg/dl (7-17); Carbon Dioxide 33 mmol/L (22.0-30.0); Creatinine Clearance Estimated 53 mL/min (50-200); Estimated Glomerular Filt Rate 36 ml/min (>60); GFR (African American) 44 ML/MIN (>60)
[2024-05-17 09:04] LABS: Alanine Aminotransferase 18 U/L (12-78); Albumin/Globulin Ratio 1.3 (1.1-1.8); Alkaline Phosphatase 89 U/L (38-126); Aspartate Amino Transferase 34 U/L (14-36); Bilirubin,Total 1.1 mg/dl (0.2-1.3); Calcium 7.7 mg/dl (8.4-10.2); Globulin 2.4 g/dL (1.3-3.2); Glucose 88 mg/dl (74-100); Total Protein,Serum 5.5 g/dl (6.3-8.2)
--- NOTE | 2024-05-17 09:09 | XR_ITS ---
FINAL REPORT CLINICAL HISTORY: ileus?? FINDINGS: A single supine view of the abdomen and pelvis were obtained. There are air-filled moderately distended bowel loops and an air-filled, distended stomach that may represent an ileus. Postoperative changes are noted in the abdomen and pelvis. Severe degenerative changes are noted of the spine with changes of fusion at L2-3. IMPRESSION: Air-filled bowel loops and stomach that may represent an ileus. Postoperative changes in the abdomen and pelvis. Authenticated and ERN
[2024-05-17] MEDS: PANTOPRAZOLE 40MG VIAL 40 MG IV ×2 (09:15→20:17)
[2024-05-17 09:18] LABS: Potassium 2.6 mmoL/L (3.5-5.1)
[2024-05-17] MEDS: CITALOPRAM 20MG TABLET 20 MG PO (09:57)
[2024-05-17] MEDS: HYDROXYCHLOROQUINE SULFATE 200MG TABLET 200 MG PO ×2 (09:58→20:17)
[2024-05-17] MEDS: FAMOTIDINE 20MG TABLET 20 MG PO ×2 (09:58→20:17)
[2024-05-17] MEDS: EMPAGLIFLOZIN 10MG TABLET 10 MG PO (09:58)
[2024-05-17] MEDS: NYSTATIN CREAM 30GM/TUBE TP ×4 (09:59→20:19)
[2024-05-17] MEDS: BISOPROLOL 5MG TABLET 10 MG PO (09:59)
[2024-05-17] MEDS: MORPHINE 4MG/ML SYRINGE 4 MG IV ×2 (12:00→16:04)
[2024-05-17] MEDS: LIDOCAINE 2% UROJET 10ML 10 ML UR (12:01)
[2024-05-17 12:33] LABS: POC Glucose,Bedside 120 (70-110)
[2024-05-17] MEDS: KCl 20mEq/100ml 100 ML 50 MEQ IV ×2 (12:33→14:37)
[2024-05-17] MEDS: LORazepam 0.5MG TABLET 0.5 MG PO (13:06)
[2024-05-17] MEDS: LIDOCAINE 2% VISCOUS SOL 15ML UDC 5 ML PO (13:07)
--- NOTE | 2024-05-17 13:25 | XR_ITS ---
FINAL REPORT CLINICAL HISTORY: NG placement COMPARISON: Prior exam dated 05/17/2024 FINDINGS: SINGLE VIEW ABDOMEN A single view of the abdomen was obtained. In the interval since the prior exam an NG tube has been placed with its tip in the body of the stomach. Again noted is a distended air-filled stomach. Postsurgical changes from a posterior lumbar fusion are again noted. No abnormal calcifications are identified. IMPRESSION: NG tube is present with its tip in the body of the stomach. The stomach remains distended and air-filled. Reviewed, Interpreted and Dictated by Samuel Schneider III, MD Transcribed by Jade Cabrera Authenticated and [facility]
--- NOTE | 2024-05-17 15:22 | PC.NURSE ---
Addendum entered by Josesito Krueger RN 05/17/24 15:25: pt family educated on patient dietary restrictions r/t ng tube. Original Note: aox4 this shift. has spent the shift resting in bed with family at bedside. 12 fr ng tube paced to r nare 60 atn, currently to lws, cxray performed to confirm placement. holm cath to bedside drain. okay with sips and chips as directed by nursing. medicated per mar for pain and anxiety. received one dose of prn zofran today. 2lnc for o2 support.
[2024-05-17 16:14] LABS: POC Glucose,Bedside 106 (70-110)
[2024-05-17] MEDS: PROMETHAZINE HCL 25MG/ML 1ML VIAL 25 MG IV (17:02)
--- NOTE | 2024-05-17 18:44 | P.PN_ITS ---
Subjective *Date: 05/17/24 *Time: 18:47 Interval history: Patient continued to have some mild nausea overnight. Developed more vomiting this morning. Discussed on rounds placing an NG. Has been concerned about her abdomen. Discussed that surgical candidate from previous evaluations by multiple providers. Patient does not want invasive testing. Will attempt decompression. Continue with hospice care. Continue with 2 L nasal cannula oxygen. O2 sats are acceptable. Labs reviewed this morning, has significant hypokalemia. Replacing IV. Medical Exam Vital signs and Labs for Last 24 Hours: Vital Signs Temp Pulse Pulse Resp BP Pulse Ox O2 Del Method 05/17/24 18:28 83 05/17/24 18:28 82 05/17/24 18:28 Nasal Cannula 05/17/24 18:14 Nasal Cannula 05/17/24 17:00 Nasal Cannula 05/17/24 15:59 100.0 F H 73 17 117/46 L 100 Room Air 05/17/24 15:00 Nasal Cannula 05/17/24 13:00 Nasal Cannula 05/17/24 11:35 82 05/17/24 11:35 78 05/17/24 11:35 98 Nasal Cannula 05/17/24 11:00 Nasal Cannula 05/17/24 09:00 Nasal Cannula 05/17/24 08:00 Nasal Cannula 05/17/24 07:31 98.1 F 84 18 131/60 91 L Nasal Cannula 05/17/24 06:32 Nasal Cannula 05/17/24 06:00 95 H 05/17/24 06:00 75 05/17/24 06:00 99 Nasal Cannula 05/17/24 05:00 Nasal Cannula 05/17/24 03:00 Nasal Cannula 05/17/24 01:00 Nasal Cannula 05/17/24 00:06 80 05/17/24 00:06 80 05/16/24 23:00 Nasal Cannula 05/16/24 21:00 Nasal Cannula 05/16/24 20:00 98.4 F 70 16 118/59 L 98 Nasal Cannula 05/16/24 20:00 98 Room Air 05/16/24 18:59 Nasal Cannula O2 Flow Rate 05/17/24 18:28 05/17/24 18:28 05/17/24 18:28 2 05/17/24 18:14 2 05/17/24 17:00 2 05/17/24 15:59 05/17/24 15:00 2 05/17/24 13:00 2 05/17/24 11:35 05/17/24 11:35 05/17/24 11:35 2 05/17/24 11:00 2 05/17/24 09:00 2 05/17/24 08:00 2 05/17/24 07:31 2 05/17/24 06:32 2 05/17/24 06:00 05/17/24 06:00 05/17/24 06:00 3 05/17/24 05:00 2.5 05/17/24 03:00 2.5 05/17/24 01:00 2.5 05/17/24 00:06 05/17/24 00:06 05/16/24 23:00 2.5 05/16/24 21:00 2.5 05/16/24 20:00 2.5 05/16/24 20:00 2.5 05/16/24 18:59 2 Intake and Output 05/17/24 05/17/24 05/17/24 07:59 15:59 23:59 Intake Total 200 / 620 420 / 620 Output Total 750 / 1000 0 / 1000 250 / 1000 Balance -550 / -380 420 / -380 -250 / -380 Intake: Intake, Oral Amount 200 / 620 420 / 620 Output: Output, Urine Amount 750 / 750 0 / 750 0 / 750 Output, Urine Amount (Catheter) 250 / 250 Huynh 250 / 250 Other: Number of Unmeasured Voids 0 0 0 Number of Bowel Movements 1 Weight 98.912 kg 98 kg Patient Weight 05/17/24 23:59 Weight 98 kg Laboratory Results - last 24 hr 05/15/24 08:22: Urine Color Yellow, Urine Appearance Sl cloudy, Urine pH 6.0, Ur Specific C[place]horn >= 1.030, Urine Protein 1+, Urine Glucose (UA) Trace, Urine Ketones Trace, Urine Blood 1+, Urine Nitrate Negative, Urine Bilirubin 1+ A, Urine Urobilinogen 0.2, Ur Leukocyte Esterase 1+ A, Urine RBC 3-5, Urine WBC 3- 5, Ur Squamous Epith Cells Occasional, Urine Bacteria Trace, Urine Yeast 1+ 05/16/24 20:05: POC Glucose 130 H 05/17/24 05:19: POC Glucose 94 05/17/24 08:30: WBC 4.8, RBC 2.74 L, Hgb 7.8 L, Hct 26.7 L, MCV 97.6, MCH 28.6, MCHC 29.4 L, RDW 20.5 H, Plt Count 146, MPV 9.4, Neut % (Auto) 77.8, Lymph % (Auto) 13.8, [place]bert % (Auto) 7.0, Eos % (Auto) 1.2, Baso % (Auto) 0.2, Neut # (Auto) 3.7, Lymph # (Auto) 0.7, [place]bert # (Auto) 0.3, Eos # (Auto) 0.1, Baso # (Auto) 0.0, Sodium 141, Potassium 2.6 L* D, Chloride 104, Carbon Dioxide 33 H, Anion Gap 6.6, BUN 26 H, Creatinine 1.40 H, Estimated Creat Clear 53, Estimated GFR 36 L, Est GFR ( Amer) 44 L, Glucose 88, Calcium 7.7 L, Magnesium 2.0, Total Bilirubin 1.1, AST 34 D, ALT 18, Alkaline Phosphatase 89, Total Protein 5.5 L, Albumin 3.1 L, Globulin 2.4, Albumin/Globulin Ratio 1.3 05/17/24 12:26: POC Glucose 120 H 05/17/24 16:01: POC Glucose 106 I & O for Labs for Last 24 Hours: Intake & Output 05/14/24 05/15/24 05/16/24 05/17/24 23:59 23:59 23:59 23:59 Intake Total 120 / 320 620 / 620 Output Total 750 / 750 1000 / 1000 Balance -630 / -430 -380 / -380 Weight 98.911 kg 98.911 kg 98 kg Microbiology Reports for the Last 24 Hours: Microbiology 05/15/24 08:22 Urine,Clean Catch Urine Culture - Preliminary Gram Negative Rods Constitutional: Present mild distress, obese, chronically ill appearing and cooperative Head: Present normocephalic ENT: Present normal exam Neck: Present normal inspection Respiratory: Present prolonged expiratory phase and diminished air movement; Absent respiratory distress, wheezes or crackles Cardiac: Present Reg Rate and Rhythm, S1/S2 and No Murmur GI: Present soft, distention, tenderness (Diffuse, nonfocal) and hypoactive bowel sounds Extremities: Present normal capillary refill and edema (trace) Comment:: trace Skin: Present intact, dry and rash Comment:: Erythematous rash in skin folds under breasts and fold of abdomen consistent with yeast/intertrigo Neuro: Present alert, awake and moves all extremities Comment:: decreased sensation in feet; oriented to self and place. Improving mentation. Assessment and Plan *Assessment and plan (1) Ileus: Status: Acute Category: Medical Code(s): K56.7 - Ileus, unspecified (2) Abdominal pain: Status: Acute Qualifiers: Abdominal location: generalized Qualified Code(s): R10.84 - Generalized abdominal pain Category: Medical Code(s): R10.9 - Unspecified abdominal pain (3) Nausea & vomiting: Status: Acute Qualifiers: Vomiting type: unspecified Qualified Code(s): R11.2 - Nausea with vomiting, unspecified Category: Medical Code(s): R11.2 - Nausea with vomiting, unspecified (4) Elevated troponin: Status: Acute Category: Medical Code(s): R79.89 - Other specified abnormal findings of blood chemistry (5) Candidal intertrigo: Status: Acute Category: Medical Code(s): B37.2 - Candidiasis of skin and nail (6) Diabetes: Status: Chronic Qualifiers: Diabetes mellitus type: type 2 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 shearer operator insulin use: with longwall shearer operator use Diabetes mellitus complication status: with other specified complication Qualified Code(s): E11.69 - Type 2 diabetes mellitus with other specified complication; Z79.4 - manager long term care (current) use of insulin Category: Medical Code(s): E11.9 - Type 2 diabetes mellitus without complications (7) Hypertension: Status: Acute Qualifiers: Hypertension type: primary hypertension Qualified Code(s): I10 - Essential (primary) hypertension Category: Medical Code(s): I10 - Essential (primary) hypertension (8) Hospice care patient: Status: Acute Category: Medical Code(s): Z51.5 - Encounter for palliative care (9) Polypharmacy: Status: Chronic Category: Medical Code(s): Z79.899 - Other senior care (current) drug therapy (10) Chronic narcotic use: Status: Chronic Category: Social Hx Code(s): F11.90 - Opioid use, unspecified, uncomplicated (11) Lumbosacral radiculopathy due to degenerative joint disease of spine: Status: Chronic Category: Medical Code(s): M47.27 - Other spondylosis with radiculopathy, lumbosacral region (12) Chronic hypoxemic respiratory failure: Status: Chronic Category: Medical Code(s): J96.11 - Chronic respiratory failure with hypoxia (13) CKD (chronic kidney disease) stage 3, GFR 30-59 ml/min: Status: Acute Qualifiers: Chronic kidney disease stage 3 subtype: stage 3a (GFR 45-59) Qualified Code(s): N18.31 - Chronic kidney disease, stage 3a Category: Medical Code(s): N18.30 - Chronic kidney disease, stage 3 unspecified Plan 78-year-old female with multiple comorbidities who presented with nausea and vomiting and abdominal pain to the ER. Workup with fairly unremarkable labs however unable to obtain control of patient's nausea and vomiting. Medicine consulted for admission. Discussed case with ER, request admission for further medical management, fluids, serial labs. I agreed to admit. Patient having active nausea upon arrival to the floor. Denies any marla chest pain. Patient is a hospice patient and has been with hospice for at least a month and a half. Recently stopped Xanax, concerned she may be having withdrawal symptoms. Other concerns that she has medication induced ileus or progression of her abdominal pathology. Persistent nausea. Placing NG today. Continues to require inpatient management. Initiate IV fluids. Problems addressed as follows: Ileus Abdominal pain Intractable nausea and vomiting -Recent abrupt cessation of Xanax along with significant dosing of guaifenesin. Concern for withdrawal from Xanax versus medication side effect. Additional concern for medication induced ileus given her high-dose opiate therapy with her fentanyl patches and opiates orally for pain. -Continue Ativan 0.5 mg PO as needed every 8 hours. -Continue Zofran 4 mg every 6 hours as needed IV; Phenergan 25 mg as needed every 6 hours for nausea -Repeat KUB ordered this morning, per my review has worsening ileus with gaseous distention of bowels. NG placed. Continue low wall suction -Holding Lasix and spironolactone. Consider resumption daily for ascites management -BUN 26, creatinine at baseline 1.4. Potassium low at 2.6. Replacing IV today. Magnesium normal at 2.0. long-term indwelling catheter, recurrent UTIs -Urine negative for nitrate, 1+ leuk esterase, 1+ yeast. 3-5 white cells. In the setting of long-term indwelling catheter, will hold on further treatment. Urine culture pending. White count normal at 4.8. Urine culture growing 50,000 units gram-negative rods. Awaiting speciation and sensitivity Anemia: Worsening with hemoglobin 7.8. Transfusion threshold with hemoglobin less than 7. Repeat CBC, CMP, magnesium ordered for Polypharmacy Chronic benzodiazepine and opiate use. - Continue oxycodone 10 mg every 6 hours. Continue gabapentin 600 mg every 6 hours. - Concern for component of withdrawal from benzodiazepine given abrupt cessation last Tuesday prior to onset of symptoms. Resume low-dose lorazepam. Will director of counseling on taper at discharge pending goals of care unless plan is to resume given her hospice status. Diabetes: Continue to glargine at reduced dose of 25 units nightly. Sliding scale insulin with fingersticks ACHS Extensive discussion with family today about goals of care. Treating patient as though she is on respite care at this time. Encouraged to take a break and go home and rest and take care of himself. Concern for caregiver exhaustion. He was admitted to the hospital a week ago due to lack of self- care. instructed to go home during the day from 11 AM to 7 PM for rest and a nap so he can spend the night with her in the hospital. DNR/DNI Holding Eliquis with worsening anemia. N.p.o., IV fluids today with 1 L LR
[2024-05-17] MEDS: LACTATED RINGERS 1000ML 1,000 ML 150 ML IV (19:46)
[2024-05-17] MEDS: MELATONIN 5MG TABLET 10 MG PO (20:17)
[2024-05-17 20:22] LABS: POC Glucose,Bedside 97 (70-110)
[2024-05-18] MEDS: GABAPENTIN 600MG TABLET 600 MG PO ×2 (00:16→15:58)
[2024-05-18] MEDS: OXYCODONE 5MG IMMEDIATE RELEASE TABLET 10 MG PO ×3 (00:16→18:33)
[2024-05-18] MEDS: LORazepam 0.5MG TABLET 0.5 MG PO ×2 (01:08→16:45)
[2024-05-18] MEDS: MORPHINE 4MG/ML SYRINGE 4 MG IV ×2 (01:26→05:14)
--- NOTE | 2024-05-18 01:31 | PC.NURSE ---
PATIENT RECEIVED ATIVAN 0.5 MG PO AT 0108 FOR ANXIETY. WAS BECOMING AGGITATED. AT 0126 PATIENT C/O PAIN 7/10 ABDOMEN AND RIGHT LEG. MEDICATED WITH MORPHINE 4 MG IVP. TAKING ICE CHIPS. TOLERATING WELL. N/G TO CONT LWS.
--- NOTE | 2024-05-18 02:03 | PC.NURSE ---
RESTING QUIETLY IN BED. N/G TO CONT. LWS. SECRETIONS LOOK LIKE WATER. HAS ICE CHIPS AT BEDSIDE. RIGHT LOWER LEG VENUS WRAP INTACT. SKELTON CATH TO BSD, URINE CLEAR YELLOW. TURNED Q 2 HRS, 2 ASSIST. 02 AT 2LNC, SPOUSE RESTLESS AND FINALLY AT BEDSIDE RECLINER ASLEEP.
[2024-05-18 04:00] VITALS: BP 149/72; PULSE 71; RESP 16; TEMP 36.9; O2SAT 93; BMI 36.8
[2024-05-18 05:15] LABS: POC Glucose,Bedside 121 (70-110)
[2024-05-18] MEDS: IPRATROPIUM/ALBUTEROL 3 ML NEB IH ×2 (06:10→12:32)
[2024-05-18 06:11] VITALS: PULSE 72; PULSE 75; O2SAT 97
[2024-05-18 06:55] LABS: Basophils % 0.3 % (0.1-2.0); Eosinophils # 0.1 K/mm3 (0.0-0.4); Eosinophils % 2.8 % (0.1-12.0); Hematocrit 26.9 % (37.0-47.0); Hemoglobin 7.7 g/dL (12.2-16.2); Lymphocytes # 0.8 K/mm3 (0.7-4.5); Lymphocytes % 19.6 % (10-50); Mean Corpuscular HGB Conc 28.8 g/dL (31.8-35.4); Mean Corpuscular Hemoglobin 28.6 pg (27.0-31.2); Mean Corpuscular Volume 99.6 fl (81-99); Mean Platelet Volume 8.9 fl (7.4-10.4); Monocytes # 0.3 K/mm3 (0.1-1.0); Monocytes % 7.2 % (1.7-9.3); Neutrophils # 2.7 K/mm3 (1.8-7.8); Neutrophils % 70.1 % (37.0-80.0); Platelet Count 133 K/mm3 (142-424); Red Cell Distribution Width 20.9 % (11.5-17.5); White Blood Count 3.9 K/mm3 (4.8-10.8)
[2024-05-18 07:06] LABS: Chloride 105 mmol/L (98-107); Potassium 3.1 mmoL/L (3.5-5.1); Sodium 140 mmol/L (136-145)
[2024-05-18 07:09] LABS: Alanine Aminotransferase 16 U/L (12-78); Albumin/Globulin Ratio 1.3 (1.1-1.8); Alkaline Phosphatase 89 U/L (38-126); Anion Gap 6.1 mEq/L (5-15); Aspartate Amino Transferase 36 U/L (14-36); Bilirubin,Total 1.1 mg/dl (0.2-1.3); Blood Urea Nitrogen 28 mg/dl (7-17); Calcium 7.5 mg/dl (8.4-10.2); Carbon Dioxide 32 mmol/L (22.0-30.0); Creatinine Clearance Estimated 47 mL/min (50-200); Estimated Glomerular Filt Rate 31 ml/min (>60); GFR (African American) 38 ML/MIN (>60); Globulin 2.3 g/dL (1.3-3.2); Glucose 91 mg/dl (74-100); Total Protein,Serum 5.3 g/dl (6.3-8.2)
--- NOTE | 2024-05-18 07:43 | EXP.ACUTE.PN ---
Subjective *Date: 05/18/24 *Time: 16:10 Interval history: Patient will evaluate morning. Still having pain but no nausea or vomiting. No bowel movement yet. NG remains in place. Stable on room air. remained at bedside overnight, planning to take respite today. Medical Exam Vital signs and Labs for Last 24 Hours: Vital Signs Temp Pulse Pulse Resp BP Pulse Ox O2 Del Method 05/18/24 06:45 Nasal Cannula 05/18/24 06:11 72 05/18/24 06:11 75 05/18/24 06:11 97 Nasal Cannula 05/18/24 04:54 Nasal Cannula 05/18/24 04:00 98.5 F 71 16 149/72 H 93 L 05/18/24 02:52 Nasal Cannula 05/18/24 00:52 Nasal Cannula 05/17/24 23:55 85 05/17/24 23:55 79 05/17/24 23:00 Nasal Cannula 05/17/24 21:00 Nasal Cannula 05/17/24 20:00 90 L Nasal Cannula 05/17/24 20:00 99.3 F 83 18 92/58 L 90 L Nasal Cannula 05/17/24 18:28 83 05/17/24 18:28 82 05/17/24 18:28 92 L Nasal Cannula 05/17/24 18:14 Nasal Cannula 05/17/24 17:00 Nasal Cannula 05/17/24 15:59 100.0 F H 73 17 117/46 L 100 Room Air 05/17/24 15:00 Nasal Cannula 05/17/24 13:00 Nasal Cannula 05/17/24 11:35 82 05/17/24 11:35 78 05/17/24 11:35 98 Nasal Cannula 05/17/24 11:00 Nasal Cannula 05/17/24 09:00 Nasal Cannula 05/17/24 08:00 Nasal Cannula O2 Flow Rate 05/18/24 06:45 2 05/18/24 06:11 05/18/24 06:11 05/18/24 06:11 2 05/18/24 04:54 2 05/18/24 04:00 05/18/24 02:52 2 05/18/24 00:52 2 05/17/24 23:55 05/17/24 23:55 05/17/24 23:00 2 05/17/24 21:00 2 05/17/24 20:00 3 05/17/24 20:00 3 05/17/24 18:28 05/17/24 18:28 05/17/24 18:28 2 05/17/24 18:14 2 05/17/24 17:00 2 05/17/24 15:59 05/17/24 15:00 2 05/17/24 13:00 2 05/17/24 11:35 05/17/24 11:35 05/17/24 11:35 2 05/17/24 11:00 2 05/17/24 09:00 2 05/17/24 08:00 2 Intake and Output 05/17/24 05/17/24 05/18/24 15:59 23:59 07:59 Intake Total 420 / 1196 1240 / 1240 Output Total 0 / 1000 250 / 1000 1350 / 1350 Balance 420 / 196 -250 / 196 -110 / -110 Intake: Intake, Oral Amount 420 / 740 240 / 240 Intake, Total IV Amount 1000 / 1000 Lactated Ringers 1000ML 1,000 1000 / 1000 ml @ 150 mls/hr IV .[id number] [facility] Rx#:[id number] Output: Output, Urine Amount 0 / 750 0 / 750 550 / 550 Output, Urine Amount (Catheter) 250 / 250 250 / 250 Huynh 250 / 250 250 / 250 Output, Gastric Drainage Amount 550 / 550 Right Nare 550 / 550 Other: Number of Unmeasured Voids 0 0 0 Weight 98 kg 100.289 kg Patient Weight 05/18/24 23:59 Weight 100.289 kg Laboratory Results - last 24 hr 05/15/24 08:22: Urine Color Yellow, Urine Appearance Sl cloudy, Urine pH 6.0, Ur Specific [place] >= 1.030, Urine Protein 1+, Urine Glucose (UA) Trace, Urine Ketones Trace, Urine Blood 1+, Urine Nitrate Negative, Urine Bilirubin 1+ A, Urine Urobilinogen 0.2, Ur Leukocyte Esterase 1+ A, Urine RBC 3-5, Urine WBC 3-5, Ur Squamous Epith Cells Occasional, Urine Bacteria Trace, Urine Yeast 1+ 05/17/24 08:30: WBC 4.8, RBC 2.74 L, Hgb 7.8 L, Hct 26.7 L, MCV 97.6, MCH 28.6, MCHC 29.4 L, RDW 20.5 H, Plt Count 146, MPV 9.4, Neut % (Auto) 77.8, Lymph % (Auto) 13.8, [place] % (Auto) 7.0, Eos % (Auto) 1.2, Baso % (Auto) 0.2, Neut # (Auto) 3.7, Lymph # (Auto) 0.7, [place] # (Auto) 0.3, Eos # (Auto) 0.1, Baso # (Auto) 0.0, Sodium 141, Potassium 2.6 L* D, Chloride 104, Carbon Dioxide 33 H, Anion Gap 6.6, BUN 26 H, Creatinine 1.40 H, Estimated Creat Clear 53, Estimated GFR 36 L, Est GFR ( Amer) 44 L, Glucose 88, Calcium 7.7 L, Magnesium 2.0, Total Bilirubin 1.1, AST 34 D, ALT 18, Alkaline Phosphatase 89, Total Protein 5.5 L, Albumin 3.1 L, Globulin 2.4, Albumin/Globulin Ratio 1.3 05/17/24 12:26: POC Glucose 120 H 05/17/24 16:01: POC Glucose 106 05/17/24 20:15: POC Glucose 97 05/18/24 05:08: POC Glucose 121 H 05/18/24 06:23: WBC 3.9 L, RBC 2.70 L, Hgb 7.7 L, Hct 26.9 L, MCV 99.6 H, MCH 28.6, MCHC 28.8 L, RDW 20.9 H, Plt Count 133 L, MPV 8.9, Neut % (Auto) 70.1, Lymph % (Auto) 19.6, [place] % (Auto) 7.2, Eos % (Auto) 2.8, Baso % (Auto) 0.3, Neut # (Auto) 2.7, Lymph # (Auto) 0.8, [place] # (Auto) 0.3, Eos # (Auto) 0.1, Baso # (Auto) 0.0, Sodium 140, Potassium 3.1 L, Chloride 105, Carbon Dioxide 32 H, Anion Gap 6.1, BUN 28 H, Creatinine 1.60 H, Estimated Creat Clear 47, Estimated GFR 31 L, Est GFR ( Amer) 38 L, Glucose 91, Calcium 7.5 L, Magnesium 2.0, Total Bilirubin 1.1, AST 36, ALT 16, Alkaline Phosphatase 89, Total Protein 5.3 L, Albumin 3.0 L, Globulin 2.3, Albumin/Globulin Ratio 1.3 I & O for Labs for Last 24 Hours: Intake & Output 05/15/24 05/16/24 05/17/24 05/18/24 23:59 23:59 23:59 23:59 Intake Total 120 / 320 620 / 1196 1240 / 1240 Output Total 750 / 750 1000 / 1000 1350 / 1350 Balance -630 / -430 -380 / 196 -110 / -110 Weight 98.911 kg 98.911 kg 98 kg 100.289 kg Microbiology Reports for the Last 24 Hours: Microbiology 05/15/24 08:22 Urine,Clean Catch Urine Culture - Preliminary Gram Negative Rods Constitutional: Present mild distress, obese, chronically ill appearing and cooperative Head: Present normocephalic ENT: Present normal exam Neck: Present normal inspection Respiratory: Present prolonged expiratory phase and diminished air movement; Absent respiratory distress, wheezes or crackles Cardiac: Present Reg Rate and Rhythm, S1/S2 and No Murmur GI: Present soft, distention, tenderness (Diffuse, nonfocal) and hypoactive bowel sounds (Increased movement of gas today however.) Extremities: Present normal capillary refill and edema (trace) Comment:: trace Skin: Present intact, dry and rash Comment:: Erythematous rash in skin folds under breasts and fold of abdomen consistent with yeast/intertrigo Neuro: Present alert, awake and moves all extremities Comment:: decreased sensation in feet; oriented to self and place. Improving mentation. Assessment and Plan *Assessment and plan (1) Ileus: Status: Acute Category: Medical Code(s): K56.7 - Ileus, unspecified (2) Abdominal pain: Status: Acute Qualifiers: Abdominal location: generalized Qualified Code(s): R10.84 - Generalized abdominal pain Category: Medical Code(s): R10.9 - Unspecified abdominal pain (3) Nausea & vomiting: Status: Acute Qualifiers: Vomiting type: unspecified Qualified Code(s): R11.2 - Nausea with vomiting, unspecified Category: Medical Code(s): R11.2 - Nausea with vomiting, unspecified (4) Elevated troponin: Status: Acute Category: Medical Code(s): R79.89 - Other specified abnormal findings of blood chemistry (5) Candidal intertrigo: Status: Acute Category: Medical Code(s): B37.2 - Candidiasis of skin and nail (6) Diabetes: Status: Chronic Qualifiers: Diabetes mellitus type: type 2 Diabetes mellitus senior living insulin use: with supervisor intermediates use Diabetes mellitus complication status: with other specified complication Qualified Code(s): E11.69 - Type 2 diabetes mellitus with other specified complication; Z79.4 - terminal computer operator (current) use of insulin Category: Medical Code(s): E11.9 - Type 2 diabetes mellitus without complications (7) Hypertension: Status: Acute Qualifiers: Hypertension type: primary hypertension Qualified Code(s): I10 - Essential (primary) hypertension Category: Medical Code(s): I10 - Essential (primary) hypertension (8) Hospice care patient: Status: Acute Category: Medical Code(s): Z51.5 - Encounter for palliative care (9) Polypharmacy: Status: Chronic Category: Medical Code(s): Z79.899 - Other supervisor intermediates (current) drug therapy (10) Chronic narcotic use: Status: Chronic Category: Social Hx Code(s): F11.90 - Opioid use, unspecified, uncomplicated (11) Lumbosacral radiculopathy due to degenerative joint disease of spine: Status: Chronic Category: Medical Code(s): M47.27 - Other spondylosis with radiculopathy, lumbosacral region (12) Chronic hypoxemic respiratory failure: Status: Chronic Category: Medical Code(s): J96.11 - Chronic respiratory failure with hypoxia (13) CKD (chronic kidney disease) stage 3, GFR 30-59 ml/min: Status: Acute Qualifiers: Chronic kidney disease stage 3 subtype: stage 3a (GFR 45-59) Qualified Code(s): N18.31 - Chronic kidney disease, stage 3a Category: Medical Code(s): N18.30 - Chronic kidney disease, stage 3 unspecified Plan 78-year-old female with multiple comorbidities who presented with nausea and vomiting and abdominal pain to the ER. Workup with fairly unremarkable labs however unable to obtain control of patient's nausea and vomiting. Medicine consulted for admission. Discussed case with ER, request admission for further medical management, fluids, serial labs. I agreed to admit. Patient having active nausea upon arrival to the floor. Denies any marla chest pain. Patient is a hospice patient and has been with hospice for at least a month and a half. Recently stopped Xanax, concerned she may be having withdrawal symptoms. Other concerns that she has medication induced ileus or progression of her abdominal pathology. Persistent nausea. Placing NG today. Continues to require inpatient management. Problems addressed as follows: Ileus Abdominal pain Intractable nausea and vomiting -Recent abrupt cessation of Xanax along with significant dosing of guaifenesin. Concern for withdrawal from Xanax versus medication side effect. Additional concern for medication induced ileus given her high-dose opiate therapy with her fentanyl patches and opiates orally for pain. -Continue Ativan 0.5 mg PO as needed every 8 hours. -Continue Zofran 4 mg every 6 hours as needed IV; Phenergan 25 mg as needed every 6 hours for nausea -Repeat KUB ordered this morning, per my review has worsening ileus with gaseous distention of bowels. NG placed. Continue low wall suction -Holding Lasix and spironolactone. Consider resumption daily for ascites management -BUN 28, creatinine at baseline 1.6. Potassium low at 3.1, replacing with D5LR today. Magnesium normal at 2.0. Repeat CBC, CMP, magnesium ordered for the morning. long-term indwelling catheter, recurrent UTIs -Urine negative for nitrate, 1+ leuk esterase, 1+ yeast. 3-5 white cells. In the setting of long-term indwelling catheter, will hold on further treatment. Urine culture pending. White count normal at 4.8. -Urine culture positive for stenotrophomonas. Initiate Levaquin 750 mg every 48 hours. Given indwelling catheter, will treat for 7 days. Anemia: Worsening with hemoglobin 7.7. Transfusion threshold with hemoglobin less than 7. Repeat CBC, CMP, magnesium ordered for Polypharmacy Chronic benzodiazepine and opiate use. - Continue oxycodone 10 mg every 6 hours. Continue gabapentin 600 mg every 6 hours. - Concern for component of withdrawal from benzodiazepine given abrupt cessation last Tuesday prior to onset of symptoms. Resume low-dose lorazepam. Will prevocational/rehabilitation counselor on taper at discharge pending goals of care unless plan is to resume given her hospice status. Diabetes: Continue to glargine at reduced dose of 25 units nightly. Sliding scale insulin with fingersticks ACHS Extensive discussion with family today about goals of care. Treating patient as though she is on respite care at this time. Encouraged to take a break and go home and rest and take care of himself. Concern for caregiver exhaustion. He was admitted to the hospital a week ago due to lack of self-care. instructed to go home during the day from 11 AM to 7 PM for rest and a nap so he can spend the night with her in the hospital. Will transition respite care time 2 nights starting on Tuesday night. DNR/DNI Holding Eliquis with worsening anemia. N.p.o., IV fluids today with 1 L D5LR
[2024-05-18 08:00] VITALS: BP 138/70; PULSE 82; RESP 21; TEMP 36.7; O2SAT 94
[2024-05-18] MEDS: HYDROXYCHLOROQUINE SULFATE 200MG TABLET 200 MG PO ×2 (08:46→21:05)
[2024-05-18] MEDS: BISOPROLOL 5MG TABLET 10 MG PO (08:46)
[2024-05-18] MEDS: FAMOTIDINE 20MG TABLET 20 MG PO ×2 (08:47→21:05)
[2024-05-18] MEDS: EMPAGLIFLOZIN 10MG TABLET 10 MG PO (08:47)
[2024-05-18] MEDS: CITALOPRAM 20MG TABLET 20 MG PO (08:48)
[2024-05-18] MEDS: SODIUM CHLORIDE 0.9% 10ML VIAL 10 ML IV (08:48)
[2024-05-18] MEDS: PANTOPRAZOLE 40MG VIAL 40 MG IV ×2 (08:48→20:58)
[2024-05-18] MEDS: NYSTATIN CREAM 30GM/TUBE TP ×4 (09:05→21:05)
[2024-05-18] MEDS: ONDANSETRON 4MG ODT 4 MG SL ×2 (09:17→16:01)
[2024-05-18] MEDS: LEVOFLOXACIN/D5W 750 MG/150 ML 750 MG/150 ML PIGGYBACK 100 MG IV (10:10)
[2024-05-18] MEDS: SODIUM CHLORIDE 0.9% 25ML BAG 25 ML IV ×2 (11:44→18:40)
[2024-05-18] MEDS: PROMETHAZINE HCL 25MG/ML 1ML VIAL 25 MG IV ×2 (11:44→18:40)
[2024-05-18] MEDS: DEXTROSE 5%-LACTATED RINGERS 1,000 ML 100 ML IV (12:17)
[2024-05-18 12:33] VITALS: PULSE 77; PULSE 79
[2024-05-18] MEDS: ACETAMINOPHEN 500MG TAB 500 MG PO (13:53)
[2024-05-18] MEDS: BISACODYL 10MG SUPP 10 MG RC (14:29)
[2024-05-18 16:00] VITALS: BP 135/99; PULSE 80; RESP 19; TEMP 36.9; O2SAT 100
[2024-05-18 16:26] LABS: POC Glucose,Bedside 140 (70-110)
--- NOTE | 2024-05-18 16:47 | PC.NURSE ---
PT IS RESTING IN BED. ALERT AND ORIENTED X4. MEDICATED PER MAR FOR PAIN/NAUSEA/ANXIETY. NG TUBE HAS BEEN CLAMPED MULTIPLE TIMES THIS SHIFT DUE TO PO MEDICATIONS. LUNG SOUNDS DIMINISHED WITH SCATTERED WHEEZING. TENDERNESS NOTED TO ABDOMEN WITH PALPATION. HYPOACTIVE BOWEL SOUNDS. CAST NOTED TO RLE. TURNED AND REPOSITIONED IN BED FREQUENTLY. BATH AND LINEN CHANGE THIS SHIFT. WILL CONTINUE TO MONITOR.
[2024-05-18] MEDS: MELATONIN 5MG TABLET 10 MG PO (21:05)
[2024-05-18 23:06] LABS: POC Glucose,Bedside 106 (70-110)
[2024-05-18 23:06] LABS: POC Glucose,Bedside 131 (70-110)
[2024-05-19] VITALS (7 sets, daily range): BP systolic 110–139; BP diastolic 57–74; PULSE 73–97; RESP 18–20; TEMP 36.8–37.5; O2SAT 89–100; BMI 36.8
[2024-05-19] MEDS: ONDANSETRON 4MG ODT 4 MG SL ×3 (00:27→13:34)
[2024-05-19] MEDS: OXYCODONE 5MG IMMEDIATE RELEASE TABLET 10 MG PO ×4 (00:27→17:48)
[2024-05-19] MEDS: LORazepam 0.5MG TABLET 0.5 MG PO ×2 (00:36→15:36)
[2024-05-19] MEDS: GABAPENTIN 600MG TABLET 600 MG PO ×4 (00:58→17:48)
[2024-05-19] MEDS: PROMETHAZINE HCL 25MG/ML 1ML VIAL 25 MG IV ×2 (02:54→17:05)
[2024-05-19] MEDS: ACETAMINOPHEN 500MG TAB 500 MG PO ×2 (02:54→20:13)
[2024-05-19] MEDS: SODIUM CHLORIDE 0.9% 25ML BAG 25 ML IV ×2 (02:55→17:05)
[2024-05-19 05:06] LABS: POC Glucose,Bedside 148 (70-110)
[2024-05-19 05:06] LABS: POC Glucose,Bedside 104 (70-110)
--- NOTE | 2024-05-19 05:09 | PC.NURSE ---
Patient alert and oriented x4 this shift. Tolerating 2L NC well with o2 stats >90%. NG to continuous LWS, clamped several times this shift due to medication administration. Patients pain, nausea, and anxiety treated per DEC. RLE cast applied. Huynh in place and draining yellow urine. Abdomen tender with hypoactive bowel sounds. 2 bowel movements this shift. Call light within reach.
[2024-05-19 06:30] LABS: POC Glucose,Bedside 119 (70-110)
[2024-05-19 07:28] LABS: Basophils % 0.1 % (0.1-2.0); Eosinophils # 0.3 K/mm3 (0.0-0.4); Eosinophils % 4.1 % (0.1-12.0); Hematocrit 28.9 % (37.0-47.0); Hemoglobin 8.1 g/dL (12.2-16.2); Lymphocytes % 15.5 % (10-50); Mean Corpuscular Volume 99.8 fl (81-99); Mean Platelet Volume 9.4 fl (7.4-10.4); Monocytes # 0.3 K/mm3 (0.1-1.0); Monocytes % 4.8 % (1.7-9.3); Neutrophils # 4.9 K/mm3 (1.8-7.8); Neutrophils % 75.4 % (37.0-80.0); Platelet Count 143 K/mm3 (142-424); Red Cell Distribution Width 20.4 % (11.5-17.5); White Blood Count 6.5 K/mm3 (4.8-10.8)
[2024-05-19 07:43] LABS: Alanine Aminotransferase 20 U/L (12-78); Albumin/Globulin Ratio 1.2 (1.1-1.8); Alkaline Phosphatase 84 U/L (38-126); Anion Gap 6.2 mEq/L (5-15); Aspartate Amino Transferase 39 U/L (14-36); Bilirubin,Total 1.1 mg/dl (0.2-1.3); Blood Urea Nitrogen 24 mg/dl (7-17); Calcium 7.9 mg/dl (8.4-10.2); Carbon Dioxide 32 mmol/L (22.0-30.0); Chloride 105 mmol/L (98-107); Creatinine Clearance Estimated 57 mL/min (50-200); Estimated Glomerular Filt Rate 40 ml/min (>60); GFR (African American) 48 ML/MIN (>60); Globulin 2.6 g/dL (1.3-3.2); Glucose 106 mg/dl (74-100); Magnesium 1.9 mg/dl (1.6-2.3); Potassium 3.2 mmoL/L (3.5-5.1); Sodium 140 mmol/L (136-145); Total Protein,Serum 5.6 g/dl (6.3-8.2)
[2024-05-19] MEDS: KCl 10mEq/100ml 100 ML 100 MEQ IV ×3 (08:45→11:28)
[2024-05-19] MEDS: 0.9 % SODIUM CHLORIDE 1000ML 500 ML 100 ML IV (08:46)
[2024-05-19] MEDS: PANTOPRAZOLE 40MG VIAL 40 MG IV ×2 (08:47→20:12)
[2024-05-19] MEDS: CITALOPRAM 20MG TABLET 20 MG PO (08:47)
[2024-05-19] MEDS: SODIUM CHLORIDE 0.9% 10ML VIAL 10 ML IV (08:47)
[2024-05-19] MEDS: FAMOTIDINE 20MG TABLET 20 MG PO ×2 (08:47→20:12)
[2024-05-19] MEDS: BISOPROLOL 5MG TABLET 10 MG PO (08:48)
[2024-05-19] MEDS: HYDROXYCHLOROQUINE SULFATE 200MG TABLET 200 MG PO ×2 (08:48→20:12)
[2024-05-19] MEDS: EMPAGLIFLOZIN 10MG TABLET 10 MG PO (08:48)
[2024-05-19] MEDS: NYSTATIN CREAM 30GM/TUBE TP ×4 (08:49→20:12)
[2024-05-19] MEDS: FENTANYL 25 MCG TD (08:59)
[2024-05-19 11:06] LABS: POC Glucose,Bedside 102 (70-110)
--- NOTE | 2024-05-19 11:52 | XR_ITS ---
PROCEDURE INFORMATION: Exam: XR Abdomen Exam date and time: 05/19/2024 11:59 AM Age: 78 years old Clinical indication: Device placement; Gi device; Nasogastric tube; Additional info: Verify ng placement TECHNIQUE: Imaging protocol: Radiologic exam of the abdomen. Views: Frontal supine view of the abdomen. 1 View. COMPARISON: CR XR KUB 05/17/2024 1:38 PM FINDINGS: Tubes, catheters and devices: Nasogastric tube to the stomach. Pleural spaces: Small left pleural effusion. Gastrointestinal tract: Decreased gaseous distension of the stomach. Bones/joints: Surgical changes lumbar spine. IMPRESSION: Nasogastric tube to the stomach.
--- NOTE | 2024-05-19 12:55 | PC.NURSE ---
NG tube advanced to 65 at the nare and flushed with coke per Dr. Oconnell's verbal order. Pt tolerated well with no current complaints.
[2024-05-19] MEDS: LEVOFLOXACIN/D5W 750 MG/150 ML 750 MG/150 ML PIGGYBACK 100 MG IV (13:03)
--- NOTE | 2024-05-19 14:53 | P.PN_ITS ---
Subjective *Date: 05/19/24 *Time: 17:06 Interval history: Continues to have nausea. No marla emesis. Poor output from NG. Flushed NG during rounds. Significant amount of thick mucus approximately 60 cc removed from tube and stomach. Had small mucousy bowel movements, no significant BM or stool. Has not passed any gas in 3 days. Medical Exam Vital signs and Labs for Last 24 Hours: Vital Signs Temp Pulse Resp BP Pulse Ox O2 Del Method O2 Flow Rate 05/19/24 12:52 Nasal Cannula 2 05/19/24 11:00 Nasal Cannula 2 05/19/24 09:00 Nasal Cannula 2 05/19/24 07:55 Nasal Cannula 2 05/19/24 07:48 98.2 F 92 H 20 139/69 93 L Room Air 05/19/24 06:55 Nasal Cannula 2 05/19/24 05:23 99.1 F 74 18 133/71 100 Room Air 05/19/24 04:53 Nasal Cannula 2 05/19/24 02:50 Nasal Cannula 2 05/19/24 00:58 Nasal Cannula 2 05/18/24 23:00 Nasal Cannula 2 05/18/24 21:05 Nasal Cannula 2 05/18/24 21:05 Nasal Cannula 2 05/18/24 18:46 Nasal Cannula 2 05/18/24 16:55 Nasal Cannula 2 05/18/24 16:00 98.5 F 80 19 135/99 H 100 Room Air 05/18/24 14:58 Nasal Cannula 2 Intake and Output 05/18/24 05/19/24 05/19/24 23:59 07:59 15:59 Intake Total 940 / 2180 417 / 417 Output Total 500 / 500 Balance 940 / 505 -500 / -83 417 / -83 Intake: Intake, Total IV Amount 940 / 1940 Dextrose 5%-Lactated Ringers 1, 940 / 940 000 ml @ 100 mls/hr IV .Q10H [facility] Rx#:[id number] Infusion Intake 417 / 417 0.9 % Sodium Chloride 1000ML 216 / 216 500 ml @ 100 mls/hr IV .Q5H [facility] Rx#:[id number] KCl 10mEq/100ml 100 ml @ 100 201 / 201 mls/hr IV Q1H [facility] Rx#:[id number] Output: Output, Urine Amount 500 / 500 Other: Number of Voids 0 Number of Unmeasured Voids 1 Number of Bowel Movements 1 Weight 100.335 kg Patient Weight 05/19/24 23:59 Weight 100.335 kg Laboratory Results - last 24 hr 05/15/24 18:09: POC Glucose 148 H 05/16/24 16:33: POC Glucose 104 05/18/24 11:18: POC Glucose 106 05/18/24 16:06: POC Glucose 140 H 05/18/24 20:52: POC Glucose 131 H 05/19/24 06:05: WBC 6.5 D, RBC 2.90 L, Hgb 8.1 L, Hct 28.9 L, MCV 99.8 H, MCH 28.0, MCHC 28.0 L, RDW 20.4 H, Plt Count 143, MPV 9.4, Neut % (Auto) 75.4, Lymph % (Auto) 15.5, [place] % (Auto) 4.8, Eos % (Auto) 4.1, Baso % (Auto) 0.1, Neut # (Auto) 4.9, Lymph # (Auto) 1.0, [place] # (Auto) 0.3, Eos # (Auto) 0.3, Baso # (Auto) 0.0, Sodium 140, Potassium 3.2 L, Chloride 105, Carbon Dioxide 32 H, Anion Gap 6.2, BUN 24 H, Creatinine 1.30 H, Estimated Creat Clear 57, Estimated GFR 40 L, Est GFR ( Amer) 48 L D, Glucose 106 H, Calcium 7.9 L, Magnesium 1.9, Total Bilirubin 1.1, AST 39 H, ALT 20, Alkaline Phosphatase 84, Total Protein 5.6 L, Albumin 3.0 L, Globulin 2.6, Albumin/Globulin Ratio 1.2 05/19/24 06:10: POC Glucose 119 H 05/19/24 10:56: POC Glucose 102 I & O for Labs for Last 24 Hours: Intake & Output 05/16/24 05/17/24 05/18/24 05/19/24 23:59 23:59 23:59 23:59 Intake Total 120 / 320 620 / 1196 2180 / 2180 417 / 417 Output Total 750 / 750 1000 / 1000 1675 / 1675 500 / 500 Balance -630 / -430 -380 / 196 505 / 505 -83 / -83 Weight 98.911 kg 98 kg 100.289 kg 100.335 kg Constitutional: Present mild distress, obese, chronically ill appearing and cooperative Head: Present normocephalic ENT: Present normal exam Comment:: NG in right nare Neck: Present normal inspection Respiratory: Present prolonged expiratory phase and diminished air movement; Absent respiratory distress, wheezes or crackles Cardiac: Present Reg Rate and Rhythm, S1/S2 and No Murmur GI: Present soft, distention, tenderness (Diffuse, nonfocal) and hypoactive bowel sounds (decreased movement of gas today) Extremities: Present normal capillary refill and edema (trace) Comment:: trace Skin: Present intact, dry and rash Comment:: Erythematous rash in skin folds under breasts and fold of abdomen consistent wit h yeast/intertrigo Neuro: Present alert, awake and moves all extremities Comment:: decreased sensation in feet; oriented to self and place. Improving mentation. Assessment and Plan *Assessment and plan (1) Ileus: Status: Acute Category: Medical Code(s): K56.7 - Ileus, unspecified (2) Abdominal pain: Status: Acute Qualifiers: Abdominal location: generalized Qualified Code(s): R10.84 - Generalized abdominal pain Category: Medical Code(s): R10.9 - Unspecified abdominal pain (3) Nausea & vomiting: Status: Acute Qualifiers: Vomiting type: unspecified Qualified Code(s): R11.2 - Nausea with vomiting, unspecified Category: Medical Code(s): R11.2 - Nausea with vomiting, unspecified (4) Elevated troponin: Status: Acute Category: Medical Code(s): R79.89 - Other specified abnormal findings of blood chemistry (5) Candidal intertrigo: Status: Acute Category: Medical Code(s): B37.2 - Candidiasis of skin and nail (6) Diabetes: Status: Chronic Qualifiers: Diabetes mellitus complication status: with other specified complication Diabetes mellitus narrow fabric loom fixer insulin use: with narrow fabric loom fixer use Diabetes mellitus type: type 2 Qualified Code(s): E11.69 - Type 2 diabetes mellitus with other specified complication; Z79.4 - snf (current) use of insulin Category: Medical Code(s): E11.9 - Type 2 diabetes mellitus without complications (7) Hypertension: Status: Acute Qualifiers: Hypertension type: primary hypertension Qualified Code(s): I10 - Essential (primary) hypertension Category: Medical Code(s): I10 - Essential (primary) hypertension (8) Hospice care patient: Status: Acute Category: Medical Code(s): Z51.5 - Encounter for palliative care (9) Polypharmacy: Status: Chronic Category: Medical Code(s): Z79.899 - Other narrow fabric loom fixer (current) drug therapy (10) Chronic narcotic use: Status: Chronic Category: Social Hx Code(s): F11.90 - Opioid use, unspecified, uncomplicated (11) Lumbosacral radiculopathy due to degenerative joint disease of spine: Status: Chronic Category: Medical Code(s): M47.27 - Other spondylosis with radiculopathy, lumbosacral region (12) Chronic hypoxemic respiratory failure: Status: Chronic Category: Medical Code(s): J96.11 - Chronic respiratory failure with hypoxia (13) CKD (chronic kidney disease) stage 3, GFR 30-59 ml/min: Status: Acute Qualifiers: Chronic kidney disease stage 3 subtype: stage 3a (GFR 45-59) Qualified Code(s): N18.31 - Chronic kidney disease, stage 3a Category: Medical Code(s): N18.30 - Chronic kidney disease, stage 3 unspecified Plan 78-year-old female with multiple comorbidities who presented with nausea and vomiting and abdominal pain to the ER. Workup with fairly unremarkable labs however unable to obtain control of patient's nausea and vomiting. Medicine consulted for admission. Discussed case with ER, request admission for further medical management, fluids, serial labs. I agreed to admit. Continues to have nausea and vomiting. Continues to have ileus. No significant bowel movement or flatus in 3 days. Continue NG to low wall suction. Ileus Abdominal pain Intractable nausea and vomiting -Continues to have abdominal pain, no significant bowel movement or movement of gas and abdomen with no flatus in a couple days. Remains NPO. NG in place. Repeat KUB obtained today, per my review gaseous distention is less however paucity of gas in lower abdomen and colon -Concern for medication induced ileus. Patient continues to necessitate significant opiates which are chronic for her. Discussed alternative pain meds, contraindications to these given her previous allergies. -Continue fentanyl patch 25 mcg every 72 hours -Continue Ativan 0.5 mg PO as needed every 8 hours. -Continue Zofran 4 mg every 6 hours as needed IV; Phenergan 25 mg as needed every 6 hours for nausea IV -NG advanced 5 cm. Continue low wall suction. Clamp only during medications and for an hour after. Oral medications to be bundled every 6 hours -Holding Lasix and spironolactone. Consider resumption daily for ascites management -BUN 24, creatinine 1.3 (her baseline), potassium 3.2, administer 30 mEq IV today. Magnesium 1.9. Repeat CBC, CMP, magnesium ordered for the morning. long-term indwelling catheter, recurrent UTIs -Urine negative for nitrate, 1+ leuk esterase, 1+ yeast. 3-5 white cells. Urine culture positive for stenotrophomonas. Will treat with Levaquin 750 mg every 48 hours for 7 days. Anemia: Hemoglobin stable at 8.1. Transfusion threshold with hemoglobin less than 7. Polypharmacy Chronic benzodiazepine and opiate use. - Continue oxycodone 10 mg every 6 hours. Continue gabapentin 600 mg every 6 hours. Diabetes: Continue glargine at reduced dose of 25 units nightly. Sliding scale insulin with fingersticks ACHS. Morning glucose 106. Continue respite today for , will reevaluate respite tomorrow given patient's persistent ileus and concern for decline. DNR/DNI Holding Eliquis with worsening anemia. N.p.o.
[2024-05-19 16:26] LABS: POC Glucose,Bedside 102 (70-110)
--- NOTE | 2024-05-19 17:27 | PC.NURSE ---
Patient alert and oriented x4 for majority of this shift, with brief sporadic episodes of confusion regarding place and situation. Tolerating 2L NC well with o2 stats >90%. NG to continuous LWS, clamped several times this shift due to medication administration. 75ml of greenish-brown secretions emptied around 1600. KUB completed to check placement of tube. Per Dr. Oconnell's orders, NG advanced from 58 to 65 at the nare and flushed with 30ml of coke. pt tolerated well and output increased after these interventions. pt and family have been educated numerous times about NPO status and sips and chips administration only. Patients pain, nausea, and anxiety treated per MAR throughout entire shift. Dr. Oconnell expressed desire to group medication administrations as much as possible to decrease amount of time that NG is removed from suction. RLE cast applied. Huynh in place and draining yellow urine. Abdomen tender with hypoactive bowel sounds. One liquid stool produced this shift. Call light within reach.
[2024-05-19] MEDS: IPRATROPIUM/ALBUTEROL 3 ML NEB IH ×2 (18:07→23:03)
[2024-05-19] MEDS: MELATONIN 5MG TABLET 10 MG PO (20:12)
[2024-05-19] MEDS: SENNOSIDES 8.6MG/DOCUSATE 50MG TABLET 1 TAB PO (20:13)
[2024-05-19 21:14] LABS: POC Glucose,Bedside 89 (70-110)
--- NOTE | 2024-05-19 23:04 | XR_ITS ---
PROCEDURE INFORMATION: Exam: XR Abdomen Exam date and time: 05/19/2024 11:22 PM Age: 78 years old Clinical indication: Other: Protocal TECHNIQUE: Imaging protocol: Radiologic exam of the abdomen. Views: Frontal supine view of the abdomen. 1 View. COMPARISON: CR XR KUB 05/19/2024 11:59 AM FINDINGS: Tubes, catheters and devices: Enteral tube is in satisfactory position. Gastrointestinal tract: Nonobstructive bowel gas pattern. Intraperitoneal space: Multiple surgical clips are demonstrated in the left hemiabdomen. Bones/joints: Changes of prior lumbar fusion procedure are visualized. Subjective bony demineralization. IMPRESSION: Enteral tube is in satisfactory position.
[2024-05-20] MEDS: GABAPENTIN 600MG TABLET 600 MG PO ×5 (00:12→23:56)
[2024-05-20] MEDS: OXYCODONE 5MG IMMEDIATE RELEASE TABLET 10 MG PO ×5 (00:12→23:56)
--- NOTE | 2024-05-20 00:40 | PC.NURSE ---
Ng tube got pulled out and was replaced at 60 cm
[2024-05-20 04:00] VITALS: BMI 37.2
--- NOTE | 2024-05-20 05:54 | PC.NURSE ---
Patient has been A&OX4 most of the shift with mild episodes of confusion. She has tolerated 2L nasal cannula. No BM this shift. Patients bowel sounds hypoactive in all quadrants. Ng tube has remained to low wall suction with 200ml output this shift. Pt was treated for nausea and pain per DEC. Huynh catheter in place draining yellow urine. No complaints at this time, call light within reach.
[2024-05-20 06:00] LABS: POC Glucose,Bedside 96 (70-110)
[2024-05-20] MEDS: IPRATROPIUM/ALBUTEROL 3 ML NEB IH ×2 (06:04→11:00)
[2024-05-20 06:05] VITALS: PULSE 81; PULSE 88; O2SAT 99
[2024-05-20] MEDS: ONDANSETRON 4MG/2ML VIAL 4 MG IV ×3 (06:45→19:57)
[2024-05-20 07:23] VITALS: BP 116/61; PULSE 74; RESP 22; TEMP 36.9; O2SAT 100
--- NOTE | 2024-05-20 07:40 | EXP.ACUTE.PN ---
Subjective *Date: 05/20/24 *Time: 15:06 Interval history: Still no bowel movement on her own. Continues to have nausea. Some dry heaves overnight but no marla emesis. No fever. Stable on 3 L oxygen while she is slow, tolerates weaning to 2 L while awake. Still having persistent belly pain. Medical Exam Vital signs and Labs for Last 24 Hours: Vital Signs Temp Pulse Pulse Resp BP Pulse Ox O2 Del Method 05/20/24 07:23 98.5 F 74 22 116/61 100 Nasal Cannula 05/20/24 06:36 Nasal Cannula 05/20/24 06:05 81 05/20/24 06:05 88 05/20/24 06:05 99 Nasal Cannula 05/20/24 05:00 Nasal Cannula 05/20/24 03:00 Nasal Cannula 05/20/24 01:00 Nasal Cannula 05/19/24 23:17 73 05/19/24 23:17 73 05/19/24 23:00 Nasal Cannula 05/19/24 21:00 Nasal Cannula 05/19/24 20:00 Nasal Cannula 05/19/24 20:00 99.5 F 97 H 18 122/74 99 Room Air 05/19/24 18:43 Nasal Cannula 05/19/24 18:22 89 L Room Air 05/19/24 18:22 Nasal Cannula 05/19/24 18:22 79 05/19/24 18:21 78 05/19/24 17:00 Nasal Cannula 05/19/24 16:00 98.9 F 78 19 110/57 L 98 Nasal Cannula 05/19/24 15:00 Nasal Cannula 05/19/24 12:52 Nasal Cannula 05/19/24 11:00 Nasal Cannula 05/19/24 09:00 Nasal Cannula 05/19/24 07:55 Nasal Cannula 05/19/24 07:48 98.2 F 92 H 20 139/69 93 L Nasal Cannula O2 Flow Rate FiO2 05/20/24 07:23 3 05/20/24 06:36 2 05/20/24 06:05 05/20/24 06:05 05/20/24 06:05 2 05/20/24 05:00 2 05/20/24 03:00 2 05/20/24 01:00 2 05/19/24 23:17 05/19/24 23:17 08/17/24 23:00 2 05/19/24 21:00 2 05/19/24 20:00 2 05/19/24 20:00 05/19/24 18:43 2 05/19/24 18:22 05/19/24 18:22 2 28 05/19/24 18:22 05/19/24 18:21 05/19/24 17:00 2 05/19/24 16:00 3 05/19/24 15:00 2 05/19/24 12:52 2 05/19/24 11:00 2 05/19/24 09:00 2 05/19/24 07:55 2 05/19/24 07:48 3 Intake and Output 05/19/24 05/19/24 05/20/24 15:59 23:59 07:59 Intake Total 417 / 902 485 / 902 Output Total 575 / 1075 525 / 525 Balance 417 / -173 -90 / -173 -525 / -525 Intake: Intake, Other Amount 485 / 485 Infusion Intake 417 / 417 0.9 % Sodium Chloride 1000ML 216 / 216 500 ml @ 100 mls/hr IV .Q5H [facility] Rx#:[id number] KCl 10mEq/100ml 100 ml @ 100 201 / 201 mls/hr IV Q1H [facility] Rx#:[id number] Output: Output, Urine Amount 500 / 1000 325 / 325 Output, Gastric Drainage Amount 75 / 75 200 / 200 Right Nare 75 / 75 200 / 200 Other: Number of Voids 0 Number of Unmeasured Voids 0 Weight 101.333 kg Patient Weight 05/20/24 23:59 Weight 101.333 kg Laboratory Results - last 24 hr 05/19/24 06:05: Sodium 140, Potassium 3.2 L, Chloride 105, Carbon Dioxide 32 H, Anion Gap 6.2, BUN 24 H, Creatinine 1.30 H, Estimated Creat Clear 57, Estimated GFR 40 L, Est GFR ( Amer) 48 L D, Glucose 106 H, Calcium 7.9 L, Magnesium 1.9, Total Bilirubin 1.1, AST 39 H, ALT 20, Alkaline Phosphatase 84, Total Protein 5.6 L, Albumin 3.0 L, Globulin 2.6, Albumin/Globulin Ratio 1.2 05/19/24 10:56: POC Glucose 102 05/19/24 16:12: POC Glucose 102 05/19/24 20:01: POC Glucose 89 05/20/24 05:53: POC Glucose 96 I & O for Labs for Last 24 Hours: Intake & Output 05/17/24 05/18/24 05/19/24 05/20/24 23:59 23:59 23:59 23:59 Intake Total 620 / 1196 2180 / 2180 902 / 902 Output Total 1000 / 1000 1675 / 1675 1075 / 1075 525 / 525 Balance -380 / 196 505 / 505 -173 / -173 -525 / -525 Weight 98 kg 100.289 kg 100.335 kg 101.333 kg Constitutional: Present mild distress, obese, chronically ill appearing and cooperative Head: Present normocephalic ENT: Present normal exam Comment:: NG in right nare Neck: Present normal inspection Respiratory: Present prolonged expiratory phase and diminished air movement; Absent respiratory distress, wheezes or crackles Cardiac: Present Reg Rate and Rhythm, S1/S2 and No Murmur GI: Present soft, distention, tenderness (Diffuse, nonfocal) and hypoactive bowel sounds (Nearly absent bowel sounds) Extremities: Present normal capillary refill and edema (trace) Comment:: trace Skin: Present intact, dry and rash Comment:: Erythematous rash in skin folds under breasts and fold of abdomen consistent with yeast/intertrigo Neuro: Present alert, awake and moves all extremities Comment:: decreased sensation in feet; oriented to self and place. Improving mentation. Assessment and Plan *Assessment and plan (1) Ileus: Status: Acute Category: Medical Code(s): K56.7 - Ileus, unspecified (2) Abdominal pain: Status: Acute Qualifiers: Abdominal location: generalized Qualified Code(s): R10.84 - Generalized abdominal pain Category: Medical Code(s): R10.9 - Unspecified abdominal pain (3) Nausea & vomiting: Status: Acute Qualifiers: Vomiting type: unspecified Qualified Code(s): R11.2 - Nausea with vomiting, unspecified Category: Medical Code(s): R11.2 - Nausea with vomiting, unspecified (4) Elevated troponin: Status: Acute Category: Medical Code(s): R79.89 - Other specified abnormal findings of blood chemistry (5) Candidal intertrigo: Status: Acute Category: Medical Code(s): B37.2 - Candidiasis of skin and nail (6) Diabetes: Status: Chronic Qualifiers: Diabetes mellitus type: type 2 Diabetes mellitus correction insulin use: with correction use Diabetes mellitus complication status: with other specified complication Qualified Code(s): E11.69 - Type 2 diabetes mellitus with other specified complication; Z79.4 - penitentiary (current) use of insulin Category: Medical Code(s): E11.9 - Type 2 diabetes mellitus without complications (7) Hypertension: Status: Acute Qualifiers: Hypertension type: primary hypertension Qualified Code(s): I10 - Essential (primary) hypertension Category: Medical Code(s): I10 - Essential (primary) hypertension (8) Hospice care patient: Status: Acute Category: Medical Code(s): Z51.5 - Encounter for palliative care (9) Polypharmacy: Status: Chronic Category: Medical Code(s): Z79.899 - Other oysterman (current) drug therapy (10) Chronic narcotic use: Status: Chronic Category: Social Hx Code(s): F11.90 - Opioid use, unspecified, uncomplicated (11) Lumbosacral radiculopathy due to degenerative joint disease of spine: Status: Chronic Category: Medical Code(s): M47.27 - Other spondylosis with radiculopathy, lumbosacral region (12) Chronic hypoxemic respiratory failure: Status: Chronic Category: Medical Code(s): J96.11 - Chronic respiratory failure with hypoxia (13) CKD (chronic kidney disease) stage 3, GFR 30-59 ml/min: Status: Acute Qualifiers: Chronic kidney disease stage 3 subtype: stage 3a (GFR 45-59) Qualified Code(s): N18.31 - Chronic kidney disease, stage 3a Category: Medical Code(s): N18.30 - Chronic kidney disease, stage 3 unspecified (14) 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 Workup with fairly unremarkable labs however unable to obtain control of patient's nausea and vomiting. Medicine consulted for admission. Discussed case with ER, request admission for further medical management, fluids, serial labs. I agreed to admit. Continues to have nausea and vomiting. Continues to have ileus, concerning for narcotic bowel syndrome. No significant bowel movement or flatus in 4 days. Continue NG to low wall suction. Discussed goals of care, will trial clear liquids for tolerance today. Pharmacy has ordered methylnaltrexone, will administer in the morning. Continues to require inpatient management. Problems addressed as follows: Ileus Abdominal pain Intractable nausea and vomiting -Continues to have abdominal pain, no significant bowel movement or movement of gas and abdomen with no flatus in a couple days. trial clears. NG in place. -Concern for narcotic bowel syndrome/medication induced ileus. Patient continues to necessitate significant opiates which are chronic for her. Discussed alternative pain meds, contraindications to these given her previous allergies. Initiate metoclopramide every 6 hours 5 mg IV. Discussed methylnaltrexone with pharmacy, they are ordering for us to administer tomorrow. Will administer 6 mg due to kidney function -Continue fentanyl patch 25 mcg every 72 hours -Continue Ativan 0.5 mg PO as needed every 8 hours. -Continue Zofran 4 mg every 6 hours as needed IV -Will clamp tube pending tolerance of clear liquids. If has recurrent vomiting, resume, low wall suction. Clamp only during medications and for an hour after. Oral medications to be bundled every 6 hours -Holding Lasix and spironolactone. Consider resumption daily for ascites management -BUN 19, creatinine 1.1. Potassium 3.5, calcium 7.6. Albumin 2.9. Repeat CBC, CMP, magnesium ordered for the morning. long-term indwelling catheter, recurrent UTIs -Urine negative for nitrate, 1+ leuk esterase, 1+ yeast. 3-5 white cells. Urine culture positive for stenotrophomonas. Will treat with Levaquin 750 mg every 48 hours for 7 days. Anemia: Hemoglobin has been stable for several days, CBC holiday today. Transfusion threshold with hemoglobin less than 7. Polypharmacy Chronic benzodiazepine and opiate use. - Continue oxycodone 10 mg every 6 hours. Continue gabapentin 600 mg every 6 hours. Diabetes: Continue glargine at reduced dose of 25 units nightly. Sliding scale insulin with fingersticks ACHS. Morning glucose 106. Continue respite today for , will reevaluate respite tomorrow given patient's persistent ileus and concern for decline. DNR/DNI Holding Eliquis with worsening anemia. N.p.o.
[2024-05-20 08:10] LABS: Albumin Level 2.9 g/dl (3.5-5.0); Chloride 105 mmol/L (98-107); Sodium 138 mmol/L (136-145)
[2024-05-20 08:11] LABS: Potassium 3.5 mmoL/L (3.5-5.1)
[2024-05-20 08:13] LABS: Alanine Aminotransferase 14 U/L (12-78); Albumin/Globulin Ratio 1.2 (1.1-1.8); Alkaline Phosphatase 80 U/L (38-126); Anion Gap 7.5 mEq/L (5-15); Aspartate Amino Transferase 34 U/L (14-36); Bilirubin,Total 1.1 mg/dl (0.2-1.3); Blood Urea Nitrogen 19 mg/dl (7-17); Carbon Dioxide 29 mmol/L (22.0-30.0); Creatinine Clearance Estimated 69 mL/min (50-200); Estimated Glomerular Filt Rate 48 ml/min (>60); GFR (African American) 58 ML/MIN (>60); Globulin 2.5 g/dL (1.3-3.2); Total Protein,Serum 5.4 g/dl (6.3-8.2)
[2024-05-20 08:14] LABS: Calcium 7.6 mg/dl (8.4-10.2); Glucose 81 mg/dl (74-100)
[2024-05-20] MEDS: BISOPROLOL 5MG TABLET 10 MG PO (09:10)
[2024-05-20] MEDS: NYSTATIN CREAM 30GM/TUBE TP ×3 (09:11→21:05)
[2024-05-20] MEDS: EMPAGLIFLOZIN 10MG TABLET 10 MG PO (09:11)
[2024-05-20] MEDS: HYDROXYCHLOROQUINE SULFATE 200MG TABLET 200 MG PO ×2 (09:11→21:04)
[2024-05-20] MEDS: FAMOTIDINE 20MG TABLET 20 MG PO ×2 (09:11→21:04)
[2024-05-20] MEDS: CITALOPRAM 20MG TABLET 20 MG PO (09:11)
[2024-05-20] MEDS: SENNOSIDES 8.6MG/DOCUSATE 50MG TABLET 1 TAB PO ×2 (09:12→21:06)
[2024-05-20] MEDS: PANTOPRAZOLE 40MG VIAL 40 MG IV ×2 (09:12→21:06)
[2024-05-20] MEDS: BISACODYL 10MG SUPP 10 MG RC (09:12)
[2024-05-20] MEDS: LORazepam 0.5MG TABLET 0.5 MG PO (10:04)
[2024-05-20 11:00] VITALS: PULSE 76; PULSE 80; O2SAT 99
[2024-05-20 11:08] LABS: POC Glucose,Bedside 94 (70-110)
[2024-05-20] MEDS: LEVOFLOXACIN/D5W 750 MG/150 ML 750 MG/150 ML PIGGYBACK 100 MG IV (11:26)
[2024-05-20] MEDS: METOCLOPRAMIDE HCL 10MG/2ML VIAL 5 MG IVP ×2 (14:31→21:05)
[2024-05-20 15:53] LABS: POC Glucose,Bedside 134 (70-110)
[2024-05-20 16:00] VITALS: BP 124/64; PULSE 85; RESP 21; TEMP 36.6; O2SAT 98
[2024-05-20] MEDS: SODIUM PHOS/BIPHOSPHATE FLEET 133ML ENEMA 133 ML RC (17:49)
--- NOTE | 2024-05-20 18:29 | PC.NURSE ---
Pt A&Ox3 most of shift but has repetitive questions about her care today but has been educated each time. Pt and family has been present most of shift and very involved in the pts care. Pt is on a full liquid diet and although has c/o nausea and dry heaving after drinking still continues to ask for drinks and meal trays. no vomiting noted. Pt has also c/o pain multiple times this shift and has been medicated per DEC. Pt NG has not been hooked to suction this shift and is there in case pt starts vomiting and not tolerating diet. Pt received a suppository and enema this shift with no results of having a bowel movement at this time. Pt resting in bed with family at bedside.
[2024-05-20 20:00] VITALS: BP 110/75; PULSE 73; RESP 16; TEMP 37.3; O2SAT 97
[2024-05-20 20:10] LABS: POC Glucose,Bedside 116 (70-110)
[2024-05-20] MEDS: INSULIN GLARGINE 100 UNITS/ML 10ML VIAL 25 UNIT SQ (21:04)
[2024-05-20] MEDS: MELATONIN 5MG TABLET 10 MG PO (21:05)
[2024-05-20] MEDS: SODIUM CHLORIDE 0.9% 10ML VIAL 10 ML IV (21:06)
[2024-05-21] MEDS: METOCLOPRAMIDE HCL 10MG/2ML VIAL 5 MG IVP ×4 (02:25→20:21)
[2024-05-21 04:00] VITALS: BP 107/66; PULSE 70; RESP 16; TEMP 36.9; O2SAT 100; BMI 37.5
[2024-05-21] MEDS: OXYCODONE 5MG IMMEDIATE RELEASE TABLET 10 MG PO ×4 (05:50→23:21)
[2024-05-21] MEDS: GABAPENTIN 600MG TABLET 600 MG PO ×3 (05:55→23:22)
--- NOTE | 2024-05-21 06:00 | PC.NURSE ---
Patient is alert and oriented x4. Patient has rested for the majority of the shift. Patient has had a plethora of family members earlier this shift. Her remained at bedside during the night. Patient has had complaints of consecutive abdominal, leg, and generalized pain this shift. She has been given scheduled Oxycodone 10mg PO. Earlier this shift, patient started to feel nauseous; she was given Zofran, but it did not seem to help. Patient attempted to sip on her soup and was able to keep it down. Patient denied Tylenol this shift, voicing concerns for throwing it back up. Patient reported that she just does not feel good. Her lung sounds were clear but diminished. and her bowel sounds were hypoactive upon auscultation. She was able to have a few watery brown stools this shift via bedpan. Patient's Huynh is intact; her urine was observed to be willard and cloudy. I myself emptied 625 mL of urine from the Huynh bag this shift. Her NG tube to the right nare remains intact and unhooked from suction. She received her scheduled medications per MAR this shift. Nystatin cream was applied to abdominal folds; redness was noted on her bottom. Her FSBS at 21:00 was 116 and her FSBS at 06:00 was 97; she did not receive any Lispro insulin coverage due to these readings. Patient does not have any further complaints at this time. She is currently resting in bed. Call light within reach.
--- NOTE | 2024-05-21 06:21 | PC.NURSE ---
Respiratory therapist approached me and reported that the patient refused her breathing treatment for this morning. Patient wanted to take her breathing treatment this afternoon.
[2024-05-21 07:10] LABS: Basophils % 0.2 % (0.1-2.0); Eosinophils # 0.2 K/mm3 (0.0-0.4); Eosinophils % 3.9 % (0.1-12.0); Hemoglobin 7.8 g/dL (12.2-16.2); Lymphocytes # 0.8 K/mm3 (0.7-4.5); Lymphocytes % 15.1 % (10-50); Mean Corpuscular HGB Conc 27.9 g/dL (31.8-35.4); Mean Corpuscular Hemoglobin 27.8 pg (27.0-31.2); Mean Corpuscular Volume 99.5 fl (81-99); Mean Platelet Volume 9.5 fl (7.4-10.4); Monocytes # 0.3 K/mm3 (0.1-1.0); Monocytes % 4.9 % (1.7-9.3); Neutrophils # 4.2 K/mm3 (1.8-7.8); Neutrophils % 75.8 % (37.0-80.0); Platelet Count 121 K/mm3 (142-424); Red Blood Count 2.82 M/mm3 (4.20-5.40); Red Cell Distribution Width 20.3 % (11.5-17.5); White Blood Count 5.5 K/mm3 (4.8-10.8)
[2024-05-21 07:14] LABS: Chloride 106 mmol/L (98-107); Potassium 3.5 mmoL/L (3.5-5.1); Sodium 139 mmol/L (136-145)
[2024-05-21 07:17] LABS: Alanine Aminotransferase 14 U/L (12-78); Albumin/Globulin Ratio 1.3 (1.1-1.8); Alkaline Phosphatase 81 U/L (38-126); Anion Gap 6.5 mEq/L (5-15); Aspartate Amino Transferase 33 U/L (14-36); Carbon Dioxide 30 mmol/L (22.0-30.0); Globulin 2.4 g/dL (1.3-3.2); Total Protein,Serum 5.4 g/dl (6.3-8.2)
[2024-05-21 07:18] LABS: Calcium 7.6 mg/dl (8.4-10.2); Glucose 84 mg/dl (74-100)
[2024-05-21 07:22] LABS: Blood Urea Nitrogen 16 mg/dl (7-17); Creatinine Clearance Estimated 69 mL/min (50-200); Estimated Glomerular Filt Rate 48 ml/min (>60); GFR (African American) 58 ML/MIN (>60)
[2024-05-21 08:00] VITALS: BP 115/72; PULSE 77; RESP 22; TEMP 36.6; O2SAT 94
[2024-05-21] MEDS: FAMOTIDINE 20MG TABLET 20 MG PO ×2 (08:36→20:22)
[2024-05-21] MEDS: EMPAGLIFLOZIN 10MG TABLET 10 MG PO (08:36)
[2024-05-21] MEDS: CITALOPRAM 20MG TABLET 20 MG PO (08:36)
[2024-05-21] MEDS: HYDROXYCHLOROQUINE SULFATE 200MG TABLET 200 MG PO ×2 (08:36→20:22)
[2024-05-21] MEDS: PANTOPRAZOLE 40MG VIAL 40 MG IV ×2 (08:37→20:20)
[2024-05-21] MEDS: BISOPROLOL 5MG TABLET 10 MG PO (08:37)
[2024-05-21] MEDS: RELISTOR 12 MG/0.6 ML SQ (10:41)
[2024-05-21] MEDS: LEVOFLOXACIN/D5W 750 MG/150 ML 750 MG/150 ML PIGGYBACK 100 MG IV (11:43)
[2024-05-21 11:48] LABS: POC Glucose,Bedside 105 (70-110)
[2024-05-21] MEDS: ONDANSETRON 4MG/2ML VIAL 4 MG IV (13:19)
[2024-05-21] MEDS: NYSTATIN CREAM 30GM/TUBE TP ×3 (13:20→20:24)
[2024-05-21] MEDS: IPRATROPIUM/ALBUTEROL 3 ML NEB IH ×2 (14:23→23:02)
[2024-05-21 14:24] VITALS: PULSE 77; PULSE 80
[2024-05-21] MEDS: LORazepam 0.5MG TABLET 0.5 MG PO (15:00)
[2024-05-21] MEDS: ACETAMINOPHEN 500MG TAB 500 MG PO (15:49)
[2024-05-21 16:00] VITALS: BP 136/60; PULSE 77; RESP 18; TEMP 37.4; O2SAT 99
--- NOTE | 2024-05-21 18:07 | PC.NURSE ---
REQUIRING 3LNC FOR O2 SUPPORT. LARGE BM TODAY FOLLOWING METHYNALTREXONE ADMIN. MEDICATED FOR PAIN PER MAR. FAMILY AT BEDSIDE FOR MOST OF THE SHIFT.
--- NOTE | 2024-05-21 18:11 | P.PN_ITS ---
Subjective *Date: 05/21/24 *Time: 18:11 Interval history: Had some nausea but no emesis overnight. Remained stable on 2 to 3 L oxygen. No bowel movement. Plan to administer methylnaltrexone this morning after it arrives. Afebrile. Family at bedside on rounds. Medical Exam Vital signs and Labs for Last 24 Hours: Vital Signs Temp Pulse Pulse Resp BP Pulse Ox O2 Del Method 05/21/24 18:05 Nasal Cannula 05/21/24 17:00 Nasal Cannula 05/21/24 16:00 99.3 F 77 18 136/60 99 Nasal Cannula 05/21/24 14:47 Nasal Cannula 05/21/24 14:24 80 05/21/24 14:24 77 05/21/24 13:00 Nasal Cannula 05/21/24 11:00 Nasal Cannula 05/21/24 09:00 Nasal Cannula 05/21/24 08:00 Nasal Cannula 05/21/24 08:00 97.8 F 77 22 115/72 94 L Nasal Cannula 05/21/24 06:48 Room Air 05/21/24 05:00 Room Air 05/21/24 04:00 98.4 F 70 16 107/66 L 100 Nasal Cannula 05/21/24 03:00 Room Air 05/21/24 01:00 Room Air 05/20/24 23:00 Room Air 05/20/24 21:00 Room Air 05/20/24 20:00 73 16 97 Room Air 05/20/24 20:00 99.1 F 73 16 110/75 97 Nasal Cannula 05/20/24 19:00 Nasal Cannula 05/20/24 18:46 Nasal Cannula O2 Flow Rate FiO2 05/21/24 18:05 3 05/21/24 17:00 3 05/21/24 16:00 3 05/21/24 14:47 3 05/21/24 14:24 05/21/24 14:24 05/21/24 13:00 3 05/21/24 11:00 3 05/21/24 09:00 3 05/21/24 08:00 2 05/21/24 08:00 2.5 05/21/24 06:48 05/21/24 05:00 05/21/24 04:00 2 05/21/24 03:00 05/21/24 01:00 05/20/24 23:00 05/20/24 21:00 05/20/24 20:00 05/20/24 20:00 3 05/20/24 19:00 2 05/20/24 18:46 2 28 Intake and Output 05/21/24 05/21/24 05/21/24 07:59 15:59 23:59 Intake Total 132 / 827 695 / 827 Output Total 625 / 625 Balance - Intake: Intake, Oral Amount 132 / 827 695 / 827 Output: Output, Urine Amount (Catheter) 625 / 625 Huynh 625 / 625 Other: Number of Bowel Movements 1 Weight 102.058 kg Patient Weight 05/21/24 23:59 Weight 102.058 kg Laboratory Results - last 24 hr 05/20/24 19:55: POC Glucose 116 H 05/21/24 06:06: WBC 5.5, RBC 2.82 L, Hgb 7.8 L, Hct 28.0 L, MCV 99.5 H, MCH 27.8, MCHC 27.9 L, RDW 20.3 H, Plt Count 121 L, MPV 9.5, Neut % (Auto) 75.8, Lymph % (Auto) 15.1, [place] % (Auto) 4.9, Eos % (Auto) 3.9, Baso % (Auto) 0.2, Neut # (Auto) 4.2, Lymph # (Auto) 0.8, [place] # (Auto) 0.3, Eos # (Auto) 0.2, Baso # (Auto) 0.0, Sodium 139, Potassium 3.5, Chloride 106, Carbon Dioxide 30, Anion Gap 6.5, BUN 16, Creatinine 1.10 H, Estimated Creat Clear 69, Estimated GFR 48 L , Est GFR ( Amer) 58 L, Glucose 84, Calcium 7.6 L, Magnesium 2.0, Total Bilirubin 1.0, AST 33, ALT 14, Alkaline Phosphatase 81, Total Protein 5.4 L, Albumin 3.0 L, Globulin 2.4, Albumin/Globulin Ratio 1.3 05/21/24 11:40: POC Glucose 105 I & O for Labs for Last 24 Hours: Intake & Output 05/18/24 05/19/24 05/20/24 05/21/24 23:59 23:59 23:59 23:59 Intake Total 2180 / 2180 902 / 902 270 / 402 827 / 827 Output Total 1675 / 1675 1075 / 1075 1325 / 1950 625 / 625 Balance 505 / 505 -173 / -173 -1055 / -1548 202 / 202 Weight 100.289 kg 100.335 kg 101.333 kg 102.058 kg Constitutional: Present mild distress, obese, chronically ill appearing and cooperative Head: Present normocephalic ENT: Present normal exam Comment:: NG in right nare Neck: Present normal inspection Respiratory: Present prolonged expiratory phase and diminished air movement; Absent respiratory distress, wheezes or crackles Cardiac: Present Reg Rate and Rhythm, S1/S2 and No Murmur GI: Present soft, distention, tenderness (Diffuse, nonfocal, slight improvement) and hypoactive bowel sounds Extremities: Present normal capillary refill and edema (trace) Skin: Present intact, dry and rash Comment:: Erythematous rash in skin folds under breasts and fold of abdomen consistent with yeast/intertrigo Neuro: Present alert, awake and moves all extremities Comment:: decreased sensation in feet; oriented to self and place. Improving mentation. 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: Status: Acute Category: Medical Code(s): K63.89 - Other specified diseases of intestine; T40.605A - Adverse effect of unspecified narcotics, initial encounter (3) Abdominal pain: Status: Acute Qualifiers: Abdominal location: generalized Qualified Code(s): R10.84 - Generalized abdominal pain Category: Medical Code(s): R10.9 - Unspecified abdominal pain (4) Nausea & vomiting: Status: Acute Qualifiers: Vomiting type: unspecified Qualified Code(s): R11.2 - Nausea with vomiting, unspecified Category: Medical Code(s): R11.2 - Nausea with vomiting, unspecified (5) Elevated troponin: Status: Acute Category: Medical Code(s): R79.89 - Other specified abnormal findings of blood chemistry (6) Candidal intertrigo: Status: Acute Category: Medical Code(s): B37.2 - Candidiasis of skin and nail (7) Diabetes: Status: Chronic Qualifiers: Diabetes mellitus type: type 2 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 truck 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 insulin use: with intermodal truck driver use Diabetes mellitus complication status: with other specified complication Qualified Code(s): E11.69 - Type 2 diabetes mellitus with other specified complication; Z79.4 - group home (current) use of insulin Category: Medical Code(s): E11.9 - Type 2 diabetes mellitus without complications (8) Hypertension: Status: Acute Qualifiers: Hypertension type: primary hypertension Qualified Code(s): I10 - Essential (primary) hypertension Category: Medical Code(s): I10 - Essential (primary) hypertension (9) Hospice care patient: Status: Acute Category: Medical Code(s): Z51.5 - Encounter for palliative care (10) Polypharmacy: Status: Chronic Category: Medical Code(s): Z79.899 - Other intermodal truck driver (current) drug therapy (11) Chronic narcotic use: Status: Chronic Category: Social Hx Code(s): F11.90 - Opioid use, unspecified, uncomplicated (12) Lumbosacral radiculopathy due to degenerative joint disease of spine: Status: Chronic Category: Medical Code(s): M47.27 - Other spondylosis with radiculopathy, lumbosacral region (13) Chronic hypoxemic respiratory failure: Status: Chronic Category: Medical Code(s): J96.11 - Chronic respiratory failure with hypoxia (14) CKD (chronic kidney disease) stage 3, GFR 30-59 ml/min: Status: Acute Qualifiers: Chronic kidney disease stage 3 subtype: stage 3a (GFR 45-59) Qualified Code(s): N18.31 - Chronic kidney disease, stage 3a Category: Medical Code(s): N18.30 - Chronic kidney disease, stage 3 unspecified Plan 78-year-old female with multiple comorbidities who presented with nausea and vomiting and abdominal pain to the ER. Workup with fairly unremarkable labs however unable to obtain control of patient's nausea and vomiting. Medicine consulted for admission. Discussed case with ER, request admission for further medical management, fluids, serial labs. I agreed to admit. Continues to have nausea and vomiting. Continues to have ileus, concerning for narcotic bowel syndrome. Administered methylnaltrexone this morning, responded well with bowel movement. Passed flatus. Had some improvement in abdominal pain. NG out, advance to full liquid diet. Will monitor overnight, repeat dose of methylnaltrexone in the morning. Plan to discharge to hospice tomorrow. Continues to require inpatient management. Problems addressed as follows: Ileus Abdominal pain Intractable nausea and vomiting -Continues to have abdominal pain, treated with methylnaltrexone 6 mg x 1 this morning, had bowel movement within 2 hours. Will repeat dosage tomorrow. NG out. -Concern for narcotic bowel syndrome/medication induced ileus. Patient continues to necessitate significant opiates which are chronic for her. Holding bowel regimen at this time due to contraindication for stimulant/stool softeners with methylnaltrexone. Discussed case with import export coordinator, will trial Linzess after discharge. Medication sent to her pharmacy for use when she discharges tomorrow. -Continue fentanyl patch 25 mcg every 72 hours -Continue Ativan 0.5 mg PO as needed every 8 hours. -Continue Zofran 4 mg every 6 hours as needed IV -Holding Lasix and spironolactone. Consider resumption daily for ascites management - BUN 16, creatinine 1.1. Potassium 3.5, albumin 3.0, calcium 7.6. White count normal at 5.5. Lab holiday in the morning due to persistent stability of labs over the past 3 days long-term indwelling catheter, recurrent UTIs -Urine negative for nitrate, 1+ leuk esterase, 1+ yeast. 3-5 white cells. Urine culture positive for stenotrophomonas. Will treat with Levaquin 750 mg every 24 hours for 7 days. Anemia: Hemoglobin stable, 7.8. No indication for transfusion. Transfusion threshold with hemoglobin less than 7. Polypharmacy Chronic benzodiazepine and opiate use. - Continue oxycodone 10 mg every 6 hours. Continue gabapentin 600 mg every 6 hours. Diabetes: Continue glargine at reduced dose of 25 units nightly. Sliding scale insulin with fingersticks ACHS. Morning glucose 106. DNR/DNI Holding Eliquis with worsening anemia. Full liquid diet
[2024-05-21 18:41] LABS: POC Glucose,Bedside 114 (70-110)
[2024-05-21 20:00] VITALS: BP 94/61; PULSE 96; RESP 18; TEMP 37.1; O2SAT 100
[2024-05-21] MEDS: SODIUM CHLORIDE 0.9% 10ML VIAL 10 ML IV (20:20)
[2024-05-21] MEDS: INSULIN GLARGINE 100 UNITS/ML 10ML VIAL 25 UNIT SQ (20:21)
[2024-05-21] MEDS: MELATONIN 5MG TABLET 10 MG PO (20:22)
[2024-05-21 23:02] VITALS: PULSE 84; PULSE 87; O2SAT 94
[2024-05-21 23:48] LABS: POC Glucose,Bedside 97 (70-110)
[2024-05-21 23:48] LABS: POC Glucose,Bedside 124 (70-110)
[2024-05-22 04:00] VITALS: BP 99/65; PULSE 71; RESP 18; TEMP 36.8; O2SAT 97; BMI 37.5
[2024-05-22] MEDS: METOCLOPRAMIDE HCL 10MG/2ML VIAL 5 MG IVP ×2 (05:20→10:03)
--- NOTE | 2024-05-22 05:54 | PC.NURSE ---
Addendum entered by Bonnie Osman RN 05/22/24 05:58: Pt glucose 64 @ 0500, Pt denies and does not present with signs of hypoglycemia, Pt given orange juice with sugar added, pt glucose checked again at this time glucose 84. Original Note: Pt glucose 64, juice with sugar added at this time.
--- NOTE | 2024-05-22 06:00 | PC.NURSE ---
Pt is alert and oriented x4 and currently tolerating 3L well @ 97%. Pt did complain of SOB early in the shift and RT was notified pt HOB elevated and educated pt to take deep breaths. Pt has rested well since. Pt glucose low this morning, juice provided.Pt at bedside
[2024-05-22 06:03] LABS: POC Glucose,Bedside 84 (70-110)
[2024-05-22] MEDS: IPRATROPIUM/ALBUTEROL 3 ML NEB IH (06:14)
[2024-05-22 06:15] VITALS: PULSE 88; PULSE 89; O2SAT 99
[2024-05-22] MEDS: GABAPENTIN 600MG TABLET 600 MG PO ×2 (06:20→12:09)
[2024-05-22] MEDS: OXYCODONE 5MG IMMEDIATE RELEASE TABLET 10 MG PO ×2 (06:23→12:09)
[2024-05-22 08:00] VITALS: BP 97/53; PULSE 76; RESP 20; TEMP 36.7; O2SAT 100
--- NOTE | 2024-05-22 08:11 | EXP.PHA.PN ---
Subjective *Date: 05/22/24 *Time: 08:11 Medical Exam Vital signs and Labs for Last 24 Hours: Vital Signs Temp Pulse Pulse Resp BP Pulse Ox O2 Del Method 05/22/24 07:00 Nasal Cannula 05/22/24 06:15 88 05/22/24 06:15 89 05/22/24 06:15 99 Nasal Cannula 05/22/24 06:00 Nasal Cannula 05/22/24 04:53 Nasal Cannula 05/22/24 04:00 98.2 F 71 18 99/65 L 97 Nasal Cannula 05/22/24 03:00 Nasal Cannula 05/22/24 01:00 Nasal Cannula 05/21/24 23:02 84 05/21/24 23:02 87 05/21/24 23:02 94 L Nasal Cannula 05/21/24 23:00 Nasal Cannula 05/21/24 21:00 Nasal Cannula 05/21/24 20:00 98.8 F 96 H 18 94/61 L 100 Nasal Cannula 05/21/24 20:00 100 Nasal Cannula 05/21/24 18:05 Nasal Cannula 05/21/24 17:00 Nasal Cannula 05/21/24 16:00 99.3 F 77 18 136/60 99 Nasal Cannula 05/21/24 14:47 Nasal Cannula 05/21/24 14:24 80 05/21/24 14:24 77 05/21/24 13:00 Nasal Cannula 05/21/24 11:00 Nasal Cannula 05/21/24 09:00 Nasal Cannula O2 Flow Rate 05/22/24 07:00 3 05/22/24 06:15 05/22/24 06:15 05/22/24 06:15 3 05/22/24 06:00 3 05/22/24 04:53 3 05/22/24 04:00 3 05/22/24 03:00 3 05/22/24 01:00 3 05/21/24 23:02 05/21/24 23:02 05/21/24 23:02 3 05/21/24 23:00 3 05/21/24 21:00 3 05/21/24 20:00 3 05/21/24 20:00 3 05/21/24 18:05 3 05/21/24 17:00 3 05/21/24 16:00 3 05/21/24 14:47 3 05/21/24 14:24 05/21/24 14:24 05/21/24 13:00 3 05/21/24 11:00 3 05/21/24 09:00 3 Intake and Output 05/21/24 05/22/24 05/22/24 23:59 07:59 15:59 Intake Total 510 / 1337 Output Total 250 / 250 Balance 510 / 712 -250 / -250 Intake: Intake, Oral Amount 510 / 1337 Output: Output, Urine Amount 250 / 250 Other: Number of Unmeasured Voids 0 Weight 102.143 kg Patient Weight 05/22/24 23:59 Weight 102.143 kg Laboratory Results - last 24 hr 05/21/24 05:58: POC Glucose 97 05/21/24 06:06: Magnesium 2.0 05/21/24 11:40: POC Glucose 105 05/21/24 16:23: POC Glucose 114 H 05/21/24 20:18: POC Glucose 124 H 05/22/24 05:57: POC Glucose 84 I & O for Labs for Last 24 Hours: Intake & Output 05/19/24 05/20/24 05/21/24 05/22/24 23:59 23:59 23:59 23:59 Intake Total 902 / 902 270 / 402 1337 / 1337 Output Total 1075 / 1075 1325 / 1950 625 / 625 250 / 250 Balance -173 / -173 -1055 / -1548 712 / 712 -250 / -250 Weight 100.335 kg 101.333 kg 102.058 kg 102.143 kg The patient's infection will respond to the chosen ABx?: Yes (URINE CULTURE = S. MALTOPHILIA SUSCEPTIBLE TO LEVAQUIN) Is the patient receiving the right drug, dose, and route?: Yes Could a more targeted ABx be ordered?: No How long ABx needed (days)?: 7
[2024-05-22] MEDS: ACETAMINOPHEN 500MG TAB 500 MG PO (08:22)
[2024-05-22] MEDS: LORazepam 0.5MG TABLET 0.5 MG PO (08:22)
--- NOTE | 2024-05-22 09:30 | PC.NURSE ---
TECH NOTE; NURSE NOTIFIED OF BLOOD PRESSURE FOR 0800 VITAL SIGNS AND PT REQUEST FOR PAIN AND ANXIETY MEDICATION. CALL LIGHT WITHIN REACH, NO FURTHER REQUESTS AT THIS TIME Marysol JFEFREY, JAZMIN
[2024-05-22] MEDS: FAMOTIDINE 20MG TABLET 20 MG PO (10:04)
[2024-05-22] MEDS: CITALOPRAM 20MG TABLET 20 MG PO (10:04)
[2024-05-22] MEDS: HYDROXYCHLOROQUINE SULFATE 200MG TABLET 200 MG PO (10:04)
[2024-05-22] MEDS: RELISTOR 12 MG/0.6 ML SQ (10:04)
[2024-05-22] MEDS: EMPAGLIFLOZIN 10MG TABLET 10 MG PO (10:04)
[2024-05-22] MEDS: BISOPROLOL 5MG TABLET 10 MG PO (10:04)
[2024-05-22] MEDS: NYSTATIN CREAM 30GM/TUBE TP ×2 (10:05→13:52)
[2024-05-22] MEDS: SODIUM CHLORIDE 0.9% 10ML VIAL 10 ML IV (10:05)
[2024-05-22] MEDS: PANTOPRAZOLE 40MG VIAL 40 MG IV (10:05)
[2024-05-22 10:07] VITALS: BP 100/46
[2024-05-22] MEDS: FENTANYL 25 MCG TD (10:21)
--- NOTE | 2024-05-22 10:26 | PC.NURSE ---
Fentanyl path placed to left upper arm.
[2024-05-22 11:57] LABS: POC Glucose,Bedside 100 (70-110)
[2024-05-22] MEDS: LEVOFLOXACIN/D5W 750 MG/150 ML 750 MG/150 ML PIGGYBACK 100 MG IV (12:09)
--- NOTE | 2024-05-22 12:24 | EXP.DC.SUM ---
General Admission date:: 05/15/24 Discharge date: 05/22/24 HPI HPI HPI: Mrs. Leon is a 78-year-old female with multiple comorbidities including chronic pain, chronic opiate therapy, chronic oxygen for respiratory failure/end-stage COPD, bedbound status, hypertension, indwelling catheter, recurrent UTIs, diabetes, PTSD who was recently admitted to hospice a little over a month ago. She presented to the ER due to complaint of 2 to 3 days of nausea and vomiting. Has had worsening abdominal pain. Daughter and at bedside support history. Reports that she has had some darker stools over the past few days. Vomiting with mucus and brown emesis. reports he discontinued the patient's alprazolam as of last Tuesday. Was taking it twice a day at that time. Patient denies fever, dyspnea, altered mental status. said he stopped her Xanax because she was sleeping more and when he stopped that she has become more alert and oriented. He was concerned she might have another UTI. Workup in the ER with chronic anemia, better than patient's baseline. Kidney function electrolytes at or better than patient's baseline. CT of abdomen showing increasing ascites and cirrhosis with portal hypertension. White count normal. Attempts to treat nausea and vomiting in the ER were unsuccessful. Medicine consulted for admission and further management. On arrival to the floor, patient's son, daughter, at bedside. There is some confusion as to when her last Xanax was administered. Concerned that she may be having symptoms from withdrawal. Has been on this medication for many years. Patient decided to stop it on his own. Patient's vomiting began 24 to 48 hours after last dose. No known sick contacts. Is oriented on exam. On baseline oxygen of 3 L. Febrile. Complains of generalized abdominal pain, worse in right lower quadrant. Of note, appendix is absent. Hospital Course Hospital Course Hospital Course: Patient admitted for intractable nausea/vomiting, 78-year-old female with multiple comorbidities who presented with nausea and vomiting and abdominal pain to the ER. Workup with fairly unremarkable labs however unable to obtain control of patient's nausea and vomiting. Medicine consulted for admission. Discussed case with ER, request admission for further medical management, fluids, serial labs. Patient diagnosed with ileus, and admitted to medicine service on bowel rest, antiemetics, and as needed pain medicines. 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 Administered methylnaltrexone during hospitalization, with good response to this medication. Patient had flatus, and able to tolerate clears by 05/21/2024. Patient discharged home on nutritional supplements boost/Ensure daily, and with instructions to slowly advance diet as tolerated. Patient noted to have both flatus and bowel movement prior to hospital disposition. Patient's nasogastric tube discontinued for over 24 hours prior to making disposition plans. Will discharge patient on Linzess and back on hospice services at time of hospital discharge. If patient desires, we will also have patient follow-up with risk consulting treasury director Dr. Zhong after hospital discharge for further abdominal discomfort management. Patient also discharged home on Levaquin therapy for empirical treatment of urinary tract infection. Exam Data for Last 24 hours Vital signs and Labs for Last 24 Hours: Temp Pulse Resp BP Pulse Ox O2 Del Method O2 Flow Rate 98.1 F 76 20 100/46 L 100 Nasal Cannula 3 05/22/24 08:00 05/22/24 08:00 05/22/24 08:00 05/22/24 10:07 05/22/24 08:00 05/22/24 08:00 05/22/24 08:00 FiO2 28 05/20/24 18:46 Laboratory Results - last 24 hr 05/21/24 05:58: POC Glucose 97 05/21/24 16:23: POC Glucose 114 H 05/21/24 20:18: POC Glucose 124 H 05/22/24 05:57: POC Glucose 84 05/22/24 11:50: POC Glucose 100 I & O for Last 24 hours: Intake & Output 05/19/24 05/20/24 05/21/24 05/22/24 23:59 23:59 23:59 23:59 Intake Total 902 / 902 270 / 402 1337 / 1337 120 / 120 Output Total 1075 / 1075 1325 / 1950 625 / 625 250 / 250 Balance -173 / -173 -1055 / -1548 712 / 712 -130 / -130 Weight 100.335 kg 101.333 kg 102.058 kg 102.143 kg Constitutional Constitutional: obese and chronically ill appearing *Routine HEENT Exam Head: Present normocephalic ENT: Present mucous membranes moist *Routine Neck Exam Neck: Present supple and full ROM *Routine Respiratory Exam Respiratory: Present CTA bilaterally *Routine Cardiovascular Exam Cardiovascular: Present RRR, Normal S1 and Normal S2 *Routine Abdominal Exam Abdominal: Present soft, distended and guarding *Routine Extremities Exam Extremities: Present full ROM, pulses intact and normal capillary refill *Routine Skin Exam Skin: Present intact and dry *Routine Neurological Exam Neurological: Present alert and oriented X3 Results Data Completed and Pending Labs on day of discharge: Labs from last 24 hours 05/22/24 05/22/24 05/21/24 11:50 05:57 20:18 POC Glucose 100 84 124 H 05/21/24 05/21/24 16:23 05:58 POC Glucose 114 H 97 Impressions Impressions: 05/19/2024 KUB: FINDINGS: Tubes, catheters and devices: Enteral tube is in satisfactory position. Gastrointestinal tract: Nonobstructive bowel gas pattern. Intraperitoneal space: Multiple surgical clips are demonstrated in the left hemiabdomen. Bones/joints: Changes of prior lumbar fusion procedure are visualized. Subjective bony demineralization. IMPRESSION: Enteral tube is in satisfactory position. 05/17/2024 KUB: IMPRESSION: NG tube is present with its tip in the body of the stomach. The stomach remains distended and air-filled. Reviewed, Interpreted and Dictated by Samuel Schneider III, MD Transcribed by Jade Cabrera Authenticated and ERN 05/15/2024 CT abdomen/pelvis FINDINGS: There are moderate right and small left pleural effusions with bibasilar atelectasis. There is cardiomegaly. There is fatty infiltration of the liver. The liver has a nodular contour consistent with cirrhosis. The patient is status post cholecystectomy. There is borderline splenomegaly with spleen measuring 13.1 cm. The adrenals are normal. The pancreas is unremarkable. The kidneys enhance appropriately. The aorta is normal in caliber. There is no adenopathy. There is moderate ascites in the abdomen and pelvis, worse than previous. Note is made of moderate anasarca. The appendix is not identified. Postoperative changes are seen in the sigmoid colon. There is a Huynh catheter with air in the urinary bladder. Postoperative changes are seen near the superior bladder. Patient is status post hysterectomy. There is no adenopathy. IMPRESSION: Cirrhosis with portal hypertension. Worsening ascites. 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: Status: Acute Code(s): K63.89 - Other specified diseases of intestine; T40.605A - Adverse effect of unspecified narcotics, initial encounter (3) Abdominal pain: Status: Acute Code(s): R10.9 - Unspecified abdominal pain Qualifiers: Abdominal location: generalized Qualified Code(s): R10.84 - Generalized abdominal pain (4) Nausea & vomiting: Status: Acute Code(s): R11.2 - Nausea with vomiting, unspecified Qualifiers: Vomiting type: unspecified Qualified Code(s): R11.2 - Nausea with vomiting, unspecified (5) Elevated troponin: Status: Acute Code(s): R79.89 - Other specified abnormal findings of blood chemistry (6) Candidal intertrigo: Status: Acute Code(s): B37.2 - Candidiasis of skin and nail (7) Diabetes: Status: Chronic Code(s): E11.9 - Type 2 diabetes mellitus without complications Qualifiers: Diabetes mellitus complication status: with other specified complication Diabetes mellitus assisted insulin use: with assisted use Diabetes mellitus type: type 2 Qualified Code(s): E11.69 - Type 2 diabetes mellitus with other specified complication; Z79.4 - custodial (current) use of insulin (8) Hypertension: Status: Acute Code(s): I10 - Essential (primary) hypertension Qualifiers: Hypertension type: primary hypertension Qualified Code(s): I10 - Essential (primary) hypertension (9) Hospice care patient: Status: Acute Code(s): Z51.5 - Encounter for palliative care (10) Polypharmacy: Status: Chronic Code(s): Z79.899 - Other exterminator termite (current) drug therapy (11) Chronic narcotic use: Status: Chronic Code(s): F11.90 - Opioid use, unspecified, uncomplicated (12) Lumbosacral radiculopathy due to degenerative joint disease of spine: Status: Chronic Code(s): M47.27 - Other spondylosis with radiculopathy, lumbosacral region (13) Chronic hypoxemic respiratory failure: Status: Chronic Code(s): J96.11 - Chronic respiratory failure with hypoxia (14) CKD (chronic kidney disease) stage 3, GFR 30-59 ml/min: Status: Acute Code(s): N18.30 - Chronic kidney disease, stage 3 unspecified Qualifiers: Chronic kidney disease stage 3 subtype: stage 3a (GFR 45-59) Qualified Code(s): N18.31 - Chronic kidney disease, stage 3a Meds Home Medications and Allergies Home Medications ?Medication ?Instructions ?Recorded ?Confirmed ?Type apixaban 5 mg tablet (Eliquis) 5 mg PO BID 09/27/23 05/15/24 History bisoprolol fumarate 10 mg tablet 10 mg PO DAILY 09/27/23 05/15/24 History empagliflozin 10 mg tablet 10 mg PO DAILY 09/27/23 05/15/24 History (Jardiance) famotidine 20 mg tablet 20 mg PO BID 09/27/23 05/15/24 History fentanyl 25 mcg/hr transdermal 25 mcg transdermal Q72H 09/27/23 05/15/24 History patch gabapentin 600 mg tablet 600 mg PO QID 09/27/23 05/15/24 History hydroxychloroquine 200 mg tablet 200 mg PO BID 09/27/23 05/15/24 History insulin aspart U-100 100 unit/mL 10 unit SQ DAILYP PRN Hyperglycemia 09/27/23 05/15/24 History (3 mL) subcutaneous pen (Novolog FlexPen U-100 Insulin aspart) pantoprazole 40 mg tablet,delayed 40 mg PO BID 09/27/23 05/15/24 History release acetaminophen 500 mg tablet 500 mg PO BIDP PRN Mild Pain 09/28/23 05/15/24 History (Scale Score 1-4) melatonin 3 mg tablet 10 mg PO HS 09/28/23 05/15/24 History escitalopram oxalate 5 mg tablet 5 mg PO DAILY 04/03/24 05/16/24 History furosemide 80 mg tablet 80 mg PO MOWEFR 04/03/24 05/16/24 History oxycodone 10 mg tablet 10 mg PO QIDP PRN Moderate Pain 04/03/24 05/16/24 History (Scale Score 5-6) fosfomycin tromethamine 3 gram 3 g PO Q3D 3 doses #3 ea 04/29/24 05/15/24 Rx oral packet hyoscyamine sulfate 0.125 mg 0.125 mg PO Q4HP PRN Secretions 05/15/24 05/16/24 History sublingual tablet ipratropium 0.5 mg-albuterol 3 mg 1 ml inhalation Q4HP PRN Shortness 05/15/24 05/16/24 History (2.5 mg base)/3 mL nebulization Of Breath soln nitrofurantoin 100 mg PO DAILY chronic UTI 05/16/24 05/16/24 History monohydrate/macrocrystals 100 mg capsule insulin glargine 100 unit/mL 30 unit (0.3 mL) SQ HS 30 days #0 05/21/24 05/15/24 Rx subcutaneous solution (Lantus mL U-100 Insulin) levofloxacin 750 mg tablet 750 mg PO DAILY #2 tabs 05/21/24 Rx linaclotide 290 mcg capsule 290 mcg PO DAILY 30 days #30 caps 05/21/24 Rx (Linzess) metoclopramide HCl 5 mg tablet 5 mg PO Q6H PRN nausea and 05/21/24 Rx vomiting 30 days #120 tabs nystatin 100,000 unit/gram topical 1 applic topical QID 10 days #30 05/21/24 Rx cream grams sennosides 8.6 mg-docusate sodium 1 tab PO BID 30 days #60 tabs 05/21/24 Rx 50 mg tablet (Stimulant Laxative Plus) New Prescriptions to Start Prescriptions: levofloxacin Shun Oconnell linaclotide [Linzess] Shun Oconnell metoclopramide HCl Shun Oconnell nystatin Shun Oconnell sennosides-docusate sodium [Stimulant Laxative Plus] Shun Oconnell Allergies Allergy/AdvReac Type Severity Reaction Status Date / Time amitriptyline [From Elavil] Allergy Severe Q-[id number]/THROAT; Verified 03/19/24 14:25 SEIZURES chlorpromazine Allergy Severe SEIZURES Verified 03/19/24 14:25 [From Thorazine] dichloralphenazone Allergy Severe S-SWELLS-OR Verified 03/19/24 14:25 [From Midrin] AL/THROAT isometheptene [From Midrin] Allergy Severe S-SWELLS-OR Verified 03/19/24 14:25 AL/THROAT prochlorperazine Allergy Severe SEIZURES Verified 03/19/24 14:25 [From Compazine] adhesive tape Allergy Intermediate I-RASH Verified 03/19/24 14:25 aspirin Allergy Intermediate COLD Verified 08/11/23 14:29 SWEATS , N/V cyclobenzaprine Allergy Unknown Unknown Verified 08/11/23 14:29 [From FLEXERIL] allergy reaction duloxetine [DULOXETINE] Allergy Unknown Unknown Verified 08/11/23 14:29 allergy reaction Iodinated Contrast Media Allergy Unknown Unknown Verified 08/11/23 14:29 [IODINATED CONTRAST MEDIA - allergy ORAL AND] reaction Sulfa (Sulfonamide Allergy Unknown CONTRAINDICATED Verified 03/19/24 14:25 Antibiotics) WITH ASTHMA trimethoprim [TRIMETHOPRIM] Allergy Unknown Unknown Verified 03/19/24 14:25 allergy reaction leflunomide Allergy rash, Verified 03/19/24 14:25 redness Macrolide Antibiotics Allergy rash, Verified 03/19/24 14:25 redness Beta-Blockers AdvReac Severe MAKES Verified 03/19/24 14:25 (Beta-Adrenergic Bloc ASTHMA WORSE caffeine [From Cafergot] AdvReac Mild NA-NAUSEA Verified 03/19/24 14:25 ergotamine [From Cafergot] AdvReac Mild NA-NAUSEA Verified 03/19/24 14:25 pregabalin [From Lyrica] AdvReac Mild TOO Verified 03/19/24 14:25 SEDATED NSAIDS (Non-Steroidal AdvReac Unknown Verified 03/19/24 14:25 Anti-Inflamma allergy reaction Discharge Plan Disposition Patient Disposition: Hospice - Home Condition: Undetermined Discharge Order Discharge Orders: Discharge Order (Routine); Ordered 05/22/24 Ordered By: Viktor Keith Follow up Plan Follow up with: Geovany Medel MD [Primary Care Provider] - 2 weeks Prescriptions/Medication Reconciliation: New nystatin 100,000 unit/gram Cream 1 applic topical QID 10 Days Qty: 30 0RF sennosides-docusate sodium [Stimulant Laxative Plus] 8.6-50 mg Tablet 1 tab PO BID 30 Days Qty: 60 0RF Linzess 290 mcg capsule 290 mcg PO DAILY 30 Days Qty: 30 0RF metoclopramide HCl 5 mg tablet 5 mg PO Q6H PRN (Reason: nausea and vomiting) 30 Days Qty: 120 0RF levofloxacin 750 mg tablet 750 mg PO DAILY Qty: 2 0RF Rx Instructions: first dose 05/23/24 Continued furosemide 80 mg tablet 80 mg PO Rx Instructions: once daily every tuesday, tuesday, and tuesday escitalopram oxalate 5 mg tablet 5 mg PO DAILY Rx Instructions: TAKE 1 TABLET BY MOUTH IN THE MORNING oxycodone 10 mg tablet 10 mg PO QIDP PRN (Reason: Moderate Pain (Scale Score 5-6)) fosfomycin tromethamine 3 gram packet 3 g PO Q3D Qty: 3 0RF ipratropium-albuterol 0.5 mg-3 mg(2.5 mg base)/3 mL solution for nebulization 1 ml INHALATION Q4HP PRN (Reason: Shortness Of Breath) nitrofurantoin monohyd/m-cryst 100 mg capsule 100 mg PO DAILY Patient Comments: 1 Capsule Oral 1 Time Daily Indication: chronic UTI gabapentin 600 mg tablet 600 mg PO QID bisoprolol fumarate 10 mg tablet 10 mg PO DAILY famotidine 20 mg tablet 20 mg PO BID pantoprazole 40 mg tablet,delayed release (DR/EC) 40 mg PO BID hydroxychloroquine 200 mg tablet 200 mg PO BID fentanyl 25 mcg/hr patch 72 hour 25 mcg transdermal Q72H insulin aspart U-100 [Novolog FlexPen U-100 Insulin] 100 unit/mL (3 mL) insulin pen 10 unit SQ DAILYP PRN (Reason: Hyperglycemia) Eliquis 5 mg tablet 5 mg PO BID Jardiance 10 mg tablet 10 mg PO DAILY melatonin 3 mg Tablet 10 mg PO HS acetaminophen 500 mg Tablet 500 mg PO BIDP PRN (Reason: Mild Pain (Scale Score 1-4)) Changed insulin glargine [Lantus U-100 Insulin] 100 unit/mL solution 30 unit SQ HS 30 Days Qty: 0 0RF Held hyoscyamine sulfate 0.125 mg tablet, sublingual 0.125 mg PO Q4HP PRN (Reason: Secretions) Hold Instructions: Suspect this may have complicated her bowel function. Would not recommend continuing this medication. Discontinued guaifenesin 600 mg tablet extended release 12hr 600 mg PO BID Problem Reconciliation Problems Reviewed?: Yes Patient Discharge Instructions ACTIVITY: Continue current activity DIET: continue same diet Patient Instructions: DI for Nausea -- Adult, DI for Vomiting -- Adult, Catheter-associated Urinary Tract Infection Print Language: Polish Providers Primary Care Provider: Geovany Medel Admit Provider: Shun Oconnell Attending Provider: Shun Oconnell
[2024-05-22] MEDS: ONDANSETRON 4MG/2ML VIAL 4 MG IV (13:52)
== END 2024-05-22 15:29 | disposition hospice, home (50) | DRG 389 ==
LOC: ER 09:53 → 2ND 16:50
PROVIDERS: Admitting Provider Internal Medicine Adolescent Medicine; Emergency Provider Emergency Medicine; PCP Internal Medicine; Visit Provider Internal Medicine Adolescent Medicine
DX: I13.0 Hypertensive heart and chronic kidney disease with heart failure and stage 1 through stage 4 chronic kidney disease, or unspecified chronic kidney disease (principal); J96.11 Chronic respiratory failure with hypoxia; N18.4 Chronic kidney disease, stage 4 (severe); K56.7 Ileus, unspecified; D63.1 Anemia in chronic kidney disease; Z51.5 Encounter for palliative care; E11.69 Type 2 diabetes mellitus with other specified complication; Z79.4 Long term (current) use of insulin; G47.30 Sleep apnea, unspecified; E11.22 Type 2 diabetes mellitus with diabetic chronic kidney disease; T40.605A Adverse effect of unspecified narcotics, initial encounter; B37.2 Candidiasis of skin and nail; F11.90 Opioid use, unspecified, uncomplicated; E11.40 Type 2 diabetes mellitus with diabetic neuropathy, unspecified; K21.9 Gastro-esophageal reflux disease without esophagitis; N18.31 Chronic kidney disease, stage 3a; E87.6 Hypokalemia; I12.9 Hypertensive chronic kidney disease with stage 1 through stage 4 chronic kidney disease, or unspecified chronic kidney disease; N18.9 Chronic kidney disease, unspecified
CPT/HCPCS: 36415; 74018; 74177; 80053; 81001; 82962; 83605; 83690; 83735; 84484; 85007; 85025; 85027; 87086; 87088; 87186; 93005; 94640; 94760; 94761; 99285; J1200; J1940; J1956; J2060; J2270; J2405; J2550; J2765; J3480; J7030; J7120; J7620; Q0162; Q9967